=== PATIENT | female | born 1945 | race African-American/Black ===

== ENCOUNTER 2016-09-07 20:18 | Emergency (ER) | payer MEDICARE, OTHER ==
[~2016-09-07] VITALS: Ht 167.6 cm; Wt 136.1 kg
[~2016-09-07 20:18] MED LIST: ASPI81TA11 PO; CETI10TA16 PO; DARB60DI SQ; DILT180C29 PO; EZET10TA3 PO; FLUT16SP NS; INSU100C4 SQ; INSU100I13 SQ; LEVO50TA5 PO; LUBI24CA5 PO; LUBI8CAP3 PO; MIDO5TAB PO; RANI300C PO; SEVE800T9 PO; SIMV40TA3 PO; WARF3TAB7 PO
[2016-09-07] MEDS ORDERED: HYDROCODONE/APAP 5/325MG TABLET. PO ONE (22:00)
[2016-09-07 22:30] VITALS: BP 155/65
[2016-09-07] MEDS ORDERED: HYDR-2666 PO (22:55)
--- NOTE | 2016-09-07 22:56 | PHYS DOC ---
Past Medical History Past Medical History: Anemia, CAD, Cancer, Diabetes-Type II, High Cholesterol, Heart Disease, Hypertension, Renal Failure (on Hemodialysis), Other Additional Past Medical Histor: uterine cancer Past Surgical History: Hysterectomy, Other Additional Past Surgical Histo: FISTULA- L upper arm Alcohol Use: None Drug Use: None Adult General Chief Complaint Chief Complaint: UPPER EXTREMITY PAIN HPI HPI Patient is a 70 year old female who presents with 2 days worse than chronic right shoulder pain. Has pain mostly to anterior shoulder. States pain is constant ache at rest, but it is severe with range of motion of shoulder. Has shooting pains down the right arm. She denies injury or inciting event. She denies numbness, tingling, weakness, chest pain, dyspnea, lightheadedness, diaphoresis. Review of Systems Review of Systems Constitutional: Denies fever or chills [] Eyes: Denies change in visual acuity, redness, or eye pain [] HENT: Denies nasal congestion or sore throat [] Respiratory: Denies cough or shortness of breath [] Cardiovascular: No additional information not addressed in HPI [] GI: Denies abdominal pain, nausea, vomiting, bloody stools or diarrhea [] : Denies dysuria or hematuria [] Musculoskeletal: Denies back pain [] Integument: Denies rash or skin lesions [] Neurologic: Denies headache, focal weakness or sensory changes [] Endocrine: Denies polyuria or polydipsia [] Current Medications Current Medications Current Medications Medications (Trade) Dose Ordered Sig/Kenney Start Time Stop Time Status Last Admin Dose Admin Acetaminophen/ Hydrocodone Bitart (Lortab 5/325) 1 tab 1X ONCE 09/07/16 22:00 09/07/16 22:01 DC 09/07/16 21:57 1 TAB Allergies Allergies Allergies Coded Allergies Type Severity Reaction Last Updated Verified No Known Drug Allergies 03/08/14 No Physical Exam Physical Exam Constitutional: Well developed, well nourished, no acute distress, non-toxic appearance. [] HENT: Normocephalic, atraumatic, bilateral external ears normal, oropharynx moist, nose normal. [] Eyes: PERRLA, EOMI. [] Neck: Normal range of motion, supple. [] Cardiovascular:Heart rate regular rhythm [] Lungs & Thorax: Bilateral breath sounds clear to auscultation [] Abdomen: Bowel sounds normal, soft, no tenderness. [] Skin: Warm, dry, no erythema, no rash. [] Back: Normal ROM. [] Extremities: RUE with no obvious deformity or discoloration; Has tenderness to AC joint and anterior shoulder soft tissues with no palpable abnormality; Full ROM with shoulder/elbow/wrist/hand, but has severe pain with shoulder ROM; Can pronate/supinate; Can make fist/ok sign/thumb up/finger cross and spread; Can flex/ex wrist; Good radial pulse and brisk cap refill equal bilaterally; sensation intact to light touch m/u/r/ax nerves Neurologic: Alert and oriented X 3, normal motor function, normal sensory function, no focal deficits noted. [] Psychologic: Affect normal, judgement normal, mood normal. [] Current Patient Data Vital Signs Vital Signs Date Time Temp Pulse Resp B/P Pulse Ox O2 Delivery O2 Flow Rate FiO2 09/07/16 22:30 78 155/65 97 Room Air 09/07/16 21:57 18 09/07/16 20:25 97.5 97.5 Radiology/Procedures Radiology/Procedures Right shoulder x-rays interpreted by me with no acute fracture or dislocation, has degenerative changes Course & Med Decision Making Course & Med Decision Making Pertinent Labs and Imaging studies reviewed. (See chart for details) Suspect shoulder degenerative disease vs rotator cuff pathology. Discussed need for further workup and pain management by PCP. Return precautions given. She understands and agrees with plan. Dragon Disclaimer Dragon Disclaimer This electronic medical record was generated, in whole or in part, using a voice recognition dictation system. Departure Departure Impression: Primary Impression: Right shoulder pain Disposition: 01 HOME, SELF-CARE Condition: STABLE Referrals: Joanne HUFF MD (PCP) Patient Instructions: Shoulder Pain, [id number] Additional Instructions: Take Tylenol as needed for moderate pain. Take hydrocodone as needed for severe pain. Do not drink, drive or operate heavy machinery after taking hydrocodone as it may make you sleepy. Follow-up with your primary care doctor. Return for any concerns. Scripts Hydrocodone Bit/Acetaminophen (Hydrocodone-Apap 5-325 )1 Each Tablet1-2 Tab PO PRN Q6HRS PRN PAIN #10 TAB Prov:Heide MCGARRY MD 09/07/16 Problem Qualifiers Primary Impression: Right shoulder pain Chronicity: acute Qualified Code: M25.511 - Pain in right shoulder Heide MCGARRY MD Sep 07, 2016 22:56
--- NOTE | 2016-09-08 07:54 | RAD ---
Right shoulder, 3 views, 09/07/2016: History: Shoulder pain There are severe degenerative changes at the glenohumeral articulation. Tiny soft tissue calcifications along the lateral aspect of the humeral head are probably of tendinous origin. There is mild degenerative change at the AC joint. No acute fracture or dislocation is identified. IMPRESSION: 1. Severe degenerative change. 2. No acute bony abnormality is detected.
== END 2016-09-07 23:02 | disposition home or self-care (01) ==
LOC: ER 20:18
DX: M25.511 Pain in right shoulder (principal); G89.29 Other chronic pain; E11.9 Type 2 diabetes mellitus without complications; E78.00 Pure hypercholesterolemia, unspecified; I25.10 Atherosclerotic heart disease of native coronary artery without angina pectoris; Z99.2 Dependence on renal dialysis; E11.22 Type 2 diabetes mellitus with diabetic chronic kidney disease; I12.9 Hypertensive chronic kidney disease with stage 1 through stage 4 chronic kidney disease, or unspecified chronic kidney disease; N18.9 Chronic kidney disease, unspecified; Z90.710 Acquired absence of both cervix and uterus
CPT/HCPCS: 73030; 99284

== ENCOUNTER 2016-12-14 11:02 | Emergency (ER) | payer MEDICARE, OTHER ==
[~2016-12-14] VITALS: Ht 167.6 cm; Wt 136.1 kg
[~2016-12-14 11:02] MED LIST changes: +EZET10TA18 PO; -EZET10TA3 PO; +HYDR-2758 PO; -LUBI24CA5 PO; +LUBI24CA7 PO; -LUBI8CAP3 PO; +LUBI8CAP4 PO
[2016-12-14] MEDS ORDERED: oxyCODONE/APAP 5/325 1 TAB TABLET PO ONE (11:45)
--- NOTE | 2016-12-14 11:45 | RAD ---
Indication: Pain in the left great toe. Time of exam 11:37 AM 3 views of the left great toe demonstrate 2 linear metallic opacities within the soft tissues of the great toe. These are located distally and slightly lateral to the tuft of the great toe. These appear to be closer to the plantar surface. The more distal opacity is approximately 7 mm in length and the slightly more proximal opacity is 6 mm in length. No fractures are seen. There are severe degenerative changes of the interphalangeal joint of the great toe. The MTP joint is intact. In addition, there appears to be a linear metallic opacity adjacent to the proximal phalanx of the third toe, along the medial cortex mid shaft. This too is consistent with a foreign body. The midfoot is unremarkable. There is a large plantar calcaneal spur. Impression: Foreign bodies within the great toe and third toe, as described. Impression: Linear metallic opacities within the soft tissues of the great toe, lateral to the tuft, consistent with foreign bodies.
--- NOTE | 2016-12-14 11:50 | PHYS DOC ---
Past Medical History Past Medical History: Anemia, CAD, Cancer, Diabetes-Type II, High Cholesterol, Heart Disease, Hypertension, Renal Failure, Other Additional Past Medical Histor: uterine cancer Past Surgical History: Hysterectomy, Other Additional Past Surgical Histo: FISTULA- L upper arm Alcohol Use: None Drug Use: None Adult General Chief Complaint Chief Complaint: LOWER EXT PAIN HPI HPI Patient is a 71 year old female presenting to the emergency department for evaluation of left big toe pain that started yesterday and has persisted. The big toe phalangeal joint has redness medially with some swelling but there is no erythema warmth or color change otherwise. She has toenails painted on but from the part that is not exposed appear she has normal cap refill. She denies any weakness numbness or tingling and she has a strong dorsalis pedis pulse. Patient denies any history of gout but says that she has a family history of it. Review of Systems Review of Systems Constitutional: Denies fever or chills [] Respiratory: Denies cough or shortness of breath [] Cardiovascular: No additional information not addressed in HPI [] GI: Denies abdominal pain, nausea, vomiting, bloody stools or diarrhea [] Musculoskeletal: + joint pain [] Integument: + redness Current Medications Current Medications Current Medications Medications (Trade) Dose Ordered Sig/Kenney Start Time Stop Time Status Last Admin Dose Admin Dexamethasone (Decadron) 8 mg 1X STAT 12/14/16 12:06 12/14/16 12:08 DC Oxycodone/ Acetaminophen (Percocet 5/325) 2 tab 1X ONCE 12/14/16 11:45 12/14/16 11:46 DC 12/14/16 11:39 2 TAB Allergies Allergies Allergies Coded Allergies Type Severity Reaction Last Updated Verified No Known Drug Allergies 03/08/14 No Physical Exam Physical Exam Constitutional: Well developed, well nourished, no acute distress, non-toxic appearance. [] Cardiovascular:Heart rate regular rhythm, no murmur [] Lungs & Thorax: Bilateral breath sounds clear to auscultation [] Abdomen: Bowel sounds normal, soft, no tenderness, no masses, no pulsatile masses. [] Skin: Warm, dry, no erythema, no rash. [] Back: No tenderness, no CVA tenderness. [] Extremities: No tenderness, no cyanosis, no clubbing, ROM intact, no edema. [] Neurologic: Alert and oriented X 3, normal motor function, normal sensory function, no focal deficits noted. [] Current Patient Data Vital Signs Vital Signs Date Time Temp Pulse Resp B/P (MAP) Pulse Ox O2 Delivery O2 Flow Rate FiO2 12/14/16 11:39 16 12/14/16 11:20 98.1 80 154/67 (96) 100 Room Air 98.1 EKG EKG [] Radiology/Procedures Radiology/Procedures Indication: Pain in the left great toe. Time of exam 11:37 AM 3 views of the left great toe demonstrate 2 linear metallic opacities within the soft tissues of the great toe. These are located distally and slightly lateral to the tuft of the great toe. These appear to be closer to the plantar surface. The more distal opacity is approximately 7 mm in length and the slightly more proximal opacity is 6 mm in length. No fractures are seen. There are severe degenerative changes of the interphalangeal joint of the great toe. The MTP joint is intact. In addition, there appears to be a linear metallic opacity adjacent to the proximal phalanx of the third toe, along the medial cortex mid shaft. This too is consistent with a foreign body. The midfoot is unremarkable. There is a large plantar calcaneal spur. Impression: Foreign bodies within the great toe and third toe, as described. Impression: Linear metallic opacities within the soft tissues of the great toe, lateral to the tuft, consistent with foreign bodies. DICTATED and SIGNED BY: KRISHAN EISENBERG MD DATE: 12/14/16 1136 Course & Med Decision Making Course & Med Decision Making I spoke to Dr. Huff and he said these foreign bodies have been noted on prior x- rays and said that there was no etiology to these foreign bodies found but they have been there for years. This likely has nothing to do with her presentation today so she'll be treated for possible gout flare I do not see any signs of limb ischemia DVT or acute infection. Patient's pain is better with Percocet here and she'll be given a small dose of Decadron as well. She was told that she needs to watch her sugars 3-4 times a day and adjust her insulin as her blood sugars are likely rise. Patient and daughter aware and agreeable with plan for discharge and verbalized understanding of the need for follow-up and strict ER return precautions discussed worsening pain redness swelling or other general concerns. Dr. Huff said he would follow her on Friday to ensure improvement and patient verbalized understanding of this. Dragon Disclaimer Dragon Disclaimer This electronic medical record was generated, in whole or in part, using a voice recognition dictation system. Departure Departure Impression: Primary Impression: Toe pain, left Referrals: KELSIE HUFF MD (PCP) Patient Instructions: Gout Additional Instructions: DR HUFF WANTS TO SEE YOU ON FRIDAY. TAKE THE PERCOCET FOR PAIN. IF YOU HAVE WORSENING REDNESS, SWELLING, FEVERS, OR OTHER GENERAL CONCERNS COME BACK TO THE ER IMMEDIATELY. THANK YOU! Scripts Oxycodone/Apap 5-325 (PERCOCET 5-325 MG TABLET) 1 Each Tablet 1 TAB PO PRN Q6HRS Y for PAIN, #20 TAB 0 Refills Prov: ELLIE MAJANO DO 12/14/16 ELLIE MAJANO DO Dec 14, 2016 11:50
[2016-12-14] MEDS ORDERED: DEXAMETHASONE 4 MG TABLET PO STA (12:06)
[2016-12-14] MEDS ORDERED: OXYC-323 PO (12:09)
[2016-12-14 12:35] VITALS: BP 144/65
[2016-12-20] MEDS ORDERED: FOLI0.8T3 PO (12:37)
[2016-12-20] MEDS ORDERED: CINA30TA2 PO (12:37)
== END 2016-12-14 12:34 | disposition home or self-care (01) ==
LOC: ER 11:02
DX: M79.675 Pain in left toe(s) (principal); I25.10 Atherosclerotic heart disease of native coronary artery without angina pectoris; E78.00 Pure hypercholesterolemia, unspecified; I13.10 Hypertensive heart and chronic kidney disease without heart failure, with stage 1 through stage 4 chronic kidney disease, or unspecified chronic kidney disease; E11.22 Type 2 diabetes mellitus with diabetic chronic kidney disease; N18.9 Chronic kidney disease, unspecified; Z90.710 Acquired absence of both cervix and uterus; Z79.4 Long term (current) use of insulin
CPT/HCPCS: 73630; 99284; J8540

== ENCOUNTER → 2016-12-20 | Outpatient (CLI) | payer MEDICARE, OTHER ==
[~2016-12-20] VITALS: Ht 167.6 cm; Wt 136.1 kg
[~2016-12-20] MED LIST changes: +ALTEPLASE 2MG VIAL 10 MG in IV NORMAL SALINE 50ML 50 ML IV ONE; +CINA30TA2 PO; +FOLI0.8T3 PO; +HEPARIN for IV BOLUS 10,000 UNIT/10 ML VIAL. IV ONE; +HEPARIN for IV BOLUS 10,000 UNIT/10 ML VIAL. ONE; +HYDROmorphone 2 MG/ML VIAL IV PRN; +IODIXANOL 320 MG/ML 100 ML VIAL. IART ONE; +IODIXANOL 320 MG/ML 100 ML VIAL. ONE; +IODIXANOL 320MG/ML 50ML VIAL. ONE; +IV RINGERS,LACTATED 1000ML 1,000 ML IV SCH; +LIDOCAINE 1% / SOD BICARB 8.4% 20 ML VIAL. IJ ONE; +LIDOCAINE 1% 1 ML SYRINGE. ID PRN; +MIDAZOLAM HCL/PF 2 MG/2 ML VIAL. ONE; +MORPHINE SULFATE 2 MG/ML DISP.SYRIN. IV PRN; +ONDANSETRON PF 4 MG/2 ML VIAL. IV PRN; +OXYC-323 PO; +PROCHLORPERAZINE 10 MG/2 ML VIAL. IV PRN; +PROPOFOL 20 ML IV ONE; +PROPOFOL 50 ML IV ONE; +SODIUM POLYSTYRENE SULFONATE 15 GM/60 ML ORAL.SUSP. PO ONE; +fentaNYL PF VIAL 100 MCG/2 ML VIAL IV PRN; +fentaNYL PF VIAL 100 MCG/2 ML VIAL ONE
[2016-12-20 13:23] LABS: BASO % 1 % (0-3); EOS % 1 % (0-3); HEMATOCRIT 31.2 % (36.0-47.0); LYMPH # 1.6 x10^3/uL (1.0-4.8); LYMPH % 21 % (24-48); MEAN CORPUSCULAR HEMOGLOBIN 32 pg (25-35); MEAN CORPUSCULAR HGB CONC 32 g/dL (31-37); MEAN CORPUSCULAR VOLUME 98 fL (79-100); MONO % 6 % (0-9); NEUT % 72 % (31-73); PLATELET COUNT 185 x10^3/uL (140-400); RED BLOOD COUNT 3.17 x10^6/uL (3.50-5.40); RED CELL DISTRIBUTION WIDTH 15.1 % (11.5-14.5); WHITE BLOOD COUNT 7.7 x10^3/uL (4.0-11.0)
[2016-12-20 13:33] LABS: INR 1.1 (0.8-1.1); PROTHROMBIN TIME PATIENT 13.7 SEC (11.7-14.0)
[2016-12-20 13:53] LABS: CALCIUM 8.4 mg/dL (8.5-10.1); CREATININE 13.8 mg/dL (0.6-1.0); GFR 3.2; POTASSIUM 5.8 mmol/L (3.5-5.1)
[2016-12-20 13:54] VITALS: BP_SYST 204
--- NOTE | 2016-12-20 15:55 | PDOC1 ---
History and Physical Date of Procedure Date of Admission 12/20/16 Procedure Procedure Power Pulse AngioJet t-PA declot left upper arm HeRO graft Indication Indication 71 YO diabetic female with ESRD and with thrombosed HeRO graft. Past Medical History Past Medical History See Nursing Pre Procedure PMH Past Surgical History Past Surgical History See Nursing Pre Procedure PSH Current Medications Current Medications Current Medications Alteplase, Recombinant 10 mg/ Sodium Chloride 50 ml @ 0 mls/hr 1X ONCE IV ; Start 12/20/16 at 13:15; Stop 12/20/16 at 13:16; Status DC Propofol 20 ml @ As Directed STK-MED ONCE IV ; Start 12/20/16 at 13:01; Stop 12/20 at 13:02; Status DC Propofol 50 ml @ As Directed STK-MED ONCE IV ; Start 12/20/16 at 13:01; Stop 12/20 at 13:02; Status DC Midazolam HCl (Versed) 2 mg STK-MED ONCE .ROUTE ; Start 12/20/16 at 13:02; Stop 12/20/16 at 13:03; Status DC Iodixanol (Visipaque 320) 50 ml STK-MED ONCE .ROUTE ; Start 12/20/16 at 13:15; Stop 12/20/16 at 13:16; Status DC Lidocaine/Sodium Bicarbonate (Buffered Lidocaine 1%) 20 ml STK-MED ONCE IJ ; Start 12/20/16 at 13:16; Stop 12/20/16 at 13:17; Status DC Heparin Sodium/ Sodium Chloride 500 ml @ As Directed STK-MED ONCE .ROUTE ; Start 12/20/16 at 13:16; Stop 12/20/16 at 13:17; Status DC Iodixanol (Visipaque 320) 100 ml STK-MED ONCE .ROUTE ; Start 12/20/16 at 13:16; Stop 12/20/16 at 13:17; Status DC Heparin Sodium (Porcine) (Heparin Sodium) 10,000 unit STK-MED ONCE .ROUTE ; Start 12/20/16 at 14:13; Stop 12/20/16 at 14:14; Status DC Heparin Sodium/ Sodium Chloride 1,000 unit 1X ONCE IART ; Start 12/20/16 at 14: 15; Stop 12/20/16 at 14:17; Status DC Lidocaine/Sodium Bicarbonate (Buffered Lidocaine 1%) 20 ml 1X ONCE IJ ; Start 12/20/16 at 14:15; Stop 12/20/16 at 14:17; Status DC Iodixanol (Visipaque 320) 100 ml 1X ONCE IART ; Start 12/20/16 at 14:15; Stop at 14:17; Status DC Heparin Sodium (Porcine) (Heparin Sodium) 4,000 unit 1X ONCE IV ; Start at 14:15; Stop 12/20/16 at 14:17; Status DC Ondansetron HCl (Zofran) 4 mg PRN Q6HRS PRN IV NAUSEA/VOMITING; Start 12/20/16 at 14:30; Stop 12/21/16 at 14:29 Fentanyl Citrate (Fentanyl 2ml Vial) 25 mcg PRN Q5MIN PRN IV MILD PAIN; Start 12/20/16 at 14:30; Stop 12/21/16 at 14:29 Fentanyl Citrate (Fentanyl 2ml Vial) 50 mcg PRN Q5MIN PRN IV MODERATE PAIN; Start 12/20/16 at 14:30; Stop 12/21/16 at 14:29 Morphine Sulfate 1 mg PRN Q10MIN PRN IV SEVERE PAIN; Start 12/20/16 at 14:30; Stop 12/21/16 at 14:29 Ringer's Solution 1,000 ml @ 30 mls/hr Q24H IV ; Start 12/20/16 at 14:20; Stop 12/21/16 at 02:19 Lidocaine HCl 2 ml PRN 1X PRN ID PRIOR TO IV START; Start 12/20/16 at 14:30; Stop 12/21/16 at 14:29 Hydromorphone HCl (Dilaudid) 0.5 mg PRN Q10MIN PRN IV SEV PAIN, Second choice; Start 12/20/16 at 14:30; Stop 12/21/16 at 14:29 Prochlorperazine Edisylate (Compazine) 5 mg PACU PRN PRN IV NAUSEA, MRX1; Start 12/20/16 at 14:30; Stop 12/21/16 at 14:29 Propofol 50 ml @ As Directed STK-MED ONCE IV ; Start 12/20/16 at 14:57; Stop 12/20 at 14:58; Status DC Fentanyl Citrate (Fentanyl 2ml Vial) 100 mcg STK-MED ONCE .ROUTE ; Start at 14:57; Stop 12/20/16 at 14:58; Status DC Iodixanol (Visipaque 320) 50 ml STK-MED ONCE .ROUTE ; Start 12/20/16 at 15:17; Stop 12/20/16 at 15:18; Status DC Active Scripts Active Hydrocodone-Apap 5-325 (Hydrocodone Bit/Acetaminophen) 1 Each Tablet 1-2 Tab PO PRN Q6HRS PRN Lantus Solostar (Insulin Glargine,Hum.rec.anlog) 300 Units/3 Ml Insuln.pen 20 Units SQ QHS Reported Nephro-Donovan Tablet (Folic Acid/Vitamin B Comp W-C) 0.8 Mg Tablet 0.8 Mg PO DAILY Sensipar (Cinacalcet Hcl) 30 Mg Tablet 30 Mg PO DAILY Amitiza (Lubiprostone) 8 Mcg Capsule 1 Cap PO BID Low Dose Aspirin Ec (Aspirin) 81 Mg Tablet.dr 1 Tab PO DAILY Midodrine Hcl 5 Mg Tablet 5 Mg PO PRN PRN Simvastatin 40 Mg Tablet 40 Mg PO HS Levothyroxine Sodium 50 Mcg Tablet 50 Mcg PO DAILY Ranitidine Hcl 300 Mg Capsule 300 Mg PO BID Novolog (Insulin Aspart) 100 Unit/1 Ml Cartridge 10 Unit SQ TIDACHC Allergies Allergies: Coded Allergies: No Known Drug Allergies (Unverified , 03/08/14) Physical Exam Vital Signs Vital Signs Date Time Temp Pulse Resp B/P (MAP) Pulse Ox O2 Delivery O2 Flow Rate FiO2 12/20/16 13:54 97.9 14 204/ 100 Room Air 97.9 Lungs: Clear to auscultation Heart: Regular rate Psych/Mental Status: Mental status NL Vascular No pulse or thrill within left upper arm HeRO graft Other Morbidly obese Assessment Assessment 71 YO diabetic, morbidly obese with ESRD and with acutely thrombosed left upper arm HeRO graft Problems: Plan Plan Power Pulse AngioJet t-PA declot HeRO graft with SENIOR ENGINEERING SPECIALIST as needed TOMAS COBIAN MD Dec 20, 2016 15:55
--- NOTE | 2016-12-20 16:01 | PDOC ---
Exam Medication Technician Medication Technician Mani [employer] Sales Manager Retail Advertising Sales Manager Benson Delgadillo Pre-Procedure Diagnosis Pre-Procedure Diagnosis 71 YO diabetic, morbidly obese female with ESRD and with thrombosed left upper arm HeRO graft Post-Procedure Diagnosis Post-Procedure Diagnosis Same Procedure Performed Procedure Performed Power Pulse AngioJet t-PA thrombectomy with SECURITY SME left upper arm HeRO graft. Type of Anesthesia Type of Anesthesia MAC by anesthesia Estimated Blood Loss EBL: 50 cc Condition of Patient Condition of Patient Hemodynamically stable. No apparent complication. Disposition Disposition From IR to PACU, then home post recovery, if no bleeding or other issues. F/u with Renal. OK to use HeRO graft for HD. Full report to follow. TOMAS COBIAN MD Dec 20, 2016 16:00
[2016-12-20 16:39] VITALS: BP 197/81
--- NOTE | 2016-12-20 17:08 | RAD ---
Power pulse AngioJet alteplase declot + BOW MAKING MACHINE OPERATOR of left upper arm AV graft and HeRO graft Indication: 71-year-old female with end stage renal disease, and with a thrombosed left upper arm AV graft and HeRO graft. Declot procedure has been requested by renal. Fluoroscopy time: 25.2 minutes Kerma-area product: 149 Gycm2 Anesthesia: Mac anesthesia was provided by the department of anesthesiology. Contrast material: 98 cc Visipaque 320 Sterility: All elements of maximal sterile barrier technique, hand hygiene, skin preparation, and, if ultrasound was used, sterile ultrasound technique were followed. Anticoagulation: 5000 units heparin Procedure: Informed consent was obtained from the patient. She was placed supine on the angiography table. Mac anesthesia was provided by the department of anesthesiology. Left upper arm was prepped and draped in the usual sterile fashion, utilizing all elements of maximal sterile barrier technique, as described above. Alteplase power pulse AngioJet declot HeRO graft: Preliminary fluoroscopic evaluation confirmed the presence of an indwelling HeRO graft, with its tip projected over upper right atrium. Preliminary ultrasound examination of left upper arm confirmed complete AV graft thrombosis. A site suitable for ultrasound-guided insertion of a mid arterial limb access sheath was selected--- this site was documented with a single hard copy ultrasound image. Using aseptic technique, local anesthesia, and direct sterile ultrasound guidance, a 21-gauge micropuncture needle was successfully introduced into mid arterial limb of the thrombosed AV graft, with its tip directed peripherally. The micropuncture needle was exchanged over a microguidewire for a micropuncture sheath. The micropuncture sheath was removed over a 0.035 inch guidewire. The percutaneous tract was dilated and a short 7 Israeli sheath was successfully introduced. A 5 Israeli Berenstein catheter was then advanced through the 7 Israeli sheath over a Glidewire was successfully directed centrally to lie at tip of the HeRO graft outflow catheter within upper right atrium. The Berenstein catheter was then slowly retracted, and pull-back shuntogram DSA images were obtained. Those images revealed wide patency of the 5 Israeli HeRO graft outflow catheter from a level just medial to the radiopaque connector to the catheter tip. Obstructing intraluminal thrombus was noted at the level of the HeRO graft connector, and within a previously placed endovascular stent extending peripherally from the connector. Partially obstructing intraluminal thrombus was also identified throughout the AV graft, from the AV graft-HeRO graft anastomosis through the 7 Israeli mid arterial limb sheath. 5000 units heparin was given bolus IV. The 5 Israeli Berenstein catheter was then reintroduced into the HeRO graft outflow catheter, and was then removed over a long Amplatz wire, which was positioned with its tip within inferior vena cava. The 6 Israeli catheter from the AngioJet power pulse thrombectomy set was then advanced over the Amplatz wire into mid segment of the outflow catheter. The AngioJet catheter was then slowly withdrawn, depositing 10 mg t-PA in 50 cc normal saline across the thrombosed graft segments. The t-PA was allowed to dwell 10 minutes. Conventional AngioJet thrombectomy was then repeated. This resulted in marked reduction of acute intraluminal thrombus. Gentle balloon angioplasty of the connector and lateral aspect of the outflow catheter was then performed utilizing a 5 mm x 100 mm Powerflex BOW MAKING MACHINE OPERATOR balloon, inflated to a peak pressure of 6 andrew. The 5 mm BOW MAKING MACHINE OPERATOR balloon was then exchanged for a 6 mm x 40 mm Powerflex BOW MAKING MACHINE OPERATOR balloon, which was utilized to perform balloon angioplasty of residual intraluminal thrombus within the intravascular stent, extending peripheral from the connector. The 6 mm BOW MAKING MACHINE OPERATOR balloon was then exchanged for a 7 mm x 80 mm conquest BOW MAKING MACHINE OPERATOR balloon, which was utilized to perform high-pressure balloon angioplasty of venous limb and loop of the AV graft, peripheral to the AV graft-HeRO graft anastomosis. The 7 mm BOW MAKING MACHINE OPERATOR balloon was then deflated and removed. Attention was then turned to worship of arterial inflow. Repeat ultrasound examination over left upper arm revealed a now patent proximal venous limb site suitable for sheath placement. This was documented with a hard copy ultrasound image. Using aseptic technique, local anesthesia, direct sterile ultrasound guidance, and the micropuncture system, a short 6 Israeli proximal venous limb sheath was successfully introduced, with its tip directed peripherally. A 5 mm x 20 mm Cordis extreme BOW MAKING MACHINE OPERATOR balloon was then advanced through the 6 Israeli sheath over a Glidewire across arterial anastomosis into proximal brachial artery. The BOW MAKING MACHINE OPERATOR balloon was inflated, and was 3 times pulled across arterial anastomosis, resulting in dislodgment of arterial plug with reestablishment of brisk arterial inflow. The 5 mm BOW MAKING MACHINE OPERATOR balloon was then deflated and removed. Completion DSA images revealed wide patency of the left upper arm AV graft and the HeRO graft, apart from minor irregular narrowing within mid segment of venous limb. There was no obstructing intraluminal thrombus, and no significant residual stenosis. Patient tolerated the procedure well without apparent complication. The two AV graft access sheaths were removed and hemostasis was achieved utilizing 2-0 silk in a pursestring fashion. The patient was transported from the angiography suite to the postanesthesia care unit in hemodynamically stable condition. Impression: Successful, uneventful power pulse AngioJet alteplase thrombectomy, followed by balloon angioplasty, of left upper arm AV graft-HeRO graft dialysis circuit, as described..
== END | disposition home or self-care (01) ==
LOC: INTRAD 12:13
PROVIDERS: ATTEND Internal Medicine Nephrology
DX: T82.868A Thrombosis due to vascular prosthetic devices, implants and grafts, initial encounter (principal); Y84.8 Other medical procedures as the cause of abnormal reaction of the patient, or of later complication, without mention of misadventure at the time of the procedure; E11.22 Type 2 diabetes mellitus with diabetic chronic kidney disease; I12.0 Hypertensive chronic kidney disease with stage 5 chronic kidney disease or end stage renal disease; N18.6 End stage renal disease; Z99.2 Dependence on renal dialysis; E66.9 Obesity, unspecified; K21.9 Gastro-esophageal reflux disease without esophagitis; Z86.39 Personal history of other endocrine, nutritional and metabolic disease; Z87.39 Personal history of other diseases of the musculoskeletal system and connective tissue
CPT/HCPCS: 36415; 36905; 76937; 80048; 85027; 85610; C1757; C1758; C1769; C1892; C1894; J2250; J2704; J3010

== ENCOUNTER 2017-01-04 15:29 | Emergency (ER) | payer MEDICARE, OTHER ==
[~2017-01-04] VITALS: Ht 170.2 cm; Wt 127.0 kg
[~2017-01-04 15:29] MED LIST changes: -ALTEPLASE 2MG VIAL 10 MG in IV NORMAL SALINE 50ML 50 ML IV ONE; -HEPARIN for IV BOLUS 10,000 UNIT/10 ML VIAL. IV ONE; -HEPARIN for IV BOLUS 10,000 UNIT/10 ML VIAL. ONE; -HYDROmorphone 2 MG/ML VIAL IV PRN; -IODIXANOL 320 MG/ML 100 ML VIAL. IART ONE; -IODIXANOL 320 MG/ML 100 ML VIAL. ONE; -IODIXANOL 320MG/ML 50ML VIAL. ONE; -IV RINGERS,LACTATED 1000ML 1,000 ML IV SCH; -LIDOCAINE 1% / SOD BICARB 8.4% 20 ML VIAL. IJ ONE; -LIDOCAINE 1% 1 ML SYRINGE. ID PRN; -MIDAZOLAM HCL/PF 2 MG/2 ML VIAL. ONE; -MORPHINE SULFATE 2 MG/ML DISP.SYRIN. IV PRN; -ONDANSETRON PF 4 MG/2 ML VIAL. IV PRN; -PROCHLORPERAZINE 10 MG/2 ML VIAL. IV PRN; -PROPOFOL 20 ML IV ONE; -PROPOFOL 50 ML IV ONE; -SODIUM POLYSTYRENE SULFONATE 15 GM/60 ML ORAL.SUSP. PO ONE; -fentaNYL PF VIAL 100 MCG/2 ML VIAL IV PRN; -fentaNYL PF VIAL 100 MCG/2 ML VIAL ONE
[2017-01-04 15:45] VITALS: BP 163/68
--- NOTE | 2017-01-04 16:57 | PHYS DOC ---
Past Medical History Past Medical History: Anemia, CAD, Cancer, Diabetes-Type II, High Cholesterol, Heart Disease, Hypertension, Renal Failure, Other Additional Past Medical Histor: uterine cancer Past Surgical History: Hysterectomy, Other Additional Past Surgical Histo: FISTULA- L upper arm Alcohol Use: None Drug Use: None Adult General Chief Complaint Chief Complaint: SUTURE/STAPLE REMOVAL [facility] Patient is a 71 year old female presents to the emergency department with c/o sutures being placed by interventional radiology. Patient states she did follow- up with her primary care physician refused to remove the sutures. She states that she had gone to dialysis and dialysis will not remove the sutures as well. Patient states the sutures of been in place since 12/20/16. She denies any drainage or discharge coming from the site. She does have scabs noted over the areas. Review of Systems Review of Systems Constitutional: Denies fever or chills [] Eyes: Denies change in visual acuity, redness, or eye pain [] HENT: Denies nasal congestion or sore throat [] Respiratory: Denies cough or shortness of breath [] Cardiovascular: No additional information not addressed in HPI [] GI: Denies abdominal pain, nausea, vomiting, bloody stools or diarrhea [] : Denies dysuria or hematuria [] Musculoskeletal: Denies back pain or joint pain [] Integument: Denies rash or skin lesions. Patient presents for suture removal Neurologic: Denies headache, focal weakness or sensory changes [] Endocrine: Denies polyuria or polydipsia [] Allergies Allergies Allergies Coded Allergies Type Severity Reaction Last Updated Verified No Known Drug Allergies 12/20/16 No Physical Exam Physical Exam Constitutional: Well developed, well nourished, no acute distress, non-toxic appearance. [] HENT: Normocephalic, atraumatic, bilateral external ears normal, oropharynx moist, no oral exudates, nose normal. [] Eyes: PERRLA, EOMI, conjunctiva normal, no discharge. [] Neck: Normal range of motion, no tenderness, supple, no stridor. [] Cardiovascular:Heart rate regular rhythm Lungs & Thorax: No respiratory distress noted Skin: Warm, dry, no erythema, no rash. Patient with 2 sutures that appear to be intact with no drainage or discharge noted over the area. Patient does have scabs noted over the site. Back: No tenderness Extremities: No tenderness, no cyanosis, no clubbing, ROM intact, no edema. [] Neurologic: Alert and oriented X 3, normal motor function, normal sensory function, no focal deficits noted. [] Psychologic: Affect normal, judgement normal, mood normal. [] Current Patient Data Vital Signs Vital Signs Date Time Temp Pulse Resp B/P (MAP) Pulse Ox O2 Delivery O2 Flow Rate FiO2 01/04/17 15:45 98.1 76 20 98 Room Air 98.1 EKG EKG [] Radiology/Procedures Radiology/Procedures [] Course & Med Decision Making Course & Med Decision Making Pertinent Labs and Imaging studies reviewed. (See chart for details) Patient was noted to have scabs over both of the sutures that are placed. Used hydrogen peroxide and 4 x 4's to soak the areas to remove the scabbed areas to see if we can get down to the bottom of the suture. This was unsuccessful. Spoke with interventional radiology Dr. Auguste who recommends that the patient follow-up with interventional radiology. Patient will be provided with the scheduling number to follow up and make the appointment. Spoke with patient and family members and provided them with the treatment regimen. They agree with the procedure. All questions were answered patient will be discharged home in stable condition signs and symptoms to return back to emergency department as been provided. [] Dragon Disclaimer Dragon Disclaimer This electronic medical record was generated, in whole or in part, using a voice recognition dictation system. Departure Departure Impression: Primary Impression: Visit for suture removal Disposition: 01 HOME, SELF-CARE Condition: STABLE Referrals: KELSIE HUFF MD (PCP) Patient Instructions: Suture Removal-Brief Additional Instructions: Your sutures were attempted to be removed without success. It is recommended that you call the appointment line Friday to set up an appointment with interventional radiology for suture removal. You may call the appointment line at [phone]. Return to the emergency department for any signs and symptoms of become worse. Continue with her dialysis as prescribed. Follow-up through primary care physician as needed. CARI MODI APRN Jan 04, 2017 16:57
== END 2017-01-04 17:46 | disposition home or self-care (01) ==
LOC: ER 15:29
DX: S41.112D Laceration without foreign body of left upper arm, subsequent encounter (principal); E78.00 Pure hypercholesterolemia, unspecified; I13.10 Hypertensive heart and chronic kidney disease without heart failure, with stage 1 through stage 4 chronic kidney disease, or unspecified chronic kidney disease; E11.22 Type 2 diabetes mellitus with diabetic chronic kidney disease; N18.9 Chronic kidney disease, unspecified; Z99.2 Dependence on renal dialysis; I25.10 Atherosclerotic heart disease of native coronary artery without angina pectoris; Z85.42 Personal history of malignant neoplasm of other parts of uterus; Z86.2 Personal history of diseases of the blood and blood-forming organs and certain disorders involving the immune mechanism; Z90.710 Acquired absence of both cervix and uterus; Z98.890 Other specified postprocedural states; X58.XXXD Exposure to other specified factors, subsequent encounter
CPT/HCPCS: 99281

== ENCOUNTER 2017-04-15 13:07 | Emergency (ER) | payer MEDICARE, OTHER ==
[~2017-04-15] VITALS: Ht 167.6 cm; Wt 136.1 kg
--- NOTE | 2017-04-15 12:33 | PHYS DOC ---
Past Medical History Past Medical History: Anemia, CAD, Cancer, Diabetes-Type II, High Cholesterol, Heart Disease, Hypertension, Renal Failure, Other Additional Past Medical Histor: uterine cancer Past Surgical History: Hysterectomy, Other Additional Past Surgical Histo: FISTULA- L upper arm Alcohol Use: None Drug Use: None Adult General Chief Complaint Chief Complaint: LOWER EXT PAIN HPI HPI Patient is a 71 year old female who presents with left lower extremity pain for 2 days. Patient states it hurts primarily in her proximal thigh, she denies any injury, fall or trauma. She has had a DVT in the past but no longer takes anticoagulation as it was many years ago. Patient is unsure if this feels similar to her prior DVT. Patient denies fevers, has end-stage renal disease and dialyzed earlier today. Primary care physician Dr. Huff, loader engineer is Dr. Wellington Review of Systems Review of Systems Constitutional: Denies fever or chills [] Eyes: Denies eye pain [] HENT: Denies nasal congestion or sore throat [] Respiratory: Denies cough or shortness of breath [] Cardiovascular: Denies chest pain GI: Denies abdominal pain, nausea, vomiting, or change in stools : Denies dysuria or hematuria [] Musculoskeletal: Denies back pain, reports left leg pain Integument: Denies rash Neurologic: Denies headache, focal weakness or sensory changes [] Current Medications Current Medications Current Medications Medications (Trade) Dose Ordered Sig/Kenney Start Time Stop Time Status Last Admin Dose Admin Acetaminophen/ Hydrocodone Bitart (Lortab 7.5/325) 1 tab 1X ONCE 04/15/17 13:00 04/15/17 13:01 DC 04/15/17 12:39 1 TAB Allergies Allergies Allergies Coded Allergies Type Severity Reaction Last Updated Verified No Known Drug Allergies 12/20/16 No Physical Exam Physical Exam Constitutional: Well developed, well nourished, moderate acute distress secondary to pain, non-toxic appearance. Morbid obesity HENT: Normocephalic, atraumatic, bilateral external ears normal, oropharynx moist, no oral exudates, nose normal. [] Eyes: PERRLA, EOMI, conjunctiva normal, no discharge. [] Neck: Normal range of motion, no tenderness, supple, no stridor. [] Cardiovascular:Heart rate regular with regular rhythm Lungs & Thorax: Bilateral breath sounds clear to auscultation, no wheeze or crackles appreciated Abdomen: soft, no tenderness, no masses, no pulsatile masses. [] Skin: Warm, dry, no erythema, no rash. [] Extremities: Left proximal outer thigh is tender to palpation without appreciable deformity, no shortening or rotation of the leg, DP pulse intact, no erythema or increased warmth, 1+ bilateral lower extremity edema, negative Homans, patient is able to lift the leg off the bed without difficulty, right leg nontender, DP pulse intact Neurologic: Alert and oriented X 3, normal motor function, normal sensory function, no focal deficits noted. [] Psychologic: Affect normal, judgement normal, mood normal. [] Current Patient Data Vital Signs Vital Signs Date Time Temp Pulse Resp B/P (MAP) Pulse Ox O2 Delivery O2 Flow Rate FiO2 04/15/17 14:14 73 142/66 (91) 04/15/17 13:44 98 Room Air 04/15/17 12:39 16 04/15/17 12:20 98.0 98.0 EKG EKG [] Radiology/Procedures Radiology/Procedures Venous Doppler left lower extremity: IMPRESSION: There is no sonographic evidence of deep vein thrombosis in the left lower extremity Pelvis and left hip x-ray:IMPRESSION: 1. Mild degenerative change at both hip joints. 2. No acute bony abnormality is detected. Course & Med Decision Making Course & Med Decision Making Pertinent Labs and Imaging studies reviewed. (See chart for details) Patient was given one [place] tablet for pain control while radiographs and ultrasound performed. No acute findings. [place] improved pt's symptoms. DC'd with strict return precautions, pt dc'd with few norco and recommend f/u with PCP Stewart Disclaimer Dragon Disclaimer This electronic medical record was generated, in whole or in part, using a voice recognition dictation system. Departure Departure Impression: Primary Impression: Leg pain Disposition: 01 HOME, SELF-CARE Condition: STABLE Referrals: Joanne HUFF MD (PCP) Scripts Hydrocodone/Apap 5-325 (NORCO 5-325 TABLET) 1 Each Tablet 1-2 EACH PO PRN Q6HRS Y for PAIN, #15 as needed for pain Prov: RENAN JURADO MD 04/15/17 RENAN JURADO MD Apr 15, 2017 12:33
[~2017-04-15 13:07] MED LIST changes: +HYDROcodone/APAP 7.5/325MG 1 TAB TABLET PO ONE
--- NOTE | 2017-04-15 13:07 | RAD ---
Left lower extremity venous ultrasound, 04/15/2017 : History: Left upper leg pain, previous right DVT Duplex evaluation including grayscale, color flow and spectral Doppler analysis was performed. The femoral and popliteal veins show no filling defects to suggest DVT. The catheter veins were not well-visualized in this patient. No calf vein DVT was identified. IMPRESSION: There is no sonographic evidence of deep vein thrombosis in the left lower extremity
--- NOTE | 2017-04-15 13:49 | RAD ---
Pelvis with left hip, 2 views, 04/15/2017: History: Left hip pain No fracture or dislocation is identified. There is mild narrowing of the hip joints with minimal marginal spurring. There are mild degenerative changes in the lower lumbar spine. There is minimal degenerative change at the symphysis pubis. Aortoiliac and femoral arterial calcifications are noted. IMPRESSION: 1. Mild degenerative change at both hip joints. 2. No acute bony abnormality is detected.
[2017-04-15 14:14] VITALS: BP 142/66
[2017-04-15] MEDS ORDERED: HYDR-971 PO (14:21)
== END 2017-04-15 14:23 | disposition home or self-care (01) ==
LOC: ER 13:07
DX: M79.605 Pain in left leg (principal); E66.01 Morbid (severe) obesity due to excess calories; I25.10 Atherosclerotic heart disease of native coronary artery without angina pectoris; E11.22 Type 2 diabetes mellitus with diabetic chronic kidney disease; I13.11 Hypertensive heart and chronic kidney disease without heart failure, with stage 5 chronic kidney disease, or end stage renal disease; N18.6 End stage renal disease; E78.00 Pure hypercholesterolemia, unspecified; Z86.718 Personal history of other venous thrombosis and embolism; Z90.710 Acquired absence of both cervix and uterus; Z68.42 Body mass index [BMI] 45.0-49.9, adult
CPT/HCPCS: 73502; 93971; 99284-25

== ENCOUNTER 2017-05-06 08:59 | Inpatient (IN) | payer MEDICARE, OTHER ==
[~2017-05-06] VITALS: Ht 167.6 cm; Wt 138.1 kg
[~2017-05-06 08:59] MED LIST changes: +HYDR-971 PO; -HYDROcodone/APAP 7.5/325MG 1 TAB TABLET PO ONE
--- NOTE | 2017-05-06 10:13 | PHYS DOC ---
Past Medical History Past Medical History: Anemia, CAD, Cancer, Diabetes-Type II, High Cholesterol, Heart Disease, Hypertension, Renal Failure, Other Additional Past Medical Histor: uterine cancer Past Surgical History: Hysterectomy, Other Additional Past Surgical Histo: FISTULA- L upper arm Alcohol Use: None Drug Use: None Adult General Chief Complaint Chief Complaint: shunt malfunction HPI HPI Patient is a 71 year old [place] who presents with no thrill of her left upper extremity shunt. She went to dialysis but they were unable to access. Patient has not missed any dialysis sessions, last one being on Friday. She is asymptomatic at this time. Engine Lathe Set Up Operator is Dr. Wellington, primary care physician is Dr. Moore Review of Systems Review of Systems Constitutional: Denies fever or chills [] Eyes: Denies eye pain [] HENT: Denies nasal congestion or sore throat [] Respiratory: Denies cough or shortness of breath [] Cardiovascular: Denies chest pain GI: Denies abdominal pain, nausea, vomiting, or change in stools : Denies dysuria or hematuria [] Musculoskeletal: Denies back pain Integument: Denies rash Neurologic: Denies headache, focal weakness or sensory changes [] Allergies Allergies Allergies Coded Allergies Type Severity Reaction Last Updated Verified No Known Drug Allergies 05/06/17 No Physical Exam Physical Exam Constitutional: Well developed, well nourished, no acute distress, non-toxic appearance. [] HENT: Normocephalic, atraumatic, bilateral external ears normal, oropharynx moist, no oral exudates, nose normal. [] Eyes: PERRLA, EOMI, conjunctiva normal, no discharge. [] Neck: Normal range of motion, no tenderness, supple, no stridor. [] Cardiovascular:Heart rate regular with regular rhythm, no murmur [] Lungs & Thorax: Bilateral breath sounds clear to auscultation [] Abdomen: Bowel sounds normal, soft, no tenderness, no masses, no pulsatile masses. [] Skin: Warm, dry, no erythema, no rash. [] Back: No tenderness, no CVA tenderness. [] Extremities: No tenderness, no cyanosis, no clubbing, ROM intact, no edema.no thrill of RUE Neurologic: Alert and oriented X 3, normal motor function, normal sensory function, no focal deficits noted. [] Current Patient Data Vital Signs Vital Signs Date Time Temp Pulse Resp B/P (MAP) Pulse Ox O2 Delivery O2 Flow Rate FiO2 05/06/17 09:42 68 17 182/74 (110) 98 Room Air 05/06/17 09:05 97.5 97.5 EKG EKG [] Radiology/Procedures Radiology/Procedures [] Course & Med Decision Making Course & Med Decision Making Pertinent Labs and Imaging studies reviewed. (See chart for details) I contacted interventional radiology and they would not be able to immediately work the patient in. I contacted Dr. Moe, who contacted an outside center that also could not work the patient in. Therefore, recommended admission for IR and dialysis. Dr. Moore accepted admission. Dragon Disclaimer Dragon Disclaimer This electronic medical record was generated, in whole or in part, using a voice recognition dictation system. Departure Departure Impression: Primary Impression: Shunt malfunction Disposition: ADMITTED INPATIENT Admitting Physician: Natividad Moore Condition: STABLE Referrals: Joanne MOORE MD (PCP) RENAN JURADO MD May 06, 2017 10:13
[2017-05-06 10:30] LABS: BASO # 0.1 x10^3/uL (0.0-0.2); BASO % 1 % (0-3); EOS % 1 % (0-3); HEMATOCRIT 30.2 % (36.0-47.0); HEMOGLOBIN 9.6 g/dL (12.0-15.5); LYMPH # 1.6 x10^3/uL (1.0-4.8); LYMPH % 22 % (24-48); MEAN CORPUSCULAR HEMOGLOBIN 31 pg (25-35); MEAN CORPUSCULAR HGB CONC 32 g/dL (31-37); MEAN CORPUSCULAR VOLUME 97 fL (79-100); MONO % 7 % (0-9); NEUT % 69 % (31-73); PLATELET COUNT 235 x10^3/uL (140-400); RED BLOOD COUNT 3.11 x10^6/uL (3.50-5.40); RED CELL DISTRIBUTION WIDTH 15.8 % (11.5-14.5); WHITE BLOOD COUNT 7.3 x10^3/uL (4.0-11.0)
[2017-05-06 10:41] LABS: CALCIUM 7.9 mg/dL (8.5-10.1); CREATININE 10.4 mg/dL (0.6-1.0); GFR 4.4; POTASSIUM 4.7 mmol/L (3.5-5.1)
[2017-05-06 10:56] LABS: INR 1.2 (0.8-1.1); PROTHROMBIN TIME PATIENT 14.2 SEC (11.7-14.0)
[2017-05-06] MEDS ORDERED: VENTOLIN HFA18 GM INH (11:02)
[2017-05-06] MEDS ORDERED: AMLO5TAB2 PO (11:02)
[2017-05-06] MEDS ORDERED: CHOL200078 PO (11:03)
[2017-05-06 12:21] VITALS: BP 149/61
[2017-05-06] MEDS ORDERED: IODIXANOL 320 MG/ML 100 ML VIAL. ONE (13:17)
[2017-05-06] MEDS ORDERED: LIDOCAINE 1% / SOD BICARB 8.4% 20 ML VIAL. IJ ONE ×2 (13:17→13:30)
[2017-05-06] MEDS ORDERED: HEPARIN for ARTERIAL LINE 1,500 ML ONE (13:18)
[2017-05-06] MEDS ORDERED: fentaNYL PF VIAL 100 MCG/2 ML VIAL ONE ×2 (13:21→14:19)
[2017-05-06] MEDS ORDERED: MIDAZOLAM HCL/PF 2 MG/2 ML VIAL. ONE ×2 (13:23→14:19)
[2017-05-06] MEDS ORDERED: HEPARIN for IV BOLUS 10,000 UNIT/10 ML VIAL. ONE (13:23)
[2017-05-06] MEDS ORDERED: fentaNYL PF VIAL 100 MCG/2 ML VIAL IV ONE (13:30)
[2017-05-06] MEDS ORDERED: ALTEPLASE 2MG VIAL 10 MG in IV NORMAL SALINE 100ML 100 ML IV ONE (13:30)
[2017-05-06] MEDS ORDERED: MIDAZOLAM HCL/PF 2 MG/2 ML VIAL. IV ONE (13:30)
[2017-05-06] MEDS ORDERED: CONTRAST GIVEN MC PRN (13:30)
[2017-05-06] MEDS ORDERED: IODIXANOL 320 MG/ML 100 ML VIAL. IART ONE (13:30)
[2017-05-06] MEDS ORDERED: HEPARIN for IV BOLUS 10,000 UNIT/10 ML VIAL. IV ONE (14:45)
[2017-05-06 14:48] VITALS: BP 176/78
--- NOTE | 2017-05-06 15:11 | RAD ---
05/06/2017 1.Left upper extremity fistulogram 2. Pharmacomechanical thrombolysis, 3. Angioplasty of outflow stenosis Indication: 71-year-old female with a thrombosed left upper extremity HERO dialysis graft Discussion: The risks and benefits of the procedure were discussed the patient. Informed consent was obtained. The patient was brought to the interventional suite and placed in the supine position. Timeout procedure was performed. The left upper extremity was prepped and draped using sterile barrier technique. Ultrasound evaluation of left upper extremity graft demonstrates complete thrombosis. 1% lidocaine without epinephrine was administered for local anesthesia. The graft was accessed using a micropuncture needle. A vascular sheath was placed. A Glidewire and angled Marion catheter were advanced centrally into the right atrium. Pullback venogram demonstrated thrombosis of the majority of the left extending into the central portions. Pharmacochemical thrombolysis was performed using 8 mg of TPA and AngioJet catheter. After a 20 minute intubation time, rheolytic thrombectomy was performed. This yielded excellent removal of essentially all clot from the graft. There was found to be an underlying stenosis in the mid arm which was successfully treated with balloon angioplasty using a 7 mm x 8 cm balloon. Angiograms of the arterial anastomosis were unremarkable. Following treatment brisk flow through the graft was noted. Purse string suture was placed in the sheath removed. Sterile dressing was applied. No immediate complications were identified. Fluoroscopy time 10 minutes Dose area product 62 valentine centimeter squared The procedure was performed under conscious sedation including continuous cardiopulmonary monitoring via sedation nurse. Sedation time: 1 hour Impression: Successful pharmacologic and mechanical thrombolysis of a thrombosed left upper extremity Hero graft with subsequent balloon angioplasty of a outflow stenosis in the mid arm.
[2017-05-06 15:15] VITALS: BP 139/47
--- NOTE | 2017-05-06 16:12 | PDOC2 ---
CONSULT Date of Consult Date of Consult DATE: 05/06/17 TIME: 16:10 Reason for Consult Reason for Consult: ESRD Referring Physician Referring Physician: Identification/Chief Complaint Chief Complaint UNABLE TO HD Problems: History of Present Illness Reason for Visit: THIS IS A 71 YR OLD WITH A THROMBOSED LEFT ARM AV ACCESS. SHE HAS ESRD AND IS ON HD ON TTS. LAST HD WAS SAT. SHE IS DUE TO FOR HD TODAY BUT HER ACCESS WOULD NOT WORK. LABS NOTED AND C/W ESRD Past Medical History Cardiovascular: CAD, HTN, Hyperlipidemia GI: Constipation Heme/Onc: Anemia NOS Musculoskeletal: Weakness Endocrine: Hyperparathyroidism Family History Family History: Hypertension Social History ALCOHOL: none Drugs: None Lives: with Family Current Problem List Problem List Problems Medical Problems: (1) Shunt malfunction Status: Acute Current Medications Current Medications Current Medications Lidocaine/Sodium Bicarbonate (Buffered Lidocaine 1%) 20 ml STK-MED ONCE IJ ; Start 05/06/17 at 13:17; Stop 05/06/17 at 13:18; Status DC Iodixanol (Visipaque 320) 100 ml STK-MED ONCE .ROUTE ; Start 05/06/17 at 13:17 ; Stop 05/06/17 at 13:18; Status DC Heparin Sodium/ Sodium Chloride 1,500 ml @ As Directed STK-MED ONCE .ROUTE ; Start 05/06/17 at 13:18; Stop 05/06/17 at 13:19; Status DC Heparin Sodium/ Sodium Chloride 1,000 unit 1X ONCE IART Last administered on 05/06/17 15:01; Start 05/06/17 at 13:30; Stop 05/06/17 at 13:31; Status DC Lidocaine/Sodium Bicarbonate (Buffered Lidocaine 1%) 20 ml 1X ONCE IJ Last administered on 05/06/17 15:00; Start 05/06/17 at 13:30; Stop 05/06/17 at 13 :31; Status DC Midazolam HCl (Versed) 2 mg 1X ONCE IV Last administered on 05/06/17 15:00; Start 05/06/17 at 13:30; Stop 05/06/17 at 13:31; Status DC Fentanyl Citrate (Fentanyl 2ml Vial) 100 mcg 1X ONCE IV Last administered on 05/06/17 13:30; Start 05/06/17 at 13:30; Stop 05/06/17 at 13:31; Status DC Iodixanol (Visipaque 320) 100 ml 1X ONCE IART Last administered on 05/06/17 14:59; Start 05/06/17 at 13:30; Stop 05/06/17 at 13:31; Status DC Alteplase, Recombinant 10 mg/ Sodium Chloride 100 ml @ 10 mls/hr 1X ONCE IV Last administered on 05/06/17 14:59; Start 05/06/17 at 13:30; Stop 05/06/17 at 23:29 Fentanyl Citrate (Fentanyl 2ml Vial) 100 mcg STK-MED ONCE .ROUTE ; Start at 13:21; Stop 05/06/17 at 13:22; Status DC Info (Do NOT chart on this entry -- for MONITORING) 1 each PRN DAILY PRN MC SEE COMMENTS; Start 05/06/17 at 13:30; Stop 05/08/17 at 13:29 Midazolam HCl (Versed) 2 mg STK-MED ONCE .ROUTE ; Start 05/06/17 at 13:23; Stop 05/06/17 at 13:24; Status DC Heparin Sodium (Porcine) (Heparin Sodium) 10,000 unit STK-MED ONCE .ROUTE ; Start 05/06/17 at 13:23; Stop 05/06/17 at 13:24; Status DC Fentanyl Citrate (Fentanyl 2ml Vial) 100 mcg STK-MED ONCE .ROUTE ; Start at 14:19; Stop 05/06/17 at 14:20; Status DC Midazolam HCl (Versed) 2 mg STK-MED ONCE .ROUTE ; Start 05/06/17 at 14:19; Stop 05/06/17 at 14:20; Status DC Heparin Sodium (Porcine) (Heparin Sodium) 5,000 unit 1X ONCE IV Last administered on 05/06/17 14:59; Start 05/06/17 at 14:45; Stop 05/06/17 at 14 :46; Status DC Active Scripts Active Lantus Solostar (Insulin Glargine,Hum.rec.anlog) 300 Units/3 Ml Insuln.pen 20 Units SQ QHS Reported Vitamin D3 (Cholecalciferol (Vitamin D3)) 2,000 Unit Tab.chew 1,000 Unit PO Ventolin Hfa Inhaler (Albuterol Sulfate) 18 Gm Hfa.aer.ad 2 Puff INH BID Amlodipine Besylate 5 Mg Tablet 5 Mg PO DAILY Nephro-Donovan Tablet (Folic Acid/Vitamin B Comp W-C) 0.8 Mg Tablet 0.8 Mg PO DAILY Sensipar (Cinacalcet Hcl) 30 Mg Tablet 30 Mg PO DAILY Low Dose Aspirin Ec (Aspirin) 81 Mg Tablet.dr 1 Tab PO DAILY Midodrine Hcl 5 Mg Tablet 5 Mg PO PRN PRN Simvastatin 40 Mg Tablet 40 Mg PO HS Levothyroxine Sodium 50 Mcg Tablet 50 Mcg PO DAILY Ranitidine Hcl 300 Mg Capsule 300 Mg PO BID Novolog (Insulin Aspart) 100 Unit/1 Ml Cartridge 10 Unit SQ TIDACHC Allergies Allergies: Coded Allergies: No Known Drug Allergies (Unverified , 05/06/17) ROS General: YES: Fatigue, Appetite PSYCHOLOGICAL ROS: YES: Anxiety Eyes: Yes Decreased vision HEENT: YES: [place] Respiratory: YES: Cough Cardiovascular: yes Edema Gastrointestinal: Yes Constipation Genitourinary: YES Other (ANURIA) Musculoskeletal: Yes Muscular Weakness Neurological: Yes Weakness Skin: Yes Dry Skin Physical Exam General: Alert, Cooperative, No acute distress HEENT: Atraumatic, PERRLA, EOMI Lungs: Clear to auscultation, Normal air movement Heart: Regular rate, Normal S1, Normal S2 Abdomen: Normal bowel sounds, Soft, No tenderness Extremities: No clubbing, Other (NO THRILL OR BRUIT LEFT ARM AV ACCESS) Skin: No rashes Neuro: Normal speech Psych/Mental Status: Mental status NL MUSCULOSKELETAL: No deformity, No swelling Vitals VITALS Vital Signs Date Time Temp Pulse Resp B/P (MAP) Pulse Ox O2 Delivery O2 Flow Rate FiO2 05/06/17 15:15 96.4 60 20 139/47 (77) 98 Room Air 96.4 Labs Labs Laboratory Tests Test 05/06/17 10:15 White Blood Count 7.3 x10^3/uL (4.0-11.0) Red Blood Count 3.11 x10^6/uL (3.50-5.40) Hemoglobin 9.6 g/dL (12.0-15.5) Hematocrit 30.2 % (36.0-47.0) Mean Corpuscular Volume 97 fL (79-100) Mean Corpuscular Hemoglobin 31 pg (25-35) Mean Corpuscular Hemoglobin Concent 32 g/dL (31-37) Red Cell Distribution Width 15.8 % (11.5-14.5) Platelet Count 235 x10^3/uL (140-400) Neutrophils (%) (Auto) 69 % (31-73) Lymphocytes (%) (Auto) 22 % (24-48) Monocytes (%) (Auto) 7 % (0-9) Eosinophils (%) (Auto) 1 % (0-3) Basophils (%) (Auto) 1 % (0-3) Neutrophils # (Auto) 5.0 x10^3uL (1.8-7.7) Lymphocytes # (Auto) 1.6 x10^3/uL (1.0-4.8) Monocytes # (Auto) 0.5 x10^3/uL (0.0-1.1) Eosinophils # (Auto) 0.1 x10^3/uL (0.0-0.7) Basophils # (Auto) 0.1 x10^3/uL (0.0-0.2) Prothrombin Time 14.2 SEC (11.7-14.0) Prothromb Time International Ratio 1.2 (0.8-1.1) Sodium Level 140 mmol/L (136-145) Potassium Level 4.7 mmol/L (3.5-5.1) Chloride Level 105 mmol/L (98-107) Carbon Dioxide Level 19 mmol/L (21-32) Anion Gap 16 (6-14) Blood Urea Nitrogen 53 mg/dL (7-20) Creatinine 10.4 mg/dL (0.6-1.0) Estimated GFR (Cockcroft-Gault) 4.4 Glucose Level 114 mg/dL (70-99) Calcium Level 7.9 mg/dL (8.5-10.1) Laboratory Tests Test 05/06/17 10:15 White Blood Count 7.3 x10^3/uL (4.0-11.0) Red Blood Count 3.11 x10^6/uL (3.50-5.40) Hemoglobin 9.6 g/dL (12.0-15.5) Hematocrit 30.2 % (36.0-47.0) Mean Corpuscular Volume 97 fL (79-100) Mean Corpuscular Hemoglobin 31 pg (25-35) Mean Corpuscular Hemoglobin Concent 32 g/dL (31-37) Red Cell Distribution Width 15.8 % (11.5-14.5) Platelet Count 235 x10^3/uL (140-400) Neutrophils (%) (Auto) 69 % (31-73) Lymphocytes (%) (Auto) 22 % (24-48) Monocytes (%) (Auto) 7 % (0-9) Eosinophils (%) (Auto) 1 % (0-3) Basophils (%) (Auto) 1 % (0-3) Neutrophils # (Auto) 5.0 x10^3uL (1.8-7.7) Lymphocytes # (Auto) 1.6 x10^3/uL (1.0-4.8) Monocytes # (Auto) 0.5 x10^3/uL (0.0-1.1) Eosinophils # (Auto) 0.1 x10^3/uL (0.0-0.7) Basophils # (Auto) 0.1 x10^3/uL (0.0-0.2) Prothrombin Time 14.2 SEC (11.7-14.0) Prothromb Time International Ratio 1.2 (0.8-1.1) Sodium Level 140 mmol/L (136-145) Potassium Level 4.7 mmol/L (3.5-5.1) Chloride Level 105 mmol/L (98-107) Carbon Dioxide Level 19 mmol/L (21-32) Anion Gap 16 (6-14) Blood Urea Nitrogen 53 mg/dL (7-20) Creatinine 10.4 mg/dL (0.6-1.0) Estimated GFR (Cockcroft-Gault) 4.4 Glucose Level 114 mg/dL (70-99) Calcium Level 7.9 mg/dL (8.5-10.1) Assessment/Plan Assessment/Plan IMP ANEMIA ESRD HTN THROMBOSE LEFT ARM AV ACCESS PLAN IR TO PERFORM THROMBECTOMY START [facility] FOR HD TOMOR[facility] AND THEN TTS REECE ANN MD May 06, 2017 16:12
[2017-05-06] MEDS ORDERED: FLUT16SP NS (16:26)
[2017-05-06] MEDS ORDERED: HYDR-2762 PO (16:26)
[2017-05-06] MEDS ORDERED: IBUP-1060 PO (16:26)
[2017-05-06] MEDS ORDERED: SEVE800T9 PO (16:26)
[2017-05-06 19:05] VITALS: BP 123/42
[2017-05-06] MEDS ORDERED: DARBEPOETIN ALFA 60 MCG/0.3 ML DISP.SYRIN. SQ SCH (21:00)
[2017-05-06 23:58] VITALS: BP 147/64
[2017-05-07 03:46] VITALS: BP 125/46
[2017-05-07 07:00] VITALS: BP 123/51
[2017-05-07 08:10] LABS: HEMATOCRIT 31.4 % (36.0-47.0); HEMOGLOBIN 9.7 g/dL (12.0-15.5); RED BLOOD COUNT 3.09 x10^6/uL (3.50-5.40); RED CELL DISTRIBUTION WIDTH 16.2 % (11.5-14.5); WHITE BLOOD COUNT 6.7 x10^3/uL (4.0-11.0)
[2017-05-07 08:19] LABS: CALCIUM 7.7 mg/dL (8.5-10.1); CREATININE 11.9 mg/dL (0.6-1.0); GFR 3.8
[2017-05-07 08:24] LABS: POTASSIUM 5.7 mmol/L (3.5-5.1)
--- NOTE | 2017-05-07 09:51 | PDOC1 ---
History and Physical Date of Admission Date of Admission 05/06/17 Identification/Chief Complaint Chief Complaint Dialisis shunt foung to be occluded yesterday when she went in for routine dialysis and sent to ER and admitted so IR could intervene and now awaiting dialysis Problems: Source Source: Patient History of Present Illness History of Present Illness as above Past Medical History Cardiovascular: CAD, HTN, Hyperlipidemia GI: Constipation Heme/Onc: Anemia NOS Endocrine: Hyperparathyroidism Family History Family History: Hypertension Social History ALCOHOL: none Drugs: None Current Problem List Problem List Problems Medical Problems: (1) Shunt malfunction Status: Acute Current Medications Current Medications Current Medications Medications (Trade) Dose Ordered Sig/Kenney Start Time Stop Time Status Last Admin Dose Admin Alteplase, Recombinant 10 mg/ Sodium Chloride 100 ml @ 10 mls/hr 1X ONCE 05/06/17 13:30 05/06/17 23:29 DC 05/06/17 14:59 10 MLS/HR Darbepoetin Andriy (Aranesp) 60 mcg Tu 05/06/17 21:00 05/06/17 21:02 60 MCG Fentanyl Citrate (Fentanyl 2ml Vial) 100 mcg STK-MED ONCE 05/06/17 14:19 05/06/17 14:20 DC Heparin Sodium (Porcine) (Heparin Sodium) 5,000 unit 1X ONCE 05/06/17 14:45 05/06/17 14:46 DC 05/06/17 14:59 5,000 UNIT Heparin Sodium/ Sodium Chloride 1,000 unit 1X ONCE 05/06/17 13:30 05/06/17 13:31 DC 05/06/17 15:01 1,000 UNIT Info (Do NOT chart on this entry -- for MONITORING) 1 each PRN DAILY PRN 05/06/17 13:30 05/08/17 13:29 Iodixanol (Visipaque 320) 100 ml 1X ONCE 05/06/17 13:30 05/06/17 13:31 DC 05/06/17 14:59 133 ML Lidocaine/Sodium Bicarbonate (Buffered Lidocaine 1%) 20 ml 1X ONCE 05/06/17 13:30 05/06/17 13:31 DC 05/06/17 15:00 2 ML Midazolam HCl (Versed) 2 mg STK-MED ONCE 05/06/17 14:19 05/06/17 14:20 DC Allergies Allergies Allergies Coded Allergies Type Severity Reaction Last Updated Verified No Known Drug Allergies 05/06/17 No ROS Review of System CONSTITUTIONAL: No fever or chills EYES: No recent changes SKIN: rash under left breast she attributes to new soap CARDIOVASCULAR: No chest pain, syncope, palpitations, or edema RESPIRATORY: No SOB or cough GASTROINTESTINAL: No nausea, vomiting or abdominal pain, positive for constipation but she had a BM yesterday NEUROLOGICAL: Positive for headache she attributes to fluorescent lighting ENDOCRINE: No cold or heat intolerance GENITOURINARY: No urgency or frequency of urination MUSCULOSKELETAL: Wheelchair dependent PSYCHIATRIC: No acute anxiety or depression Physical Exam Physical Exam GEN.: No apparent distress. Alert and oriented. HEENT: Head is normocephalic, atraumatic NECK: Supple. LUNGS: Clear to auscultation. HEART: RRR, S1, S2 present. Peripheral pulses intact ABDOMEN: Obese, soft, nontender. Positive bowel sounds. EXTREMITIES: Without any cyanosis. Shunt left upper arm with palpable thrill NEUROLOGIC: Normal speech, normal tone PSYCHIATRIC: Normal affect, normal mood. SKIN: No ulcerations, several vesicles under left breast but not typical of shingles and no erythematous base or other lesions of that dermatome Vitals Vitals Vital Signs Date Time Temp Pulse Resp B/P (MAP) Pulse Ox O2 Delivery O2 Flow Rate FiO2 05/07/17 07:00 98.3 75 17 123/51 (75) 98 Room Air 98.3 Labs Labs Laboratory Tests Test 05/06/17 10:15 05/06/17 20:55 05/07/17 07:31 05/07/17 08:13 White Blood Count 7.3 x10^3/uL (4.0-11.0) 6.7 x10^3/uL (4.0-11.0) Red Blood Count 3.11 x10^6/uL (3.50-5.40) 3.09 x10^6/uL (3.50-5.40) Hemoglobin 9.6 g/dL (12.0-15.5) 9.7 g/dL (12.0-15.5) Hematocrit 30.2 % (36.0-47.0) 31.4 % (36.0-47.0) Mean Corpuscular Volume 97 fL (79-100) 101 fL (79-100) Mean Corpuscular Hemoglobin 31 pg (25-35) 31 pg (25-35) Mean Corpuscular Hemoglobin Concent 32 g/dL (31-37) 31 g/dL (31-37) Red Cell Distribution Width 15.8 % (11.5-14.5) 16.2 % (11.5-14.5) Platelet Count 235 x10^3/uL (140-400) 214 x10^3/uL (140-400) Neutrophils (%) (Auto) 69 % (31-73) Lymphocytes (%) (Auto) 22 % (24-48) Monocytes (%) (Auto) 7 % (0-9) Eosinophils (%) (Auto) 1 % (0-3) Basophils (%) (Auto) 1 % (0-3) Neutrophils # (Auto) 5.0 x10^3uL (1.8-7.7) Lymphocytes # (Auto) 1.6 x10^3/uL (1.0-4.8) Monocytes # (Auto) 0.5 x10^3/uL (0.0-1.1) Eosinophils # (Auto) 0.1 x10^3/uL (0.0-0.7) Basophils # (Auto) 0.1 x10^3/uL (0.0-0.2) Prothrombin Time 14.2 SEC (11.7-14.0) Prothromb Time International Ratio 1.2 (0.8-1.1) Sodium Level 140 mmol/L (136-145) 139 mmol/L (136-145) Potassium Level 4.7 mmol/L (3.5-5.1) 5.7 mmol/L (3.5-5.1) Chloride Level 105 mmol/L (98-107) 104 mmol/L (98-107) Carbon Dioxide Level 19 mmol/L (21-32) 19 mmol/L (21-32) Anion Gap 16 (6-14) 16 (6-14) Blood Urea Nitrogen 53 mg/dL (7-20) 64 mg/dL (7-20) Creatinine 10.4 mg/dL (0.6-1.0) 11.9 mg/dL (0.6-1.0) Estimated GFR (Cockcroft-Gault) 4.4 3.8 Glucose Level 114 mg/dL (70-99) 105 mg/dL (70-99) Calcium Level 7.9 mg/dL (8.5-10.1) 7.7 mg/dL (8.5-10.1) Glucose (Fingerstick) 173 mg/dL (70-99) 89 mg/dL (70-99) Laboratory Tests Test 05/06/17 10:15 05/06/17 20:55 05/07/17 07:31 05/07/17 08:13 White Blood Count 7.3 x10^3/uL (4.0-11.0) 6.7 x10^3/uL (4.0-11.0) Red Blood Count 3.11 x10^6/uL (3.50-5.40) 3.09 x10^6/uL (3.50-5.40) Hemoglobin 9.6 g/dL (12.0-15.5) 9.7 g/dL (12.0-15.5) Hematocrit 30.2 % (36.0-47.0) 31.4 % (36.0-47.0) Mean Corpuscular Volume 97 fL (79-100) 101 fL (79-100) Mean Corpuscular Hemoglobin 31 pg (25-35) 31 pg (25-35) Mean Corpuscular Hemoglobin Concent 32 g/dL (31-37) 31 g/dL (31-37) Red Cell Distribution Width 15.8 % (11.5-14.5) 16.2 % (11.5-14.5) Platelet Count 235 x10^3/uL (140-400) 214 x10^3/uL (140-400) Neutrophils (%) (Auto) 69 % (31-73) Lymphocytes (%) (Auto) 22 % (24-48) Monocytes (%) (Auto) 7 % (0-9) Eosinophils (%) (Auto) 1 % (0-3) Basophils (%) (Auto) 1 % (0-3) Neutrophils # (Auto) 5.0 x10^3uL (1.8-7.7) Lymphocytes # (Auto) 1.6 x10^3/uL (1.0-4.8) Monocytes # (Auto) 0.5 x10^3/uL (0.0-1.1) Eosinophils # (Auto) 0.1 x10^3/uL (0.0-0.7) Basophils # (Auto) 0.1 x10^3/uL (0.0-0.2) Prothrombin Time 14.2 SEC (11.7-14.0) Prothromb Time International Ratio 1.2 (0.8-1.1) Sodium Level 140 mmol/L (136-145) 139 mmol/L (136-145) Potassium Level 4.7 mmol/L (3.5-5.1) 5.7 mmol/L (3.5-5.1) Chloride Level 105 mmol/L (98-107) 104 mmol/L (98-107) Carbon Dioxide Level 19 mmol/L (21-32) 19 mmol/L (21-32) Anion Gap 16 (6-14) 16 (6-14) Blood Urea Nitrogen 53 mg/dL (7-20) 64 mg/dL (7-20) Creatinine 10.4 mg/dL (0.6-1.0) 11.9 mg/dL (0.6-1.0) Estimated GFR (Cockcroft-Gault) 4.4 3.8 Glucose Level 114 mg/dL (70-99) 105 mg/dL (70-99) Calcium Level 7.9 mg/dL (8.5-10.1) 7.7 mg/dL (8.5-10.1) Glucose (Fingerstick) 173 mg/dL (70-99) 89 mg/dL (70-99) VTE Prophylaxis Ordered VTE Prophylaxis Devices: No VTE Pharmacological Prophylaxi: Yes Assessment/Plan Assessment/Plan Dialysis shunt occlusion. Admitted for IR intervention which was accomplished late yesterday and she is awaiting dialysis today then expect discharge. Stable chronic medical issues, rash under left breast not typical of shingles Joanne HUFF MD May 07, 2017 09:51
[2017-05-07] MEDS ORDERED: ALBUTEROL SULFATE 2.5 MG/3 ML NEBU. NEB PRN (10:00)
[2017-05-07] MEDS ORDERED: amLODIPine BESYLATE 5 MG TABLET PO SCH (10:00)
[2017-05-07] MEDS ORDERED: HYDROcodone/APAP 7.5/325MG 1 TAB TABLET PO PRN (10:00)
[2017-05-07] MEDS ORDERED: MIDODRINE 5 MG TABLET PO PRN (10:00)
[2017-05-07] MEDS ORDERED: ASPIRIN ENTERIC COATED 81 MG TABLET.DR. PO SCH (10:30)
[2017-05-07] MEDS ORDERED: FOLIC/VIT B COMP W-C (RENAL) TABLET. PO SCH (10:30)
[2017-05-07] MEDS ORDERED: FLUTICASONE 50MCG/NASAL SPRAY 16GM BOTTLE. NS SCH (10:30)
[2017-05-07] MEDS ORDERED: CINACALCET HCL 30 MG TABLET PO SCH (10:30)
[2017-05-07] MEDS ORDERED: LEVOTHYROXINE 50 MCG TABLET PO SCH (10:30)
[2017-05-07] MEDS: SEVELAMER CARBONATE 800 MG TABLET. PO SCH ×2 (10:58→17:32)
[2017-05-07 11:00] VITALS: BP 141/47
[2017-05-07] MEDS: INSULIN ASPART 300 UNITS/3 ML INSULN.PEN SQ SCH ×3 (11:30→21:33)
--- NOTE | 2017-05-07 12:03 | PDOC ---
Renal-Progress Notes Subjective Notes Notes NONE History of Present Illness Hx of present illness STABLE Vitals Vitals Vital Signs Date Time Temp Pulse Resp B/P (MAP) Pulse Ox O2 Delivery O2 Flow Rate FiO2 05/07/17 11:00 98.3 74 17 141/47 (78) 98 Room Air 98.3 Weight Weight [ ] Labs Labs Laboratory Tests Test 05/06/17 20:55 05/07/17 07:31 05/07/17 08:13 05/07/17 11:48 Glucose (Fingerstick) 173 mg/dL (70-99) 89 mg/dL (70-99) 117 mg/dL (70-99) White Blood Count 6.7 x10^3/uL (4.0-11.0) Red Blood Count 3.09 x10^6/uL (3.50-5.40) Hemoglobin 9.7 g/dL (12.0-15.5) Hematocrit 31.4 % (36.0-47.0) Mean Corpuscular Volume 101 fL (79-100) Mean Corpuscular Hemoglobin 31 pg (25-35) Mean Corpuscular Hemoglobin Concent 31 g/dL (31-37) Red Cell Distribution Width 16.2 % (11.5-14.5) Platelet Count 214 x10^3/uL (140-400) Sodium Level 139 mmol/L (136-145) Potassium Level 5.7 mmol/L (3.5-5.1) Chloride Level 104 mmol/L (98-107) Carbon Dioxide Level 19 mmol/L (21-32) Anion Gap 16 (6-14) Blood Urea Nitrogen 64 mg/dL (7-20) Creatinine 11.9 mg/dL (0.6-1.0) Estimated GFR (Cockcroft-Gault) 3.8 Glucose Level 105 mg/dL (70-99) Calcium Level 7.7 mg/dL (8.5-10.1) Review of Systems Constitutional: yes: weakness, alert, oriented Ears/Nose/Throat: Yes: no symptom reported Pulmonary: Yes dyspnea Cardiovascular: Yes no symptom reported Gastrointestional: Yes: constipation Musculoskeletal: Yes: no symptom reported Skin: Yes no symptom reported Psychiatric/Neurological: Yes: no symptom reported Endocrine: Yes: no symptom reported Physical Exam General Appearance: no apparent distress Respiratory: decreased breath sounds Heart: S1S2 Abdomen: soft, bowel sounds present Genitourinary: bladder flat Extremities: pulses present Neurology: alert, oriented Musculoskeletal: Weakness Assessment Assessment IMP S/P LEFT ARM AVG THROMBECTOMY ANEMIA ESRD HYPERVOLEMIA PLAN HD TODAY UF TO REECE OSBORN MD May 07, 2017 12:03
[2017-05-07] MEDS ORDERED: IV NORMAL SALINE 1000ML BAG 1,000 ML IV PRN (15:09)
[2017-05-07] MEDS ORDERED: DIALYSIS PATIENT. MC PRN (15:15)
--- NOTE | 2017-05-07 17:55 | PDOC3 ---
Discharge Summary [facility] Date of Admission: May 06, 2017 Discharge Date: May 07, 2017 Admitting Diagnosis dialysis shunt occlusion, ESRD on dialysis Problems: Final Diagnosis Problems Medical Problems: (1) Shunt malfunction Status: Acute CONSULTS Moe - renal Interventional Radiology Procedures thrombectomy, balloon angioplasty Brief Hospital Course Ms. Wilkerson is a 71 old who presented with to dialysis but was found to have a thrombosed shunt and admitted . She successfully had a thrombectomy of the shunt by IR and needed a balloon angioplasty of the distal portion and was able to dialyze today without complication. She did become hyperkalemic today prior to dialysis. She received Aranesp for her chronic anemia Patient History: Unknown Problems: Disposition home to continue routine home meds and routine dialysis Diet renal Scheduled Albuterol Sulfate (Ventolin Hfa Inhaler), 2 PUFF INH BID, (Reported) Amlodipine Besylate (Amlodipine Besylate), 5 MG PO DAILY, (Reported) Aspirin (Low Dose Aspirin Ec), 1 TAB PO DAILY, (Reported) Cinacalcet Hcl (Sensipar), 30 MG PO DAILY, (Reported) Fluticasone Propionate (Fluticasone Propionate Nasal Whitlash), 2 SPRAY NS DAILY, ( Reported) Folic Acid/Vitamin B Comp W-C (Nephro-Donovan Tablet), 0.8 MG PO DAILY, (Reported) Insulin Aspart (Novolog), 10 UNIT SQ TIDACHC, (Reported) Insulin Glargine,Hum.rec.anlog (Lantus Solostar), 20 UNITS SQ QHS Levothyroxine Sodium (Levothyroxine Sodium), 50 MCG PO DAILY, (Reported) Ranitidine Hcl (Ranitidine Hcl), 300 MG PO BID, (Reported) Sevelamer Carbonate (Renvela), 800 MG PO TIDWMEALS, (Reported) Simvastatin (Simvastatin), 40 MG PO HS, (Reported) Scheduled PRN Hydrocodone Bit/Acetaminophen (Hydrocodone-Apap 7.5-325 ), 1 TAB PO BID PRN for PAIN, (Reported) Ibuprofen (Ibuprofen), 800 MG PO PRN Q6HRS PRN for INFLAMMATION, (Reported) Midodrine Hcl (Midodrine Hcl), 5 MG PO PRN PRN for PER PROTOCOL, (Reported) Miscellaneous Medications Cholecalciferol (Vitamin D3) (Vitamin D3), 1,000 UNIT PO, (Reported) Discontinued Medications Hydrocodone Bit/Acetaminophen (Hydrocodone-Apap 5-325 ), 1-2 TAB PO PRN Q6HRS PRN for PAIN Discontinued Reason: not taking Hydrocodone/Apap 5-325 ([place] 5-325 Tablet), 1-2 EACH PO PRN Q6HRS PRN for PAIN Discontinued Reason: not taking Lubiprostone (Amitiza), 1 CAP PO BID, (Reported) Discontinued Reason: not taking Follow Up 1-2 weeks Joanne HUFF MD May 07, 2017 17:55
[2017-05-07 19:55] VITALS: BP 154/45
[2017-05-07] MEDS ORDERED: INSULIN DETEMIR 300 UNITS/3 ML INSULN.PEN. SQ SCH (21:00)
[2017-05-07] MEDS ORDERED: ATORVASTATIN CALCIUM 20 MG TABLET PO SCH (21:00)
== END 2017-05-07 23:00 | disposition home or self-care (01) | DRG 252 ==
LOC: ER 08:59 → 6 SOUTH 09:55
PROVIDERS: ADMIT Family Medicine; ATTEND Family Medicine
PROC: 037Y3ZZ Dilation of Upper Artery, Percutaneous Approach (ICD-10-PCS; principal; 2017-05-06)
PROC: 03CY3ZZ Extirpation of Matter from Upper Artery, Percutaneous Approach (ICD-10-PCS; 2017-05-06)
PROC: B51W1ZZ Fluoroscopy of Dialysis Shunt/Fistula using Low Osmolar Contrast (ICD-10-PCS; 2017-05-06)
PROC: 3E03317 Introduction of Other Thrombolytic into Peripheral Vein, Percutaneous Approach (ICD-10-PCS; 2017-05-06)
PROC: 5A1D70Z Performance of Urinary Filtration, Intermittent, Less than 6 Hours Per Day (ICD-10-PCS; 2017-05-06)
DX: T82.868A Thrombosis due to vascular prosthetic devices, implants and grafts, initial encounter (principal); N18.6 End stage renal disease; E11.22 Type 2 diabetes mellitus with diabetic chronic kidney disease; E87.5 Hyperkalemia; I12.0 Hypertensive chronic kidney disease with stage 5 chronic kidney disease or end stage renal disease; Y65.8 Other specified misadventures during surgical and medical care; E87.70 Fluid overload, unspecified; I25.10 Atherosclerotic heart disease of native coronary artery without angina pectoris; E78.5 Hyperlipidemia, unspecified; E78.00 Pure hypercholesterolemia, unspecified; D64.9 Anemia, unspecified; Z82.49 Family history of ischemic heart disease and other diseases of the circulatory system; Z85.42 Personal history of malignant neoplasm of other parts of uterus; Z90.710 Acquired absence of both cervix and uterus; Z99.2 Dependence on renal dialysis; E21.3 Hyperparathyroidism, unspecified; Y92.89 Other specified places as the place of occurrence of the external cause
CPT/HCPCS: 36415; 36905; 76937; 80048; 82962; 85025; 85027; 85610; 99152; 99153; A4215; C1713; C1725; C1757; C1892; C1894; J0881; J1644; J1815; J2250; J2997; J3010; 99285-25

== ENCOUNTER → 2017-05-22 | Outpatient (CLI) | payer MEDICARE, OTHER ==
[~2017-05-22] VITALS: Ht 167.6 cm; Wt 136.1 kg
[~2017-05-22] MED LIST changes: +ALTEPLASE 10 MG in IV NORMAL SALINE 100ML 100 ML IV ONE; +ALTEPLASE 2 MG VIAL INT CAT ONE; +AMLO5TAB2 PO; +CHOL200078 PO; +CONTRAST GIVEN MC PRN; +HEPARIN for IV BOLUS 10,000 UNIT/10 ML VIAL. IV ONE; +HEPARIN for IV BOLUS 10,000 UNIT/10 ML VIAL. ONE; +HYDR-2762 PO; +IBUP-1060 PO; +IODIXANOL 320 MG/ML 100 ML VIAL. IART ONE; +IODIXANOL 320 MG/ML 100 ML VIAL. ONE; +IODIXANOL 320MG/ML 50ML VIAL. ONE; +LIDOCAINE 1% / SOD BICARB 8.4% 20 ML VIAL. IJ ONE; +MIDAZOLAM HCL/PF 5 MG/5 ML VIAL. IV ONE; +VENTOLIN HFA18 GM INH; +fentaNYL PF VIAL 250 MCG/5 ML VIAL IV ONE
[2017-05-22 07:57] VITALS: BP 105/55
[2017-05-22 08:02] VITALS: BP 105/55
[2017-05-22 09:27] LABS: BASO % 1 % (0-3); EOS % 2 % (0-3); HEMATOCRIT 29.5 % (36.0-47.0); HEMOGLOBIN 9.3 g/dL (12.0-15.5); LYMPH # 1.6 x10^3/uL (1.0-4.8); LYMPH % 25 % (24-48); MEAN CORPUSCULAR HEMOGLOBIN 31 pg (25-35); MEAN CORPUSCULAR HGB CONC 32 g/dL (31-37); MEAN CORPUSCULAR VOLUME 98 fL (79-100); MONO % 7 % (0-9); NEUT % 67 % (31-73); PLATELET COUNT 207 x10^3/uL (140-400); RED CELL DISTRIBUTION WIDTH 15.3 % (11.5-14.5); WHITE BLOOD COUNT 6.3 x10^3/uL (4.0-11.0)
[2017-05-22 09:31] LABS: CALCIUM 8.2 mg/dL (8.5-10.1); CREATININE 14.1 mg/dL (0.6-1.0); GFR 3.1; POTASSIUM 5.8 mmol/L (3.5-5.1)
[2017-05-22 09:34] LABS: INR 1.2 (0.8-1.1); PROTHROMBIN TIME PATIENT 14.3 SEC (11.7-14.0)
[2017-05-22 12:48] VITALS: BP 173/72
[2017-05-22 13:00] VITALS: BP 144/64
[2017-05-22 13:16] VITALS: BP 138/62
[2017-05-22 13:31] VITALS: BP 160/77
--- NOTE | 2017-05-23 08:15 | RAD ---
05/22/2017 1.Left upper extremity fistulogram 2. Pharmacomechanical thrombolysis 3. Angioplasty of outflow vein stenosis Indication: 71-year-old female with a thrombosed left upper extremity HERO dialysis graft Discussion: The risks and benefits of the procedure were discussed the patient. Informed consent was obtained. The patient was brought to the interventional suite and placed in the supine position. Timeout procedure was performed. The left upper extremity was prepped and draped using sterile barrier technique. Ultrasound evaluation of left upper extremity graft demonstrates complete thrombosis. 1% lidocaine without epinephrine was administered for local anesthesia. The graft was accessed using a micropuncture needle. A vascular sheath was placed. A Glidewire and angled Marion catheter were advanced centrally into the right atrium. Pullback venogram demonstrated thrombosis of the majority of the left extending into the central portions. Pharmacochemical thrombolysis was performed using 10 mg of TPA and AngioJet catheter. After a 20 minute intubation time, rheolytic thrombectomy was performed. This yielded excellent removal of essentially all clot from the graft. There is a recurrent underlying stenosis in the mid arm which was successfully treated with balloon angioplasty using a 7 mm x 8 cm balloon. Sluggish flow persisted. The graft was accessed directed towards the arterial anastomosis. 5 mm balloon was partially inflated and used to probably anastomotic plug. Angioplasty of the proximal graft was then performed with 7 mm balloon. A mild narrowing is seen in the proximal most outflow graft. This revealed an significantly improved morphology and flow through the graft. Central venograms were performed demonstrating no residual clot or stenosis. Following treatment brisk flow through the graft was noted. And pursestring sutures were placed and sheath removed to achieve hemostasis. Sterile dressings were applied. No immediate complications were identified. The procedure was performed under conscious sedation including continuous cardiopulmonary monitoring via sedation nurse. Sedation time: 1 hour FLUORO TIME: 10.5 MIN DOSE: 55 Gycm2 Impression: Successful pharmacologic and mechanical thrombolysis of a thrombosed left upper extremity Hero graft with subsequent balloon angioplasty of a multiple outflow stenoses as described
== END | disposition home or self-care (01) ==
LOC: INTRAD 07:06
PROVIDERS: ATTEND Internal Medicine Nephrology
DX: T82.868A Thrombosis due to vascular prosthetic devices, implants and grafts, initial encounter (principal); Y83.8 Other surgical procedures as the cause of abnormal reaction of the patient, or of later complication, without mention of misadventure at the time of the procedure; Y92.9 Unspecified place or not applicable; E78.00 Pure hypercholesterolemia, unspecified; I10 Essential (primary) hypertension; E66.9 Obesity, unspecified; K21.9 Gastro-esophageal reflux disease without esophagitis; Z90.710 Acquired absence of both cervix and uterus; E11.9 Type 2 diabetes mellitus without complications; Z85.42 Personal history of malignant neoplasm of other parts of uterus; Z79.01 Long term (current) use of anticoagulants
CPT/HCPCS: 36415; 36905; 76937; 80048; 85025; 85610; 99152; 99153; A4215; C1757; C1758; C1769; C1892; C1894; J1644; J2250; J2997; J3010; 36901

== ENCOUNTER 2017-08-14 10:02 | Outpatient (CLI) | payer MEDICARE, OTHER ==
[2017-08-14 10:37] LABS: ADD MAN DIFF? NO
[2017-08-14 10:45] LABS: BASO % 1 % (0-3); EOS % 1 % (0-3); HEMATOCRIT 37.6 % (36.0-47.0); HEMOGLOBIN 11.9 g/dL (12.0-15.5); LYMPH # 1.3 x10^3/uL (1.0-4.8); LYMPH % 25 % (24-48); MEAN CORPUSCULAR HEMOGLOBIN 31 pg (25-35); MEAN CORPUSCULAR HGB CONC 32 g/dL (31-37); MEAN CORPUSCULAR VOLUME 97 fL (79-100); MONO # 0.4 x10^3/uL (0.0-1.1); MONO % 8 % (0-9); NEUT # 3.3 x10^3uL (1.8-7.7); NEUT % 65 % (31-73); PLATELET COUNT 222 x10^3/uL (140-400); RED BLOOD COUNT 3.89 x10^6/uL (3.50-5.40); RED CELL DISTRIBUTION WIDTH 16.3 % (11.5-14.5); WHITE BLOOD COUNT 5.1 x10^3/uL (4.0-11.0)
[2017-08-14 11:14] LABS: INR 1.1 (0.8-1.1); PROTHROMBIN TIME PATIENT 13.5 SEC (11.7-14.0)
[2017-08-14] MEDS ORDERED: IODIXANOL 320 MG/ML 100 ML VIAL. ×2 (12:30)
[2017-08-14] MEDS ORDERED: LIDOCAINE WITH 8.4% SOD BICARB 3 ML DISP.SYRIN. ×2 (12:30)
[2017-08-14] MEDS ORDERED: MIDAZOLAM HCL/PF 2 MG/2 ML VIAL. ×4 (12:45→13:28)
[2017-08-14] MEDS ORDERED: fentaNYL PF VIAL 100 MCG/2 ML VIAL ×6 (12:45→14:01)
[2017-08-14] MEDS: ALTEPLASE 2MG VIAL 10 MG in IV NORMAL SALINE 100ML 100 ML IV (12:45)
[2017-08-14] MEDS ORDERED: HEPARIN for IV BOLUS 10,000 UNIT/10 ML VIAL. ×2 (12:46)
[2017-08-14] MEDS ORDERED: IOHEXOL 300 MG/ML 100ML VIAL. IART ×2 (13:15)
[2017-08-14] MEDS ORDERED: CONTRAST GIVEN MC ×2 (13:30)
[2017-08-14] MEDS: LIDOCAINE WITH 8.4% SOD BICARB 3 ML DISP.SYRIN. IJ ×2 (14:33)
[2017-08-14] MEDS: fentaNYL PF VIAL 100 MCG/2 ML VIAL IV ×2 (14:34)
[2017-08-14] MEDS: HEPARIN for IV BOLUS 10,000 UNIT/10 ML VIAL. IV ×2 (14:34)
[2017-08-14] MEDS: MIDAZOLAM HCL/PF 2 MG/2 ML VIAL. IV ×2 (14:36)
[2017-08-14] MEDS: IODIXANOL 320 MG/ML 100 ML VIAL. IV ×2 (14:47)
[2017-08-14] MEDS ORDERED: ASPIRIN 325 MG TABLET ×2 (14:48)
[2017-08-14] MEDS: ASPIRIN 325 MG TABLET PO ×2 (14:50)
== END 2017-08-14 15:31 | disposition home or self-care (01) ==
LOC: INTRAD 10:02
DX: T85.868A Thrombosis due to other internal prosthetic devices, implants and grafts, initial encounter (principal); Y83.2 Surgical operation with anastomosis, bypass or graft as the cause of abnormal reaction of the patient, or of later complication, without mention of misadventure at the time of the procedure; Y92.89 Other specified places as the place of occurrence of the external cause; E07.9 Disorder of thyroid, unspecified; E78.00 Pure hypercholesterolemia, unspecified; I12.0 Hypertensive chronic kidney disease with stage 5 chronic kidney disease or end stage renal disease; E11.22 Type 2 diabetes mellitus with diabetic chronic kidney disease; N18.6 End stage renal disease; J45.909 Unspecified asthma, uncomplicated; K21.9 Gastro-esophageal reflux disease without esophagitis; E66.9 Obesity, unspecified; Z68.42 Body mass index [BMI] 45.0-49.9, adult; Z90.710 Acquired absence of both cervix and uterus; Z98.890 Other specified postprocedural states; Z87.39 Personal history of other diseases of the musculoskeletal system and connective tissue; Z86.39 Personal history of other endocrine, nutritional and metabolic disease; Z72.89 Other problems related to lifestyle; Z86.14 Personal history of Methicillin resistant Staphylococcus aureus infection; Z99.2 Dependence on renal dialysis
CPT/HCPCS: 36415; 36901; 36905; 76937; 85025; 85610; 99152; 99153; A4215; C1757; C1758; C1769; C1892; C1894; J1644; J2250; J2997; J3010

== ENCOUNTER 2018-03-13 06:13 | Outpatient (CLI) | payer MEDICARE, OTHER ==
[~2018-03-13] VITALS: Ht 167.6 cm; Wt 122.9 kg
[2018-03-13] VITALS (12 sets, daily range): BP systolic 105–174; BP diastolic 45–76
[~2018-03-13 06:13] MED LIST changes: -ALTEPLASE 10 MG in IV NORMAL SALINE 100ML 100 ML IV ONE; -ALTEPLASE 2 MG VIAL INT CAT ONE; -CONTRAST GIVEN MC PRN; -HEPARIN for IV BOLUS 10,000 UNIT/10 ML VIAL. IV ONE; -HEPARIN for IV BOLUS 10,000 UNIT/10 ML VIAL. ONE; -IODIXANOL 320 MG/ML 100 ML VIAL. IART ONE; -IODIXANOL 320 MG/ML 100 ML VIAL. ONE; -IODIXANOL 320MG/ML 50ML VIAL. ONE; -LIDOCAINE 1% / SOD BICARB 8.4% 20 ML VIAL. IJ ONE; -MIDAZOLAM HCL/PF 5 MG/5 ML VIAL. IV ONE; +WARF3TAB50 PO; -WARF3TAB7 PO; -fentaNYL PF VIAL 250 MCG/5 ML VIAL IV ONE
[2018-03-13] MEDS ORDERED: LIDOCAINE 1% PF 30 ML VIAL. ONE (06:26)
[2018-03-13] MEDS ORDERED: IODIXANOL 320 MG/ML 100 ML VIAL. ONE (06:26)
[2018-03-13] MEDS ORDERED: WARF7.5T48 PO (07:31)
[2018-03-13 07:56] LABS: HEMATOCRIT 38.2 % (36.0-47.0); PROTHROMBIN TIME PATIENT 21.6 SEC (11.7-14.0); RED BLOOD COUNT 4.17 x10^6/uL (3.50-5.40); RED CELL DISTRIBUTION WIDTH 18.5 % (11.5-14.5)
[2018-03-13] MEDS ORDERED: fentaNYL PF VIAL 100 MCG/2 ML VIAL ONE (08:02)
[2018-03-13] MEDS ORDERED: MIDAZOLAM HCL/PF 2 MG/2 ML VIAL. ONE (08:03)
[2018-03-13 08:06] LABS: CALCIUM 9.4 mg/dL (8.5-10.1); CREATININE 5.4 mg/dL (0.6-1.0); GFR 9.4; POTASSIUM 4.6 mmol/L (3.5-5.1)
[2018-03-13] MEDS ORDERED: LIDOCAINE 1% PF 30 ML VIAL. INJ ONE (08:45)
[2018-03-13] MEDS ORDERED: IODIXANOL 320 MG/ML 100 ML VIAL. IART ONE (08:45)
[2018-03-13] MEDS ORDERED: MIDAZOLAM HCL/PF 2 MG/2 ML VIAL. IV ONE (08:45)
[2018-03-13] MEDS ORDERED: fentaNYL PF VIAL 100 MCG/2 ML VIAL IV ONE (08:45)
[2018-03-13] MEDS ORDERED: IV 1/2 NORMAL SALINE 1,000 ML IV SCH (08:46)
--- NOTE | 2018-03-13 08:46 | PDOC ---
MODERATE SEDATION ASSESSMENT RISKS/ALTERNATIVES Risks/Alternatives Risks and alternatives of this type of sedation and procedure discussed with: RISK/ALTERNATIVES: Patient H & P ON CHART H & P H & P on chart and reviewed for co-morbid conditions and appropriate labs. H&P ON CHART: Yes STATUS PREG STATUS ASSESSED: N/A MEDS/ALLERGIES REVIEWED Meds/Allergies Reviewed Medications and Allergies including time and route of recently administered narcotics and sedatives. MEDS/ALLERGIES REVIEWED: Yes ASA RATING ASA RATING: II AIRWAY ASSESSMENT Airway Assessment Airway patency, oral function limitations, presence of caps, crowns, dentures, partials, and ability to extend neck assessed. AIRWAY ASSESSMENT: Yes MALLAMPATI SCORE MALLAMPATI SCORE: II PRE-SEDATION ASSESSMENT PRE-SEDATION ASSESSMENT: Yes LEXUS THORNE MD Mar 13, 2018 08:46
[2018-03-13] MEDS ORDERED: NITROGLYCERIN SUBLINGUAL 0.4 MG BOTTLE OF 25. SL PRN (09:00)
--- NOTE | 2018-03-13 09:05 | CARD ---
MR#: [id number] Date of Study: 03/13/2018 Ordering Physician: LEXUS THORNE Referring Physician: LEXUS THORNE Tech: RT Axel (R) APPROVED REPORT Patient StatusOUT-PATIENT Commercial Account Officer: Mary Bello RT (R) Procedure(s) performed: Aortogram with bilateral lower extremity runoff Moderate sedation: 39 minutes INDICATION FOR PROCEDURE The indication(s) include : Nonhealing wound left foot and abnormal arterial duplex scan. PROCEDURE NARRATIVE After explaining the risks, benefits and alternative options, informed consent was obtained from iris ent. Patient was brought to the cardiac Multi Share Program Coordinator and her right groin was prepped and draped in the us ual fashion. 20 mL of 2% lidocaine was infiltrated into the skin and subcutaneous tissues for local a nesthesia. Arterial access was obtained in the right common femoral artery and 5 Libyan sheath was in serted. 5 Libyan pigtail catheter was used to perform aortogram. The aortic favio was crossed using a 5 Libyan crossover catheter which was then exchanged to a 4 [place]yan angled glide catheter and with i ts tip positioned in the left common femoral artery selective left lower extremity angiography was pe rformed. Contrast injections were performed through the sheath in the right groin for right lower ext remity angiography. Patient tolerated the procedure well. Hemostasis was achieved using Angio-Seal. T here were no immediate complications. The following findings were noted. FINDINGS 1. No significant stenosis involving the distal descending aorta, bilateral common and external franklin c arteries. 2. No significant stenosis involving bilateral common femoral arteries. The right superficial femora l artery showed 30% stenosis in the midsegment. The left superficial femoral artery showed 40% stenos is in the distal segment. 3. No significant stenosis involving bilateral popliteal arteries. There is three vessel runoff belo w the knee bilaterally. There is moderate diffuse disease involving distal segment of the left blast furnace keeper ior tibial artery and also the mid to distal segments of the right posterior tibial and peroneal sourav jeffry. No critical lesions were noted. Conclusion No significant peripheral artery stenosis Signed by : Lexus Thorne, Electronically Approved : 03/13/2018 09:05:01
--- NOTE | 2018-03-13 12:05 | CARD ---
MR#: [id number] Date of Study: 03/13/2018 Ordering Physician: LEXUS THORNE, Referring Physician: LEXUS THORNE Tech: KRISTINE Rojas APPROVED REPORT EXAM: Two-dimensional and M-mode echocardiogram with Doppler and color Doppler. Other Information Quality : FairHR: 76bpm INDICATION Peripheral Edema 2D DIMENSIONS RVDd3.3 (2.9-3.5cm)Left Atrium(2D)4.0 (1.6-4.0cm) IVSd1.0 (0.7-1.1cm)Aortic Root(2D)3.3 (2.0-3.7cm) LVDd5.4 (3.9-5.9cm)LVOT Diameter2.2 (1.8-2.4cm) PWd1.1 (0.7-1.1cm)LVDs3.0 (2.5-4.0cm) FS (%) 43.4 %SV104.0 ml M-Mode DIMENSIONS IVSd1.02 (0.7-1.1cm)PWd1.17 (0.7-1.1cm) IVSs1.36 cmFS (%) 31 % LVDs4.50 (2.0-3.8cm)PWs1.40 cm LVEF(%)58 (>50%) Aortic Valve AoV Peak David.152.2cm/sAoV VTI35.7cm AO Peak GR.9.3mmHgLVOT Peak David.97.0cm/s LVOT VTI 25.41cmAO Mean GR.5mmHg MEME (VMAX)1.56nl2DOE (VTI)2.80cm2 Mitral Valve MV E Cpkmcsdl403.7cm/sMV DECEL [id number] MV A Kzvxqfdx544.7cm/sMV GTG07zi E/A Ratio1.1MVA (PHT)3.90cm2 TDI E/Lateral E'15.4E/Medial E'16.8 Pulmonary Valve PV Peak Bzjkjixx597.9cm/sPV Peak Grad.5mmHg Tricuspid Valve TR P. Dvpdbjxz904ry/sTR Peak Gr.12mmHg Pulmonary Vein S1 Otwczsdx54.7cm/sD2 Pxjvwhip43.2cm/s LEFT VENTRICLE The left ventricle is normal size. There is borderline concentric left ventricular hypertrophy. The l eft ventricular systolic function is normal and the ejection fraction is within normal range. Left ve ntricular ejection fraction is 55-60%. There is normal LV segmental wall motion. The left ventricular diastolic function and filling is normal for age. RIGHT VENTRICLE The right ventricle is normal size. The right ventricular systolic function is normal. ATRIA The left atrium is borderline dilated. The right atrium size is normal. The interatrial septum is int act with no evidence for an atrial septal defect or patent foramen ovale as noted on 2-D or Doppler i maging. AORTIC VALVE The aortic valve is mildly calcified. Doppler and Color Flow revealed no significant aortic regurgita tion. There is no significant aortic valvular stenosis. There is no aortic valvular vegetation. MITRAL VALVE The mitral valve is normal in structure. Mitral annular calcification is mild. There is no evidence o f mitral valve prolapse. There is no mitral valve stenosis. Doppler and Color Flow revealed trace esperanza ral valve regurgitation. TRICUSPID VALVE The tricuspid valve leaflets are thickened , but open well. Doppler and Color Flow revealed trace tri cuspid regurgitation. There is no tricuspid valve prolapse or vegetation. There is no tricuspid valve stenosis. PULMONIC VALVE The pulmonic valve is not well visualized. Doppler and Color Flow revealed no pulmonic valvular regur gitation. There is no pulmonic valvular stenosis. GREAT VESSELS The aortic root is normal in size. The IVC was not visualized. PERICARDIAL EFFUSION There is no pleural effusion. There is no evidence of significant pericardial effusion. Critical Notification Critical Value: No <Conclusion> The left ventricle is normal size. The left ventricular systolic function is normal and the ejection fraction is within normal range. Left ventricular ejection fraction is 55-60%. There is borderline concentric left ventricular hypertrophy. There is no significant aortic valvular stenosis. Doppler and Color Flow revealed no significant aortic regurgitation. Doppler and Color Flow revealed trace mitral valve regurgitation. Doppler and Color Flow revealed trace tricuspid regurgitation. Signed by : Sean Brown MD Electronically Approved : 03/13/2018 12:04:54
== END 2018-03-13 12:30 | disposition home or self-care (01) ==
LOC: CCL 06:13
PROVIDERS: ATTEND Internal Medicine Cardiovascular Disease
DX: I70.293 Other atherosclerosis of native arteries of extremities, bilateral legs (principal)
CPT/HCPCS: 36246; 36415; 75630; 80048; 85027; 85610; 93306; 99152; 99153; C1769; C1892; J1644; J2250; J3010; Q9967; C1771; G0269

== ENCOUNTER 2018-04-13 15:38 | Emergency (ER) | payer MEDICARE, OTHER ==
[2018-03-13 11:57] VITALS: BP 105/45
[~2018-04-13 15:38] MED LIST changes: -AMLO5TAB2 PO; +AMLO5TAB7 PO; +WARF7.5T48 PO
== END 2018-04-13 16:02 | disposition left against medical advice (07) ==
LOC: ER 15:38
DX: M54.5 Low back pain (principal); Z53.21 Procedure and treatment not carried out due to patient leaving prior to being seen by health care provider

== ENCOUNTER → 2018-08-27 | Outpatient (CLI) | payer MEDICARE, OTHER ==
[2018-03-13 11:57] VITALS: BP 105/45
[~2018-08-27] MED LIST changes: +AMLO5TAB10 PO; -AMLO5TAB7 PO; -HYDR-2758 PO; +HYDR-2761 PO; -HYDR-2762 PO; +HYDR-2765 PO; +HYDR-3164 PO; -HYDR-971 PO; -OXYC-323 PO; +OXYC1TAB15 PO
--- NOTE | 2018-08-27 16:14 | RAD ---
Right breast ultrasound, 08/27/2018: History: Abnormal mammogram An outside mammogram from 06/30/2018 demonstrated diffuse skin thickening with increased retroareolar opacities on the right. This was a new finding compared to old mammograms from 02/22/2009. The patient reports that there seemed to be an inflammatory process involving her right breast at that time which has subsequently resolved. A targeted ultrasound exam of the right retroareolar region today reveals several mildly prominent ducts. No intraluminal mass is seen within these ducts. No discrete breast mass is identified. We also targeted the right axilla as requested. No right axillary mass or adenopathy was identified. IMPRESSION: 1. Mild retroareolar ductal ectasia. 2. No retroareolar breast mass or axillary abnormality is detected. 3. While the mammographic findings on 06/30/2018 may have been due to mastitis, infiltrating or inflammatory breast cancer cannot be excluded sonographically. Repeat mammography is suggested and if the skin thickening persists, surgical consultation may still be indicated for evaluation of the possibility of inflammatory breast cancer. BI-RADS 1-incomplete
== END | disposition home or self-care (01) ==
LOC: US 14:35
PROVIDERS: ATTEND Family Medicine
DX: R92.8 Other abnormal and inconclusive findings on diagnostic imaging of breast (principal)
CPT/HCPCS: 76641

== ENCOUNTER 2019-01-21 12:38 | Inpatient (IN) | payer MEDICARE ==
[~2019-01-21] VITALS: Ht 167.6 cm; Wt 131.3 kg
--- NOTE | 2019-01-21 14:00 | PHYS DOC ---
Past Medical History Past Medical History: Anemia, CAD, Cancer, Diabetes-Type II, High Cholesterol, Heart Disease, Hypertension, Renal Failure, Other Additional Past Medical Histor: uterine cancer Past Surgical History: Hysterectomy, Other Additional Past Surgical Histo: FISTULA- L upper arm Alcohol Use: None Drug Use: None Adult General Chief Complaint Chief Complaint: chronic breast pain and back pain HPI HPI 73-year-old female with a history of end-stage renal disease presenting the emergency department with 2 main complaints. #1 She's been having right breast swelling for more than 2 weeks now. She reports she had an ultrasound which showed fluid in the breast. It is mildly tender but she denies any associated rashes or fevers. #2 Complaint: She complains of chronic thoracic back pain without any acute changes. She has been taking oxycodone was mildly helps her pain makes her tired and then later the pain just returns. Pain is a sharp shooting pain is not changed in characteristics for many months. She did not go to dialysis today and was told that she could just dialyzed on Friday. Last dialysis was . Review of systems is negative for chest pain shortness of breath fevers chills nausea vomiting. All other review of systems is negative. ED course: 73-year-old female presenting with chronic back pain and chronic right breast swelling. Vital signs are unremarkable. Patient's respiring at 15 times per minute on my examination initially. Not 9 times per minute. EKG and blood work ordered. EKG obtained and reviewed by myself shows sinus bradycardia. . Minimal ST depression in lead V3 which is nonspecific repolarization abnormality. Does not meet STEMI criteria. Blood work obtained which shows mildly low white blood cell count. Otherwise potassium within normal limits. End-stage renal disease present. CO2 is at 20. Patient is unable to do dialysis because of her back pain. We will admit the patient for pain management and possible dialysis. Current Medications Current Medications Current Medications Medications (Trade) Dose Ordered Sig/Kenney Start Time Stop Time Status Last Admin Dose Admin Hydralazine HCl (Apresoline Inj) 10 mg 1X ONCE 01/21/19 16:00 01/21/19 16:05 DC Hydromorphone HCl (Dilaudid) 0.5 mg PRN Q1HR PRN 01/21/19 14:15 01/21/19 14:27 0.5 MG Morphine Sulfate (Morphine Sulfate) 2 mg PRN Q2HR PRN 01/21/19 15:30 01/22/19 15:29 Ondansetron HCl (Zofran) 4 mg PRN Q8HRS PRN 01/21/19 15:30 01/22/19 15:29 Allergies Allergies Allergies Coded Allergies Type Severity Reaction Last Updated Verified No Known Medication Allergies Allergy Unknown 05/07/17 Yes Physical Exam Physical Exam Constitutional: Well developed, well nourished, no acute distress, non-toxic appearance. HENT: Normocephalic, atraumatic, bilateral external ears normal, oropharynx moist, no oral exudates, nose normal. [] Eyes: PERRLA, EOMI, conjunctiva normal, no discharge. Neck: Normal range of motion, no tenderness, supple, no stridor. Breast exam performed in the essence of the patient's female nurse. There is a substantial difference in breast size on the right compared to the left. No erythema. Not suggestive of abscess. Cardiovascular:Heart rate regular rhythm, no murmur [] Lungs & Thorax: Bilateral breath sounds clear to auscultation Abdomen: Bowel sounds normal, soft, no tenderness, no masses, no pulsatile masses. No rebound tenderness or gaurding. Skin: Warm, dry, no erythema, no rash. [] Back: No tenderness, no CVA tenderness. Extremities: No tenderness, no cyanosis, no clubbing, ROM intact, no edema. [] Neurologic: Alert and oriented X 3, normal motor function, normal sensory function, no focal deficits noted. Psychologic: Affect normal, judgement normal, mood normal. [] Current Patient Data Vital Signs Vital Signs Date Time Temp Pulse Resp B/P (MAP) Pulse Ox O2 Delivery O2 Flow Rate FiO2 01/21/19 14:27 10 97 Room Air 01/21/19 12:38 98.1 61 152/65 (94) 98.1 Lab Values Laboratory Tests Test 01/21/19 14:00 White Blood Count 3.9 x10^3/uL (4.0-11.0) L Red Blood Count 3.65 x10^6/uL (3.50-5.40) Hemoglobin 11.9 g/dL (12.0-15.5) L Hematocrit 38.0 % (36.0-47.0) Mean Corpuscular Volume 104 fL (79-100) H Mean Corpuscular Hemoglobin 33 pg (25-35) Mean Corpuscular Hemoglobin Concent 31 g/dL (31-37) Red Cell Distribution Width 19.2 % (11.5-14.5) H Platelet Count 175 x10^3/uL (140-400) Neutrophils (%) (Auto) 54 % (31-73) Lymphocytes (%) (Auto) 35 % (24-48) Monocytes (%) (Auto) 8 % (0-9) Eosinophils (%) (Auto) 2 % (0-3) Basophils (%) (Auto) 1 % (0-3) Neutrophils # (Auto) 2.1 x10^3/uL (1.8-7.7) Lymphocytes # (Auto) 1.4 x10^3/uL (1.0-4.8) Monocytes # (Auto) 0.3 x10^3/uL (0.0-1.1) Eosinophils # (Auto) 0.1 x10^3/uL (0.0-0.7) Basophils # (Auto) 0.0 x10^3/uL (0.0-0.2) Sodium Level 142 mmol/L (136-145) Potassium Level 4.5 mmol/L (3.5-5.1) Chloride Level 108 mmol/L (98-107) H Carbon Dioxide Level 20 mmol/L (21-32) L Anion Gap 14 (6-14) Blood Urea Nitrogen 31 mg/dL (7-20) H Creatinine 7.9 mg/dL (0.6-1.0) H Estimated GFR (Cockcroft-Gault) 6.0 BUN/Creatinine Ratio 4 (6-20) L Glucose Level 99 mg/dL (70-99) Calcium Level 9.2 mg/dL (8.5-10.1) Total Bilirubin 0.7 mg/dL (0.2-1.0) Aspartate Amino Transferase (AST) 23 U/L (15-37) Alanine Aminotransferase (ALT) 18 U/L (14-59) Alkaline Phosphatase 318 U/L (46-116) H Troponin I Quantitative 0.041 ng/mL (0.000-0.055) Total Protein 7.2 g/dL (6.4-8.2) Albumin 3.9 g/dL (3.4-5.0) Albumin/Globulin Ratio 1.2 (1.0-1.7) Laboratory Tests 01/21/19 14:00 Laboratory Tests 01/21/19 14:00 EKG EKG [] Radiology/Procedures Radiology/Procedures [] Course & Med Decision Making Course & Med Decision Making Pertinent Labs and Imaging studies reviewed. (See chart for details) [] Dragon Disclaimer Dragon Disclaimer This electronic medical record was generated, in whole or in part, using a voice recognition dictation system. Departure Departure Impression: Primary Impression: Breast pain Additional Impression: Back pain Disposition: ADMITTED INPATIENT Admitting Physician: Mable Huff Condition: STABLE Referrals: Joanne HUFF MD (PCP) Problem Qualifiers RYAN JEWELL MD Jan 21, 2019 14:00
[2019-01-21] MEDS ORDERED: ONDANSETRON PF 4 MG/2 ML VIAL. IV ONE (14:15)
[2019-01-21] MEDS ORDERED: HYDROmorphone 2 MG/ML VIAL IV/SQ PRN (14:15)
[2019-01-21 14:28] LABS: BASO % 1 % (0-3); EOS # 0.1 x10^3/uL (0.0-0.7); EOS % 2 % (0-3); HEMOGLOBIN 11.9 g/dL (12.0-15.5); LYMPH # 1.4 x10^3/uL (1.0-4.8); LYMPH % 35 % (24-48); MEAN CORPUSCULAR HEMOGLOBIN 33 pg (25-35); MEAN CORPUSCULAR HGB CONC 31 g/dL (31-37); MEAN CORPUSCULAR VOLUME 104 fL (79-100); MONO # 0.3 x10^3/uL (0.0-1.1); MONO % 8 % (0-9); NEUT # 2.1 x10^3/uL (1.8-7.7); NEUT % 54 % (31-73); PLATELET COUNT 175 x10^3/uL (140-400); RED BLOOD COUNT 3.65 x10^6/uL (3.50-5.40); RED CELL DISTRIBUTION WIDTH 19.2 % (11.5-14.5); WHITE BLOOD COUNT 3.9 x10^3/uL (4.0-11.0)
[2019-01-21 14:40] LABS: CALCIUM 9.2 mg/dL (8.5-10.1); CREATININE 7.9 mg/dL (0.6-1.0); POTASSIUM 4.5 mmol/L (3.5-5.1)
[2019-01-21 14:46] LABS: ALBUMIN 3.9 g/dL (3.4-5.0); ALBUMIN/GLOBULIN RATIO 1.2 (1.0-1.7); TOTAL BILIRUBIN 0.7 mg/dL (0.2-1.0); TOTAL PROTEIN 7.2 g/dL (6.4-8.2)
--- NOTE | 2019-01-21 15:03 | EKG ---
[facility] [address] [place] [address] Test Date: 2019-01-21 Test Time: 13:09:45 Pat Name: ROSE CAMPOS Department: Room: Gender: F All Round Logger: : 1945 Requested By: RYAN JEWELL Order Number: [id number] Reading MD: Measurements Intervals [place] Rate: 60 P: CA: QRS: 126 QRSD: 116 T: 18 QT: 484 QTc: 484 Interpretive Statements IRREGULAR RHYTHM, NO P-WAVE FOUND ABNORMAL RIGHT AXIS DEVIATION LOW LIMB LEAD VOLTAGE INCOMPLETE RIGHT BUNDLE BRANCH BLOCK RIGHT VENTRICULAR HYPERTROPHY T ABNORMALITY IN ANTEROSEPTAL LEADS PROLONGED QT ABNORMAL ECG RI6.01 Unconfirmed report No previous ECG available for comparison
[2019-01-21] MEDS ORDERED: ONDANSETRON PF 4 MG/2 ML VIAL. IV PRN (15:30)
[2019-01-21] MEDS ORDERED: MORPHINE SULFATE 2 MG/ML VIAL. IV PRN (15:30)
[2019-01-21] MEDS ORDERED: hydrALAZINE 20 MG/ML VIAL. IVP ONE (16:00)
[2019-01-21 17:37] VITALS: BP 116/48
[2019-01-21] MEDS ORDERED: MIDODRINE 5 MG TABLET PO PRN (17:45)
[2019-01-21 19:32] LABS: PROTHROMBIN TIME PATIENT 15.5 SEC (11.7-14.0)
[2019-01-21 19:57] VITALS: BP 125/44
[2019-01-21] MEDS: ALBUTEROL SULFATE 2.5 MG/3 ML NEBU. NEB SCH (20:00)
[2019-01-21] MEDS ORDERED: NON FORMULARY ITEM (Albuterol Sulfate (Ventolin Hfa Inhaler) 2 PUFF) INH SCH (21:00)
[2019-01-21] MEDS: INSULIN GLARGINE 300 UNITS/3 ML INSULN.PEN. SQ SCH (21:00)
[2019-01-21] MEDS ORDERED: FAMOTIDINE 20 MG TABLET. PO SCH (21:00)
[2019-01-21] MEDS: WARFARIN 7.5 MG TABLET. PO SCH (21:38)
[2019-01-21] MEDS: HYDROcodone/APAP 7.5/325MG 1 TAB TABLET PO PRN (21:48)
[2019-01-21 22:58] VITALS: BP 102/42
[2019-01-22 03:16] VITALS: BP 100/41
[2019-01-22] MEDS: LEVOTHYROXINE 50 MCG TABLET PO SCH (06:36)
[2019-01-22] MEDS: ALBUTEROL SULFATE 2.5 MG/3 ML NEBU. NEB SCH ×2 (07:01→20:00)
[2019-01-22 07:05] VITALS: BP 97/42
[2019-01-22] MEDS ORDERED: DEXTROSE 50% 25 GM / 50ML DISP.SYRIN. IV PRN (07:30)
[2019-01-22] MEDS ORDERED: DEXTROSE 50% 25 GM / 50ML DISP.SYRIN. IV ONE (07:32)
[2019-01-22] MEDS: INSULIN LISPRO 300 UNITS/3 ML INSULN.PEN. SQ SCH ×3 (08:00→17:00)
--- NOTE | 2019-01-22 08:45 | PDOC2 ---
NATALIE SOTO CONSTRUCTION MGR 01/22/19 0844: CARDIAC CONSULT DATE OF CONSULT Date of Consult DATE: 01/22/19 TIME: 08:22 REASON FOR CONSULT Reason for Consult: AFIB REFERRING PHYSICIAN Referring Physician: Jai SOURCE Source: Chart review, Patient HISTORY OF PRESENT ILLNESS HISTORY OF PRESENT ILLNESS This is a pleasant 73 yo female admitted for complains of right breast pain and back pain. Her right breast bigger than left and tender and what finally made her come to ED was her right back pain. No chest pain, SOA, palpitations, passing out. No nausea or vomiting. No fever or chills. Pt reports no hx of CAD, arrhythmias, CVA, or VTE. She does have GERD but no PUD. Consult is for AFIB but I have not noted this at all in her tele but does have borderline RBBB which is new for her. PAST MEDICAL HISTORY Cardiovascular: HTN, Other (orthostasis; PAD) Pulmonary: Asthma GI: GERD Heme/Onc: Anemia NOS Psych: Anxiety Musculoskeletal: Osteoarthritis Renal/: Chronic renal failure, Benign prostatic enlarg. Endocrine: Diabetes (2), Hypothyroidism PAST SURGICAL HISTORY Past Surgical History: Tonsillectomy, Other (LA AV dialysis fistula placement) SOCIAL HISTORY Smoke: No ALCOHOL: none Drugs: None Lives: Alone (with psychometrician) CURRENT MEDICATIONS CURRENT MEDICATIONS Current Medications Medications (Trade) Dose Ordered Sig/Kenney Route PRN Reason Start Time Stop Time Status Last Admin Dose Admin Hydromorphone HCl (Dilaudid) 0.5 mg PRN Q1HR PRN IV/SQ PAIN GREATER THAN 3/10 01/21/19 14:15 01/21/19 14:27 Ondansetron HCl (Zofran) 4 mg 1X ONCE IV 01/21/19 14:15 01/21/19 14:16 DC 01/21/19 14:24 Acetaminophen/ Hydrocodone Bitart (Lortab 7.5/325) 1 tab PRN BID PRN PO PAIN 01/21/19 17:45 01/21/19 21:48 Levothyroxine Sodium (Synthroid) 50 mcg DAILY06 PO 01/22/19 06:00 01/22/19 06:36 Famotidine (Pepcid) 20 mg HS PO 01/21/19 21:00 01/21/19 21:36 Warfarin Sodium (Coumadin) 7.5 mg DAILY16 PO 01/21/19 21:15 01/21/19 21:38 Dextrose (Dextrose 50%-Water Syringe) 12.5 gm PRN Q15MIN PRN IV SEE COMMENTS 01/22/19 07:30 01/22/19 07:36 ALLERGIES ALLERGIES: Coded Allergies: No Known Medication Allergies (Verified Allergy, Unknown, 05/07/17) ROS Review of System 14 point ROS evaluated with pertinent positives noted per HPI PHYSICAL EXAM General: Alert, Oriented X3, Cooperative, No acute distress HEENT: Atraumatic, Mucous membr. moist/pink Lungs: Clear to auscultation, Normal air movement Heart: Regular rate (SR), Normal S1, Normal S2, Other (3/6 systolic murmur to LLS border) Abdomen: Soft, No tenderness, Other (obese) Extremities: No cyanosis, No edema Skin: No breakdown, No significant lesion Neuro: Normal speech, Sensation intact Psych/Mental Status: Mental status NL, Mood NL MUSCULOSKELETAL: Osteoarthritic changes both hands VITALS/I&O VITALS/I&O: Vital Signs Date Time Temp Pulse Resp B/P (MAP) Pulse Ox O2 Delivery O2 Flow Rate FiO2 01/22/19 07:05 97.8 51 18 97/42 (60) 100 Room Air 97.8 I & O 01/21/19 01/21/19 01/22/19 15:00 23:00 07:00 Intake Total 50 ml 100 ml Balance 50 ml 100 ml LABS Lab: Laboratory Tests Test 01/21/19 14:00 01/21/19 20:21 01/21/19 21:46 01/22/19 07:24 White Blood Count 3.9 x10^3/uL (4.0-11.0) L Red Blood Count 3.65 x10^6/uL (3.50-5.40) Hemoglobin 11.9 g/dL (12.0-15.5) L Hematocrit 38.0 % (36.0-47.0) Mean Corpuscular Volume 104 fL (79-100) H Mean Corpuscular Hemoglobin 33 pg (25-35) Mean Corpuscular Hemoglobin Concent 31 g/dL (31-37) Red Cell Distribution Width 19.2 % (11.5-14.5) H Platelet Count 175 x10^3/uL (140-400) Neutrophils (%) (Auto) 54 % (31-73) Lymphocytes (%) (Auto) 35 % (24-48) Monocytes (%) (Auto) 8 % (0-9) Eosinophils (%) (Auto) 2 % (0-3) Basophils (%) (Auto) 1 % (0-3) Neutrophils # (Auto) 2.1 x10^3/uL (1.8-7.7) Lymphocytes # (Auto) 1.4 x10^3/uL (1.0-4.8) Monocytes # (Auto) 0.3 x10^3/uL (0.0-1.1) Eosinophils # (Auto) 0.1 x10^3/uL (0.0-0.7) Basophils # (Auto) 0.0 x10^3/uL (0.0-0.2) Prothrombin Time 15.5 SEC (11.7-14.0) H Prothrombin Time INR 1.3 (0.8-1.1) H Sodium Level 142 mmol/L (136-145) Potassium Level 4.5 mmol/L (3.5-5.1) Chloride Level 108 mmol/L (98-107) H Carbon Dioxide Level 20 mmol/L (21-32) L Anion Gap 14 (6-14) Blood Urea Nitrogen 31 mg/dL (7-20) H Creatinine 7.9 mg/dL (0.6-1.0) H Estimated GFR (Cockcroft-Gault) 6.0 BUN/Creatinine Ratio 4 (6-20) L Glucose Level 99 mg/dL (70-99) Calcium Level 9.2 mg/dL (8.5-10.1) Total Bilirubin 0.7 mg/dL (0.2-1.0) Aspartate Amino Transferase (AST) 23 U/L (15-37) Alanine Aminotransferase (ALT) 18 U/L (14-59) Alkaline Phosphatase 318 U/L (46-116) H Troponin I Quantitative 0.041 ng/mL (0.000-0.055) Total Protein 7.2 g/dL (6.4-8.2) Albumin 3.9 g/dL (3.4-5.0) Albumin/Globulin Ratio 1.2 (1.0-1.7) Glucose (Fingerstick) 139 mg/dL (70-99) H 119 mg/dL (70-99) H 67 mg/dL (70-99) L Laboratory Tests 01/21/19 14:00 Laboratory Tests 01/21/19 14:00 ECHOCARDIOGRAM ECHOCARDIOGRAM <Conclusion> The left ventricle is normal size. The left ventricular systolic function is normal and the ejection fraction is within normal range. Left ventricular ejection fraction is 55-60%. There is borderline concentric left ventricular hypertrophy. There is no significant aortic valvular stenosis. Doppler and Color Flow revealed no significant aortic regurgitation. Doppler and Color Flow revealed trace mitral valve regurgitation. Doppler and Color Flow revealed trace tricuspid regurgitation. DATE: 03/13/18 1204 ASSESSMENT/PLAN ASSESSMENT/PLAN 1. Right breast and back pain: per PCP 2. Asymptomatic Arrhythmia: no AFIB but noted with SR/SB with WAP and borderline RBBB which is new for her 3. HTN: controlled 4. HLP 5. DM2 6. Morbid obesity 7. ESRD 8. PAD: clinically stable. Recommendations 1. No AV petr blocking agents. Continue home Norvasc 2. Secondary prevention measures. if no statin then start per lipid level. 3. Check TSH, and TTE 4. Fluid off loading per HD LEXUS THORNE MD 01/22/19 1933: CARDIAC CONSULT ASSESSMENT/PLAN ASSESSMENT/PLAN Patient seen and examined. Agree with LEATHER CRAFTSMAN's assessment and plan. Tele did not show any atrial fib episodes Recent echo showed normal LVF Continue HD per Nephrology team No further cardiac w/u is indicated at this time Thank you for your consultation NATALIE SOTO APRN Jan 22, 2019 08:44 LEXUS THORNE MD Jan 22, 2019 19:33
[2019-01-22] MEDS: SEVELAMER CARBONATE 800 MG TABLET. PO SCH ×3 (09:00→17:49)
[2019-01-22] MEDS: ASPIRIN ENTERIC COATED 81 MG TABLET.DR. PO SCH (09:00)
[2019-01-22] MEDS: FOLIC/VIT B COMP W-C (RENAL) TABLET. PO SCH (09:00)
[2019-01-22] MEDS: amLODIPine BESYLATE 5 MG TABLET PO SCH (09:00)
[2019-01-22] MEDS: CINACALCET HCL 30 MG TABLET PO SCH (09:01)
[2019-01-22] MEDS: FLUTICASONE 50MCG/NASAL SPRAY 16GM BOTTLE. NS SCH (09:06)
--- NOTE | 2019-01-22 09:10 | PDOC1 ---
History and Physical Date of Admission Date of Admission 01/21/19 Identification/Chief Complaint Chief Complaint missed dialysis due to intractable lumbar back pain Source Source: Chart review, Patient History of Present Illness History of Present Illness She is nearly wheelchair bound and goes routinely to dialysis for ESRD but was unable to go the day of admission due to intractable lumbar back pain (that she attributes to her dialysis chair) and eventually transported to [facility] for eval, her pain has improved with IV dilaudid and sleeping overnight in a hospital bed. She was found to not have p waves on cardiac monitoring and cardiology was consulted. Renal was consulted for management of ESRD. She has had months or right breast lymphedema that is worsening and now involves her right abdominal wall, work up for cancer has been negative Past Medical History Cardiovascular: HTN, Other (orthostasis; PAD) Pulmonary: Asthma GI: GERD Heme/Onc: Anemia NOS, Cancer (uterine) Psych: Anxiety Renal/: Chronic renal failure Endocrine: Diabetes (2), Hypothyroidism Past Surgical History Past Surgical History: Tonsillectomy, Hysterectomy, Other (LA AV dialysis fistula placement) Family History Family History: Hypertension, Kidney Disease Social History Smoke: No ALCOHOL: none Drugs: None Current Problem List Problem List Problems Medical Problems: (1) Back pain Status: Acute (2) Breast pain Status: Acute Current Medications Current Medications Current Medications Medications (Trade) Dose Ordered Sig/Kenney Start Time Stop Time Status Last Admin Dose Admin Acetaminophen/ Hydrocodone Bitart (Lortab 7.5/325) 1 tab PRN BID PRN 01/21/19 17:45 01/21/19 21:48 1 TAB Albuterol Sulfate (Ventolin Neb Soln) 2.5 mg RTBID 01/21/19 20:00 Amlodipine Besylate (Norvasc) 5 mg DAILY 01/22/19 09:00 Aspirin (Ecotrin) 81 mg DAILY 01/22/19 09:00 01/22/19 09:00 81 MG Cinacalcet (Sensipar) 30 mg DAILY 01/22/19 09:00 01/22/19 09:01 30 MG Dextrose (Dextrose 50%-Water Syringe) 25 gm STK-MED ONCE 01/22/19 07:32 01/22/19 07:33 DC Famotidine (Pepcid) 20 mg HS 01/21/19 21:00 01/21/19 21:36 20 MG Fluticasone Propionate (Flonase) 2 spray DAILY 01/22/19 09:00 01/22/19 09:06 2 SPRAY Hydralazine HCl (Apresoline Inj) 10 mg 1X ONCE 01/21/19 16:00 01/21/19 16:28 DC Hydromorphone HCl (Dilaudid) 0.5 mg PRN Q1HR PRN 01/21/19 14:15 01/21/19 14:27 0.5 MG Ibuprofen (Motrin) 800 mg PRN Q6HRS PRN 01/21/19 17:45 Insulin Glargine (Lantus) 20 units QHS 01/21/19 21:00 Insulin Human Lispro (HumaLOG) 10 units TIDWMEALS 01/22/19 08:00 Levothyroxine Sodium (Synthroid) 50 mcg DAILY06 01/22/19 06:00 01/22/19 06:36 50 MCG Midodrine (Proamatine) 5 mg PRN DAILY PRN 01/21/19 17:45 Morphine Sulfate (Morphine Sulfate) 2 mg PRN Q2HR PRN 01/21/19 15:30 01/22/19 15:29 Non-Formulary Medication (Albuterol Sulfate (Ventolin Hfa Inhaler)) 2 puff BID 01/21/19 21:00 UNV Ondansetron HCl (Zofran) 4 mg PRN Q8HRS PRN 01/21/19 15:30 01/22/19 15:29 Sevelamer Carbonate (Renvela) 800 mg TIDWMEALS 01/22/19 08:00 01/22/19 09:00 800 MG Vitamin B Complex/ Vitamin C (Sandra-Donovan) 1 tab DAILY 01/22/19 09:00 01/22/19 09:00 1 TAB Warfarin Sodium (Coumadin Per Physician) 1 each PRN DAILY PRN 01/21/19 21:15 Warfarin Sodium (Coumadin) 7.5 mg DAILY16 01/21/19 21:15 01/21/19 21:38 7.5 MG Allergies Allergies Allergies Coded Allergies Type Severity Reaction Last Updated Verified No Known Medication Allergies Allergy Unknown 05/07/17 Yes ROS Review of System CONSTITUTIONAL: No fever or chills EYES: No recent changes SKIN: lymphedema of right breast and abdominal wall CARDIOVASCULAR: No chest pain, syncope, palpitations RESPIRATORY: No SOB or cough GASTROINTESTINAL: No nausea, vomiting or abdominal pain NEUROLOGICAL: No headaches, + weakness ENDOCRINE: + cold and heat intolerance GENITOURINARY: she does not make urine MUSCULOSKELETAL: chronic back painwith recent flare of intractable pain she claims was brought on by dialysis chair LYMPHATICS: No enlarged lymph nodes PSYCHIATRIC: + anxiety Physical Exam Physical Exam GEN.: No apparent distress. Alert and oriented, talkative HEENT: Head is normocephalic, atraumatic NECK: Supple. CHEST/BREASTS: Right breast with lymphedema that extends to lateral chest wall and abdominal wall LUNGS: Clear to auscultation. HEART: RRR, S1, S2 present. Peripheral pulses intact, no Afib per monitor ABDOMEN: Soft, nontender. Positive bowel sounds. EXTREMITIES: Without any cyanosis. NEUROLOGIC: Normal speech, normal tone, neuropathy type pain of feet PSYCHIATRIC: Normal affect, normal mood. SKIN: No ulcerations Vitals Vitals Vital Signs Date Time Temp Pulse Resp B/P (MAP) Pulse Ox O2 Delivery O2 Flow Rate FiO2 01/22/19 08:00 Room Air 01/22/19 07:05 97.8 51 18 97/42 (60) 100 97.8 Labs Labs Laboratory Tests Test 01/21/19 14:00 01/21/19 20:21 01/21/19 21:46 01/22/19 07:24 White Blood Count 3.9 x10^3/uL (4.0-11.0) Red Blood Count 3.65 x10^6/uL (3.50-5.40) Hemoglobin 11.9 g/dL (12.0-15.5) Hematocrit 38.0 % (36.0-47.0) Mean Corpuscular Volume 104 fL (79-100) Mean Corpuscular Hemoglobin 33 pg (25-35) Mean Corpuscular Hemoglobin Concent 31 g/dL (31-37) Red Cell Distribution Width 19.2 % (11.5-14.5) Platelet Count 175 x10^3/uL (140-400) Neutrophils (%) (Auto) 54 % (31-73) Lymphocytes (%) (Auto) 35 % (24-48) Monocytes (%) (Auto) 8 % (0-9) Eosinophils (%) (Auto) 2 % (0-3) Basophils (%) (Auto) 1 % (0-3) Neutrophils # (Auto) 2.1 x10^3/uL (1.8-7.7) Lymphocytes # (Auto) 1.4 x10^3/uL (1.0-4.8) Monocytes # (Auto) 0.3 x10^3/uL (0.0-1.1) Eosinophils # (Auto) 0.1 x10^3/uL (0.0-0.7) Basophils # (Auto) 0.0 x10^3/uL (0.0-0.2) Prothrombin Time 15.5 SEC (11.7-14.0) Prothromb Time International Ratio 1.3 (0.8-1.1) Sodium Level 142 mmol/L (136-145) Potassium Level 4.5 mmol/L (3.5-5.1) Chloride Level 108 mmol/L (98-107) Carbon Dioxide Level 20 mmol/L (21-32) Anion Gap 14 (6-14) Blood Urea Nitrogen 31 mg/dL (7-20) Creatinine 7.9 mg/dL (0.6-1.0) Estimated GFR (Cockcroft-Gault) 6.0 BUN/Creatinine Ratio 4 (6-20) Glucose Level 99 mg/dL (70-99) Calcium Level 9.2 mg/dL (8.5-10.1) Total Bilirubin 0.7 mg/dL (0.2-1.0) Aspartate Amino Transf (AST/SGOT) 23 U/L (15-37) Alanine Aminotransferase (ALT/SGPT) 18 U/L (14-59) Alkaline Phosphatase 318 U/L (46-116) Troponin I Quantitative 0.041 ng/mL (0.000-0.055) Total Protein 7.2 g/dL (6.4-8.2) Albumin 3.9 g/dL (3.4-5.0) Albumin/Globulin Ratio 1.2 (1.0-1.7) Glucose (Fingerstick) 139 mg/dL (70-99) 119 mg/dL (70-99) 67 mg/dL (70-99) Test 01/22/19 08:31 Glucose (Fingerstick) 88 mg/dL (70-99) Laboratory Tests Test 01/21/19 14:00 01/21/19 20:21 01/21/19 21:46 01/22/19 07:24 White Blood Count 3.9 x10^3/uL (4.0-11.0) Red Blood Count 3.65 x10^6/uL (3.50-5.40) Hemoglobin 11.9 g/dL (12.0-15.5) Hematocrit 38.0 % (36.0-47.0) Mean Corpuscular Volume 104 fL (79-100) Mean Corpuscular Hemoglobin 33 pg (25-35) Mean Corpuscular Hemoglobin Concent 31 g/dL (31-37) Red Cell Distribution Width 19.2 % (11.5-14.5) Platelet Count 175 x10^3/uL (140-400) Neutrophils (%) (Auto) 54 % (31-73) Lymphocytes (%) (Auto) 35 % (24-48) Monocytes (%) (Auto) 8 % (0-9) Eosinophils (%) (Auto) 2 % (0-3) Basophils (%) (Auto) 1 % (0-3) Neutrophils # (Auto) 2.1 x10^3/uL (1.8-7.7) Lymphocytes # (Auto) 1.4 x10^3/uL (1.0-4.8) Monocytes # (Auto) 0.3 x10^3/uL (0.0-1.1) Eosinophils # (Auto) 0.1 x10^3/uL (0.0-0.7) Basophils # (Auto) 0.0 x10^3/uL (0.0-0.2) Prothrombin Time 15.5 SEC (11.7-14.0) Prothromb Time International Ratio 1.3 (0.8-1.1) Sodium Level 142 mmol/L (136-145) Potassium Level 4.5 mmol/L (3.5-5.1) Chloride Level 108 mmol/L (98-107) Carbon Dioxide Level 20 mmol/L (21-32) Anion Gap 14 (6-14) Blood Urea Nitrogen 31 mg/dL (7-20) Creatinine 7.9 mg/dL (0.6-1.0) Estimated GFR (Cockcroft-Gault) 6.0 BUN/Creatinine Ratio 4 (6-20) Glucose Level 99 mg/dL (70-99) Calcium Level 9.2 mg/dL (8.5-10.1) Total Bilirubin 0.7 mg/dL (0.2-1.0) Aspartate Amino Transf (AST/SGOT) 23 U/L (15-37) Alanine Aminotransferase (ALT/SGPT) 18 U/L (14-59) Alkaline Phosphatase 318 U/L (46-116) Troponin I Quantitative 0.041 ng/mL (0.000-0.055) Total Protein 7.2 g/dL (6.4-8.2) Albumin 3.9 g/dL (3.4-5.0) Albumin/Globulin Ratio 1.2 (1.0-1.7) Glucose (Fingerstick) 139 mg/dL (70-99) 119 mg/dL (70-99) 67 mg/dL (70-99) Test 01/22/19 08:31 Glucose (Fingerstick) 88 mg/dL (70-99) VTE Prophylaxis Ordered VTE Prophylaxis Devices: Yes VTE Pharmacological Prophylaxi: Yes Assessment/Plan Assessment/Plan Intractable back pain - now controlled with IV narcotics and hospital bed positioning - Lumbar MRI ordered with additional recomendations pending results lymphedema of right chest and abdominal wall - OT lymphedema eval - prior cancer work up negative Type 2 DM with peripheral neuropathy, add gabapentin, continue home meds CAD with arhythmia noted in ER - cardiology consult Anxiety - continue home meds hypothyroidism - continue home meds ESRD - renal consult for dialysis HTN- continue home meds COPD - neb treatments prn PAD morbid obesity anemia of chronic renal disease Joanne HUFF MD Jan 22, 2019 09:10
--- NOTE | 2019-01-22 09:13 | EKG ---
[facility] [address] [place] [address] Test Date: 2019-01-22 Test Time: 09:08:07 Pat Name: ROSE CAMPOS Department: Room: 654 1 Gender: F Math Interventionist: : 1945 Requested By: NATALIE SOTO Order Number: [id number] Reading MD: Measurements Intervals [place] Rate: 57 P: IN: QRS: 34 QRSD: 78 T: -123 QT: 504 QTc: 494 Interpretive Statements IRREGULAR RHYTHM, NO P-WAVE FOUND LOW LIMB LEAD VOLTAGE PROLONGED QT NO SPECIFIC ECG ABNORMALITIES RI6.01 Unconfirmed report Compared to ECG 03/08/2014 07:31:52 Prolonged QT interval now present Sinus rhythm no longer present
[2019-01-22 09:15] LABS: CALCIUM 8.7 mg/dL (8.5-10.1); CREATININE 8.6 mg/dL (0.6-1.0); GFR 5.5; POTASSIUM 4.4 mmol/L (3.5-5.1)
[2019-01-22 09:19] LABS: CHOLESTEROL/HDL RATIO 2.7
[2019-01-22 11:02] VITALS: BP 116/45
[2019-01-22] MEDS: HYDROcodone/APAP 7.5/325MG 1 TAB TABLET PO PRN ×2 (12:11→23:25)
[2019-01-22 12:37] LABS: BASO % 1 % (0-3); EOS # 0.1 x10^3/uL (0.0-0.7); EOS % 3 % (0-3); HEMATOCRIT 35.7 % (36.0-47.0); HEMOGLOBIN 11.1 g/dL (12.0-15.5); LYMPH # 0.9 x10^3/uL (1.0-4.8); LYMPH % 31 % (24-48); MEAN CORPUSCULAR HEMOGLOBIN 33 pg (25-35); MEAN CORPUSCULAR HGB CONC 31 g/dL (31-37); MEAN CORPUSCULAR VOLUME 106 fL (79-100); MONO # 0.3 x10^3/uL (0.0-1.1); MONO % 10 % (0-9); NEUT # 1.6 x10^3/uL (1.8-7.7); NEUT % 55 % (31-73); PLATELET COUNT 153 x10^3/uL (140-400); RED BLOOD COUNT 3.36 x10^6/uL (3.50-5.40); RED CELL DISTRIBUTION WIDTH 19.4 % (11.5-14.5); WHITE BLOOD COUNT 2.9 x10^3/uL (4.0-11.0)
--- NOTE | 2019-01-22 13:41 | PDOC2 ---
CONSULT Date of Consult Date of Consult DATE: 01/22/19 TIME: 13:41 Reason for Consult Reason for Consult: ESRD History of Present Illness Reason for Visit: Pt is a 73 AAF ESRD on HD TTS , admittedwith c/o intractable lumbar back pain,she transported to [facility] for eval, her pain It improved with IV dilaudid She has had months or right breast lymphedema that is worsening and now involves her right abdominal wall, work up for cancer has been negative She didnt had HD on , last was Friday. Denies any SOB, No CP. 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) Current Problem List Problem List Problems Medical Problems: (1) Back pain Status: Acute (2) Breast pain Status: Acute Current Medications Current Medications Current Medications Hydromorphone HCl (Dilaudid) 0.5 mg PRN Q1HR PRN IV/SQ PAIN GREATER THAN 3/10 Last administered on 01/21/19at 14:27; Start 01/21/19 at 14:15 Ondansetron HCl (Zofran) 4 mg 1X ONCE IV Last administered on 01/21/19at 14:24; Start 01/21/19 at 14:15; Stop 01/21/19 at 14:16; Status DC Ondansetron HCl (Zofran) 4 mg PRN Q8HRS PRN IV NAUSEA/VOMITING; Start 01/21/19 at 15:30; Stop 01/22/19 at 15:29 Morphine Sulfate (Morphine Sulfate) 2 mg PRN Q2HR PRN IV PAIN; Start 01/21/19 at 15:30; Stop 01/22/19 at 15:29 Hydralazine HCl (Apresoline Inj) 10 mg 1X ONCE IVP ; Start 01/21/19 at 16:00; Stop 01/21/19 at 16:28; Status DC Amlodipine Besylate (Norvasc) 5 mg DAILY PO ; Start 01/22/19 at 09:00 Aspirin (Ecotrin) 81 mg DAILY PO Last administered on 01/22/19 09:00; Start 01/22/19 at 09:00 Cinacalcet (Sensipar) 30 mg DAILY PO Last administered on 01/22/19at 09:01; Start 01/22/19 at 09:00 Fluticasone Propionate (Flonase) 2 spray DAILY NS Last administered on 01/22/19 09:06; Start 01/22/19 at 09:00 Vitamin B Complex/ Vitamin C (Sandra-Donovan) 1 tab DAILY PO Last administered on 01/22/19at 09:00; Start 01/22/19 at 09:00 Acetaminophen/ Hydrocodone Bitart (Lortab 7.5/325) 1 tab PRN BID PRN PO PAIN Last administered on 01/22/19at 12:11; Start 01/21/19 at 17:45 Insulin Glargine (Lantus) 20 units QHS SQ ; Start 01/21/19 at 21:00 Sevelamer Carbonate (Renvela) 800 mg TIDWMEALS PO Last administered on 01/22/19at 12:11; Start 01/22/19 at 08:00 Non-Formulary Medication (Albuterol Sulfate (Ventolin Hfa Inhaler)) 2 puff BID INH ; Start 01/21/19 at 21:00; Status UNV Ibuprofen (Motrin) 800 mg PRN Q6HRS PRN PO INFLAMMATION; Start 01/21/19 at 17:45 Insulin Human Lispro (HumaLOG) 10 units TIDWMEALS SQ ; Start 01/22/19 at 08:00 Levothyroxine Sodium (Synthroid) 50 mcg DAILY06 PO Last administered on 01/22/19at 06:36; Start 01/22/19 at 06:00 Midodrine (Proamatine) 5 mg PRN DAILY PRN PO PER PROTOCOL; Start 01/21/19 at 17:45 Famotidine (Pepcid) 20 mg HS PO Last administered on 01/21/19at 21:36; Start 01/21/19 at 21:00 Warfarin Sodium (Coumadin) 7.5 mg DAILY16 PO Last administered on 01/21/19at 21:38; Start 01/21/19 at 21:15 Albuterol Sulfate (Ventolin Neb Soln) 2.5 mg RTBID NEB ; Start 01/21/19 at 20:00 Warfarin Sodium (Coumadin Per Physician) 1 each PRN DAILY PRN MC SEE COMMENTS; Start 01/21/19 at 21:15 Dextrose (Dextrose 50%-Water Syringe) 12.5 gm PRN Q15MIN PRN IV SEE COMMENTS Last administered on 01/22/19at 07:36; Start 01/22/19 at 07:30 Dextrose (Dextrose 50%-Water Syringe) 25 gm STK-MED ONCE IV ; Start 01/22/19 at 07:32; Stop 01/22/19 at 07:33; Status DC Gabapentin (Neurontin) 300 mg TID PO ; Start 01/22/19 at 14:00 Active Scripts Active Lantus Solostar (Insulin Glargine,Hum.rec.anlog) 300 Units/3 Ml Insuln.pen 20 Units SQ QHS Reported Coumadin (Warfarin Sodium) 7.5 Mg Tablet 1 Tab PO DAILY Hydrocodone-Apap 7.5-325 (Hydrocodone Bit/Acetaminophen) 1 Each Tablet 1 Tab PO BID PRN Fluticasone Propionate Nasal Garber (Fluticasone Propionate) 16 Gm Garber.susp 2 Garber NS DAILY Renvela (Sevelamer Carbonate) 800 Mg Tablet 800 Mg PO TIDWMEALS Ibuprofen 800 Mg Tablet 800 Mg PO PRN Q6HRS PRN Vitamin D3 (Cholecalciferol (Vitamin D3)) 2,000 Unit Tab.chew 1,000 Unit PO Ventolin Hfa Inhaler (Albuterol Sulfate) 18 Gm Hfa.aer.ad 2 Puff INH BID Amlodipine Besylate 5 Mg Tablet 5 Mg PO DAILY Nephro-Donovan Tablet (Folic Acid/Vitamin B Comp W-C) 0.8 Mg Tablet 0.8 Mg PO DAILY Sensipar (Cinacalcet Hcl) 30 Mg Tablet 30 Mg PO DAILY Low Dose Aspirin Ec (Aspirin) 81 Mg Tablet.dr 1 Tab PO DAILY Midodrine Hcl 5 Mg Tablet 5 Mg PO PRN PRN Levothyroxine Sodium 50 Mcg Tablet 50 Mcg PO DAILY Ranitidine Hcl 300 Mg Capsule 300 Mg PO BID Novolog (Insulin Aspart) 100 Unit/1 Ml Cartridge 10 Unit SQ TIDACHC Allergies Allergies: Coded Allergies: No Known Medication Allergies (Verified Allergy, Unknown, 05/07/17) ROS Review of System Per HPI Physical Exam Physical Exam GEN.: No apparent distress. HEENT: OM moist NECK: Supple. LUNGS: Clear to auscultation. HEART: RRR, S1, S2 present. ABDOMEN: Soft, Obese EXTREMITIES: No edema NEUROLOGIC: Grossly Normal SKIN: No Rash No Bonds Vital Signs Vital Signs Date Time Temp Pulse Resp B/P (MAP) Pulse Ox O2 Delivery O2 Flow Rate FiO2 01/22/19 12:11 93 Room Air 01/22/19 11:02 98.2 52 18 116/45 (68) 98.2 Assessment & Plan ESRD= On HD TTS - Last HD on Friday Currently E-Lytes and Vol status stable, No indication for HD today Tomorrow per her schedule Right breast and back pain: per PCP Asymptomatic Arrhythmia HTN: controlled DM2 PAD: clinically stable. Labs Labs Laboratory Tests Test 01/21/19 14:00 01/21/19 20:21 01/21/19 21:46 01/22/19 07:24 White Blood Count 3.9 x10^3/uL (4.0-11.0) Red Blood Count 3.65 x10^6/uL (3.50-5.40) Hemoglobin 11.9 g/dL (12.0-15.5) Hematocrit 38.0 % (36.0-47.0) Mean Corpuscular Volume 104 fL (79-100) Mean Corpuscular Hemoglobin 33 pg (25-35) Mean Corpuscular Hemoglobin Concent 31 g/dL (31-37) Red Cell Distribution Width 19.2 % (11.5-14.5) Platelet Count 175 x10^3/uL (140-400) Neutrophils (%) (Auto) 54 % (31-73) Lymphocytes (%) (Auto) 35 % (24-48) Monocytes (%) (Auto) 8 % (0-9) Eosinophils (%) (Auto) 2 % (0-3) Basophils (%) (Auto) 1 % (0-3) Neutrophils # (Auto) 2.1 x10^3/uL (1.8-7.7) Lymphocytes # (Auto) 1.4 x10^3/uL (1.0-4.8) Monocytes # (Auto) 0.3 x10^3/uL (0.0-1.1) Eosinophils # (Auto) 0.1 x10^3/uL (0.0-0.7) Basophils # (Auto) 0.0 x10^3/uL (0.0-0.2) Prothrombin Time 15.5 SEC (11.7-14.0) Prothromb Time International Ratio 1.3 (0.8-1.1) Sodium Level 142 mmol/L (136-145) Potassium Level 4.5 mmol/L (3.5-5.1) Chloride Level 108 mmol/L (98-107) Carbon Dioxide Level 20 mmol/L (21-32) Anion Gap 14 (6-14) Blood Urea Nitrogen 31 mg/dL (7-20) Creatinine 7.9 mg/dL (0.6-1.0) Estimated GFR (Cockcroft-Gault) 6.0 BUN/Creatinine Ratio 4 (6-20) Glucose Level 99 mg/dL (70-99) Calcium Level 9.2 mg/dL (8.5-10.1) Total Bilirubin 0.7 mg/dL (0.2-1.0) Aspartate Amino Transf (AST/SGOT) 23 U/L (15-37) Alanine Aminotransferase (ALT/SGPT) 18 U/L (14-59) Alkaline Phosphatase 318 U/L (46-116) Troponin I Quantitative 0.041 ng/mL (0.000-0.055) Total Protein 7.2 g/dL (6.4-8.2) Albumin 3.9 g/dL (3.4-5.0) Albumin/Globulin Ratio 1.2 (1.0-1.7) Glucose (Fingerstick) 139 mg/dL (70-99) 119 mg/dL (70-99) 67 mg/dL (70-99) Test 01/22/19 07:47 01/22/19 08:31 01/22/19 11:59 01/22/19 12:15 Sodium Level 141 mmol/L (136-145) Potassium Level 4.4 mmol/L (3.5-5.1) Chloride Level 108 mmol/L (98-107) Carbon Dioxide Level 18 mmol/L (21-32) Anion Gap 15 (6-14) Blood Urea Nitrogen 34 mg/dL (7-20) Creatinine 8.6 mg/dL (0.6-1.0) Estimated GFR (Cockcroft-Gault) 5.5 Glucose Level 108 mg/dL (70-99) Calcium Level 8.7 mg/dL (8.5-10.1) Triglycerides Level 69 mg/dL (0-150) Cholesterol Level 129 mg/dL (0-200) LDL Cholesterol, Calculated 67 mg/dL (0-100) VLDL Cholesterol, Calculated 14 mg/dL (0-40) Non-HDL Cholesterol Calculated 81 mg/dL (0-129) HDL Cholesterol 48 mg/dL (40-60) Cholesterol/HDL Ratio 2.7 Glucose (Fingerstick) 88 mg/dL (70-99) 111 mg/dL (70-99) White Blood Count 2.9 x10^3/uL (4.0-11.0) Red Blood Count 3.36 x10^6/uL (3.50-5.40) Hemoglobin 11.1 g/dL (12.0-15.5) Hematocrit 35.7 % (36.0-47.0) Mean Corpuscular Volume 106 fL (79-100) Mean Corpuscular Hemoglobin 33 pg (25-35) Mean Corpuscular Hemoglobin Concent 31 g/dL (31-37) Red Cell Distribution Width 19.4 % (11.5-14.5) Platelet Count 153 x10^3/uL (140-400) Neutrophils (%) (Auto) 55 % (31-73) Lymphocytes (%) (Auto) 31 % (24-48) Monocytes (%) (Auto) 10 % (0-9) Eosinophils (%) (Auto) 3 % (0-3) Basophils (%) (Auto) 1 % (0-3) Neutrophils # (Auto) 1.6 x10^3/uL (1.8-7.7) Lymphocytes # (Auto) 0.9 x10^3/uL (1.0-4.8) Monocytes # (Auto) 0.3 x10^3/uL (0.0-1.1) Eosinophils # (Auto) 0.1 x10^3/uL (0.0-0.7) Basophils # (Auto) 0.0 x10^3/uL (0.0-0.2) Laboratory Tests Test 01/21/19 14:00 01/21/19 20:21 01/21/19 21:46 01/22/19 07:24 White Blood Count 3.9 x10^3/uL (4.0-11.0) Red Blood Count 3.65 x10^6/uL (3.50-5.40) Hemoglobin 11.9 g/dL (12.0-15.5) Hematocrit 38.0 % (36.0-47.0) Mean Corpuscular Volume 104 fL (79-100) Mean Corpuscular Hemoglobin 33 pg (25-35) Mean Corpuscular Hemoglobin Concent 31 g/dL (31-37) Red Cell Distribution Width 19.2 % (11.5-14.5) Platelet Count 175 x10^3/uL (140-400) Neutrophils (%) (Auto) 54 % (31-73) Lymphocytes (%) (Auto) 35 % (24-48) Monocytes (%) (Auto) 8 % (0-9) Eosinophils (%) (Auto) 2 % (0-3) Basophils (%) (Auto) 1 % (0-3) Neutrophils # (Auto) 2.1 x10^3/uL (1.8-7.7) Lymphocytes # (Auto) 1.4 x10^3/uL (1.0-4.8) Monocytes # (Auto) 0.3 x10^3/uL (0.0-1.1) Eosinophils # (Auto) 0.1 x10^3/uL (0.0-0.7) Basophils # (Auto) 0.0 x10^3/uL (0.0-0.2) Prothrombin Time 15.5 SEC (11.7-14.0) Prothromb Time International Ratio 1.3 (0.8-1.1) Sodium Level 142 mmol/L (136-145) Potassium Level 4.5 mmol/L (3.5-5.1) Chloride Level 108 mmol/L (98-107) Carbon Dioxide Level 20 mmol/L (21-32) Anion Gap 14 (6-14) Blood Urea Nitrogen 31 mg/dL (7-20) Creatinine 7.9 mg/dL (0.6-1.0) Estimated GFR (Cockcroft-Gault) 6.0 BUN/Creatinine Ratio 4 (6-20) Glucose Level 99 mg/dL (70-99) Calcium Level 9.2 mg/dL (8.5-10.1) Total Bilirubin 0.7 mg/dL (0.2-1.0) Aspartate Amino Transf (AST/SGOT) 23 U/L (15-37) Alanine Aminotransferase (ALT/SGPT) 18 U/L (14-59) Alkaline Phosphatase 318 U/L (46-116) Troponin I Quantitative 0.041 ng/mL (0.000-0.055) Total Protein 7.2 g/dL (6.4-8.2) Albumin 3.9 g/dL (3.4-5.0) Albumin/Globulin Ratio 1.2 (1.0-1.7) Glucose (Fingerstick) 139 mg/dL (70-99) 119 mg/dL (70-99) 67 mg/dL (70-99) Test 01/22/19 07:47 01/22/19 08:31 01/22/19 11:59 01/22/19 12:15 Sodium Level 141 mmol/L (136-145) Potassium Level 4.4 mmol/L (3.5-5.1) Chloride Level 108 mmol/L (98-107) Carbon Dioxide Level 18 mmol/L (21-32) Anion Gap 15 (6-14) Blood Urea Nitrogen 34 mg/dL (7-20) Creatinine 8.6 mg/dL (0.6-1.0) Estimated GFR (Cockcroft-Gault) 5.5 Glucose Level 108 mg/dL (70-99) Calcium Level 8.7 mg/dL (8.5-10.1) Triglycerides Level 69 mg/dL (0-150) Cholesterol Level 129 mg/dL (0-200) LDL Cholesterol, Calculated 67 mg/dL (0-100) VLDL Cholesterol, Calculated 14 mg/dL (0-40) Non-HDL Cholesterol Calculated 81 mg/dL (0-129) HDL Cholesterol 48 mg/dL (40-60) Cholesterol/HDL Ratio 2.7 Glucose (Fingerstick) 88 mg/dL (70-99) 111 mg/dL (70-99) White Blood Count 2.9 x10^3/uL (4.0-11.0) Red Blood Count 3.36 x10^6/uL (3.50-5.40) Hemoglobin 11.1 g/dL (12.0-15.5) Hematocrit 35.7 % (36.0-47.0) Mean Corpuscular Volume 106 fL (79-100) Mean Corpuscular Hemoglobin 33 pg (25-35) Mean Corpuscular Hemoglobin Concent 31 g/dL (31-37) Red Cell Distribution Width 19.4 % (11.5-14.5) Platelet Count 153 x10^3/uL (140-400) Neutrophils (%) (Auto) 55 % (31-73) Lymphocytes (%) (Auto) 31 % (24-48) Monocytes (%) (Auto) 10 % (0-9) Eosinophils (%) (Auto) 3 % (0-3) Basophils (%) (Auto) 1 % (0-3) Neutrophils # (Auto) 1.6 x10^3/uL (1.8-7.7) Lymphocytes # (Auto) 0.9 x10^3/uL (1.0-4.8) Monocytes # (Auto) 0.3 x10^3/uL (0.0-1.1) Eosinophils # (Auto) 0.1 x10^3/uL (0.0-0.7) Basophils # (Auto) 0.0 x10^3/uL (0.0-0.2) Review All relevant outside records, renal labs, imaging studies, telemetry/EKG's were reviewed. MARIO NOVOA MD Jan 22, 2019 13:41
[2019-01-22 15:00] VITALS: BP 92/42
--- NOTE | 2019-01-22 15:31 | RAD ---
MRI Lumbar Spine without contrast History: Intractable back pain Technique: Multiplanar, multi sequential noncontrast MR imaging was performed of the lumbar spine. Comparison: None Findings: There is some motion degradation. Lumbar vertebral body stature and AP alignment are overall maintained. There is no significant fluid in the intervertebral disc spaces. Intervertebral disc spaces are relatively preserved. There is diffuse abnormal decreased T1 and T2 signal of the marrow throughout the visualized spine, not associated with significant marrow edema. There is some amorphous edema of the posterior subcutaneous fat of the lower back. Conus terminates near L1. L1-L2, L2-L3: These levels were not included on the axial images. Spinal canal and neural foramina are not significantly narrowed as seen on sagittal images. L3-L4: There is [id number] buckling of the ligamentum flavum greater on the right and mild facet hypertrophic change. Neural foramina and spinal canal are overall adequate. L4-L5: There is mild buckling of the ligamentum flavum and right greater than left facet degenerative change. Spinal canal is not significantly narrowed. Neural foramina are overall adequate. L5-S1: There is mild to moderate facet degenerative change greater on the right. Neural foramina are overall adequate. There is minimal posterior narrowing of the far lateral recesses by facets, central canal not significantly narrowed. Impression: 1. There is no significant lumbar spinal stenosis or neural foramina compromise. There is diffuse abnormal decreased T1 and T2 signal of the marrow not associated with significant marrow edema as may be seen with hyperplastic red marrow. There is some nonspecific edema of the posterior subcutaneous fat, no focal drainable fluid collection. Electronically signed by: Lev Ross MD (01/22/2019 3:28 PM) [id number]
[2019-01-22] MEDS: WARFARIN 7.5 MG TABLET. PO SCH (15:49)
[2019-01-22] MEDS: GABAPENTIN 300 MG CAPSULE. PO SCH ×2 (15:49→21:22)
[2019-01-22 19:20] VITALS: BP 110/35
[2019-01-22] MEDS: INSULIN GLARGINE 300 UNITS/3 ML INSULN.PEN. SQ SCH (21:00)
[2019-01-22 23:20] VITALS: BP 114/39
[2019-01-23 00:07] LABS: HEMOGLOBIN A1C 5.1 % (4.8-5.6)
[2019-01-23 03:20] VITALS: BP 107/35
[2019-01-23] MEDS: LEVOTHYROXINE 50 MCG TABLET PO SCH (06:23)
[2019-01-23 07:00] VITALS: BP 105/36
[2019-01-23] MEDS: ALBUTEROL SULFATE 2.5 MG/3 ML NEBU. NEB SCH ×2 (07:58→20:15)
[2019-01-23] MEDS: INSULIN LISPRO 300 UNITS/3 ML INSULN.PEN. SQ SCH ×3 (08:00→17:00)
[2019-01-23] MEDS: amLODIPine BESYLATE 5 MG TABLET PO SCH (09:00)
--- NOTE | 2019-01-23 09:25 | RAD ---
DUPLEX SONOGRAPHY OF THE PERIPHERAL ARTERIAL SYSTEM OF BOTH LOWER EXTREMITIES Clinical indications: Morbid obesity. Extreme tenderness of both legs. Bilateral heel pain. Feet pain. History of peripheral arterial disease. Findings: Duplex sonography of the peripheral arterial system of both lower extremities including valentine scale and color flow and spectral waveform analysis was performed. The study was technically difficult due to the large patient body habitus and patient moving legs during exam with leg tenderness. Biphasic and monophasic waveforms are seen. Peroneal and anterior tibial arteries are not visualized on either side.There is significant increase in peak systolic flow velocity measurement within the left distal superficial femoral artery which may indicate at least a 50 percent stenosis. The measurements were performed using the NASCET criteria. Peak systolic flow velocities are as follows: Right leg: common femoral artery- 181 cm/sec, profunda femoral artery -117 cm/sec, proximal superficial femoral artery -189 cm/sec, mid superficial femoral artery -154 cm/sec, distal superficial femoral artery- 131 cm/sec, popliteal artery -52 cm/sec, proximal posterior tibial artery- 31 cm/sec, distal posterior tibial artery- 37 cm/sec, peroneal artery-not visualized, anterior tibial artery-not visualized, dorsalis pedis artery -59 cm/sec. Left leg: common femoral artery- 143 cm/sec, profunda femoral artery -158 cm/sec, proximal superficial femoral artery- 184cm/sec, mid superficial femoral artery- 140 cm/sec, distal superficial femoral artery- 287 cm/sec, popliteal artery -77 cm/sec, proximal posterior tibial artery -38 cm/sec, distal posterior tibial artery- 42 cm/sec, peroneal artery -not visualized, anterior tibial artery -not visualized, dorsalis pedis artery- 26 cm/sec. Impression: The peroneal and anterior tibial arteries are not visualized on either side. This may be due to the patient's large body habitus but occlusive disease cannot be excluded. At least a 50 percent stenosis is identified within the distal left superficial femoral artery. Electronically signed by: Jakob Godinez MD (01/23/2019 9:22 AM) [facility]
[2019-01-23] MEDS: FLUTICASONE 50MCG/NASAL SPRAY 16GM BOTTLE. NS SCH (10:48)
[2019-01-23] MEDS: GABAPENTIN 300 MG CAPSULE. PO SCH ×3 (10:49→21:16)
[2019-01-23] MEDS: SEVELAMER CARBONATE 800 MG TABLET. PO SCH ×3 (10:49→17:00)
--- NOTE | 2019-01-23 10:56 | PDOC ---
SUBJECTIVE Subjective Pt c/o back pain, right breast pain. Not eating very well. BP and BS have been low since admission. Pt to be getting HD today. OBJECTIVE Vital Signs Vital Signs Date Time Temp Pulse Resp B/P (MAP) Pulse Ox O2 Delivery O2 Flow Rate FiO2 01/23/19 08:00 88 01/23/19 07:00 98.0 64 16 105/36 (59) 98 Room Air 98.0 01/23/19 03:20 97.7 58 16 107/35 (59) 94 Room Air 97.7 01/23/19 00:32 Room Air 01/22/19 23:25 97 Room Air 01/22/19 23:20 98.3 69 16 114/39 (64) 95 Room Air 98.3 01/22/19 20:02 97 01/22/19 20:00 Room Air 01/22/19 19:20 98.4 69 16 110/35 (60) 95 Room Air 98.4 01/22/19 15:00 98.0 68 18 92/42 (59) 93 Room Air 98.0 01/22/19 12:11 93 Room Air 01/22/19 11:02 98.2 52 18 116/45 (68) 93 Room Air 98.2 I & O Intake and Output 01/23/19 07:00 Intake Total 1070 ml Balance 1070 ml Intake Oral 1070 ml PHYSICAL EXAM Physical Exam GEN.: No apparent distress. Alert and oriented, talkative, malodorous HEENT: Head is normocephalic, atraumatic NECK: Supple. CHEST/BREASTS: Right breast with lymphedema that extends to lateral chest wall and abdominal wall LUNGS: Clear to auscultation. HEART: RRR, S1, S2 present. Peripheral pulses intact ABDOMEN: Soft, nontender. Positive bowel sounds. EXTREMITIES: Without any cyanosis. NEUROLOGIC: Normal speech, normal tone, neuropathy type pain of feet PSYCHIATRIC: Normal affect, normal mood. SKIN: No ulcerations ASSESSMENT/PLAN Assessment/Plan Pt is a 73yo AAF admitted for intractable back pain 1)Intractable back pain - now controlled with IV narcotics and hospital bed positioning - Lumbar MRI showing hyperplastic red marrow and nonspecific edema of posterior subcutaneous fat but is otherwise normal 2)lymphedema of right chest and abdominal wall - OT lymphedema eval - prior cancer work up negative 3)Type 2 DM with peripheral neuropathy, add gabapentin- pt's HbA1C is 5.1. Her blood sugars have been low to normal without medication since admission. Will D/C her scheduled meds and have SSI available. 4)CAD with arhythmia noted in ER - cardiology consulted and they have signed off. Tele monitor reading atrial fibrillation although it is difficult to see on tele whether there are consistent p waves or not. Will get 12 lead. 5)Anxiety - continue home meds 6)hypothyroidism - continue home meds 7)ESRD - Renal following 8)HTN- BP has been on lower side and she has not been receiving her medications. Will hold her Norvasc for now 9)COPD - neb treatments prn 10)PAD 11)morbid obesity 12)anemia of chronic renal disease 13)Neutropenia COMMENT Lab Laboratory Tests Test 01/22/19 11:59 01/22/19 12:15 01/22/19 17:07 01/22/19 21:41 Glucose (Fingerstick) 111 mg/dL (70-99) 84 mg/dL (70-99) 105 mg/dL (70-99) White Blood Count 2.9 x10^3/uL (4.0-11.0) Red Blood Count 3.36 x10^6/uL (3.50-5.40) Hemoglobin 11.1 g/dL (12.0-15.5) Hematocrit 35.7 % (36.0-47.0) Mean Corpuscular Volume 106 fL (79-100) Mean Corpuscular Hemoglobin 33 pg (25-35) Mean Corpuscular Hemoglobin Concent 31 g/dL (31-37) Red Cell Distribution Width 19.4 % (11.5-14.5) Platelet Count 153 x10^3/uL (140-400) Neutrophils (%) (Auto) 55 % (31-73) Lymphocytes (%) (Auto) 31 % (24-48) Monocytes (%) (Auto) 10 % (0-9) Eosinophils (%) (Auto) 3 % (0-3) Basophils (%) (Auto) 1 % (0-3) Neutrophils # (Auto) 1.6 x10^3/uL (1.8-7.7) Lymphocytes # (Auto) 0.9 x10^3/uL (1.0-4.8) Monocytes # (Auto) 0.3 x10^3/uL (0.0-1.1) Eosinophils # (Auto) 0.1 x10^3/uL (0.0-0.7) Basophils # (Auto) 0.0 x10^3/uL (0.0-0.2) Hemoglobin A1c 5.1 % (4.8-5.6) Thyroid Stimulating Hormone (TSH) 4.467 uIU/mL (0.358-3.74) Test 01/23/19 07:32 Glucose (Fingerstick) 77 mg/dL (70-99) ROBERTO CAMPBELL MD Jan 23, 2019 10:56
[2019-01-23 11:00] VITALS: BP 119/41
[2019-01-23] MEDS ORDERED: DEXTROSE 50% 25 GM / 50ML DISP.SYRIN. IV PRN (11:00)
[2019-01-23] MEDS ORDERED: IV NORMAL SALINE 1000ML BAG 1,000 ML IV PRN ×2 (12:54)
[2019-01-23] MEDS ORDERED: ACETAMINOPHEN 500 MG TABLET PO PRN (13:00)
[2019-01-23] MEDS ORDERED: DIALYSIS PATIENT. MC PRN (13:00)
[2019-01-23] MEDS ORDERED: diphenhydrAMINE 50 MG/ML VIAL IV PRN ×2 (13:00)
[2019-01-23] MEDS ORDERED: ALBUMIN HUMAN 25% 200 ML IV PRN (13:00)
--- NOTE | 2019-01-23 13:42 | PDOC ---
Dialysis Progress Note Dialysis Note Dialysis Note Seen on Hemodialysis, tolerating treatment Well Vitals on Hemodialysis: 126/42 56 afeb General Appearance: Awake: Alert Oriented x 3 Neck: No JVD or JVP Chest: CTA Brigido Heart: S1 S2 Abdomen - Soft NTND Extremities - + Edema ESRD : Dialysis as below F 180 NR 3.0 Hrs 3 K 2.5 Ca 140 Na 40 HC03 Qb 350 + Qd 500+ Heparin 0 Units Uf 3 Kgs or to dry weight as tolerated May give 25-50 gms of 25% Albumin if needed to maintain Hemodynamic stability Treatment plan reviewed and discussed with medical management trainer Pt is ~ 7kg above EDW so will proceed with Extra HD in am to get to EDW. She c/o abd wall and left breast edema Vitals Vital Signs Vital Signs Date Time Temp Pulse Resp B/P (MAP) Pulse Ox O2 Delivery O2 Flow Rate FiO2 01/23/19 11:00 97.8 57 16 119/41 (67) 98 Room Air 97.8 Labs Last Labs Laboratory Tests Test 01/21/19 14:00 01/21/19 20:21 01/21/19 21:46 01/22/19 07:24 White Blood Count 3.9 x10^3/uL (4.0-11.0) Red Blood Count 3.65 x10^6/uL (3.50-5.40) Hemoglobin 11.9 g/dL (12.0-15.5) Hematocrit 38.0 % (36.0-47.0) Mean Corpuscular Volume 104 fL (79-100) Mean Corpuscular Hemoglobin 33 pg (25-35) Mean Corpuscular Hemoglobin Concent 31 g/dL (31-37) Red Cell Distribution Width 19.2 % (11.5-14.5) Platelet Count 175 x10^3/uL (140-400) Neutrophils (%) (Auto) 54 % (31-73) Lymphocytes (%) (Auto) 35 % (24-48) Monocytes (%) (Auto) 8 % (0-9) Eosinophils (%) (Auto) 2 % (0-3) Basophils (%) (Auto) 1 % (0-3) Neutrophils # (Auto) 2.1 x10^3/uL (1.8-7.7) Lymphocytes # (Auto) 1.4 x10^3/uL (1.0-4.8) Monocytes # (Auto) 0.3 x10^3/uL (0.0-1.1) Eosinophils # (Auto) 0.1 x10^3/uL (0.0-0.7) Basophils # (Auto) 0.0 x10^3/uL (0.0-0.2) Prothrombin Time 15.5 SEC (11.7-14.0) Prothromb Time International Ratio 1.3 (0.8-1.1) Sodium Level 142 mmol/L (136-145) Potassium Level 4.5 mmol/L (3.5-5.1) Chloride Level 108 mmol/L (98-107) Carbon Dioxide Level 20 mmol/L (21-32) Anion Gap 14 (6-14) Blood Urea Nitrogen 31 mg/dL (7-20) Creatinine 7.9 mg/dL (0.6-1.0) Estimated GFR (Cockcroft-Gault) 6.0 BUN/Creatinine Ratio 4 (6-20) Glucose Level 99 mg/dL (70-99) Calcium Level 9.2 mg/dL (8.5-10.1) Total Bilirubin 0.7 mg/dL (0.2-1.0) Aspartate Amino Transf (AST/SGOT) 23 U/L (15-37) Alanine Aminotransferase (ALT/SGPT) 18 U/L (14-59) Alkaline Phosphatase 318 U/L (46-116) Troponin I Quantitative 0.041 ng/mL (0.000-0.055) Total Protein 7.2 g/dL (6.4-8.2) Albumin 3.9 g/dL (3.4-5.0) Albumin/Globulin Ratio 1.2 (1.0-1.7) Glucose (Fingerstick) 139 mg/dL (70-99) 119 mg/dL (70-99) 67 mg/dL (70-99) Test 01/22/19 07:47 01/22/19 08:31 01/22/19 11:59 01/22/19 12:15 Sodium Level 141 mmol/L (136-145) Potassium Level 4.4 mmol/L (3.5-5.1) Chloride Level 108 mmol/L (98-107) Carbon Dioxide Level 18 mmol/L (21-32) Anion Gap 15 (6-14) Blood Urea Nitrogen 34 mg/dL (7-20) Creatinine 8.6 mg/dL (0.6-1.0) Estimated GFR (Cockcroft-Gault) 5.5 Glucose Level 108 mg/dL (70-99) Calcium Level 8.7 mg/dL (8.5-10.1) Triglycerides Level 69 mg/dL (0-150) Cholesterol Level 129 mg/dL (0-200) LDL Cholesterol, Calculated 67 mg/dL (0-100) VLDL Cholesterol, Calculated 14 mg/dL (0-40) Non-HDL Cholesterol Calculated 81 mg/dL (0-129) HDL Cholesterol 48 mg/dL (40-60) Cholesterol/HDL Ratio 2.7 Glucose (Fingerstick) 88 mg/dL (70-99) 111 mg/dL (70-99) White Blood Count 2.9 x10^3/uL (4.0-11.0) Red Blood Count 3.36 x10^6/uL (3.50-5.40) Hemoglobin 11.1 g/dL (12.0-15.5) Hematocrit 35.7 % (36.0-47.0) Mean Corpuscular Volume 106 fL (79-100) Mean Corpuscular Hemoglobin 33 pg (25-35) Mean Corpuscular Hemoglobin Concent 31 g/dL (31-37) Red Cell Distribution Width 19.4 % (11.5-14.5) Platelet Count 153 x10^3/uL (140-400) Neutrophils (%) (Auto) 55 % (31-73) Lymphocytes (%) (Auto) 31 % (24-48) Monocytes (%) (Auto) 10 % (0-9) Eosinophils (%) (Auto) 3 % (0-3) Basophils (%) (Auto) 1 % (0-3) Neutrophils # (Auto) 1.6 x10^3/uL (1.8-7.7) Lymphocytes # (Auto) 0.9 x10^3/uL (1.0-4.8) Monocytes # (Auto) 0.3 x10^3/uL (0.0-1.1) Eosinophils # (Auto) 0.1 x10^3/uL (0.0-0.7) Basophils # (Auto) 0.0 x10^3/uL (0.0-0.2) Hemoglobin A1c 5.1 % (4.8-5.6) Thyroid Stimulating Hormone (TSH) 4.467 uIU/mL (0.358-3.74) Test 01/22/19 17:07 01/22/19 21:41 01/23/19 07:32 01/23/19 11:45 Glucose (Fingerstick) 84 mg/dL (70-99) 105 mg/dL (70-99) 77 mg/dL (70-99) 108 mg/dL (70-99) Laboratory Tests Test 01/22/19 17:07 01/22/19 21:41 01/23/19 07:32 01/23/19 11:45 Glucose (Fingerstick) 84 mg/dL (70-99) 105 mg/dL (70-99) 77 mg/dL (70-99) 108 mg/dL (70-99) Assessment Assessment Problems Medical Problems: (1) Back pain Status: Acute (2) Breast pain Status: Acute Plan Plan of Care Problems Medical Problems: (1) Back pain Status: Acute (2) Breast pain Status: Acute VIPIN RICHARD MD Jan 23, 2019 13:42
--- NOTE | 2019-01-23 17:12 | NUR ---
Received report from Shahla GARVIN from dialysis. Pt VS are 100/51 HR 70 97.7. Took off 3.5 L Retrieving pt now.
[2019-01-23] MEDS: FOLIC/VIT B COMP W-C (RENAL) TABLET. PO SCH (17:29)
[2019-01-23] MEDS: ASPIRIN ENTERIC COATED 81 MG TABLET.DR. PO SCH (17:29)
[2019-01-23] MEDS: CINACALCET HCL 30 MG TABLET PO SCH (17:29)
[2019-01-23] MEDS: WARFARIN 7.5 MG TABLET. PO SCH (17:36)
[2019-01-23] MEDS: IBUPROFEN 400 MG TABLET. PO PRN (17:38)
[2019-01-23 19:51] VITALS: BP 132/52
[2019-01-23] MEDS ORDERED: FAMOTIDINE 20 MG TABLET. PO SCH (21:00)
[2019-01-23] MEDS: HYDROcodone/APAP 7.5/325MG 1 TAB TABLET PO PRN (21:18)
[2019-01-23 23:25] VITALS: BP 129/50
[2019-01-24 03:39] VITALS: BP 92/37
[2019-01-24] MEDS: LEVOTHYROXINE 50 MCG TABLET PO SCH (05:39)
[2019-01-24 07:00] VITALS: BP 127/56
[2019-01-24 07:45] LABS: BASO % 1 % (0-3); EOS # 0.1 x10^3/uL (0.0-0.7); EOS % 3 % (0-3); HEMATOCRIT 32.7 % (36.0-47.0); HEMOGLOBIN 10.3 g/dL (12.0-15.5); LYMPH # 0.9 x10^3/uL (1.0-4.8); LYMPH % 35 % (24-48); MEAN CORPUSCULAR HEMOGLOBIN 33 pg (25-35); MEAN CORPUSCULAR HGB CONC 31 g/dL (31-37); MEAN CORPUSCULAR VOLUME 104 fL (79-100); MONO # 0.3 x10^3/uL (0.0-1.1); MONO % 11 % (0-9); NEUT # 1.2 x10^3/uL (1.8-7.7); NEUT % 50 % (31-73); PLATELET COUNT 154 x10^3/uL (140-400); RED BLOOD COUNT 3.15 x10^6/uL (3.50-5.40); RED CELL DISTRIBUTION WIDTH 19.1 % (11.5-14.5); WHITE BLOOD COUNT 2.5 x10^3/uL (4.0-11.0)
[2019-01-24] MEDS: ALBUTEROL SULFATE 2.5 MG/3 ML NEBU. NEB SCH ×2 (07:47→19:53)
[2019-01-24] MEDS: INSULIN LISPRO 300 UNITS/3 ML INSULN.PEN. SQ SCH ×3 (08:00→17:00)
[2019-01-24 08:11] LABS: CALCIUM 7.9 mg/dL (8.5-10.1); CREATININE 7.1 mg/dL (0.6-1.0); GFR 6.8; POTASSIUM 4.1 mmol/L (3.5-5.1)
[2019-01-24] MEDS: CINACALCET HCL 30 MG TABLET PO SCH (08:19)
[2019-01-24] MEDS: SEVELAMER CARBONATE 800 MG TABLET. PO SCH ×3 (08:19→17:18)
[2019-01-24] MEDS: ASPIRIN ENTERIC COATED 81 MG TABLET.DR. PO SCH (08:20)
[2019-01-24] MEDS: FLUTICASONE 50MCG/NASAL SPRAY 16GM BOTTLE. NS SCH (08:20)
[2019-01-24] MEDS: FOLIC/VIT B COMP W-C (RENAL) TABLET. PO SCH (08:20)
[2019-01-24] MEDS: GABAPENTIN 300 MG CAPSULE. PO SCH ×3 (08:20→21:51)
[2019-01-24] MEDS ORDERED: IV NORMAL SALINE 1000ML BAG 1,000 ML IV PRN (09:16)
[2019-01-24] MEDS ORDERED: DIALYSIS PATIENT. MC PRN ×2 (09:30)
--- NOTE | 2019-01-24 09:37 | PDOC ---
SUBJECTIVE Subjective Pt states that she is doing okay. Still has some pain in her feet but is feeling better. Discussed possible discharge today; pt would like one more day to make sure she is still doing well before she goes home. Dizziness still present but improving. Would prefer to go home as opposed to SNF. OBJECTIVE Vital Signs Vital Signs Date Time Temp Pulse Resp B/P (MAP) Pulse Ox O2 Delivery O2 Flow Rate FiO2 01/24/19 07:48 97 Room Air 01/24/19 07:00 97.3 71 18 127/56 (79) 97 Room Air 97.3 01/24/19 03:39 98.0 79 16 92/37 (55) 95 Room Air 98.0 01/23/19 23:25 98.2 79 16 129/50 (76) 95 Room Air 98.2 01/23/19 22:18 16 93 Room Air 01/23/19 21:18 16 93 Room Air 01/23/19 20:14 93 Room Air 01/23/19 20:00 Room Air 01/23/19 19:51 97.9 59 16 132/52 (78) 93 Room Air 97.9 01/23/19 11:00 97.8 57 16 119/41 (67) 98 Room Air 97.8 I & O Intake and Output 01/24/19 06:59 Intake Total 220 ml Output Total 0 ml Balance 220 ml Intake Oral 220 ml Output Urine Total 0 ml PHYSICAL EXAM Physical Exam GEN.: No apparent distress. Alert and oriented, malodorous HEENT: Head is normocephalic, atraumatic NECK: Supple. CHEST/BREASTS: Right breast with lymphedema that extends to lateral chest wall and abdominal wall LUNGS: Clear to auscultation. HEART: RRR, S1, S2 present. Peripheral pulses intact ABDOMEN: Soft, nontender. Positive bowel sounds. EXTREMITIES: Without any cyanosis. NEUROLOGIC: Normal speech, normal tone PSYCHIATRIC: Normal affect, normal mood. SKIN: No ulcerations ASSESSMENT/PLAN Assessment/Plan Pt is a 73yo AAF admitted for intractable back pain and missed HD 1)Intractable back pain - now controlled with IV narcotics and hospital bed positioning - Lumbar MRI showing hyperplastic red marrow and nonspecific edema of posterior subcutaneous fat but is otherwise normal 2)lymphedema of right chest and abdominal wall - OT lymphedema eval - prior cancer work up negative 3)Type 2 DM with peripheral neuropathy, add gabapentin- pt's HbA1C is 5.1. Her blood sugars have been low to normal without medication since admission. Normal insulin was DCd and blood sugars have been stable. Pt has SSI available but has not needed any doses. 4)CAD with arhythmia noted in ER - cardiology consulted and they have signed off. 5)Anxiety - continue home meds 6)hypothyroidism - continue home meds 7)ESRD - Renal following. Pt getting extra HD this morning due to being above dry weight 8)HTN- BP has been on lower side and she has not been receiving her medications. Norvasc held, BP stable 9)COPD - neb treatments prn 10)PAD 11)morbid obesity 12)anemia of chronic renal disease 13)Neutropenia COMMENT Lab Laboratory Tests Test 01/23/19 11:45 01/23/19 18:06 01/23/19 20:57 01/24/19 07:20 Glucose (Fingerstick) 108 mg/dL (70-99) 110 mg/dL (70-99) 108 mg/dL (70-99) White Blood Count 2.5 x10^3/uL (4.0-11.0) Red Blood Count 3.15 x10^6/uL (3.50-5.40) Hemoglobin 10.3 g/dL (12.0-15.5) Hematocrit 32.7 % (36.0-47.0) Mean Corpuscular Volume 104 fL (79-100) Mean Corpuscular Hemoglobin 33 pg (25-35) Mean Corpuscular Hemoglobin Concent 31 g/dL (31-37) Red Cell Distribution Width 19.1 % (11.5-14.5) Platelet Count 154 x10^3/uL (140-400) Neutrophils (%) (Auto) 50 % (31-73) Lymphocytes (%) (Auto) 35 % (24-48) Monocytes (%) (Auto) 11 % (0-9) Eosinophils (%) (Auto) 3 % (0-3) Basophils (%) (Auto) 1 % (0-3) Neutrophils # (Auto) 1.2 x10^3/uL (1.8-7.7) Lymphocytes # (Auto) 0.9 x10^3/uL (1.0-4.8) Monocytes # (Auto) 0.3 x10^3/uL (0.0-1.1) Eosinophils # (Auto) 0.1 x10^3/uL (0.0-0.7) Basophils # (Auto) 0.0 x10^3/uL (0.0-0.2) Prothrombin Time 21.0 SEC (11.7-14.0) Prothromb Time International Ratio 1.8 (0.8-1.1) Sodium Level 140 mmol/L (136-145) Potassium Level 4.1 mmol/L (3.5-5.1) Chloride Level 103 mmol/L (98-107) Carbon Dioxide Level 28 mmol/L (21-32) Anion Gap 9 (6-14) Blood Urea Nitrogen 27 mg/dL (7-20) Creatinine 7.1 mg/dL (0.6-1.0) Estimated GFR (Cockcroft-Gault) 6.8 Glucose Level 123 mg/dL (70-99) Calcium Level 7.9 mg/dL (8.5-10.1) Test 01/24/19 07:47 Glucose (Fingerstick) 115 mg/dL (70-99) ROBERTO CAMPBELL MD Jan 24, 2019 09:37
--- NOTE | 2019-01-24 09:38 | PDOC ---
Dialysis Progress Note Dialysis Note Dialysis Note Seen on Hemodialysis, tolerating treatment OK so far Vitals on Hemodialysis: 98/ 46 58 afeb General Appearance: Awake: Alert Oriented x 3 Neck: No JVD or JVP Chest: CTA Brigido Heart: S1 S2 Abdomen - Soft NTND Extremities - + Edema ESRD : Dialysis as below F 180 NR 3.0 Hrs 3 K 2.5 Ca 140 Na 40 HC03 Qb 350 + Qd 500+ Heparin 0 Units Uf 2-3 Kgs or to dry weight as tolerated May give 25-50 gms of 25% Albumin if needed to maintain Hemodynamic stability Treatment plan reviewed and discussed with slurry tank tender Pt is still above EDW so will Uf to EDW as simeon. She c/o abd wall and left breast edema Vitals Vital Signs Vital Signs Date Time Temp Pulse Resp B/P (MAP) Pulse Ox O2 Delivery O2 Flow Rate FiO2 01/24/19 07:48 97 Room Air 01/24/19 07:00 97.3 71 18 127/56 (79) 97.3 Labs Last Labs Laboratory Tests Test 01/22/19 11:59 01/22/19 12:15 01/22/19 17:07 01/22/19 21:41 Glucose (Fingerstick) 111 mg/dL (70-99) 84 mg/dL (70-99) 105 mg/dL (70-99) White Blood Count 2.9 x10^3/uL (4.0-11.0) Red Blood Count 3.36 x10^6/uL (3.50-5.40) Hemoglobin 11.1 g/dL (12.0-15.5) Hematocrit 35.7 % (36.0-47.0) Mean Corpuscular Volume 106 fL (79-100) Mean Corpuscular Hemoglobin 33 pg (25-35) Mean Corpuscular Hemoglobin Concent 31 g/dL (31-37) Red Cell Distribution Width 19.4 % (11.5-14.5) Platelet Count 153 x10^3/uL (140-400) Neutrophils (%) (Auto) 55 % (31-73) Lymphocytes (%) (Auto) 31 % (24-48) Monocytes (%) (Auto) 10 % (0-9) Eosinophils (%) (Auto) 3 % (0-3) Basophils (%) (Auto) 1 % (0-3) Neutrophils # (Auto) 1.6 x10^3/uL (1.8-7.7) Lymphocytes # (Auto) 0.9 x10^3/uL (1.0-4.8) Monocytes # (Auto) 0.3 x10^3/uL (0.0-1.1) Eosinophils # (Auto) 0.1 x10^3/uL (0.0-0.7) Basophils # (Auto) 0.0 x10^3/uL (0.0-0.2) Hemoglobin A1c 5.1 % (4.8-5.6) Thyroid Stimulating Hormone (TSH) 4.467 uIU/mL (0.358-3.74) Test 01/23/19 07:32 01/23/19 11:45 01/23/19 18:06 01/23/19 20:57 Glucose (Fingerstick) 77 mg/dL (70-99) 108 mg/dL (70-99) 110 mg/dL (70-99) 108 mg/dL (70-99) Test 01/24/19 07:20 01/24/19 07:47 White Blood Count 2.5 x10^3/uL (4.0-11.0) Red Blood Count 3.15 x10^6/uL (3.50-5.40) Hemoglobin 10.3 g/dL (12.0-15.5) Hematocrit 32.7 % (36.0-47.0) Mean Corpuscular Volume 104 fL (79-100) Mean Corpuscular Hemoglobin 33 pg (25-35) Mean Corpuscular Hemoglobin Concent 31 g/dL (31-37) Red Cell Distribution Width 19.1 % (11.5-14.5) Platelet Count 154 x10^3/uL (140-400) Neutrophils (%) (Auto) 50 % (31-73) Lymphocytes (%) (Auto) 35 % (24-48) Monocytes (%) (Auto) 11 % (0-9) Eosinophils (%) (Auto) 3 % (0-3) Basophils (%) (Auto) 1 % (0-3) Neutrophils # (Auto) 1.2 x10^3/uL (1.8-7.7) Lymphocytes # (Auto) 0.9 x10^3/uL (1.0-4.8) Monocytes # (Auto) 0.3 x10^3/uL (0.0-1.1) Eosinophils # (Auto) 0.1 x10^3/uL (0.0-0.7) Basophils # (Auto) 0.0 x10^3/uL (0.0-0.2) Prothrombin Time 21.0 SEC (11.7-14.0) Prothromb Time International Ratio 1.8 (0.8-1.1) Sodium Level 140 mmol/L (136-145) Potassium Level 4.1 mmol/L (3.5-5.1) Chloride Level 103 mmol/L (98-107) Carbon Dioxide Level 28 mmol/L (21-32) Anion Gap 9 (6-14) Blood Urea Nitrogen 27 mg/dL (7-20) Creatinine 7.1 mg/dL (0.6-1.0) Estimated GFR (Cockcroft-Gault) 6.8 Glucose Level 123 mg/dL (70-99) Calcium Level 7.9 mg/dL (8.5-10.1) Glucose (Fingerstick) 115 mg/dL (70-99) Laboratory Tests Test 01/23/19 11:45 01/23/19 18:06 01/23/19 20:57 01/24/19 07:20 Glucose (Fingerstick) 108 mg/dL (70-99) 110 mg/dL (70-99) 108 mg/dL (70-99) White Blood Count 2.5 x10^3/uL (4.0-11.0) Red Blood Count 3.15 x10^6/uL (3.50-5.40) Hemoglobin 10.3 g/dL (12.0-15.5) Hematocrit 32.7 % (36.0-47.0) Mean Corpuscular Volume 104 fL (79-100) Mean Corpuscular Hemoglobin 33 pg (25-35) Mean Corpuscular Hemoglobin Concent 31 g/dL (31-37) Red Cell Distribution Width 19.1 % (11.5-14.5) Platelet Count 154 x10^3/uL (140-400) Neutrophils (%) (Auto) 50 % (31-73) Lymphocytes (%) (Auto) 35 % (24-48) Monocytes (%) (Auto) 11 % (0-9) Eosinophils (%) (Auto) 3 % (0-3) Basophils (%) (Auto) 1 % (0-3) Neutrophils # (Auto) 1.2 x10^3/uL (1.8-7.7) Lymphocytes # (Auto) 0.9 x10^3/uL (1.0-4.8) Monocytes # (Auto) 0.3 x10^3/uL (0.0-1.1) Eosinophils # (Auto) 0.1 x10^3/uL (0.0-0.7) Basophils # (Auto) 0.0 x10^3/uL (0.0-0.2) Prothrombin Time 21.0 SEC (11.7-14.0) Prothromb Time International Ratio 1.8 (0.8-1.1) Sodium Level 140 mmol/L (136-145) Potassium Level 4.1 mmol/L (3.5-5.1) Chloride Level 103 mmol/L (98-107) Carbon Dioxide Level 28 mmol/L (21-32) Anion Gap 9 (6-14) Blood Urea Nitrogen 27 mg/dL (7-20) Creatinine 7.1 mg/dL (0.6-1.0) Estimated GFR (Cockcroft-Gault) 6.8 Glucose Level 123 mg/dL (70-99) Calcium Level 7.9 mg/dL (8.5-10.1) Test 01/24/19 07:47 Glucose (Fingerstick) 115 mg/dL (70-99) Assessment Assessment Problems Medical Problems: (1) Back pain Status: Acute (2) Breast pain Status: Acute Plan Plan of Care Problems Medical Problems: (1) Back pain Status: Acute (2) Breast pain Status: Acute VIPIN RICHARD MD Jan 24, 2019 09:38
[2019-01-24 15:00] VITALS: BP 104/27
[2019-01-24] MEDS: WARFARIN 7.5 MG TABLET. PO SCH (17:18)
[2019-01-24] MEDS: HYDROcodone/APAP 7.5/325MG 1 TAB TABLET PO PRN (17:25)
[2019-01-24 19:36] VITALS: BP 123/44
[2019-01-24] MEDS: IBUPROFEN 400 MG TABLET. PO PRN (21:51)
[2019-01-24 23:33] VITALS: BP 116/46
[2019-01-25 03:39] VITALS: BP 105/38
[2019-01-25] MEDS: LEVOTHYROXINE 50 MCG TABLET PO SCH (05:01)
--- NOTE | 2019-01-25 06:12 | EKG ---
[facility] [address] [place] [address] Test Date: 2019-01-24 Test Time: 14:26:13 Pat Name: ROSE CAMPOS Department: Room: 654 1 Gender: F Software Program Manager: OSCAR : 1945 Requested By: ROBERTO CAMPBELL Order Number: [id number] Reading MD: Measurements Intervals [place] Rate: 61 P: 0 NH: 154 QRS: 88 QRSD: 80 T: 15 QT: 482 QTc: 487 Interpretive Statements SINUS RHYTHM LOW LIMB LEAD VOLTAGE PROLONGED QT NO SPECIFIC ECG ABNORMALITIES RI6.01 Compared to ECG 03/08/2014 07:31:52 Prolonged QT interval now present
[2019-01-25] MEDS: ALBUTEROL SULFATE 2.5 MG/3 ML NEBU. NEB SCH (07:16)
[2019-01-25 07:54] VITALS: BP 124/47
[2019-01-25] MEDS: INSULIN LISPRO 300 UNITS/3 ML INSULN.PEN. SQ SCH ×3 (08:00→16:43)
[2019-01-25] MEDS: SEVELAMER CARBONATE 800 MG TABLET. PO SCH ×3 (09:52→16:43)
[2019-01-25] MEDS: FLUTICASONE 50MCG/NASAL SPRAY 16GM BOTTLE. NS SCH (09:52)
[2019-01-25] MEDS: CINACALCET HCL 30 MG TABLET PO SCH (09:52)
[2019-01-25] MEDS: GABAPENTIN 300 MG CAPSULE. PO SCH ×2 (09:52→15:04)
[2019-01-25] MEDS: ASPIRIN ENTERIC COATED 81 MG TABLET.DR. PO SCH (09:52)
[2019-01-25] MEDS: FOLIC/VIT B COMP W-C (RENAL) TABLET. PO SCH (09:52)
[2019-01-25 11:31] VITALS: BP 102/40
--- NOTE | 2019-01-25 11:35 | PDOC ---
SUBJECTIVE ROS Stable , No SOB , No concerns voiced by RN OBJECTIVE Vital Signs Vital Signs Date Time Temp Pulse Resp B/P (MAP) Pulse Ox O2 Delivery O2 Flow Rate FiO2 01/25/19 07:54 98.1 61 18 124/47 (72) 99 Room Air 98.1 I & 0 Intake and Output 01/25/19 07:00 Intake Total 330 ml Output Total 0 ml Balance 330 ml Intake Oral 330 ml Output Urine Total 0 ml PHYSICAL EXAM Physical Exam GEN.: No apparent distress. HEENT: OM moist NECK: Supple. LUNGS: Clear to auscultation. HEART: RRR, S1, S2 present. ABDOMEN: Soft, Obese EXTREMITIES: No edema NEUROLOGIC: Grossly Normal SKIN: No Rash No Bonds Vital Signs Vital Signs Date Time Temp Pulse Resp B/P (MAP) Pulse Ox O2 Delivery O2 Flow Rate FiO2 01/22/19 12:11 93 Room Air 01/22/19 11:02 98.2 52 18 116/45 (68) 98.2 DIAGNOSIS/ASSESSMENT Assessment & Plan ESRD- On HD TTS - Dialyzed Fri and Friday Currently E-Lytes and Vol status stable, No indication for HD today Continue OP HD MWF if Dced Right breast and back pain: per PCP Asymptomatic Arrhythmia HTN: controlled DM2 PAD: clinically stable. COMMENT/RELEVANT DATA Meds Current Medications Medications (Trade) Dose Ordered Sig/Kenney Start Time Stop Time Status Last Admin Dose Admin Acetaminophen (Tylenol) 500 mg 1X PRN PRN 01/23/19 13:00 01/24/19 12:59 DC Acetaminophen/ Hydrocodone Bitart (Lortab 7.5/325) 1 tab PRN BID PRN 01/21/19 17:45 01/24/19 17:25 1 TAB Albumin Human 200 ml @ 200 mls/hr 1X PRN PRN 01/23/19 13:00 01/23/19 18:59 DC Albuterol Sulfate (Ventolin Neb Soln) 2.5 mg RTBID 01/21/19 20:00 01/25/19 07:16 2.5 MG Amlodipine Besylate (Norvasc) 5 mg DAILY 01/22/19 09:00 01/23/19 10:49 DC Aspirin (Ecotrin) 81 mg DAILY 01/22/19 09:00 01/25/19 09:52 81 MG Cinacalcet (Sensipar) 30 mg DAILY 01/22/19 09:00 01/25/19 09:52 30 MG Dextrose (Dextrose 50%-Water Syringe) 12.5 gm PRN Q15MIN PRN 01/23/19 11:00 Diphenhydramine HCl (Benadryl) 25 mg 1X PRN PRN 01/23/19 13:00 01/24/19 12:59 DC Famotidine (Pepcid) 20 mg Q48H 01/23/19 21:00 01/23/19 21:16 20 MG Fluticasone Propionate (Flonase) 2 spray DAILY 01/22/19 09:00 01/25/19 09:52 2 SPRAY Gabapentin (Neurontin) 300 mg TID 01/22/19 14:00 01/25/19 09:52 300 MG Hydralazine HCl (Apresoline Inj) 10 mg 1X ONCE 01/21/19 16:00 01/21/19 16:28 DC Hydromorphone HCl (Dilaudid) 0.5 mg PRN Q1HR PRN 01/21/19 14:15 01/23/19 15:59 DC 01/21/19 14:27 0.5 MG Ibuprofen (Motrin) 800 mg PRN Q6HRS PRN 01/21/19 17:45 01/24/19 21:51 800 MG Info (PHARMACY MONITORING -- do not chart) 1 each PRN DAILY PRN 01/24/19 09:30 Insulin Glargine (Lantus) 20 units QHS 01/21/19 21:00 01/23/19 10:49 DC Insulin Human Lispro (HumaLOG) 0-5 UNITS TIDWMEALS 01/23/19 12:00 Levothyroxine Sodium (Synthroid) 50 mcg DAILY06 01/22/19 06:00 01/25/19 05:01 50 MCG Midodrine (Proamatine) 5 mg PRN DAILY PRN 01/21/19 17:45 Morphine Sulfate (Morphine Sulfate) 2 mg PRN Q2HR PRN 01/21/19 15:30 01/22/19 15:29 DC Non-Formulary Medication (Albuterol Sulfate (Ventolin Hfa Inhaler)) 2 puff BID 01/21/19 21:00 UNV Ondansetron HCl (Zofran) 4 mg PRN Q8HRS PRN 01/21/19 15:30 01/22/19 15:29 DC Sevelamer Carbonate (Renvela) 800 mg TIDWMEALS 01/22/19 08:00 01/25/19 09:52 800 MG Sodium Chloride 1,000 ml @ 1,000 mls/hr Q1H PRN 01/24/19 09:16 01/24/19 15:15 DC Vitamin B Complex/ Vitamin C (Sandra-Donovan) 1 tab DAILY 01/22/19 09:00 01/25/19 09:52 1 TAB Warfarin Sodium (Coumadin Per Physician) 1 each PRN DAILY PRN 01/21/19 21:15 01/24/19 13:59 1 EACH Warfarin Sodium (Coumadin) 7.5 mg DAILY16 01/21/19 21:15 01/24/19 17:18 7.5 MG Lab Laboratory Tests Test 01/24/19 13:12 01/24/19 16:58 01/24/19 21:30 01/25/19 07:30 Glucose (Fingerstick) 109 mg/dL (70-99) 152 mg/dL (70-99) 186 mg/dL (70-99) 81 mg/dL (70-99) Results All relevant outside records, renal labs, imaging studies, telemetry/EKG's were reviewed. MARIO NOVOA MD Jan 25, 2019 11:35
--- NOTE | 2019-01-25 12:39 | CARD ---
MR#: [id number] Date of Study: 01/25/2019 Ordering Physician: NATALIE SOTO, Referring Physician: Lukasz FARRELL: Candy Bello RDCS APPROVED REPORT EXAM: Two-dimensional and M-mode echocardiogram with Doppler and color Doppler. Other Information Quality : Fair INDICATION Arrhythmia RISK FACTORS Obesity 2D DIMENSIONS Left Atrium(2D)4.2 (1.6-4.0cm)IVSd0.8 (0.7-1.1cm) Aortic Root(2D)3.1 (2.0-3.7cm)LVDd5.8 (3.9-5.9cm) LVOT Diameter2.3 (1.8-2.4cm)PWd0.8 (0.7-1.1cm) LVDs4.3 (2.5-4.0cm)FS (%) 25.9 % SV82.5 ml Aortic Valve AoV Peak David.128.7cm/sAoV VTI31.4cm AO Peak GR.6.6mmHgLVOT VTI 29.71cm AO Mean GR.4mmHgAVA (VTI)4.00cm2 Mitral Valve MV E Sofzlhfd782.5cm/sMV DECEL TZVV072ld MV A Mcrcsghk51.8cm/sE/A Ratio1.4 TDI Lateral E' P. V4.25cm/sMedial E' P. V4.18cm/s E/Lateral E'33.1E/Medial E'33.6 Tricuspid Valve TR P. Tldiwoed996ux/sRAP [id number] TR Peak Gr.58xnOqHRYY93deXp Pulmonary Vein S1 Qakpsvpa77.6cm/sS2 Ivehhfub93.18cm/s D2 Suikxmnx55.2cm/s LEFT VENTRICLE The left ventricle is normal size. There is normal left ventricular wall thickness. Left ventricle sy stolic function is low normal. The Ejection Fraction is 50-55%. There is normal LV segmental wall mot ion. Transmitral Doppler flow pattern is Grade I-abnormal relaxation pattern. RIGHT VENTRICLE The right ventricle is mildly dilated. The right ventricular systolic function is normal. ATRIA The left atrium is mildly dilated. The right atrium is mildly dilated. The interatrial septum is inta ct with no evidence for an atrial septal defect or patent foramen ovale as noted on 2-D or Doppler im aging. AORTIC VALVE The aortic valve is calcified but opens well. Doppler and Color Flow revealed no significant aortic r egurgitation. There is no significant aortic valvular stenosis. MITRAL VALVE The mitral valve is calcified but opens well. Mitral annular calcification is mild. There is no evide nce of mitral valve prolapse. There is no mitral valve stenosis. Doppler and Color-flow revealed trac e mitral regurgitation. TRICUSPID VALVE The tricuspid valve is normal in structure and function. Doppler and Color Flow revealed mild tricusp id regurgitation. The PA pressure was estimated at 44 mmHg. There is no tricuspid valve stenosis. PULMONIC VALVE The pulmonic valve is not well visualized. Doppler and Color Flow revealed no pulmonic valvular regur gitation. There is no pulmonic valvular stenosis. GREAT VESSELS The aortic root is normal in size. The ascending aorta is not well seen. The IVC was not visualized. PERICARDIAL EFFUSION There is no evidence of significant pericardial effusion. Critical Notification Critical Value: No <Conclusion> The left ventricle is normal size. Left ventricle systolic function is low normal. The Ejection Fraction is 50-55%. There is no significant aortic valvular stenosis. Doppler and Color Flow revealed no significant aortic regurgitation. Doppler and Color-flow revealed trace mitral regurgitation. Doppler and Color Flow revealed mild tricuspid regurgitation. The PA pressure was estimated at 44 mmHg. Signed by : Sean Brown MD Electronically Approved : 01/25/2019 12:39:17
[2019-01-25] MEDS ORDERED: GABA300C18 PO (13:00)
--- NOTE | 2019-01-25 15:36 | NUR ---
WILMER following pt. 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 Pt reported she does not have a house tyler but a family member is at home. SW left a voice mail to pt's son regarding this.
[2019-01-25 15:41] VITALS: BP 128/54
[2019-01-25] MEDS: WARFARIN 7.5 MG TABLET. PO SCH (16:43)
--- NOTE | 2019-01-25 17:01 | NUR ---
Pt discharged to home per her transportation service that usually takes her to dialysis. Discharge instructions and teaching completed with pt and son. Stressed importance of going to dialysis regularly. Discussed consequences of missing dialysis. Verbalized understanding.
--- NOTE | 2019-01-25 17:13 | PDOC3 ---
Discharge Summary [facility] Date of Admission: Jan 21, 2019 Discharge Date: Jan 25, 2019 Admitting Diagnosis intractable back pain ESRD lymphedema Final Diagnosis intractable back pain ESRD on dialysis lymphedema of right breast CONSULTS renal Procedures dialysis Brief Hospital Course Ms. Wilkerson is a 73 old [sex] who presented with intractable back pain that prevented her from going to dialysis and presented to the ER and required IV narcotics for pain, Positioning in hospital bed also helped. She missed dialysis on the day of admission but did her routine dialysis on Friday but was still fluid overloaded on Friday and required an extra dialysis. She was started on gabapentin during her stay due to leg pain neuropathy and this am was sedated from it so dose decreased from tid to just HS. 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 Her other chronic medical problems were addressed with continuing home meds. MRI of her lumbar spine did not show significant process although she was noted to have a hyperplastic red marrow signal, she was also noted to be mildly pancytopenic so this will be monitored as outpatient Patient History: Unknown Disposition home, continue Friday, , Sat dialysis CONDITION AT DISCHARGE: Improved, Stable Diet renal Scheduled Albuterol Sulfate (Ventolin Hfa Inhaler), 2 PUFF INH BID, (Reported) Amlodipine Besylate (Amlodipine Besylate), 5 MG PO DAILY, (Reported) Aspirin (Low Dose Aspirin Ec), 1 TAB PO DAILY, (Reported) Cinacalcet Hcl (Sensipar), 30 MG PO DAILY, (Reported) Fluticasone Propionate (Fluticasone Propionate Nasal [place]), 2 SPRAY NS DAILY, (Reported) Folic Acid/Vitamin B Comp W-C (Nephro-Donovan Tablet), 0.8 MG PO DAILY, (Reported) Gabapentin (Gabapentin), 300 MG PO QHS Insulin Aspart (Novolog), 10 UNIT SQ TIDACHC, (Reported) Insulin Glargine,Hum.rec.anlog (Lantus Solostar), 20 UNITS SQ QHS Levothyroxine Sodium (Levothyroxine Sodium), 50 MCG PO DAILY, (Reported) Ranitidine Hcl (Ranitidine Hcl), 300 MG PO BID, (Reported) Sevelamer Carbonate (Renvela), 800 MG PO TIDWMEALS, (Reported) Warfarin Sodium (Coumadin), 1 TAB PO DAILY, (Reported) Scheduled PRN Hydrocodone Bit/Acetaminophen (Hydrocodone-Apap 7.5-325 ), 1 TAB PO BID PRN for PAIN, (Reported) Ibuprofen (Ibuprofen), 800 MG PO PRN Q6HRS PRN for INFLAMMATION, (Reported) Midodrine Hcl (Midodrine Hcl), 5 MG PO PRN PRN for PER PROTOCOL, (Reported) Miscellaneous Medications Cholecalciferol (Vitamin D3) (Vitamin D3), 1,000 UNIT PO, (Reported) Follow Up 1-2 weeks Joanne HUFF MD Jan 25, 2019 17:13
== END 2019-01-25 17:00 | disposition home or self-care (01) | DRG 551 ==
LOC: ER 12:38 → 6 SOUTH 15:58
PROVIDERS: ADMIT Family Medicine; ATTEND Family Medicine
PROC: 5A1D70Z Performance of Urinary Filtration, Intermittent, Less than 6 Hours Per Day (ICD-10-PCS; principal; 2019-01-23)
PROC: 5A1D70Z Performance of Urinary Filtration, Intermittent, Less than 6 Hours Per Day (ICD-10-PCS; 2019-01-24)
DX: M54.5 Low back pain (principal); N18.6 End stage renal disease; I12.0 Hypertensive chronic kidney disease with stage 5 chronic kidney disease or end stage renal disease; Z68.42 Body mass index [BMI] 45.0-49.9, adult; D61.818 Other pancytopenia; E87.70 Fluid overload, unspecified; I89.0 Lymphedema, not elsewhere classified; D63.1 Anemia in chronic kidney disease; N60.31 Fibrosclerosis of right breast; I49.9 Cardiac arrhythmia, unspecified; E03.9 Hypothyroidism, unspecified; D75.89 Other specified diseases of blood and blood-forming organs; K21.9 Gastro-esophageal reflux disease without esophagitis; J44.9 Chronic obstructive pulmonary disease, unspecified; I48.91 Unspecified atrial fibrillation; I45.10 Unspecified right bundle-branch block; F41.9 Anxiety disorder, unspecified; E78.5 Hyperlipidemia, unspecified; G89.29 Other chronic pain; E11.42 Type 2 diabetes mellitus with diabetic polyneuropathy; E11.51 Type 2 diabetes mellitus with diabetic peripheral angiopathy without gangrene; E11.22 Type 2 diabetes mellitus with diabetic chronic kidney disease; M19.90 Unspecified osteoarthritis, unspecified site; E66.01 Morbid (severe) obesity due to excess calories; I25.10 Atherosclerotic heart disease of native coronary artery without angina pectoris; E78.00 Pure hypercholesterolemia, unspecified; Z85.42 Personal history of malignant neoplasm of other parts of uterus; Z99.3 Dependence on wheelchair; Z99.2 Dependence on renal dialysis; Z82.49 Family history of ischemic heart disease and other diseases of the circulatory system; Z90.710 Acquired absence of both cervix and uterus; Z91.15 Patient's noncompliance with renal dialysis
CPT/HCPCS: 36415; 72148; 80048; 80053; 80061; 82962; 83036; 84443; 84484; 85025; 85610; 87040; 93005; 93306; 93923; 94640; 94760; 96374; 96375; J1170; J1815; J2405; J7042; J7613; 99285-25

== ENCOUNTER 2019-03-31 10:00 | Inpatient (IN) | payer MEDICARE, OTHER ==
[~2019-03-31] VITALS: Ht 167.6 cm; Wt 153.8 kg
[~2019-03-31 10:00] MED LIST changes: -EZET10TA18 PO; +EZET10TA20 PO; +GABA300C18 PO
--- NOTE | 2019-03-31 10:18 | PHYS DOC ---
Past Medical History Past Medical History: Anemia, CAD, Cancer, Diabetes-Type II, High Cholesterol, Heart Disease, Hypertension, Renal Failure, Other Additional Past Medical Histor: uterine cancer Past Surgical History: Hysterectomy, Other Additional Past Surgical Histo: FISTULA- L upper arm Alcohol Use: None Drug Use: None Adult General Chief Complaint Chief Complaint: DIALYSIS PROBLEM HPI HPI Patient is a 73 year old female with history of hypertension, diabetes type 2, high cholesterol, CAD, end-stage kidney disease on dialysis Friday last dialyzed on Friday who presents to the ED today complaining of a dialysis fistula not working. Patient states yesterday when she went to dialysis she was informed her fistula is not working and was not dialyzed. Review of Systems Review of Systems Constitutional: Denies fever or chills [] Eyes: Denies change in visual acuity, redness, or eye pain [] HENT: Denies nasal congestion or sore throat [] Respiratory: Denies cough or shortness of breath [] Cardiovascular: No additional information not addressed in HPI [] GI: Denies abdominal pain, nausea, vomiting, bloody stools or diarrhea [] : Denies dysuria or hematuria [] Musculoskeletal: Denies back pain or joint pain [] Integument: Left upper extremity dialysis fistula not working Neurologic: Denies headache, focal weakness or sensory changes [] Endocrine: Denies polyuria or polydipsia [] All other systems were reviewed and found to be within normal limits, except as documented in this note. Current Medications Current Medications Current Medications Medications (Trade) Dose Ordered Sig/Kenney Start Time Stop Time Status Last Admin Dose Admin Acetaminophen (Tylenol) 650 mg PRN Q4HRS PRN 03/31/19 14:15 04/01/19 14:14 Ondansetron HCl (Zofran) 4 mg PRN Q8HRS PRN 03/31/19 14:15 04/01/19 14:14 Allergies Allergies Allergies Coded Allergies Type Severity Reaction Last Updated Verified No Known Medication Allergies Allergy Unknown 05/07/17 Yes Physical Exam Physical Exam Constitutional: Well developed, well nourished, no acute distress, non-toxic appearance. [] HENT: Normocephalic, atraumatic, bilateral external ears normal, oropharynx [address], no oral exudates, nose normal. [] Eyes: PERRLA, EOMI, conjunctiva normal, no discharge. [] Neck: Normal range of motion, no tenderness, supple, no stridor. [] Cardiovascular:Heart rate regular rhythm, no murmur [] Lungs & Thorax: Bilateral breath sounds clear to auscultation [] Abdomen: Bowel sounds normal, soft, no tenderness, no masses, no pulsatile masses. [] Skin: Warm, dry, left biceps region with the dialysis fistula with no thrill or bruit, +2 left radial pulse. Back: No tenderness, no CVA tenderness. [] Extremities: No tenderness, no cyanosis, no clubbing, ROM intact, no edema. [] Neurologic: Alert and oriented X 3, normal motor function, normal sensory function, no focal deficits noted. [] Psychologic: Affect normal, judgement normal, mood normal. [] Current Patient Data Vital Signs Vital Signs Date Time Temp Pulse Resp B/P (MAP) Pulse Ox O2 Delivery O2 Flow Rate FiO2 03/31/19 10:23 98.6 73 16 162/66 (98) 96 Room Air 98.6 Lab Values Laboratory Tests Test 03/31/19 11:13 White Blood Count 3.1 x10^3/uL (4.0-11.0) L Red Blood Count 3.22 x10^6/uL (3.50-5.40) L Hemoglobin 10.6 g/dL (12.0-15.5) L Hematocrit 34.4 % (36.0-47.0) L Mean Corpuscular Volume 107 fL (79-100) H Mean Corpuscular Hemoglobin 33 pg (25-35) Mean Corpuscular Hemoglobin Concent 31 g/dL (31-37) Red Cell Distribution Width 16.8 % (11.5-14.5) H Platelet Count 143 x10^3/uL (140-400) Neutrophils (%) (Auto) 57 % (31-73) Lymphocytes (%) (Auto) 28 % (24-48) Monocytes (%) (Auto) 11 % (0-9) H Eosinophils (%) (Auto) 2 % (0-3) Basophils (%) (Auto) 1 % (0-3) Neutrophils # (Auto) 1.8 x10^3/uL (1.8-7.7) Lymphocytes # (Auto) 0.9 x10^3/uL (1.0-4.8) L Monocytes # (Auto) 0.3 x10^3/uL (0.0-1.1) Eosinophils # (Auto) 0.1 x10^3/uL (0.0-0.7) Basophils # (Auto) 0.0 x10^3/uL (0.0-0.2) Sodium Level 142 mmol/L (136-145) Potassium Level 4.6 mmol/L (3.5-5.1) Chloride Level 109 mmol/L (98-107) H Carbon Dioxide Level 21 mmol/L (21-32) Anion Gap 12 (6-14) Blood Urea Nitrogen 34 mg/dL (7-20) H Creatinine 7.2 mg/dL (0.6-1.0) H Estimated GFR (Cockcroft-Gault) 6.7 BUN/Creatinine Ratio 5 (6-20) L Glucose Level 81 mg/dL (70-99) Calcium Level 9.1 mg/dL (8.5-10.1) Total Bilirubin 0.6 mg/dL (0.2-1.0) Aspartate Amino Transferase (AST) 17 U/L (15-37) Alanine Aminotransferase (ALT) 15 U/L (14-59) Alkaline Phosphatase 327 U/L (46-116) H Total Protein 6.9 g/dL (6.4-8.2) Albumin 3.6 g/dL (3.4-5.0) Albumin/Globulin Ratio 1.1 (1.0-1.7) Laboratory Tests 03/31/19 11:13 Laboratory Tests 03/31/19 11:13 EKG EKG [] Radiology/Procedures Radiology/Procedures []PROCEDURE: VENOUS UPPER EXTREMITY LEFT VENOUS UPPER EXTREMITY LEFT History: Left upper extremity dialysis fistula not working. Comparison: None. Procedure: Color flow Doppler, Doppler spectral analysis, and 2D images are obtained with and without compression evaluating the fistula and upper extremity vasculature Findings: Echogenic region within the left internal jugular vein, may represent eccentric thrombus, likely on a chronic basis. Evaluation of the left brachial arteriovenous fistula demonstrates nonopacification the level of the mid biceps. Additional tubular vascular structure within the left upper extremity appears occluded, likely related to prior graft occlusion. Left basilic vein is not identified, may relate to chronic thrombosis. IMPRESSION: 1. Occlusion of left upper extremity arteriovenous fistula. 2. Partial left IJ thrombus, likely on a chronic basis. 3. Left basilic vein is not identified, may relate to chronic thrombosis. FOR INTERNAL CODING PURPOSES Critical result: Findings discussed with [place] JOSE DAVID at 03/31/2019 12:48 PM. RESULT CODE: (C) Electronically signed by: Brandon Reese DO (03/31/2019 12:49 PM) [id number] DICTATED and SIGNED BY: BRANDON REESE DO DATE: 03/31/19 1249 Course & Med Decision Making Course & Med Decision Making Pertinent Labs and Imaging studies reviewed. (See chart for details) This is a 73-year-old female patient on dialysis presented to the ED today to be seen because her dialysis fistula has not been working since yesterday. She missed dialysis yesterday. Left upper extremity dialysis fistula no bruit or thrill. CBC no acute findings, CMP with normal potassium. Left upper extremity venous Doppler occlusion of the left AV fistula. Partial left IJ thrombus, likely on a chronic basis. Left basilic vein is not identifi ed, may relate to chronic thrombosis. [address] Moore who accepted patient for admission, he requested we speak to vascular surgery regarding patient's fistula. [address] Tejada vascular surgeon who stated we need to talk to interventional radiology Spoke to Dr. Trotter interventional radiologist who stated they can fix the AV fistula as an outpatient or if patient needs dialysis we can admit patient and they will try and fix it as an inpatient [address] Dobbins who will f/u with patient per nephrology. Stewart Disclaimer Dragon Disclaimer This electronic medical record was generated, in whole or in part, using a voice recognition dictation system. Departure Departure Impression: Primary Impression: ESRD (end stage renal disease) on dialysis Additional Impression: AV fistula occlusion Disposition: 01 HOME, SELF-CARE Condition: STABLE Referrals: Joanne MOORE MD (PCP) follow up as soon as you can Problem Qualifiers Additional Impression: AV fistula occlusion Encounter type: initial encounter Qualified Codes: T82.898A - Other specified complication of vascular prosthetic devices, implants and grafts, initial encounter FAHAD TAYLOR APRN Mar 31, 2019 10:18
[2019-03-31 11:23] LABS: BASO % 1 % (0-3); EOS # 0.1 x10^3/uL (0.0-0.7); EOS % 2 % (0-3); HEMATOCRIT 34.4 % (36.0-47.0); HEMOGLOBIN 10.6 g/dL (12.0-15.5); LYMPH # 0.9 x10^3/uL (1.0-4.8); LYMPH % 28 % (24-48); MEAN CORPUSCULAR HEMOGLOBIN 33 pg (25-35); MEAN CORPUSCULAR HGB CONC 31 g/dL (31-37); MEAN CORPUSCULAR VOLUME 107 fL (79-100); MONO # 0.3 x10^3/uL (0.0-1.1); MONO % 11 % (0-9); NEUT # 1.8 x10^3/uL (1.8-7.7); NEUT % 57 % (31-73); PLATELET COUNT 143 x10^3/uL (140-400); RED BLOOD COUNT 3.22 x10^6/uL (3.50-5.40); RED CELL DISTRIBUTION WIDTH 16.8 % (11.5-14.5); WHITE BLOOD COUNT 3.1 x10^3/uL (4.0-11.0)
[2019-03-31 11:39] LABS: CALCIUM 9.1 mg/dL (8.5-10.1); CREATININE 7.2 mg/dL (0.6-1.0); GFR 6.7; POTASSIUM 4.6 mmol/L (3.5-5.1)
[2019-03-31 11:47] LABS: ALBUMIN 3.6 g/dL (3.4-5.0); ALBUMIN/GLOBULIN RATIO 1.1 (1.0-1.7); TOTAL BILIRUBIN 0.6 mg/dL (0.2-1.0); TOTAL PROTEIN 6.9 g/dL (6.4-8.2)
--- NOTE | 2019-03-31 12:52 | RAD ---
VENOUS UPPER EXTREMITY LEFT History: Left upper extremity dialysis fistula not working. Comparison: None. Procedure: Color flow Doppler, Doppler spectral analysis, and 2D images are obtained with and without compression evaluating the fistula and upper extremity vasculature Findings: Echogenic region within the left internal jugular vein, may represent eccentric thrombus, likely on a chronic basis. Evaluation of the left brachial arteriovenous fistula demonstrates nonopacification the level of the mid biceps. Additional tubular vascular structure within the left upper extremity appears occluded, likely related to prior graft occlusion. Left basilic vein is not identified, may relate to chronic thrombosis. IMPRESSION: 1. Occlusion of left upper extremity arteriovenous fistula. 2. Partial left IJ thrombus, likely on a chronic basis. 3. Left basilic vein is not identified, may relate to chronic thrombosis. FOR INTERNAL CODING PURPOSES Critical result: Findings discussed with Cheo MAIN at 03/31/2019 12:48 PM. RESULT CODE: (C) Electronically signed by: Brandon Gregory DO (03/31/2019 12:49 PM) [id number]
[2019-03-31] MEDS ORDERED: ONDANSETRON PF 4 MG/2 ML VIAL. IV PRN (14:15)
[2019-03-31] MEDS ORDERED: ACETAMINOPHEN 325 MG TABLET. PO PRN (14:15)
--- NOTE | 2019-03-31 15:21 | PDOC1 ---
History and Physical Date of Admission Date of Admission 03/31/19 Identification/Chief Complaint Chief Complaint dialysis shunt occluded Source Source: Patient History of Present Illness History of Present Illness She went to dialysis yesterday but her shunt was occluded so she came to ER today and is admitted, she has an appt tomorrow with IR but apparently had rubin sportation today and not tomorrow, her labs are not at dangerous levels Past Medical History Cardiovascular: HTN, Other Pulmonary: Asthma GI: GERD Heme/Onc: Anemia NOS, Cancer Psych: Anxiety Renal/: Chronic renal failure Endocrine: Diabetes, Hypothyroidism Past Surgical History Past Surgical History: Tonsillectomy, Hysterectomy, Other Family History Family History: Hypertension, Kidney Disease Social History ALCOHOL: none Drugs: None Current Problem List Problem List Problems Medical Problems: (1) AV fistula occlusion Status: Acute (2) ESRD (end stage renal disease) on dialysis Status: Acute Current Medications Current Medications Current Medications Medications (Trade) Dose Ordered Sig/Kenney Start Time Stop Time Status Last Admin Dose Admin Acetaminophen (Tylenol) 650 mg PRN Q4HRS PRN 03/31/19 14:15 04/01/19 14:14 Ondansetron HCl (Zofran) 4 mg PRN Q8HRS PRN 03/31/19 14:15 04/01/19 14:14 Allergies Allergies Allergies Coded Allergies Type Severity Reaction Last Updated Verified No Known Medication Allergies Allergy Unknown 05/07/17 Yes ROS Review of System CONSTITUTIONAL: No fever or chills EYES: No recent changes SKIN: No rash or itching CARDIOVASCULAR: No chest pain, syncope, palpitations, or edema RESPIRATORY: No SOB or cough GASTROINTESTINAL: No nausea, vomiting or abdominal pain NEUROLOGICAL: No headaches or weakness ENDOCRINE: No cold or heat intolerance GENITOURINARY: No significant urine output MUSCULOSKELETAL: chronic back pain & joint pain LYMPHATICS: improved lymphedema or right chest wall and breast PSYCHIATRIC: No anxiety or depression Physical Exam Physical Exam GEN.: No apparent distress. Alert and oriented. HEENT: Head is normocephalic, atraumatic NECK: Supple. LUNGS: Clear to auscultation. HEART: RRR, S1, S2 present. Peripheral pulses intact ABDOMEN: Soft, obese, nontender. Positive bowel sounds. EXTREMITIES: Without any cyanosis, some anasarca of inner upper thighs but none of abdominal wall and minimal edema of right breast, left upper and lower arm AV fistulas occluded. NEUROLOGIC: Normal speech, normal tone PSYCHIATRIC: Normal affect, normal mood. SKIN: No ulcerations Vitals Vitals Vital Signs Date Time Temp Pulse Resp B/P (MAP) Pulse Ox O2 Delivery O2 Flow Rate FiO2 03/31/19 10:23 98.6 73 16 162/66 (98) 96 Room Air 98.6 Labs Labs Laboratory Tests Test 03/31/19 11:13 White Blood Count 3.1 x10^3/uL (4.0-11.0) Red Blood Count 3.22 x10^6/uL (3.50-5.40) Hemoglobin 10.6 g/dL (12.0-15.5) Hematocrit 34.4 % (36.0-47.0) Mean Corpuscular Volume 107 fL (79-100) Mean Corpuscular Hemoglobin 33 pg (25-35) Mean Corpuscular Hemoglobin Concent 31 g/dL (31-37) Red Cell Distribution Width 16.8 % (11.5-14.5) Platelet Count 143 x10^3/uL (140-400) Neutrophils (%) (Auto) 57 % (31-73) Lymphocytes (%) (Auto) 28 % (24-48) Monocytes (%) (Auto) 11 % (0-9) Eosinophils (%) (Auto) 2 % (0-3) Basophils (%) (Auto) 1 % (0-3) Neutrophils # (Auto) 1.8 x10^3/uL (1.8-7.7) Lymphocytes # (Auto) 0.9 x10^3/uL (1.0-4.8) Monocytes # (Auto) 0.3 x10^3/uL (0.0-1.1) Eosinophils # (Auto) 0.1 x10^3/uL (0.0-0.7) Basophils # (Auto) 0.0 x10^3/uL (0.0-0.2) Sodium Level 142 mmol/L (136-145) Potassium Level 4.6 mmol/L (3.5-5.1) Chloride Level 109 mmol/L (98-107) Carbon Dioxide Level 21 mmol/L (21-32) Anion Gap 12 (6-14) Blood Urea Nitrogen 34 mg/dL (7-20) Creatinine 7.2 mg/dL (0.6-1.0) Estimated GFR (Cockcroft-Gault) 6.7 BUN/Creatinine Ratio 5 (6-20) Glucose Level 81 mg/dL (70-99) Calcium Level 9.1 mg/dL (8.5-10.1) Total Bilirubin 0.6 mg/dL (0.2-1.0) Aspartate Amino Transf (AST/SGOT) 17 U/L (15-37) Alanine Aminotransferase (ALT/SGPT) 15 U/L (14-59) Alkaline Phosphatase 327 U/L (46-116) Total Protein 6.9 g/dL (6.4-8.2) Albumin 3.6 g/dL (3.4-5.0) Albumin/Globulin Ratio 1.1 (1.0-1.7) Laboratory Tests Test 03/31/19 11:13 White Blood Count 3.1 x10^3/uL (4.0-11.0) Red Blood Count 3.22 x10^6/uL (3.50-5.40) Hemoglobin 10.6 g/dL (12.0-15.5) Hematocrit 34.4 % (36.0-47.0) Mean Corpuscular Volume 107 fL (79-100) Mean Corpuscular Hemoglobin 33 pg (25-35) Mean Corpuscular Hemoglobin Concent 31 g/dL (31-37) Red Cell Distribution Width 16.8 % (11.5-14.5) Platelet Count 143 x10^3/uL (140-400) Neutrophils (%) (Auto) 57 % (31-73) Lymphocytes (%) (Auto) 28 % (24-48) Monocytes (%) (Auto) 11 % (0-9) Eosinophils (%) (Auto) 2 % (0-3) Basophils (%) (Auto) 1 % (0-3) Neutrophils # (Auto) 1.8 x10^3/uL (1.8-7.7) Lymphocytes # (Auto) 0.9 x10^3/uL (1.0-4.8) Monocytes # (Auto) 0.3 x10^3/uL (0.0-1.1) Eosinophils # (Auto) 0.1 x10^3/uL (0.0-0.7) Basophils # (Auto) 0.0 x10^3/uL (0.0-0.2) Sodium Level 142 mmol/L (136-145) Potassium Level 4.6 mmol/L (3.5-5.1) Chloride Level 109 mmol/L (98-107) Carbon Dioxide Level 21 mmol/L (21-32) Anion Gap 12 (6-14) Blood Urea Nitrogen 34 mg/dL (7-20) Creatinine 7.2 mg/dL (0.6-1.0) Estimated GFR (Cockcroft-Gault) 6.7 BUN/Creatinine Ratio 5 (6-20) Glucose Level 81 mg/dL (70-99) Calcium Level 9.1 mg/dL (8.5-10.1) Total Bilirubin 0.6 mg/dL (0.2-1.0) Aspartate Amino Transf (AST/SGOT) 17 U/L (15-37) Alanine Aminotransferase (ALT/SGPT) 15 U/L (14-59) Alkaline Phosphatase 327 U/L (46-116) Total Protein 6.9 g/dL (6.4-8.2) Albumin 3.6 g/dL (3.4-5.0) Albumin/Globulin Ratio 1.1 (1.0-1.7) VTE Prophylaxis Ordered VTE Prophylaxis Devices: Yes VTE Pharmacological Prophylaxi: Yes Assessment/Plan Assessment/Plan ESRD - occluded dialysis access, IR and renal consults, stable at this time Joanne HUFF MD Mar 31, 2019 15:21
[2019-03-31 15:30] VITALS: BP 130/46
[2019-03-31] MEDS ORDERED: MIDODRINE 5 MG TABLET PO PRN (15:30)
[2019-03-31] MEDS ORDERED: IBUPROFEN 400 MG TABLET. PO PRN (15:30)
[2019-03-31] MEDS ORDERED: HYDROcodone/APAP 7.5/325MG 1 TAB TABLET PO PRN (15:30)
[2019-03-31 15:58] LABS: PROTHROMBIN TIME PATIENT 14.8 SEC (11.7-14.0)
[2019-03-31] MEDS ORDERED: WARFARIN 7.5 MG TABLET. PO SCH (17:00)
[2019-03-31] MEDS: INSULIN LISPRO 300 UNITS/3 ML VIAL. SQ SCH (17:00)
[2019-03-31] MEDS: CINACALCET HCL 30 MG TABLET PO SCH (18:56)
[2019-03-31] MEDS: FOLIC/VIT B COMP W-C (RENAL) TABLET. PO SCH (18:56)
[2019-03-31] MEDS: ASPIRIN ENTERIC COATED 81 MG TABLET.DR. PO SCH (18:56)
[2019-03-31] MEDS: SEVELAMER CARBONATE 800 MG TABLET. PO SCH (18:56)
[2019-03-31] MEDS: amLODIPine BESYLATE 5 MG TABLET PO SCH (18:57)
[2019-03-31 19:00] VITALS: BP 143/58
[2019-03-31] MEDS: ALBUTEROL SULFATE 2.5 MG/3 ML NEBU. NEB SCH (20:30)
[2019-03-31] MEDS ORDERED: INSULIN GLARGINE SYRINGE. SQ SCH (21:00)
[2019-03-31] MEDS ORDERED: NON FORMULARY ITEM (Albuterol Sulfate (Ventolin Hfa Inhaler) 2 PUFF) INH SCH (21:00)
[2019-03-31] MEDS: FAMOTIDINE 20 MG TABLET. PO SCH (21:01)
[2019-03-31] MEDS: FLUTICASONE 50MCG/NASAL SPRAY 16GM BOTTLE. NS SCH (21:02)
[2019-03-31] MEDS: GABAPENTIN 300 MG CAPSULE. PO SCH (21:02)
[2019-03-31 23:00] VITALS: BP 106/37
[2019-04-01 03:00] VITALS: BP 116/36
[2019-04-01 05:08] LABS: CALCIUM 8.3 mg/dL (8.5-10.1); GFR 5.9; POTASSIUM 4.6 mmol/L (3.5-5.1)
[2019-04-01 07:00] VITALS: BP 90/34
[2019-04-01] MEDS: LEVOTHYROXINE 50 MCG TABLET PO SCH (07:12)
[2019-04-01] MEDS: ALBUTEROL SULFATE 2.5 MG/3 ML NEBU. NEB SCH ×2 (07:32→19:29)
[2019-04-01] MEDS: SEVELAMER CARBONATE 800 MG TABLET. PO SCH ×3 (08:00→17:00)
[2019-04-01] MEDS: INSULIN LISPRO 300 UNITS/3 ML VIAL. SQ SCH ×3 (08:00→17:00)
[2019-04-01] MEDS: FLUTICASONE 50MCG/NASAL SPRAY 16GM BOTTLE. NS SCH (08:25)
[2019-04-01] MEDS ORDERED: GLUCAGON,HUMAN RECOMBINANT 1 MG/ML VIAL. IM ONE (08:30)
[2019-04-01] MEDS: CINACALCET HCL 30 MG TABLET PO SCH (09:00)
[2019-04-01] MEDS: amLODIPine BESYLATE 5 MG TABLET PO SCH (09:00)
[2019-04-01] MEDS: ASPIRIN ENTERIC COATED 81 MG TABLET.DR. PO SCH (09:00)
[2019-04-01] MEDS: FOLIC/VIT B COMP W-C (RENAL) TABLET. PO SCH (09:00)
[2019-04-01 11:00] VITALS: BP 92/38
[2019-04-01] MEDS ORDERED: IV DEXTROSE 5% 250 ML BAG. IV PRN (11:00)
[2019-04-01] MEDS ORDERED: DEXTROSE 50% 25 GM / 50ML DISP.SYRIN. IV PRN (11:00)
[2019-04-01] MEDS ORDERED: IODIXANOL 320 MG/ML 100 ML VIAL. ONE (13:11)
--- NOTE | 2019-04-01 13:13 | PDOC2 ---
CONSULT Date of Consult Date of Consult DATE: 04/01/19 TIME: 13:02 Reason for Consult Reason for Consult: ESRD Identification/Chief Complaint Chief Complaint No complaints Source Source: Chart review History of Present Illness Reason for Visit: Pt is a 73 year old AA female with history of hypertension, diabetes type 2, CAD, end-stage kidney disease on dialysis Friday last dialyzed on Friday who presents to the ED on 03/31 complaining of a dialysis fistula not working. She was already scheduled for intervention by IR as OP for 04/01. Pt decided to go to the ER and was admitted . She denies any complaints, No N/V/D. No SOB or CP . No change in appetite She has been on HD for many years and has the same AV access for 7 years . Past Medical History Cardiovascular: HTN, Other Pulmonary: Asthma GI: GERD Heme/Onc: Anemia NOS, Cancer Psych: Anxiety Musculoskeletal: Osteoarthritis Renal/: Chronic renal failure Endocrine: Diabetes, Hypothyroidism Past Surgical History Past Surgical History: Tonsillectomy, Hysterectomy, Other Family History Family History: Hypertension, Kidney Disease Social History ALCOHOL: none Drugs: None Lives: Alone Current Problem List Problem List Problems Medical Problems: (1) AV fistula occlusion Status: Acute (2) ESRD (end stage renal disease) on dialysis Status: Acute Current Medications Current Medications Current Medications Ondansetron HCl (Zofran) 4 mg PRN Q8HRS PRN IV NAUSEA/VOMITING; Start 03/31/19 at 14:15; Stop 04/01/19 at 14:14 Acetaminophen (Tylenol) 650 mg PRN Q4HRS PRN PO FEVER; Start 03/31/19 at 14:15; Stop 04/01/19 at 14:14 Amlodipine Besylate (Norvasc) 5 mg DAILY PO Last administered on 03/31/19at 18:58; Start 03/31/19 at 16:00 Aspirin (Ecotrin) 81 mg DAILY PO Last administered on 03/31/19at 18:58; Start 03/31/19 at 16:00 Cinacalcet (Sensipar) 30 mg DAILY PO Last administered on 03/31/19at 18:58; Start 03/31/19 at 16:00 Fluticasone Propionate (Flonase) 2 spray DAILY NS Last administered on 04/01/19at 08:25; Start 03/31/19 at 16:00 Vitamin B Complex/ Vitamin C (Sandra-Donovan) 1 tab DAILY PO Last administered on 03/31/19at 18:58; Start 03/31/19 at 16:00 Gabapentin (Neurontin) 300 mg QHS PO Last administered on 03/31/19at 21:02; Start 03/31/19 at 21:00 Acetaminophen/ Hydrocodone Bitart (Lortab 7.5/325) 1 tab PRN BID PRN PO PAIN; Start 03/31/19 at 15:30 Levothyroxine Sodium (Synthroid) 50 mcg DAILY06 PO Last administered on 04/01/19at 07:12; Start 04/01/19 at 06:00 Midodrine (Proamatine) 5 mg PRN DAILY PRN PO HYPOTENSION; Start 03/31/19 at 15:30 Sevelamer Carbonate (Renvela) 800 mg TIDWMEALS PO Last administered on 03/31/19at 18:58; Start 03/31/19 at 17:00 Warfarin Sodium (Coumadin) 7.5 mg DAILY16 PO ; Start 03/31/19 at 17:00; Stop 03/31/19 at 20:30; Status DC Non-Formulary Medication (Albuterol Sulfate (Ventolin Hfa Inhaler)) 2 puff BID INH ; Start 03/31/19 at 21:00; Status UNV Ibuprofen (Motrin) 800 mg PRN Q6HRS PRN PO INFLAMMATION; Start 03/31/19 at 15:30 Insulin Human Lispro (HumaLOG) 10 units TIDWMEALS SQ ; Start 03/31/19 at 17:00; Stop 04/01/19 at 11:01; Status DC Insulin Glargine (Lantus Syringe) 20 unit QHS SQ ; Start 03/31/19 at 21:00; Stop 04/01/19 at 11:01; Status DC Famotidine (Pepcid) 20 mg QHS PO Last administered on 03/31/19at 21:02; Start 03/31/19 at 21:00 Albuterol Sulfate (Ventolin Neb Soln) 2.5 mg BID NEB Last administered on 04/01/19at 07:32; Start 03/31/19 at 21:00 Warfarin Sodium (Coumadin Per Physician) 1 each PRN DAILY PRN MC SEE COMMENTS; Start 03/31/19 at 15:45 Warfarin Sodium (Coumadin - No Dose Today) 1 each 1X WARF ONCE MC Last administered on 03/31/19at 20:31; Start 03/31/19 at 21:00; Stop 03/31/19 at 21:01; Status DC Glucagon (Glucagen) 1 mg 1X ONCE IM Last administered on 04/01/19at 08:22; Start 04/01/19 at 08:30; Stop 04/01/19 at 08:31; Status DC Insulin Human Lispro (HumaLOG) 0-5 UNITS TIDWMEALS SQ ; Start 04/01/19 at 12:00 Dextrose (Dextrose 50%-Water Syringe) 12.5 gm PRN Q15MIN PRN IV SEE COMMENTS; Start 04/01/19 at 11:00 Dextrose 250 ml PRN Q15MIN PRN IV SEE COMMENTS; Start 04/01/19 at 11:00 Active Scripts Active Gabapentin 300 Mg Capsule 300 Mg PO QHS 30 Days Lantus Solostar (Insulin Glargine,Hum.rec.anlog) 300 Units/3 Ml Insuln.pen 20 Units SQ QHS Reported Coumadin (Warfarin Sodium) 7.5 Mg Tablet 1 Tab PO DAILY Hydrocodone-Apap 7.5-325 (Hydrocodone Bit/Acetaminophen) 1 Each Tablet 1 Tab PO BID PRN Fluticasone Propionate Nasal [place] (Fluticasone Propionate) 16 Gm [place].susp 2 [place] NS DAILY Renvela (Sevelamer Carbonate) 800 Mg Tablet 800 Mg PO TIDWMEALS Ibuprofen 800 Mg Tablet 800 Mg PO PRN Q6HRS PRN Vitamin D3 (Cholecalciferol (Vitamin D3)) 2,000 Unit Tab.chew 1,000 Unit PO Ventolin Hfa Inhaler (Albuterol Sulfate) 18 Gm Hfa.aer.ad 2 Puff INH BID Amlodipine Besylate 5 Mg Tablet 5 Mg PO DAILY Nephro-Donovan Tablet (Folic Acid/Vitamin B Comp W-C) 0.8 Mg Tablet 0.8 Mg PO DAILY Sensipar (Cinacalcet Hcl) 30 Mg Tablet 30 Mg PO DAILY Low Dose Aspirin Ec (Aspirin) 81 Mg Tablet.dr 1 Tab PO DAILY Midodrine Hcl 5 Mg Tablet 5 Mg PO PRN PRN Levothyroxine Sodium 50 Mcg Tablet 50 Mcg PO DAILY Ranitidine Hcl 300 Mg Capsule 300 Mg PO BID Novolog (Insulin Aspart) 100 Unit/1 Ml Cartridge 10 Unit SQ TIDACHC Allergies Allergies: Coded Allergies: No Known Medication Allergies (Verified Allergy, Unknown, 05/07/17) ROS Review of System Per HPI Physical Exam Physical Exam GEN: NAD HEEN- OM moist NECK: Supple CVS: RRR RESP: CTA, No use of Acc. Muscle Use GI: Soft, NT : No CVA tenderness, No Suprapubic Tenderness, No Bonds NEURO- Grossly normal, No Asterexis SKIN NO Rash Vital Signs Vital Signs Date Time Temp Pulse Resp B/P (MAP) Pulse Ox O2 Delivery O2 Flow Rate FiO2 04/01/19 12:58 90/34 04/01/19 11:00 98.0 68 18 95 Room Air 98.0 Assessment & Plan ESRD - On HD TTS Last HD was on Friday Clinically euvolemic, asymptomatic, E-Lytes and acid base stable Scheduled for Fistulogram/intervention today , doesn't have any other access Currently no emergent indication for Dialysis - dialyses non emergent after procedure done by IR Access- Left upper extremity venous Doppler occlusion of the left AV fistula. Partial left IJ thrombus, likely on a chronic basis. Scheduled for Fistulogram/Intervention with IR today DM- per primary HTN- stable Anemia - Hgb > 10 No indication for FRED Discussed with Pt and RN Labs Labs Laboratory Tests Test 03/31/19 11:13 03/31/19 17:05 03/31/19 21:23 04/01/19 04:25 White Blood Count 3.1 x10^3/uL (4.0-11.0) Red Blood Count 3.22 x10^6/uL (3.50-5.40) Hemoglobin 10.6 g/dL (12.0-15.5) Hematocrit 34.4 % (36.0-47.0) Mean Corpuscular Volume 107 fL (79-100) Mean Corpuscular Hemoglobin 33 pg (25-35) Mean Corpuscular Hemoglobin Concent 31 g/dL (31-37) Red Cell Distribution Width 16.8 % (11.5-14.5) Platelet Count 143 x10^3/uL (140-400) Neutrophils (%) (Auto) 57 % (31-73) Lymphocytes (%) (Auto) 28 % (24-48) Monocytes (%) (Auto) 11 % (0-9) Eosinophils (%) (Auto) 2 % (0-3) Basophils (%) (Auto) 1 % (0-3) Neutrophils # (Auto) 1.8 x10^3/uL (1.8-7.7) Lymphocytes # (Auto) 0.9 x10^3/uL (1.0-4.8) Monocytes # (Auto) 0.3 x10^3/uL (0.0-1.1) Eosinophils # (Auto) 0.1 x10^3/uL (0.0-0.7) Basophils # (Auto) 0.0 x10^3/uL (0.0-0.2) Prothrombin Time 14.8 SEC (11.7-14.0) Prothromb Time International Ratio 1.2 (0.8-1.1) Sodium Level 142 mmol/L (136-145) 141 mmol/L (136-145) Potassium Level 4.6 mmol/L (3.5-5.1) 4.6 mmol/L (3.5-5.1) Chloride Level 109 mmol/L (98-107) 110 mmol/L (98-107) Carbon Dioxide Level 21 mmol/L (21-32) 19 mmol/L (21-32) Anion Gap 12 (6-14) 12 (6-14) Blood Urea Nitrogen 34 mg/dL (7-20) 39 mg/dL (7-20) Creatinine 7.2 mg/dL (0.6-1.0) 8.0 mg/dL (0.6-1.0) Estimated GFR (Cockcroft-Gault) 6.7 5.9 BUN/Creatinine Ratio 5 (6-20) Glucose Level 81 mg/dL (70-99) 83 mg/dL (70-99) Calcium Level 9.1 mg/dL (8.5-10.1) 8.3 mg/dL (8.5-10.1) Total Bilirubin 0.6 mg/dL (0.2-1.0) Aspartate Amino Transf (AST/SGOT) 17 U/L (15-37) Alanine Aminotransferase (ALT/SGPT) 15 U/L (14-59) Alkaline Phosphatase 327 U/L (46-116) Total Protein 6.9 g/dL (6.4-8.2) Albumin 3.6 g/dL (3.4-5.0) Albumin/Globulin Ratio 1.1 (1.0-1.7) Glucose (Fingerstick) 74 mg/dL (70-99) 113 mg/dL (70-99) Test 04/01/19 07:53 04/01/19 09:14 04/01/19 11:14 Glucose (Fingerstick) 58 mg/dL (70-99) 96 mg/dL (70-99) 79 mg/dL (70-99) Laboratory Tests Test 03/31/19 17:05 03/31/19 21:23 04/01/19 04:25 04/01/19 07:53 Glucose (Fingerstick) 74 mg/dL (70-99) 113 mg/dL (70-99) 58 mg/dL (70-99) Sodium Level 141 mmol/L (136-145) Potassium Level 4.6 mmol/L (3.5-5.1) Chloride Level 110 mmol/L (98-107) Carbon Dioxide Level 19 mmol/L (21-32) Anion Gap 12 (6-14) Blood Urea Nitrogen 39 mg/dL (7-20) Creatinine 8.0 mg/dL (0.6-1.0) Estimated GFR (Cockcroft-Gault) 5.9 Glucose Level 83 mg/dL (70-99) Calcium Level 8.3 mg/dL (8.5-10.1) Test 04/01/19 09:14 04/01/19 11:14 Glucose (Fingerstick) 96 mg/dL (70-99) 79 mg/dL (70-99) Review All relevant outside records, renal labs, imaging studies, telemetry/EKG's were reviewed. MARIO NOVOA MD Apr 01, 2019 13:12
[2019-04-01] MEDS ORDERED: LIDOCAINE WITH 8.4% SOD BICARB 3 ML DISP.SYRIN. ONE (13:16)
[2019-04-01] MEDS ORDERED: MIDAZOLAM HCL/PF 2 MG/2 ML VIAL. ONE (13:27)
[2019-04-01] MEDS ORDERED: fentaNYL PF VIAL 100 MCG/2 ML VIAL ONE ×2 (13:27→14:31)
[2019-04-01] MEDS ORDERED: ALTEPLASE 2 MG VIAL INT CAT ONE (14:00)
[2019-04-01] MEDS ORDERED: ALTEPLASE 2MG VIAL 10 MG in IV NORMAL SALINE 100ML 100 ML IV ONE (14:00)
[2019-04-01] MEDS ORDERED: HEPARIN for IV BOLUS 10,000 UNIT/10 ML VIAL. ONE (14:08)
[2019-04-01] MEDS ORDERED: IV NORMAL SALINE 1000ML BAG 1,000 ML IV PRN ×2 (14:16)
[2019-04-01] MEDS ORDERED: DIALYSIS PATIENT. MC PRN (14:30)
[2019-04-01] MEDS ORDERED: diphenhydrAMINE 50 MG/ML VIAL IV PRN ×2 (14:30)
[2019-04-01] MEDS ORDERED: diphenhydrAMINE 50 MG/ML VIAL ONE (14:31)
[2019-04-01] MEDS ORDERED: diphenhydrAMINE 50 MG/ML VIAL IVP ONE (15:15)
[2019-04-01] MEDS ORDERED: fentaNYL PF VIAL 100 MCG/2 ML VIAL IV ONE (15:15)
[2019-04-01] MEDS ORDERED: MIDAZOLAM HCL/PF 2 MG/2 ML VIAL. IV ONE (15:15)
[2019-04-01] MEDS ORDERED: IODIXANOL 320 MG/ML 100 ML VIAL. IART ONE (15:15)
[2019-04-01] MEDS ORDERED: LIDOCAINE WITH 8.4% SOD BICARB 3 ML DISP.SYRIN. IJ ONE (15:15)
[2019-04-01] MEDS ORDERED: HEPARIN for IV BOLUS 10,000 UNIT/10 ML VIAL. IV ONE (15:15)
[2019-04-01 15:20] VITALS: BP 135/58
[2019-04-01] MEDS ORDERED: LIDOCAINE 1% PF 2 ML VIAL. ONE ×2 (15:38→16:00)
--- NOTE | 2019-04-01 16:27 | RAD ---
04/01/2019 1. Left upper extremity fistulogram 2. Pharmacomechanical thrombolysis thrombosed Hero graft. 3. Angioplasty of outflow vein stenosis Indication: 71-year-old female with a thrombosed left upper extremity HERO dialysis graft Discussion: The risks and benefits of the procedure were discussed the patient. Informed consent was obtained. The patient was brought to the interventional suite and placed in the supine position. Timeout procedure was performed. The left upper extremity was prepped and draped using sterile barrier technique. Ultrasound evaluation of left upper extremity graft demonstrates complete thrombosis. 1% lidocaine without epinephrine was administered for local anesthesia. The graft was accessed using a micropuncture needle. A vascular sheath was placed. A Glidewire and angled Marion catheter were advanced centrally into the right atrium. Pullback venogram demonstrated thrombosis of the majority of the left extending into the central portions. Pharmacochemical thrombolysis was performed using 10 mg of TPA and AngioJet catheter. Graft was accessed towards the arterial anastomosis. After a 20 minute intubation time, rheolytic thrombectomy was performed. The arterial plug was pulled using a 5 mm balloon from the arterial directed sheath. Fistulogram was were repeated. This demonstrates the removal majority of the clot from the graft. A few areas of thrombus and irregularity within the proximal outflow vein persistently which are treated with balloon maceration using a 6 mm and 7 mm balloon. Sluggish flow persisted. The graft was accessed directed towards the arterial anastomosis. Central venograms were performed demonstrating no residual clot or stenosis. Following treatment brisk flow through the graft was noted. And pursestring sutures were placed and sheath removed to achieve hemostasis. Sterile dressings were applied. No immediate complications were identified. The procedure was performed under conscious sedation including continuous cardiopulmonary monitoring via sedation nurse. Sedation time: 1 hour Fluoro time 12.5 minutes Dose area product: 97 Gycm2 Impression: Successful pharmacologic and mechanical thrombolysis of a thrombosed left upper extremity Hero graft with subsequent balloon angioplasty of a multiple outflow stenoses as described
--- NOTE | 2019-04-01 17:16 | PDOC ---
PROGRESS NOTES Subjective She was hypoglycemic overnight, didn't each much dinner, NPO early today for IR to recannulate shunt which was successful, she is drowsy from medication but in dialysis, her potassium was ok this am Objective Afebrile General: comfortable Heart: RRR Lungs: CTA Abd: obese, soft Ext: no cyanosis, some lymphedema Vital Signs Vital Signs Date Time Temp Pulse Resp B/P (MAP) Pulse Ox O2 Delivery O2 Flow Rate FiO2 04/01/19 15:20 53 12 100 Nasal Cannula 2.0 04/01/19 12:58 90/34 04/01/19 11:00 98.0 98.0 I & O Intake and Output 04/01/19 07:00 Intake Total 50 ml Balance 50 ml Intake Oral 50 ml # Bowel Movements 2 Assessment and Plan (1) AV fistula occlusion - opened by IR (2) ESRD (end stage renal disease) on dialysis - dialysis today (3) Type 2 diabetes with overnight hypoglycemia - change to SSI only Joanne HUFF MD Apr 01, 2019 17:16
[2019-04-01 19:00] VITALS: BP 127/46
[2019-04-01] MEDS: FAMOTIDINE 20 MG TABLET. PO SCH (21:45)
[2019-04-01] MEDS: GABAPENTIN 300 MG CAPSULE. PO SCH (21:46)
[2019-04-01 23:00] VITALS: BP 112/25
[2019-04-02 03:00] VITALS: BP 92/26
[2019-04-02] MEDS: LEVOTHYROXINE 50 MCG TABLET PO SCH (06:23)
[2019-04-02 07:00] VITALS: BP 130/85
[2019-04-02] MEDS: ALBUTEROL SULFATE 2.5 MG/3 ML NEBU. NEB SCH (07:00)
[2019-04-02] MEDS: INSULIN LISPRO 300 UNITS/3 ML VIAL. SQ SCH ×3 (08:00→17:00)
[2019-04-02] MEDS: amLODIPine BESYLATE 5 MG TABLET PO SCH (09:16)
[2019-04-02] MEDS: FOLIC/VIT B COMP W-C (RENAL) TABLET. PO SCH (09:16)
[2019-04-02] MEDS: SEVELAMER CARBONATE 800 MG TABLET. PO SCH ×3 (09:16→17:01)
[2019-04-02] MEDS: CINACALCET HCL 30 MG TABLET PO SCH (09:16)
[2019-04-02] MEDS: ASPIRIN ENTERIC COATED 81 MG TABLET.DR. PO SCH (09:16)
[2019-04-02] MEDS: FLUTICASONE 50MCG/NASAL SPRAY 16GM BOTTLE. NS SCH (09:16)
--- NOTE | 2019-04-02 10:10 | PDOC3 ---
Discharge Summary [facility] Date of Admission: Mar 31, 2019 Discharge Date: Apr 02, 2019 Admitting Diagnosis occluded AV dialysis shunt, ESRD Final Diagnosis (1) AV fistula occlusion (2) ESRD (end stage renal disease) on dialysis (3) hypoglycemia - requiring glucagon and stopping routine insulin dodes CONSULTS IR, renal Procedures recanalization of AV fistula, hemodialysis Brief Hospital Course Ms. Wilkerson is a 73 old who presented with an occluded AV fistula at dialysis on Friday and she came to the ER on Friday and was admitted so IR could attempt to recannulate her fistula which they did yesterday and then she was dialyzed. During and after dialysis she was drowsy and not eating and was hypoglycemic overnight. She required glucagon the prior night for hypoglycemia. Her routine insulin was held and she was just given SSI. Today she feels well other than some left hip bursitis pain which was present prior to admission but flared some here with the hospital bed. Patient History: Diabetes mellitus type II G8 BROTHER G8 SISTER G8 SISTER FH: asthma G8 SON G8 SON FH: hypertension G8 DAUGHTER G8 SON G8 SON G8 SISTER Unknown Disposition home, continue T- Th- Sat dialysis CONDITION AT DISCHARGE: Improved, Stable Diet renal Scheduled Albuterol Sulfate (Ventolin Hfa Inhaler), 2 PUFF INH BID, (Reported) Amlodipine Besylate (Amlodipine Besylate), 5 MG PO DAILY, (Reported) Aspirin (Low Dose Aspirin Ec), 1 TAB PO DAILY, (Reported) Cinacalcet Hcl (Sensipar), 30 MG PO DAILY, (Reported) Fluticasone Propionate (Fluticasone Propionate Nasal [place]), 2 SPRAY NS DAILY, (Reported) Folic Acid/Vitamin B Comp W-C (Nephro-Donovan Tablet), 0.8 MG PO DAILY, (Reported) Gabapentin (Gabapentin), 300 MG PO QHS Levothyroxine Sodium (Levothyroxine Sodium), 50 MCG PO DAILY, (Reported) Ranitidine Hcl (Ranitidine Hcl), 300 MG PO BID, (Reported) Sevelamer Carbonate (Renvela), 800 MG PO TIDWMEALS, (Reported) Warfarin Sodium (Coumadin), 1 TAB PO DAILY, (Reported) Scheduled PRN Hydrocodone Bit/Acetaminophen (Hydrocodone-Apap 7.5-325 ), 1 TAB PO BID PRN for PAIN, (Reported) Ibuprofen (Ibuprofen), 800 MG PO PRN Q6HRS PRN for INFLAMMATION, (Reported) Midodrine Hcl (Midodrine Hcl), 5 MG PO PRN PRN for PER PROTOCOL, (Reported) Miscellaneous Medications Cholecalciferol (Vitamin D3) (Vitamin D3), 1,000 UNIT PO, (Reported) Discontinued Medications Insulin Aspart (Novolog), 10 UNIT SQ TIDACHC, (Reported) Insulin Glargine,Hum.rec.anlog (Lantus Solostar), 20 UNITS SQ QHS Follow Up 1-2 weeks with Joanne Ha MD Apr 02, 2019 10:09
[2019-04-02 11:00] VITALS: BP 127/40
--- NOTE | 2019-04-02 14:01 | PDOC ---
SUBJECTIVE ROS Eating lunch , no complaints, states she will be getting cortisone shot OBJECTIVE Vital Signs Vital Signs Date Time Temp Pulse Resp B/P (MAP) Pulse Ox O2 Delivery O2 Flow Rate FiO2 04/02/19 11:00 97.9 78 18 127/40 (69) 90 Room Air 97.9 04/01/19 15:20 2.0 I & 0 Intake and Output 04/02/19 06:59 Intake Total 500 ml Balance 500 ml Intake Oral 500 ml PHYSICAL EXAM Physical Exam .GEN: NAD HEEN- OM moist NECK: Supple CVS: RRR RESP: CTA, No use of Acc. Muscle Use GI: Soft, NT : No CVA tenderness, No Suprapubic Tenderness, No Bonds NEURO- Grossly normal, No Asterexis SKIN NO Rash DIAGNOSIS/ASSESSMENT Assessment & Plan ESRD - On HD TTS Dialysis yesterday Currently no indication Access- Left upper extremity venous Doppler occlusion of the left AV fistula. Partial left IJ thrombus, likely on a chronic basis s/p Left upper extremity fistulogram,Pharmacomechanical thrombolysis thrombosed Hero graft, Angioplasty of outflow vein stenosis DM- per primary HTN- stable Anemia - Hgb > 10 No indication for FRED COMMENT/RELEVANT DATA Meds Current Medications Medications (Trade) Dose Ordered Sig/[place] Start Time Stop Time Status Last Admin Dose Admin Acetaminophen (Tylenol) 650 mg PRN Q4HRS PRN 03/31/19 14:15 04/01/19 14:14 DC Acetaminophen/ Hydrocodone Bitart (Lortab 7.5/325) 1 tab PRN BID PRN 03/31/19 15:30 Albuterol Sulfate (Ventolin Neb Soln) 2.5 mg BID 03/31/19 21:00 04/02/19 07:00 2.5 MG Alteplase, Recombinant (Cathflo) 8 mg 1X ONCE 04/01/19 14:00 04/01/19 14:01 Cancel Alteplase, Recombinant 10 mg/ Sodium Chloride 100 ml @ 10 mls/hr 1X ONCE 04/01/19 14:00 04/01/19 23:59 DC 04/01/19 15:09 10 MLS/HR Amlodipine Besylate (Norvasc) 5 mg DAILY 03/31/19 16:00 04/02/19 09:18 5 MG Aspirin (Ecotrin) 81 mg DAILY 03/31/19 16:00 04/02/19 09:18 81 MG Cinacalcet (Sensipar) 30 mg DAILY 03/31/19 16:00 04/02/19 09:18 30 MG Dextrose 250 ml PRN Q15MIN PRN 04/01/19 11:00 Dextrose (Dextrose 50%-Water Syringe) 12.5 gm PRN Q15MIN PRN 04/01/19 11:00 Diphenhydramine HCl (Benadryl) 25 mg 1X ONCE 04/01/19 15:15 04/01/19 15:21 DC 04/01/19 15:16 25 MG Famotidine (Pepcid) 20 mg QHS 03/31/19 21:00 04/01/19 21:46 20 MG Fentanyl Citrate (Fentanyl 2ml Vial) 150 mcg 1X ONCE 04/01/19 15:15 04/01/19 15:21 DC 04/01/19 15:16 150 MCG Fluticasone Propionate (Flonase) 2 spray DAILY 03/31/19 16:00 04/02/19 09:18 2 SPRAY Gabapentin (Neurontin) 300 mg QHS 03/31/19 21:00 04/01/19 21:46 300 MG Glucagon (Glucagen) 1 mg 1X ONCE 04/01/19 08:30 04/01/19 08:31 DC 04/01/19 08:22 1 MG Heparin Sodium (Porcine) (Heparin Sodium) 5,000 unit 1X ONCE 04/01/19 15:15 04/01/19 15:21 DC 04/01/19 15:16 5,000 UNIT Heparin Sodium/ Sodium Chloride (HEPARIN for ARTERIAL LINE FLUSH) 1,000 unit 1X ONCE 04/01/19 15:15 04/01/19 15:21 DC 04/01/19 15:16 1,000 UNIT Ibuprofen (Motrin) 800 mg PRN Q6HRS PRN 03/31/19 15:30 04/02/19 09:30 800 MG Info (PHARMACY MONITORING -- do not chart) 1 each PRN DAILY PRN 04/01/19 14:30 Insulin Glargine (Lantus Syringe) 20 unit QHS 03/31/19 21:00 04/01/19 11:01 DC Insulin Human Lispro (HumaLOG) 0-5 UNITS TIDWMEALS 04/01/19 12:00 Iodixanol (Visipaque 320) 49 ml 1X ONCE 04/01/19 15:15 04/01/19 15:21 DC 04/01/19 15:16 49 ML Levothyroxine Sodium (Synthroid) 50 mcg DAILY06 04/01/19 06:00 04/02/19 06:24 50 MCG Lidocaine HCl (Xylocaine-Mpf 1% 2ml Vial) 2 ml STK-MED ONCE 04/01/19 16:00 04/02/19 09:18 DC Lidocaine/Sodium Bicarbonate (Buffered Lidocaine 1%) 3 ml 1X ONCE 04/01/19 15:15 04/01/19 15:21 DC 04/01/19 15:16 3 ML Midazolam HCl (Versed) 2 mg 1X ONCE 04/01/19 15:15 04/01/19 15:21 DC 04/01/19 15:16 2 MG Midodrine (Proamatine) 5 mg PRN DAILY PRN 03/31/19 15:30 Non-Formulary Medication (Albuterol Sulfate (Ventolin Hfa Inhaler)) 2 puff BID 03/31/19 21:00 UNV Ondansetron HCl (Zofran) 4 mg PRN Q8HRS PRN 03/31/19 14:15 04/01/19 14:14 DC Sevelamer Carbonate (Renvela) 800 mg TIDWMEALS 03/31/19 17:00 04/02/19 12:50 800 MG Sodium Chloride 1,000 ml @ 400 mls/hr Q2H30M PRN 04/01/19 14:16 04/02/19 02:15 DC Vitamin B Complex/ Vitamin C (Sandra-Donovan) 1 tab DAILY 03/31/19 16:00 04/02/19 09:18 1 TAB Warfarin Sodium (Coumadin - No Dose Today) 1 each 1X WARF ONCE 03/31/19 21:00 03/31/19 21:01 DC 03/31/19 20:31 1 EACH Warfarin Sodium (Coumadin Per Physician) 1 each PRN DAILY PRN 03/31/19 15:45 Warfarin Sodium (Coumadin) 7.5 mg DAILY16 03/31/19 17:00 03/31/19 20:30 DC Lab Laboratory Tests Test 04/01/19 16:42 04/01/19 17:12 04/01/19 20:15 04/02/19 03:40 Glucose (Fingerstick) 64 mg/dL (70-99) 83 mg/dL (70-99) 85 mg/dL (70-99) 93 mg/dL (70-99) Test 04/02/19 07:32 04/02/19 09:32 04/02/19 11:06 Glucose (Fingerstick) 68 mg/dL (70-99) 91 mg/dL (70-99) 79 mg/dL (70-99) Results All relevant outside records, renal labs, imaging studies, telemetry/EKG's were reviewed. MARIO NOVOA MD Apr 02, 2019 14:01
--- NOTE | 2019-04-02 14:38 | NUR ---
SW following pt for dc planning. Pt lives at home with family and is on HD at [facility]. WILMER phoned and faxed clinicals to [facility] , phone: [phone], fax: [phone]. WILMER informed Mayela at Clinic pt is discharging today.
[2019-04-02 15:00] VITALS: BP 110/42
--- NOTE | 2019-04-02 17:00 | NUR ---
DISCHARGE INSTRUCTIONS GIVEN, QUESTIONS AND CONCERNS ANSWERED, PATIENT VERBALIZED UNDERSTANDING OF DISCHARGE INFORMATION INCLUDING TAKING ALL MEDICATIONS INSTRUCTED AND FOLLOWING UP WITH HER PRIMARY PROVIDER IN 1-2 WEEKS. ALL PERSONAL BELONGINGS GATHERED BY THE PATIENT AND HER FAMILY MEMBERS AT THE BEDSIDE AND PLACED IN BAGS FOR DISCHARGE.
--- NOTE | 2019-04-02 17:35 | NUR ---
PATIENT LEAVES THE UNIT PER HER PERSONAL WHEELCHAIR AND ACCOMPANIED BY THIS CLINICAL PARTNER, EMOTIONAL SUPPORT GIVEN, FOLLOW UP APPOINTMENTS ENCOURAGED.
== END 2019-04-02 17:35 | disposition home or self-care (01) | DRG 252 ==
LOC: ER 10:00 → 5 SOUTH 13:53
PROVIDERS: ADMIT Family Medicine; ATTEND Family Medicine
PROC: 5A1D70Z Performance of Urinary Filtration, Intermittent, Less than 6 Hours Per Day (ICD-10-PCS; principal; 2019-04-01)
PROC: 057Y3ZZ Dilation of Upper Vein, Percutaneous Approach (ICD-10-PCS; 2019-04-01)
PROC: 03CY3ZZ Extirpation of Matter from Upper Artery, Percutaneous Approach (ICD-10-PCS; 2019-04-01)
PROC: B51N1ZZ Fluoroscopy of Left Upper Extremity Veins using Low Osmolar Contrast (ICD-10-PCS; 2019-04-01)
PROC: 3E03317 Introduction of Other Thrombolytic into Peripheral Vein, Percutaneous Approach (ICD-10-PCS; 2019-04-01)
DX: T82.898A Other specified complication of vascular prosthetic devices, implants and grafts, initial encounter (principal); N18.6 End stage renal disease; I12.0 Hypertensive chronic kidney disease with stage 5 chronic kidney disease or end stage renal disease; E03.9 Hypothyroidism, unspecified; E11.22 Type 2 diabetes mellitus with diabetic chronic kidney disease; E11.649 Type 2 diabetes mellitus with hypoglycemia without coma; E78.00 Pure hypercholesterolemia, unspecified; I25.10 Atherosclerotic heart disease of native coronary artery without angina pectoris; J45.909 Unspecified asthma, uncomplicated; K21.9 Gastro-esophageal reflux disease without esophagitis; M70.72 Other bursitis of hip, left hip; Y83.2 Surgical operation with anastomosis, bypass or graft as the cause of abnormal reaction of the patient, or of later complication, without mention of misadventure at the time of the procedure; M19.90 Unspecified osteoarthritis, unspecified site; F41.9 Anxiety disorder, unspecified; Y83.8 Other surgical procedures as the cause of abnormal reaction of the patient, or of later complication, without mention of misadventure at the time of the procedure; Z82.49 Family history of ischemic heart disease and other diseases of the circulatory system; Z85.42 Personal history of malignant neoplasm of other parts of uterus; Z99.2 Dependence on renal dialysis; Z90.710 Acquired absence of both cervix and uterus; Z90.49 Acquired absence of other specified parts of digestive tract; D64.9 Anemia, unspecified
CPT/HCPCS: 36415; 36901; 36905; 76937; 80048; 80053; 82962; 85025; 85610; 93971; 94640; 94760; 99152; 99153; C1725; C1757; C1769; C1892; C1894; J1200; J1610; J1644; J1815; J2250; J2997; J3010; J7613; Q9967; 99285-25; G0378

== ENCOUNTER 2019-04-14 11:08 | Inpatient (IN) | payer MEDICARE, OTHER ==
[~2019-04-14] VITALS: Ht 170.2 cm; Wt 125.4 kg
[~2019-04-14 11:08] MED LIST changes: -MIDO5TAB PO; +MIDO5TAB4 PO; +SIMV40TA18 PO; -SIMV40TA3 PO
[2019-04-14 12:19] LABS: BASE EXCESS ABG -11 mmol/L (-3-3); HCO3 ABG 18 mmol/L (21-28); PCO2 ABG 49 mmHg (35-46); PO2 ABG 60 mmHg (65-108); SAT O2 ABG 91 % (92-99)
[2019-04-14 12:22] LABS: FIO2 ABG 21
[2019-04-14 12:32] LABS: BASO % 1 % (0-3); EOS # 0.1 x10^3/uL (0.0-0.7); EOS % 3 % (0-3); HEMATOCRIT 36.9 % (36.0-47.0); HEMOGLOBIN 11.3 g/dL (12.0-15.5); LYMPH # 1.1 x10^3/uL (1.0-4.8); LYMPH % 27 % (24-48); MEAN CORPUSCULAR HEMOGLOBIN 33 pg (25-35); MEAN CORPUSCULAR HGB CONC 31 g/dL (31-37); MEAN CORPUSCULAR VOLUME 108 fL (79-100); MONO # 0.4 x10^3/uL (0.0-1.1); MONO % 10 % (0-9); NEUT # 2.4 x10^3/uL (1.8-7.7); NEUT % 59 % (31-73); PLATELET COUNT 154 x10^3/uL (140-400); RED BLOOD COUNT 3.42 x10^6/uL (3.50-5.40); RED CELL DISTRIBUTION WIDTH 16.5 % (11.5-14.5)
[2019-04-14 12:39] LABS: CALCIUM 8.4 mg/dL (8.5-10.1); CREATININE 4.6 mg/dL (0.6-1.0); GFR 11.2; POTASSIUM 3.7 mmol/L (3.5-5.1)
[2019-04-14 12:40] LABS: PROTHROMBIN TIME PATIENT 30.5 SEC (11.7-14.0)
[2019-04-14 12:44] LABS: ALBUMIN 3.3 g/dL (3.4-5.0); ALBUMIN/GLOBULIN RATIO 0.9 (1.0-1.7); TOTAL BILIRUBIN 0.5 mg/dL (0.2-1.0); TOTAL PROTEIN 7.1 g/dL (6.4-8.2)
--- NOTE | 2019-04-14 12:45 | RAD ---
CT HEAD WO CONTRAST History: Altered mental status on Coumadin. Comparison: None. Technique: Noncontrast CT imaging was performed of the head. Exposure: One or more of the following individualized dose reduction techniques were utilized for this examination: 1. Automated exposure control 2. Adjustment of the mA and/or kV according to patient size 3. Use of iterative reconstruction technique. Findings: No intracranial hemorrhage. No mass effect. No hydrocephalus. Extra-axial spaces are unremarkable. Percent the sella. Age-related volume loss. Imaged orbits are unremarkable. Complete opacification of the left sphenoid sinus. Increased sclerosis surrounding the left sphenoid sinus, may indicate chronic osteitis. Mild right sphenoid and right maxillary sinus mucosal thickening. Impression: 1. No acute intracranial abnormality. 2. Left sphenoid sinus disease. Electronically signed by: Brandon Gregory DO (04/14/2019 12:41 PM) [id number]
[2019-04-14 13:00] LABS: ACETAMIN < 2 mcg/ml (10-30); SALIC < 2.8 mg/dL (2.8-20.0)
--- NOTE | 2019-04-14 13:04 | RAD ---
EXAM: Abdomen acute complete. HISTORY: Constipation. Shortness of breath. COMPARISON: None. FINDINGS: A frontal view of the chest and frontal upright and supine views of the abdomen are obtained. There is a small to moderate right pleural effusion with right lower lobe infiltrate. This is superimposed on diffuse interstitial prominence likely due to congestion. There is cardiomegaly. There is a vascular stent extending from the left axillary region to the superior cavoatrial junction. There are nonspecific air-filled loops of bowel within the abdomen. No transition point is seen. No free air is seen. There is incidental advanced degenerative change involving the right glenohumeral joint. IMPRESSION: 1. Small to moderate right pleural effusion with lower lobe infiltrate. 2. Pulmonary congestion and cardiomegaly. 3. Nonspecific bowel gas pattern, without evidence of obstruction. Electronically signed by: Loraine Tai MD (04/14/2019 1:01 PM) [id number]
[2019-04-14] MEDS ORDERED: levOFLOXacin PER PHARMACY. MC PRN (13:15)
[2019-04-14] MEDS ORDERED: VANCOMYCIN 2 GM in IV NORMAL SALINE 500ML BAG 500 ML IV ONE (13:30)
--- NOTE | 2019-04-14 13:33 | PHYS DOC ---
Past Medical History Past Medical History: Anemia, CAD, Cancer, Diabetes-Type II, High Cholesterol, Heart Disease, Hypertension, Renal Failure, Other Additional Past Medical Histor: uterine cancer Past Surgical History: Hysterectomy, Other Additional Past Surgical Histo: FISTULA- L upper arm Alcohol Use: None Drug Use: None Adult General Chief Complaint Chief Complaint: WEAKNESS/GENERALIZED HPI HPI Patient is a 73 year old female who was brought in by enemas with generalized weakness. She has had decreased by mouth intake she has been constipated really just harder to wake up dry cough the last few days approximately 3 days according to the daughter no fever that they know she had dialysis yesterday reports compliance. Really denies abdominal pain just hasn't had a bowel movement in the last week no trauma according to the daughter just barely makes any urine at all. Again no fever that they know of Review of Systems Review of Systems Limited by altered mental status Current Medications Current Medications Current Medications Medications (Trade) Dose Ordered Sig/Kenney Start Time Stop Time Status Last Admin Dose Admin Levofloxacin/ Dextrose (Levaquin Per Pharmacy) 1 each PRN DAILY PRN 04/14/19 13:15 UNV Vancomycin HCl (Vanco Per Pharmacy) 1 each PRN DAILY PRN 04/14/19 13:15 UNV Vancomycin HCl 2 gm/Sodium Chloride 500 ml @ 250 mls/hr 1X ONCE 04/14/19 13:30 04/14/19 15:29 Allergies Allergies Allergies Coded Allergies Type Severity Reaction Last Updated Verified No Known Medication Allergies Allergy Unknown 05/07/17 Yes Physical Exam Physical Exam Mild distress .well nourished, HENT: Normocephalic, atraumatic, bilateral external ears normal, oropharynx moist, no oral exudates, nose normal. [] Eyes: PERRLA, EOMI, conjunctiva normal, no discharge. [] Neck: Normal range of motion, no tenderness, supple, no stridor. [] Cardiovascular:Heart rate regular rhythm, 3-6 systolic murmur Abdomen: Bowel sounds normal, soft, no tenderness, no masses, no pulsatile masses. [] Skin: Warm, dry, no erythema, no rash. [] Back: No tenderness, no CVA tenderness. [] Extremities: No tenderness, no cyanosis, no clubbing, ROM intact, 2+ edema noted in lower extremities bilaterally. Neurologic: Eyes open to voice patient is somewhat somnolent keeps falling asleep is able to follow commands and answer questions however antigravity all 4 extremities pupils are equal round reactive to light no head trauma was identified Current Patient Data Vital Signs Vital Signs Date Time Temp Pulse Resp B/P (MAP) Pulse Ox O2 Delivery O2 Flow Rate FiO2 04/14/19 11:16 98.2 64 16 119/57 (77) 94 Room Air 98.2 Lab Values Laboratory Tests Test 04/14/19 12:15 White Blood Count 4.0 x10^3/uL (4.0-11.0) Red Blood Count 3.42 x10^6/uL (3.50-5.40) L Hemoglobin 11.3 g/dL (12.0-15.5) L Hematocrit 36.9 % (36.0-47.0) Mean Corpuscular Volume 108 fL (79-100) H Mean Corpuscular Hemoglobin 33 pg (25-35) Mean Corpuscular Hemoglobin Concent 31 g/dL (31-37) Red Cell Distribution Width 16.5 % (11.5-14.5) H Platelet Count 154 x10^3/uL (140-400) Neutrophils (%) (Auto) 59 % (31-73) Lymphocytes (%) (Auto) 27 % (24-48) Monocytes (%) (Auto) 10 % (0-9) H Eosinophils (%) (Auto) 3 % (0-3) Basophils (%) (Auto) 1 % (0-3) Neutrophils # (Auto) 2.4 x10^3/uL (1.8-7.7) Lymphocytes # (Auto) 1.1 x10^3/uL (1.0-4.8) Monocytes # (Auto) 0.4 x10^3/uL (0.0-1.1) Eosinophils # (Auto) 0.1 x10^3/uL (0.0-0.7) Basophils # (Auto) 0.0 x10^3/uL (0.0-0.2) Prothrombin Time 30.5 SEC (11.7-14.0) H Prothrombin Time INR 2.9 (0.8-1.1) H O2 Saturation 91 % (92-99) L Arterial Blood pH 7.18 (7.35-7.45) *L Arterial Blood pCO2 at Patient Temp 49 mmHg (35-46) H Arterial Blood pO2 at Patient Temp 60 mmHg (65-108) L Arterial Blood HCO3 18 mmol/L (21-28) L Arterial Blood Base Excess -11 mmol/L (-3-3) L FiO2 21 Sodium Level 141 mmol/L (136-145) Potassium Level 3.7 mmol/L (3.5-5.1) Chloride Level 108 mmol/L (98-107) H Carbon Dioxide Level 22 mmol/L (21-32) Anion Gap 11 (6-14) Blood Urea Nitrogen 14 mg/dL (7-20) Creatinine 4.6 mg/dL (0.6-1.0) H Estimated GFR (Cockcroft-Gault) 11.2 BUN/Creatinine Ratio 3 (6-20) L Glucose Level 79 mg/dL (70-99) Lactic Acid Level 0.7 mmol/L (0.4-2.0) Calcium Level 8.4 mg/dL (8.5-10.1) L Total Bilirubin 0.5 mg/dL (0.2-1.0) Aspartate Amino Transferase (AST) 18 U/L (15-37) Alanine Aminotransferase (ALT) 11 U/L (14-59) L Alkaline Phosphatase 457 U/L (46-116) H Troponin I Quantitative 0.040 ng/mL (0.000-0.055) DW-Roe-W-Type Natriuretic Peptide > 10577 pg/mL (0-449) H Total Protein 7.1 g/dL (6.4-8.2) Albumin 3.3 g/dL (3.4-5.0) L Albumin/Globulin Ratio 0.9 (1.0-1.7) L Lipase 47 U/L (73-393) L Salicylates Level < 2.8 mg/dL (2.8-20.0) L Salicylate Last Dose Date Unknown Salicylate Last Dose Time Unknown Acetaminophen Level < 2 mcg/ml (10-30) L Acetaminophen Last Dose Date Unknown Acetaminophen Last Dose Time Unknown Laboratory Tests 04/14/19 12:15 Laboratory Tests 04/14/19 12:15 EKG EKG []EKG shows accelerated junctional rhythm rate is 66 differential would include sinus right bundle branch block pattern no STEMI QRSs 130. Interpreted by me the time of encounter Radiology/Procedures Radiology/Procedures [] Findings: No intracranial hemorrhage. No mass effect. No hydrocephalus. Extra-axial spaces are unremarkable. Percent the sella. Age-related volume loss. Imaged orbits are unremarkable. Complete opacification of the left sphenoid sinus. Increased sclerosis surrounding the left sphenoid sinus, may indicate chronic osteitis. Mild right sphenoid and right maxillary sinus mucosal thickening. Impression: 1. No acute intracranial abnormality. 2. Left sphenoid sinus disease. Electronically signed by: Brandon Reese DO (04/14/2019 12:41 PM) [id number] DICTATED and SIGNED BY: BRANDON REESE DO DATE: 04/14/19 1241 Impressions: IMPRESSION: 1. Small to moderate right pleural effusion with lower lobe infiltrate. 2. Pulmonary congestion and cardiomegaly. 3. Nonspecific bowel gas pattern, without evidence of obstruction. Electronically signed by: Loraine Agarwal MD (04/14/2019 1:01 PM) [id number] DICTATED and SIGNED BY: LORAINE AGARWAL MD DATE: 04/14/19 1301 Course & Med Decision Making Course & Med Decision Making Pertinent Labs and Imaging studies reviewed. (See chart for details) []Multiple medical problems diabetes CAD hypertension end-stage renal disease on hemodialysis chronic pain presenting with somnolence decreased mental status for the last 3 days ER workup reveals a negative acute head CT labs consistent with known chronic kidney disease with end-stage renal disease chest x-ray sugg estive of a right basilar pneumonia pH was slightly acidotic mostly metabolic he could be primarily an end-stage renal type of blood gas PCO2 was okay so BiPAP not necessary. There may be an underlying component of metabolic acidosis related to the pneumonia however lactic acid is 0.7 and the blood pressure is within normal limits as well which is reassuring I spoke with Dr. Moore plan to admit for pneumonia Vanco and Levaquin were ordered in the emergency room IV fluids because the patient is end-stage renal as normal lactate and normal blood pressure as well Dragon Disclaimer Dragon Disclaimer This electronic medical record was generated, in whole or in part, using a voice recognition dictation system. Departure Departure Impression: Primary Impression: Right lower lobe pneumonia Disposition: ADMITTED INPATIENT Admitting Physician: Mable Moore Condition: STABLE Referrals: Joanne MOORE MD (PCP) DIETER GAO MD Apr 14, 2019 13:33
--- NOTE | 2019-04-14 14:22 | EKG ---
[facility] [address] [place] [address] Test Date: 2019-04-14 Test Time: 11:42:13 Pat Name: ROSE CAMPOS Department: Room: Gender: F Guest Room Attendant: : 1945 Requested By: DIETER GAO Order Number: [id number] Reading MD: Sean Brown Measurements Intervals [place] Rate: 66 P: VA: QRS: 139 QRSD: 130 T: 21 QT: 502 QTc: 528 Interpretive Statements PROBABLE SINUS RHYTHM ABNORMAL RIGHT AXIS DEVIATION LOW LIMB LEAD VOLTAGE NON SPECIFIC INTRAVENTRICULAR BLOCK Electronically Signed On 04-23-2019 15:44:24 CDT by Sean Brown
[2019-04-14 15:26] VITALS: BP 122/46
[2019-04-14] MEDS ORDERED: DOCUSATE SODIUM 100 MG CAPSULE. PO PRN (15:45)
[2019-04-14] MEDS ORDERED: MAG HYDROX/ALUMINUM HYD/SIMETH 30 ML ORAL.SUSP PO PRN (15:45)
[2019-04-14] MEDS ORDERED: cloNIDine HCL 0.1 MG TABLET PO PRN (15:45)
[2019-04-14] MEDS ORDERED: LEVOTHYROXINE 50 MCG TABLET PO SCH (17:00)
[2019-04-14] MEDS ORDERED: WARFARIN 7.5 MG TABLET. PO SCH (17:11)
--- NOTE | 2019-04-14 17:17 | PDOC ---
Infectious Disease Note Vital Sign Vital Signs Vital Signs Date Time Temp Pulse Resp B/P (MAP) Pulse Ox O2 Delivery O2 Flow Rate FiO2 04/14/19 15:26 97.4 65 20 122/46 (71) 95 Room Air 97.4 Labs Lab Laboratory Tests Test 04/14/19 12:15 White Blood Count 4.0 x10^3/uL (4.0-11.0) Red Blood Count 3.42 x10^6/uL (3.50-5.40) Hemoglobin 11.3 g/dL (12.0-15.5) Hematocrit 36.9 % (36.0-47.0) Mean Corpuscular Volume 108 fL (79-100) Mean Corpuscular Hemoglobin 33 pg (25-35) Mean Corpuscular Hemoglobin Concent 31 g/dL (31-37) Red Cell Distribution Width 16.5 % (11.5-14.5) Platelet Count 154 x10^3/uL (140-400) Neutrophils (%) (Auto) 59 % (31-73) Lymphocytes (%) (Auto) 27 % (24-48) Monocytes (%) (Auto) 10 % (0-9) Eosinophils (%) (Auto) 3 % (0-3) Basophils (%) (Auto) 1 % (0-3) Neutrophils # (Auto) 2.4 x10^3/uL (1.8-7.7) Lymphocytes # (Auto) 1.1 x10^3/uL (1.0-4.8) Monocytes # (Auto) 0.4 x10^3/uL (0.0-1.1) Eosinophils # (Auto) 0.1 x10^3/uL (0.0-0.7) Basophils # (Auto) 0.0 x10^3/uL (0.0-0.2) Prothrombin Time 30.5 SEC (11.7-14.0) Prothromb Time International Ratio 2.9 (0.8-1.1) O2 Saturation 91 % (92-99) Arterial Blood pH 7.18 (7.35-7.45) Arterial Blood pCO2 at Patient Temp 49 mmHg (35-46) Arterial Blood pO2 at Patient Temp 60 mmHg (65-108) Arterial Blood HCO3 18 mmol/L (21-28) Arterial Blood Base Excess -11 mmol/L (-3-3) FiO2 21 Sodium Level 141 mmol/L (136-145) Potassium Level 3.7 mmol/L (3.5-5.1) Chloride Level 108 mmol/L (98-107) Carbon Dioxide Level 22 mmol/L (21-32) Anion Gap 11 (6-14) Blood Urea Nitrogen 14 mg/dL (7-20) Creatinine 4.6 mg/dL (0.6-1.0) Estimated GFR (Cockcroft-Gault) 11.2 BUN/Creatinine Ratio 3 (6-20) Glucose Level 79 mg/dL (70-99) Lactic Acid Level 0.7 mmol/L (0.4-2.0) Calcium Level 8.4 mg/dL (8.5-10.1) Total Bilirubin 0.5 mg/dL (0.2-1.0) Aspartate Amino Transf (AST/SGOT) 18 U/L (15-37) Alanine Aminotransferase (ALT/SGPT) 11 U/L (14-59) Alkaline Phosphatase 457 U/L (46-116) Troponin I Quantitative 0.040 ng/mL (0.000-0.055) WW-Qwk-N-Type Natriuretic Peptide > 55298 pg/mL (0-449) Total Protein 7.1 g/dL (6.4-8.2) Albumin 3.3 g/dL (3.4-5.0) Albumin/Globulin Ratio 0.9 (1.0-1.7) Lipase 47 U/L (73-393) Procalcitonin 0.67 ng/mL (0.00-0.10) Salicylates Level < 2.8 mg/dL (2.8-20.0) Salicylate Last Dose Date Unknown Salicylate Last Dose Time Unknown Acetaminophen Level < 2 mcg/ml (10-30) Acetaminophen Last Dose Date Unknown Acetaminophen Last Dose Time Unknown Ethyl Alcohol Level < 10 mg/dL (0-10) Objective Assessment RLL infiltrate and pleural effusion Sinus disease on CT Constipation Bradycardia CKD/HD via AV fistula -s/p fistulogram/thrombolysis/angioplasty, 04/01. Diabetes II Morbid obesity h/o Proteus (R tetra) Plan Plan of Care continue vancomycin, add Zosyn d/c levaquin with bradycardia and will have atypicals covered for now until Monday 04/16 Says got a flu shot prior to admit f/u cultures Bowel regimen per primary Transferring down to [facility] D/w nursing D/w Dr. Moore Thank you [phone] Attending Co-Sign Attending Co-Sign The patient was seen and interviewed as well as examined at the bedside. The chart was reviewed. The case was discussed. Agree with the plan of care. KRISTI TEJADA APRN Apr 14, 2019 17:17 CASSANDRA GARBER MD Apr 14, 2019 17:21
--- NOTE | 2019-04-14 17:19 | PDOC1 ---
History and Physical Date of Admission Date of Admission 04/14/19 Identification/Chief Complaint Chief Complaint weakness Source Source: Chart review, Patient History of Present Illness History of Present Illness Due to weakness and grogginess she was sent to ER today by daughter, she went to dialysis yesterday, she dropped her cereal this am. She denies fever, chills or illness exposure. She has a cough today and her right eye is "goopy". She has an abnormal ABG in ER and was acidotic at 7.19 but her lactic was normal, her procalcitonin was slightly elevated and her pro BNP was >35,000, her CXR suggests an aspiration type RLL pneumonia but her lung sounds clear. Since admission she has been bradycardic with HR in the 40s. She has received IV antibiotics, she is on narcotics at home for chronic pain Past Medical History Cardiovascular: HTN, Other Pulmonary: Asthma GI: GERD Heme/Onc: Anemia NOS, Cancer Psych: Anxiety Renal/: Chronic renal failure Endocrine: Diabetes, Hypothyroidism Past Surgical History Past Surgical History: Tonsillectomy, Hysterectomy, Other Family History Family History: Hypertension, Kidney Disease Social History ALCOHOL: none Drugs: None Current Problem List Problem List Problems Medical Problems: (1) Right lower lobe pneumonia Status: Acute Current Medications Current Medications Current Medications Medications (Trade) Dose Ordered Sig/Kenney Start Time Stop Time Status Last Admin Dose Admin Acetaminophen (Tylenol) 650 mg PRN Q4HRS PRN 04/14/19 15:45 Al Hydroxide/Mg Hydroxide (Mylanta Plus Xs) 30 ml PRN DAILY PRN 04/14/19 15:45 Amlodipine Besylate (Norvasc) 5 mg DAILY 04/15/19 09:00 UNV Aspirin (Ecotrin) 81 mg DAILY 04/15/19 09:00 UNV Cinacalcet (Sensipar) 30 mg DAILY 04/15/19 09:00 UNV Clonidine HCl (Catapres) 0.1 mg PRN Q6HRS PRN 04/14/19 15:45 Docusate Sodium (Colace) 100 mg PRN BID PRN 04/14/19 15:45 Enoxaparin Sodium (Lovenox 40mg Syringe) 40 mg Q24H 04/14/19 18:00 Cancel Fluticasone Propionate (Flonase) 2 spray DAILY 04/15/19 09:00 UNV Gabapentin (Neurontin) 300 mg QHS 04/14/19 21:00 UNV Heparin Sodium (Porcine) (Heparin Sodium) 5,000 unit Q8HRS 04/14/19 22:00 Levofloxacin/ Dextrose 100 ml @ 100 mls/hr Q48H 04/16/19 14:00 Levofloxacin/ Dextrose (Levaquin Per Pharmacy) 1 each PRN DAILY PRN 04/14/19 13:15 04/14/19 15:43 DC Levothyroxine Sodium (Synthroid) 50 mcg DAILY 04/15/19 09:00 UNV Midodrine (Proamatine) 5 mg TID PRN 04/14/19 17:15 UNV Non-Formulary Medication (Albuterol Sulfate (Ventolin Hfa Inhaler)) 2 puff BID 04/14/19 21:00 UNV Non-Formulary Medication (Ranitidine Hcl ) 300 mg BID 04/14/19 21:00 UNV Sevelamer Carbonate (Renvela) 800 mg TIDWMEALS 04/15/19 08:00 UNV Vancomycin HCl (Vanco Per Pharmacy) 1 each PRN DAILY PRN 04/14/19 13:15 Vancomycin HCl 2 gm/Sodium Chloride 500 ml @ 250 mls/hr 1X ONCE 04/14/19 13:30 04/14/19 15:29 DC Vitamin B Complex/ Vitamin C (Sandra-Donovan) 1 tab DAILY 04/15/19 09:00 UNV Warfarin Sodium (Coumadin) 7.5 mg DAILY 04/15/19 09:00 UNV Allergies Allergies Allergies Coded Allergies Type Severity Reaction Last Updated Verified No Known Medication Allergies Allergy Unknown 05/07/17 Yes ROS Review of System CONSTITUTIONAL: No fever or chills EYES: right eye discharge SKIN: bruising left shunt from recent revascularization CARDIOVASCULAR: No chest pain, syncope, palpitations RESPIRATORY: No SOB, + new cough GASTROINTESTINAL: No nausea, vomiting or abdominal pain NEUROLOGICAL: No headaches, + generalized weakness ENDOCRINE: + cold intolerance (AC) GENITOURINARY: She makes little urine MUSCULOSKELETAL: chronic back pain LYMPHATICS: No enlarged lymph nodes PSYCHIATRIC: No anxiety or depression Physical Exam Physical Exam GEN.: groggy HEENT: Head is normocephalic, atraumatic NECK: Supple. LUNGS: Clear to auscultation. HEART: bradycardic, S1, S2 present. Peripheral pulses intact ABDOMEN: Soft, nontender. Positive bowel sounds. EXTREMITIES: Without any cyanosis. NEUROLOGIC: sluggish speech, diminished tone PSYCHIATRIC: flat affect, normal mood. SKIN: No ulcerations Vitals Vitals Vital Signs Date Time Temp Pulse Resp B/P (MAP) Pulse Ox O2 Delivery O2 Flow Rate FiO2 04/14/19 16:48 Room Air 04/14/19 15:26 97.4 65 20 122/46 (71) 95 97.4 Labs Labs Laboratory Tests Test 04/14/19 12:15 04/14/19 16:20 White Blood Count 4.0 x10^3/uL (4.0-11.0) Red Blood Count 3.42 x10^6/uL (3.50-5.40) Hemoglobin 11.3 g/dL (12.0-15.5) Hematocrit 36.9 % (36.0-47.0) Mean Corpuscular Volume 108 fL (79-100) Mean Corpuscular Hemoglobin 33 pg (25-35) Mean Corpuscular Hemoglobin Concent 31 g/dL (31-37) Red Cell Distribution Width 16.5 % (11.5-14.5) Platelet Count 154 x10^3/uL (140-400) Neutrophils (%) (Auto) 59 % (31-73) Lymphocytes (%) (Auto) 27 % (24-48) Monocytes (%) (Auto) 10 % (0-9) Eosinophils (%) (Auto) 3 % (0-3) Basophils (%) (Auto) 1 % (0-3) Neutrophils # (Auto) 2.4 x10^3/uL (1.8-7.7) Lymphocytes # (Auto) 1.1 x10^3/uL (1.0-4.8) Monocytes # (Auto) 0.4 x10^3/uL (0.0-1.1) Eosinophils # (Auto) 0.1 x10^3/uL (0.0-0.7) Basophils # (Auto) 0.0 x10^3/uL (0.0-0.2) Prothrombin Time 30.5 SEC (11.7-14.0) Prothromb Time International Ratio 2.9 (0.8-1.1) O2 Saturation 91 % (92-99) Arterial Blood pH 7.18 (7.35-7.45) Arterial Blood pCO2 at Patient Temp 49 mmHg (35-46) Arterial Blood pO2 at Patient Temp 60 mmHg (65-108) Arterial Blood HCO3 18 mmol/L (21-28) Arterial Blood Base Excess -11 mmol/L (-3-3) FiO2 21 Sodium Level 141 mmol/L (136-145) Potassium Level 3.7 mmol/L (3.5-5.1) Chloride Level 108 mmol/L (98-107) Carbon Dioxide Level 22 mmol/L (21-32) Anion Gap 11 (6-14) Blood Urea Nitrogen 14 mg/dL (7-20) Creatinine 4.6 mg/dL (0.6-1.0) Estimated GFR (Cockcroft-Gault) 11.2 BUN/Creatinine Ratio 3 (6-20) Glucose Level 79 mg/dL (70-99) Lactic Acid Level 0.7 mmol/L (0.4-2.0) Calcium Level 8.4 mg/dL (8.5-10.1) Total Bilirubin 0.5 mg/dL (0.2-1.0) Aspartate Amino Transf (AST/SGOT) 18 U/L (15-37) Alanine Aminotransferase (ALT/SGPT) 11 U/L (14-59) Alkaline Phosphatase 457 U/L (46-116) Troponin I Quantitative 0.040 ng/mL (0.000-0.055) 0.024 ng/mL (0.000-0.055) RB-Bsj-V-Type Natriuretic Peptide > 20500 pg/mL (0-449) Total Protein 7.1 g/dL (6.4-8.2) Albumin 3.3 g/dL (3.4-5.0) Albumin/Globulin Ratio 0.9 (1.0-1.7) Lipase 47 U/L (73-393) Procalcitonin 0.67 ng/mL (0.00-0.10) Salicylates Level < 2.8 mg/dL (2.8-20.0) Salicylate Last Dose Date Unknown Salicylate Last Dose Time Unknown Acetaminophen Level < 2 mcg/ml (10-30) Acetaminophen Last Dose Date Unknown Acetaminophen Last Dose Time Unknown Ethyl Alcohol Level < 10 mg/dL (0-10) Laboratory Tests Test 04/14/19 12:15 10/2/19 16:20 White Blood Count 4.0 x10^3/uL (4.0-11.0) Red Blood Count 3.42 x10^6/uL (3.50-5.40) Hemoglobin 11.3 g/dL (12.0-15.5) Hematocrit 36.9 % (36.0-47.0) Mean Corpuscular Volume 108 fL (79-100) Mean Corpuscular Hemoglobin 33 pg (25-35) Mean Corpuscular Hemoglobin Concent 31 g/dL (31-37) Red Cell Distribution Width 16.5 % (11.5-14.5) Platelet Count 154 x10^3/uL (140-400) Neutrophils (%) (Auto) 59 % (31-73) Lymphocytes (%) (Auto) 27 % (24-48) Monocytes (%) (Auto) 10 % (0-9) Eosinophils (%) (Auto) 3 % (0-3) Basophils (%) (Auto) 1 % (0-3) Neutrophils # (Auto) 2.4 x10^3/uL (1.8-7.7) Lymphocytes # (Auto) 1.1 x10^3/uL (1.0-4.8) Monocytes # (Auto) 0.4 x10^3/uL (0.0-1.1) Eosinophils # (Auto) 0.1 x10^3/uL (0.0-0.7) Basophils # (Auto) 0.0 x10^3/uL (0.0-0.2) Prothrombin Time 30.5 SEC (11.7-14.0) Prothromb Time International Ratio 2.9 (0.8-1.1) O2 Saturation 91 % (92-99) Arterial Blood pH 7.18 (7.35-7.45) Arterial Blood pCO2 at Patient Temp 49 mmHg (35-46) Arterial Blood pO2 at Patient Temp 60 mmHg (65-108) Arterial Blood HCO3 18 mmol/L (21-28) Arterial Blood Base Excess -11 mmol/L (-3-3) FiO2 21 Sodium Level 141 mmol/L (136-145) Potassium Level 3.7 mmol/L (3.5-5.1) Chloride Level 108 mmol/L (98-107) Carbon Dioxide Level 22 mmol/L (21-32) Anion Gap 11 (6-14) Blood Urea Nitrogen 14 mg/dL (7-20) Creatinine 4.6 mg/dL (0.6-1.0) Estimated GFR (Cockcroft-Gault) 11.2 BUN/Creatinine Ratio 3 (6-20) Glucose Level 79 mg/dL (70-99) Lactic Acid Level 0.7 mmol/L (0.4-2.0) Calcium Level 8.4 mg/dL (8.5-10.1) Total Bilirubin 0.5 mg/dL (0.2-1.0) Aspartate Amino Transf (AST/SGOT) 18 U/L (15-37) Alanine Aminotransferase (ALT/SGPT) 11 U/L (14-59) Alkaline Phosphatase 457 U/L (46-116) Troponin I Quantitative 0.040 ng/mL (0.000-0.055) 0.024 ng/mL (0.000-0.055) EJ-Xag-O-Type Natriuretic Peptide > 17264 pg/mL (0-449) Total Protein 7.1 g/dL (6.4-8.2) Albumin 3.3 g/dL (3.4-5.0) Albumin/Globulin Ratio 0.9 (1.0-1.7) Lipase 47 U/L (73-393) Procalcitonin 0.67 ng/mL (0.00-0.10) Salicylates Level < 2.8 mg/dL (2.8-20.0) Salicylate Last Dose Date Unknown Salicylate Last Dose Time Unknown Acetaminophen Level < 2 mcg/ml (10-30) Acetaminophen Last Dose Date Unknown Acetaminophen Last Dose Time Unknown Ethyl Alcohol Level < 10 mg/dL (0-10) Images Images EXAM: Abdomen acute complete. HISTORY: Constipation. Shortness of breath. COMPARISON: None. FINDINGS: A frontal view of the chest and frontal upright and supine views of the abdomen are obtained. There is a small to moderate right pleural effusion with right lower lobe infiltrate. This is superimposed on diffuse interstitial prominence likely due to congestion. There is cardiomegaly. There is a vascular stent extending from the left axillary region to the superior cavoatrial junction. There are nonspecific air-filled loops of bowel within the abdomen. No transition point is seen. No free air is seen. There is incidental advanced degenerative change involving the right glenohumeral joint. IMPRESSION: 1. Small to moderate right pleural effusion with lower lobe infiltrate. 2. Pulmonary congestion and cardiomegaly. 3. Nonspecific bowel gas pattern, without evidence of obstruction. CT HEAD WO CONTRAST History: Altered mental status on Coumadin. Comparison: None. Technique: Noncontrast CT imaging was performed of the head. Exposure: One or more of the following individualized dose reduction techniques were utilized for this examination: 1. Automated exposure control 2. Adjustment of the mA and/or kV according to patient size 3. Use of iterative reconstruction technique. Findings: No intracranial hemorrhage. No mass effect. No hydrocephalus. Extra-axial spaces are unremarkable. Percent the sella. Age-related volume loss. Imaged orbits are unremarkable. Complete opacification of the left sphenoid sinus. Increased sclerosis surrounding the left sphenoid sinus, may indicate chronic osteitis. Mild right sphenoid and right maxillary sinus mucosal thickening. Impression: 1. No acute intracranial abnormality. 2. Left sphenoid sinus disease. VTE Prophylaxis Ordered VTE Prophylaxis Devices: Yes VTE Pharmacological Prophylaxi: Yes Assessment/Plan Assessment/Plan suspected aspiration pneumonia - pulm and ID consuls sphenoid sinusitis per imaging - ID consult encephalopathy - hold narcotics metabolic acidosis - repeat ABG ESRD - routine dialysis tomorrow, Dr. Wellington is her usual photovoltaic installer Bradycardia - check EKG, troponin, Cardiology consult, transfer to [facility] Joanne HUFF MD Apr 14, 2019 17:19
[2019-04-14] MEDS: ASPIRIN ENTERIC COATED 81 MG TABLET.DR. PO SCH (17:20)
[2019-04-14] MEDS: FOLIC/VIT B COMP W-C (RENAL) TABLET. PO SCH (17:20)
[2019-04-14] MEDS: FLUTICASONE 50MCG/NASAL SPRAY 16GM BOTTLE. NS SCH (17:20)
[2019-04-14] MEDS: MIDODRINE 5 MG TABLET PO SCH (17:20)
[2019-04-14] MEDS: CINACALCET HCL 30 MG TABLET PO SCH (17:20)
[2019-04-14] MEDS: amLODIPine BESYLATE 5 MG TABLET PO SCH (17:20)
[2019-04-14] MEDS: SEVELAMER CARBONATE 800 MG TABLET. PO SCH (17:35)
--- NOTE | 2019-04-14 17:44 | CONS ---
DATE OF CONSULTATION: 04/14/2019 REFERRING PHYSICIAN: Dr. Moore REASON FOR CONSULTATION: Sepsis, aspiration pneumonia, and elevated procalcitonin. HISTORY OF PRESENT ILLNESS: The patient is a 73-year-old -[place] female with a past medical history of diabetes mellitus type 2, coronary artery disease, and chronic kidney disease, on hemodialysis, who over the last 2-3 days has felt "woozy, drowsy, and weak." She has not been very hungry. She complains of sore throat, dry cough, and nasal congestion. Denies fevers, chills, sweats, or body aches. Denies headache, confusion, or difficulty swallowing. She complains of constipation. Her last bowel movement was almost a week ago. She denies cramps, nausea, vomiting, or passing gas. On arrival to the ER, she was afebrile with a normal WBC count. Her procalcitonin level was 0.67. She was found to have a pH of 7.18 on room air satting 91%. An abdominal x-ray revealed [id number] right pleural effusion with lower lobe infiltrate, pulmonary congestion and cardiomegaly, nonspecific bowel gas pattern without evidence of obstruction. A CT head without contrast showed complete opacification of the left sphenoid sinus, and mild right sphenoid and right maxillary sinus mucosal thickening. No acute intracranial abnormality. She was dosed with vancomycin and levofloxacin in the ER for pneumonia. The patient is having some bradycardia on telemetry. She denies chest discomfort, shortness of air, or dizziness. Plan to transfer her to [facility] unit is underway. She gets dialysis on Friday, , and Friday. She was recently hospitalized a couple of weeks ago for an occluded fistula, status post fistulogram, pharmacomechanical thrombolysis, thrombosed HeRO graft, and angioplasty of outflow vein stenosis on 04/01/2019. Denies recent antibiotics. PAST MEDICAL HISTORY: Hypertension, diabetes mellitus type 2, hyperlipidemia, hypothyroidism, osteoarthritis, asthma, peripheral arterial disease, GERD, coronary artery disease, arrhythmia, anxiety, morbid obesity, anemia of chronic renal disease, chronic pain, history of Proteus mirabilis sepsis (resistant to tetra), and history of uterine cancer. PAST SURGICAL HISTORY: AV fistula; HeRO graft; multiple fistulograms; pharmacomechanical thrombolysis and angioplasty of the outflow vein stenosis, most recent 04/01/2019; tonsillectomy; and hysterectomy. SOCIAL HISTORY: The patient lives at home with her son and daughter. She does not smoke or drink. FAMILY HISTORY: Hypertension and kidney disease. ALLERGIES: No known drug allergies. MEDICATIONS: Vancomycin, levofloxacin, Tylenol, clonidine, Colace, heparin, and Maalox. PHYSICAL EXAMINATION: VITAL SIGNS: Temperature is 97.4, blood pressure 122/46, heart rate 65, respiratory rate 20, and pulse oximetry 95% on room air. GENERAL: The patient is propped up in bed, awake, and in no apparent distress. HEENT: Mild conjunctival injection, right eye, and drainage bilaterally. Oropharynx pink and moist. Edentulous. NECK: Supple. LUNGS: Clear to auscultation. HEART: S1, S2. ABDOMEN: Obese, soft, and nontender with bowel sounds present. EXTREMITIES: No gross edema or cyanosis. SKIN: Warm to touch. No signs of rash. NEUROLOGIC: Awake and answering questions appropriately. LABORATORY DATA: Today's WBC 4.0 from 3.1 on 03/31/2019. Hemoglobin 11.3 and platelets 154,000. Creatinine 4.6 and BUN 14. Sodium 141, potassium 3.7, lactic acid 1.8, glucose 79, total bilirubin 0.5, AST 18, and ALT 11. Troponin 0.040. BNP greater than 35,000. Lipase 47. Albumin 0.9. Procalcitonin 0.67. Urine toxicology pending. Urinalysis and blood cultures have been ordered. IMAGING: Per HPI. IMPRESSION: 1. Right lower lobe infiltrate and pleural effusion. 2. Sinus disease on CT. 3. Constipation. 4. Bradycardia. 5. Chronic kidney disease, on hemodialysis via arteriovenous fistula. 6. Diabetes type 2. 7. Morbid obesity. PLAN: Continue vancomycin and add Zosyn for gram-negative tina coverage. Discontinue levofloxacin. The patient says she received a flu shot prior to admission. Labs have been ordered for the morning. We will follow up on culture results. Bowel regimen per primary. Transfer to [facility] underway. Thank you, Dr. Moore, for asking us to participate in this patient's care. Should you have further questions or concerns, please call. The patient is seen and examined and plan of care implemented by Dr. David Cifuentes. DAVID CIFUENTES MD DR: Jorge JOB#: [id number] / [id number]
[2019-04-14] MEDS ORDERED: ENOXAPARIN 40 MG/0.4 ML SYRINGE. SQ SCH (18:00)
--- NOTE | 2019-04-14 18:01 | EKG ---
[facility] [address] [place] [address] Test Date: 2019-04-14 Test Time: 18:52:06 Pat Name: ROSE CAMPOS Department: Room: 673 1 Gender: F District Associate Judge: : 1945 Requested By: Joanne HUFF Order Number: [id number] Reading MD: Sean Brown Measurements Intervals [place] Rate: 63 P: [place]: QRS: 137 QRSD: 102 T: 15 QT: 446 QTc: 460 Interpretive Statements PROBABLE SINUS RHYTHM RIGHT AXIS DEVIATION NON SPECIFIC INTRAVENTRICULAR BLOCK Electronically Signed On 04-23-2019 16:28:34 CDT by Sean Brown
[2019-04-14 18:32] VITALS: BP 117/46
[2019-04-14] MEDS: VANCOMYCIN PER PHARMACY MC PRN (18:39)
--- NOTE | 2019-04-14 18:41 | NUR ---
Pharmacy Vancomycin Dosing Note S:Consulted to monitor and dose vancomycin started 04/14/19. O:ROSE CAMPOS is a 73 year old F with Sepsis Pneumonia . Height: 5 feet, 7 inches Weight: 120.168625 kg [place] Body Weight: 61.60 Adjusted Body Weight: 84.96 Dosing Weight: Actual Other Antibiotics: LEVAQUIN X1 LABS: Last BUN: Last Creatinine: 4.0 Creatinine Clearance: 14 mL/min Last WBC: 4 Last Procalcitonin: 0.67 Tmax (past 24 hours): 98.2 Microbiology: I/O: Drug Levels: Last level: on at Last dose given 04/14/19 at 1830 Vancomycin Dosing: Loading Dose: 2000 mg x1 Dosing Weight: Actual Target Trough: 15-20 A: Based on: RENAL FUNCTION (DIALYSIS TTSAT) AND INDICATION P: 1. Begin Vancomycin IV 2GM IV X1 2. Follow up Random level on 04/17/19 at 0600 AND REDOSE AT NEEDED. 3. Pharmacy will continue to monitor, follow and adjust therapy as needed. MARYCRUZ MAY [facility], 04/14/19 [id number]
[2019-04-14] MEDS: ALBUTEROL SULFATE 2.5 MG/3 ML NEBU. NEB SCH (19:15)
[2019-04-14 19:46] VITALS: BP 149/71
[2019-04-14] MEDS ORDERED: SODIUM BICARB ADULT 8.4% 50 MEQ/50 ML DISP.SYRIN. IV ONE (20:00)
--- NOTE | 2019-04-14 20:00 | NUR ---
Pt in bed very sleepy but arousable assessment completed vss poc explained pt denies pain call light placed i n reach bed alarm set will resume care and continue to monitor pt.
[2019-04-14] MEDS: GABAPENTIN 300 MG CAPSULE. PO SCH (21:21)
[2019-04-14] MEDS: FAMOTIDINE 20 MG TABLET. PO SCH (21:22)
[2019-04-14] MEDS: HEPARIN for SUB-Q USE 5,000 UNIT/ML VIAL. SQ SCH (21:27)
[2019-04-14 21:35] LABS: BASE EXCESS ABG -8 mmol/L (-3-3); HCO3 ABG 19 mmol/L (21-28); PCO2 ABG 46 mmHg (35-46); PO2 ABG 104 mmHg (65-108); SAT O2 ABG 97 % (92-99)
[2019-04-14 21:59] LABS: FIO2 ABG 30
[2019-04-14 23:06] VITALS: BP 141/71
[2019-04-15 02:51] VITALS: BP 136/59
[2019-04-15 04:46] LABS: BASO % 1 % (0-3); EOS # 0.1 x10^3/uL (0.0-0.7); EOS % 2 % (0-3); HEMATOCRIT 35.9 % (36.0-47.0); HEMOGLOBIN 11.3 g/dL (12.0-15.5); LYMPH # 0.9 x10^3/uL (1.0-4.8); LYMPH % 25 % (24-48); MEAN CORPUSCULAR HEMOGLOBIN 33 pg (25-35); MEAN CORPUSCULAR HGB CONC 32 g/dL (31-37); MEAN CORPUSCULAR VOLUME 106 fL (79-100); MONO # 0.4 x10^3/uL (0.0-1.1); MONO % 10 % (0-9); NEUT # 2.3 x10^3/uL (1.8-7.7); NEUT % 62 % (31-73); PLATELET COUNT 140 x10^3/uL (140-400); RED CELL DISTRIBUTION WIDTH 17.2 % (11.5-14.5); WHITE BLOOD COUNT 3.8 x10^3/uL (4.0-11.0)
[2019-04-15 04:54] LABS: PROTHROMBIN TIME PATIENT 32.7 SEC (11.7-14.0)
[2019-04-15 04:57] LABS: CALCIUM 8.2 mg/dL (8.5-10.1); CREATININE 4.9 mg/dL (0.6-1.0); GFR 10.4; POTASSIUM 3.7 mmol/L (3.5-5.1)
[2019-04-15] MEDS: MIDODRINE 5 MG TABLET PO SCH ×3 (06:13→18:02)
[2019-04-15] MEDS: HEPARIN for SUB-Q USE 5,000 UNIT/ML VIAL. SQ SCH ×3 (06:13→21:19)
[2019-04-15 07:00] VITALS: BP 143/65
[2019-04-15] MEDS ORDERED: IV NORMAL SALINE 1000ML BAG 1,000 ML IV PRN ×2 (07:35)
[2019-04-15] MEDS: ALBUTEROL SULFATE 2.5 MG/3 ML NEBU. NEB SCH ×2 (07:45→20:09)
[2019-04-15] MEDS ORDERED: LIDOCAINE 1% PF 2 ML VIAL. INJ ONE (07:45)
[2019-04-15] MEDS ORDERED: diphenhydrAMINE 50 MG/ML VIAL IV PRN ×2 (07:45)
[2019-04-15] MEDS ORDERED: DIALYSIS PATIENT. MC PRN ×2 (07:45)
[2019-04-15] MEDS ORDERED: ACETAMINOPHEN 500 MG TABLET PO PRN (07:45)
[2019-04-15] MEDS ORDERED: ALBUMIN HUMAN 25% 200 ML IV PRN (07:45)
[2019-04-15] MEDS: DEXTROSE 50% 25 GM / 50ML DISP.SYRIN. IV PRN ×2 (07:50→14:10)
[2019-04-15] MEDS: SEVELAMER CARBONATE 800 MG TABLET. PO SCH ×3 (08:00→17:47)
[2019-04-15 08:34] LABS: BASE EXCESS COOX -8 mmol/L (-3-3); HCO3 COOX 20 mmol/L (21-28); METHEMOGLOBIN 0.4 % (0.0-1.9); OXYHEMOGLOBIN 97.1 %; PCO2 COOX 51 mmHg (35-46); PO2 COOX 130 mmHg (65-108); SAT O2 COOX 98 % (92-99)
[2019-04-15] MEDS: FLUTICASONE 50MCG/NASAL SPRAY 16GM BOTTLE. NS SCH (09:00)
--- NOTE | 2019-04-15 10:24 | PDOC ---
Infectious Disease Note Subjective Subjective Tired this morning, didn't sleep well last night with BiPAP + BM x 2 No F/C/N/V/SOA/CP/dizziness ROS ROS per HPI Vital Sign Vital Signs Vital Signs Date Time Temp Pulse Resp B/P (MAP) Pulse Ox O2 Delivery O2 Flow Rate FiO2 04/15/19 07:50 96 BiPAP/CPAP 04/15/19 07:00 98.2 50 20 143/65 (91) 98.2 Physical Exam PHYSICAL EXAM GENERAL: Propped up in bed, awake, dialyzing HEENT: Mild conjunctival injection, right eye, and drainage bilaterally, little better Oropharynx pink and moist. Edentulous. NECK: Supple. LUNGS: Clear to auscultation. HEART: S1, S2. ABDOMEN: Obese, soft, and nontender with bowel sounds present. EXTREMITIES: No gross edema or cyanosis. LUE-AVF area bruised SKIN: Warm to touch. No signs of rash. NEUROLOGIC: Awake and answering questions appropriately. Labs Lab Laboratory Tests Test 04/14/19 12:15 04/14/19 16:20 04/14/19 17:04 04/14/19 18:00 White Blood Count 4.0 x10^3/uL (4.0-11.0) Red Blood Count 3.42 x10^6/uL (3.50-5.40) Hemoglobin 11.3 g/dL (12.0-15.5) Hematocrit 36.9 % (36.0-47.0) Mean Corpuscular Volume 108 fL (79-100) Mean Corpuscular Hemoglobin 33 pg (25-35) Mean Corpuscular Hemoglobin Concent 31 g/dL (31-37) Red Cell Distribution Width 16.5 % (11.5-14.5) Platelet Count 154 x10^3/uL (140-400) Neutrophils (%) (Auto) 59 % (31-73) Lymphocytes (%) (Auto) 27 % (24-48) Monocytes (%) (Auto) 10 % (0-9) Eosinophils (%) (Auto) 3 % (0-3) Basophils (%) (Auto) 1 % (0-3) Neutrophils # (Auto) 2.4 x10^3/uL (1.8-7.7) Lymphocytes # (Auto) 1.1 x10^3/uL (1.0-4.8) Monocytes # (Auto) 0.4 x10^3/uL (0.0-1.1) Eosinophils # (Auto) 0.1 x10^3/uL (0.0-0.7) Basophils # (Auto) 0.0 x10^3/uL (0.0-0.2) Prothrombin Time 30.5 SEC (11.7-14.0) Prothromb Time International Ratio 2.9 (0.8-1.1) O2 Saturation 91 % (92-99) 97 % (92-99) Arterial Blood pH 7.18 (7.35-7.45) 7.23 (7.35-7.45) Arterial Blood pCO2 at Patient Temp 49 mmHg (35-46) 46 mmHg (35-46) Arterial Blood pO2 at Patient Temp 60 mmHg (65-108) 104 mmHg (65-108) Arterial Blood HCO3 18 mmol/L (21-28) 19 mmol/L (21-28) Arterial Blood Base Excess -11 mmol/L (-3-3) -8 mmol/L (-3-3) FiO2 21 30 Sodium Level 141 mmol/L (136-145) Potassium Level 3.7 mmol/L (3.5-5.1) Chloride Level 108 mmol/L (98-107) Carbon Dioxide Level 22 mmol/L (21-32) Anion Gap 11 (6-14) Blood Urea Nitrogen 14 mg/dL (7-20) Creatinine 4.6 mg/dL (0.6-1.0) Estimated GFR (Cockcroft-Gault) 11.2 BUN/Creatinine Ratio 3 (6-20) Glucose Level 79 mg/dL (70-99) Lactic Acid Level 0.7 mmol/L (0.4-2.0) Calcium Level 8.4 mg/dL (8.5-10.1) Magnesium Level 1.8 mg/dL (1.8-2.4) Total Bilirubin 0.5 mg/dL (0.2-1.0) Aspartate Amino Transf (AST/SGOT) 18 U/L (15-37) Alanine Aminotransferase (ALT/SGPT) 11 U/L (14-59) Alkaline Phosphatase 457 U/L (46-116) Troponin I Quantitative 0.040 ng/mL (0.000-0.055) 0.024 ng/mL (0.000-0.055) WF-Pqf-A-Type Natriuretic Peptide > 20781 pg/mL (0-449) Total Protein 7.1 g/dL (6.4-8.2) Albumin 3.3 g/dL (3.4-5.0) Albumin/Globulin Ratio 0.9 (1.0-1.7) Lipase 47 U/L (73-393) Procalcitonin 0.67 ng/mL (0.00-0.10) Thyroid Stimulating Hormone (TSH) 10.973 uIU/mL (0.358-3.74) Salicylates Level < 2.8 mg/dL (2.8-20.0) Salicylate Last Dose Date Unknown Salicylate Last Dose Time Unknown Acetaminophen Level < 2 mcg/ml (10-30) Acetaminophen Last Dose Date Unknown Acetaminophen Last Dose Time Unknown Ethyl Alcohol Level < 10 mg/dL (0-10) Glucose (Fingerstick) 55 mg/dL (70-99) Test 04/14/19 18:45 04/14/19 20:34 04/15/19 02:58 04/15/19 07:41 Glucose (Fingerstick) 79 mg/dL (70-99) 139 mg/dL (70-99) 70 mg/dL (70-99) White Blood Count 3.8 x10^3/uL (4.0-11.0) Red Blood Count 3.40 x10^6/uL (3.50-5.40) Hemoglobin 11.3 g/dL (12.0-15.5) Hematocrit 35.9 % (36.0-47.0) Mean Corpuscular Volume 106 fL (79-100) Mean Corpuscular Hemoglobin 33 pg (25-35) Mean Corpuscular Hemoglobin Concent 32 g/dL (31-37) Red Cell Distribution Width 17.2 % (11.5-14.5) Platelet Count 140 x10^3/uL (140-400) Neutrophils (%) (Auto) 62 % (31-73) Lymphocytes (%) (Auto) 25 % (24-48) Monocytes (%) (Auto) 10 % (0-9) Eosinophils (%) (Auto) 2 % (0-3) Basophils (%) (Auto) 1 % (0-3) Neutrophils # (Auto) 2.3 x10^3/uL (1.8-7.7) Lymphocytes # (Auto) 0.9 x10^3/uL (1.0-4.8) Monocytes # (Auto) 0.4 x10^3/uL (0.0-1.1) Eosinophils # (Auto) 0.1 x10^3/uL (0.0-0.7) Basophils # (Auto) 0.0 x10^3/uL (0.0-0.2) Prothrombin Time 32.7 SEC (11.7-14.0) Prothromb Time International Ratio 3.2 (0.8-1.1) Sodium Level 142 mmol/L (136-145) Potassium Level 3.7 mmol/L (3.5-5.1) Chloride Level 108 mmol/L (98-107) Carbon Dioxide Level 22 mmol/L (21-32) Anion Gap 12 (6-14) Blood Urea Nitrogen 16 mg/dL (7-20) Creatinine 4.9 mg/dL (0.6-1.0) Estimated GFR (Cockcroft-Gault) 10.4 Glucose Level 81 mg/dL (70-99) Calcium Level 8.2 mg/dL (8.5-10.1) Test 04/15/19 08:18 04/15/19 08:29 Glucose (Fingerstick) 89 mg/dL (70-99) O2 Saturation 98 % (92-99) Arterial Blood pH 7.22 (7.35-7.45) Arterial Blood pCO2 at Patient Temp 51 mmHg (35-46) Arterial Blood pO2 at Patient Temp 130 mmHg (65-108) Arterial Blood HCO3 20 mmol/L (21-28) Arterial Blood Base Excess -8 mmol/L (-3-3) Oxyhemoglobin 97.1 % Methemoglobin 0.4 % (0.0-1.9) Carbon Monoxide, Quantitative 0.9 % (0.0-1.9) FiO2 30 Objective Assessment Leukopenia RLL infiltrate and pleural effusion Sinus disease on CT Constipation Bradycardia CKD/HD via AV fistula -s/p fistulogram/thrombolysis/angioplasty, 04/01. Diabetes II Morbid obesity Hypothyroidism h/o Proteus (R tetra) Plan Plan of Care vancomycin and Zosyn Off levaquin with bradycardia. will have atypical coverage until Monday 04/16 Says got a flu shot prior to admit f/u cultures Bowel regimen per primary Await cardiology evaluation Will wean abx soon based on results d/w son Attending Co-Sign Attending Co-Sign The patient was seen and interviewed as well as examined at the bedside. The chart was reviewed. The case was discussed. Agree with the plan of care. KRISTI TEJADA APRN Apr 15, 2019 10:24 CASSANDRA GARBER MD Apr 15, 2019 17:21
[2019-04-15] MEDS ORDERED: PIP/TAZO PER PHARMACY MC PRN (10:30)
--- NOTE | 2019-04-15 10:36 | CONS ---
DATE OF CONSULTATION: ATTENDING PHYSICIAN: Dr. Jose Alberto Moore. REASON FOR CONSULTATION: Respiratory failure. HISTORY OF PRESENT ILLNESS: The patient is a 73-year-old female who has no tobacco history and is not on home oxygen. She was brought into the Emergency Room after she felt weak and lightheaded. The patient states she could not hold objects with her hand. She had a mild cough with light yellow sputum production. No chest pain, no headaches, no nausea, vomiting or diarrhea. The patient's review of vital signs did not reveal any elevated temperature. I reviewed the patient's chest x-ray and it showed right lower lobe pleural effusion with evidence of CHF and cardiomegaly. There may be associated atelectasis or infiltrate in the right lower lobe. The patient was started on antibiotic, vancomycin and received Levaquin as well and I have been asked to see her for further evaluation. Her arterial blood gases were abnormal with a pH of 7.18, pCO2 of 49 and a pO2 of 60 with a bicarbonate of 18. This was on room air. Last night, they call me with these abnormal blood gases and I have placed the patient on BiPAP and also give 2 amps of bicarbonate. She had combined metabolic and respiratory acidosis. This morning after overnight use of BiPAP, her ABG showed a pH of 7.22, pCO2 of 51, a pO2 of 130 and a bicarbonate of 20. She is undergoing dialysis. She has not missed any dialysis session. PAST MEDICAL HISTORY: Significant for history of hypertension, history of asthma, GERD, underlying morbid obesity with a BMI of 41; history of end-stage renal disease, on hemodialysis; history of hypothyroidism and diabetes. PAST SURGICAL HISTORY: Tonsillectomy, hysterectomy. FAMILY HISTORY: Hypertension and kidney disease. SOCIAL HISTORY: Nonsmoker, nonalcoholic. MEDICATIONS: Reviewed as listed in the MRAD. REVIEW OF SYSTEMS: Twelve-point system obtained. Pertinent positives discussed in my present illness, otherwise noncontributory. All systems that were negative were reviewed as well. PHYSICAL EXAMINATION: VITAL SIGNS: Reviewed. GENERAL: She is awake. She is afebrile, pulse ox 95% on room air. NECK: Supple. LUNGS: Clear. CARDIOVASCULAR: With a regular rate. ABDOMEN: Soft, nontender, obese. EXTREMITIES: With 1+ pitting edema. LABORATORY DATA: Reviewed. BUN 16, creatinine 4.9. Her INR 3.2. White cell count 3.8, hemoglobin 11.3 and platelets are 140. Her procalcitonin level was 0.67 and her TSH was 10.9. IMPRESSION: 1. Acute respiratory failure secondary to combined metabolic and respiratory acidosis. 2. Encephalopathy, probably contributed by hypercapnia. Hypothyroidism may have contributed in that as well. In addition, needs to rule out for pneumonia versus congestive heart failure. 3. Abnormal chest x-ray consistent with congestive heart failure with vascular markings been prominent and right lower lobe effusion along with cardiomegaly. Cannot exclude pneumonia. We will obtain noncontrast CT chest for further evaluation. 4. Morbid obesity needs to be ruled out for sleep apnea as an outpatient. I would recommend doing a sleep study. 5. Hypothyroidism with an elevated TSH level needs to be adjusted with levothyroxine. RECOMMENDATIONS: 1. Discussed with the patient and Nephrology. I would recommend increasing the bicarbonate with hemodialysis. 2. Follow ABGs. 3. Avoid any sedatives. 4. Noncontrast CT chest after dialysis to assess for effusion and infiltrates. 5. DVT prophylaxis. 6. P.r.n. bronchodilators. 7. Continue empiric antibiotic, vancomycin and Levaquin. 8. I will make further recommendations after review of CT chest. DANYELLE RUSHING MD DR: TISHA/jen JOB#: [id number] / [id number]
--- NOTE | 2019-04-15 10:36 | PDOC2 ---
NATALIE SOTO MANUFACTURING ELECTRICIAN 04/15/19 1035: CARDIAC CONSULT DATE OF CONSULT Date of Consult DATE: 04/15/19 TIME: 09:58 REASON FOR CONSULT Reason for Consult: abnormal 12 lead, rasta REFERRING PHYSICIAN Referring Physician: SOURCE Source: Chart review, Patient HISTORY OF PRESENT ILLNESS HISTORY OF PRESENT ILLNESS This is a 73 yo female admitted for complains weakness and constipation. Suspicion for aspiration pneumonia, ID following. Consult is for bradycardia. This is known for her and no known or recorded pauses. Pt has not been having any frequent dizziness. She is WC bound but no complains of any previous syncope. She lives with her daughter. Denies any chest pain or SOA. She is currently getting HD and comfortable laying flat. No complains of fever or chills, no recent falls or injury. No complains of vomiting or diarrhea. PAST MEDICAL HISTORY Past Medical History Cardiovascular: HTN, Other (orthostasis; PAD), WAP Pulmonary: Asthma GI: GERD Heme/Onc: Anemia NOS Psych: Anxiety Musculoskeletal: Osteoarthritis Renal/: Chronic renal failure, Benign prostatic enlarg. Endocrine: Diabetes (2), Hypothyroidism PAST SURGICAL HISTORY Past Surgical History Tonsillectomy, Other (LA AV dialysis fistula placement) FAMILY HISTORY Family History: Diabetes, Hypertension SOCIAL HISTORY Smoke: No ALCOHOL: none Drugs: None Lives: with Family CURRENT MEDICATIONS CURRENT MEDICATIONS Current Medications Medications (Trade) Dose Ordered Sig/Kenney Route PRN Reason Start Time Stop Time Status Last Admin Dose Admin Vancomycin HCl (Vanco Per Pharmacy) 1 each PRN DAILY PRN MC SEE COMMENTS 04/14/19 13:15 04/14/19 18:39 Vancomycin HCl 2 gm/Sodium Chloride 500 ml @ 250 mls/hr 1X ONCE IV 04/14/19 13:30 04/14/19 15:29 DC 04/14/19 18:29 Levofloxacin/ Dextrose 100 ml @ 100 mls/hr 1X ONCE IV 04/14/19 13:45 04/14/19 14:44 DC 04/14/19 13:54 Heparin Sodium (Porcine) (Heparin Sodium) 5,000 unit Q8HRS SQ 04/14/19 22:00 04/15/19 06:13 Gabapentin (Neurontin) 300 mg QHS PO 04/14/19 21:00 04/14/19 21:21 Sevelamer Carbonate (Renvela) 800 mg TIDWMEALS PO 04/14/19 17:30 04/14/19 17:35 Warfarin Sodium (Coumadin) 7.5 mg DAILY16 PO 04/14/19 17:11 04/14/19 17:35 Albuterol Sulfate (Ventolin Neb Soln) 2.5 mg RTBID NEB 04/14/19 20:00 04/15/19 07:45 Famotidine (Pepcid) 20 mg Q48H PO 04/14/19 21:00 04/14/19 21:22 Dextrose (Dextrose 50%-Water Syringe) 12.5 gm PRN Q15MIN PRN IV SEE COMMENTS 04/14/19 17:15 04/15/19 07:50 Sodium Bicarbonate (Sodium Bicarb Adult 8.4% Syr) 100 meq 1X ONCE IV 04/14/19 20:00 04/14/19 20:05 DC 04/14/19 20:09 ALLERGIES ALLERGIES: Coded Allergies: No Known Medication Allergies (Verified Allergy, Unknown, 05/07/17) ROS Review of System 14 point ROS evaluated with pertinent positives noted per HPI PHYSICAL EXAM General: Alert, Oriented X3, Cooperative HEENT: Atraumatic, Mucous membr. moist/pink, Other (dry oral mucosa) Lungs: Other (basilar crackles) Heart: Regular rate (SR/SB with WAP with occasional PVCs) Abdomen: Normal bowel sounds, Soft, No tenderness Extremities: Other (trace LE edema) Skin: No rashes Neuro: Normal speech, Sensation intact Psych/Mental Status: Mental status NL, Mood NL MUSCULOSKELETAL: Osteoarthritic changes both hands VITALS/I&O VITALS/I&O: Vital Signs Date Time Temp Pulse Resp B/P (MAP) Pulse Ox O2 Delivery O2 Flow Rate FiO2 04/15/19 07:50 96 BiPAP/CPAP 04/15/19 07:00 98.2 50 20 143/65 (91) 98.2 I & O 04/14/19 04/14/19 04/15/19 15:00 23:00 07:00 Intake Total 0 ml 210 ml Balance 0 ml 210 ml LABS Lab: Laboratory Tests Test 04/14/19 12:15 04/14/19 16:20 04/14/19 17:04 04/14/19 18:00 White Blood Count 4.0 x10^3/uL (4.0-11.0) Red Blood Count 3.42 x10^6/uL (3.50-5.40) L Hemoglobin 11.3 g/dL (12.0-15.5) L Hematocrit 36.9 % (36.0-47.0) Mean Corpuscular Volume 108 fL (79-100) H Mean Corpuscular Hemoglobin 33 pg (25-35) Mean Corpuscular Hemoglobin Concent 31 g/dL (31-37) Red Cell Distribution Width 16.5 % (11.5-14.5) H Platelet Count 154 x10^3/uL (140-400) Neutrophils (%) (Auto) 59 % (31-73) Lymphocytes (%) (Auto) 27 % (24-48) Monocytes (%) (Auto) 10 % (0-9) H Eosinophils (%) (Auto) 3 % (0-3) Basophils (%) (Auto) 1 % (0-3) Neutrophils # (Auto) 2.4 x10^3/uL (1.8-7.7) Lymphocytes # (Auto) 1.1 x10^3/uL (1.0-4.8) Monocytes # (Auto) 0.4 x10^3/uL (0.0-1.1) Eosinophils # (Auto) 0.1 x10^3/uL (0.0-0.7) Basophils # (Auto) 0.0 x10^3/uL (0.0-0.2) Prothrombin Time 30.5 SEC (11.7-14.0) H Prothrombin Time INR 2.9 (0.8-1.1) H O2 Saturation 91 % (92-99) L 97 % (92-99) Arterial Blood pH 7.18 (7.35-7.45) *L 7.23 (7.35-7.45) L Arterial Blood pCO2 at Patient Temp 49 mmHg (35-46) H 46 mmHg (35-46) Arterial Blood pO2 at Patient Temp 60 mmHg (65-108) L 104 mmHg (65-108) Arterial Blood HCO3 18 mmol/L (21-28) L 19 mmol/L (21-28) L Arterial Blood Base Excess -11 mmol/L (-3-3) L -8 mmol/L (-3-3) L FiO2 21 30 Sodium Level 141 mmol/L (136-145) Potassium Level 3.7 mmol/L (3.5-5.1) Chloride Level 108 mmol/L (98-107) H Carbon Dioxide Level 22 mmol/L (21-32) Anion Gap 11 (6-14) Blood Urea Nitrogen 14 mg/dL (7-20) Creatinine 4.6 mg/dL (0.6-1.0) H Estimated GFR (Cockcroft-Gault) 11.2 BUN/Creatinine Ratio 3 (6-20) L Glucose Level 79 mg/dL (70-99) Lactic Acid Level 0.7 mmol/L (0.4-2.0) Calcium Level 8.4 mg/dL (8.5-10.1) L Magnesium Level 1.8 mg/dL (1.8-2.4) Total Bilirubin 0.5 mg/dL (0.2-1.0) Aspartate Amino Transferase (AST) 18 U/L (15-37) Alanine Aminotransferase (ALT) 11 U/L (14-59) L Alkaline Phosphatase 457 U/L (46-116) H Troponin I Quantitative 0.040 ng/mL (0.000-0.055) 0.024 ng/mL (0.000-0.055) DG-But-G-Type Natriuretic Peptide > 07591 pg/mL (0-449) H Total Protein 7.1 g/dL (6.4-8.2) Albumin 3.3 g/dL (3.4-5.0) L Albumin/Globulin Ratio 0.9 (1.0-1.7) L Lipase 47 U/L (73-393) L Procalcitonin 0.67 ng/mL (0.00-0.10) H Thyroid Stimulating Hormone (TSH) 10.973 uIU/mL (0.358-3.74) H Salicylates Level < 2.8 mg/dL (2.8-20.0) L Salicylate Last Dose Date Unknown Salicylate Last Dose Time Unknown Acetaminophen Level < 2 mcg/ml (10-30) L Acetaminophen Last Dose Date Unknown Acetaminophen Last Dose Time Unknown Ethyl Alcohol Level < 10 mg/dL (0-10) Glucose (Fingerstick) 55 mg/dL (70-99) L Test 04/14/19 18:45 04/14/19 20:34 04/15/19 02:58 04/15/19 07:41 Glucose (Fingerstick) 79 mg/dL (70-99) 139 mg/dL (70-99) H 70 mg/dL (70-99) White Blood Count 3.8 x10^3/uL (4.0-11.0) L Red Blood Count 3.40 x10^6/uL (3.50-5.40) L Hemoglobin 11.3 g/dL (12.0-15.5) L Hematocrit 35.9 % (36.0-47.0) L Mean Corpuscular Volume 106 fL (79-100) H Mean Corpuscular Hemoglobin 33 pg (25-35) Mean Corpuscular Hemoglobin Concent 32 g/dL (31-37) Red Cell Distribution Width 17.2 % (11.5-14.5) H Platelet Count 140 x10^3/uL (140-400) Neutrophils (%) (Auto) 62 % (31-73) Lymphocytes (%) (Auto) 25 % (24-48) Monocytes (%) (Auto) 10 % (0-9) H Eosinophils (%) (Auto) 2 % (0-3) Basophils (%) (Auto) 1 % (0-3) Neutrophils # (Auto) 2.3 x10^3/uL (1.8-7.7) Lymphocytes # (Auto) 0.9 x10^3/uL (1.0-4.8) L Monocytes # (Auto) 0.4 x10^3/uL (0.0-1.1) Eosinophils # (Auto) 0.1 x10^3/uL (0.0-0.7) Basophils # (Auto) 0.0 x10^3/uL (0.0-0.2) Prothrombin Time 32.7 SEC (11.7-14.0) H Prothrombin Time INR 3.2 (0.8-1.1) H Sodium Level 142 mmol/L (136-145) Potassium Level 3.7 mmol/L (3.5-5.1) Chloride Level 108 mmol/L (98-107) H Carbon Dioxide Level 22 mmol/L (21-32) Anion Gap 12 (6-14) Blood Urea Nitrogen 16 mg/dL (7-20) Creatinine 4.9 mg/dL (0.6-1.0) H Estimated GFR (Cockcroft-Gault) 10.4 Glucose Level 81 mg/dL (70-99) Calcium Level 8.2 mg/dL (8.5-10.1) L Test 04/15/19 08:18 04/15/19 08:29 Glucose (Fingerstick) 89 mg/dL (70-99) O2 Saturation 98 % (92-99) Arterial Blood pH 7.22 (7.35-7.45) L Arterial Blood pCO2 at Patient Temp 51 mmHg (35-46) H Arterial Blood pO2 at Patient Temp 130 mmHg (65-108) H Arterial Blood HCO3 20 mmol/L (21-28) L Arterial Blood Base Excess -8 mmol/L (-3-3) L Oxyhemoglobin 97.1 % Methemoglobin 0.4 % (0.0-1.9) Carbon Monoxide, Quantitative 0.9 % (0.0-1.9) FiO2 30 Laboratory Tests 04/14/19 12:15 04/15/19 02:58 Laboratory Tests 04/14/19 12:15 04/15/19 02:58 ECHOCARDIOGRAM ECHOCARDIOGRAM <Conclusion> The left ventricle is normal size. Left ventricle systolic function is low normal. The Ejection Fraction is 50-55%. There is no significant aortic valvular stenosis. Doppler and Color Flow revealed no significant aortic regurgitation. Doppler and Color-flow revealed trace mitral regurgitation. Doppler and Color Flow revealed mild tricuspid regurgitation. The PA pressure was estimated at 44 mmHg. DATE: 01/25/19 1239 ASSESSMENT/PLAN ASSESSMENT/PLAN 1. Weakness with possible aspiration pneumonia: ID following 2. Known asymptomatic sinus bradycardia with WAP/IVCD:: lowest 40s. thyroid issues contributing 3. HTN: controlled 4. HLP 5. DM2 6. Morbid obesity 7. ESRD 8. PAD: clinically stable. 9. Warfarin therapy: due to previous RIJ/AV rhombus/occlusion? INR 3.2 10. Debility: WC bound 11. Acute on chronic diastolic CHF: appears compensated 12. Hx of orthostasis: on midodrine 13. Hypothyroidism: TSH 11, per PCP Recommendations 1. No AV petr blocking agents. Will consider for MCOT. 2. Secondary prevention measures 3. Recent TTE reviewed. EF 50-55% 4. Fluid off loading per HD 5. Supportive care, follow up in office. LEXUS THORNE MD 04/15/19 1622: CARDIAC CONSULT ASSESSMENT/PLAN ASSESSMENT/PLAN Patient seen and examined. Agree with FACILITIES PAINTER's assessment and plan. Sinus bradycardia asymptomatic. No significant pauses noted on telemetry. Agree with avoiding rate lowering agents and plan outpatient event monitor to rule out sick sinus syndrome Recent 2-D echo showed normal LV function Continue fluid removal with hemodialysis per nephrology team Thank you for your consultation NATALIE SOTO APRN Apr 15, 2019 10:35 LEXUS THORNE MD Apr 15, 2019 16:22
--- NOTE | 2019-04-15 11:22 | PDOC2 ---
CONSULT Date of Consult Date of Consult DATE: 04/15/19 TIME: 11:22 Reason for Consult Reason for Consult: ESRD TTS Source Source: Chart review, Patient History of Present Illness Reason for Visit: Pt is a 73-year-old -[place] female with a past medical history of diabetes mellitus type 2, coronary artery disease, and ESRD on hemodialysis, who over the last 2-3 days has felt "woozy, drowsy, and weak." She complains of sore throat, dry cough, and nasal congestion. Denies fevers, chills She complains of constipation. Her last bowel movement was almost a week ago. She denies nausea, vomiting, ABG pH of 7.18 on room air satting 91%. X-ray revealed [id number] right pleural effusion with lower lobe infiltrate, pulmonary congestion and cardiomegaly, She was hospitalized a couple of weeks ago for an occluded fistula, status post fistulogram, thrombolysis, thrombosed HeRO graft, and angioplasty of outflow vein stenosis on 04/01/2019. Seen on HD, tolerating well. No complaints Past Medical History Cardiovascular: HTN, Other Pulmonary: Asthma GI: GERD Heme/Onc: Anemia NOS, Cancer Psych: Anxiety Musculoskeletal: Osteoarthritis Renal/: Chronic renal failure Endocrine: Diabetes, Hypothyroidism Past Surgical History Past Surgical History: Tonsillectomy, Hysterectomy, Other Family History Family History: Diabetes, Hypertension Social History No ALCOHOL: none Drugs: None Lives: Alone Current Problem List Problem List Problems Medical Problems: (1) Right lower lobe pneumonia Status: Acute Current Medications Current Medications Current Medications Levofloxacin/ Dextrose (Levaquin Per Pharmacy) 1 each PRN DAILY PRN MC SEE COMMENTS; Start 04/14/19 at 13:15; Stop 04/14/19 at 15:43; Status DC Vancomycin HCl (Vanco Per Pharmacy) 1 each PRN DAILY PRN MC SEE COMMENTS Last administered on 04/14/19at 18:39; Start 04/14/19 at 13:15 Vancomycin HCl 2 gm/Sodium Chloride 500 ml @ 250 mls/hr 1X ONCE IV Last administered on 04/14/19at 18:29; Start 04/14/19 at 13:30; Stop 04/14/19 at 15:29; Status DC Levofloxacin/ Dextrose 100 ml @ 100 mls/hr 1X ONCE IV Last administered on 04/14/19at 13:54; Start 04/14/19 at 13:45; Stop 04/14/19 at 14:44; Status DC Levofloxacin/ Dextrose 100 ml @ 100 mls/hr Q48H IV ; Start 04/16/19 at 14:00; Status Cancel Acetaminophen (Tylenol) 650 mg PRN Q4HRS PRN PO TEMP OVER 100.4F OR MILD PAIN; Start 04/14/19 at 15:45 Al Hydroxide/Mg Hydroxide (Mylanta Plus Xs) 30 ml PRN DAILY PRN PO HEARTBURN / GAS; Start 04/14/19 at 15:45 Clonidine HCl (Catapres) 0.1 mg PRN Q6HRS PRN PO SBP>160 OR DBP>90; Start 04/14/19 at 15:45 Docusate Sodium (Colace) 100 mg PRN BID PRN PO CONSTIPATION; Start 04/14/19 at 15:45 Enoxaparin Sodium (Lovenox 40mg Syringe) 40 mg Q24H SQ ; Start 04/14/19 at 18:00; Status Cancel Heparin Sodium (Porcine) (Heparin Sodium) 5,000 unit Q8HRS SQ Last administered on 04/15/19at 06:13; Start 04/14/19 at 22:00 Amlodipine Besylate (Norvasc) 5 mg DAILY PO ; Start 04/14/19 at 17:30 Aspirin (Ecotrin) 81 mg DAILY PO ; Start 04/14/19 at 17:30 Cinacalcet (Sensipar) 30 mg DAILY PO ; Start 04/14/19 at 17:30 Fluticasone Propionate (Flonase) 2 spray DAILY NS ; Start 04/14/19 at 17:30 Vitamin B Complex/ Vitamin C (Sandra-Donovan) 1 tab DAILY PO ; Start 04/14/19 at 17:30 Gabapentin (Neurontin) 300 mg QHS PO Last administered on 04/14/19at 21:21; Start 04/14/19 at 21:00 Levothyroxine Sodium (Synthroid) 50 mcg DAILY PO ; Start 04/14/19 at 17:00; Stop 04/15/19 at 08:38; Status DC Midodrine (Proamatine) 5 mg [id number] PO ; Start 04/14/19 at 18:00 Sevelamer Carbonate (Renvela) 800 mg TIDWMEALS PO Last administered on 04/14/19at 17:35; Start 04/14/19 at 17:30 Warfarin Sodium (Coumadin) 7.5 mg DAILY16 PO Last administered on 04/14/19at 17:35; Start 04/14/19 at 17:11; Stop 04/15/19 at 10:15; Status DC Albuterol Sulfate (Ventolin Neb Soln) 2.5 mg RTBID NEB Last administered on 04/15/19at 07:45; Start 04/14/19 at 20:00 Famotidine (Pepcid) 20 mg Q48H PO Last administered on 04/14/19at 21:22; Start 04/14/19 at 21:00 Warfarin Sodium (Coumadin Per Pharmacy) 1 each PRN DAILY PRN MC SEE COMMENTS; Start 04/14/19 at 17:15 Dextrose (Dextrose 50%-Water Syringe) 12.5 gm PRN Q15MIN PRN IV SEE COMMENTS Last administered on 04/15/19at 07:50; Start 04/14/19 at 17:15 Vancomycin HCl (Vancomycin Random Level) 1 each 1X ONCE MC ; Start 04/17/19 at 06:00; Stop 04/17/19 at 06:01 Sodium Bicarbonate (Sodium Bicarb Adult 8.4% Syr) 100 meq 1X ONCE IV Last administered on 04/14/19at 20:09; Start 04/14/19 at 20:00; Stop 04/14/19 at 20:05; Status DC Sodium Chloride 1,000 ml @ 1,000 mls/hr Q1H PRN IV hypotension; Start 04/15/19 at 07:35; Stop 04/15/19 at 13:34 Albumin Human 200 ml @ 200 mls/hr 1X PRN PRN IV Hypotension; Start 04/15/19 at 07:45; Stop 04/15/19 at 13:44 Acetaminophen (Tylenol) 500 mg 1X PRN PRN PO MILD PAIN / TEMP; Start 04/15/19 at 07:45; Stop 04/16/19 at 07:44 Diphenhydramine HCl (Benadryl) 25 mg 1X PRN PRN IV ITCHING; Start 04/15/19 at 07:45; Stop 04/16/19 at 07:44 Diphenhydramine HCl (Benadryl) 25 mg 1X PRN PRN IV ITCHING; Start 04/15/19 at 07:45; Stop 04/16/19 at 07:44 Sodium Chloride 1,000 ml @ 400 mls/hr Q2H30M PRN IV PATENCY; Start 04/15/19 at 07:35; Stop 04/15/19 at 19:34 Info (PHARMACY MONITORING -- do not chart) 1 each PRN DAILY PRN MC SEE COMMENTS; Start 04/15/19 at 07:45 Info (PHARMACY MONITORING -- do not chart) 1 each PRN DAILY PRN MC SEE KAUR NTS; Start 04/15/19 at 07:45; Status UNV Lidocaine HCl (Xylocaine-Mpf 1% 2ml Vial) 2 ml 1X ONCE INJ ; Start 04/15/19 at 07:45; Stop 04/15/19 at 07:52; Status DC Levothyroxine Sodium (Synthroid) 100 mcg DAILY06 PO ; Start 04/15/19 at 09:00 Piperacillin Sod/ Tazobactam Sod 2.25 gm/Sodium Chloride 50 ml @ 100 mls/hr Q8HRS IV ; Start 04/15/19 at 12:00; Status Cancel Piperacillin Sod/ Tazobactam Sod (Zosyn Per Pharmacy) 1 each PRN DAILY PRN MC SEE COMMENTS; Start 04/15/19 at 10:30 Piperacillin Sod/ Tazobactam Sod 2.25 gm/Sodium Chloride 50 ml @ 100 mls/hr Q8H IV ; Start 04/15/19 at 11:00 Active Scripts Active Gabapentin 300 Mg Capsule 300 Mg PO QHS 30 Days Reported Coumadin (Warfarin Sodium) 7.5 Mg Tablet 1 Tab PO DAILY Hydrocodone-Apap 7.5-325 (Hydrocodone Bit/Acetaminophen) 1 Each Tablet 1 Tab PO BID PRN Fluticasone Propionate Nasal [place] (Fluticasone Propionate) 16 Gm [place].susp 2 [place] NS DAILY Renvela (Sevelamer Carbonate) 800 Mg Tablet 800 Mg PO TIDWMEALS Ibuprofen 800 Mg Tablet 800 Mg PO PRN Q6HRS PRN Vitamin D3 (Cholecalciferol (Vitamin D3)) 2,000 Unit Tab.chew 1,000 Unit PO Ventolin Hfa Inhaler (Albuterol Sulfate) 18 Gm Hfa.aer.ad 2 Puff INH BID Amlodipine Besylate 5 Mg Tablet 5 Mg PO DAILY Nephro-Donovan Tablet (Folic Acid/Vitamin B Comp W-C) 0.8 Mg Tablet 0.8 Mg PO DAILY Sensipar (Cinacalcet Hcl) 30 Mg Tablet 30 Mg PO DAILY Low Dose Aspirin Ec (Aspirin) 81 Mg Tablet.dr 1 Tab PO DAILY Midodrine Hcl 5 Mg Tablet 5 Mg PO PRN PRN Levothyroxine Sodium 50 Mcg Tablet 50 Mcg PO DAILY Ranitidine Hcl 300 Mg Capsule 300 Mg PO BID Allergies Allergies: Coded Allergies: No Known Medication Allergies (Verified Allergy, Unknown, 05/07/17) ROS Review of System Per HPI Physical Exam Physical Exam GENERAL: NAD HEENT:Oropharynx pink and moist. NECK: Supple. LUNGS: Clear to auscultation. HEART: S1, S2. ABDOMEN: Obese, soft, a EXTREMITIES: No gross edema . LUE-AVF SKIN: No rash. NEUROLOGIC: Awake and answering questions appropriately. No Bonds Vital Signs Vital Signs Date Time Temp Pulse Resp B/P (MAP) Pulse Ox O2 Delivery O2 Flow Rate FiO2 04/15/19 08:00 Bi-pap 04/15/19 07:50 96 04/15/19 07:00 98.2 50 20 143/65 (91) 98.2 Assessment & Plan ESRD - On HD TTS Seen on HD, tolerating well, continue as ordered, Truman Pelletier Access- Had thrombosed left upper extremity HERO recently S/P Left upper extremity fistulogram, Pharmacomechanical thrombolysis thrombosed Hero graft.,Angioplasty of outflow vein stenosis on 04/01 dialysis graft DM- per primary HTN- stable Anemia - Hgb > 10 No indication for FRED Leukopenia RLL infiltrate and pleural effusion - Pulm following - Acute respiratory failure secondary to combined metabolic and respiratory acidosis. Bicarb Increased to 40 in Dialysate Scheduled for CT scan Sinus disease on CT Morbid obesity Labs Labs Laboratory Tests Test 04/14/19 12:15 04/14/19 16:20 04/14/19 17:04 04/14/19 18:00 White Blood Count 4.0 x10^3/uL (4.0-11.0) Red Blood Count 3.42 x10^6/uL (3.50-5.40) Hemoglobin 11.3 g/dL (12.0-15.5) Hematocrit 36.9 % (36.0-47.0) Mean Corpuscular Volume 108 fL (79-100) Mean Corpuscular Hemoglobin 33 pg (25-35) Mean Corpuscular Hemoglobin Concent 31 g/dL (31-37) Red Cell Distribution Width 16.5 % (11.5-14.5) Platelet Count 154 x10^3/uL (140-400) Neutrophils (%) (Auto) 59 % (31-73) Lymphocytes (%) (Auto) 27 % (24-48) Monocytes (%) (Auto) 10 % (0-9) Eosinophils (%) (Auto) 3 % (0-3) Basophils (%) (Auto) 1 % (0-3) Neutrophils # (Auto) 2.4 x10^3/uL (1.8-7.7) Lymphocytes # (Auto) 1.1 x10^3/uL (1.0-4.8) Monocytes # (Auto) 0.4 x10^3/uL (0.0-1.1) Eosinophils # (Auto) 0.1 x10^3/uL (0.0-0.7) Basophils # (Auto) 0.0 x10^3/uL (0.0-0.2) Prothrombin Time 30.5 SEC (11.7-14.0) Prothromb Time International Ratio 2.9 (0.8-1.1) O2 Saturation 91 % (92-99) 97 % (92-99) Arterial Blood pH 7.18 (7.35-7.45) 7.23 (7.35-7.45) Arterial Blood pCO2 at Patient Temp 49 mmHg (35-46) 46 mmHg (35-46) Arterial Blood pO2 at Patient Temp 60 mmHg (65-108) 104 mmHg (65-108) Arterial Blood HCO3 18 mmol/L (21-28) 19 mmol/L (21-28) Arterial Blood Base Excess -11 mmol/L (-3-3) -8 mmol/L (-3-3) FiO2 21 30 Sodium Level 141 mmol/L (136-145) Potassium Level 3.7 mmol/L (3.5-5.1) Chloride Level 108 mmol/L (98-107) Carbon Dioxide Level 22 mmol/L (21-32) Anion Gap 11 (6-14) Blood Urea Nitrogen 14 mg/dL (7-20) Creatinine 4.6 mg/dL (0.6-1.0) Estimated GFR (Cockcroft-Gault) 11.2 BUN/Creatinine Ratio 3 (6-20) Glucose Level 79 mg/dL (70-99) Lactic Acid Level 0.7 mmol/L (0.4-2.0) Calcium Level 8.4 mg/dL (8.5-10.1) Magnesium Level 1.8 mg/dL (1.8-2.4) Total Bilirubin 0.5 mg/dL (0.2-1.0) Aspartate Amino Transf (AST/SGOT) 18 U/L (15-37) Alanine Aminotransferase (ALT/SGPT) 11 U/L (14-59) Alkaline Phosphatase 457 U/L (46-116) Troponin I Quantitative 0.040 ng/mL (0.000-0.055) 0.024 ng/mL (0.000-0.055) EG-Fkz-X-Type Natriuretic Peptide > 59371 pg/mL (0-449) Total Protein 7.1 g/dL (6.4-8.2) Albumin 3.3 g/dL (3.4-5.0) Albumin/Globulin Ratio 0.9 (1.0-1.7) Lipase 47 U/L (73-393) Procalcitonin 0.67 ng/mL (0.00-0.10) Thyroid Stimulating Hormone (TSH) 10.973 uIU/mL (0.358-3.74) Salicylates Level < 2.8 mg/dL (2.8-20.0) Salicylate Last Dose Date Unknown Salicylate Last Dose Time Unknown Acetaminophen Level < 2 mcg/ml (10-30) Acetaminophen Last Dose Date Unknown Acetaminophen Last Dose Time Unknown Ethyl Alcohol Level < 10 mg/dL (0-10) Glucose (Fingerstick) 55 mg/dL (70-99) Test 04/14/19 18:45 04/14/19 20:34 04/15/19 02:58 04/15/19 07:41 Glucose (Fingerstick) 79 mg/dL (70-99) 139 mg/dL (70-99) 70 mg/dL (70-99) White Blood Count 3.8 x10^3/uL (4.0-11.0) Red Blood Count 3.40 x10^6/uL (3.50-5.40) Hemoglobin 11.3 g/dL (12.0-15.5) Hematocrit 35.9 % (36.0-47.0) Mean Corpuscular Volume 106 fL (79-100) Mean Corpuscular Hemoglobin 33 pg (25-35) Mean Corpuscular Hemoglobin Concent 32 g/dL (31-37) Red Cell Distribution Width 17.2 % (11.5-14.5) Platelet Count 140 x10^3/uL (140-400) Neutrophils (%) (Auto) 62 % (31-73) Lymphocytes (%) (Auto) 25 % (24-48) Monocytes (%) (Auto) 10 % (0-9) Eosinophils (%) (Auto) 2 % (0-3) Basophils (%) (Auto) 1 % (0-3) Neutrophils # (Auto) 2.3 x10^3/uL (1.8-7.7) Lymphocytes # (Auto) 0.9 x10^3/uL (1.0-4.8) Monocytes # (Auto) 0.4 x10^3/uL (0.0-1.1) Eosinophils # (Auto) 0.1 x10^3/uL (0.0-0.7) Basophils # (Auto) 0.0 x10^3/uL (0.0-0.2) Prothrombin Time 32.7 SEC (11.7-14.0) Prothromb Time International Ratio 3.2 (0.8-1.1) Sodium Level 142 mmol/L (136-145) Potassium Level 3.7 mmol/L (3.5-5.1) Chloride Level 108 mmol/L (98-107) Carbon Dioxide Level 22 mmol/L (21-32) Anion Gap 12 (6-14) Blood Urea Nitrogen 16 mg/dL (7-20) Creatinine 4.9 mg/dL (0.6-1.0) Estimated GFR (Cockcroft-Gault) 10.4 Glucose Level 81 mg/dL (70-99) Calcium Level 8.2 mg/dL (8.5-10.1) Test 04/15/19 08:18 04/15/19 08:29 Glucose (Fingerstick) 89 mg/dL (70-99) O2 Saturation 98 % (92-99) Arterial Blood pH 7.22 (7.35-7.45) Arterial Blood pCO2 at Patient Temp 51 mmHg (35-46) Arterial Blood pO2 at Patient Temp 130 mmHg (65-108) Arterial Blood HCO3 20 mmol/L (21-28) Arterial Blood Base Excess -8 mmol/L (-3-3) Oxyhemoglobin 97.1 % Methemoglobin 0.4 % (0.0-1.9) Carbon Monoxide, Quantitative 0.9 % (0.0-1.9) FiO2 30 Laboratory Tests Test 04/14/19 12:15 04/14/19 16:20 04/14/19 17:04 04/14/19 18:00 White Blood Count 4.0 x10^3/uL (4.0-11.0) Red Blood Count 3.42 x10^6/uL (3.50-5.40) Hemoglobin 11.3 g/dL (12.0-15.5) Hematocrit 36.9 % (36.0-47.0) Mean Corpuscular Volume 108 fL (79-100) Mean Corpuscular Hemoglobin 33 pg (25-35) Mean Corpuscular Hemoglobin Concent 31 g/dL (31-37) Red Cell Distribution Width 16.5 % (11.5-14.5) Platelet Count 154 x10^3/uL (140-400) Neutrophils (%) (Auto) 59 % (31-73) Lymphocytes (%) (Auto) 27 % (24-48) Monocytes (%) (Auto) 10 % (0-9) Eosinophils (%) (Auto) 3 % (0-3) Basophils (%) (Auto) 1 % (0-3) Neutrophils # (Auto) 2.4 x10^3/uL (1.8-7.7) Lymphocytes # (Auto) 1.1 x10^3/uL (1.0-4.8) Monocytes # (Auto) 0.4 x10^3/uL (0.0-1.1) Eosinophils # (Auto) 0.1 x10^3/uL (0.0-0.7) Basophils # (Auto) 0.0 x10^3/uL (0.0-0.2) Prothrombin Time 30.5 SEC (11.7-14.0) Prothromb Time International Ratio 2.9 (0.8-1.1) O2 Saturation 91 % (92-99) 97 % (92-99) Arterial Blood pH 7.18 (7.35-7.45) 7.23 (7.35-7.45) Arterial Blood pCO2 at Patient Temp 49 mmHg (35-46) 46 mmHg (35-46) Arterial Blood pO2 at Patient Temp 60 mmHg (65-108) 104 mmHg (65-108) Arterial Blood HCO3 18 mmol/L (21-28) 19 mmol/L (21-28) Arterial Blood Base Excess -11 mmol/L (-3-3) -8 mmol/L (-3-3) FiO2 21 30 Sodium Level 141 mmol/L (136-145) Potassium Level 3.7 mmol/L (3.5-5.1) Chloride Level 108 mmol/L (98-107) Carbon Dioxide Level 22 mmol/L (21-32) Anion Gap 11 (6-14) Blood Urea Nitrogen 14 mg/dL (7-20) Creatinine 4.6 mg/dL (0.6-1.0) Estimated GFR (Cockcroft-Gault) 11.2 BUN/Creatinine Ratio 3 (6-20) Glucose Level 79 mg/dL (70-99) Lactic Acid Level 0.7 mmol/L (0.4-2.0) Calcium Level 8.4 mg/dL (8.5-10.1) Magnesium Level 1.8 mg/dL (1.8-2.4) Total Bilirubin 0.5 mg/dL (0.2-1.0) Aspartate Amino Transf (AST/SGOT) 18 U/L (15-37) Alanine Aminotransferase (ALT/SGPT) 11 U/L (14-59) Alkaline Phosphatase 457 U/L (46-116) Troponin I Quantitative 0.040 ng/mL (0.000-0.055) 0.024 ng/mL (0.000-0.055) SU-Lpz-U-Type Natriuretic Peptide > 59584 pg/mL (0-449) Total Protein 7.1 g/dL (6.4-8.2) Albumin 3.3 g/dL (3.4-5.0) Albumin/Globulin Ratio 0.9 (1.0-1.7) Lipase 47 U/L (73-393) Procalcitonin 0.67 ng/mL (0.00-0.10) Thyroid Stimulating Hormone (TSH) 10.973 uIU/mL (0.358-3.74) Salicylates Level < 2.8 mg/dL (2.8-20.0) Salicylate Last Dose Date Unknown Salicylate Last Dose Time Unknown Acetaminophen Level < 2 mcg/ml (10-30) Acetaminophen Last Dose Date Unknown Acetaminophen Last Dose Time Unknown Ethyl Alcohol Level < 10 mg/dL (0-10) Glucose (Fingerstick) 55 mg/dL (70-99) Test 04/14/19 18:45 04/14/19 20:34 04/15/19 02:58 04/15/19 07:41 Glucose (Fingerstick) 79 mg/dL (70-99) 139 mg/dL (70-99) 70 mg/dL (70-99) White Blood Count 3.8 x10^3/uL (4.0-11.0) Red Blood Count 3.40 x10^6/uL (3.50-5.40) Hemoglobin 11.3 g/dL (12.0-15.5) Hematocrit 35.9 % (36.0-47.0) Mean Corpuscular Volume 106 fL (79-100) Mean Corpuscular Hemoglobin 33 pg (25-35) Mean Corpuscular Hemoglobin Concent 32 g/dL (31-37) Red Cell Distribution Width 17.2 % (11.5-14.5) Platelet Count 140 x10^3/uL (140-400) Neutrophils (%) (Auto) 62 % (31-73) Lymphocytes (%) (Auto) 25 % (24-48) Monocytes (%) (Auto) 10 % (0-9) Eosinophils (%) (Auto) 2 % (0-3) Basophils (%) (Auto) 1 % (0-3) Neutrophils # (Auto) 2.3 x10^3/uL (1.8-7.7) Lymphocytes # (Auto) 0.9 x10^3/uL (1.0-4.8) Monocytes # (Auto) 0.4 x10^3/uL (0.0-1.1) Eosinophils # (Auto) 0.1 x10^3/uL (0.0-0.7) Basophils # (Auto) 0.0 x10^3/uL (0.0-0.2) Prothrombin Time 32.7 SEC (11.7-14.0) Prothromb Time International Ratio 3.2 (0.8-1.1) Sodium Level 142 mmol/L (136-145) Potassium Level 3.7 mmol/L (3.5-5.1) Chloride Level 108 mmol/L (98-107) Carbon Dioxide Level 22 mmol/L (21-32) Anion Gap 12 (6-14) Blood Urea Nitrogen 16 mg/dL (7-20) Creatinine 4.9 mg/dL (0.6-1.0) Estimated GFR (Cockcroft-Gault) 10.4 Glucose Level 81 mg/dL (70-99) Calcium Level 8.2 mg/dL (8.5-10.1) Test 04/15/19 08:18 04/15/19 08:29 Glucose (Fingerstick) 89 mg/dL (70-99) O2 Saturation 98 % (92-99) Arterial Blood pH 7.22 (7.35-7.45) Arterial Blood pCO2 at Patient Temp 51 mmHg (35-46) Arterial Blood pO2 at Patient Temp 130 mmHg (65-108) Arterial Blood HCO3 20 mmol/L (21-28) Arterial Blood Base Excess -8 mmol/L (-3-3) Oxyhemoglobin 97.1 % Methemoglobin 0.4 % (0.0-1.9) Carbon Monoxide, Quantitative 0.9 % (0.0-1.9) FiO2 30 Review All relevant outside records, renal labs, imaging studies, telemetry/EKG's were reviewed. MARIO NOVOA MD Apr 15, 2019 11:22
--- NOTE | 2019-04-15 11:24 | NUR ---
SS following for discharge planning. SS reviewed pt chart. Pt is from home and is currently requiring oxygen. Pt has dialysis at [facility] Aquino,[facility],S, phone: [phone], fax: [phone]. PT/OT currently on hold. SS will continue to follow for discharge planning.
[2019-04-15] MEDS ORDERED: PIPERACILLIN/TAZOBACTAM 2.25 GM in IV NORMAL SALINE 50ML 50 ML IV SCH (12:00)
[2019-04-15 12:08] LABS: CHOLESTEROL/HDL RATIO 2.8
[2019-04-15] MEDS: PIPERACILLIN/TAZOBACTAM 2.25 GM in IV NORMAL SALINE 50ML 50 ML IV SCH ×2 (14:10→20:05)
[2019-04-15] MEDS: LEVOTHYROXINE 100 MCG TABLET PO SCH (14:17)
[2019-04-15] MEDS: FOLIC/VIT B COMP W-C (RENAL) TABLET. PO SCH (14:17)
[2019-04-15] MEDS: CINACALCET HCL 30 MG TABLET PO SCH (14:17)
[2019-04-15] MEDS: ASPIRIN ENTERIC COATED 81 MG TABLET.DR. PO SCH (14:18)
[2019-04-15] MEDS: amLODIPine BESYLATE 5 MG TABLET PO SCH (14:20)
[2019-04-15 14:55] VITALS: BP 131/55
--- NOTE | 2019-04-15 15:34 | NUR ---
Pharmacy Warfarin Dosing Note S:Pharmacy consulted to assist with anticoagulation therapy started with target INR: O:ROSE CAMPOS is a 73 year old F with LABS: Last INR: Last HGB: Last HCT: Last PLT: Last dose of given on at Previous Regimen: Vitamin K given: Drug Interaction Changes: Ongoing Drug Interactions: A:INR of is above desired range. Target range for this patient is: P: Warfarin dose: HOLD TODAY Bridge Therapy: Next INR due IN AM Pharmacy anticoagulation service will continue to follow. MARYCRUZ MAY [facility], 04/15/19 1534
--- NOTE | 2019-04-15 17:29 | PDOC ---
PROGRESS NOTES Subjective Her ABG did not improve last maureen from ER value significantly so she was placed on CPAP and received bicarb but is still drowsy this am and still somewhat acidotic. Being followed now by ID, renal, cardiology and pulm. Blood sugars have been ok after initially being low. Heart is not as bradycardic Objective Afebrile General: groggy but oriented, on Bipap but able to talk Heart: rate about 60 Lungs: clear anteriorly Abd: obese, soft, bowel sounds present Ext: left arm dialysis shunt, minimal LE edema Vital Signs Vital Signs Date Time Temp Pulse Resp B/P (MAP) Pulse Ox O2 Delivery O2 Flow Rate FiO2 04/15/19 14:55 98.7 64 20 131/55 (80) 96 Nasal Cannula 2.0 98.7 I & O Intake and Output 04/15/19 06:59 Intake Total 210 ml Balance 210 ml Intake Oral 210 ml # Bowel Movements 2 Assessment and Plan acute hypercapnic respiratory failure - pulm following - Bipap encephalopathy, likely toxic and metabolic - holding home dose of pain and anxiolytic meds suspected aspiration pneumonia - pulm and ID consuls sphenoid sinusitis per imaging - ID consult 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 Wellington is her usual policy value calculator Bradycardia - check EKG, troponin, Cardiology consult, transfer to tele Joanne HUFF MD Apr 15, 2019 17:29
[2019-04-15 19:00] VITALS: BP 168/71
[2019-04-15] MEDS: GABAPENTIN 300 MG CAPSULE. PO SCH (21:18)
[2019-04-15 23:15] VITALS: BP 134/63
[2019-04-16] VITALS (7 sets, daily range): BP systolic 80–117; BP diastolic 33–64
[2019-04-16] MEDS: PIPERACILLIN/TAZOBACTAM 2.25 GM in IV NORMAL SALINE 50ML 50 ML IV SCH ×4 (03:02→23:04)
[2019-04-16] MEDS: LEVOTHYROXINE 100 MCG TABLET PO SCH (06:24)
[2019-04-16] MEDS: MIDODRINE 5 MG TABLET PO SCH ×4 (06:27→17:19)
[2019-04-16] MEDS: HEPARIN for SUB-Q USE 5,000 UNIT/ML VIAL. SQ SCH ×3 (06:29→21:29)
[2019-04-16 07:43] LABS: PROTHROMBIN TIME PATIENT 32.8 SEC (11.7-14.0)
[2019-04-16] MEDS: ALBUTEROL SULFATE 2.5 MG/3 ML NEBU. NEB SCH ×2 (08:00→20:03)
[2019-04-16] MEDS: SEVELAMER CARBONATE 800 MG TABLET. PO SCH ×3 (08:24→17:02)
[2019-04-16] MEDS: FOLIC/VIT B COMP W-C (RENAL) TABLET. PO SCH (08:25)
[2019-04-16] MEDS: ASPIRIN ENTERIC COATED 81 MG TABLET.DR. PO SCH (08:25)
[2019-04-16] MEDS: CINACALCET HCL 30 MG TABLET PO SCH (08:25)
[2019-04-16] MEDS: FLUTICASONE 50MCG/NASAL SPRAY 16GM BOTTLE. NS SCH (08:26)
[2019-04-16] MEDS: VANCOMYCIN PER PHARMACY MC PRN (08:56)
--- NOTE | 2019-04-16 09:11 | NUR ---
Pharmacy Warfarin Dosing Note S:Pharmacy consulted to assist with anticoagulation therapy started with target INR: 2 -3 O:ROSE CAMPOS is a 73 year old F with DVT/PE LABS: Last INR: 3.2 Last HGB: 11.3 Last HCT: 35.9 Last PLT: 140 Last dose of Hold given on at Previous Regimen: Vitamin K given: N Drug Interaction Changes: Ongoing Drug Interactions: levofloxacin A:INR of 3.2 is above desired range. Target range for this patient is: 2 -3 P: Warfarin dose: Hold Today at 1600 Bridge Therapy: Heparin q8h Next INR due tomorrow Pharmacy anticoagulation service will continue to follow. CARISA HANKINS [facility], 04/16/19 0911
--- NOTE | 2019-04-16 09:35 | PDOC ---
Infectious Disease Note Subjective Subjective c/o decrease coordination/shaking of left arm with picking up objects or using the phone (left-handed) Symtptom started day or so before admission Denies SPENCER/confusion/dizziness/F/C/N/V/D/SOA ROS ROS per HPI Vital Sign Vital Signs Vital Signs Date Time Temp Pulse Resp B/P (MAP) Pulse Ox O2 Delivery O2 Flow Rate FiO2 04/16/19 08:23 97/51 (66) 04/16/19 08:00 Nasal Cannula 2.0 04/16/19 07:34 65 04/16/19 07:10 98.7 18 99 98.7 Physical Exam PHYSICAL EXAM GENERAL: Propped up in bed, alert, NAD HEENT: Mild conjunctival injection right eye and drainage- better Oropharynx pink and moist. Edentulous. NECK: Supple. LUNGS: Clear to auscultation. HEART: S1, S2. ABDOMEN: Obese, soft, and nontender with bowel sounds present. EXTREMITIES: No gross edema or cyanosis. LUE-AVF area bruised SKIN: Warm to touch. No signs of rash. NEUROLOGIC: Awake and answering questions appropriately. PIV Labs Lab Laboratory Tests Test 04/15/19 14:08 04/15/19 17:02 04/15/19 20:48 04/16/19 07:00 Glucose (Fingerstick) 60 mg/dL (70-99) 89 mg/dL (70-99) 94 mg/dL (70-99) Prothrombin Time 32.8 SEC (11.7-14.0) Prothromb Time International Ratio 3.2 (0.8-1.1) Test 04/16/19 07:17 Glucose (Fingerstick) 110 mg/dL (70-99) Micro Microbiology 04/14/19 Blood Culture - Preliminary, Resulted NO GROWTH AFTER 1 DAY Objective Assessment Leukopenia RLL infiltrate and pleural effusion Sinus disease on CT Constipation Bradycardia CKD/HD via AV fistula -s/p fistulogram/thrombolysis/angioplasty, 04/01. Warfarin therapy Morbid obesity Hypothyroidism h/o Proteus (R tetra) Plan Plan of Care vancomycin and Zosyn Off levaquin with bradycardia. will have atypical coverage until Monday 04/16 Says got a flu shot prior to admit f/u chest CT Bowel regimen per primary cardiology rec noted Will wean abx soon based on results Just notified of + blood cult with GPR in 1 of 3 bottles - will cont abx for now initially was going to change to augmentin until + BC Attending Co-Sign Attending Co-Sign The patient was seen and interviewed as well as examined at the bedside. The chart was reviewed. The case was discussed. Agree with the plan of care. KRISTI TEJADA APRN Apr 16, 2019 09:35 CASSANDRA GARBER MD Apr 16, 2019 15:25
--- NOTE | 2019-04-16 10:18 | PDOC ---
PULMONARY PROGRESS NOTES Subjective fully awake, no soa Vitals Vital Signs Date Time Temp Pulse Resp B/P (MAP) Pulse Ox O2 Delivery O2 Flow Rate FiO2 04/16/19 08:23 97/51 (66) 04/16/19 08:00 Nasal Cannula 2.0 04/16/19 07:34 65 04/16/19 07:10 98.7 18 99 98.7 General: Alert, No acute distress Lungs: Other (decrease bases) Cardiovascular: S1 Abdomen: Soft, Other (obese) Extremities: Other (1+edema) Labs Laboratory Tests Test 04/14/19 12:15 04/14/19 16:20 04/14/19 17:04 04/14/19 18:00 White Blood Count 4.0 x10^3/uL (4.0-11.0) Red Blood Count 3.42 x10^6/uL (3.50-5.40) Hemoglobin 11.3 g/dL (12.0-15.5) Hematocrit 36.9 % (36.0-47.0) Mean Corpuscular Volume 108 fL (79-100) Mean Corpuscular Hemoglobin 33 pg (25-35) Mean Corpuscular Hemoglobin Concent 31 g/dL (31-37) Red Cell Distribution Width 16.5 % (11.5-14.5) Platelet Count 154 x10^3/uL (140-400) Neutrophils (%) (Auto) 59 % (31-73) Lymphocytes (%) (Auto) 27 % (24-48) Monocytes (%) (Auto) 10 % (0-9) Eosinophils (%) (Auto) 3 % (0-3) Basophils (%) (Auto) 1 % (0-3) Neutrophils # (Auto) 2.4 x10^3/uL (1.8-7.7) Lymphocytes # (Auto) 1.1 x10^3/uL (1.0-4.8) Monocytes # (Auto) 0.4 x10^3/uL (0.0-1.1) Eosinophils # (Auto) 0.1 x10^3/uL (0.0-0.7) Basophils # (Auto) 0.0 x10^3/uL (0.0-0.2) Prothrombin Time 30.5 SEC (11.7-14.0) Prothromb Time International Ratio 2.9 (0.8-1.1) O2 Saturation 91 % (92-99) 97 % (92-99) Arterial Blood pH 7.18 (7.35-7.45) 7.23 (7.35-7.45) Arterial Blood pCO2 at Patient Temp 49 mmHg (35-46) 46 mmHg (35-46) Arterial Blood pO2 at Patient Temp 60 mmHg (65-108) 104 mmHg (65-108) Arterial Blood HCO3 18 mmol/L (21-28) 19 mmol/L (21-28) Arterial Blood Base Excess -11 mmol/L (-3-3) -8 mmol/L (-3-3) FiO2 21 30 Sodium Level 141 mmol/L (136-145) Potassium Level 3.7 mmol/L (3.5-5.1) Chloride Level 108 mmol/L (98-107) Carbon Dioxide Level 22 mmol/L (21-32) Anion Gap 11 (6-14) Blood Urea Nitrogen 14 mg/dL (7-20) Creatinine 4.6 mg/dL (0.6-1.0) Estimated GFR (Cockcroft-Gault) 11.2 BUN/Creatinine Ratio 3 (6-20) Glucose Level 79 mg/dL (70-99) Lactic Acid Level 0.7 mmol/L (0.4-2.0) Calcium Level 8.4 mg/dL (8.5-10.1) Magnesium Level 1.8 mg/dL (1.8-2.4) Total Bilirubin 0.5 mg/dL (0.2-1.0) Aspartate Amino Transf (AST/SGOT) 18 U/L (15-37) Alanine Aminotransferase (ALT/SGPT) 11 U/L (14-59) Alkaline Phosphatase 457 U/L (46-116) Troponin I Quantitative 0.040 ng/mL (0.000-0.055) 0.024 ng/mL (0.000-0.055) JW-Gsm-H-Type Natriuretic Peptide > 52688 pg/mL (0-449) Total Protein 7.1 g/dL (6.4-8.2) Albumin 3.3 g/dL (3.4-5.0) Albumin/Globulin Ratio 0.9 (1.0-1.7) Lipase 47 U/L (73-393) Procalcitonin 0.67 ng/mL (0.00-0.10) Thyroid Stimulating Hormone (TSH) 10.973 uIU/mL (0.358-3.74) Salicylates Level < 2.8 mg/dL (2.8-20.0) Salicylate Last Dose Date Unknown Salicylate Last Dose Time Unknown Acetaminophen Level < 2 mcg/ml (10-30) Acetaminophen Last Dose Date Unknown Acetaminophen Last Dose Time Unknown Ethyl Alcohol Level < 10 mg/dL (0-10) Glucose (Fingerstick) 55 mg/dL (70-99) Test 04/14/19 18:45 04/14/19 20:34 04/15/19 02:58 04/15/19 07:41 Glucose (Fingerstick) 79 mg/dL (70-99) 139 mg/dL (70-99) 70 mg/dL (70-99) White Blood Count 3.8 x10^3/uL (4.0-11.0) Red Blood Count 3.40 x10^6/uL (3.50-5.40) Hemoglobin 11.3 g/dL (12.0-15.5) Hematocrit 35.9 % (36.0-47.0) Mean Corpuscular Volume 106 fL (79-100) Mean Corpuscular Hemoglobin 33 pg (25-35) Mean Corpuscular Hemoglobin Concent 32 g/dL (31-37) Red Cell Distribution Width 17.2 % (11.5-14.5) Platelet Count 140 x10^3/uL (140-400) Neutrophils (%) (Auto) 62 % (31-73) Lymphocytes (%) (Auto) 25 % (24-48) Monocytes (%) (Auto) 10 % (0-9) Eosinophils (%) (Auto) 2 % (0-3) Basophils (%) (Auto) 1 % (0-3) Neutrophils # (Auto) 2.3 x10^3/uL (1.8-7.7) Lymphocytes # (Auto) 0.9 x10^3/uL (1.0-4.8) Monocytes # (Auto) 0.4 x10^3/uL (0.0-1.1) Eosinophils # (Auto) 0.1 x10^3/uL (0.0-0.7) Basophils # (Auto) 0.0 x10^3/uL (0.0-0.2) Prothrombin Time 32.7 SEC (11.7-14.0) Prothromb Time International Ratio 3.2 (0.8-1.1) Sodium Level 142 mmol/L (136-145) Potassium Level 3.7 mmol/L (3.5-5.1) Chloride Level 108 mmol/L (98-107) Carbon Dioxide Level 22 mmol/L (21-32) Anion Gap 12 (6-14) Blood Urea Nitrogen 16 mg/dL (7-20) Creatinine 4.9 mg/dL (0.6-1.0) Estimated GFR (Cockcroft-Gault) 10.4 Glucose Level 81 mg/dL (70-99) Calcium Level 8.2 mg/dL (8.5-10.1) Triglycerides Level 70 mg/dL (0-150) Cholesterol Level 126 mg/dL (0-200) LDL Cholesterol, Calculated 67 mg/dL (0-100) VLDL Cholesterol, Calculated 14 mg/dL (0-40) Non-HDL Cholesterol Calculated 81 mg/dL (0-129) HDL Cholesterol 45 mg/dL (40-60) Cholesterol/HDL Ratio 2.8 Test 04/15/19 08:18 04/15/19 08:29 04/15/19 14:08 04/15/19 17:02 Glucose (Fingerstick) 89 mg/dL (70-99) 60 mg/dL (70-99) 89 mg/dL (70-99) O2 Saturation 98 % (92-99) Arterial Blood pH 7.22 (7.35-7.45) Arterial Blood pCO2 at Patient Temp 51 mmHg (35-46) Arterial Blood pO2 at Patient Temp 130 mmHg (65-108) Arterial Blood HCO3 20 mmol/L (21-28) Arterial Blood Base Excess -8 mmol/L (-3-3) Oxyhemoglobin 97.1 % Methemoglobin 0.4 % (0.0-1.9) Carbon Monoxide, Quantitative 0.9 % (0.0-1.9) FiO2 30 Test 04/15/19 20:48 04/16/19 07:00 04/16/19 07:17 Glucose (Fingerstick) 94 mg/dL (70-99) 110 mg/dL (70-99) Prothrombin Time 32.8 SEC (11.7-14.0) Prothromb Time International Ratio 3.2 (0.8-1.1) Laboratory Tests Test 04/15/19 14:08 04/15/19 17:02 04/15/19 20:48 04/16/19 07:00 Glucose (Fingerstick) 60 mg/dL (70-99) 89 mg/dL (70-99) 94 mg/dL (70-99) Prothrombin Time 32.8 SEC (11.7-14.0) Prothromb Time International Ratio 3.2 (0.8-1.1) Test 04/16/19 07:17 Glucose (Fingerstick) 110 mg/dL (70-99) Medications Active Scripts Medications Dose Route/Sig Max Daily Dose Days Date Category Gabapentin 300 Mg Capsule 300 Mg PO QHS 30 01/25/19 Rx Coumadin (Warfarin Sodium) 7.5 Mg Tablet 1 Tab PO DAILY 03/13/18 Reported Hydrocodone-Apap 7.5-325 (Hydrocodone Bit/Acetaminophen) 1 Each Tablet 1 Tab PO BID PRN 05/06/17 Reported Fluticasone Propionate Nasal [place] (Fluticasone Propionate) 16 Gm [place].susp 2 [place] NS DAILY 05/06/17 Reported Renvela (Sevelamer Carbonate) 800 Mg Tablet 800 Mg PO TIDWMEALS 05/06/17 Reported Ibuprofen 800 Mg Tablet 800 Mg PO PRN Q6HRS PRN 05/06/17 Reported Vitamin D3 (Cholecalciferol (Vitamin D3)) 2,000 Unit Tab.chew 1,000 Unit PO 05/06/17 Reported Ventolin Hfa Inhaler (Albuterol Sulfate) 18 Gm Hfa.aer.ad 2 Puff INH BID 05/06/17 Reported Amlodipine Besylate 5 Mg Tablet 5 Mg PO DAILY 05/06/17 Reported Nephro-Donovan Tablet (Folic Acid/Vitamin B Comp W-C) 0.8 Mg Tablet 0.8 Mg PO DAILY 12/20/16 Reported Sensipar (Cinacalcet Hcl) 30 Mg Tablet 30 Mg PO DAILY 12/20/16 Reported Low Dose Aspirin Ec (Aspirin) 81 Mg Tablet.dr 1 Tab PO DAILY 03/09/14 Reported Midodrine Hcl 5 Mg Tablet 5 Mg PO PRN PRN 03/09/14 Reported Levothyroxine Sodium 50 Mcg Tablet 50 Mcg PO DAILY 03/09/14 Reported Ranitidine Hcl 300 Mg Capsule 300 Mg PO BID 03/09/14 Reported Impression . 1. Acute respiratory failure secondary to combined metabolic and respiratory acidosis, pleural effusion 2. Encephalopathy, contributed by hypercapnia. Hypothyroidism may have contributed in that as well. resolved 3. Abnormal chest x-ray consistent with congestive heart failure with vascular markings been prominent and right lower lobe effusion along with cardiomegaly. less likely pneumonia. 4. Morbid obesity needs to be ruled out for sleep apnea as an outpatient. I would recommend doing a sleep study. 5. Hypothyroidism with an elevated TSH level needs to be adjusted with levothyroxine. Plan . 1. hemodialysis with UF 2. Follow ABGs.as needed 3. Avoid any sedatives. 4. CT reviewed. Moderate Right effusion, suspect transudate. will need thoracentesis. she agrees. hold coumadin. tap when INR < 1.6 5. DVT prophylaxis. 6. P.r.n. bronchodilators. 7. de-escalate antibiotic, vancomycin and Levaquin.soon DANYELLE RUSHING MD Apr 16, 2019 10:18
[2019-04-16 10:27] LABS: BASO % 1 % (0-3); EOS # 0.1 x10^3/uL (0.0-0.7); EOS % 3 % (0-3); HEMATOCRIT 31.7 % (36.0-47.0); LYMPH % 31 % (24-48); MEAN CORPUSCULAR HEMOGLOBIN 33 pg (25-35); MEAN CORPUSCULAR HGB CONC 32 g/dL (31-37); MEAN CORPUSCULAR VOLUME 105 fL (79-100); MONO # 0.4 x10^3/uL (0.0-1.1); MONO % 13 % (0-9); NEUT # 1.6 x10^3/uL (1.8-7.7); NEUT % 52 % (31-73); PLATELET COUNT 118 x10^3/uL (140-400); RED BLOOD COUNT 3.01 x10^6/uL (3.50-5.40); RED CELL DISTRIBUTION WIDTH 16.2 % (11.5-14.5); WHITE BLOOD COUNT 3.1 x10^3/uL (4.0-11.0)
[2019-04-16] MEDS: amLODIPine BESYLATE 5 MG TABLET PO SCH (11:42)
--- NOTE | 2019-04-16 11:48 | NUR ---
SS following up with discharge planning. PT/OT recommending home with assistance at this time. Nurse navigator met with pt and reported that pt is agreeable to home healthcare. SS will continue to follow for discharge planning.
--- NOTE | 2019-04-16 13:09 | PDOC ---
SUBJECTIVE ROS Stable OBJECTIVE Vital Signs Vital Signs Date Time Temp Pulse Resp B/P (MAP) Pulse Ox O2 Delivery O2 Flow Rate FiO2 04/16/19 12:49 67 117/64 04/16/19 11:35 100 Nasal Cannula 1.5 04/16/19 10:32 98.6 18 98.6 I & 0 Intake and Output 04/16/19 07:00 Intake Total 960 ml Output Total 0 ml Balance 960 ml Intake Oral 960 ml Output Urine Total 0 ml PHYSICAL EXAM Physical Exam GENERAL: NAD HEENT:Oropharynx pink and moist. NECK: Supple. LUNGS: Clear to auscultation. HEART: S1, S2. ABDOMEN: Obese, soft, a EXTREMITIES: No gross edema . LUE-AVF SKIN: No rash. NEUROLOGIC: Awake and answering questions appropriately. No Vamshi DIAGNOSIS/ASSESSMENT Assessment & Plan ESRD - On HD TTS No indication today Access- Had thrombosed left upper extremity HERO recently S/P Left upper extremity fistulogram, [employer] mechanical thrombolysis thrombosed Hero graft.,Angioplasty of outflow vein stenosis on 04/01 dialysis graft DM- per primary HTN- stable Anemia - Hgb > 10 No indication for FRED RLL infiltrate and pleural effusion - Pulm following - Acute respiratory failure secondary to combined metabolic and respiratory acidosis. Bicarb Increased to 40 in Dialysate yesterday Sinus disease on CT Morbid obesity COMMENT/RELEVANT DATA Meds Current Medications Medications (Trade) Dose Ordered Sig/[place] Start Time Stop Time Status Last Admin Dose Admin Acetaminophen (Tylenol) 500 mg 1X PRN PRN 04/15/19 07:45 04/16/19 07:44 DC Al Hydroxide/Mg Hydroxide (Mylanta Plus Xs) 30 ml PRN DAILY PRN 04/14/19 15:45 Albumin Human 200 ml @ 200 mls/hr 1X PRN PRN 04/15/19 07:45 04/15/19 13:44 DC Albuterol Sulfate (Ventolin Neb Soln) 2.5 mg RTBID 04/14/19 20:00 04/16/19 08:00 2.5 MG Amlodipine Besylate (Norvasc) 5 mg DAILY 04/14/19 17:30 04/16/19 11:42 5 MG Aspirin (Ecotrin) 81 mg DAILY 04/14/19 17:30 04/16/19 08:25 81 MG Cinacalcet (Sensipar) 30 mg DAILY 04/14/19 17:30 04/16/19 08:25 30 MG Clonidine HCl (Catapres) 0.1 mg PRN Q6HRS PRN 04/14/19 15:45 Dextrose (Dextrose 50%-Water Syringe) 12.5 gm PRN Q15MIN PRN 04/14/19 17:15 04/15/19 14:10 12.5 GM Diphenhydramine HCl (Benadryl) 25 mg 1X PRN PRN 04/15/19 07:45 04/16/19 07:44 DC Docusate Sodium (Colace) 100 mg PRN BID PRN 04/14/19 15:45 Enoxaparin Sodium (Lovenox 40mg Syringe) 40 mg Q24H 04/14/19 18:00 Cancel Famotidine (Pepcid) 20 mg Q48H 04/14/19 21:00 04/14/19 21:22 20 MG Fluticasone Propionate (Flonase) 2 spray DAILY 04/14/19 17:30 Gabapentin (Neurontin) 300 mg QHS 04/14/19 21:00 04/15/19 21:18 300 MG Heparin Sodium (Porcine) (Heparin Sodium) 5,000 unit Q8HRS 04/14/19 22:00 04/16/19 06:29 5,000 UNIT Info (PHARMACY MONITORING -- do not chart) 1 each PRN DAILY PRN 04/15/19 07:45 UNV Levofloxacin/ Dextrose 100 ml @ 100 mls/hr Q48H 04/16/19 14:00 Cancel Levofloxacin/ Dextrose (Levaquin Per Pharmacy) 1 each PRN DAILY PRN 04/14/19 13:15 04/14/19 15:43 DC Levothyroxine Sodium (Synthroid) 100 mcg DAILY06 04/15/19 09:00 04/16/19 06:24 100 MCG Lidocaine HCl (Xylocaine-Mpf 1% 2ml Vial) 2 ml 1X ONCE 04/15/19 07:45 04/15/19 07:52 DC Midodrine (Proamatine) 5 mg [id number] 04/14/19 18:00 04/16/19 12:49 5 MG Piperacillin Sod/ Tazobactam Sod (Zosyn Per Pharmacy) 1 each PRN DAILY PRN 04/15/19 10:30 Piperacillin Sod/ Tazobactam Sod 2.25 gm/Sodium Chloride 50 ml @ 100 mls/hr Q8H 04/15/19 11:00 04/16/19 11:42 100 MLS/HR Sevelamer Carbonate (Renvela) 800 mg TIDWMEALS 04/14/19 17:30 04/16/19 12:49 800 MG Sodium Bicarbonate (Sodium Bicarb Adult 8.4% Syr) 100 meq 1X ONCE 04/14/19 20:00 04/14/19 20:05 DC 04/14/19 20:09 100 MEQ Sodium Chloride 1,000 ml @ 400 mls/hr Q2H30M PRN 04/15/19 07:35 04/15/19 19:34 DC Vancomycin HCl (Vanco Per Pharmacy) 1 each PRN DAILY PRN 04/14/19 13:15 04/16/19 08:56 1 EACH Vancomycin HCl (Vancomycin Random Level) 1 each 1X ONCE 04/17/19 06:00 04/17/19 06:01 Vancomycin HCl 2 gm/Sodium Chloride 500 ml @ 250 mls/hr 1X ONCE 04/14/19 13:30 04/14/19 15:29 DC 04/14/19 18:29 250 MLS/HR Vitamin B Complex/ Vitamin C ([place]andra-Donovan) 1 tab DAILY 04/14/19 17:30 04/16/19 08:25 1 TAB Warfarin Sodium (Coumadin Per Pharmacy) 1 each PRN DAILY PRN 04/14/19 17:15 04/16/19 12:48 DC 04/16/19 09:08 1 EACH Warfarin Sodium (Coumadin) 7.5 mg DAILY16 04/14/19 17:11 04/15/19 10:15 DC 04/14/19 17:35 7.5 MG Lab Laboratory Tests Test 04/15/19 14:08 04/15/19 17:02 04/15/19 20:48 04/16/19 07:00 Glucose (Fingerstick) 60 mg/dL (70-99) 89 mg/dL (70-99) 94 mg/dL (70-99) White Blood Count 3.1 x10^3/uL (4.0-11.0) Red Blood Count 3.01 x10^6/uL (3.50-5.40) Hemoglobin 10.0 g/dL (12.0-15.5) Hematocrit 31.7 % (36.0-47.0) Mean Corpuscular Volume 105 fL (79-100) Mean Corpuscular Hemoglobin 33 pg (25-35) Mean Corpuscular Hemoglobin Concent 32 g/dL (31-37) Red Cell Distribution Width 16.2 % (11.5-14.5) Platelet Count 118 x10^3/uL (140-400) Neutrophils (%) (Auto) 52 % (31-73) Lymphocytes (%) (Auto) 31 % (24-48) Monocytes (%) (Auto) 13 % (0-9) Eosinophils (%) (Auto) 3 % (0-3) Basophils (%) (Auto) 1 % (0-3) Neutrophils # (Auto) 1.6 x10^3/uL (1.8-7.7) Lymphocytes # (Auto) 1.0 x10^3/uL (1.0-4.8) Monocytes # (Auto) 0.4 x10^3/uL (0.0-1.1) Eosinophils # (Auto) 0.1 x10^3/uL (0.0-0.7) Basophils # (Auto) 0.0 x10^3/uL (0.0-0.2) Prothrombin Time 32.8 SEC (11.7-14.0) Prothromb Time International Ratio 3.2 (0.8-1.1) Test 04/16/19 07:17 04/16/19 11:13 Glucose (Fingerstick) 110 mg/dL (70-99) 85 mg/dL (70-99) Results All relevant outside records, renal labs, imaging studies, telemetry/EKG's were reviewed. MARIO NOVOA MD Apr 16, 2019 13:09
--- NOTE | 2019-04-16 14:24 | RAD ---
Examination: CT CHEST WO CONTRAST History: Infiltrate and pleural effusion follow-up. Comparison/Correlation: 04/14/2019 acute abdomen series Findings: Axial images of the chest were obtained without contrast. Sagittal and coronal reformatted images of the chest were obtained. Left internal jugular dialysis catheter terminates at the superior cavoatrial junction. Superior vena cava is diminutive in diameter. Stent material is present along the left side of the superior mediastinum. Tracheal bronchial tree calcification is noted. Calcified granuloma involves the right lower lobe laterally. Moderate to large right pleural effusion is present. Right lower lobe atelectatic consolidation is present. Small left pleural effusion is present with minimal adjacent atelectasis. Mild anasarca noted. Edema of the right lateral breast and axillary region is noted as compared to the left side. Small hiatal hernia is present bilaterally atrophy is compatible. Renal osteodystrophy is noted bilateral glenohumeral joint degenerative demyelinating is notable. Impression: Moderate to large right pleural effusion with adjacent lower lobe atelectatic consolidation. Small left pleural effusion. Anasarca. Small hiatal hernia. PQRS Compliance Statement: One or more of the following individualized dose reduction techniques were utilized for this examination: 1. Automated exposure control 2. Adjustment of the mA and/or kV according to patient size 3. Use of iterative reconstruction technique Electronically signed by: Carlos Enrique Byers MD (04/16/2019 2:21 PM) [facility]
[2019-04-16] MEDS ORDERED: AMOXICILLIN/K CLAV 500/125MG TABLET. PO SCH (14:45)
--- NOTE | 2019-04-16 16:27 | PDOC ---
PROGRESS NOTES Subjective CT imaging confirms moderate size right pleural effusion for which she needs a thoracentesis but INR is over 3, she continues on IV antibiotics, she had dialysis this am and was alert when I saw her at lunch but had been sleeping. When awakened she was hungry for lunch, sugars have been ok. Objective Afebrile General: NAD Heart: RRR Lungs: clear anteriorly diminished right base Abd: obese, soft Ext: left arm dialysis shunt functioning with good thrill Vital Signs Vital Signs Date Time Temp Pulse Resp B/P (MAP) Pulse Ox O2 Delivery O2 Flow Rate FiO2 04/16/19 14:30 98.2 65 18 94/35 (54) 94 Nasal Cannula 3.0 98.2 I & O Intake and Output 04/16/19 07:00 Intake Total 960 ml Output Total 0 ml Balance 960 ml Intake Oral 960 ml Output Urine Total 0 ml Assessment and Plan acute hypercapnic respiratory failure - pulm following - Bipap encephalopathy, likely toxic and metabolic - continue to hold home dose of pain and anxiolytic meds suspected aspiration pneumonia - pulm and ID consults sphenoid sinusitis per imaging - ID consult 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
[2019-04-16] MEDS: GABAPENTIN 300 MG CAPSULE. PO SCH (21:24)
[2019-04-16] MEDS: LACTOBACILLUS RHAMNOSUS GG 1 CAPSULE. PO SCH (21:24)
[2019-04-16] MEDS: FAMOTIDINE 20 MG TABLET. PO SCH (21:25)
[2019-04-17 03:50] VITALS: BP 82/32
[2019-04-17] MEDS ORDERED: VANCOMYCIN RANDOM LEVEL. MC ONE ×2 (06:00)
[2019-04-17] MEDS: LEVOTHYROXINE 100 MCG TABLET PO SCH (06:04)
[2019-04-17] MEDS: PIPERACILLIN/TAZOBACTAM 2.25 GM in IV NORMAL SALINE 50ML 50 ML IV SCH ×3 (06:05→21:56)
[2019-04-17] MEDS: HEPARIN for SUB-Q USE 5,000 UNIT/ML VIAL. SQ SCH ×2 (06:11→14:16)
[2019-04-17 07:00] VITALS: BP 83/36
[2019-04-17] MEDS ORDERED: DIALYSIS PATIENT. MC PRN ×2 (07:15)
[2019-04-17] MEDS ORDERED: IV NORMAL SALINE 1000ML BAG 1,000 ML IV PRN ×2 (07:15)
[2019-04-17] MEDS ORDERED: ACETAMINOPHEN 500 MG TABLET PO PRN (07:15)
[2019-04-17] MEDS: ALBUTEROL SULFATE 2.5 MG/3 ML NEBU. NEB SCH ×2 (07:28→19:36)
[2019-04-17] MEDS: amLODIPine BESYLATE 5 MG TABLET PO SCH (07:45)
--- NOTE | 2019-04-17 07:48 | PDOC ---
Infectious Disease Note Subjective Subjective still c/o decrease coordination/shaking of left arm with picking up objects or using the phone (left-handed) Symtptom started day or so before admission Denies SPENCER/confusion/dizziness/F/C/N/V/D/SOA ROS ROS o/w neg Vital Sign Vital Signs Vital Signs Date Time Temp Pulse Resp B/P (MAP) Pulse Ox O2 Delivery O2 Flow Rate FiO2 04/17/19 07:45 71 82/36 04/17/19 07:28 100 Nasal Cannula 3.0 04/17/19 03:50 98.2 18 98.2 Physical Exam PHYSICAL EXAM GENERAL: Propped up in bed, alert, NAD HEENT: Mild conjunctival injection right eye and drainage- better Oropharynx pink and moist. Edentulous. NECK: Supple. LUNGS: Clear to auscultation. HEART: S1, S2. ABDOMEN: Obese, soft, and nontender with bowel sounds present. EXTREMITIES: No gross edema or cyanosis. LUE-AVF area bruised SKIN: Warm to touch. No signs of rash. NEUROLOGIC: Awake and answering questions appropriately. PIV Labs Lab Laboratory Tests Test 04/16/19 11:13 04/16/19 16:40 04/16/19 20:40 04/17/19 06:30 Glucose (Fingerstick) 85 mg/dL (70-99) 76 mg/dL (70-99) 97 mg/dL (70-99) Random Vancomycin Level 12.1 mcg/mL Micro Impression: Moderate to large right pleural effusion with adjacent lower lobe atelectatic consolidation. Small left pleural effusion. Anasarca. Small hiatal hernia. Microbiology 04/14/19 Blood Culture - Preliminary, Resulted NO GROWTH AFTER 2 DAYS Objective Assessment Leukopenia RLL infiltrate and pleural effusion Sinus disease on CT Constipation Bradycardia CKD/HD via AV fistula -s/p fistulogram/thrombolysis/angioplasty, 04/01. Warfarin therapy Morbid obesity Hypothyroidism h/o Proteus (R tetra) Plan Plan of Care vancomycin and Zosyn CBC in am Pleural effusion per Primary Off levaquin with bradycardia. will have atypical coverage until Monday 04/16 Says got a flu shot prior to admit Bowel regimen per primary cardiology rec noted L hand weakness per primary - d/w nursing Just notified of + blood cult with GPR in 1 of 3 bottles - will cont abx for now initially was going to change to augmentin until + BC CASSANDRA GARBER MD Apr 17, 2019 07:48
[2019-04-17] MEDS: FOLIC/VIT B COMP W-C (RENAL) TABLET. PO SCH (08:08)
[2019-04-17] MEDS: SEVELAMER CARBONATE 800 MG TABLET. PO SCH ×3 (08:08→17:38)
[2019-04-17] MEDS: LACTOBACILLUS RHAMNOSUS GG 1 CAPSULE. PO SCH ×2 (08:08→21:12)
[2019-04-17] MEDS: MIDODRINE 5 MG TABLET PO SCH ×3 (08:08→17:38)
[2019-04-17] MEDS: ASPIRIN ENTERIC COATED 81 MG TABLET.DR. PO SCH (08:08)
[2019-04-17] MEDS: CINACALCET HCL 30 MG TABLET PO SCH (08:08)
[2019-04-17] MEDS: FLUTICASONE 50MCG/NASAL SPRAY 16GM BOTTLE. NS SCH (08:08)
--- NOTE | 2019-04-17 08:22 | PDOC ---
PULMONARY PROGRESS NOTES Subjective fully awake, no soa Vitals Vital Signs Date Time Temp Pulse Resp B/P (MAP) Pulse Ox O2 Delivery O2 Flow Rate FiO2 04/17/19 08:08 71 82/36 04/17/19 07:28 100 Nasal Cannula 3.0 04/17/19 03:50 98.2 18 98.2 General: Alert, No acute distress Lungs: Other (decrease bases) Cardiovascular: S1 Abdomen: Soft, Other (obese) Extremities: Other (1+edema) Labs Laboratory Tests Test 04/15/19 08:29 04/15/19 14:08 04/15/19 17:02 04/15/19 20:48 O2 Saturation 98 % (92-99) Arterial Blood pH 7.22 (7.35-7.45) Arterial Blood pCO2 at Patient Temp 51 mmHg (35-46) Arterial Blood pO2 at Patient Temp 130 mmHg (65-108) Arterial Blood HCO3 20 mmol/L (21-28) Arterial Blood Base Excess -8 mmol/L (-3-3) Oxyhemoglobin 97.1 % Methemoglobin 0.4 % (0.0-1.9) Carbon Monoxide, Quantitative 0.9 % (0.0-1.9) FiO2 30 Glucose (Fingerstick) 60 mg/dL (70-99) 89 mg/dL (70-99) 94 mg/dL (70-99) Test 04/16/19 07:00 04/16/19 07:17 04/16/19 11:13 04/16/19 16:40 White Blood Count 3.1 x10^3/uL (4.0-11.0) Red Blood Count 3.01 x10^6/uL (3.50-5.40) Hemoglobin 10.0 g/dL (12.0-15.5) Hematocrit 31.7 % (36.0-47.0) Mean Corpuscular Volume 105 fL (79-100) Mean Corpuscular Hemoglobin 33 pg (25-35) Mean Corpuscular Hemoglobin Concent 32 g/dL (31-37) Red Cell Distribution Width 16.2 % (11.5-14.5) Platelet Count 118 x10^3/uL (140-400) Neutrophils (%) (Auto) 52 % (31-73) Lymphocytes (%) (Auto) 31 % (24-48) Monocytes (%) (Auto) 13 % (0-9) Eosinophils (%) (Auto) 3 % (0-3) Basophils (%) (Auto) 1 % (0-3) Neutrophils # (Auto) 1.6 x10^3/uL (1.8-7.7) Lymphocytes # (Auto) 1.0 x10^3/uL (1.0-4.8) Monocytes # (Auto) 0.4 x10^3/uL (0.0-1.1) Eosinophils # (Auto) 0.1 x10^3/uL (0.0-0.7) Basophils # (Auto) 0.0 x10^3/uL (0.0-0.2) Prothrombin Time 32.8 SEC (11.7-14.0) Prothromb Time International Ratio 3.2 (0.8-1.1) Glucose (Fingerstick) 110 mg/dL (70-99) 85 mg/dL (70-99) 76 mg/dL (70-99) Test 04/16/19 20:40 04/17/19 06:30 04/17/19 08:16 Glucose (Fingerstick) 97 mg/dL (70-99) 80 mg/dL (70-99) Prothrombin Time 28.0 SEC (11.7-14.0) Prothromb Time International Ratio 2.6 (0.8-1.1) Random Vancomycin Level 12.1 mcg/mL Laboratory Tests Test 04/16/19 11:13 04/16/19 16:40 04/16/19 20:40 04/17/19 06:30 Glucose (Fingerstick) 85 mg/dL (70-99) 76 mg/dL (70-99) 97 mg/dL (70-99) Prothrombin Time 28.0 SEC (11.7-14.0) Prothromb Time International Ratio 2.6 (0.8-1.1) Random Vancomycin Level 12.1 mcg/mL Test 04/17/19 08:16 Glucose (Fingerstick) 80 mg/dL (70-99) Medications Active Scripts Medications Dose Route/Sig Max Daily Dose Days Date Category Gabapentin 300 Mg Capsule 300 Mg PO QHS 30 01/25/19 Rx Coumadin (Warfarin Sodium) 7.5 Mg Tablet 1 Tab PO DAILY 03/13/18 Reported Hydrocodone-Apap 7.5-325 (Hydrocodone Bit/Acetaminophen) 1 Each Tablet 1 Tab PO BID PRN 05/06/17 Reported Fluticasone Propionate Nasal [place] (Fluticasone Propionate) 16 Gm [place].susp 2 [place] NS DAILY 05/06/17 Reported Renvela (Sevelamer Carbonate) 800 Mg Tablet 800 Mg PO TIDWMEALS 05/06/17 Reported Ibuprofen 800 Mg Tablet 800 Mg PO PRN Q6HRS PRN 05/06/17 Reported Vitamin D3 (Cholecalciferol (Vitamin D3)) 2,000 Unit Tab.chew 1,000 Unit PO 05/06/17 Reported Ventolin Hfa Inhaler (Albuterol Sulfate) 18 Gm Hfa.aer.ad 2 Puff INH BID 05/06/17 Reported Amlodipine Besylate 5 Mg Tablet 5 Mg PO DAILY 05/06/17 Reported Nephro-Donovan Tablet (Folic Acid/Vitamin B Comp W-C) 0.8 Mg Tablet 0.8 Mg PO DAILY 12/20/16 Reported Sensipar (Cinacalcet Hcl) 30 Mg Tablet 30 Mg PO DAILY 12/20/16 Reported Low Dose Aspirin Ec (Aspirin) 81 Mg Tablet.dr 1 Tab PO DAILY 03/09/14 Reported Midodrine Hcl 5 Mg Tablet 5 Mg PO PRN PRN 03/09/14 Reported Levothyroxine Sodium 50 Mcg Tablet 50 Mcg PO DAILY 03/09/14 Reported Ranitidine Hcl 300 Mg Capsule 300 Mg PO BID 03/09/14 Reported Impression . 1. Acute respiratory failure secondary to combined metabolic and respiratory acidosis, pleural effusion 2. Encephalopathy, contributed by hypercapnia. Hypothyroidism may have contributed in that as well. resolved 3. Abnormal chest x-ray consistent with congestive heart failure with vascular markings been prominent and right lower lobe effusion along with cardiomegaly. less likely pneumonia. 4. Morbid obesity needs to be ruled out for sleep apnea as an outpatient. I would recommend doing a sleep study. 5. Hypothyroidism with an elevated TSH level needs to be adjusted with levothyroxine. Plan . 1. hemodialysis with UF 2. Follow ABGs.as needed 3. Avoid any sedatives. 4. CT reviewed. Moderate Right effusion, suspect transudate. will need thoracentesis. she agrees. hold coumadin. tap when INR < 1.6 5. DVT prophylaxis. 6. P.r.n. bronchodilators. 7. de-escalate antibiotic, vancomycin and Levaquin.soon/ ID following DANYELLE RUSHING MD Apr 17, 2019 08:22
[2019-04-17] MEDS: VANCOMYCIN PER PHARMACY MC PRN (09:00)
--- NOTE | 2019-04-17 09:07 | NUR ---
Pharmacy Vancomycin Dosing Note S: Consulted to monitor and dose vancomycin started 04/14/19. O: ROSE CAMPOS is a 73 year old F with Sepsis, Pneumonia Other Antibiotics: ZOSYN 2.25 G Q8H (04/15 - ) LEVAQUIN 1X (04/14) LABS: Last BUN: 16 Last Creatinine: 4.9 Creatinine Clearance: DIALYSIS ([facility]) Last WBC: 3.1 Last Procalcitonin: 0.67 Tmax (past 24 hours): 98.6 Microbiology: BLOOD: GPR IN 1 OF 3 BOTTLES I/O: 1780/0 Drug Levels: Last Random level: 12.1 on 04/17/19 at 0630 Last dose given 04/14/19 at 1830 Vancomycin Dosing: Dosing Weight: Actual Target Trough: 15-20 A: Based on: random level P: 1. Dose Vancomycin 1000 mg IV One Time today then begin 500mg IV after each dialysis session starting w/ session 2. Follow up Random level to be ordered as needed 3. Pharmacy will continue to monitor, follow and adjust therapy as needed. Maria Luz Archuleta RPH, 04/17/19 [id number]
--- NOTE | 2019-04-17 10:22 | PDOC ---
Renal-Progress Notes Subjective Notes Notes LESS CONFUSED History of Present Illness Hx of present illness STABLE Vitals Vitals Vital Signs Date Time Temp Pulse Resp B/P (MAP) Pulse Ox O2 Delivery O2 Flow Rate FiO2 04/17/19 08:08 71 82/36 04/17/19 08:00 Nasal Cannula 3.0 04/17/19 07:28 100 04/17/19 07:00 98.4 18 98.4 Weight Weight [ ] I.O. Intake and Output Intake and Output 04/17/19 07:00 Intake Total 1780 ml Output Total 0 ml Balance 1780 ml Intake Oral 1780 ml Output Urine Total 0 ml Labs Labs Laboratory Tests Test 04/16/19 11:13 04/16/19 16:40 04/16/19 20:40 04/17/19 06:30 Glucose (Fingerstick) 85 mg/dL (70-99) 76 mg/dL (70-99) 97 mg/dL (70-99) Prothrombin Time 28.0 SEC (11.7-14.0) Prothromb Time International Ratio 2.6 (0.8-1.1) Random Vancomycin Level 12.1 mcg/mL Test 04/17/19 08:16 Glucose (Fingerstick) 80 mg/dL (70-99) Micro Micro Microbiology 04/14/19 Blood Culture - Preliminary, Resulted NO GROWTH AFTER 2 DAYS Review of Systems Constitutional: yes: other (CONFUSED) Physical Exam General Appearance: no apparent distress Skin: warm Respiratory: decreased breath sounds Heart: S1S2 Abdomen: soft, bowel sounds present Extremities: pulses present Neurology: alert Musculoskeletal: Osteoarthritis Assessment Assessment IMP ESRD ANEMIA MET ENCEPHALOPATHY OBESITY HYPOTENSION PLAN STOP NORVASC CONT MIDODRINE HD TODAY UF TO DW TOLERATED START REECE MARTINEZ MD Apr 17, 2019 10:22
--- NOTE | 2019-04-17 12:28 | PDOC ---
PROGRESS NOTES Subjective Pt seen in dialysis, comfortable, denies pain, she has a tremor of right hand that is affecting drinking and eating, Norvasc stopped by renal as BP is low this am, Sindy ordered Objective Afebrile General: drowsy but A&O Heart: RRR Lungs: diminished right base Abd: obese, soft Ext: left arm shunt functioning, no LE edema Vital Signs Vital Signs Date Time Temp Pulse Resp B/P (MAP) Pulse Ox O2 Delivery O2 Flow Rate FiO2 04/17/19 08:08 71 82/36 04/17/19 08:00 Nasal Cannula 3.0 04/17/19 07:28 100 04/17/19 07:00 98.4 18 98.4 I & O Intake and Output 04/17/19 06:59 Intake Total 1780 ml Output Total 0 ml Balance 1780 ml Intake Oral 1780 ml Output Urine Total 0 ml Assessment and Plan acute hypercapnic respiratory failure - pulm following - Bipap encephalopathy, likely toxic and metabolic - continue to hold home dose of pain and anxiolytic meds suspected aspiration pneumonia - pulm and ID consults sphenoid sinusitis per imaging - ID consult 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
[2019-04-17 15:00] VITALS: BP 98/50
[2019-04-17] MEDS ORDERED: VANCOMYCIN 1 GM in IV NORMAL SALINE 250ML 250 ML IV ONE (15:00)
[2019-04-17 19:15] VITALS: BP 121/49
[2019-04-17] MEDS: GABAPENTIN 300 MG CAPSULE. PO SCH (21:12)
[2019-04-17] MEDS: DARBEPOETIN ALFA 60 MCG/0.3 ML DISP.SYRIN. SQ SCH (21:13)
[2019-04-17 23:52] VITALS: BP 102/42
[2019-04-18 03:00] VITALS: BP 99/44
[2019-04-18 05:46] LABS: BASO % 1 % (0-3); EOS # 0.1 x10^3/uL (0.0-0.7); EOS % 3 % (0-3); HEMATOCRIT 32.7 % (36.0-47.0); HEMOGLOBIN 10.3 g/dL (12.0-15.5); LYMPH # 1.4 x10^3/uL (1.0-4.8); LYMPH % 40 % (24-48); MEAN CORPUSCULAR HEMOGLOBIN 33 pg (25-35); MEAN CORPUSCULAR HGB CONC 32 g/dL (31-37); MEAN CORPUSCULAR VOLUME 106 fL (79-100); MONO # 0.4 x10^3/uL (0.0-1.1); MONO % 12 % (0-9); NEUT # 1.6 x10^3/uL (1.8-7.7); NEUT % 45 % (31-73); PLATELET COUNT 122 x10^3/uL (140-400); RED BLOOD COUNT 3.09 x10^6/uL (3.50-5.40); RED CELL DISTRIBUTION WIDTH 16.1 % (11.5-14.5); WHITE BLOOD COUNT 3.6 x10^3/uL (4.0-11.0)
[2019-04-18] MEDS: LEVOTHYROXINE 100 MCG TABLET PO SCH (05:50)
[2019-04-18] MEDS: PIPERACILLIN/TAZOBACTAM 2.25 GM in IV NORMAL SALINE 50ML 50 ML IV SCH ×3 (05:50→22:03)
[2019-04-18 06:02] LABS: PROTHROMBIN TIME PATIENT 22.9 SEC (11.7-14.0)
[2019-04-18 07:00] VITALS: BP 103/61
[2019-04-18] MEDS: ALBUTEROL SULFATE 2.5 MG/3 ML NEBU. NEB SCH ×2 (07:18→19:19)
[2019-04-18] MEDS: LACTOBACILLUS RHAMNOSUS GG 1 CAPSULE. PO SCH ×2 (09:09→20:44)
[2019-04-18] MEDS: ASPIRIN ENTERIC COATED 81 MG TABLET.DR. PO SCH (09:09)
[2019-04-18] MEDS: SEVELAMER CARBONATE 800 MG TABLET. PO SCH ×3 (09:09→18:32)
[2019-04-18] MEDS: FOLIC/VIT B COMP W-C (RENAL) TABLET. PO SCH (09:09)
[2019-04-18] MEDS: CINACALCET HCL 30 MG TABLET PO SCH (09:09)
[2019-04-18] MEDS: MIDODRINE 5 MG TABLET PO SCH ×3 (09:09→18:32)
--- NOTE | 2019-04-18 09:15 | PDOC ---
Infectious Disease Note Subjective Subjective Comfortable Hungry this morning Denies SOA/N/V/D/F/C ROS ROS per HPI Vital Sign Vital Signs Vital Signs Date Time Temp Pulse Resp B/P (MAP) Pulse Ox O2 Delivery O2 Flow Rate FiO2 04/18/19 07:19 96 Room Air 04/18/19 07:00 98.2 57 18 103/61 (75) 2.0 98.2 Physical Exam PHYSICAL EXAM GENERAL: Propped up in bed, alert, eating HEENT: Mild conjunctival injection right eye and drainage- better Oropharynx pink and moist. Edentulous. NECK: Supple. LUNGS: Clear to auscultation. HEART: S1, S2. ABDOMEN: Obese, soft, and nontender with bowel sounds present. EXTREMITIES: No gross edema or cyanosis. LUE-AVF area bruised SKIN: Warm to touch. No signs of rash. NEUROLOGIC: Alert, and answering questions appropriately. Labs Lab Laboratory Tests Test 04/17/19 17:05 04/17/19 20:42 04/18/19 04:55 04/18/19 07:30 Glucose (Fingerstick) 104 mg/dL (70-99) 129 mg/dL (70-99) 77 mg/dL (70-99) White Blood Count 3.6 x10^3/uL (4.0-11.0) Red Blood Count 3.09 x10^6/uL (3.50-5.40) Hemoglobin 10.3 g/dL (12.0-15.5) Hematocrit 32.7 % (36.0-47.0) Mean Corpuscular Volume 106 fL (79-100) Mean Corpuscular Hemoglobin 33 pg (25-35) Mean Corpuscular Hemoglobin Concent 32 g/dL (31-37) Red Cell Distribution Width 16.1 % (11.5-14.5) Platelet Count 122 x10^3/uL (140-400) Neutrophils (%) (Auto) 45 % (31-73) Lymphocytes (%) (Auto) 40 % (24-48) Monocytes (%) (Auto) 12 % (0-9) Eosinophils (%) (Auto) 3 % (0-3) Basophils (%) (Auto) 1 % (0-3) Neutrophils # (Auto) 1.6 x10^3/uL (1.8-7.7) Lymphocytes # (Auto) 1.4 x10^3/uL (1.0-4.8) Monocytes # (Auto) 0.4 x10^3/uL (0.0-1.1) Eosinophils # (Auto) 0.1 x10^3/uL (0.0-0.7) Basophils # (Auto) 0.0 x10^3/uL (0.0-0.2) Prothrombin Time 22.9 SEC (11.7-14.0) Prothromb Time International Ratio 2.1 (0.8-1.1) Micro 10/. BLOOD CULTURE Final GRAM POSITIVE RODS IN 1 OF 3 BOTTLES (2 SETS COLLECTED). CALLED TO [facility] ON 2N 04/16/19 AT 1503 BY Eduardo THOMPSON. CULTURE HAS BEEN SENT TO [facility] FOR FURTHER IDENTIFICATION. Objective Assessment Leukopenia now pancytopenia RLL infiltrate and pleural effusion Sinus disease on CT Constipation - better, BM x 2 Bradycardia Tremor left hand CKD/HD via AV fistula -s/p fistulogram/thrombolysis/angioplasty, 04/01. Warfarin therapy Morbid obesity Hypothyroidism h/o Proteus (R tetra) Plan Plan of Care vancomycin and Zosyn try to taper soon Off levaquin with bradycardia. Thoracentesis planned for Apr 19 Says got a flu shot prior to admit Awaiting GPR ID L Hand weakness per primary D/w Dr. Moore Attending Co-Sign Attending Co-Sign The patient was seen and interviewed as well as examined at the bedside. The chart was reviewed. The case was discussed. Agree with the plan of care. KRISTI TEJADA APRN Apr 18, 2019 09:15 CASSANDRA GARBER MD Apr 18, 2019 13:28
--- NOTE | 2019-04-18 09:33 | PDOC ---
Renal-Progress Notes Subjective Notes Notes NO NEW COMPLAINTS History of Present Illness Hx of present illness NO CHANGE Vitals Vitals Vital Signs Date Time Temp Pulse Resp B/P (MAP) Pulse Ox O2 Delivery O2 Flow Rate FiO2 04/18/19 09:09 103/61 04/18/19 07:19 96 Room Air 04/18/19 07:00 98.2 57 18 2.0 98.2 Weight Weight [ ] I.O. Intake and Output Intake and Output 04/18/19 07:00 Intake Total 650 ml Output Total 0 ml Balance 650 ml Intake Oral 650 ml Output Urine Total 0 ml Labs Labs Laboratory Tests Test 04/17/19 17:05 04/17/19 20:42 04/18/19 04:55 04/18/19 07:30 Glucose (Fingerstick) 104 mg/dL (70-99) 129 mg/dL (70-99) 77 mg/dL (70-99) White Blood Count 3.6 x10^3/uL (4.0-11.0) Red Blood Count 3.09 x10^6/uL (3.50-5.40) Hemoglobin 10.3 g/dL (12.0-15.5) Hematocrit 32.7 % (36.0-47.0) Mean Corpuscular Volume 106 fL (79-100) Mean Corpuscular Hemoglobin 33 pg (25-35) Mean Corpuscular Hemoglobin Concent 32 g/dL (31-37) Red Cell Distribution Width 16.1 % (11.5-14.5) Platelet Count 122 x10^3/uL (140-400) Neutrophils (%) (Auto) 45 % (31-73) Lymphocytes (%) (Auto) 40 % (24-48) Monocytes (%) (Auto) 12 % (0-9) Eosinophils (%) (Auto) 3 % (0-3) Basophils (%) (Auto) 1 % (0-3) Neutrophils # (Auto) 1.6 x10^3/uL (1.8-7.7) Lymphocytes # (Auto) 1.4 x10^3/uL (1.0-4.8) Monocytes # (Auto) 0.4 x10^3/uL (0.0-1.1) Eosinophils # (Auto) 0.1 x10^3/uL (0.0-0.7) Basophils # (Auto) 0.0 x10^3/uL (0.0-0.2) Prothrombin Time 22.9 SEC (11.7-14.0) Prothromb Time International Ratio 2.1 (0.8-1.1) Micro Micro Microbiology 04/14/19 Blood Culture - Preliminary, Resulted NO GROWTH AFTER 3 DAYS Review of Systems Constitutional: yes: other (CONFUSED) Physical Exam General Appearance: no apparent distress Skin: warm Respiratory: decreased breath sounds Heart: S1S2 Abdomen: soft, bowel sounds present Extremities: pulses present Neurology: alert Musculoskeletal: Osteoarthritis Assessment Assessment IMP ESRD ANEMIA MET ENCEPHALOPATHY OBESITY HYPOTENSION-IMPROVED RIGHT SIDE PLEURAL EFFUSION PLAN OFF NORVASC CONT MIDODRINE HD TTS CONT ARANESP THORACENTESIS PENDING REECE ANN MD Apr 18, 2019 09:33
[2019-04-18] MEDS ORDERED: PHYTONADIONE 10 MG/ML AMPUL. SQ ONE (10:00)
--- NOTE | 2019-04-18 10:00 | PDOC ---
PULMONARY PROGRESS NOTES Subjective Awake and alert, denies SOB or increase cough Vitals Vital Signs Date Time Temp Pulse Resp B/P (MAP) Pulse Ox O2 Delivery O2 Flow Rate FiO2 04/18/19 09:09 103/61 04/18/19 07:19 96 Room Air 04/18/19 07:00 98.2 57 18 2.0 98.2 ROS: No Nausea, No Chest Pain, No Abdominal Pain, No Increase Cough General: Alert, No acute distress Lungs: Other (decrease bases) Cardiovascular: S1 Abdomen: Soft, Other (obese) Extremities: Other (1+edema) Labs Laboratory Tests Test 04/16/19 11:13 04/16/19 16:40 04/16/19 20:40 04/17/19 06:30 Glucose (Fingerstick) 85 mg/dL (70-99) 76 mg/dL (70-99) 97 mg/dL (70-99) Prothrombin Time 28.0 SEC (11.7-14.0) Prothromb Time International Ratio 2.6 (0.8-1.1) Random Vancomycin Level 12.1 mcg/mL Test 04/17/19 08:16 04/17/19 17:05 04/17/19 20:42 04/18/19 04:55 Glucose (Fingerstick) 80 mg/dL (70-99) 104 mg/dL (70-99) 129 mg/dL (70-99) White Blood Count 3.6 x10^3/uL (4.0-11.0) Red Blood Count 3.09 x10^6/uL (3.50-5.40) Hemoglobin 10.3 g/dL (12.0-15.5) Hematocrit 32.7 % (36.0-47.0) Mean Corpuscular Volume 106 fL (79-100) Mean Corpuscular Hemoglobin 33 pg (25-35) Mean Corpuscular Hemoglobin Concent 32 g/dL (31-37) Red Cell Distribution Width 16.1 % (11.5-14.5) Platelet Count 122 x10^3/uL (140-400) Neutrophils (%) (Auto) 45 % (31-73) Lymphocytes (%) (Auto) 40 % (24-48) Monocytes (%) (Auto) 12 % (0-9) Eosinophils (%) (Auto) 3 % (0-3) Basophils (%) (Auto) 1 % (0-3) Neutrophils # (Auto) 1.6 x10^3/uL (1.8-7.7) Lymphocytes # (Auto) 1.4 x10^3/uL (1.0-4.8) Monocytes # (Auto) 0.4 x10^3/uL (0.0-1.1) Eosinophils # (Auto) 0.1 x10^3/uL (0.0-0.7) Basophils # (Auto) 0.0 x10^3/uL (0.0-0.2) Prothrombin Time 22.9 SEC (11.7-14.0) Prothromb Time International Ratio 2.1 (0.8-1.1) Test 04/18/19 07:30 Glucose (Fingerstick) 77 mg/dL (70-99) Laboratory Tests Test 04/17/19 17:05 04/17/19 20:42 04/18/19 04:55 04/18/19 07:30 Glucose (Fingerstick) 104 mg/dL (70-99) 129 mg/dL (70-99) 77 mg/dL (70-99) White Blood Count 3.6 x10^3/uL (4.0-11.0) Red Blood Count 3.09 x10^6/uL (3.50-5.40) Hemoglobin 10.3 g/dL (12.0-15.5) Hematocrit 32.7 % (36.0-47.0) Mean Corpuscular Volume 106 fL (79-100) Mean Corpuscular Hemoglobin 33 pg (25-35) Mean Corpuscular Hemoglobin Concent 32 g/dL (31-37) Red Cell Distribution Width 16.1 % (11.5-14.5) Platelet Count 122 x10^3/uL (140-400) Neutrophils (%) (Auto) 45 % (31-73) Lymphocytes (%) (Auto) 40 % (24-48) Monocytes (%) (Auto) 12 % (0-9) Eosinophils (%) (Auto) 3 % (0-3) Basophils (%) (Auto) 1 % (0-3) Neutrophils # (Auto) 1.6 x10^3/uL (1.8-7.7) Lymphocytes # (Auto) 1.4 x10^3/uL (1.0-4.8) Monocytes # (Auto) 0.4 x10^3/uL (0.0-1.1) Eosinophils # (Auto) 0.1 x10^3/uL (0.0-0.7) Basophils # (Auto) 0.0 x10^3/uL (0.0-0.2) Prothrombin Time 22.9 SEC (11.7-14.0) Prothromb Time International Ratio 2.1 (0.8-1.1) Medications Active Scripts Medications Dose Route/Sig Max Daily Dose Days Date Category Gabapentin 300 Mg Capsule 300 Mg PO QHS 30 01/25/19 Rx Coumadin (Warfarin Sodium) 7.5 Mg Tablet 1 Tab PO DAILY 03/13/18 Reported Hydrocodone-Apap 7.5-325 (Hydrocodone Bit/Acetaminophen) 1 Each Tablet 1 Tab PO BID PRN 05/06/17 Reported Fluticasone Propionate Nasal [place] (Fluticasone Propionate) 16 Gm [place].susp 2 [place] NS DAILY 05/06/17 Reported Renvela (Sevelamer Carbonate) 800 Mg Tablet 800 Mg PO TIDWMEALS 05/06/17 Reported Ibuprofen 800 Mg Tablet 800 Mg PO PRN Q6HRS PRN 05/06/17 Reported Vitamin D3 (Cholecalciferol (Vitamin D3)) 2,000 Unit Tab.chew 1,000 Unit PO 05/06/17 Reported Ventolin Hfa Inhaler (Albuterol Sulfate) 18 Gm Hfa.aer.ad 2 Puff INH BID 05/06/17 Reported Amlodipine Besylate 5 Mg Tablet 5 Mg PO DAILY 05/06/17 Reported Nephro-Donovan Tablet (Folic Acid/Vitamin B Comp W-C) 0.8 Mg Tablet 0.8 Mg PO DAILY 12/20/16 Reported Sensipar (Cinacalcet Hcl) 30 Mg Tablet 30 Mg PO DAILY 12/20/16 Reported Low Dose Aspirin Ec (Aspirin) 81 Mg Tablet.dr 1 Tab PO DAILY 03/09/14 Reported Midodrine Hcl 5 Mg Tablet 5 Mg PO PRN PRN 03/09/14 Reported Levothyroxine Sodium 50 Mcg Tablet 50 Mcg PO DAILY 03/09/14 Reported Ranitidine Hcl 300 Mg Capsule 300 Mg PO BID 03/09/14 Reported Impression . 1. Acute respiratory failure secondary to combined metabolic and respiratory acidosis, pleural effusion----improved 2. Encephalopathy, contributed by hypercapnia. Hypothyroidism may have contributed in that as well ---resolved 3. Abnormal chest x-ray consistent with congestive heart failure with vascular markings been prominent and right lower lobe effusion along with cardiomegaly. 4. Morbid obesity needs to be ruled out for sleep apnea as an outpatient. I would recommend doing a sleep study. 5. Hypothyroidism with an elevated TSH level Plan . 1. Cont. hemodialysis with UF errenal recs. 2. ABGs.as needed 3. Avoid any sedatives/benzos 4. CT reviewed. Moderate Right effusion, suspect transudate. will need thoracentesis. she agrees. hold coumadin. 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 5. DVT prophylaxis. 6. P.r.n. bronchodilators. 7. cont., abx per ID; currently michael/DANYELLE Montalvo MD Apr 18, 2019 10:00
[2019-04-18 11:00] VITALS: BP 144/72
[2019-04-18] MEDS: VANCOMYCIN PER PHARMACY MC PRN (11:04)
[2019-04-18] MEDS: FLUTICASONE 50MCG/NASAL SPRAY 16GM BOTTLE. NS SCH (11:49)
[2019-04-18] MEDS ORDERED: PHYTONADIONE (VIT K1) IV 10 MG in IV DEXTROSE 5% 50 ML IV ONE (13:45)
--- NOTE | 2019-04-18 13:45 | PDOC ---
PROGRESS NOTES Subjective No new complaints although she did have bloody urine yesterday and is now off Heparin. Suprisingly her INR went up today despite being off warfarin. 1/ cultures positive but still waiting on ID of bug, still planning thoracentesis tomorrow if INR under 1.6 Objective Afebrile General: alert, eating Heart: RRR Lungs: diminished right base Abd: obese, soft, non tender Ext: no significant bruising, left arm shunt still patent Vital Signs Vital Signs Date Time Temp Pulse Resp B/P (MAP) Pulse Ox O2 Delivery O2 Flow Rate FiO2 04/18/19 11:49 119/47 04/18/19 11:00 98.6 89 18 95 Nasal Cannula 2.0 98.6 I & O Intake and Output 04/18/19 06:59 Intake Total 650 ml Output Total 0 ml Balance 650 ml Intake Oral 650 ml Output Urine Total 0 ml Assessment and Plan acute hypercapnic respiratory failure - pulm following - Bipap encephalopathy, likely toxic and metabolic - continue to hold home dose of pain and anxiolytic meds suspected aspiration pneumonia - pulm and ID consults sphenoid sinusitis per imaging - ID consult 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
[2019-04-18 15:00] VITALS: BP 124/64
[2019-04-18 19:15] VITALS: BP 129/48
[2019-04-18] MEDS: FAMOTIDINE 20 MG TABLET. PO SCH (20:44)
[2019-04-18] MEDS: GABAPENTIN 300 MG CAPSULE. PO SCH (20:45)
[2019-04-18 23:35] VITALS: BP 138/57
[2019-04-19] VITALS (7 sets, daily range): BP systolic 91–160; BP diastolic 38–52
[2019-04-19] MEDS: PIPERACILLIN/TAZOBACTAM 2.25 GM in IV NORMAL SALINE 50ML 50 ML IV SCH ×3 (05:16→21:45)
[2019-04-19 05:54] LABS: PROTHROMBIN TIME PATIENT 18.4 SEC (11.7-14.0)
[2019-04-19] MEDS: LEVOTHYROXINE 100 MCG TABLET PO SCH (06:01)
[2019-04-19] MEDS: MIDODRINE 5 MG TABLET PO SCH ×3 (06:02→17:42)
--- NOTE | 2019-04-19 07:40 | PDOC ---
Infectious Disease Note Subjective Subjective Comfortable Had a good night Less hand weakness Denies SOA/N/V/D/F/C ROS ROS o/w neg Vital Sign Vital Signs Vital Signs Date Time Temp Pulse Resp B/P (MAP) Pulse Ox O2 Delivery O2 Flow Rate FiO2 04/19/19 06:02 70 133/44 04/19/19 02:40 97.5 20 97 Nasal Cannula 2.0 97.5 Physical Exam PHYSICAL EXAM GENERAL: Propped up in bed, alert HEENT: nml conjunctival Oropharynx pink and moist. Edentulous. NECK: Supple. LUNGS: Clear to auscultation. HEART: S1, S2. ABDOMEN: Obese, soft, and nontender with bowel sounds present. EXTREMITIES: No gross edema or cyanosis. LUE-AVF area bruised SKIN: Warm to touch. No signs of rash. NEUROLOGIC: Alert, and answering questions appropriately. Labs Lab Laboratory Tests Test 04/18/19 11:32 04/18/19 16:56 04/18/19 20:49 04/19/19 05:00 Glucose (Fingerstick) 110 mg/dL (70-99) 102 mg/dL (70-99) 137 mg/dL (70-99) Prothrombin Time 18.4 SEC (11.7-14.0) Prothromb Time International Ratio 1.6 (0.8-1.1) Test 04/19/19 07:06 Glucose (Fingerstick) 82 mg/dL (70-99) Micro Impression: Moderate to large right pleural effusion with adjacent lower lobe atelectatic consolidation. Small left pleural effusion. Anasarca. Small hiatal hernia. Microbiology 04/14/19 Blood Culture - Preliminary, Resulted NO GROWTH AFTER 2 DAYS Objective Assessment Leukopenia better yesterday RLL infiltrate and pleural effusion Bactermia / GPR 04/14 - like contamination Sinus disease on CT Constipation Bradycardia CKD/HD via AV fistula -s/p fistulogram/thrombolysis/angioplasty, 04/01. Warfarin therapy Morbid obesity Hypothyroidism h/o Proteus (R tetra) Plan Plan of Care Cont vancomycin and Zosyn try to taper soon Off levaquin with bradycardia. Thoracentesis planned for Apr 19 Says got a flu shot prior to admit Awaiting GPR ID CASSANDRA GARBER MD Apr 19, 2019 07:40
[2019-04-19] MEDS: FOLIC/VIT B COMP W-C (RENAL) TABLET. PO SCH (08:28)
[2019-04-19] MEDS: CINACALCET HCL 30 MG TABLET PO SCH (08:28)
[2019-04-19] MEDS: SEVELAMER CARBONATE 800 MG TABLET. PO SCH ×3 (08:28→17:41)
[2019-04-19] MEDS: LACTOBACILLUS RHAMNOSUS GG 1 CAPSULE. PO SCH ×2 (08:28→21:45)
[2019-04-19] MEDS: FLUTICASONE 50MCG/NASAL SPRAY 16GM BOTTLE. NS SCH (09:00)
--- NOTE | 2019-04-19 10:43 | PDOC ---
Renal-Progress Notes Subjective Notes Notes NOTHING NEW History of Present Illness Hx of present illness STABLE Vitals Vitals Vital Signs Date Time Temp Pulse Resp B/P (MAP) Pulse Ox O2 Delivery O2 Flow Rate FiO2 04/19/19 09:22 58 160/40 (80) 99 04/19/19 08:05 Nasal Cannula 1.0 04/19/19 07:00 98.4 20 98.4 Weight Weight [ ] I.O. Intake and Output Intake and Output 04/19/19 07:00 Intake Total 320 ml Output Total 50 ml Balance 270 ml Intake Oral 220 ml IV Total 100 ml Output Urine Total 50 ml Labs Labs Laboratory Tests Test 04/18/19 11:32 04/18/19 16:56 04/18/19 20:49 04/19/19 05:00 Glucose (Fingerstick) 110 mg/dL (70-99) 102 mg/dL (70-99) 137 mg/dL (70-99) Prothrombin Time 18.4 SEC (11.7-14.0) Prothromb Time International Ratio 1.6 (0.8-1.1) Test 04/19/19 07:06 Glucose (Fingerstick) 82 mg/dL (70-99) Micro Micro Microbiology 04/14/19 Blood Culture - Preliminary, Resulted NO GROWTH AFTER 4 DAYS Review of Systems Constitutional: yes: other (CONFUSED) Physical Exam General Appearance: no apparent distress Skin: warm Respiratory: decreased breath sounds Heart: S1S2 Abdomen: soft, bowel sounds present Extremities: pulses present Neurology: alert Musculoskeletal: Osteoarthritis Assessment Assessment IMP ESRD ANEMIA MET ENCEPHALOPATHY OBESITY HYPOTENSION-RESOLVED HTN NOW RIGHT SIDE PLEURAL EFFUSION PLAN RESUME LOWER DOSE NORVASC IF STILL HYPERTENSIVE THROUGH THE DAY CONT MIDODRINE HD TOMORROW CONT ARANESP THORACENTESIS PENDING REECE ANN MD Apr 19, 2019 10:43
--- NOTE | 2019-04-19 11:29 | PDOC ---
PULMONARY PROGRESS NOTES Subjective Awake and alert, denies SOB or increase cough s/p right thoracentesis , 950 cc removed Vitals Vital Signs Date Time Temp Pulse Resp B/P (MAP) Pulse Ox O2 Delivery O2 Flow Rate FiO2 04/19/19 09:22 58 160/40 (80) 99 04/19/19 08:05 Nasal Cannula 1.0 04/19/19 07:00 98.4 20 98.4 ROS: No Nausea, No Chest Pain, No Abdominal Pain, No Increase Cough General: Alert, No acute distress Lungs: Other (decrease bases) Cardiovascular: S1 Abdomen: Soft, Other (obese) Extremities: Other (1+edema) Labs Laboratory Tests Test 04/17/19 17:05 04/17/19 20:42 04/18/19 04:55 04/18/19 07:30 Glucose (Fingerstick) 104 mg/dL (70-99) 129 mg/dL (70-99) 77 mg/dL (70-99) White Blood Count 3.6 x10^3/uL (4.0-11.0) Red Blood Count 3.09 x10^6/uL (3.50-5.40) Hemoglobin 10.3 g/dL (12.0-15.5) Hematocrit 32.7 % (36.0-47.0) Mean Corpuscular Volume 106 fL (79-100) Mean Corpuscular Hemoglobin 33 pg (25-35) Mean Corpuscular Hemoglobin Concent 32 g/dL (31-37) Red Cell Distribution Width 16.1 % (11.5-14.5) Platelet Count 122 x10^3/uL (140-400) Neutrophils (%) (Auto) 45 % (31-73) Lymphocytes (%) (Auto) 40 % (24-48) Monocytes (%) (Auto) 12 % (0-9) Eosinophils (%) (Auto) 3 % (0-3) Basophils (%) (Auto) 1 % (0-3) Neutrophils # (Auto) 1.6 x10^3/uL (1.8-7.7) Lymphocytes # (Auto) 1.4 x10^3/uL (1.0-4.8) Monocytes # (Auto) 0.4 x10^3/uL (0.0-1.1) Eosinophils # (Auto) 0.1 x10^3/uL (0.0-0.7) Basophils # (Auto) 0.0 x10^3/uL (0.0-0.2) Prothrombin Time 22.9 SEC (11.7-14.0) Prothromb Time International Ratio 2.1 (0.8-1.1) Test 04/18/19 11:32 04/18/19 16:56 04/18/19 20:49 04/19/19 05:00 Glucose (Fingerstick) 110 mg/dL (70-99) 102 mg/dL (70-99) 137 mg/dL (70-99) Prothrombin Time 18.4 SEC (11.7-14.0) Prothromb Time International Ratio 1.6 (0.8-1.1) Test 04/19/19 07:06 Glucose (Fingerstick) 82 mg/dL (70-99) Laboratory Tests Test 04/18/19 11:32 04/18/19 16:56 04/18/19 20:49 04/19/19 05:00 Glucose (Fingerstick) 110 mg/dL (70-99) 102 mg/dL (70-99) 137 mg/dL (70-99) Prothrombin Time 18.4 SEC (11.7-14.0) Prothromb Time International Ratio 1.6 (0.8-1.1) Test 04/19/19 07:06 Glucose (Fingerstick) 82 mg/dL (70-99) Medications Active Scripts Medications Dose Route/Sig Max Daily Dose Days Date Category Gabapentin 300 Mg Capsule 300 Mg PO QHS 30 01/25/19 Rx Coumadin (Warfarin Sodium) 7.5 Mg Tablet 1 Tab PO DAILY 03/13/18 Reported Hydrocodone-Apap 7.5-325 (Hydrocodone Bit/Acetaminophen) 1 Each Tablet 1 Tab PO BID PRN 05/06/17 Reported Fluticasone Propionate Nasal [place] (Fluticasone Propionate) 16 Gm [place].susp 2 [place] NS DAILY 05/06/17 Reported Renvela (Sevelamer Carbonate) 800 Mg Tablet 800 Mg PO TIDWMEALS 05/06/17 Reported Ibuprofen 800 Mg Tablet 800 Mg PO PRN Q6HRS PRN 05/06/17 Reported Vitamin D3 (Cholecalciferol (Vitamin D3)) 2,000 Unit Tab.chew 1,000 Unit PO 05/06/17 Reported Ventolin Hfa Inhaler (Albuterol Sulfate) 18 Gm Hfa.aer.ad 2 Puff INH BID 05/06/17 Reported Amlodipine Besylate 5 Mg Tablet 5 Mg PO DAILY 05/06/17 Reported Nephro-Donovan Tablet (Folic Acid/Vitamin B Comp W-C) 0.8 Mg Tablet 0.8 Mg PO DAILY 12/20/16 Reported Sensipar (Cinacalcet Hcl) 30 Mg Tablet 30 Mg PO DAILY 12/20/16 Reported Low Dose Aspirin Ec (Aspirin) 81 Mg Tablet.dr 1 Tab PO DAILY 03/09/14 Reported Midodrine Hcl 5 Mg Tablet 5 Mg PO PRN PRN 03/09/14 Reported Levothyroxine Sodium 50 Mcg Tablet 50 Mcg PO DAILY 03/09/14 Reported Ranitidine Hcl 300 Mg Capsule 300 Mg PO BID 03/09/14 Reported Impression . 1. Acute respiratory failure secondary to combined metabolic and respiratory acidosis, pleural effusion----improved 2. Encephalopathy, contributed by hypercapnia. Hypothyroidism may have co ntributed in that as well ---resolved 3. Abnormal chest x-ray consistent with congestive heart failure with vascular markings been prominent and right lower lobe effusion along with cardiomegaly. 4. Morbid obesity needs to be ruled out for sleep apnea as an outpatient. I would recommend doing a sleep study. 5. Hypothyroidism with an elevated TSH level 6. Gram positive rods in blood Plan . 1. Cont. hemodialysis with UF follow renal recs. 2. ABGs.as needed 3. Avoid any sedatives/benzos 4. CT reviewed. Moderate Right effusion, suspect transudate. s/p right thoracentesis. check cxr. re-start coumadin. 5. DVT prophylaxis. 6. P.r.n. bronchodilators. 7. Abx per DANYELLE ELLIS MD Apr 19, 2019 11:29
[2019-04-19] MEDS: ALBUTEROL SULFATE 2.5 MG/3 ML NEBU. NEB SCH ×2 (11:35→20:23)
--- NOTE | 2019-04-19 12:12 | RAD ---
PORTABLE CHEST 1V 04/19/2019 10:57 AM INDICATION: Postthoracentesis COMPARISON: CT chest 04/16/2019 TECHNIQUE: Portable frontal view of the chest is provided. FINDINGS: The cardiomediastinal silhouette is similar in appearance. Interval decrease in right pleural effusion. There is small residual right pleural effusion with adjacent compressive atelectasis versus infiltrate. Mild to moderate pulmonary vascular congestion. No pneumothorax. Left subclavian venous catheter is identified with the distal tip projecting over the cavoatrial junction. Suspect a SVC stent. IMPRESSION: Improved right pleural effusion with small residual pleural fluid with adjacent compressive atelectasis versus infiltrate. No pneumothorax. Electronically signed by: Nevin Andersen MD (04/19/2019 12:09 PM) [facility]
[2019-04-19] MEDS: VANCOMYCIN PER PHARMACY MC PRN (12:31)
[2019-04-19] MEDS: ASPIRIN ENTERIC COATED 81 MG TABLET.DR. PO SCH (12:39)
--- NOTE | 2019-04-19 13:53 | RAD ---
Ultrasound-guided right-sided thoracentesis 04/19/2019 11:49 AM Indication: ct guided right thoracentesis Friday, coumadin on hold Procedure: Informed consent was obtained. A timeout procedure was performed. Sonographic evaluation of the right chest was performed demonstrating moderate pleural effusion. The right posterior chest was prepped and draped in sterile fashion. 1% lidocaine without epinephrine was administered for local anesthesia. Real-time ultrasonographic guidance was used in passing a 5 [place] FabriQateeh catheter into the right pleural space. 1 L of serosanguineous pleural fluid was removed. Samples of fluid were sent to the lab for further evaluation per ordering physician request. The catheter was removed and pressure held to achieve hemostasis. A sterile dressing was applied. No immediate complications were identified. The patient tolerated the procedure well. Impression: Right sided ultrasound-guided thoracentesis
--- NOTE | 2019-04-19 16:03 | PDOC ---
PROGRESS NOTES Subjective She had her thoracentesis this am with 900 cc removed, no complications, remains on IV antibiotics pending cultures Objective Afebrile General: NAD Heart: RRR Lungs: clear anteriorly Abd: obese, soft , non tender Ext: no cyanosis Vital Signs Vital Signs Date Time Temp Pulse Resp B/P (MAP) Pulse Ox O2 Delivery O2 Flow Rate FiO2 04/19/19 11:36 95 Nasal Cannula 0.5 04/19/19 11:00 97.8 69 20 137/51 (79) 97.8 I & O Intake and Output 04/19/19 07:00 Intake Total 320 ml Output Total 50 ml Balance 270 ml Intake Oral 220 ml IV Total 100 ml Output Urine Total 50 ml Assessment and Plan Problems Medical Problems: (1) Right lower lobe pneumonia Status: Acute acute hypercapnic respiratory failure - pulm following - Bipap encephalopathy, likely toxic and metabolic - continue to hold home dose of pain and anxiolytic meds suspected aspiration pneumonia - pulm and ID consults sphenoid sinusitis per imaging - ID consult 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
--- NOTE | 2019-04-19 16:09 | NUR ---
Pharmacy Warfarin Dosing Note S:Pharmacy consulted to assist with anticoagulation therapy started with target INR: 2 -3 O:ROSE CAMPOS is a 73 year old F with DVT/PE LABS: Last INR: 1.6 Last HGB: 10.3 Last HCT: 32.7 Last PLT: 122 Last dose of Hold given on 04/18/19 at 1600 Previous Regimen: Vitamin K given: N Drug Interaction Changes: Ongoing Drug Interactions: levofloxacin A:INR of 1.6 is below desired range. Target range for this patient is: 2 -3 P: Warfarin dose: 7.5 mg Today at 1600 Bridge Therapy: Heparin q8h Next INR due IN AM Pharmacy anticoagulation service will continue to follow. NINA RODGERS, [facility], 04/19/19 2078
[2019-04-19] MEDS ORDERED: WARFARIN 7.5 MG TABLET. PO ONE (16:30)
[2019-04-19] MEDS: GABAPENTIN 300 MG CAPSULE. PO SCH (21:45)
[2019-04-20 03:05] VITALS: BP 92/39
[2019-04-20 05:40] LABS: CALCIUM 7.6 mg/dL (8.5-10.1); CREATININE 5.9 mg/dL (0.6-1.0); GFR 8.4; POTASSIUM 4.2 mmol/L (3.5-5.1)
[2019-04-20] MEDS: PIPERACILLIN/TAZOBACTAM 2.25 GM in IV NORMAL SALINE 50ML 50 ML IV SCH ×3 (05:43→20:59)
[2019-04-20 06:03] LABS: PROTHROMBIN TIME PATIENT 17.3 SEC (11.7-14.0)
[2019-04-20] MEDS: LEVOTHYROXINE 100 MCG TABLET PO SCH (06:35)
[2019-04-20] MEDS: MIDODRINE 5 MG TABLET PO SCH ×3 (06:37→17:34)
[2019-04-20 07:00] VITALS: BP 103/38
--- NOTE | 2019-04-20 07:27 | PDOC ---
Infectious Disease Note Subjective Subjective Comfortable but feels fatigued Breathing some better. No cough Hungry Still some hand weakness Denies SOA/N/V/D/F/C ROS ROS o/w Vital Sign Vital Signs Vital Signs Date Time Temp Pulse Resp B/P (MAP) Pulse Ox O2 Delivery O2 Flow Rate FiO2 04/20/19 06:37 75 92/39 04/20/19 03:05 98.3 18 95 Nasal Cannula 2.0 98.3 Physical Exam PHYSICAL EXAM GENERAL: Propped up in bed, alert HEENT: nml conjunctival Oropharynx pink and moist. Edentulous. NECK: Supple. LUNGS: Clear to auscultation. HEART: S1, S2. ABDOMEN: Obese, soft, and nontender with bowel sounds present. EXTREMITIES: No gross edema or cyanosis. LUE- AVF area bruised SKIN: Warm to touch. No signs of rash. NEUROLOGIC: Alert, and answering questions appropriately. Labs Lab Laboratory Tests Test 04/19/19 11:45 04/19/19 17:02 04/19/19 20:45 04/20/19 04:50 Glucose (Fingerstick) 97 mg/dL (70-99) 86 mg/dL (70-99) 129 mg/dL (70-99) Prothrombin Time 17.3 SEC (11.7-14.0) Prothromb Time International Ratio 1.4 (0.8-1.1) Sodium Level 141 mmol/L (136-145) Potassium Level 4.2 mmol/L (3.5-5.1) Chloride Level 104 mmol/L (98-107) Carbon Dioxide Level 32 mmol/L (21-32) Anion Gap 5 (6-14) Blood Urea Nitrogen 26 mg/dL (7-20) Creatinine 5.9 mg/dL (0.6-1.0) Estimated GFR (Cockcroft-Gault) 8.4 Glucose Level 126 mg/dL (70-99) Calcium Level 7.6 mg/dL (8.5-10.1) Micro Impression: Moderate to large right pleural effusion with adjacent lower lobe atelectatic consolidation. Small left pleural effusion. Anasarca. Small hiatal hernia. Microbiology 04/14/19 Blood Culture - Preliminary, Resulted NO GROWTH AFTER 2 DAYS Objective Assessment Leukopenia better yesterday RLL infiltrate and pleural effusion - s/p 1 liter removed 04/19 Bactermia 1/3 GPR 04/14 - like contamination Sinus disease on CT Constipation Bradycardia CKD/HD via AV fistula -s/p fistulogram/thrombolysis/angioplasty, 04/01. Warfarin therapy Morbid obesity Hypothyroidism h/o Proteus (R tetra) Plan Plan of Care Hope to discont vancomycin and Zosyn today- d/w [facility] and micro - should have confirmation soon but clinically she is better and likely this is a contamination and she has received a week of IV and also await Prelim thoracentesis numbers Off levaquin with bradycardia. Says got a flu shot prior to admit CASSANDRA GARBER MD Apr 20, 2019 07:27
[2019-04-20] MEDS: ALBUTEROL SULFATE 2.5 MG/3 ML NEBU. NEB SCH ×2 (08:19→20:45)
[2019-04-20] MEDS: SEVELAMER CARBONATE 800 MG TABLET. PO SCH ×3 (08:47→17:25)
[2019-04-20] MEDS: FLUTICASONE 50MCG/NASAL SPRAY 16GM BOTTLE. NS SCH (08:47)
[2019-04-20] MEDS: LACTOBACILLUS RHAMNOSUS GG 1 CAPSULE. PO SCH ×2 (09:00→20:59)
--- NOTE | 2019-04-20 09:31 | PDOC ---
PULMONARY PROGRESS NOTES Subjective Awake and alert, denies SOB or increase cough s/p right thoracentesis , 950 cc removed Vitals Vital Signs Date Time Temp Pulse Resp B/P (MAP) Pulse Ox O2 Delivery O2 Flow Rate FiO2 04/20/19 08:22 97 Nasal Cannula 2.0 04/20/19 07:00 98.6 73 20 103/38 (59) 98.6 ROS: No Nausea, No Chest Pain, No Abdominal Pain, No Increase Cough General: Alert, No acute distress Lungs: Other (decrease bases) Cardiovascular: S1 Abdomen: Soft, Other (obese) Extremities: Other (1+edema) Labs Laboratory Tests Test 04/18/19 11:32 04/18/19 16:56 04/18/19 20:49 04/19/19 05:00 Glucose (Fingerstick) 110 mg/dL (70-99) 102 mg/dL (70-99) 137 mg/dL (70-99) Prothrombin Time 18.4 SEC (11.7-14.0) Prothromb Time International Ratio 1.6 (0.8-1.1) Test 04/19/19 07:06 04/19/19 11:45 04/19/19 17:02 04/19/19 20:45 Glucose (Fingerstick) 82 mg/dL (70-99) 97 mg/dL (70-99) 86 mg/dL (70-99) 129 mg/dL (70-99) Test 04/20/19 04:50 04/20/19 07:57 Prothrombin Time 17.3 SEC (11.7-14.0) Prothromb Time International Ratio 1.4 (0.8-1.1) Sodium Level 141 mmol/L (136-145) Potassium Level 4.2 mmol/L (3.5-5.1) Chloride Level 104 mmol/L (98-107) Carbon Dioxide Level 32 mmol/L (21-32) Anion Gap 5 (6-14) Blood Urea Nitrogen 26 mg/dL (7-20) Creatinine 5.9 mg/dL (0.6-1.0) Estimated GFR (Cockcroft-Gault) 8.4 Glucose Level 126 mg/dL (70-99) Calcium Level 7.6 mg/dL (8.5-10.1) Glucose (Fingerstick) 76 mg/dL (70-99) Laboratory Tests Test 04/19/19 11:45 04/19/19 17:02 04/19/19 20:45 04/20/19 04:50 Glucose (Fingerstick) 97 mg/dL (70-99) 86 mg/dL (70-99) 129 mg/dL (70-99) Prothrombin Time 17.3 SEC (11.7-14.0) Prothromb Time International Ratio 1.4 (0.8-1.1) Sodium Level 141 mmol/L (136-145) Potassium Level 4.2 mmol/L (3.5-5.1) Chloride Level 104 mmol/L (98-107) Carbon Dioxide Level 32 mmol/L (21-32) Anion Gap 5 (6-14) Blood Urea Nitrogen 26 mg/dL (7-20) Creatinine 5.9 mg/dL (0.6-1.0) Estimated GFR (Cockcroft-Gault) 8.4 Glucose Level 126 mg/dL (70-99) Calcium Level 7.6 mg/dL (8.5-10.1) Test 04/20/19 07:57 Glucose (Fingerstick) 76 mg/dL (70-99) Medications Active Scripts Medications Dose Route/Sig Max Daily Dose Days Date Category Gabapentin 300 Mg Capsule 300 Mg PO QHS 30 01/25/19 Rx Coumadin (Warfarin Sodium) 7.5 Mg Tablet 1 Tab PO DAILY 03/13/18 Reported Hydrocodone-Apap 7.5-325 (Hydrocodone Bit/Acetaminophen) 1 Each Tablet 1 Tab PO BID PRN 05/06/17 Reported Fluticasone Propionate Nasal Victor (Fluticasone Propionate) 16 Gm Victor.susp 2 Victor NS DAILY 05/06/17 Reported Renvela (Sevelamer Carbonate) 800 Mg Tablet 800 Mg PO TIDWMEALS 05/06/17 Reported Ibuprofen 800 Mg Tablet 800 Mg PO PRN Q6HRS PRN 05/06/17 Reported Vitamin D3 (Cholecalciferol (Vitamin D3)) 2,000 Unit Tab.chew 1,000 Unit PO 05/06/17 Reported Ventolin Hfa Inhaler (Albuterol Sulfate) 18 Gm Hfa.aer.ad 2 Puff INH BID 05/06/17 Reported Amlodipine Besylate 5 Mg Tablet 5 Mg PO DAILY 05/06/17 Reported Nephro-Donovan Tablet (Folic Acid/Vitamin B Comp W-C) 0.8 Mg Tablet 0.8 Mg PO DAILY 12/20/16 Reported Sensipar (Cinacalcet Hcl) 30 Mg Tablet 30 Mg PO DAILY 12/20/16 Reported Low Dose Aspirin Ec (Aspirin) 81 Mg Tablet.dr 1 Tab PO DAILY 03/09/14 Reported Midodrine Hcl 5 Mg Tablet 5 Mg PO PRN PRN 03/09/14 Reported Levothyroxine Sodium 50 Mcg Tablet 50 Mcg PO DAILY 03/09/14 Reported Ranitidine Hcl 300 Mg Capsule 300 Mg PO BID 03/09/14 Reported Impression . 1. Acute respiratory failure secondary to combined metabolic and respiratory acidosis, pleural effusion----improved 2. Encephalopathy, contributed by hypercapnia. Hypothyroidism may have contributed in that as well ---resolved 3. Abnormal chest x-ray consistent with congestive heart failure with vascular markings been prominent and right lower lobe effusion along with cardiomegaly. 4. Morbid obesity needs to be ruled out for sleep apnea as an outpatient. I would recommend doing a sleep study. 5. Hypothyroidism with an elevated TSH level 6. Gram positive rods in blood Plan . 1. Cont. hemodialysis with UF follow renal recs. 2. ABGs.as needed 3. Avoid any sedatives/benzos 4. CT reviewed. Moderate Right effusion, suspect transudate. s/p right thoracentesis. check cxr. re-start coumadin. 5. DVT prophylaxis. 6. P.r.n. bronchodilators. 7. Abx per RANDALL RODRIGUEZ MD Apr 20, 2019 09:31
--- NOTE | 2019-04-20 10:44 | PDOC ---
Renal-Progress Notes Subjective Notes Notes LESS SOB History of Present Illness Hx of present illness STABLE Vitals Vitals Vital Signs Date Time Temp Pulse Resp B/P (MAP) Pulse Ox O2 Delivery O2 Flow Rate FiO2 04/20/19 08:22 97 Nasal Cannula 2.0 04/20/19 07:00 98.6 73 20 103/38 (59) 98.6 Weight Weight [ ] I.O. Intake and Output Intake and Output 04/20/19 07:00 Intake Total 820 ml Balance 820 ml Intake Oral 720 ml IV Total 100 ml Labs Labs Laboratory Tests Test 04/19/19 11:45 04/19/19 17:02 04/19/19 20:45 04/20/19 04:50 Glucose (Fingerstick) 97 mg/dL (70-99) 86 mg/dL (70-99) 129 mg/dL (70-99) Prothrombin Time 17.3 SEC (11.7-14.0) Prothromb Time International Ratio 1.4 (0.8-1.1) Sodium Level 141 mmol/L (136-145) Potassium Level 4.2 mmol/L (3.5-5.1) Chloride Level 104 mmol/L (98-107) Carbon Dioxide Level 32 mmol/L (21-32) Anion Gap 5 (6-14) Blood Urea Nitrogen 26 mg/dL (7-20) Creatinine 5.9 mg/dL (0.6-1.0) Estimated GFR (Cockcroft-Gault) 8.4 Glucose Level 126 mg/dL (70-99) Calcium Level 7.6 mg/dL (8.5-10.1) Test 04/20/19 07:57 Glucose (Fingerstick) 76 mg/dL (70-99) Micro Micro Microbiology 04/14/19 Blood Culture - Final, Complete NO GROWTH AFTER 5 DAYS Review of Systems Constitutional: yes: other (CONFUSED) Physical Exam General Appearance: no apparent distress Skin: warm Respiratory: decreased breath sounds Heart: S1S2 Abdomen: soft, bowel sounds present Extremities: pulses present Neurology: alert Musculoskeletal: Osteoarthritis Assessment Assessment IMP ESRD ANEMIA MET ENCEPHALOPATHY OBESITY HYPOTENSION-RESOLVED HTN NOW RIGHT SIDE PLEURAL EFFUSION S/P THORACENTESIS PLAN RESUME LOWER DOSE NORVASC IF STILL HYPERTENSIVE THROUGH THE DAY CONT MIDODRINE HD TODAY UF TO DW CONT REECE MARTINEZ MD Apr 20, 2019 10:44
[2019-04-20 11:00] VITALS: BP 91/42
--- NOTE | 2019-04-20 11:24 | NUR ---
Pharmacy Warfarin Dosing Note S:Pharmacy consulted to assist with anticoagulation therapy started with target INR: 2 -3 O:ROSE CAMPOS is a 73 year old F with DVT/PE LABS: Last INR: 1.4 Last HGB: 10.3 Last HCT: 32.7 Last PLT: 122 Last dose of 7.5 mg given on 04/19/19 at 1742 Previous Regimen: Vitamin K given: N Drug Interaction Changes: Ongoing Drug Interactions: levofloxacin A:INR of 1.4 is below desired range. Target range for this patient is: 2 -3 P: Warfarin dose: 7.5 mg Today at 1600 Bridge Therapy: Heparin q8h Next INR due IN AM Pharmacy anticoagulation service will continue to follow. NINA RODGERS [facility], 04/20/19 1123
[2019-04-20] MEDS: VANCOMYCIN PER PHARMACY MC PRN (11:28)
[2019-04-20] MEDS ORDERED: IV NORMAL SALINE 500ML BAG 250 ML IV ONE (11:30)
[2019-04-20] MEDS ORDERED: IV NORMAL SALINE 1000ML BAG 1,000 ML IV PRN ×2 (12:39)
[2019-04-20] MEDS ORDERED: DIALYSIS PATIENT. MC PRN ×2 (12:45)
[2019-04-20] MEDS ORDERED: LIDOCAINE 1% PF 2 ML VIAL. ID ONE (12:45)
[2019-04-20] MEDS: HEPARIN for SUB-Q USE 5,000 UNIT/ML VIAL. SQ SCH ×2 (14:00→21:01)
[2019-04-20] MEDS ORDERED: WARFARIN 7.5 MG TABLET. PO ONE (16:00)
[2019-04-20] MEDS ORDERED: VANCOMYCIN 500 MG in IV NORMAL SALINE 100ML 100 ML IV SCH (16:00)
--- NOTE | 2019-04-20 16:06 | PATHOLOGY ---
Note [facility] Accession Number: [id number] TESTS RESULT FLAG UNITS REF RANGE LAB Clinician Provided Cytology Information No. of containers..01 Other (Miscellaneous) Source: RT PLEURAL FLUID DIAGNOSIS: RT PLEURAL FLUID NEGATIVE FOR MALIGNANT CELLS. FOCALLY REACTIVE MESOTHELIAL CELLS AND FEW INFLAMMATORY CELLS PRESENT. THIS INTERPRETATION INCLUDES EVALUATION OF A CELL BLOCK. Signed out by: 02 Beny Nelson MD, Pathologist NPI- [id number] Performed by: Caroline Canales, Program Support Specialist ([facility]) Harjeet Crews, Program Support Specialist ([facility]) Gross description: 35ML, YELLOW, CLOUDY /LCS 07/13/1840 0000 Local FLAG LEGEND: L-Low Normal,H-High Normal,LL-Alert Low,HH-Alert High <-Panic Low,>-Panic High,A-Abnormal,AA-Critical Abnormal Performed at: [facility] [address] [place] [address] Jose Alberto Burnham MD, [address] [facility] [address] [place] [address] Beny Nelson MD, Specimen Comment: A courtesy copy of this report has been sent to Specimen Comment: [phone], , . Specimen Comment: Report sent to ,DR CHERRY / DR HUFF Specimen Comment: A duplicate report has been generated due to demographic updates. Performed at: [address], [place], [place] [id number] MD Jose Alberto Burnham MD Phone: [phone]
--- NOTE | 2019-04-20 16:51 | PDOC2 ---
NEUROLOGY CONSULT Date of Admission Date of Admission DATE: 04/20/19 TIME: 16:37 Reason for Consult Reason for Consult: IMPRESSION: Essential tremor. Generalized weakness. Hypocalcemia, Ca++ 7.6 Right LL infiltrate. Pulmonary effusion, R > L. Renal failure on dialysis. Cardiomegaly. CAD. DM. HTN. HLD. Hypothyroidism, TSH 10.97 Uterine cancer. Obesity. RECOMMENDATIONS/PLAN: Start Topamax 25 mg daily with titration up. Continue Neurontin 300 mg HS, may increase dose (though renal failure concern). Beta-Lizet not given due to hypotension. Treat medical diseases. OT/PT. HISTORY OF THE PRESENT ILLNESS: This is a 73-year-old female patient with above medical diseases was brought to the ER of [facility] due to weakness and grogginess after dialysis. Neurology was requested for consultation on 04/20/19 for tremors. She stated she has been having tremors in her hands for about 6 months and her tremors seemed became worse. She stated her LE were not affected. No stiffness. Past Medical History Cardiovascular: HTN, Other Pulmonary: Asthma GI: GERD Heme/Onc: Anemia NOS, Cancer Psych: Anxiety Renal/: Chronic renal failure Endocrine: Diabetes, Hypothyroidism Past Surgical History Tonsillectomy, Hysterectomy Family History Hypertension, Kidney Disease ALLERGY: NKDA MEDICATIONS: Refer to MAR SOCIAL HISTORY: Lives alone. Lives in [facility]. Denies current smoking, drinking, and illicit drug use. REVIEW OF SYSTEMS: Constitutional: Obese. Head: No traumatic brain or head injury. Skin: No edema, or rash. Ear: No infection, tinnitus. Eyes: No vision loss or color blindness. Nose: No bleeding or purulent discharges. Hearing: Mild hearing decrease. Neck: No injury. Breast: No history of cancer, masses,or discharges. Cardiac: CAD, HTN, HLD. Pulmonary: Pneumonia. GI: No GI ulcer, GI bleeding. Urinary/genital: Renal failure on dialysis. Endocrinologic: Diabetes Mellitus, obesity. Skeletomuscular: Generalized weakness. Neurological: see HP. Psychiatric: Denies drug use/abuse. Otherwise, not [id number] review of systems. PHYSICAL EXAMINATION: General appearance is in subacute distress. HEENT: Normocephalic and nontraumatic. Eyes, nose, ears, and throat are unremarkable. Neck is supple. No lymphadenopathy. No crepitus. Cardiovascular: S1, S2, regular rate and rhythm. Pulmonary: Decreased to auscultation bilaterally. Abdomen: Bowel sounds are positive. Extremities: No rash, lesions, or edema. No restriction of range of motion NEUROLOGICAL EXAMINATION: Drowsiness. Not fully oriented to time, place and person. PERRL. EOMI. CN: no focal findings. Muscle tone: within normal. Muscle strength: 4 DTR: 1 Plantar reflex: Neutral response bilaterally Gait: not examined in bed. Sensory exam: no abnormal findings. No cerebellar signs elicited. Current Medications Current Medications Current Medications Levofloxacin/ Dextrose (Levaquin Per Pharmacy) 1 each PRN DAILY PRN MC SEE COMMENTS; Start 04/14/19 at 13:15; Stop 04/14/19 at 15:43; Status DC Vancomycin HCl (Vanco Per Pharmacy) 1 each PRN DAILY PRN MC SEE COMMENTS Last administered on 04/16/19at 08:56; Start 04/14/19 at 13:15; Stop 04/16/19 at 14:44; Status DC Vancomycin HCl 2 gm/Sodium Chloride 500 ml @ 250 mls/hr 1X ONCE IV Last administered on 04/14/19at 18:29; Start 04/14/19 at 13:30; Stop 04/14/19 at 1 5:29; Status DC Levofloxacin/ Dextrose 100 ml @ 100 mls/hr 1X ONCE IV Last administered on 04/14/19at 13:54; Start 04/14/19 at 13:45; Stop 04/14/19 at 14:44; Status DC Levofloxacin/ Dextrose 100 ml @ 100 mls/hr Q48H IV ; Start 04/16/19 at 14:00; Status Cancel Acetaminophen (Tylenol) 650 mg PRN Q4HRS PRN PO TEMP OVER 100.4F OR MILD PAIN; Start 04/14/19 at 15:45 Al Hydroxide/Mg Hydroxide (Mylanta Plus Xs) 30 ml PRN DAILY PRN PO HEARTBURN / GAS; Start 04/14/19 at 15:45 Clonidine HCl (Catapres) 0.1 mg PRN Q6HRS PRN PO SBP>160 OR DBP>90; Start 04/14/19 at 15:45 Docusate Sodium (Colace) 100 mg PRN BID PRN PO CONSTIPATION Last administered on 04/19/19at 12:39; Start 04/14/19 at 15:45 Enoxaparin Sodium (Lovenox 40mg Syringe) 40 mg Q24H SQ ; Start 04/14/19 at 18:00; Status Cancel Heparin Sodium (Porcine) (Heparin Sodium) 5,000 unit Q8HRS SQ Last administered on 04/17/19 14:16; Start 04/14/19 at 22:00; Stop 04/17/19 at 20:21; Status DC Amlodipine Besylate (Norvasc) 5 mg DAILY PO Last administered on 04/16/19 11:42; Start 04/14/19 at 17:30; Stop 04/17/19 at 10:28; Status DC Aspirin (Ecotrin) 81 mg DAILY PO Last administered on 04/19/19 12:39; Start 04/14/19 at 17:30 Cinacalcet (Sensipar) 30 mg DAILY PO Last administered on 04/19/19 08:28; Start 04/14/19 at 17:30 Fluticasone Propionate (Flonase) 2 spray DAILY NS Last administered on 04/20/19 08:47; Start 04/14/19 at 17:30 Vitamin B Complex/ Vitamin C (Sandra-Donovan) 1 tab DAILY PO Last administered on 04/19/19 08:28; Start 04/14/19 at 17:30 Gabapentin (Neurontin) 300 mg QHS PO Last administered on 04/19/19 21:45; Start 04/14/19 at 21:00 Levothyroxine Sodium (Synthroid) 50 mcg DAILY PO ; Start 04/14/19 at 17:00; Stop 04/15/19 at 08:38; Status DC Midodrine (Proamatine) 5 mg [id number] PO Last administered on 04/20/19 12:27; Start 04/14/19 at 18:00 Sevelamer Carbonate (Renvela) 800 mg TIDWMEALS PO Last administered on 04/20/19 08:47; Start 04/14/19 at 17:30 Warfarin Sodium (Coumadin) 7.5 mg DAILY16 PO Last administered on 04/14/19 17:35; Start 04/14/19 at 17:11; Stop 04/15/19 at 10:15; Status DC Albuterol Sulfate (Ventolin Neb Soln) 2.5 mg RTBID NEB Last administered on 04/20/19at 08:19; Start 04/14/19 at 20:00 Famotidine (Pepcid) 20 mg Q48H PO Last administered on 04/18/19at 20:44; Start 04/14/19 at 21:00 Warfarin Sodium (Coumadin Per Pharmacy) 1 each PRN DAILY PRN MC SEE COMMENTS Last administered on 04/16/19at 09:08; Start 04/14/19 at 17:15; Stop 04/16/19 at 12:48; Status DC Dextrose (Dextrose 50%-Water Syringe) 12.5 gm PRN Q15MIN PRN IV SEE COMMENTS Last administered on 04/15/19at 14:10; Start 04/14/19 at 17:15 Vancomycin HCl (Vancomycin Random Level) 1 each 1X ONCE MC ; Start 04/17/19 at 06:00; Stop 04/16/19 at 14:47; Status DC Sodium Bicarbonate (Sodium Bicarb Adult 8.4% Syr) 100 meq 1X ONCE IV Last administered on 04/14/19at 20:09; Start 04/14/19 at 20:00; Stop 04/14/19 at 20:05; Status DC Sodium Chloride 1,000 ml @ 1,000 mls/hr Q1H PRN IV hypotension; Start 04/15/19 at 07:35; Stop 04/15/19 at 13:34; Status DC Albumin Human 200 ml @ 200 mls/hr 1X PRN PRN IV Hypotension; Start 04/15/19 at 07:45; Stop 04/15/19 at 13:44; Status DC Acetaminophen (Tylenol) 500 mg 1X PRN PRN PO MILD PAIN / TEMP; Start 04/15/19 at 07:45; Stop 04/16/19 at 07:44; Status DC Diphenhydramine HCl (Benadryl) 25 mg 1X PRN PRN IV ITCHING; Start 04/15/19 at 07:45; Stop 04/16/19 at 07:44; Status DC Diphenhydramine HCl (Benadryl) 25 mg 1X PRN PRN IV ITCHING; Start 04/15/19 at 07:45; Stop 04/16/19 at 07:44; Status DC Sodium Chloride 1,000 ml @ 400 mls/hr Q2H30M PRN IV PATENCY; Start 04/15/19 at 07:35; Stop 04/15/19 at 19:34; Status DC Info (PHARMACY MONITORING -- do not chart) 1 each PRN DAILY PRN MC SEE COMMENTS; Start 04/15/19 at 07:45; Status Cancel Info (PHARMACY MONITORING -- do not chart) 1 each PRN DAILY PRN MC SEE COMMENTS; Start 04/15/19 at 07:45; Status UNV Lidocaine HCl (Xylocaine-Mpf 1% 2ml Vial) 2 ml 1X ONCE INJ ; Start 04/15/19 at 07:45; Stop 04/15/19 at 07:52; Status DC Levothyroxine Sodium (Synthroid) 100 mcg DAILY06 PO Last administered on 04/20/19at 06:35; Start 04/15/19 at 09:00 Piperacillin Sod/ Tazobactam Sod 2.25 gm/Sodium Chloride 50 ml @ 100 mls/hr Q8HRS IV ; Start 04/15/19 at 12:00; Status Cancel Piperacillin Sod/ Tazobactam Sod (Zosyn Per Pharmacy) 1 each PRN DAILY PRN MC SEE COMMENTS; Start 04/15/19 at 10:30; Stop 04/16/19 at 14:44; Status DC Piperacillin Sod/ Tazobactam Sod 2.25 gm/Sodium Chloride 50 ml @ 100 mls/hr Q8H IV Last administered on 04/16/19at 11:42; Start 04/15/19 at 11:00; Stop 04/16/19 at 14:44; Status DC Amoxicillin/ Clavulanate Potassium (Augmentin 500/ 125mg) 1 tab DAILY PO ; Start 04/16/19 at 14:45; Stop 04/16/19 at 15:23; Status DC Piperacillin Sod/ Tazobactam Sod 2.25 gm/Sodium Chloride 50 ml @ 100 mls/hr Q8HRS IV Last administered on 04/20/19at 05:43; Start 04/16/19 at 16:00 Vancomycin HCl (Vanco Per Pharmacy) 1 each PRN DAILY PRN MC SEE COMMENTS Last administered on 04/20/19at 11:28; Start 04/16/19 at 15:30 Vancomycin HCl (Vancomycin Random Level) 1 each 1X ONCE MC Last administered on 04/17/19at 06:00; Start 04/17/19 at 06:00; Stop 04/17/19 at 06:01; Status DC Lactobacillus Rhamnosus (Culturelle) 1 cap BID PO Last administered on 04/19at 21:45; Start 04/16/19 at 21:00 Sodium Chloride 1,000 ml @ 1,000 mls/hr Q1H PRN IV hypotension; Start 04/17/19 at 07:15; Stop 04/17/19 at 13:14; Status DC Acetaminophen (Tylenol) 500 mg 1X PRN PRN PO MILD PAIN / TEMP; Start 04/17/19 at 07:15; Stop 04/18/19 at 07:14; Status DC Sodium Chloride 1,000 ml @ 400 mls/hr Q2H30M PRN IV PATENCY; Start 04/17/19 at 07:15; Stop 04/17/19 at 19:14; Status DC Info (PHARMACY MONITORING -- do not chart) 1 each PRN DAILY PRN MC SEE COMMENTS; Start 04/17/19 at 07:15; Status UNV Info (PHARMACY MONITORING -- do not chart) 1 each PRN DAILY PRN MC SEE COMMENTS; Start 04/17/19 at 07:15 Vancomycin HCl 500 mg/Sodium Chloride 100 ml @ 100 mls/hr QTUTHSA IV ; Start 04/20/19 at 16:00 Vancomycin HCl 1 gm/Sodium Chloride 250 ml @ 250 mls/hr 1X ONCE IV Last administered on 04/17/19at 14:50; Start 04/17/19 at 15:00; Stop 04/17/19 at 15:59; Status DC Darbepoetin Andriy (ARANESP for DIALYSIS PTS) 60 mcg Sa SQ Last administered on 04/17/19at 21:13; Start 04/17/19 at 21:00 Phytonadione (Vitamin K Ampule) 10 mg 1X ONCE SQ Last administered on 04/18/19at 11:50; Start 04/18/19 at 10:00; Stop 04/18/19 at 15:10; Status DC Phytonadione 10 mg/Dextrose 51 ml @ 102 mls/hr 1X ONCE IV ; Start 04/18/19 at 13:45; Stop 04/18/19 at 15:10; Status DC Warfarin Sodium (Coumadin Per Pharmacy) 1 each PRN DAILY PRN MC SEE COMMENTS Last administered on 04/20/19at 11:24; Start 04/19/19 at 16:00 Warfarin Sodium (Coumadin) 7.5 mg 1X WARF ONCE PO Last administered on 04/19/19at 17:42; Start 04/19/19 at 16:30; Stop 04/19/19 at 16:31; Status DC Heparin Sodium (Porcine) (Heparin Sodium) 5,000 unit Q8HRS SQ ; Start 04/20/19 at 14:00 Sodium Chloride 250 ml @ 250 mls/hr 1X ONCE IV Last administered on 04/20/19at 11:57; Start 04/20/19 at 11:30; Stop 04/20/19 at 12:29; Status DC Warfarin Sodium (Coumadin) 7.5 mg 1X WARF ONCE PO ; Start 04/20/19 at 16:00; Stop 04/20/19 at 16:01; Status DC Sodium Chloride 1,000 ml @ 1,000 mls/hr Q1H PRN IV hypotension; Start 04/20/19 at 12:39; Stop 04/20/19 at 18:38 Sodium Chloride 1,000 ml @ 400 mls/hr Q2H30M PRN IV PATENCY; Start 04/20/19 at 12:39; Stop 04/21/19 at 00:38 Info (PHARMACY MONITORING -- do not chart) 1 each PRN DAILY PRN MC SEE COMMENTS; Start 04/20/19 at 12:45; Status UNV Info (PHARMACY MONITORING -- do not chart) 1 each PRN DAILY PRN MC SEE COMMENTS; Start 04/20/19 at 12:45; Status UNV Lidocaine HCl (Xylocaine-Mpf 1% 2ml Vial) 2 ml 1X ONCE ID Last administered on 04/20/19at 13:02; Start 04/20/19 at 12:45; Stop 04/20/19 at 12:48; Status DC Active Scripts Active Gabapentin 300 Mg Capsule 300 Mg PO QHS 30 Days Reported Coumadin (Warfarin Sodium) 7.5 Mg Tablet 1 Tab PO DAILY Hydrocodone-Apap 7.5-325 (Hydrocodone Bit/Acetaminophen) 1 Each Tablet 1 Tab PO BID PRN Fluticasone Propionate Nasal [place] (Fluticasone Propionate) 16 Gm Exeter.susp 2 [place] NS DAILY Renvela (Sevelamer Carbonate) 800 Mg Tablet 800 Mg PO TIDWMEALS Ibuprofen 800 Mg Tablet 800 Mg PO PRN Q6HRS PRN Vitamin D3 (Cholecalciferol (Vitamin D3)) 2,000 Unit Tab.chew 1,000 Unit PO Ventolin Hfa Inhaler (Albuterol Sulfate) 18 Gm Hfa.aer.ad 2 Puff INH BID Amlodipine Besylate 5 Mg Tablet 5 Mg PO DAILY Nephro-Donovan Tablet (Folic Acid/Vitamin B Comp W-C) 0.8 Mg Tablet 0.8 Mg PO DAILY Sensipar (Cinacalcet Hcl) 30 Mg Tablet 30 Mg PO DAILY Low Dose Aspirin Ec (Aspirin) 81 Mg Tablet.dr 1 Tab PO DAILY Midodrine Hcl 5 Mg Tablet 5 Mg PO PRN PRN Levothyroxine Sodium 50 Mcg Tablet 50 Mcg PO DAILY Ranitidine Hcl 300 Mg Capsule 300 Mg PO BID Allergies Allergies: Allergies Coded Allergies Type Severity Reaction Last Updated Verified No Known Medication Allergies Allergy Unknown 05/07/17 Yes ROS Review of System The patient denies any associated fevers, chills, headache, ear pain, rhinorrhea, sore throat, stiff neck, productive cough, chest pain, shortness of breath, back or flank pain, abdominal pain, nausea, vomiting, diarrhea, constipation, dysuria, rash, numbness, weakness, tingling, incontinence, difficulty ambulating, or diaphoresis. Physical Exam Physical Exam General: Well developed, well nourished, no acute distress, well appearing HEENT: Pupils equally round and reactive to light, EOMI, no discharge, normal conjunctiva Neck: Supple, no nuchal rigidity, no JVD, trachea midline, no tenderness Cardiac: RRR, no murmurs, no gallops, no rubs Chest/Lungs: CTAB, no wheeze, no rhonchi, no crackles Abdomen: soft, non-distended, no guarding, no peritoneal signs, non-tender Back: No tenderness Extremities: no edema, pulses intact, non-tender,capillary refill <3 sec bilateral upper and lower extremities, Neuro: Alert and oriented x 4, no focal deficits, normal speech Vitals Vitals: Vital Signs Date Time Temp Pulse Resp B/P (MAP) Pulse Ox O2 Delivery O2 Flow Rate FiO2 04/20/19 12:27 75 91/42 04/20/19 11:00 98.5 16 96 Nasal Cannula 2.0 98.5 Labs Labs Laboratory Tests Test 04/18/19 16:56 04/18/19 20:49 04/19/19 05:00 04/19/19 07:06 Glucose (Fingerstick) 102 mg/dL (70-99) 137 mg/dL (70-99) 82 mg/dL (70-99) Prothrombin Time 18.4 SEC (11.7-14.0) Prothromb Time International Ratio 1.6 (0.8-1.1) Test 04/19/19 11:45 04/19/19 17:02 04/19/19 20:45 04/20/19 04:50 Glucose (Fingerstick) 97 mg/dL (70-99) 86 mg/dL (70-99) 129 mg/dL (70-99) Prothrombin Time 17.3 SEC (11.7-14.0) Prothromb Time International Ratio 1.4 (0.8-1.1) Sodium Level 141 mmol/L (136-145) Potassium Level 4.2 mmol/L (3.5-5.1) Chloride Level 104 mmol/L (98-107) Carbon Dioxide Level 32 mmol/L (21-32) Anion Gap 5 (6-14) Blood Urea Nitrogen 26 mg/dL (7-20) Creatinine 5.9 mg/dL (0.6-1.0) Estimated GFR (Cockcroft-Gault) 8.4 Glucose Level 126 mg/dL (70-99) Calcium Level 7.6 mg/dL (8.5-10.1) Creatine Kinase 21 U/L (26-192) Vitamin B12 Level 939 pg/mL (247-911) Test 04/20/19 07:57 04/20/19 10:51 Glucose (Fingerstick) 76 mg/dL (70-99) 100 mg/dL (70-99) Laboratory Tests Test 04/19/19 17:02 04/19/19 20:45 04/20/19 04:50 04/20/19 07:57 Glucose (Fingerstick) 86 mg/dL (70-99) 129 mg/dL (70-99) 76 mg/dL (70-99) Prothrombin Time 17.3 SEC (11.7-14.0) Prothromb Time International Ratio 1.4 (0.8-1.1) Sodium Level 141 mmol/L (136-145) Potassium Level 4.2 mmol/L (3.5-5.1) Chloride Level 104 mmol/L (98-107) Carbon Dioxide Level 32 mmol/L (21-32) Anion Gap 5 (6-14) Blood Urea Nitrogen 26 mg/dL (7-20) Creatinine 5.9 mg/dL (0.6-1.0) Estimated GFR (Cockcroft-Gault) 8.4 Glucose Level 126 mg/dL (70-99) Calcium Level 7.6 mg/dL (8.5-10.1) Creatine Kinase 21 U/L (26-192) Vitamin B12 Level 939 pg/mL (247-911) Test 04/20/19 10:51 Glucose (Fingerstick) 100 mg/dL (70-99) OLIVIA NARANJO MD Apr 20, 2019 16:51
[2019-04-20 17:24] LABS: FREE T4 0.87 ng/dL (0.76-1.46)
[2019-04-20] MEDS: FOLIC/VIT B COMP W-C (RENAL) TABLET. PO SCH (17:25)
[2019-04-20] MEDS: TOPIRAMATE 25 MG TABLET. PO SCH (17:26)
[2019-04-20] MEDS: ASPIRIN ENTERIC COATED 81 MG TABLET.DR. PO SCH (17:26)
[2019-04-20] MEDS: CINACALCET HCL 30 MG TABLET PO SCH (17:26)
--- NOTE | 2019-04-20 17:45 | PDOC ---
PROGRESS NOTES Subjective Waiting on cx results, she is breathing fine after thoracentesis, tremor prominent this am when trying to eat, neurology consulted, dialysis today, she does not feel well enough for discharge today Objective Afebrile General: A&O, tremor of hands present Heart: RRR Lungs: Clear Abd: obese, soft Ext: no LE edema Vital Signs Vital Signs Date Time Temp Pulse Resp B/P (MAP) Pulse Ox O2 Delivery O2 Flow Rate FiO2 04/20/19 17:34 75 91/42 04/20/19 11:00 98.5 16 96 Nasal Cannula 2.0 98.5 I & O Intake and Output 04/20/19 06:59 Intake Total 820 ml Balance 820 ml Intake Oral 720 ml IV Total 100 ml Assessment and Plan acute hypercapnic respiratory failure - pulm following - needed Bipap initially encephalopathy, likely toxic and metabolic - continue to hold home dose of pain and anxiolytic meds, improved suspected aspiration pneumonia - pulm and ID consults sphenoid sinusitis per imaging - ID consult 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 Wellington is her usual filter tank tender Bradycardia HR better- check EKG, troponin, Cardiology consult, continue tele right pleural effusion - thoracentesis done 04/19, resume warfarin, await studies which should help with abx decisions coagulopathy - resume subQ heparin until INR therapeutic HTN - overtreated - Norvasc stopped - monitoring anemia of chronic renal disease - Aranesp hematuria - monitor, not recurred bacteremia - 1/3 bottles, awaiting C&S - ID following and remains on IV abx tremor - essential type- Neuro consult, start low dose topiramate and titrate Joanne HUFF MD Apr 20, 2019 17:45
[2019-04-20 19:40] VITALS: BP 123/50
[2019-04-20] MEDS: FAMOTIDINE 20 MG TABLET. PO SCH (20:59)
[2019-04-20] MEDS: GABAPENTIN 300 MG CAPSULE. PO SCH (20:59)
[2019-04-20 23:00] VITALS: BP 93/36
[2019-04-21 03:40] VITALS: BP 90/32
[2019-04-21] MEDS: MIDODRINE 5 MG TABLET PO SCH ×3 (03:49→17:47)
[2019-04-21] MEDS: PIPERACILLIN/TAZOBACTAM 2.25 GM in IV NORMAL SALINE 50ML 50 ML IV SCH (05:02)
[2019-04-21 05:25] LABS: CALCIUM 7.7 mg/dL (8.5-10.1); GFR 10.2; POTASSIUM 4.3 mmol/L (3.5-5.1)
[2019-04-21 05:28] LABS: BASO % 1 % (0-3); EOS # 0.1 x10^3/uL (0.0-0.7); EOS % 2 % (0-3); HEMATOCRIT 30.8 % (36.0-47.0); HEMOGLOBIN 9.7 g/dL (12.0-15.5); LYMPH # 1.5 x10^3/uL (1.0-4.8); LYMPH % 37 % (24-48); MEAN CORPUSCULAR HEMOGLOBIN 33 pg (25-35); MEAN CORPUSCULAR HGB CONC 32 g/dL (31-37); MEAN CORPUSCULAR VOLUME 106 fL (79-100); MONO # 0.4 x10^3/uL (0.0-1.1); MONO % 9 % (0-9); NEUT # 2.1 x10^3/uL (1.8-7.7); NEUT % 51 % (31-73); PLATELET COUNT 110 x10^3/uL (140-400); RED BLOOD COUNT 2.91 x10^6/uL (3.50-5.40); RED CELL DISTRIBUTION WIDTH 16.1 % (11.5-14.5); WHITE BLOOD COUNT 4.2 x10^3/uL (4.0-11.0)
[2019-04-21] MEDS: LEVOTHYROXINE 100 MCG TABLET PO SCH (05:45)
[2019-04-21] MEDS: HEPARIN for SUB-Q USE 5,000 UNIT/ML VIAL. SQ SCH ×3 (05:49→21:02)
--- NOTE | 2019-04-21 07:10 | PDOC ---
Infectious Disease Note Subjective Subjective Comfortable feels better Breathing some better. No cough Hungry Still some hand weakness bu tbetter Denies SOA/N/V/D/F/C ROS ROS o/w neg Vital Sign Vital Signs Vital Signs Date Time Temp Pulse Resp B/P (MAP) Pulse Ox O2 Delivery O2 Flow Rate FiO2 04/21/19 03:49 59 83/28 04/21/19 03:40 98.7 18 98 Nasal Cannula 2.0 98.7 Physical Exam PHYSICAL EXAM GENERAL: Propped up in bed, alert, looks well HEENT: nml conjunctival Oropharynx pink and moist. Edentulous. NECK: Supple. LUNGS: Clear to auscultation. HEART: S1, S2. ABDOMEN: Obese, soft, and nontender with bowel sounds present. EXTREMITIES: No gross edema or cyanosis. LUE- AVF area bruised SKIN: Warm to touch. No signs of rash. NEUROLOGIC: Alert, and answering questions appropriately. Labs Lab Laboratory Tests Test 04/20/19 07:57 04/20/19 10:51 04/20/19 16:54 04/20/19 20:54 Glucose (Fingerstick) 76 mg/dL (70-99) 100 mg/dL (70-99) 80 mg/dL (70-99) 118 mg/dL (70-99) Test 04/21/19 04:25 White Blood Count 4.2 x10^3/uL (4.0-11.0) Red Blood Count 2.91 x10^6/uL (3.50-5.40) Hemoglobin 9.7 g/dL (12.0-15.5) Hematocrit 30.8 % (36.0-47.0) Mean Corpuscular Volume 106 fL (79-100) Mean Corpuscular Hemoglobin 33 pg (25-35) Mean Corpuscular Hemoglobin Concent 32 g/dL (31-37) Red Cell Distribution Width 16.1 % (11.5-14.5) Platelet Count 110 x10^3/uL (140-400) Neutrophils (%) (Auto) 51 % (31-73) Lymphocytes (%) (Auto) 37 % (24-48) Monocytes (%) (Auto) 9 % (0-9) Eosinophils (%) (Auto) 2 % (0-3) Basophils (%) (Auto) 1 % (0-3) Neutrophils # (Auto) 2.1 x10^3/uL (1.8-7.7) Lymphocytes # (Auto) 1.5 x10^3/uL (1.0-4.8) Monocytes # (Auto) 0.4 x10^3/uL (0.0-1.1) Eosinophils # (Auto) 0.1 x10^3/uL (0.0-0.7) Basophils # (Auto) 0.0 x10^3/uL (0.0-0.2) Prothrombin Time 16.0 SEC (11.7-14.0) Prothromb Time International Ratio 1.3 (0.8-1.1) Sodium Level 140 mmol/L (136-145) Potassium Level 4.3 mmol/L (3.5-5.1) Chloride Level 103 mmol/L (98-107) Carbon Dioxide Level 31 mmol/L (21-32) Anion Gap 6 (6-14) Blood Urea Nitrogen 20 mg/dL (7-20) Creatinine 5.0 mg/dL (0.6-1.0) Estimated GFR (Cockcroft-Gault) 10.2 Glucose Level 96 mg/dL (70-99) Calcium Level 7.7 mg/dL (8.5-10.1) Micro Impression: Moderate to large right pleural effusion with adjacent lower lobe atelectatic consolidation. Small left pleural effusion. Anasarca. Small hiatal hernia. Microbiology 04/14/19 Blood Culture - Preliminary, Resulted NO GROWTH AFTER 2 DAYS Objective Assessment Leukopenia better RLL infiltrate and pleural effusion - s/p 1 liter removed 04/19 Bactermia 07/16 GPR 04/14 - like contamination - Lactobacillus Sinus disease on CT Constipation Bradycardia CKD/HD via AV fistula -s/p fistulogram/thrombolysis/angioplasty, 04/01. Warfarin therapy Morbid obesity Hypothyroidism h/o Proteus (R tetra) Plan Plan of Care Discont vancomycin and Zosyn sinus should be treated- Pleural fluid likely exudate - avoid excessive abx Off levaquin with bradycardia. Says got a flu shot prior to admit D/w nursing ID to sign off CASSANDRA GARBER MD Apr 21, 2019 07:10
[2019-04-21 07:12] VITALS: BP 102/46
[2019-04-21] MEDS: ALBUTEROL SULFATE 2.5 MG/3 ML NEBU. NEB SCH ×2 (08:22→19:53)
[2019-04-21] MEDS: SEVELAMER CARBONATE 800 MG TABLET. PO SCH ×3 (08:50→17:46)
[2019-04-21] MEDS: CINACALCET HCL 30 MG TABLET PO SCH (08:50)
[2019-04-21] MEDS: ASPIRIN ENTERIC COATED 81 MG TABLET.DR. PO SCH (08:50)
[2019-04-21] MEDS: LACTOBACILLUS RHAMNOSUS GG 1 CAPSULE. PO SCH ×2 (08:50→20:55)
[2019-04-21] MEDS: FOLIC/VIT B COMP W-C (RENAL) TABLET. PO SCH (08:50)
[2019-04-21] MEDS: FLUTICASONE 50MCG/NASAL SPRAY 16GM BOTTLE. NS SCH (08:51)
--- NOTE | 2019-04-21 09:33 | PDOC ---
PULMONARY PROGRESS NOTES Subjective PT NOT MORE SOA FEELS BETTER s/p right thoracentesis , 950 cc removed Vitals Vital Signs Date Time Temp Pulse Resp B/P (MAP) Pulse Ox O2 Delivery O2 Flow Rate FiO2 04/21/19 08:23 100 Nasal Cannula 2.0 04/21/19 07:12 98.3 81 18 102/46 (64) 98.3 ROS: No Nausea, No Chest Pain, No Abdominal Pain, No Increase Cough General: Alert, No acute distress Lungs: Other (decrease bases) Cardiovascular: S1 Abdomen: Soft, Other (obese) Extremities: Other (1+edema) Labs Laboratory Tests Test 04/19/19 10:30 04/19/19 11:45 04/19/19 17:02 04/19/19 20:45 Body Fluid Total Protein 2.8 g/dL (.) Body Fluid Lactate Dehydrogenase 70 IU/L (.) Glucose (Fingerstick) 97 mg/dL (70-99) 86 mg/dL (70-99) 129 mg/dL (70-99) Test 04/20/19 04:50 04/20/19 07:57 04/20/19 10:51 04/20/19 16:54 Prothrombin Time 17.3 SEC (11.7-14.0) Prothromb Time International Ratio 1.4 (0.8-1.1) Sodium Level 141 mmol/L (136-145) Potassium Level 4.2 mmol/L (3.5-5.1) Chloride Level 104 mmol/L (98-107) Carbon Dioxide Level 32 mmol/L (21-32) Anion Gap 5 (6-14) Blood Urea Nitrogen 26 mg/dL (7-20) Creatinine 5.9 mg/dL (0.6-1.0) Estimated GFR (Cockcroft-Gault) 8.4 Glucose Level 126 mg/dL (70-99) Calcium Level 7.6 mg/dL (8.5-10.1) Creatine Kinase 21 U/L (26-192) Vitamin B12 Level 939 pg/mL (247-911) Free Thyroxine 0.87 ng/dL (0.76-1.46) Free Triiodothyronine (T3) pg/mL 1.13 pg/mL (2.18-3.98) Glucose (Fingerstick) 76 mg/dL (70-99) 100 mg/dL (70-99) 80 mg/dL (70-99) Test 04/20/19 20:54 04/21/19 04:25 04/21/19 07:25 Glucose (Fingerstick) 118 mg/dL (70-99) 71 mg/dL (70-99) White Blood Count 4.2 x10^3/uL (4.0-11.0) Red Blood Count 2.91 x10^6/uL (3.50-5.40) Hemoglobin 9.7 g/dL (12.0-15.5) Hematocrit 30.8 % (36.0-47.0) Mean Corpuscular Volume 106 fL (79-100) Mean Corpuscular Hemoglobin 33 pg (25-35) Mean Corpuscular Hemoglobin Concent 32 g/dL (31-37) Red Cell Distribution Width 16.1 % (11.5-14.5) Platelet Count 110 x10^3/uL (140-400) Neutrophils (%) (Auto) 51 % (31-73) Lymphocytes (%) (Auto) 37 % (24-48) Monocytes (%) (Auto) 9 % (0-9) Eosinophils (%) (Auto) 2 % (0-3) Basophils (%) (Auto) 1 % (0-3) Neutrophils # (Auto) 2.1 x10^3/uL (1.8-7.7) Lymphocytes # (Auto) 1.5 x10^3/uL (1.0-4.8) Monocytes # (Auto) 0.4 x10^3/uL (0.0-1.1) Eosinophils # (Auto) 0.1 x10^3/uL (0.0-0.7) Basophils # (Auto) 0.0 x10^3/uL (0.0-0.2) Prothrombin Time 16.0 SEC (11.7-14.0) Prothromb Time International Ratio 1.3 (0.8-1.1) Sodium Level 140 mmol/L (136-145) Potassium Level 4.3 mmol/L (3.5-5.1) Chloride Level 103 mmol/L (98-107) Carbon Dioxide Level 31 mmol/L (21-32) Anion Gap 6 (6-14) Blood Urea Nitrogen 20 mg/dL (7-20) Creatinine 5.0 mg/dL (0.6-1.0) Estimated GFR (Cockcroft-Gault) 10.2 Glucose Level 96 mg/dL (70-99) Calcium Level 7.7 mg/dL (8.5-10.1) Laboratory Tests Test 04/20/19 10:51 04/20/19 16:54 04/20/19 20:54 04/21/19 04:25 Glucose (Fingerstick) 100 mg/dL (70-99) 80 mg/dL (70-99) 118 mg/dL (70-99) White Blood Count 4.2 x10^3/uL (4.0-11.0) Red Blood Count 2.91 x10^6/uL (3.50-5.40) Hemoglobin 9.7 g/dL (12.0-15.5) Hematocrit 30.8 % (36.0-47.0) Mean Corpuscular Volume 106 fL (79-100) Mean Corpuscular Hemoglobin 33 pg (25-35) Mean Corpuscular Hemoglobin Concent 32 g/dL (31-37) Red Cell Distribution Width 16.1 % (11.5-14.5) Platelet Count 110 x10^3/uL (140-400) Neutrophils (%) (Auto) 51 % (31-73) Lymphocytes (%) (Auto) 37 % (24-48) Monocytes (%) (Auto) 9 % (0-9) Eosinophils (%) (Auto) 2 % (0-3) Basophils (%) (Auto) 1 % (0-3) Neutrophils # (Auto) 2.1 x10^3/uL (1.8-7.7) Lymphocytes # (Auto) 1.5 x10^3/uL (1.0-4.8) Monocytes # (Auto) 0.4 x10^3/uL (0.0-1.1) Eosinophils # (Auto) 0.1 x10^3/uL (0.0-0.7) Basophils # (Auto) 0.0 x10^3/uL (0.0-0.2) Prothrombin Time 16.0 SEC (11.7-14.0) Prothromb Time International Ratio 1.3 (0.8-1.1) Sodium Level 140 mmol/L (136-145) Potassium Level 4.3 mmol/L (3.5-5.1) Chloride Level 103 mmol/L (98-107) Carbon Dioxide Level 31 mmol/L (21-32) Anion Gap 6 (6-14) Blood Urea Nitrogen 20 mg/dL (7-20) Creatinine 5.0 mg/dL (0.6-1.0) Estimated GFR (Cockcroft-Gault) 10.2 Glucose Level 96 mg/dL (70-99) Calcium Level 7.7 mg/dL (8.5-10.1) Test 04/21/19 07:25 Glucose (Fingerstick) 71 mg/dL (70-99) Medications Active Scripts Medications Dose Route/Sig Max Daily Dose Days Date Category Gabapentin 300 Mg Capsule 300 Mg PO QHS 30 01/25/19 Rx Coumadin (Warfarin Sodium) 7.5 Mg Tablet 1 Tab PO DAILY 03/13/18 Reported Hydrocodone-Apap 7.5-325 (Hydrocodone Bit/Acetaminophen) 1 Each Tablet 1 Tab PO BID PRN 05/06/17 Reported Fluticasone Propionate Nasal Jbphh (Fluticasone Propionate) 16 Gm Jbphh.susp 2 Jbphh NS DAILY 05/06/17 Reported Renvela (Sevelamer Carbonate) 800 Mg Tablet 800 Mg PO TIDWMEALS 05/06/17 Reported Ibuprofen 800 Mg Tablet 800 Mg PO PRN Q6HRS PRN 05/06/17 Reported Vitamin D3 (Cholecalciferol (Vitamin D3)) 2,000 Unit Tab.chew 1,000 Unit PO 05/06/17 Reported Ventolin Hfa Inhaler (Albuterol Sulfate) 18 Gm Hfa.aer.ad 2 Puff INH BID 05/06/17 Reported Amlodipine Besylate 5 Mg Tablet 5 Mg PO DAILY 05/06/17 Reported Nephro-Donovan Tablet (Folic Acid/Vitamin B Comp W-C) 0.8 Mg Tablet 0.8 Mg PO DAILY 12/20/16 Reported Sensipar (Cinacalcet Hcl) 30 Mg Tablet 30 Mg PO DAILY 12/20/16 Reported Low Dose Aspirin Ec (Aspirin) 81 Mg Tablet.dr 1 Tab PO DAILY 03/09/14 Reported Midodrine Hcl 5 Mg Tablet 5 Mg PO PRN PRN 03/09/14 Reported Levothyroxine Sodium 50 Mcg Tablet 50 Mcg PO DAILY 03/09/14 Reported Ranitidine Hcl 300 Mg Capsule 300 Mg PO BID 03/09/14 Reported Impression . 1. Acute respiratory failure secondary to combined metabolic and respiratory acidosis, pleural effusion----improved 2. Encephalopathy, contributed by hypercapnia. Hypothyroidism may have contributed in that as well ---resolved 3. Abnormal chest x-ray consistent with congestive heart failure with vascular markings been prominent and right lower lobe effusion along with cardiomegaly. 4. Morbid obesity needs to be ruled out for sleep apnea as an outpatient. I would recommend doing a sleep study. 5. Hypothyroidism with an elevated TSH level 6. Gram positive rods in blood Plan . FOLLOW NEPHRO AVOID SEDATION ON AC ANTI BX PER RANDALL RODRIGUEZ MD Apr 21, 2019 09:33
[2019-04-21] MEDS: TOPIRAMATE 25 MG TABLET. PO SCH (10:10)
[2019-04-21 10:11] VITALS: BP 75/33
--- NOTE | 2019-04-21 12:54 | PDOC ---
PROGRESS NOTES Subjective She was asleep this am and not arousable when I rounded which was suprise finding, nursing did not give her anything to make her drowsy, has EEG planned, off antibiotics, weak, and having PT,OT assess her today but may need SNU, tremor was better with Topiramate, she was alert earlier this am, fluid from lung is transudate, no sign of infection, lactobacillus grew from blood cx, calcium low Objective Afebrile General: drowsy Heart: RRR Lungs: clear Abd: soft Ext: no edema Vital Signs Vital Signs Date Time Temp Pulse Resp B/P (MAP) Pulse Ox O2 Delivery O2 Flow Rate FiO2 04/21/19 10:11 98.1 80 18 75/33 (47) Nasal Cannula 2.0 98.1 04/21/19 08:23 100 I & O Intake and Output 04/21/19 06:59 Intake Total 486 ml Balance 486 ml Intake Oral 336 ml IV Total 150 ml Assessment and Plan acute hypercapnic respiratory failure - pulm following - needed Bipap initially encephalopathy, likely toxic and metabolic - continue to hold home dose of pain and anxiolytic meds, EEG today suspected aspiration pneumonia - pulm and ID consults, she has completer 1 weeks of IV abx - lactobacillus on blood cx sphenoid sinusitis per imaging - ID consult 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 Bradycardia - HR better- checked EKG & troponin which were unremarkable, Cardiol ogy consult, continue tele right pleural effusion - thoracentesis done 04/19 with 950 cc removed - transudate, resumed warfarin after holding it 3 days prior coagulopathy - resume subQ heparin until INR therapeutic HTN - overtreated - Norvasc stopped - monitoring anemia of chronic renal disease - Aranesp hematuria - monitor, not recurred bacteremia - / bottles, lactobacillus per C&S - ID following and now completed IV abx tremor - essential type- Neuro consult, start low dose topiramate and titrate debility - now needing Dominique lift - PT/OT and SNU eval hypocalcemia - replace with IV calcium gluconate, check phosphorus and magnesium levels also Joanne HUFF MD Apr 21, 2019 12:54
[2019-04-21] MEDS ORDERED: CALCIUM GLUCONATE 1,000 MG in IV DEXTROSE 5% 100ML 100 ML IV ONE (13:00)
[2019-04-21 13:06] LABS: MAGNESIUM 2.1 mg/dL (1.8-2.4)
--- NOTE | 2019-04-21 13:49 | PDOC ---
Renal-Progress Notes Subjective Notes Notes SOMNOLENT History of Present Illness Hx of present illness NO CHANGE Vitals Vitals Vital Signs Date Time Temp Pulse Resp B/P (MAP) Pulse Ox O2 Delivery O2 Flow Rate FiO2 04/21/19 13:12 80 75/33 04/21/19 10:11 98.1 18 Nasal Cannula 2.0 98.1 04/21/19 08:23 100 Weight Weight [ ] I.O. Intake and Output Intake and Output 04/21/19 07:00 Intake Total 486 ml Balance 486 ml Intake Oral 336 ml IV Total 150 ml Labs Labs Laboratory Tests Test 04/20/19 16:54 04/20/19 20:54 04/21/19 04:25 04/21/19 07:25 Glucose (Fingerstick) 80 mg/dL (70-99) 118 mg/dL (70-99) 71 mg/dL (70-99) White Blood Count 4.2 x10^3/uL (4.0-11.0) Red Blood Count 2.91 x10^6/uL (3.50-5.40) Hemoglobin 9.7 g/dL (12.0-15.5) Hematocrit 30.8 % (36.0-47.0) Mean Corpuscular Volume 106 fL (79-100) Mean Corpuscular Hemoglobin 33 pg (25-35) Mean Corpuscular Hemoglobin Concent 32 g/dL (31-37) Red Cell Distribution Width 16.1 % (11.5-14.5) Platelet Count 110 x10^3/uL (140-400) Neutrophils (%) (Auto) 51 % (31-73) Lymphocytes (%) (Auto) 37 % (24-48) Monocytes (%) (Auto) 9 % (0-9) Eosinophils (%) (Auto) 2 % (0-3) Basophils (%) (Auto) 1 % (0-3) Neutrophils # (Auto) 2.1 x10^3/uL (1.8-7.7) Lymphocytes # (Auto) 1.5 x10^3/uL (1.0-4.8) Monocytes # (Auto) 0.4 x10^3/uL (0.0-1.1) Eosinophils # (Auto) 0.1 x10^3/uL (0.0-0.7) Basophils # (Auto) 0.0 x10^3/uL (0.0-0.2) Prothrombin Time 16.0 SEC (11.7-14.0) Prothromb Time International Ratio 1.3 (0.8-1.1) Sodium Level 140 mmol/L (136-145) Potassium Level 4.3 mmol/L (3.5-5.1) Chloride Level 103 mmol/L (98-107) Carbon Dioxide Level 31 mmol/L (21-32) Anion Gap 6 (6-14) Blood Urea Nitrogen 20 mg/dL (7-20) Creatinine 5.0 mg/dL (0.6-1.0) Estimated GFR (Cockcroft-Gault) 10.2 Glucose Level 96 mg/dL (70-99) Calcium Level 7.7 mg/dL (8.5-10.1) Phosphorus Level 3.0 mg/dL (2.6-4.7) Magnesium Level 2.1 mg/dL (1.8-2.4) Micro Micro Microbiology 04/19/19 Anaerobic/Aerobic Culture, Resulted Pending 04/19/19 Anaerobic Culture Result 1 (BLACK), Resulted Pending 04/19/19 Aerobic Culture - Preliminary, Resulted 04/19/19 Aerobic Culture Result 1 (BLACK) - Preliminary, Resulted 04/19/19 Gram Stain - Final, Resulted 04/19/19 Gram Stain Result 1 (BLACK) - Final, Resulted 04/19/19 Gram Stain Result 2 (BLACK) - Final, Resulted 04/14/19 Blood Culture - Final, Complete NO GROWTH AFTER 5 DAYS Review of Systems Constitutional: yes: other (CONFUSED) Physical Exam General Appearance: no apparent distress Skin: warm Respiratory: decreased breath sounds Heart: S1S2 Abdomen: soft, bowel sounds present Extremities: pulses present Neurology: alert Musculoskeletal: Osteoarthritis Assessment Assessment IMP ESRD ANEMIA MET ENCEPHALOPATHY OBESITY HYPOTENSION HTN NOW RIGHT SIDE PLEURAL EFFUSION S/P THORACENTESIS SOMNOLENCE ? HYPERCARBIA PLAN FLUID BOLUS NEEDED CONT MIDODRINE CONSIDER CHECKING PCO2 HD TTS CONT REECE MARTINEZ MD Apr 21, 2019 13:49
[2019-04-21] MEDS ORDERED: IV NORMAL SALINE 250ML 250 ML IV ONE (14:00)
--- NOTE | 2019-04-21 14:20 | EEG ---
DATE OF SERVICE: 04/21/2019 EEG NUMBER [id number] OBJECTIVE: This is a 73-year-old female patient with history of abnormal movements for several months. EEG was requested to evaluate the cerebral activity. METHODS: Twenty electrodes were applied according to the international 10-20 electrode placement system. EKG monitoring, hyperventilation, intermittent photic stimulation, monopolar and bipolar montages are routinely utilized. The record was obtained on a digital system with video monitoring. FINDINGS: 1. Background: The patient was recorded in the awake, drowsy, and sleep states. The overall background amplitude is 10-20 microvolts. A posterior dominant rhythm of 7-8 Hz is observed with superimposed slowing in the theta and delta frequencies. 2. Abnormalities: No specific epileptiform discharge or electrographic seizure is seen. Slow activity in the theta and delta frequencies noted. 3. Activation: Hyperventilation was not performed because the patient did not follow the commands. Intermittent photic stimulation was performed with photic driving. IMPRESSION: This EEG falls into the abnormal category of study for the awake, drowsy, and sleep states. The posterior dominant rhythm of 7-8 Hz is slow for age. There is superimposed slowing in the theta and delta frequencies. No focal, lateralizing, specific epileptiform discharge or electrographic seizure is seen. This pattern of EEG may suggest encephalopathy. OLIVIA NARANJO MD DR: CRUZ/jen JOB#: [id number] / [id number] ZENA
[2019-04-21 14:27] VITALS: BP 102/40
--- NOTE | 2019-04-21 15:38 | PDOC ---
PROGRESS NOTES Assessment Assessment Essential tremor. Generalized weakness. Hypocalcemia, Ca++ 7.6 Right LL infiltrate. Pulmonary effusion, R > L. Renal failure on dialysis. Cardiomegaly. CAD. DM. HTN. HLD. Hypothyroidism, TSH 10.97 Uterine cancer. Obesity. RECOMMENDATIONS/PLAN: Topamax 25 mg daily with titration up. Continue Neurontin 300 mg HS, may increase dose (though renal failure concern). Beta-Lizet not given due to hypotension. Treat medical diseases. OT/PT. HISTORY OF THE PRESENT ILLNESS: This is a 73-year-old female patient with above medical diseases was brought to the ER of [facility] due to weakness and grogginess after dialysis. Neurology was requested for consultation on 04/20/19 for tremors. She stated she has been having tremors in her hands for about 6 months and her tremors seemed became worse. She stated her LE were not affected. No stiffness. 04/21/19: No tremors during sleeping. Past Medical History Cardiovascular: HTN, Other Pulmonary: Asthma GI: GERD Heme/Onc: Anemia NOS, Cancer Psych: Anxiety Renal/: Chronic renal failure Endocrine: Diabetes, Hypothyroidism Past Surgical History Tonsillectomy, Hysterectomy Family History Hypertension, Kidney Disease ALLERGY: NKDA MEDICATIONS: Refer to MAR SOCIAL HISTORY: Lives alone. Lives in residential. Denies current smoking, drinking, and illicit drug use. REVIEW OF SYSTEMS: Constitutional: Obese. Head: No traumatic brain or head injury. Skin: No edema, or rash. Ear: No infection, tinnitus. Eyes: No vision loss or color blindness. Nose: No bleeding or purulent discharges. Hearing: Mild hearing decrease. Neck: No injury. Breast: No history of cancer, masses,or discharges. Cardiac: CAD, HTN, HLD. Pulmonary: Pneumonia. GI: No GI ulcer, GI bleeding. Urinary/genital: Renal failure on dialysis. Endocrinologic: Diabetes Mellitus, obesity. Skeletomuscular: Generalized weakness. Neurological: see HP. Psychiatric: Denies drug use/abuse. Otherwise, not -praib review of systems. PHYSICAL EXAMINATION: General appearance is in subacute distress. HEENT: Normocephalic and nontraumatic. Eyes, nose, ears, and throat are unremarkable. Neck is supple. No lymphadenopathy. No crepitus. Cardiovascular: S1, S2, regular rate and rhythm. Pulmonary: Decreased to auscultation bilaterally. Abdomen: Bowel sounds are positive. Extremities: No rash, lesions, or edema. No restriction of range of motion NEUROLOGICAL EXAMINATION: Drowsiness. Not fully oriented to time, place and person. PERRL. EOMI. CN: no focal findings. Muscle tone: within normal. Muscle strength: 4 DTR: 1 Plantar reflex: Neutral response bilaterally Gait: not examined in bed. Sensory exam: no abnormal findings. No cerebellar signs elicited. Objective Objective Vital Signs Date Time Temp Pulse Resp B/P (MAP) Pulse Ox O2 Delivery O2 Flow Rate FiO2 04/21/19 14:27 98.4 54 18 102/40 (60) 87 Nasal Cannula 2.0 98.4 Intake and Output 04/21/19 07:00 Intake Total 486 ml Balance 486 ml Intake Oral 336 ml IV Total 150 ml Vitals Signs Vitals VS - Last 72 Hours, by Label Date Time Temp Pulse Resp B/P (MAP) Pulse Ox O2 Delivery O2 Flow Rate FiO2 04/21/19 14:27 98.4 54 18 102/40 (60) 87 Nasal Cannula 2.0 98.4 04/21/19 13:12 80 75/33 04/21/19 10:11 98.1 80 18 75/33 (47) Nasal Cannula 2.0 98.1 04/21/19 08:23 100 Nasal Cannula 2.0 04/21/19 08:00 Room Air 04/21/19 07:12 98.3 81 18 102/46 (64) 99 Nasal Cannula 2.0 98.3 04/21/19 03:49 59 83/28 04/21/19 03:40 98.7 75 18 90/32 (51) 98 Nasal Cannula 2.0 98.7 04/20/19 23:00 98.6 73 20 93/36 (55) 100 Nasal Cannula 2.0 98.6 04/20/19 20:43 97 Nasal Cannula 2.0 04/20/19 20:00 Nasal Cannula 1.0 04/20/19 19:40 98.3 57 20 123/50 (74) 91 Nasal Cannula 2.0 98.3 04/20/19 17:34 75 91/42 04/20/19 12:27 75 91/42 04/20/19 11:00 98.5 75 16 91/42 (58) 96 Nasal Cannula 2.0 98.5 04/20/19 08:22 97 Nasal Cannula 2.0 04/20/19 08:00 Room Air 04/20/19 07:00 98.6 73 20 103/38 (59) 95 Nasal Cannula 2.0 98.6 Laboratory Laboratory Laboratory Tests Test 04/20/19 16:54 04/20/19 20:54 04/21/19 04:25 04/21/19 07:25 Glucose (Fingerstick) 80 mg/dL (70-99) 118 mg/dL (70-99) 71 mg/dL (70-99) White Blood Count 4.2 x10^3/uL (4.0-11.0) Red Blood Count 2.91 x10^6/uL (3.50-5.40) Hemoglobin 9.7 g/dL (12.0-15.5) Hematocrit 30.8 % (36.0-47.0) Mean Corpuscular Volume 106 fL (79-100) Mean Corpuscular Hemoglobin 33 pg (25-35) Mean Corpuscular Hemoglobin Concent 32 g/dL (31-37) Red Cell Distribution Width 16.1 % (11.5-14.5) Platelet Count 110 x10^3/uL (140-400) Neutrophils (%) (Auto) 51 % (31-73) Lymphocytes (%) (Auto) 37 % (24-48) Monocytes (%) (Auto) 9 % (0-9) Eosinophils (%) (Auto) 2 % (0-3) Basophils (%) (Auto) 1 % (0-3) Neutrophils # (Auto) 2.1 x10^3/uL (1.8-7.7) Lymphocytes # (Auto) 1.5 x10^3/uL (1.0-4.8) Monocytes # (Auto) 0.4 x10^3/uL (0.0-1.1) Eosinophils # (Auto) 0.1 x10^3/uL (0.0-0.7) Basophils # (Auto) 0.0 x10^3/uL (0.0-0.2) Prothrombin Time 16.0 SEC (11.7-14.0) Prothromb Time International Ratio 1.3 (0.8-1.1) Sodium Level 140 mmol/L (136-145) Potassium Level 4.3 mmol/L (3.5-5.1) Chloride Level 103 mmol/L (98-107) Carbon Dioxide Level 31 mmol/L (21-32) Anion Gap 6 (6-14) Blood Urea Nitrogen 20 mg/dL (7-20) Creatinine 5.0 mg/dL (0.6-1.0) Estimated GFR (Cockcroft-Gault) 10.2 Glucose Level 96 mg/dL (70-99) Calcium Level 7.7 mg/dL (8.5-10.1) Phosphorus Level 3.0 mg/dL (2.6-4.7) Magnesium Level 2.1 mg/dL (1.8-2.4) Microbiology 04/19/19 Anaerobic/Aerobic Culture, Resulted Pending 04/19/19 Anaerobic Culture Result 1 (BLACK), Resulted Pending 04/19/19 Aerobic Culture - Preliminary, Resulted 04/19/19 Aerobic Culture Result 1 (BLACK) - Preliminary, Resulted 04/19/19 Gram Stain - Final, Resulted 04/19/19 Gram Stain Result 1 (BLACK) - Final, Resulted 04/19/19 Gram Stain Result 2 (BLACK) - Final, Resulted 04/14/19 Blood Culture - Final, Complete NO GROWTH AFTER 5 DAYS Medication Medications Current Medications Calcium Gluconate 1000 mg/Dextrose 110 ml @ 220 mls/hr 1X ONCE IV Last administered on 04/21/19at 13:19; Start 04/21/19 at 13:00; Stop 04/21/19 at 13:29; Status DC Sodium Chloride 250 ml @ 250 mls/hr 1X ONCE IV Last administered on 04/21/19at 14:16; Start 04/21/19 at 14:00; Stop 04/21/19 at 14:59; Status DC Topiramate (Topamax) 25 mg DAILY PO Last administered on 04/21/19at 10:10; Start 04/20/19 at 17:00 Vancomycin HCl 500 mg/Sodium Chloride 100 ml @ 100 mls/hr QTUTHSA IV Last administered on 04/20/19at 18:22; Start 04/20/19 at 16:00; Stop 04/21/19 at 07:10; Status DC Warfarin Sodium (Coumadin) 7.5 mg 1X WARF ONCE PO Last administered on 04/20/19at 17:25; Start 10/8/19 at 16:00; Stop 04/20/19 at 16:01; Status DC Warfarin Sodium (Coumadin) 7.5 mg 1X WARF ONCE PO ; Start 04/21/19 at 16:00; Stop 04/21/19 at 16:01 Comment Review of Relevant I have reviewed the following items gloria (where applicable) has been applied. OLIVIA NARANJO MD Apr 21, 2019 15:38
[2019-04-21] MEDS ORDERED: WARFARIN 7.5 MG TABLET. PO ONE (16:00)
--- NOTE | 2019-04-21 16:21 | NUR ---
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 Target range for this patient is: 2 -3 P: Warfarin dose: 7.5 mg Today at 1600 Bridge Therapy: Heparin q8h Next INR due IN AM Pharmacy anticoagulation service will continue to follow. MARYCRUZ [facility], 04/21/19 [id number]
[2019-04-21 19:00] VITALS: BP 120/47
[2019-04-21] MEDS: GABAPENTIN 300 MG CAPSULE. PO SCH (20:55)
[2019-04-21 23:00] VITALS: BP 117/49
[2019-04-22 03:00] VITALS: BP 97/37
[2019-04-22] MEDS: LEVOTHYROXINE 100 MCG TABLET PO SCH (05:51)
[2019-04-22] MEDS: HEPARIN for SUB-Q USE 5,000 UNIT/ML VIAL. SQ SCH ×3 (05:56→21:50)
[2019-04-22] MEDS: MIDODRINE 5 MG TABLET PO SCH ×3 (06:00→17:35)
[2019-04-22 07:00] VITALS: BP 95/44
[2019-04-22] MEDS ORDERED: IV NORMAL SALINE 1000ML BAG 1,000 ML IV PRN ×2 (07:11)
[2019-04-22] MEDS ORDERED: ALBUMIN HUMAN 25% 200 ML IV PRN (07:15)
[2019-04-22] MEDS ORDERED: DIALYSIS PATIENT. MC PRN ×2 (07:15)
[2019-04-22] MEDS: ALBUTEROL SULFATE 2.5 MG/3 ML NEBU. NEB SCH ×2 (08:00→20:02)
[2019-04-22] MEDS: SEVELAMER CARBONATE 800 MG TABLET. PO SCH ×3 (08:00→17:35)
--- NOTE | 2019-04-22 09:01 | NUR ---
Patient left the unit at approx 0730 for dialysis.
--- NOTE | 2019-04-22 09:22 | PDOC ---
PULMONARY PROGRESS NOTES Subjective NO NEW COMPLAINTS SLEEPY BUT ANSWERS QUESTIONS PT NOT MORE SOA FEELS BETTER s/p right thoracentesis , 950 cc removed Vitals Vital Signs Date Time Temp Pulse Resp B/P (MAP) Pulse Ox O2 Delivery O2 Flow Rate FiO2 04/22/19 07:00 98.1 59 16 95/44 (61) 99 Nasal Cannula 2.0 98.1 ROS: No Nausea, No Chest Pain, No Abdominal Pain, No Increase Cough General: Alert, No acute distress Lungs: Other (decrease bases) Cardiovascular: S1 Abdomen: Soft, Other (obese) Extremities: Other (1+edema) Labs Laboratory Tests Test 04/20/19 10:51 04/20/19 16:54 04/20/19 20:54 04/21/19 04:25 Glucose (Fingerstick) 100 mg/dL (70-99) 80 mg/dL (70-99) 118 mg/dL (70-99) White Blood Count 4.2 x10^3/uL (4.0-11.0) Red Blood Count 2.91 x10^6/uL (3.50-5.40) Hemoglobin 9.7 g/dL (12.0-15.5) Hematocrit 30.8 % (36.0-47.0) Mean Corpuscular Volume 106 fL (79-100) Mean Corpuscular Hemoglobin 33 pg (25-35) Mean Corpuscular Hemoglobin Concent 32 g/dL (31-37) Red Cell Distribution Width 16.1 % (11.5-14.5) Platelet Count 110 x10^3/uL (140-400) Neutrophils (%) (Auto) 51 % (31-73) Lymphocytes (%) (Auto) 37 % (24-48) Monocytes (%) (Auto) 9 % (0-9) Eosinophils (%) (Auto) 2 % (0-3) Basophils (%) (Auto) 1 % (0-3) Neutrophils # (Auto) 2.1 x10^3/uL (1.8-7.7) Lymphocytes # (Auto) 1.5 x10^3/uL (1.0-4.8) Monocytes # (Auto) 0.4 x10^3/uL (0.0-1.1) Eosinophils # (Auto) 0.1 x10^3/uL (0.0-0.7) Basophils # (Auto) 0.0 x10^3/uL (0.0-0.2) Prothrombin Time 16.0 SEC (11.7-14.0) Prothromb Time International Ratio 1.3 (0.8-1.1) Sodium Level 140 mmol/L (136-145) Potassium Level 4.3 mmol/L (3.5-5.1) Chloride Level 103 mmol/L (98-107) Carbon Dioxide Level 31 mmol/L (21-32) Anion Gap 6 (6-14) Blood Urea Nitrogen 20 mg/dL (7-20) Creatinine 5.0 mg/dL (0.6-1.0) Estimated GFR (Cockcroft-Gault) 10.2 Glucose Level 96 mg/dL (70-99) Calcium Level 7.7 mg/dL (8.5-10.1) Phosphorus Level 3.0 mg/dL (2.6-4.7) Magnesium Level 2.1 mg/dL (1.8-2.4) Test 04/21/19 07:25 04/21/19 21:15 04/22/19 07:20 Glucose (Fingerstick) 71 mg/dL (70-99) 89 mg/dL (70-99) 80 mg/dL (70-99) Laboratory Tests Test 04/21/19 21:15 04/22/19 07:20 Glucose (Fingerstick) 89 mg/dL (70-99) 80 mg/dL (70-99) Medications Active Scripts Medications Dose Route/Sig Max Daily Dose Days Date Category Gabapentin 300 Mg Capsule 300 Mg PO QHS 30 01/25/19 Rx Coumadin (Warfarin Sodium) 7.5 Mg Tablet 1 Tab PO DAILY 03/13/18 Reported Hydrocodone-Apap 7.5-325 (Hydrocodone Bit/Acetaminophen) 1 Each Tablet 1 Tab PO BID PRN 05/06/17 Reported Fluticasone Propionate Nasal [place] (Fluticasone Propionate) 16 Gm [place].susp 2 [place] NS DAILY 05/06/17 Reported Renvela (Sevelamer Carbonate) 800 Mg Tablet 800 Mg PO TIDWMEALS 05/06/17 Reported Ibuprofen 800 Mg Tablet 800 Mg PO PRN Q6HRS PRN 05/06/17 Reported Vitamin D3 (Cholecalciferol (Vitamin D3)) 2,000 Unit Tab.chew 1,000 Unit PO 05/06/17 Reported Ventolin Hfa Inhaler (Albuterol Sulfate) 18 Gm Hfa.aer.ad 2 Puff INH BID 05/06/17 Reported Amlodipine Besylate 5 Mg Tablet 5 Mg PO DAILY 05/06/17 Reported Nephro-Donovan Tablet (Folic Acid/Vitamin B Comp W-C) 0.8 Mg Tablet 0.8 Mg PO DAILY 12/20/16 Reported Sensipar (Cinacalcet Hcl) 30 Mg Tablet 30 Mg PO DAILY 12/20/16 Reported Low Dose Aspirin Ec (Aspirin) 81 Mg Tablet.dr 1 Tab PO DAILY 03/09/14 Reported Midodrine Hcl 5 Mg Tablet 5 Mg PO PRN PRN 03/09/14 Reported Levothyroxine Sodium 50 Mcg Tablet 50 Mcg PO DAILY 03/09/14 Reported Ranitidine Hcl 300 Mg Capsule 300 Mg PO BID 03/09/14 Reported Impression . 1. Acute respiratory failure secondary to combined metabolic and respiratory acidosis, pleural effusion----improved 2. Encephalopathy, contributed by hypercapnia. Hypothyroidism may have contributed in that as well ---resolved 3. Abnormal chest x-ray consistent with congestive heart failure with vascular markings been prominent and right lower lobe effusion along with cardiomegaly. 4. Morbid obesity needs to be ruled out for sleep apnea as an outpatient. I would recommend doing a sleep study. 5. Hypothyroidism with an elevated TSH level 6. BACTEREMIA BC FINAL BLOOD CULTURE Final Preliminary report Final report BLD CULT RESULT 1 Final Lactobacillus species Performed at: [address], [place], [place] [id number] [employer]ward[employer]Ste[employer]: FLASH Mcdaniels MD, Phone: [phone] PENICILLIN 0.125 =S GENTAMICIN 4.0 =S Performed at: [address], [place], [place] [id number] [employer]ward[employer]Stewardess [employer]: FLASH Mcdaniels MD, Phone: [phone] Plan . FOLLOW NEPHRO AVOID SEDATION ON AC ANTI BX PER ID FINSHED COURSE MAY TRANSFER OR D/C FROM MY [facility] RANDALL SNIDER MD Apr 22, 2019 09:22
[2019-04-22 09:31] LABS: BASO % 1 % (0-3); EOS # 0.1 x10^3/uL (0.0-0.7); EOS % 3 % (0-3); HEMATOCRIT 31.3 % (36.0-47.0); HEMOGLOBIN 9.9 g/dL (12.0-15.5); LYMPH # 1.4 x10^3/uL (1.0-4.8); LYMPH % 34 % (24-48); MEAN CORPUSCULAR HEMOGLOBIN 34 pg (25-35); MEAN CORPUSCULAR HGB CONC 32 g/dL (31-37); MEAN CORPUSCULAR VOLUME 106 fL (79-100); MONO # 0.3 x10^3/uL (0.0-1.1); MONO % 8 % (0-9); NEUT # 2.2 x10^3/uL (1.8-7.7); NEUT % 55 % (31-73); PLATELET COUNT 109 x10^3/uL (140-400); RED BLOOD COUNT 2.95 x10^6/uL (3.50-5.40); WHITE BLOOD COUNT 4.1 x10^3/uL (4.0-11.0)
[2019-04-22 09:39] LABS: PROTHROMBIN TIME PATIENT 15.9 SEC (11.7-14.0)
--- NOTE | 2019-04-22 09:50 | PDOC ---
SUBJECTIVE ROS Stable , seen on HD OBJECTIVE Vital Signs Vital Signs Date Time Temp Pulse Resp B/P (MAP) Pulse Ox O2 Delivery O2 Flow Rate FiO2 04/22/19 07:00 98.1 59 16 95/44 (61) 99 Nasal Cannula 2.0 98.1 I & 0 Intake and Output 04/22/19 07:00 Intake Total 696 ml Output Total 300 ml Balance 396 ml Intake Oral 336 ml IV Total 360 ml Output Urine Total 300 ml PHYSICAL EXAM Physical Exam GENERAL: NAD HEENT:Oropharynx pink and moist. NECK: Supple. LUNGS: Clear to auscultation. HEART: S1, S2. ABDOMEN: Obese, soft, a EXTREMITIES: No gross edema . LUE-AVF SKIN: No rash. NEUROLOGIC: Awake and answering questions appropriately. UNIQUE Bonds DIAGNOSIS/ASSESSMENT Assessment & Plan ESRD - On HD TTS Seen on HD, tolerating well , continue as ordered , Truman Pelletier Access- Had thrombosed left upper extremity HERO recently S/P Left upper extremity fistulogram, [employer] mechanical thrombolysis thromb osed Hero graft.,Angioplasty of outflow vein stenosis on 04/01 dialysis graft DM- per primary Anemia - On FRED RLL infiltrate and pleural effusion - s/p Thoracentesis Sinus disease on CT Hypotension - On Midodrine Morbid Obesity COMMENT/RELEVANT DATA Meds Current Medications Medications (Trade) Dose Ordered Sig/Kenney Start Time Stop Time Status Last Admin Dose Admin Acetaminophen (Tylenol) 500 mg 1X PRN PRN 04/17/19 07:15 04/18/19 07:14 DC Al Hydroxide/Mg Hydroxide (Mylanta Plus Xs) 30 ml PRN DAILY PRN 04/14/19 15:45 Albumin Human 200 ml @ 200 mls/hr 1X PRN PRN 04/22/19 07:15 04/22/19 13:14 Albuterol Sulfate (Ventolin Neb Soln) 2.5 mg RTBID 04/14/19 20:00 04/21/19 19:53 2.5 MG Amlodipine Besylate (Norvasc) 5 mg DAILY 04/14/19 17:30 04/17/19 10:28 DC 04/16/19 11:42 5 MG Amoxicillin/ Clavulanate Potassium (Augmentin 500/ 125mg) 1 tab DAILY 04/16/19 14:45 04/16/19 15:23 DC Aspirin (Ecotrin) 81 mg DAILY 04/14/19 17:30 04/21/19 08:50 81 MG Calcium Gluconate 1000 mg/Dextrose 110 ml @ 220 mls/hr 1X ONCE 04/21/19 13:00 04/21/19 13:29 DC 04/21/19 13:19 220 MLS/HR Cinacalcet (Sensipar) 30 mg DAILY 04/14/19 17:30 04/21/19 08:50 30 MG Clonidine HCl (Catapres) 0.1 mg PRN Q6HRS PRN 04/14/19 15:45 Darbepoetin Andriy (ARANESP for DIALYSIS PTS) 60 mcg Sa 04/17/19 21:00 04/17/19 21:13 60 MCG Dextrose (Dextrose 50%-Water Syringe) 12.5 gm PRN Q15MIN PRN 04/14/19 17:15 04/15/19 14:10 12.5 GM Diphenhydramine HCl (Benadryl) 25 mg 1X PRN PRN 04/15/19 07:45 04/16/19 07:44 DC Docusate Sodium (Colace) 100 mg PRN BID PRN 04/14/19 15:45 04/19/19 12:39 100 MG Enoxaparin Sodium (Lovenox 40mg Syringe) 40 mg Q24H 04/14/19 18:00 Cancel Famotidine (Pepcid) 20 mg Q48H 04/14/19 21:00 04/20/19 20:59 20 MG Fluticasone Propionate (Flonase) 2 spray DAILY 04/14/19 17:30 04/21/19 08:51 2 SPRAY Gabapentin (Neurontin) 300 mg QHS 04/14/19 21:00 04/21/19 20:55 300 MG Heparin Sodium (Porcine) (Heparin Sodium) 5,000 unit Q8HRS 04/20/19 14:00 04/22/19 05:56 5,000 UNIT Info (PHARMACY MONITORING -- do not chart) 1 each PRN DAILY PRN 04/22/19 07:15 Lactobacillus Rhamnosus (Culturelle) 1 cap BID 04/16/19 21:00 04/21/19 20:55 1 CAP Levofloxacin/ Dextrose 100 ml @ 100 mls/hr Q48H 04/16/19 14:00 Cancel Levofloxacin/ Dextrose (Levaquin Per Pharmacy) 1 each PRN DAILY PRN 04/14/19 13:15 04/14/19 15:43 DC Levothyroxine Sodium (Synthroid) 100 mcg DAILY06 04/15/19 09:00 04/22/19 05:51 100 MCG Lidocaine HCl (Xylocaine-Mpf 1% 2ml Vial) 2 ml 1X ONCE 04/20/19 12:45 04/20/19 12:48 DC 04/20/19 13:02 2 ML Midodrine (Proamatine) 5 mg [id number] 04/14/19 18:00 04/22/19 06:00 5 MG Phytonadione (Vitamin K Ampule) 10 mg 1X ONCE 04/18/19 10:00 04/18/19 15:10 DC 04/18/19 11:50 10 MG Phytonadione 10 mg/Dextrose 51 ml @ 102 mls/hr 1X ONCE 04/18/19 13:45 04/18/19 15:10 DC Piperacillin Sod/ Tazobactam Sod (Zosyn Per Pharmacy) 1 each PRN DAILY PRN 04/15/19 10:30 04/16/19 14:44 DC Piperacillin Sod/ Tazobactam Sod 2.25 gm/Sodium Chloride 50 ml @ 100 mls/hr Q8HRS 04/16/19 16:00 04/21/19 07:10 DC 04/21/19 05:02 100 MLS/HR Sevelamer Carbonate (Renvela) 800 mg TIDWMEALS 04/14/19 17:30 04/21/19 17:46 800 MG Sodium Bicarbonate (Sodium Bicarb Adult 8.4% Syr) 100 meq 1X ONCE 04/14/19 20:00 04/14/19 20:05 DC 04/14/19 20:09 100 MEQ Sodium Chloride 1,000 ml @ 400 mls/hr Q2H30M PRN 04/22/19 07:11 04/22/19 19:10 Topiramate (Topamax) 25 mg DAILY 04/20/19 17:00 04/21/19 10:10 25 MG Vancomycin HCl (Vanco Per Pharmacy) 1 each PRN DAILY PRN 04/16/19 15:30 04/21/19 07:10 DC 04/20/19 11:28 1 EACH Vancomycin HCl (Vancomycin Random Level) 1 each 1X ONCE 04/17/19 06:00 04/17/19 06:01 DC 04/17/19 06:00 1 EACH Vancomycin HCl 500 mg/Sodium Chloride 100 ml @ 100 mls/hr QTUTHSA 04/20/19 16:00 04/21/19 07:10 DC 04/20/19 18:22 100 MLS/HR Vancomycin HCl 1 gm/Sodium Chloride 250 ml @ 250 mls/hr 1X ONCE 04/17/19 15:00 04/17/19 15:59 DC 04/17/19 14:50 250 MLS/HR Vancomycin HCl 2 gm/Sodium Chloride 500 ml @ 250 mls/hr 1X ONCE 04/14/19 13:30 04/14/19 15:29 DC 04/14/19 18:29 250 MLS/HR Vitamin B Complex/ Vitamin C (Sandra-Donovan) 1 tab DAILY 04/14/19 17:30 04/21/19 08:50 1 TAB Warfarin Sodium (Coumadin Per Pharmacy) 1 each PRN DAILY PRN 04/19/19 16:00 04/21/19 08:03 1 EACH Warfarin Sodium (Coumadin) 7.5 mg 1X WARF ONCE 04/21/19 16:00 04/21/19 16:01 DC 04/21/19 17:48 7.5 MG Lab Laboratory Tests Test 04/21/19 21:15 04/22/19 07:20 04/22/19 08:55 Glucose (Fingerstick) 89 mg/dL (70-99) 80 mg/dL (70-99) White Blood Count 4.1 x10^3/uL (4.0-11.0) Red Blood Count 2.95 x10^6/uL (3.50-5.40) Hemoglobin 9.9 g/dL (12.0-15.5) Hematocrit 31.3 % (36.0-47.0) Mean Corpuscular Volume 106 fL (79-100) Mean Corpuscular Hemoglobin 34 pg (25-35) Mean Corpuscular Hemoglobin Concent 32 g/dL (31-37) Red Cell Distribution Width 16.0 % (11.5-14.5) Platelet Count 109 x10^3/uL (140-400) Neutrophils (%) (Auto) 55 % (31-73) Lymphocytes (%) (Auto) 34 % (24-48) Monocytes (%) (Auto) 8 % (0-9) Eosinophils (%) (Auto) 3 % (0-3) Basophils (%) (Auto) 1 % (0-3) Neutrophils # (Auto) 2.2 x10^3/uL (1.8-7.7) Lymphocytes # (Auto) 1.4 x10^3/uL (1.0-4.8) Monocytes # (Auto) 0.3 x10^3/uL (0.0-1.1) Eosinophils # (Auto) 0.1 x10^3/uL (0.0-0.7) Basophils # (Auto) 0.0 x10^3/uL (0.0-0.2) Results All relevant outside records, renal labs, imaging studies, telemetry/EKG's were reviewed. MARIO NOVOA MD Apr 22, 2019 09:50
[2019-04-22] MEDS: ACETAMINOPHEN 325 MG TABLET. PO PRN ×2 (09:51→16:57)
[2019-04-22 11:00] VITALS: BP 121/56
--- NOTE | 2019-04-22 12:00 | NUR ---
PATIENT RETURNED FROM DIALYSIS AT APPROX 1200
[2019-04-22] MEDS ORDERED: POLYETHYLENE GLYCOL 3350 17 GM PACKET. PO PRN (13:15)
--- NOTE | 2019-04-22 13:19 | NUR ---
pt just left floor at approx 1300 for mri. will give all meds when the pt returns.
--- NOTE | 2019-04-22 13:41 | NUR ---
SS following up with discharge planning. PT/OT requested to re-evaluate pt for snf unit as pt is gus lift for transfers. PT/OT currently on hold. Previous evaluations recommended home with home healthcare and pt was agreeable to [facility]. SS will await PT/OT re-evaluation and will continue to follow for discharge planning.
--- NOTE | 2019-04-22 14:09 | RAD ---
EXAM: Brain MRI without contrast. HISTORY: Mental status changes. TECHNIQUE: Multiplanar, multisequence magnetic resonance imaging of the brain was performed without contrast. COMPARISON: 04/14/2019 FINDINGS: There is no restricted diffusion to suggest acute or subacute infarction. There is no susceptibility effect to suggest hemorrhage. There is no mass effect or midline shift. There is no hydrocephalus. There are few nonspecific focal areas of T2/FLAIR hyperintensity within the cerebral white matter. There is mild cerebral volume loss. There is evidence of lens surgery. There is a small amount of mastoid fluid. There are normal flow voids within the cerebral vessels. There is a suspected empty or partially empty sella. IMPRESSION: 1. No acute intracranial finding. 2. Nonspecific focal areas of signal change within the cerebral white matter, most commonly due to chronic small vessel disease. 3. Cerebral volume loss. Electronically signed by: Loraine Tai MD (04/22/2019 2:06 PM) [id number]
--- NOTE | 2019-04-22 14:14 | PDOC ---
PROGRESS NOTES Assessment Assessment Metabolic encephalopathy. Essential tremor. Generalized weakness. Hypocalcemia, Ca++ 7.6 Right LL infiltrate. Pulmonary effusion, R > L. Renal failure on dialysis. Cardiomegaly. CAD. DM. HTN. HLD. Hypothyroidism, TSH 10.97 Uterine cancer. Obesity. RECOMMENDATIONS/PLAN: Topamax 25 mg daily with titration up. Continue Neurontin 300 mg HS, may increase dose (though renal failure concern). Beta-Lizet not given due to hypotension. Treat medical diseases. OT/PT. HISTORY OF THE PRESENT ILLNESS: This is a 73-year-old female patient with above medical diseases was brought to the ER of [facility] due to weakness and grogginess after dialysis. Neurology was requested for consultation on 04/20/19 for tremors. She stated she has been having tremors in her hands for about 6 months and her tremors seemed became worse. She stated her LE were not affected. No stiffness. 04/21/19: Call her daughter 3 to 4 times at [phone] to update her as she requested, and left messages within this number due to no answer. 04/22/19: No tremors observed. Past Medical History Cardiovascular: HTN, Other Pulmonary: Asthma GI: GERD Heme/Onc: Anemia NOS, Cancer Psych: Anxiety Renal/: Chronic renal failure Endocrine: Diabetes, Hypothyroidism Past Surgical History Tonsillectomy, Hysterectomy Family History Hypertension, Kidney Disease ALLERGY: NKDA MEDICATIONS: Refer to MAR SOCIAL HISTORY: Lives alone. Lives in jail. Denies current smoking, drinking, and illicit drug use. REVIEW OF SYSTEMS: Constitutional: Obese. Head: No traumatic brain or head injury. Skin: No edema, or rash. Ear: No infection, tinnitus. Eyes: No vision loss or color blindness. Nose: No bleeding or purulent discharges. Hearing: Mild hearing decrease. Neck: No injury. Breast: No history of cancer, masses,or discharges. Cardiac: CAD, HTN, HLD. Pulmonary: Pneumonia. GI: No GI ulcer, GI bleeding. Urinary/genital: Renal failure on dialysis. Endocrinologic: Diabetes Mellitus, obesity. Skeletomuscular: Generalized weakness. Neurological: see HP. Psychiatric: Denies drug use/abuse. Otherwise, not [id number] review of systems. PHYSICAL EXAMINATION: General appearance is in subacute on chronic distress. HEENT: Normocephalic and nontraumatic. Eyes, nose, ears, and throat are unremarkable. Neck is supple. No lymphadenopathy. No crepitus. Cardiovascular: S1, S2, regular rate and rhythm. Pulmonary: Decreased to auscultation bilaterally. Abdomen: Bowel sounds are positive. Extremities: No rash, lesions, or edema. No restriction of range of motion NEUROLOGICAL EXAMINATION: Drowsiness. Not fully oriented to time, place and person. PERRL. EOMI. CN: no focal findings. Muscle tone: within normal. Muscle strength: 4- DTR: 1 Plantar reflex: Neutral response bilaterally Gait: not examined in bed. Sensory exam: no abnormal findings. No cerebellar signs elicited. Objective Objective Vital Signs Date Time Temp Pulse Resp B/P (MAP) Pulse Ox O2 Delivery O2 Flow Rate FiO2 04/22/19 11:00 97.7 63 16 121/56 (77) 94 Nasal Cannula 2.0 97.7 Intake and Output 04/22/19 07:00 Intake Total 696 ml Output Total 300 ml Balance 396 ml Intake Oral 336 ml IV Total 360 ml Output Urine Total 300 ml Vitals Signs Vitals VS - Last 72 Hours, by Label Date Time Temp Pulse Resp B/P (MAP) Pulse Ox O2 Delivery O2 Flow Rate FiO2 04/22/19 11:00 97.7 63 16 121/56 (77) 94 Nasal Cannula 2.0 97.7 04/22/19 07:00 98.1 59 16 95/44 (61) 99 Nasal Cannula 2.0 98.1 04/22/19 06:00 70 95/44 04/22/19 03:00 98.1 59 16 97/37 (57) 94 Nasal Cannula 2.0 98.1 04/21/19 23:00 98.3 76 16 117/49 (71) 97 Nasal Cannula 2.0 98.3 04/21/19 20:00 Room Air 2.0 04/21/19 19:55 85 Room Air 04/21/19 19:00 98.8 81 16 120/47 (71) 85 Nasal Cannula 2.0 98.8 04/21/19 17:47 78 102/40 04/21/19 14:27 98.4 54 18 102/40 (60) 87 Nasal Cannula 2.0 98.4 04/21/19 13:12 80 75/33 04/21/19 10:11 98.1 80 18 75/33 (47) Nasal Cannula 2.0 98.1 04/21/19 08:23 100 Nasal Cannula 2.0 04/21/19 08:00 Room Air 04/21/19 07:12 98.3 81 18 102/46 (64) 99 Nasal Cannula 2.0 98.3 Laboratory Laboratory Laboratory Tests Test 04/21/19 21:15 04/22/19 07:20 04/22/19 08:55 04/22/19 12:06 Glucose (Fingerstick) 89 mg/dL (70-99) 80 mg/dL (70-99) 65 mg/dL (70-99) White Blood Count 4.1 x10^3/uL (4.0-11.0) Red Blood Count 2.95 x10^6/uL (3.50-5.40) Hemoglobin 9.9 g/dL (12.0-15.5) Hematocrit 31.3 % (36.0-47.0) Mean Corpuscular Volume 106 fL (79-100) Mean Corpuscular Hemoglobin 34 pg (25-35) Mean Corpuscular Hemoglobin Concent 32 g/dL (31-37) Red Cell Distribution Width 16.0 % (11.5-14.5) Platelet Count 109 x10^3/uL (140-400) Neutrophils (%) (Auto) 55 % (31-73) Lymphocytes (%) (Auto) 34 % (24-48) Monocytes (%) (Auto) 8 % (0-9) Eosinophils (%) (Auto) 3 % (0-3) Basophils (%) (Auto) 1 % (0-3) Neutrophils # (Auto) 2.2 x10^3/uL (1.8-7.7) Lymphocytes # (Auto) 1.4 x10^3/uL (1.0-4.8) Monocytes # (Auto) 0.3 x10^3/uL (0.0-1.1) Eosinophils # (Auto) 0.1 x10^3/uL (0.0-0.7) Basophils # (Auto) 0.0 x10^3/uL (0.0-0.2) Prothrombin Time 15.9 SEC (11.7-14.0) Prothromb Time International Ratio 1.3 (0.8-1.1) Microbiology 04/19/19 Anaerobic/Aerobic Culture, Resulted Pending 04/19/19 Anaerobic Culture Result 1 (BLACK), Resulted Pending 04/19/19 Aerobic Culture - Preliminary, Resulted 04/19/19 Aerobic Culture Result 1 (BLACK) - Preliminary, Resulted 04/19/19 Gram Stain - Final, Resulted 04/19/19 Gram Stain Result 1 (BLACK) - Final, Resulted 04/19/19 Gram Stain Result 2 (BLACK) - Final, Resulted 04/14/19 Blood Culture - Final, Complete NO GROWTH AFTER 5 DAYS Medication Medications Current Medications Albumin Human 200 ml @ 200 mls/hr 1X PRN PRN IV Hypotension; Start 04/22/19 at 07:15; Stop 04/22/19 at 13:14; Status DC Docusate Sodium (Colace) 100 mg DAILY PO ; Start 04/23/19 at 09:00 Info (PHARMACY MONITORING -- do not chart) 1 each PRN DAILY PRN MC SEE COMMENTS; Start 04/22/19 at 07:15 Info (PHARMACY MONITORING -- do not chart) 1 each PRN DAILY PRN MC SEE COMMENTS; Start 04/22/19 at 07:15; Status UNV Polyethylene Glycol (miraLAX PACKET) 17 gm PRN DAILY PRN PO CONSTIPATION; Start 04/22/19 at 13:15 Sodium Chloride 1,000 ml @ 400 mls/hr Q2H30M PRN IV PATENCY; Start 04/22/19 at 07:11; Stop 04/22/19 at 19:10 Sodium Chloride 1,000 ml @ 1,000 mls/hr Q1H PRN IV hypotension; Start 04/22/19 at 07:11; Stop 04/22/19 at 13:10; Status DC Warfarin Sodium (Coumadin) 7.5 mg 1X WARF ONCE PO Last administered on 04/21/19at 17:48; Start 04/21/19 at 16:00; Stop 04/21/19 at 16:01; Status DC Warfarin Sodium (Coumadin) 10 mg 1X WARF ONCE PO ; Start 04/22/19 at 16:00; Stop 04/22/19 at 16:01 Comment Review of Relevant I have reviewed the following items gloria (where applicable) has been applied. OLIVIA NARANJO MD Apr 22, 2019 14:14
[2019-04-22] MEDS: TOPIRAMATE 25 MG TABLET. PO SCH (14:17)
[2019-04-22] MEDS: DOCUSATE SODIUM 100 MG CAPSULE. PO SCH (14:17)
[2019-04-22] MEDS: ASPIRIN ENTERIC COATED 81 MG TABLET.DR. PO SCH (14:18)
[2019-04-22] MEDS: CINACALCET HCL 30 MG TABLET PO SCH (14:18)
[2019-04-22] MEDS: FOLIC/VIT B COMP W-C (RENAL) TABLET. PO SCH (14:18)
[2019-04-22] MEDS: LACTOBACILLUS RHAMNOSUS GG 1 CAPSULE. PO SCH ×2 (14:18→21:43)
[2019-04-22] MEDS: FLUTICASONE 50MCG/NASAL SPRAY 16GM BOTTLE. NS SCH (14:28)
[2019-04-22 15:00] VITALS: BP 145/60
--- NOTE | 2019-04-22 15:49 | NUR ---
Pharmacy Warfarin Dosing Note S:Pharmacy consulted to assist with anticoagulation therapy started with target INR: 2 -3 O:ROSE CAMPOS is a 73 year old F with DVT/PE LABS: Last INR: 1.3 Last HGB: 10.3 Last HCT: 32.7 Last PLT: 122 Last dose of 7.5 mg given on 04/21/19 at 1742 Previous Regimen: Vitamin K given: Y 04/18 Drug Interaction Changes: Ongoing Drug Interactions: levofloxacin A:INR of 1.3 is below desired range. Target range for this patient is: 2 -3 P: Warfarin dose: 10 mg Today at 1600 Bridge Therapy: Heparin q8h Next INR due IN AM Pharmacy anticoagulation service will continue to follow. MARYCRUZ MAY Shoaib, 04/22/19 0201
[2019-04-22] MEDS ORDERED: WARFARIN 5 MG TABLET. PO ONE (16:00)
--- NOTE | 2019-04-22 17:54 | PDOC ---
PROGRESS NOTES Subjective Dialyzed this am, EEG consistent with encephalopathy, Brain MRI with microvascular and aging related findings, she is still weak and needs assist to get out of bed, PT/OT have not been able to tx her recently for various reasons, hypoglycemic at lunch, INR still subtherapeutic at 1.3 Objective Afebrile General: alert but groggy, able to butter bread but using fingers to spread the butter Heart: RRR Lungs: CTA Abd: obese, soft Ext: no C/C/E BMP in process Vital Signs Vital Signs Date Time Temp Pulse Resp B/P (MAP) Pulse Ox O2 Delivery O2 Flow Rate FiO2 04/22/19 17:35 61 158/63 04/22/19 15:00 97.8 16 91 2.0 97.8 04/22/19 11:00 Nasal Cannula I & O Intake and Output 04/22/19 07:00 Intake Total 696 ml Output Total 300 ml Balance 396 ml Intake Oral 336 ml IV Total 360 ml Output Urine Total 300 ml Assessment and Plan acute hypercapnic respiratory failure - pulm following - needed Bipap initially encephalopathy, likely toxic and metabolic - continue to hold home dose of pain and anxiolytic meds, EEG today suspected aspiration pneumonia - pulm and ID consults, she has completer 1 weeks of IV abx - lactobacillus on blood cx sphenoid sinusitis per imaging - ID consult 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 Bradycardia - HR better- checked EKG & troponin which were unremarkable, Cardiology consult, continue tele right pleural effusion - thoracentesis done 04/19 with 950 cc removed - transudate, resumed warfarin after holding it 3 days prior coagulopathy - resume subQ heparin until INR therapeutic HTN - overtreated - Norvasc stopped - monitoring anemia of chronic renal disease - Aranesp hematuria - monitor, not recurred bacteremia - / bottles, lactobacillus per C&S - ID following and now completed IV abx tremor - essential type- Neuro consult, start low dose topiramate and titrate debility - now needing Dominique lift - PT/OT and SNU eval hypocalcemia - replace with IV calcium gluconate, check phosphorus and magnesium levels also Joanne HUFF MD Apr 22, 2019 17:53
[2019-04-22 19:24] VITALS: BP 102/44
[2019-04-22] MEDS: GABAPENTIN 300 MG CAPSULE. PO SCH (21:43)
[2019-04-22] MEDS: FAMOTIDINE 20 MG TABLET. PO SCH (21:44)
[2019-04-22 23:21] VITALS: BP 104/42
[2019-04-23] VITALS (7 sets, daily range): BP systolic 81–141; BP diastolic 36–53
[2019-04-23] MEDS: ACETAMINOPHEN 325 MG TABLET. PO PRN ×2 (02:01→10:49)
[2019-04-23 05:16] LABS: CREATININE 4.8 mg/dL (0.6-1.0); GFR 10.7; POTASSIUM 4.8 mmol/L (3.5-5.1)
[2019-04-23] MEDS: MIDODRINE 5 MG TABLET PO SCH ×3 (06:00→18:00)
[2019-04-23] MEDS: LEVOTHYROXINE 100 MCG TABLET PO SCH (06:00)
[2019-04-23] MEDS: HEPARIN for SUB-Q USE 5,000 UNIT/ML VIAL. SQ SCH ×3 (06:04→22:08)
[2019-04-23] MEDS: ALBUTEROL SULFATE 2.5 MG/3 ML NEBU. NEB SCH ×2 (08:44→20:20)
[2019-04-23] MEDS ORDERED: CLON0.1T12 PO (08:46)
[2019-04-23] MEDS ORDERED: TOPI25TA52 PO (08:46)
[2019-04-23] MEDS ORDERED: POLY17PO28 PO (08:46)
[2019-04-23 10:03] LABS: PROTHROMBIN TIME PATIENT 17.3 SEC (11.7-14.0)
--- NOTE | 2019-04-23 10:46 | PDOC ---
PULMONARY PROGRESS NOTES Subjective NO NEW COMPLAINTS SLEEPY BUT ANSWERS QUESTIONS PT NOT MORE SOA FEELS BETTER s/p right thoracentesis , 950 cc removed Vitals Vital Signs Date Time Temp Pulse Resp B/P (MAP) Pulse Ox O2 Delivery O2 Flow Rate FiO2 04/23/19 08:44 99 Nasal Cannula 2.0 04/23/19 07:00 98.3 64 18 121/53 (75) 98.3 ROS: No Nausea, No Chest Pain, No Abdominal Pain, No Increase Cough General: Alert, No acute distress Lungs: Other (decrease bases) Cardiovascular: S1 Abdomen: Soft, Other (obese) Extremities: Other (1+edema) Labs Laboratory Tests Test 04/21/19 21:15 04/22/19 07:20 04/22/19 08:55 04/22/19 12:06 Glucose (Fingerstick) 89 mg/dL (70-99) 80 mg/dL (70-99) 65 mg/dL (70-99) White Blood Count 4.1 x10^3/uL (4.0-11.0) Red Blood Count 2.95 x10^6/uL (3.50-5.40) Hemoglobin 9.9 g/dL (12.0-15.5) Hematocrit 31.3 % (36.0-47.0) Mean Corpuscular Volume 106 fL (79-100) Mean Corpuscular Hemoglobin 34 pg (25-35) Mean Corpuscular Hemoglobin Concent 32 g/dL (31-37) Red Cell Distribution Width 16.0 % (11.5-14.5) Platelet Count 109 x10^3/uL (140-400) Neutrophils (%) (Auto) 55 % (31-73) Lymphocytes (%) (Auto) 34 % (24-48) Monocytes (%) (Auto) 8 % (0-9) Eosinophils (%) (Auto) 3 % (0-3) Basophils (%) (Auto) 1 % (0-3) Neutrophils # (Auto) 2.2 x10^3/uL (1.8-7.7) Lymphocytes # (Auto) 1.4 x10^3/uL (1.0-4.8) Monocytes # (Auto) 0.3 x10^3/uL (0.0-1.1) Eosinophils # (Auto) 0.1 x10^3/uL (0.0-0.7) Basophils # (Auto) 0.0 x10^3/uL (0.0-0.2) Prothrombin Time 15.9 SEC (11.7-14.0) Prothromb Time International Ratio 1.3 (0.8-1.1) Test 04/22/19 17:01 04/22/19 20:28 04/23/19 04:30 04/23/19 07:42 Glucose (Fingerstick) 124 mg/dL (70-99) 128 mg/dL (70-99) 75 mg/dL (70-99) Sodium Level 140 mmol/L (136-145) Potassium Level 4.8 mmol/L (3.5-5.1) Chloride Level 103 mmol/L (98-107) Carbon Dioxide Level 31 mmol/L (21-32) Anion Gap 6 (6-14) Blood Urea Nitrogen 22 mg/dL (7-20) Creatinine 4.8 mg/dL (0.6-1.0) Estimated GFR (Cockcroft-Gault) 10.7 Glucose Level 119 mg/dL (70-99) Calcium Level 8.0 mg/dL (8.5-10.1) Test 04/23/19 09:35 Prothrombin Time 17.3 SEC (11.7-14.0) Prothromb Time International Ratio 1.4 (0.8-1.1) Laboratory Tests Test 04/22/19 12:06 04/22/19 17:01 04/22/19 20:28 04/23/19 04:30 Glucose (Fingerstick) 65 mg/dL (70-99) 124 mg/dL (70-99) 128 mg/dL (70-99) Sodium Level 140 mmol/L (136-145) Potassium Level 4.8 mmol/L (3.5-5.1) Chloride Level 103 mmol/L (98-107) Carbon Dioxide Level 31 mmol/L (21-32) Anion Gap 6 (6-14) Blood Urea Nitrogen 22 mg/dL (7-20) Creatinine 4.8 mg/dL (0.6-1.0) Estimated GFR (Cockcroft-Gault) 10.7 Glucose Level 119 mg/dL (70-99) Calcium Level 8.0 mg/dL (8.5-10.1) Test 04/23/19 07:42 04/23/19 09:35 Glucose (Fingerstick) 75 mg/dL (70-99) Prothrombin Time 17.3 SEC (11.7-14.0) Prothromb Time International Ratio 1.4 (0.8-1.1) Medications Active Scripts Medications Dose Route/Sig Max Daily Dose Days Date Category Gabapentin 300 Mg Capsule 300 Mg PO QHS 30 01/25/19 Rx Coumadin (Warfarin Sodium) 7.5 Mg Tablet 1 Tab PO DAILY 03/13/18 Reported Hydrocodone-Apap 7.5-325 (Hydrocodone Bit/Acetaminophen) 1 Each Tablet 1 Tab PO BID PRN 05/06/17 Reported Fluticasone Propionate Nasal [place] (Fluticasone Propionate) 16 Gm [place].susp 2 [place] NS DAILY 05/06/17 Reported Renvela (Sevelamer Carbonate) 800 Mg Tablet 800 Mg PO TIDWMEALS 05/06/17 Reported Ibuprofen 800 Mg Tablet 800 Mg PO PRN Q6HRS PRN 05/06/17 Reported Vitamin D3 (Cholecalciferol (Vitamin D3)) 2,000 Unit Tab.chew 1,000 Unit PO 05/06/17 Reported Ventolin Hfa Inhaler (Albuterol Sulfate) 18 Gm Hfa.aer.ad 2 Puff INH BID 05/06/17 Reported Amlodipine Besylate 5 Mg Tablet 5 Mg PO DAILY 05/06/17 Reported Nephro-Donovan Tablet (Folic Acid/Vitamin B Comp W-C) 0.8 Mg Tablet 0.8 Mg PO DAILY 12/20/16 Reported Sensipar (Cinacalcet Hcl) 30 Mg Tablet 30 Mg PO DAILY 12/20/16 Reported Low Dose Aspirin Ec (Aspirin) 81 Mg Tablet.dr 1 Tab PO DAILY 03/09/14 Reported Midodrine Hcl 5 Mg Tablet 5 Mg PO PRN PRN 03/09/14 Reported Levothyroxine Sodium 50 Mcg Tablet 50 Mcg PO DAILY 03/09/14 Reported Ranitidine Hcl 300 Mg Capsule 300 Mg PO BID 03/09/14 Reported Impression . 1. Acute respiratory failure secondary to combined metabolic and respiratory acidosis, pleural effusion----improved 2. Encephalopathy, contributed by hypercapnia. Hypothyroidism may have contributed in that as well ---resolved 3. Abnormal chest x-ray consistent with congestive heart failure with vascular markings been prominent and right lower lobe effusion along with cardiomegaly. 4. Morbid obesity needs to be ruled out for sleep apnea as an outpatient. I would recommend doing a sleep study. 5. Hypothyroidism with an elevated TSH level 6. BACTEREMIA BC FINAL BLOOD CULTURE LC Final Preliminary report Final report BLD CULT RESULT 1 Final Lactobacillus species Performed at: [address] [place] [id number] [employer] Applications Analyst: FLASH Mcdaniels MD, Phone: [phone] PENICILLIN 0.125 =S GENTAMICIN 4.0 =S Performed at: [address] [address], [place], [place] [id number] [employer] Analyst: FLASH Mcdaniels MD, Phone: [phone] Plan . PLACEMENT IS AN ISSUE FOLLOW NEPHRO AVOID SEDATION ON AC ANTI BX PER ID FINSHED COURSE MAY TRANSFER OR D/C FROM MY [facility] RANDALL SNIDER MD Apr 23, 2019 10:46
[2019-04-23] MEDS: TOPIRAMATE 25 MG TABLET. PO SCH (10:49)
[2019-04-23] MEDS: CINACALCET HCL 30 MG TABLET PO SCH (10:49)
[2019-04-23] MEDS: FOLIC/VIT B COMP W-C (RENAL) TABLET. PO SCH (10:49)
[2019-04-23] MEDS: SEVELAMER CARBONATE 800 MG TABLET. PO SCH ×3 (10:49→17:48)
[2019-04-23] MEDS: LACTOBACILLUS RHAMNOSUS GG 1 CAPSULE. PO SCH ×2 (10:50→22:04)
[2019-04-23] MEDS: DOCUSATE SODIUM 100 MG CAPSULE. PO SCH (10:50)
[2019-04-23] MEDS: ASPIRIN ENTERIC COATED 81 MG TABLET.DR. PO SCH (10:51)
[2019-04-23] MEDS: FLUTICASONE 50MCG/NASAL SPRAY 16GM BOTTLE. NS SCH (10:51)
[2019-04-23 10:52] LABS: BASO % 1 % (0-3); EOS # 0.1 x10^3/uL (0.0-0.7); EOS % 2 % (0-3); HEMATOCRIT 32.2 % (36.0-47.0); HEMOGLOBIN 10.1 g/dL (12.0-15.5); LYMPH # 1.6 x10^3/uL (1.0-4.8); LYMPH % 35 % (24-48); MEAN CORPUSCULAR HEMOGLOBIN 33 pg (25-35); MEAN CORPUSCULAR HGB CONC 31 g/dL (31-37); MEAN CORPUSCULAR VOLUME 106 fL (79-100); MONO # 0.4 x10^3/uL (0.0-1.1); MONO % 9 % (0-9); NEUT # 2.4 x10^3/uL (1.8-7.7); NEUT % 52 % (31-73); PLATELET COUNT 117 x10^3/uL (140-400); RED BLOOD COUNT 3.04 x10^6/uL (3.50-5.40); RED CELL DISTRIBUTION WIDTH 16.4 % (11.5-14.5); WHITE BLOOD COUNT 4.6 x10^3/uL (4.0-11.0)
--- NOTE | 2019-04-23 12:42 | PDOC ---
SUBJECTIVE ROS Stable , no concerns voiced, awaiting placement OBJECTIVE Vital Signs Vital Signs Date Time Temp Pulse Resp B/P (MAP) Pulse Ox O2 Delivery O2 Flow Rate FiO2 04/23/19 10:53 98.1 67 18 141/52 (81) 98 Nasal Cannula 2.0 98.1 I & 0 Intake and Output 04/23/19 06:59 Intake Total 400 ml Output Total 0 ml Balance 400 ml Intake Oral 400 ml Output Urine Total 0 ml # Bowel Movements 1 PHYSICAL EXAM Physical Exam GENERAL: NAD HEENT:Oropharynx pink and moist. NECK: Supple. LUNGS: Clear to auscultation. HEART: S1, S2. ABDOMEN: Obese, soft, a EXTREMITIES: No gross edema . LUE-AVF SKIN: No rash. NEUROLOGIC: Awake and answering questions appropriately. No Bonds DIAGNOSIS/ASSESSMENT Assessment & Plan ESRD - On HD TTS No indication for HD today Access- Had thrombosed left upper extremity HERO recently S/P Left upper extremity fistulogram, [employer] mechanical thrombolysis thrombos ed Hero graft.,Angioplasty of outflow vein stenosis on 04/01 dialysis graft DM- per primary Anemia - On FRED RLL infiltrate and pleural effusion - s/p Thoracentesis Sinus disease on CT Hypotension - On Midodrine Morbid Obesity COMMENT/RELEVANT DATA Meds Current Medications Medications (Trade) Dose Ordered Sig/Kenney Start Time Stop Time Status Last Admin Dose Admin Acetaminophen (Tylenol) 500 mg 1X PRN PRN 04/17/19 07:15 04/18/19 07:14 DC Al Hydroxide/Mg Hydroxide (Mylanta Plus Xs) 30 ml PRN DAILY PRN 04/14/19 15:45 Albumin Human 200 ml @ 200 mls/hr 1X PRN PRN 04/22/19 07:15 04/22/19 13:14 DC Albuterol Sulfate (Ventolin Neb Soln) 2.5 mg RTBID 04/14/19 20:00 04/23/19 08:44 2.5 MG Amlodipine Besylate (Norvasc) 5 mg DAILY 04/14/19 17:30 04/17/19 10:28 DC 04/16/19 11:42 5 MG Amoxicillin/ Clavulanate Potassium (Augmentin 500/ 125mg) 1 tab DAILY 04/16/19 14:45 04/16/19 15:23 DC Aspirin (Ecotrin) 81 mg DAILY 04/14/19 17:30 10/11/19 10:51 81 MG Calcium Gluconate 1000 mg/Dextrose 110 ml @ 220 mls/hr 1X ONCE 04/21/19 13:00 04/21/19 13:29 DC 04/21/19 13:19 220 MLS/HR Cinacalcet (Sensipar) 30 mg DAILY 04/14/19 17:30 04/23/19 10:49 30 MG Clonidine HCl (Catapres) 0.1 mg PRN Q6HRS PRN 04/14/19 15:45 Darbepoetin Andriy (ARANESP for DIALYSIS PTS) 60 mcg Sa 04/17/19 21:00 04/17/19 21:13 60 MCG Dextrose (Dextrose 50%-Water Syringe) 12.5 gm PRN Q15MIN PRN 04/14/19 17:15 04/15/19 14:10 12.5 GM Diphenhydramine HCl (Benadryl) 25 mg 1X PRN PRN 04/15/19 07:45 04/16/19 07:44 DC Docusate Sodium (Colace) 100 mg DAILY 04/23/19 09:00 04/23/19 10:50 100 MG Enoxaparin Sodium (Lovenox 40mg Syringe) 40 mg Q24H 04/14/19 18:00 Cancel Famotidine (Pepcid) 20 mg Q48H 04/14/19 21:00 04/22/19 21:44 20 MG Fluticasone Propionate (Flonase) 2 spray DAILY 04/14/19 17:30 04/23/19 10:51 2 SPRAY Gabapentin (Neurontin) 300 mg QHS 04/14/19 21:00 04/22/19 21:43 300 MG Heparin Sodium (Porcine) (Heparin Sodium) 5,000 unit Q8HRS 04/20/19 14:00 04/23/19 06:04 5,000 UNIT Info (PHARMACY MONITORING -- do not chart) 1 each PRN DAILY PRN 04/22/19 07:15 Lactobacillus Rhamnosus (Culturelle) 1 cap BID 04/16/19 21:00 04/23/19 10:50 1 CAP Levofloxacin/ Dextrose 100 ml @ 100 mls/hr Q48H 04/16/19 14:00 Cancel Levofloxacin/ Dextrose (Levaquin Per Pharmacy) 1 each PRN DAILY PRN 04/14/19 13:15 04/14/19 15:43 DC Levothyroxine Sodium (Synthroid) 100 mcg DAILY06 04/15/19 09:00 04/23/19 06:00 100 MCG Lidocaine HCl (Xylocaine-Mpf 1% 2ml Vial) 2 ml 1X ONCE 04/20/19 12:45 04/20/19 12:48 DC 04/20/19 13:02 2 ML Midodrine (Proamatine) 5 mg [id number] 04/14/19 18:00 04/23/19 06:00 5 MG Phytonadione (Vitamin K Ampule) 10 mg 1X ONCE 04/18/19 10:00 04/18/19 15:10 DC 04/18/19 11:50 10 MG Phytonadione 10 mg/Dextrose 51 ml @ 102 mls/hr 1X ONCE 04/18/19 13:45 04/18/19 15:10 DC Piperacillin Sod/ Tazobactam Sod (Zosyn Per Pharmacy) 1 each PRN DAILY PRN 04/15/19 10:30 04/16/19 14:44 DC Piperacillin Sod/ Tazobactam Sod 2.25 gm/Sodium Chloride 50 ml @ 100 mls/hr Q8HRS 04/16/19 16:00 04/21/19 07:10 DC 04/21/19 05:02 100 MLS/HR Polyethylene Glycol (miraLAX PACKET) 17 gm PRN DAILY PRN 04/22/19 13:15 04/23/19 10:50 17 GM Sevelamer Carbonate (Renvela) 800 mg TIDWMEALS 04/14/19 17:30 04/23/19 10:49 800 MG Sodium Bicarbonate (Sodium Bicarb Adult 8.4% Syr) 100 meq 1X ONCE 04/14/19 20:00 04/14/19 20:05 DC 04/14/19 20:09 100 MEQ Sodium Chloride 1,000 ml @ 400 mls/hr Q2H30M PRN 04/22/19 07:11 04/22/19 19:10 DC Topiramate (Topamax) 25 mg DAILY 04/20/19 17:00 04/23/19 10:49 25 MG Vancomycin HCl (Vanco Per Pharmacy) 1 each PRN DAILY PRN 04/16/19 15:30 04/21/19 07:10 DC 04/20/19 11:28 1 EACH Vancomycin HCl (Vancomycin Random Level) 1 each 1X ONCE 04/17/19 06:00 04/17/19 06:01 DC 04/17/19 06:00 1 EACH Vancomycin HCl 500 mg/Sodium Chloride 100 ml @ 100 mls/hr QTUTHSA 04/20/19 16:00 04/21/19 07:10 DC 04/20/19 18:22 100 MLS/HR Vancomycin HCl 1 gm/Sodium Chloride 250 ml @ 250 mls/hr 1X ONCE 04/17/19 15:00 04/17/19 15:59 DC 04/17/19 14:50 250 MLS/HR Vancomycin HCl 2 gm/Sodium Chloride 500 ml @ 250 mls/hr 1X ONCE 04/14/19 13:30 04/14/19 15:29 DC 04/14/19 18:29 250 MLS/HR Vitamin B Complex/ Vitamin C (Sandra-Donovan) 1 tab DAILY 04/14/19 17:30 04/23/19 10:49 1 TAB Warfarin Sodium (Coumadin Per Pharmacy) 1 each PRN DAILY PRN 04/19/19 16:00 04/22/19 13:16 1 EACH Warfarin Sodium (Coumadin) 10 mg 1X WARF ONCE 04/22/19 16:00 04/22/19 16:01 DC 04/22/19 16:57 10 MG Lab Laboratory Tests Test 04/22/19 17:01 04/22/19 20:28 04/23/19 04:30 04/23/19 07:42 Glucose (Fingerstick) 124 mg/dL (70-99) 128 mg/dL (70-99) 75 mg/dL (70-99) White Blood Count 4.6 x10^3/uL (4.0-11.0) Red Blood Count 3.04 x10^6/uL (3.50-5.40) Hemoglobin 10.1 g/dL (12.0-15.5) Hematocrit 32.2 % (36.0-47.0) Mean Corpuscular Volume 106 fL (79-100) Mean Corpuscular Hemoglobin 33 pg (25-35) Mean Corpuscular Hemoglobin Concent 31 g/dL (31-37) Red Cell Distribution Width 16.4 % (11.5-14.5) Platelet Count 117 x10^3/uL (140-400) Neutrophils (%) (Auto) 52 % (31-73) Lymphocytes (%) (Auto) 35 % (24-48) Monocytes (%) (Auto) 9 % (0-9) Eosinophils (%) (Auto) 2 % (0-3) Basophils (%) (Auto) 1 % (0-3) Neutrophils # (Auto) 2.4 x10^3/uL (1.8-7.7) Lymphocytes # (Auto) 1.6 x10^3/uL (1.0-4.8) Monocytes # (Auto) 0.4 x10^3/uL (0.0-1.1) Eosinophils # (Auto) 0.1 x10^3/uL (0.0-0.7) Basophils # (Auto) 0.0 x10^3/uL (0.0-0.2) Sodium Level 140 mmol/L (136-145) Potassium Level 4.8 mmol/L (3.5-5.1) Chloride Level 103 mmol/L (98-107) Carbon Dioxide Level 31 mmol/L (21-32) Anion Gap 6 (6-14) Blood Urea Nitrogen 22 mg/dL (7-20) Creatinine 4.8 mg/dL (0.6-1.0) Estimated GFR (Cockcroft-Gault) 10.7 Glucose Level 119 mg/dL (70-99) Calcium Level 8.0 mg/dL (8.5-10.1) KE-Drf-I-Type Natriuretic Peptide > 42425 pg/mL (0-449) Test 04/23/19 09:35 Prothrombin Time 17.3 SEC (11.7-14.0) Prothromb Time International Ratio 1.4 (0.8-1.1) Results All relevant outside records, renal labs, imaging studies, telemetry/EKG's were reviewed. MARIO NOVOA MD Apr 23, 2019 12:42
--- NOTE | 2019-04-23 12:49 | NUR ---
Pharmacy Warfarin Dosing Note S: Pharmacy consulted to assist with anticoagulation therapy O: ROSE CAMPOS is a 73 year old F with h/o VTE LABS: Last INR: 1.4 Last HGB: 10.1 Last HCT: 32.2 Last PLT: 117 Last dose of 10 mg given on 04/22/19 at 1657 Vitamin K given: Y 04/18 A:INR of 1.4 is below desired range. Target range for this patient is: 2 - 3 P: Warfarin dose: 10 mg Today at 1600 [facility] Therapy: Heparin sub-q q8h Next INR due 04/24/19 Pharmacy anticoagulation service will continue to follow. KHUSHBU TORRES [facility], 04/23/19 [id number]
[2019-04-23] MEDS ORDERED: LIDOCAINE/PRILOCAINE TOPICAL CREAM 5GM TUBE. TP PRN (13:00)
--- NOTE | 2019-04-23 13:01 | NUR ---
Pt given medications late this morning due to not wanting to eat breakfast until later.
--- NOTE | 2019-04-23 15:34 | NUR ---
SS following up with discharge planning. PT now recommending fpc unit. SS attempted to meet with pt to discuss but pt was not oriented at the time. SS contacted pt's daughter and discussed. Pt's daughter requested that referrals be phoned and faxed to [facility], ; fax [phone] and [facility] in [place], ; fax [phone]. associate merchandise planner, Delfina Burns, phoned and faxed referrals to [facility] and [facility]. SS will await acceptance decisions and will proceed accordingly.
[2019-04-23] MEDS ORDERED: WARFARIN 5 MG TABLET. PO ONE (16:00)
--- NOTE | 2019-04-23 16:53 | PDOC ---
PROGRESS NOTES Subjective Drowsy (topiramate?), weak, needs SNU/therapy, calcium better, sugars fine, INR still subtherapeutic, good BM yesterday Objective General: drowsy Heart: RRR Lungs: CTA Abd: soft and non tender Ext: no C/C/E Vital Signs Vital Signs Date Time Temp Pulse Resp B/P (MAP) Pulse Ox O2 Delivery O2 Flow Rate FiO2 04/23/19 14:50 98.7 78 16 96/43 (60) 94 Nasal Cannula 2.0 98.7 I & O Intake and Output 04/23/19 07:00 Intake Total 400 ml Output Total 0 ml Balance 400 ml Intake Oral 400 ml Output Urine Total 0 ml # Bowel Movements 1 Assessment and Plan acute hypercapnic respiratory failure - pulm following - needed Bipap initially encephalopathy, likely toxic and metabolic - continue to hold home dose of pain and anxiolytic meds, EEG confirmed diagnosis, no seizure activity suspected aspiration pneumonia - pulm and ID consults, she has completer 1 weeks of IV abx - lactobacillus on blood cx sphenoid sinusitis per imaging - ID consult ESRD - routine dialysis T,Th,Sat, 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 bacteremia - /3 bottles, lactobacillus per C&S - ID following and now completed IV abx tremor - essential type- Neuro consult, start low dose topiramate which may be causing drowsiness debility - now needing [facility] - PT/OT and SNU eval and transfer when approved hypocalcemia - replace with IV calcium gluconate, check phosphorus and magnesium levels also Joanne HUFF MD Apr 23, 2019 16:53
--- NOTE | 2019-04-23 16:57 | PDOC ---
PROGRESS NOTES Assessment Assessment Essential tremor. Generalized weakness. Hypocalcemia, Ca++ 7.6 Right LL infiltrate. Pulmonary effusion, R > L. Renal failure on dialysis. Cardiomegaly. CAD. DM. HTN. HLD. Hypothyroidism, TSH 10.97 Uterine cancer. Obesity. RECOMMENDATIONS/PLAN: Topamax 25 mg daily with titration up. Continue Neurontin 300 mg HS, may increase dose (though renal failure concern). Beta-Lizet not given due to hypotension. Treat medical diseases. OT/PT. HISTORY OF THE PRESENT ILLNESS: This is a 73-year-old female patient with above medical diseases was brought to the ER of [facility] due to weakness and grogginess after dialysis. Neurology was requested for consultation on 04/20/19 for tremors. She stated she has been having tremors in her hands for about 6 months and her tremors seemed became worse. She stated her LE were not affected. No stiffness. 04/23/19: No tremors observed. Past Medical History Cardiovascular: HTN, Other Pulmonary: Asthma GI: GERD Heme/Onc: Anemia NOS, Cancer Psych: Anxiety Renal/: Chronic renal failure Endocrine: Diabetes, Hypothyroidism Past Surgical History Tonsillectomy, Hysterectomy Family History Hypertension, Kidney Disease ALLERGY: NKDA MEDICATIONS: Refer to MAR SOCIAL HISTORY: Lives alone. Lives in half-way. Denies current smoking, drinking, and illicit drug use. REVIEW OF SYSTEMS: Constitutional: Obese. Head: No traumatic brain or head injury. Skin: No edema, or rash. Ear: No infection, tinnitus. Eyes: No vision loss or color blindness. Nose: No bleeding or purulent discharges. Hearing: Mild hearing decrease. Neck: No injury. Breast: No history of cancer, masses,or discharges. Cardiac: CAD, HTN, HLD. Pulmonary: Pneumonia. GI: No GI ulcer, GI bleeding. Urinary/genital: Renal failure on dialysis. Endocrinologic: Diabetes Mellitus, obesity. Skeletomuscular: Generalized weakness. Neurological: see HP. Psychiatric: Denies drug use/abuse. Otherwise, not [id number] review of systems. PHYSICAL EXAMINATION: General appearance is in subacute distress. HEENT: Normocephalic and nontraumatic. Eyes, nose, ears, and throat are unremarkable. Neck is supple. No lymphadenopathy. No crepitus. Cardiovascular: S1, S2, regular rate and rhythm. Pulmonary: Decreased to auscultation bilaterally. Abdomen: Bowel sounds are positive. Extremities: No rash, lesions, or edema. No restriction of range of motion NEUROLOGICAL EXAMINATION: Drowsiness. Not fully oriented to time, place and person. PERRL. EOMI. CN: no focal findings. Muscle tone: within normal. Muscle strength: 4+ UE, 4- LE. DTR: 1 Plantar reflex: Neutral response bilaterally Gait: not examined in bed. Sensory exam: no abnormal findings. No cerebellar signs elicited. Objective Objective Vital Signs Date Time Temp Pulse Resp B/P (MAP) Pulse Ox O2 Delivery O2 Flow Rate FiO2 04/23/19 14:50 98.7 78 16 96/43 (60) 94 Nasal Cannula 2.0 98.7 Intake and Output 04/23/19 07:00 Intake Total 400 ml Output Total 0 ml Balance 400 ml Intake Oral 400 ml Output Urine Total 0 ml # Bowel Movements 1 Vitals Signs Vitals VS - Last 72 Hours, by Label Date Time Temp Pulse Resp B/P (MAP) Pulse Ox O2 Delivery O2 Flow Rate FiO2 04/23/19 14:50 98.7 78 16 96/43 (60) 94 Nasal Cannula 2.0 98.7 04/23/19 13:42 67 128/60 04/23/19 10:53 98.1 67 18 141/52 (81) 98 Nasal Cannula 2.0 98.1 04/23/19 08:44 99 Nasal Cannula 2.0 04/23/19 08:00 Room Air 04/23/19 07:00 98.3 64 18 121/53 (75) 99 Nasal Cannula 2.0 98.3 04/23/19 06:00 73 91/36 04/23/19 02:20 98.2 73 16 91/36 (54) 95 Nasal Cannula 2.0 98.2 04/22/19 23:21 98.3 71 16 104/42 (62) 95 Nasal Cannula 2.0 98.3 04/22/19 20:02 98 Nasal Cannula 3.0 04/22/19 19:50 Room Air 2.0 04/22/19 19:24 97.5 70 18 102/44 (63) 100 Nasal Cannula 2.0 97.5 04/22/19 17:35 61 158/63 04/22/19 15:00 97.8 65 16 145/60 (88) 91 2.0 97.8 04/22/19 14:27 63 126/53 04/22/19 11:00 97.7 63 16 121/56 (77) 94 Nasal Cannula 2.0 97.7 04/22/19 08:00 Room Air 04/22/19 07:00 98.1 59 16 95/44 (61) 99 Nasal Cannula 2.0 98.1 Laboratory Laboratory Laboratory Tests Test 04/22/19 17:01 04/22/19 20:28 04/23/19 04:30 04/23/19 07:42 Glucose (Fingerstick) 124 mg/dL (70-99) 128 mg/dL (70-99) 75 mg/dL (70-99) White Blood Count 4.6 x10^3/uL (4.0-11.0) Red Blood Count 3.04 x10^6/uL (3.50-5.40) Hemoglobin 10.1 g/dL (12.0-15.5) Hematocrit 32.2 % (36.0-47.0) Mean Corpuscular Volume 106 fL (79-100) Mean Corpuscular Hemoglobin 33 pg (25-35) Mean Corpuscular Hemoglobin Concent 31 g/dL (31-37) Red Cell Distribution Width 16.4 % (11.5-14.5) Platelet Count 117 x10^3/uL (140-400) Neutrophils (%) (Auto) 52 % (31-73) Lymphocytes (%) (Auto) 35 % (24-48) Monocytes (%) (Auto) 9 % (0-9) Eosinophils (%) (Auto) 2 % (0-3) Basophils (%) (Auto) 1 % (0-3) Neutrophils # (Auto) 2.4 x10^3/uL (1.8-7.7) Lymphocytes # (Auto) 1.6 x10^3/uL (1.0-4.8) Monocytes # (Auto) 0.4 x10^3/uL (0.0-1.1) Eosinophils # (Auto) 0.1 x10^3/uL (0.0-0.7) Basophils # (Auto) 0.0 x10^3/uL (0.0-0.2) Sodium Level 140 mmol/L (136-145) Potassium Level 4.8 mmol/L (3.5-5.1) Chloride Level 103 mmol/L (98-107) Carbon Dioxide Level 31 mmol/L (21-32) Anion Gap 6 (6-14) Blood Urea Nitrogen 22 mg/dL (7-20) Creatinine 4.8 mg/dL (0.6-1.0) Estimated GFR (Cockcroft-Gault) 10.7 Glucose Level 119 mg/dL (70-99) Calcium Level 8.0 mg/dL (8.5-10.1) [id number]-Type Natriuretic Peptide > 62079 pg/mL (0-449) Test 04/23/19 09:35 04/23/19 12:17 Prothrombin Time 17.3 SEC (11.7-14.0) Prothromb Time International Ratio 1.4 (0.8-1.1) Glucose (Fingerstick) 122 mg/dL (70-99) Microbiology 04/19/19 Anaerobic/Aerobic Culture, Resulted Pending 04/19/19 Anaerobic Culture Result 1 (BLACK), Resulted Pending 04/19/19 Aerobic Culture - Final, Resulted 04/19/19 Aerobic Culture Result 1 (LBACK) - Final, Resulted 04/19/19 Gram Stain - Final, Resulted 04/19/19 Gram Stain Result 1 (BLACK) - Final, Resulted 04/19/19 Gram Stain Result 2 (BLACK) - Final, Resulted 04/14/19 Blood Culture - Final, Complete NO GROWTH AFTER 5 DAYS Medication Medications Current Medications Docusate Sodium (Colace) 100 mg DAILY PO Last administered on 04/23/19at 10:50; Start 04/23/19 at 09:00 Lidocaine/ Prilocaine (Emla) 1 candice 1X PRN TP PAIN; Start 04/23/19 at 13:00; Stop 04/23/19 at 23:59 Warfarin Sodium (Coumadin) 10 mg 1X WARF ONCE PO Last administered on 04/23/19at 15:40; Start 04/23/19 at 16:00; Stop 04/23/19 at 16:01; Status DC Comment Review of Relevant I have reviewed the following items gloria (where applicable) has been applied. OLIVIA NARANJO MD Apr 23, 2019 16:57
[2019-04-23] MEDS: GABAPENTIN 300 MG CAPSULE. PO SCH (22:04)
[2019-04-24 03:52] VITALS: BP 89/30
[2019-04-24] MEDS: LEVOTHYROXINE 100 MCG TABLET PO SCH (06:14)
[2019-04-24] MEDS: HEPARIN for SUB-Q USE 5,000 UNIT/ML VIAL. SQ SCH ×3 (06:16→20:23)
[2019-04-24 07:00] VITALS: BP 113/50
[2019-04-24] MEDS: MIDODRINE 5 MG TABLET PO SCH ×3 (07:00→16:36)
[2019-04-24] MEDS: ALBUTEROL SULFATE 2.5 MG/3 ML NEBU. NEB SCH ×2 (08:00→19:49)
[2019-04-24] MEDS: SEVELAMER CARBONATE 800 MG TABLET. PO SCH ×3 (08:00→16:36)
[2019-04-24] MEDS ORDERED: LIDOCAINE 1% PF 2 ML VIAL. ID STA (08:20)
[2019-04-24] MEDS ORDERED: diphenhydrAMINE 50 MG/ML VIAL IV PRN ×2 (08:30)
[2019-04-24] MEDS ORDERED: IV NORMAL SALINE 1000ML BAG 1,000 ML IV PRN ×2 (08:30)
[2019-04-24] MEDS ORDERED: DIALYSIS PATIENT. MC PRN (08:30)
[2019-04-24 09:05] LABS: PROTHROMBIN TIME PATIENT 21.3 SEC (11.7-14.0)
--- NOTE | 2019-04-24 10:45 | PDOC ---
PULMONARY PROGRESS NOTES Subjective Pt. is resting comfortably currently on HD Pt. denies SOB or cough reports she is hungry Vitals Vital Signs Date Time Temp Pulse Resp B/P (MAP) Pulse Ox O2 Delivery O2 Flow Rate FiO2 04/24/19 08:00 Nasal Cannula 2.0 04/24/19 07:00 97.9 53 20 113/50 (71) 94 97.9 ROS: No Nausea, No Chest Pain, No Abdominal Pain, No Increase Cough General: Alert, No acute distress Lungs: Other (decrease bases) Cardiovascular: S1 Abdomen: Soft, Other (obese) Extremities: Other (+!BLE edema ) Labs Laboratory Tests Test 04/22/19 12:06 04/22/19 17:01 04/22/19 20:28 04/23/19 04:30 Glucose (Fingerstick) 65 mg/dL (70-99) 124 mg/dL (70-99) 128 mg/dL (70-99) White Blood Count 4.6 x10^3/uL (4.0-11.0) Red Blood Count 3.04 x10^6/uL (3.50-5.40) Hemoglobin 10.1 g/dL (12.0-15.5) Hematocrit 32.2 % (36.0-47.0) Mean Corpuscular Volume 106 fL (79-100) Mean Corpuscular Hemoglobin 33 pg (25-35) Mean Corpuscular Hemoglobin Concent 31 g/dL (31-37) Red Cell Distribution Width 16.4 % (11.5-14.5) Platelet Count 117 x10^3/uL (140-400) Neutrophils (%) (Auto) 52 % (31-73) Lymphocytes (%) (Auto) 35 % (24-48) Monocytes (%) (Auto) 9 % (0-9) Eosinophils (%) (Auto) 2 % (0-3) Basophils (%) (Auto) 1 % (0-3) Neutrophils # (Auto) 2.4 x10^3/uL (1.8-7.7) Lymphocytes # (Auto) 1.6 x10^3/uL (1.0-4.8) Monocytes # (Auto) 0.4 x10^3/uL (0.0-1.1) Eosinophils # (Auto) 0.1 x10^3/uL (0.0-0.7) Basophils # (Auto) 0.0 x10^3/uL (0.0-0.2) Sodium Level 140 mmol/L (136-145) Potassium Level 4.8 mmol/L (3.5-5.1) Chloride Level 103 mmol/L (98-107) Carbon Dioxide Level 31 mmol/L (21-32) Anion Gap 6 (6-14) Blood Urea Nitrogen 22 mg/dL (7-20) Creatinine 4.8 mg/dL (0.6-1.0) Estimated GFR (Cockcroft-Gault) 10.7 Glucose Level 119 mg/dL (70-99) Calcium Level 8.0 mg/dL (8.5-10.1) UF-[id number]-B-Type Natriuretic Peptide > 15094 pg/mL (0-449) Test 04/23/19 07:42 04/23/19 09:35 04/23/19 12:17 04/23/19 17:09 Glucose (Fingerstick) 75 mg/dL (70-99) 122 mg/dL (70-99) 104 mg/dL (70-99) Prothrombin Time 17.3 SEC (11.7-14.0) Prothromb Time International Ratio 1.4 (0.8-1.1) Test 04/23/19 20:36 04/24/19 07:47 04/24/19 08:30 Glucose (Fingerstick) 102 mg/dL (70-99) 97 mg/dL (70-99) Prothrombin Time 21.3 SEC (11.7-14.0) Prothromb Time International Ratio 1.9 (0.8-1.1) Laboratory Tests Test 04/23/19 12:17 04/23/19 17:09 04/23/19 20:36 04/24/19 07:47 Glucose (Fingerstick) 122 mg/dL (70-99) 104 mg/dL (70-99) 102 mg/dL (70-99) 97 mg/dL (70-99) Test 04/24/19 08:30 Prothrombin Time 21.3 SEC (11.7-14.0) Prothromb Time International Ratio 1.9 (0.8-1.1) Medications Active Scripts Medications Dose Route/Sig Max Daily Dose Days Date Category Gabapentin 300 Mg Capsule 300 Mg PO QHS 30 01/25/19 Rx Coumadin (Warfarin Sodium) 7.5 Mg Tablet 1 Tab PO DAILY 03/13/18 Reported Hydrocodone-Apap 7.5-325 (Hydrocodone Bit/Acetaminophen) 1 Each Tablet 1 Tab PO BID PRN 05/06/17 Reported Fluticasone Propionate Nasal Hayden (Fluticasone Propionate) 16 Gm Hayden.susp 2 Hayden NS DAILY 05/06/17 Reported Renvela (Sevelamer Carbonate) 800 Mg Tablet 800 Mg PO TIDWMEALS 05/06/17 Reported Ibuprofen 800 Mg Tablet 800 Mg PO PRN Q6HRS PRN 05/06/17 Reported Vitamin D3 (Cholecalciferol (Vitamin D3)) 2,000 Unit Tab.chew 1,000 Unit PO 05/06/17 Reported Ventolin Hfa Inhaler (Albuterol Sulfate) 18 Gm Hfa.aer.ad 2 Puff INH BID 05/06/17 Reported Amlodipine Besylate 5 Mg Tablet 5 Mg PO DAILY 05/06/17 Reported Nephro-Donovan Tablet (Folic Acid/Vitamin B Comp W-C) 0.8 Mg Tablet 0.8 Mg PO DAILY 12/20/16 Reported Sensipar (Cinacalcet Hcl) 30 Mg Tablet 30 Mg PO DAILY 12/20/16 Reported Low Dose Aspirin Ec (Aspirin) 81 Mg Tablet.dr 1 Tab PO DAILY 03/09/14 Reported Midodrine Hcl 5 Mg Tablet 5 Mg PO PRN PRN 03/09/14 Reported Levothyroxine Sodium 50 Mcg Tablet 50 Mcg PO DAILY 03/09/14 Reported Ranitidine Hcl 300 Mg Capsule 300 Mg PO BID 03/09/14 Reported Impression . 1. Acute respiratory failure secondary to combined metabolic and respiratory acidosis, pleural effusion----improved 2. Encephalopathy, contributed by hypercapnia. Hypothyroidism may have contributed in that as well ---resolved 3. Abnormal chest x-ray consistent with congestive heart failure with vascular markings been prominent and right lower lobe effusion along with cardiomegaly. 4. Morbid obesity needs to be ruled out for sleep apnea as an outpatient. I would recommend doing a sleep study. 5. Hypothyroidism with an elevated TSH level 6. BACTEREMIA BC + Lactobacillus species Plan . 1. cont. supplemental oxygen/ nebs PRN 2. cont. Coumadin 3. completed full course of antibiotics 4. cont HD and other recs per nephrology 5.s/p right thoracentesis , 950 cc removed 6. D/W RN Ok to D/C OR TRANSFER from our standpoint Thank you RANDALL SNIDER MD Apr 24, 2019 10:45
--- NOTE | 2019-04-24 11:01 | PDOC ---
Dialysis Progress Note Dialysis Note Dialysis Note Seen on Hemodialysis, tolerating treatment Okay Vitals on Hemodialysis: 101/44 53 afeb General Appearance: Awake: Neck: No JVD or JVP Chest: CTA Brigido Heart: S1 S2 Abdomen - Soft NTND Extremities - No Edema ESRD: Dialysis as below F 180 NR 3.5 Hrs 3 K 2.5 Ca 140 Na 35 HC03 Qb 350 + Qd 500+ Heparin 0 Units Uf 1 Kgs or to dry weight as tolerated May give 25-50 gms of 25% Albumin if needed to maintain Hemodynamic stability Treatment plan reviewed and discussed with press maintainer Vitals Vital Signs Vital Signs Date Time Temp Pulse Resp B/P (MAP) Pulse Ox O2 Delivery O2 Flow Rate FiO2 04/24/19 08:00 Nasal Cannula 2.0 04/24/19 07:00 97.9 53 20 113/50 (71) 94 97.9 Labs Last Labs Laboratory Tests Test 04/22/19 12:06 04/22/19 17:01 04/22/19 20:28 04/23/19 04:30 Glucose (Fingerstick) 65 mg/dL (70-99) 124 mg/dL (70-99) 128 mg/dL (70-99) White Blood Count 4.6 x10^3/uL (4.0-11.0) Red Blood Count 3.04 x10^6/uL (3.50-5.40) Hemoglobin 10.1 g/dL (12.0-15.5) Hematocrit 32.2 % (36.0-47.0) Mean Corpuscular Volume 106 fL (79-100) Mean Corpuscular Hemoglobin 33 pg (25-35) Mean Corpuscular Hemoglobin Concent 31 g/dL (31-37) Red Cell Distribution Width 16.4 % (11.5-14.5) Platelet Count 117 x10^3/uL (140-400) Neutrophils (%) (Auto) 52 % (31-73) Lymphocytes (%) (Auto) 35 % (24-48) Monocytes (%) (Auto) 9 % (0-9) Eosinophils (%) (Auto) 2 % (0-3) Basophils (%) (Auto) 1 % (0-3) Neutrophils # (Auto) 2.4 x10^3/uL (1.8-7.7) Lymphocytes # (Auto) 1.6 x10^3/uL (1.0-4.8) Monocytes # (Auto) 0.4 x10^3/uL (0.0-1.1) Eosinophils # (Auto) 0.1 x10^3/uL (0.0-0.7) Basophils # (Auto) 0.0 x10^3/uL (0.0-0.2) Sodium Level 140 mmol/L (136-145) Potassium Level 4.8 mmol/L (3.5-5.1) Chloride Level 103 mmol/L (98-107) Carbon Dioxide Level 31 mmol/L (21-32) Anion Gap 6 (6-14) Blood Urea Nitrogen 22 mg/dL (7-20) Creatinine 4.8 mg/dL (0.6-1.0) Estimated GFR (Cockcroft-Gault) 10.7 Glucose Level 119 mg/dL (70-99) Calcium Level 8.0 mg/dL (8.5-10.1) JT-Ghq-U-Type Natriuretic Peptide > 97749 pg/mL (0-449) Test 04/23/19 07:42 04/23/19 09:35 04/23/19 12:17 04/23/19 17:09 Glucose (Fingerstick) 75 mg/dL (70-99) 122 mg/dL (70-99) 104 mg/dL (70-99) Prothrombin Time 17.3 SEC (11.7-14.0) Prothromb Time International Ratio 1.4 (0.8-1.1) Test 04/23/19 20:36 04/24/19 07:47 04/24/19 08:30 Glucose (Fingerstick) 102 mg/dL (70-99) 97 mg/dL (70-99) Prothrombin Time 21.3 SEC (11.7-14.0) Prothromb Time International Ratio 1.9 (0.8-1.1) Laboratory Tests Test 04/23/19 12:17 04/23/19 17:09 04/23/19 20:36 04/24/19 07:47 Glucose (Fingerstick) 122 mg/dL (70-99) 104 mg/dL (70-99) 102 mg/dL (70-99) 97 mg/dL (70-99) Test 04/24/19 08:30 Prothrombin Time 21.3 SEC (11.7-14.0) Prothromb Time International Ratio 1.9 (0.8-1.1) Assessment Assessment Problems Medical Problems: (1) Right lower lobe pneumonia Status: Acute Plan Plan of Care Problems Medical Problems: (1) Right lower lobe pneumonia Status: Acute VIPIN RICHARD MD Apr 24, 2019 11:01
--- NOTE | 2019-04-24 13:01 | PDOC ---
PROGRESS NOTES Subjective Subjective Patient feeling better. Patient able to answer questions. Objective Objective Vital Signs Date Time Temp Pulse Resp B/P (MAP) Pulse Ox O2 Delivery O2 Flow Rate FiO2 04/24/19 08:00 Nasal Cannula 2.0 04/24/19 07:00 97.9 53 20 113/50 (71) 94 97.9 Intake and Output 04/24/19 07:00 Intake Total 220 ml Output Total 0 ml Balance 220 ml Intake Oral 220 ml Output Urine Total 0 ml Physical Exam Abdomen: Normal bowel sounds Heart: Regular rate Extremities: Other (2+ edema) General: Alert Lungs: Clear to auscultation Assessment Assessment Problems Medical Problems: (1) Right lower lobe pneumonia Status: Acute acute hypercapnic respiratory failure encephalopathy, likely toxic and metabolic suspected aspiration pneumonia sphenoid sinusitis per imaging ESRD - Bradycardia right pleural effusion - thoracentesis done 04/19 with 950 cc removed coagulopathy - resume subQ heparin until INR therapeutic HTN anemia of chronic renal disease - gram positive tina lactobacillus sp. bacteremia - 07/16 bottles, lactobacillus per C&S - ID following and now completed IV abx tremor - essential type- Neuro consult, start low dose topiramate which may be causing drowsiness debility - now needing Dominique lift - PT/OT and SNU eval and transfer when approved hypocalcemia - replace with IV calcium gluconate, check phosphorus and magnesium levels also Plan Plan of Care Continue renal and pulm care To SNU Friday Continue antibx Monitor BP Comment Review of Relevant I have reviewed the following items gloria (where applicable) has been applied. Labs Laboratory Tests Test 04/22/19 17:01 04/22/19 20:28 04/23/19 04:30 04/23/19 07:42 Glucose (Fingerstick) 124 mg/dL (70-99) 128 mg/dL (70-99) 75 mg/dL (70-99) White Blood Count 4.6 x10^3/uL (4.0-11.0) Red Blood Count 3.04 x10^6/uL (3.50-5.40) Hemoglobin 10.1 g/dL (12.0-15.5) Hematocrit 32.2 % (36.0-47.0) Mean Corpuscular Volume 106 fL (79-100) Mean Corpuscular Hemoglobin 33 pg (25-35) Mean Corpuscular Hemoglobin Concent 31 g/dL (31-37) Red Cell Distribution Width 16.4 % (11.5-14.5) Platelet Count 117 x10^3/uL (140-400) Neutrophils (%) (Auto) 52 % (31-73) Lymphocytes (%) (Auto) 35 % (24-48) Monocytes (%) (Auto) 9 % (0-9) Eosinophils (%) (Auto) 2 % (0-3) Basophils (%) (Auto) 1 % (0-3) Neutrophils # (Auto) 2.4 x10^3/uL (1.8-7.7) Lymphocytes # (Auto) 1.6 x10^3/uL (1.0-4.8) Monocytes # (Auto) 0.4 x10^3/uL (0.0-1.1) Eosinophils # (Auto) 0.1 x10^3/uL (0.0-0.7) Basophils # (Auto) 0.0 x10^3/uL (0.0-0.2) Sodium Level 140 mmol/L (136-145) Potassium Level 4.8 mmol/L (3.5-5.1) Chloride Level 103 mmol/L (98-107) Carbon Dioxide Level 31 mmol/L (21-32) Anion Gap 6 (6-14) Blood Urea Nitrogen 22 mg/dL (7-20) Creatinine 4.8 mg/dL (0.6-1.0) Estimated GFR (Cockcroft-Gault) 10.7 Glucose Level 119 mg/dL (70-99) Calcium Level 8.0 mg/dL (8.5-10.1) TI-[id number]-Type Natriuretic Peptide > 01777 pg/mL (0-449) Test 04/23/19 09:35 04/23/19 12:17 04/23/19 17:09 04/23/19 20:36 Prothrombin Time 17.3 SEC (11.7-14.0) Prothromb Time International Ratio 1.4 (0.8-1.1) Glucose (Fingerstick) 122 mg/dL (70-99) 104 mg/dL (70-99) 102 mg/dL (70-99) Test 04/24/19 07:47 04/24/19 08:30 Glucose (Fingerstick) 97 mg/dL (70-99) Prothrombin Time 21.3 SEC (11.7-14.0) Prothromb Time International Ratio 1.9 (0.8-1.1) Laboratory Tests Test 04/23/19 17:09 04/23/19 20:36 04/24/19 07:47 04/24/19 08:30 Glucose (Fingerstick) 104 mg/dL (70-99) 102 mg/dL (70-99) 97 mg/dL (70-99) Prothrombin Time 21.3 SEC (11.7-14.0) Prothromb Time International Ratio 1.9 (0.8-1.1) Microbiology 04/19/19 Anaerobic/Aerobic Culture - Final, Complete 04/19/19 Anaerobic Culture Result 1 (BLACK) - Final, Complete 04/19/19 Aerobic Culture - Final, Complete 04/19/19 Aerobic Culture Result 1 (BLACK) - Final, Complete 04/19/19 Gram Stain - Final, Complete 04/19/19 Gram Stain Result 1 (BLACK) - Final, Complete 04/19/19 Gram Stain Result 2 (BLACK) - Final, Complete 04/14/19 Blood Culture - Final, Complete NO GROWTH AFTER 5 DAYS Medications Current Medications Levofloxacin/ Dextrose (Levaquin Per Pharmacy) 1 each PRN DAILY PRN MC SEE COMMENTS; Start 04/14/19 at 13:15; Stop 04/14/19 at 15:43; Status DC Vancomycin HCl (Vanco Per Pharmacy) 1 each PRN DAILY PRN MC SEE COMMENTS Last administered on 04/16/19at 08:56; Start 04/14/19 at 13:15; Stop 04/16/19 at 14:44; Status DC Vancomycin HCl 2 gm/Sodium Chloride 500 ml @ 250 mls/hr 1X ONCE IV Last administered on 04/14/19at 18:29; Start 04/14/19 at 13:30; Stop 04/14/19 at 15:29; Status DC Levofloxacin/ Dextrose 100 ml @ 100 mls/hr 1X ONCE IV Last administered on 04/14/19at 13:54; Start 04/14/19 at 13:45; Stop 04/14/19 at 14:44; Status DC Levofloxacin/ Dextrose 100 ml @ 100 mls/hr Q48H IV ; Start 04/16/19 at 14:00; Status Cancel Acetaminophen (Tylenol) 650 mg PRN Q4HRS PRN PO TEMP OVER 100.4F OR MILD PAIN Last administered on 04/23/19 10:49; Start 04/14/19 at 15:45 Al Hydroxide/Mg Hydroxide (Mylanta Plus Xs) 30 ml PRN DAILY PRN PO HEARTBURN / GAS; Start 04/14/19 at 15:45 Clonidine HCl (Catapres) 0.1 mg PRN Q6HRS PRN PO SBP>160 OR DBP>90; Start 04/14/19 at 15:45 Docusate Sodium (Colace) 100 mg PRN BID PRN PO CONSTIPATION Last administered on 04/19/19 12:39; Start 04/14/19 at 15:45 Enoxaparin Sodium (Lovenox 40mg Syringe) 40 mg Q24H SQ ; Start 04/14/19 at 18:00; Status Cancel Heparin Sodium (Porcine) (Heparin Sodium) 5,000 unit Q8HRS SQ Last administered on 04/17/19 14:16; Start 04/14/19 at 22:00; Stop 04/17/19 at 20:21; Status DC Amlodipine Besylate (Norvasc) 5 mg DAILY PO Last administered on 04/16/19 11:42; Start 04/14/19 at 17:30; Stop 04/17/19 at 10:28; Status DC Aspirin (Ecotrin) 81 mg DAILY PO Last administered on 04/23/19 10:51; Start 04/14/19 at 17:30 Cinacalcet (Sensipar) 30 mg DAILY PO Last administered on 04/23/19 10:49; Start 04/14/19 at 17:30 Fluticasone Propionate (Flonase) 2 spray DAILY NS Last administered on 04/23/19 10:51; Start 04/14/19 at 17:30 Vitamin B Complex/ Vitamin C (Sandra-Donovan) 1 tab DAILY PO Last administered on 04/23/19 10:49; Start 04/14/19 at 17:30 Gabapentin (Neurontin) 300 mg QHS PO Last administered on 04/23/19at 22:04; St art 04/14/19 at 21:00 Levothyroxine Sodium (Synthroid) 50 mcg DAILY PO ; Start 04/14/19 at 17:00; Stop 04/15/19 at 08:38; Status DC Midodrine (Proamatine) 5 mg [id number] PO Last administered on 04/23/19at 18:00; Start 04/14/19 at 18:00 Sevelamer Carbonate (Renvela) 800 mg TIDWMEALS PO Last administered on 04/23/19at 17:48; Start 04/14/19 at 17:30 Warfarin Sodium (Coumadin) 7.5 mg DAILY16 PO Last administered on 04/14/19at 17:35; Start 04/14/19 at 17:11; Stop 04/15/19 at 10:15; Status DC Albuterol Sulfate (Ventolin Neb Soln) 2.5 mg RTBID NEB Last administered on 04/23/19at 20:20; Start 04/14/19 at 20:00 Famotidine (Pepcid) 20 mg Q48H PO Last administered on 04/22/19at 21:44; Start 04/14/19 at 21:00 Warfarin Sodium (Coumadin Per Pharmacy) 1 each PRN DAILY PRN MC SEE COMMENTS Last administered on 04/16/19at 09:08; Start 04/14/19 at 17:15; Stop 04/16/19 at 12:48; Status DC Dextrose (Dextrose 50%-Water Syringe) 12.5 gm PRN Q15MIN PRN IV SEE COMMENTS Last administered on 04/15/19at 14:10; Start 04/14/19 at 17:15 Vancomycin HCl (Vancomycin Random Level) 1 each 1X ONCE MC ; Start 04/17/19 at 06:00; Stop 04/16/19 at 14:47; Status DC Sodium Bicarbonate (Sodium Bicarb Adult 8.4% Syr) 100 meq 1X ONCE IV Last administered on 04/14/19 20:09; Start 04/14/19 at 20:00; Stop 04/14/19 at 20:05; Status DC Sodium Chloride 1,000 ml @ 1,000 mls/hr Q1H PRN IV hypotension; Start 04/15/19 at 07:35; Stop 04/15/19 at 13:34; Status DC Albumin Human 200 ml @ 200 mls/hr 1X PRN PRN IV Hypotension; Start 04/15/19 at 07:45; Stop 04/15/19 at 13:44; Status DC Acetaminophen (Tylenol) 500 mg 1X PRN PRN PO MILD PAIN / TEMP; Start 04/15/19 at 07:45; Stop 04/16/19 at 07:44; Status DC Diphenhydramine HCl (Benadryl) 25 mg 1X PRN PRN IV ITCHING; Start 04/15/19 at 07:45; Stop 04/16/19 at 07:44; Status DC Diphenhydramine HCl (Benadryl) 25 mg 1X PRN PRN IV ITCHING; Start 04/15/19 at 07:45; Stop 04/16/19 at 07:44; Status DC Sodium Chloride 1,000 ml @ 400 mls/hr Q2H30M PRN IV PATENCY; Start 04/15/19 at 07:35; Stop 04/15/19 at 19:34; Status DC Info (PHARMACY MONITORING -- do not chart) 1 each PRN DAILY PRN MC SEE COMMENTS; Start 04/15/19 at 07:45; Status Cancel Info (PHARMACY MONITORING -- do not chart) 1 each PRN DAILY PRN MC SEE COMMENTS; Start 04/15/19 at 07:45; Status UNV Lidocaine HCl (Xylocaine-Mpf 1% 2ml Vial) 2 ml 1X ONCE INJ ; Start 04/15/19 at 07:45; Stop 04/15/19 at 07:52; Status DC Levothyroxine Sodium (Synthroid) 100 mcg DAILY06 PO Last administered on 04/24/19at 06:14; Start 04/15/19 at 09:00 Piperacillin Sod/ Tazobactam Sod 2.25 gm/Sodium Chloride 50 ml @ 100 mls/hr Q8HRS IV ; Start 04/15/19 at 12:00; Status Cancel Piperacillin Sod/ Tazobactam Sod (Zosyn Per Pharmacy) 1 each PRN DAILY PRN MC SEE COMMENTS; Start 04/15/19 at 10:30; Stop 04/16/19 at 14:44; Status DC Piperacillin Sod/ Tazobactam Sod 2.25 gm/Sodium Chloride 50 ml @ 100 mls/hr Q8H IV Last administered on 04/16/19at 11:42; Start 04/15/19 at 11:00; Stop 04/16/19 at 14:44; Status DC Amoxicillin/ Clavulanate Potassium (Augmentin 500/ 125mg) 1 tab DAILY PO ; S tart 04/16/19 at 14:45; Stop 04/16/19 at 15:23; Status DC Piperacillin Sod/ Tazobactam Sod 2.25 gm/Sodium Chloride 50 ml @ 100 mls/hr Q8HRS IV Last administered on 04/21/19at 05:02; Start 04/16/19 at 16:00; Stop 04/21/19 at 07:10; Status DC Vancomycin HCl (Vanco Per Pharmacy) 1 each PRN DAILY PRN MC SEE COMMENTS Last administered on 04/20/19at 11:28; Start 04/16/19 at 15:30; Stop 04/21/19 at 07:10; Status DC Vancomycin HCl (Vancomycin Random Level) 1 each 1X ONCE MC Last administered on 04/17/19at 06:00; Start 04/17/19 at 06:00; Stop 04/17/19 at 06:01; Status DC Lactobacillus Rhamnosus (Culturelle) 1 cap BID PO Last administered on 04/23/19at 22:04; Start 04/16/19 at 21:00 Sodium Chloride 1,000 ml @ 1,000 mls/hr Q1H PRN IV hypotension; Start 04/17/19 at 07:15; Stop 04/17/19 at 13:14; Status DC Acetaminophen (Tylenol) 500 mg 1X PRN PRN PO MILD PAIN / TEMP; Start 04/17/19 at 07:15; Stop 04/18/19 at 07:14; Status DC Sodium Chloride 1,000 ml @ 400 mls/hr Q2H30M PRN IV PATENCY; Start 04/17/19 at 07:15; Stop 04/17/19 at 19:14; Status DC Info (PHARMACY MONITORING -- do not chart) 1 each PRN DAILY PRN MC SEE COMMENTS; Start 04/17/19 at 07:15; Status UNV Info (PHARMACY MONITORING -- do not chart) 1 each PRN DAILY PRN MC SEE COMMENTS; Start 04/17/19 at 07:15 Vancomycin HCl 500 mg/Sodium Chloride 100 ml @ 100 mls/hr QTUTHSA IV Last administered on 04/20/19at 18:22; Start 04/20/19 at 16:00; Stop 04/21/19 at 07:10; Status DC Vancomycin HCl 1 gm/Sodium Chloride 250 ml @ 250 mls/hr 1X ONCE IV Last administered on 04/17/19at 14:50; Start 04/17/19 at 15:00; Stop 04/17/19 at 15:59; Status DC Darbepoetin Andriy (ARANESP for DIALYSIS PTS) 60 mcg Sa SQ Last administered on 04/17/19at 21:13; Start 04/17/19 at 21:00 Phytonadione (Vitamin K Ampule) 10 mg 1X ONCE SQ Last administered on 04/18/19at 11:50; Start 04/18/19 at 10:00; Stop 04/18/19 at 15:10; Status DC Phytonadione 10 mg/Dextrose 51 ml @ 102 mls/hr 1X ONCE IV ; Start 04/18/19 at 13:45; Stop 04/18/19 at 15:10; Status DC Warfarin Sodium (Coumadin Per Pharmacy) 1 each PRN DAILY PRN MC SEE COMMENTS Last administered on 04/23/19at 12:49; Start 04/19/19 at 16:00 Warfarin Sodium (Coumadin) 7.5 mg 1X WARF ONCE PO Last administered on 04/19/19at 17:42; Start 04/19/19 at 16:30; Stop 04/19/19 at 16:31; Status DC Heparin Sodium (Porcine) (Heparin Sodium) 5,000 unit Q8HRS SQ Last administered on 04/24/19at 06:16; Start 04/20/19 at 14:00 Sodium Chloride 250 ml @ 250 mls/hr 1X ONCE IV Last administered on 04/20/19at 11:57; Start 04/20/19 at 11:30; Stop 04/20/19 at 12:29; Status DC Warfarin Sodium (Coumadin) 7.5 mg 1X WARF ONCE PO Last administered on 04/20/19at 17:25; Start 04/20/19 at 16:00; Stop 04/20/19 at 16:01; Status DC Sodium Chloride 1,000 ml @ 1,000 mls/hr Q1H PRN IV hypotension; Start 04/20/19 at 12:39; Stop 04/20/19 at 18:38; Status DC Sodium Chloride 1,000 ml @ 400 mls/hr Q2H30M PRN IV PATENCY; Start 04/20/19 at 12:39; Stop 04/21/19 at 00:38; Status DC Info (PHARMACY MONITORING -- do not chart) 1 each PRN DAILY PRN MC SEE COMMENTS; Start 04/20/19 at 12:45; Status UNV Info (PHARMACY MONITORING -- do not chart) 1 each PRN DAILY PRN MC SEE COMMENTS; Start 04/20/19 at 12:45; Status UNV Lidocaine HCl (Xylocaine-Mpf 1% 2ml Vial) 2 ml 1X ONCE ID Last administered on 04/20/19at 13:02; Start 04/20/19 at 12:45; Stop 04/20/19 at 12:48; Status DC Topiramate (Topamax) 25 mg DAILY PO Last administered on 04/23/19at 10:49; Start 04/20/19 at 17:00 Warfarin Sodium (Coumadin) 7.5 mg 1X WARF ONCE PO Last administered on 04/21/19at 17:48; Start 04/21/19 at 16:00; Stop 04/21/19 at 16:01; Status DC Calcium Gluconate 1000 mg/Dextrose 110 ml @ 220 mls/hr 1X ONCE IV Last administered on 04/21/19at 13:19; Start 04/21/19 at 13:00; Stop 04/21/19 at 13:29; Status DC Sodium Chloride 250 ml @ 250 mls/hr 1X ONCE IV Last administered on 04/21/19at 14:16; Start 04/21/19 at 14:00; Stop 04/21/19 at 14:59; Status DC Sodium Chloride 1,000 ml @ 1,000 mls/hr Q1H PRN IV hypotension; Start 04/22/19 at 07:11; Stop 04/22/19 at 13:10; Status DC Albumin Human 200 ml @ 200 mls/hr 1X PRN PRN IV Hypotension; Start 04/22/19 at 07:15; Stop 04/22/19 at 13:14; Status DC Sodium Chloride 1,000 ml @ 400 mls/hr Q2H30M PRN IV PATENCY; Start 04/22/19 at 07:11; Stop 04/22/19 at 19:10; Status DC Info (PHARMACY MONITORING -- do not chart) 1 each PRN DAILY PRN MC SEE COMMENTS; Start 04/22/19 at 07:15; Status UNV Info (PHARMACY MONITORING -- do not chart) 1 each PRN DAILY PRN MC SEE COMMENTS; Start 04/22/19 at 07:15; Status Cancel Polyethylene Glycol (miraLAX PACKET) 17 gm PRN DAILY PRN PO CONSTIPATION Last administered on 04/23/19at 10:50; Start 04/22/19 at 13:15 Docusate Sodium (Colace) 100 mg DAILY PO Last administered on 04/23/19at 10:50; Start 04/23/19 at 09:00 Warfarin Sodium (Coumadin) 10 mg 1X WARF ONCE PO Last administered on 04/22/19at 16:57; Start 04/22/19 at 16:00; Stop 04/22/19 at 16:01; Status DC Warfarin Sodium (Coumadin) 10 mg 1X WARF ONCE PO Last administered on 04/23/19at 15:40; Start 04/23/19 at 16:00; Stop 04/23/19 at 16:01; Status DC Lidocaine/ Prilocaine (Emla) 1 candice 1X PRN TP PAIN; Start 04/23/19 at 13:00; Stop 04/23/19 at 23:59; Status DC Sodium Chloride 1,000 ml @ 1,000 mls/hr Q1H PRN IV hypotension; Start 04/24/19 at 08:30; Stop 04/24/19 at 18:00 Diphenhydramine HCl (Benadryl) 25 mg 1X PRN PRN IV ITCHING; Start 04/24/19 at 08:30; Stop 04/24/19 at 18:00 Diphenhydramine HCl (Benadryl) 25 mg 1X PRN PRN IV ITCHING; Start 04/24/19 at 08:30; Stop 04/24/19 at 18:00 Sodium Chloride 1,000 ml @ 400 mls/hr Q2H30M PRN IV PATENCY; Start 04/24/19 at 08:30; Stop 04/24/19 at 18:00 Info (PHARMACY MONITORING -- do not chart) 1 each PRN DAILY PRN MC SEE COMMENTS; Start 04/24/19 at 08:30; Status UNV Lidocaine HCl (Xylocaine-Mpf 1% 2ml Vial) 0.5 ml 1X STAT ID Last administered on 04/24/19at 08:32; Start 04/24/19 at 08:20; Stop 04/24/19 at 08:30; Status DC Active Scripts Active Catapres (Clonidine Hcl) 0.1 Mg Tablet 0.1 Mg PO PRN Q6HRS PRN 30 Days Topamax (Topiramate) 25 Mg Tablet 25 Mg PO DAILY 30 Days Polyethylene Glycol 3350 17 Gm Powd.pack 17 Gm PO PRN DAILY PRN 30 Days Gabapentin 300 Mg Capsule 300 Mg PO QHS 30 Days Reported Coumadin (Warfarin Sodium) 7.5 Mg Tablet 1 Tab PO DAILY Hydrocodone-Apap 7.5-325 (Hydrocodone Bit/Acetaminophen) 1 Each Tablet 1 Tab PO BID PRN Fluticasone Propionate Nasal Capay (Fluticasone Propionate) 16 Gm Capay.susp 2 Capay NS DAILY Renvela (Sevelamer Carbonate) 800 Mg Tablet 800 Mg PO TIDWMEALS Ibuprofen 800 Mg Tablet 800 Mg PO PRN Q6HRS PRN Vitamin D3 (Cholecalciferol (Vitamin D3)) 2,000 Unit Tab.chew 1,000 Unit PO Ventolin Hfa Inhaler (Albuterol Sulfate) 18 Gm Hfa.aer.ad 2 Puff INH BID Amlodipine Besylate 5 Mg Tablet 5 Mg PO DAILY Nephro-Donovan Tablet (Folic Acid/Vitamin B Comp W-C) 0.8 Mg Tablet 0.8 Mg PO DAILY Sensipar (Cinacalcet Hcl) 30 Mg Tablet 30 Mg PO DAILY Low Dose Aspirin Ec (Aspirin) 81 Mg Tablet.dr 1 Tab PO DAILY Midodrine Hcl 5 Mg Tablet 5 Mg PO PRN PRN Levothyroxine Sodium 50 Mcg Tablet 50 Mcg PO DAILY Ranitidine Hcl 300 Mg Capsule 300 Mg PO BID Vitals/I & O Vital Sign - Last 24 Hours 04/23/19 04/23/19 04/23/19 04/23/19 13:42 14:50 18:00 19:32 Temp 98.7 98.3 98.7 98.3 Pulse 67 78 57 72 Resp 16 16 B/P (MAP) 128/60 96/43 (60) 150/56 81/36 (51) Pulse Ox 94 100 O2 Delivery Nasal Cannula Nasal Cannula O2 Flow Rate 2.0 2.5 04/23/19 04/23/19 04/23/19 04/23/19 19:43 20:00 20:28 22:20 Temp 98.2 98.2 Pulse 70 Resp 16 B/P (MAP) 109/51 (70) 107/43 (64) Pulse Ox 99 98 O2 Delivery Room Air Nasal Cannula Nasal Cannula O2 Flow Rate 2.0 2.0 2.0 04/24/19 04/24/19 04/24/19 03:52 07:00 08:00 Temp 98.3 97.9 98.3 97.9 Pulse 71 53 Resp 16 20 B/P (MAP) 89/30 (49) 113/50 (71) Pulse Ox 99 94 O2 Delivery Nasal Cannula Nasal Cannula Nasal Cannula O2 Flow Rate 2.0 2.0 2.0 Intake and Output 04/23/19 04/23/19 04/24/19 15:00 23:00 07:00 Intake Total 220 ml Output Total 0 ml 0 ml Balance 0 ml 0 ml 220 ml IVORY BURNS MD Apr 24, 2019 13:01
[2019-04-24] MEDS: TOPIRAMATE 25 MG TABLET. PO SCH (13:03)
[2019-04-24] MEDS: FLUTICASONE 50MCG/NASAL SPRAY 16GM BOTTLE. NS SCH (13:03)
[2019-04-24] MEDS: LACTOBACILLUS RHAMNOSUS GG 1 CAPSULE. PO SCH ×2 (13:03→20:18)
[2019-04-24] MEDS: CINACALCET HCL 30 MG TABLET PO SCH (13:03)
[2019-04-24] MEDS: ASPIRIN ENTERIC COATED 81 MG TABLET.DR. PO SCH (13:04)
[2019-04-24] MEDS: FOLIC/VIT B COMP W-C (RENAL) TABLET. PO SCH (13:04)
[2019-04-24 15:00] VITALS: BP 95/48
--- NOTE | 2019-04-24 15:02 | NUR ---
Pharmacy Warfarin Dosing Note S: Pharmacy consulted to assist with anticoagulation therapy O: ROSE CAMPOS is a 73 year old F with h/o VTE LABS: Last INR: 1.9 Last HGB: 10.1 Last HCT: 32.2 Last PLT: 117 Last dose of 10 mg given on 04/23/19 at 1540 Vitamin K given: Y 10 mg sub-q (04/18) A:INR of 1.9 is below desired range. Target range for this patient is: 2 - 3 P: Warfarin dose: 7.5 mg Today at 1600 Bridge Therapy: Heparin sub-q q8h Next INR due 04/25/19 Pharmacy anticoagulation service will continue to follow. KHUSHBU TORRES [facility], 04/24/19 0922
[2019-04-24] MEDS ORDERED: WARFARIN 7.5 MG TABLET. PO ONE (16:00)
[2019-04-24 19:35] VITALS: BP 127/42
[2019-04-24] MEDS: FAMOTIDINE 20 MG TABLET. PO SCH (20:18)
[2019-04-24] MEDS: DARBEPOETIN ALFA 60 MCG/0.3 ML DISP.SYRIN. SQ SCH (20:18)
[2019-04-24] MEDS: GABAPENTIN 300 MG CAPSULE. PO SCH (20:18)
[2019-04-24 23:00] VITALS: BP 93/47
[2019-04-25 03:20] VITALS: BP 104/44
[2019-04-25] MEDS: ACETAMINOPHEN 325 MG TABLET. PO PRN (05:32)
[2019-04-25] MEDS: LEVOTHYROXINE 100 MCG TABLET PO SCH (05:32)
[2019-04-25] MEDS: HEPARIN for SUB-Q USE 5,000 UNIT/ML VIAL. SQ SCH ×2 (05:37→13:32)
[2019-04-25 07:00] VITALS: BP 87/38
[2019-04-25] MEDS: SEVELAMER CARBONATE 800 MG TABLET. PO SCH ×3 (07:53→18:06)
[2019-04-25] MEDS: DOCUSATE SODIUM 100 MG CAPSULE. PO SCH (07:53)
[2019-04-25] MEDS: MIDODRINE 5 MG TABLET PO SCH ×3 (07:53→18:06)
[2019-04-25] MEDS: CINACALCET HCL 30 MG TABLET PO SCH (07:53)
[2019-04-25] MEDS: FOLIC/VIT B COMP W-C (RENAL) TABLET. PO SCH (07:53)
[2019-04-25] MEDS: TOPIRAMATE 25 MG TABLET. PO SCH (07:54)
[2019-04-25] MEDS: LACTOBACILLUS RHAMNOSUS GG 1 CAPSULE. PO SCH ×2 (07:54→20:36)
[2019-04-25] MEDS: FLUTICASONE 50MCG/NASAL SPRAY 16GM BOTTLE. NS SCH (07:54)
[2019-04-25] MEDS: ASPIRIN ENTERIC COATED 81 MG TABLET.DR. PO SCH (07:54)
--- NOTE | 2019-04-25 08:50 | PDOC ---
PROGRESS NOTES Subjective Subjective Patient feeling better eating well. Patient states she does not want detention. Objective Objective Vital Signs Date Time Temp Pulse Resp B/P (MAP) Pulse Ox O2 Delivery O2 Flow Rate FiO2 04/25/19 07:53 74 87/38 04/25/19 07:00 98.9 20 96 Nasal Cannula 2.0 98.9 Intake and Output 04/25/19 07:00 Intake Total 520 ml Balance 520 ml Intake Oral 520 ml # Bowel Movements 1 Physical Exam Abdomen: Normal bowel sounds Heart: Regular rate Extremities: Other (2+ edema) General: Alert Lungs: Clear to auscultation Assessment Assessment Problems Medical Problems: (1) Right lower lobe pneumonia Status: Acute acute hypercapnic respiratory failure encephalopathy, likely toxic and metabolic-resolved suspected aspiration pneumonia-improved sphenoid sinusitis per imaging ESRD on dialysis Bradycardia right pleural effusion - thoracentesis done 04/19 with 950 cc removed coagulopathy - resume subQ heparin until INR therapeutic HTN anemia of chronic renal disease gram positive tina lactobacillus sp. bacteremia tremor - essential type debility hypocalcemia Plan Plan of Care Continue renal and pulm care To SNU or home with HH Friday Continue antibx Monitor BP Comment Review of Relevant I have reviewed the following items gloria (where applicable) has been applied. Labs Laboratory Tests Test 04/23/19 09:35 04/23/19 12:17 04/23/19 17:09 04/23/19 20:36 Prothrombin Time 17.3 SEC (11.7-14.0) Prothromb Time International Ratio 1.4 (0.8-1.1) Glucose (Fingerstick) 122 mg/dL (70-99) 104 mg/dL (70-99) 102 mg/dL (70-99) Test 04/24/19 07:47 04/24/19 08:30 04/24/19 13:04 04/24/19 17:14 Glucose (Fingerstick) 97 mg/dL (70-99) 70 mg/dL (70-99) 110 mg/dL (70-99) Prothrombin Time 21.3 SEC (11.7-14.0) Prothromb Time International Ratio 1.9 (0.8-1.1) Test 04/24/19 20:35 04/25/19 07:35 Glucose (Fingerstick) 116 mg/dL (70-99) 86 mg/dL (70-99) Laboratory Tests Test 04/24/19 13:04 04/24/19 17:14 04/24/19 20:35 04/25/19 07:35 Glucose (Fingerstick) 70 mg/dL (70-99) 110 mg/dL (70-99) 116 mg/dL (70-99) 86 mg/dL (70-99) Microbiology 04/19/19 Anaerobic/Aerobic Culture - Final, Complete 04/19/19 Anaerobic Culture Result 1 (BLACK) - Final, Complete 04/19/19 Aerobic Culture - Final, Complete 04/19/19 Aerobic Culture Result 1 (BLACK) - Final, Complete 04/19/19 Gram Stain - Final, Complete 04/19/19 Gram Stain Result 1 (BLACK) - Final, Complete 04/19/19 Gram Stain Result 2 (BLACK) - Final, Complete 04/14/19 Blood Culture - Final, Complete NO GROWTH AFTER 5 DAYS Medications Current Medications Levofloxacin/ Dextrose (Levaquin Per Pharmacy) 1 each PRN DAILY PRN MC SEE COMMENTS; Start 04/14/19 at 13:15; Stop 04/14/19 at 15:43; Status DC Vancomycin HCl (Vanco Per Pharmacy) 1 each PRN DAILY PRN MC SEE COMMENTS Last administered on 04/16/19at 08:56; Start 04/14/19 at 13:15; Stop 04/16/19 at 14:44; Status DC Vancomycin HCl 2 gm/Sodium Chloride 500 ml @ 250 mls/hr 1X ONCE IV Last administered on 04/14/19at 18:29; Start 04/14/19 at 13:30; Stop 04/14/19 at 15:29; Status DC Levofloxacin/ Dextrose 100 ml @ 100 mls/hr 1X ONCE IV Last administered on 04/14/19at 13:54; Start 04/14/19 at 13:45; Stop 04/14/19 at 14:44; Status DC Levofloxacin/ Dextrose 100 ml @ 100 mls/hr Q48H IV ; Start 04/16/19 at 14:00; Status Cancel Acetaminophen (Tylenol) 650 mg PRN Q4HRS PRN PO TEMP OVER 100.4F OR MILD PAIN Last administered on 04/25/19at 05:32; Start 04/14/19 at 15:45 Al Hydroxide/Mg Hydroxide (Mylanta Plus Xs) 30 ml PRN DAILY PRN PO HEARTBURN / GAS; Start 04/14/19 at 15:45 Clonidine HCl (Catapres) 0.1 mg PRN Q6HRS PRN PO SBP>160 OR DBP>90; Start 04/14/19 at 15:45 Docusate Sodium (Colace) 100 mg PRN BID PRN PO HARD STOOLS Last administered on 04/19/19at 12:39; Start 04/14/19 at 15:45 Enoxaparin Sodium (Lovenox 40mg Syringe) 40 mg Q24H SQ ; Start 04/14/19 at 18:00; Status Cancel Heparin Sodium (Porcine) (Heparin Sodium) 5,000 unit Q8HRS SQ Last administered on 04/17/19 14:16; Start 04/14/19 at 22:00; Stop 04/17/19 at 20:21; Status DC Amlodipine Besylate (Norvasc) 5 mg DAILY PO Last administered on 04/16/19 11:4 2; Start 04/14/19 at 17:30; Stop 04/17/19 at 10:28; Status DC Aspirin (Ecotrin) 81 mg DAILY PO Last administered on 04/25/19 07:54; Start 04/14/19 at 17:30 Cinacalcet (Sensipar) 30 mg DAILY PO Last administered on 04/25/19 07:53; Start 04/14/19 at 17:30 Fluticasone Propionate (Flonase) 2 spray DAILY NS Last administered on 04/25/19 07:54; Start 04/14/19 at 17:30 Vitamin B Complex/ Vitamin C (Sandra-Donovan) 1 tab DAILY PO Last administered on 04/25/19 07:53; Start 04/14/19 at 17:30 Gabapentin (Neurontin) 300 mg QHS PO Last administered on 04/24/19 20:18; Start 04/14/19 at 21:00 Levothyroxine Sodium (Synthroid) 50 mcg DAILY PO ; Start 04/14/19 at 17:00; Stop 04/15/19 at 08:38; Status DC Midodrine (Proamatine) 5 mg QGF079 PO Last administered on 04/25/19 07:53; Start 04/14/19 at 18:00 Sevelamer Carbonate (Renvela) 800 mg TIDWMEALS PO Last administered on 04/25/19at 07:53; Start 04/14/19 at 17:30 Warfarin Sodium (Coumadin) 7.5 mg DAILY16 PO Last administered on 04/14/19at 17:35; Start 04/14/19 at 17:11; Stop 04/15/19 at 10:15; Status DC Albuterol Sulfate (Ventolin Neb Soln) 2.5 mg RTBID NEB Last administered on 04/24/19at 19:49; Start 04/14/19 at 20:00 Famotidine (Pepcid) 20 mg Q48H PO Last administered on 04/24/19at 20:18; Start 04/14/19 at 21:00 Warfarin Sodium (Coumadin Per Pharmacy) 1 each PRN DAILY PRN MC SEE COMMENTS Last administered on 04/16/19at 09:08; Start 04/14/19 at 17:15; Stop 04/16/19 at 12:48; Status DC Dextrose (Dextrose 50%-Water Syringe) 12.5 gm PRN Q15MIN PRN IV SEE COMMENTS Last administered on 04/15/19at 14:10; Start 04/14/19 at 17:15 Vancomycin HCl (Vancomycin Random Level) 1 each 1X ONCE MC ; Start 04/17/19 at 06:00; Stop 04/16/19 at 14:47; Status DC Sodium Bicarbonate (Sodium Bicarb Adult 8.4% Syr) 100 meq 1X ONCE IV Last administered on 04/14/19at 20:09; Start 04/14/19 at 20:00; Stop 04/14/19 at 20:05; Status DC Sodium Chloride 1,000 ml @ 1,000 mls/hr Q1H PRN IV hypotension; Start 04/15/19 at 07:35; Stop 04/15/19 at 13:34; Status DC Albumin Human 200 ml @ 200 mls/hr 1X PRN PRN IV Hypotension; Start 04/15/19 at 07:45; Stop 04/15/19 at 13:44; Status DC Acetaminophen (Tylenol) 500 mg 1X PRN PRN PO MILD PAIN / TEMP; Start 04/15/19 at 07:45; Stop 04/16/19 at 07:44; Status DC Diphenhydramine HCl (Benadryl) 25 mg 1X PRN PRN IV ITCHING; Start 04/15/19 at 07:45; Stop 04/16/19 at 07:44; Status DC Diphenhydramine HCl (Benadryl) 25 mg 1X PRN PRN IV ITCHING; Start 04/15/19 at 07:45; Stop 04/16/19 at 07:44; Status DC Sodium Chloride 1,000 ml @ 400 mls/hr Q2H30M PRN IV PATENCY; Start 04/15/19 at 07:35; Stop 04/15/19 at 19:34; Status DC Info (PHARMACY MONITORING -- do not chart) 1 each PRN DAILY PRN MC SEE COMMENTS; Start 04/15/19 at 07:45; Status Cancel Info (PHARMACY MONITORING -- do not chart) 1 each PRN DAILY PRN MC SEE COMMENTS; Start 04/15/19 at 07:45; Status UNV Lidocaine HCl (Xylocaine-Mpf 1% 2ml Vial) 2 ml 1X ONCE INJ ; Start 04/15/19 at 07:45; Stop 04/15/19 at 07:52; Status DC Levothyroxine Sodium (Synthroid) 100 mcg DAILY06 PO Last administered on 04/25/19at 05:32; Start 04/15/19 at 09:00 Piperacillin Sod/ Tazobactam Sod 2.25 gm/Sodium Chloride 50 ml @ 100 mls/hr Q8HRS IV ; Start 04/15/19 at 12:00; Status Cancel Piperacillin Sod/ Tazobactam Sod (Zosyn Per Pharmacy) 1 each PRN DAILY PRN MC SEE COMMENTS; Start 04/15/19 at 10:30; Stop 04/16/19 at 14:44; Status DC Piperacillin Sod/ Tazobactam Sod 2.25 gm/Sodium Chloride 50 ml @ 100 mls/hr Q8H IV Last administered on 04/16/19at 11:42; Start 04/15/19 at 11:00; Stop 04/16/19 at 14:44; Status DC Amoxicillin/ Clavulanate Potassium (Augmentin 500/ 125mg) 1 tab DAILY PO ; Start 04/16/19 at 14:45; Stop 04/16/19 at 15:23; Status DC Piperacillin Sod/ Tazobactam Sod 2.25 gm/Sodium Chloride 50 ml @ 100 mls/hr Q8HRS IV Last administered on 04/21/19at 05:02; Start 04/16/19 at 16:00; Stop 04/21/19 at 07:10; Status DC Vancomycin HCl (Vanco Per Pharmacy) 1 each PRN DAILY PRN MC SEE COMMENTS Last administered on 04/20/19at 11:28; Start 04/16/19 at 15:30; Stop 04/21/19 at 07:10; Status DC Vancomycin HCl (Vancomycin Random Level) 1 each 1X ONCE MC Last administered on 04/17/19at 06:00; Start 04/17/19 at 06:00; Stop 04/17/19 at 06:01; Status DC Lactobacillus Rhamnosus (Culturelle) 1 cap BID PO Last administered on 04/25/19at 07:54; Start 04/16/19 at 21:00 Sodium Chloride 1,000 ml @ 1,000 mls/hr Q1H PRN IV hypotension; Start 04/17/19 at 07:15; Stop 04/17/19 at 13:14; Status DC Acetaminophen (Tylenol) 500 mg 1X PRN PRN PO MILD PAIN / TEMP; Start 04/17/19 at 07:15; Stop 04/18/19 at 07:14; Status DC Sodium Chloride 1,000 ml @ 400 mls/hr Q2H30M PRN IV PATENCY; Start 04/17/19 at 07:15; Stop 04/17/19 at 19:14; Status DC Info (PHARMACY MONITORING -- do not chart) 1 each PRN DAILY PRN MC SEE COMMENTS; Start 04/17/19 at 07:15; Status UNV Info (PHARMACY MONITORING -- do not chart) 1 each PRN DAILY PRN MC SEE COMMENTS; Start 04/17/19 at 07:15 Vancomycin HCl 500 mg/Sodium Chloride 100 ml @ 100 mls/hr QTUTHSA IV Last administered on 04/20/19at 18:22; Start 04/20/19 at 16:00; Stop 04/21/19 at 07:10; Status DC Vancomycin HCl 1 gm/Sodium Chloride 250 ml @ 250 mls/hr 1X ONCE IV Last administered on 04/17/19at 14:50; Start 04/17/19 at 15:00; Stop 04/17/19 at 15:59; Status DC Darbepoetin Andriy (ARANESP for DIALYSIS PTS) 60 mcg Sa SQ Last administered on 04/24/19at 20:18; Start 04/17/19 at 21:00 Phytonadione (Vitamin K Ampule) 10 mg 1X ONCE SQ Last administered on 04/18/19at 11:50; Start 04/18/19 at 10:00; Stop 04/18/19 at 15:10; Status DC Phytonadione 10 mg/Dextrose 51 ml @ 102 mls/hr 1X ONCE IV ; Start 04/18/19 at 13:45; Stop 04/18/19 at 15:10; Status DC Warfarin Sodium (Coumadin Per Pharmacy) 1 each PRN DAILY PRN MC SEE COMMENTS Last administered on 04/24/19at 15:01; Start 04/19/19 at 16:00 Warfarin Sodium (Coumadin) 7.5 mg 1X WARF ONCE PO Last administered on 04/19/19at 17:42; Start 04/19/19 at 16:30; Stop 04/19/19 at 16:31; Status DC Heparin Sodium (Porcine) (Heparin Sodium) 5,000 unit Q8HRS SQ Last administered on 04/25/19at 05:37; Start 04/20/19 at 14:00 Sodium Chloride 250 ml @ 250 mls/hr 1X ONCE IV Last administered on 04/20/19at 11:57; Start 04/20/19 at 11:30; Stop 04/20/19 at 12:29; Status DC Warfarin Sodium (Coumadin) 7.5 mg 1X WARF ONCE PO Last administered on 04/20/19at 17:25; Start 04/20/19 at 16:00; Stop 04/20/19 at 16:01; Status DC Sodium Chloride 1,000 ml @ 1,000 mls/hr Q1H PRN IV hypotension; Start 04/20/19 at 12:39; Stop 04/20/19 at 18:38; Status DC Sodium Chloride 1,000 ml @ 400 mls/hr Q2H30M PRN IV PATENCY; Start 04/20/19 at 12:39; Stop 04/21/19 at 00:38; Status DC Info (PHARMACY MONITORING -- do not chart) 1 each PRN DAILY PRN MC SEE COMMENTS; Start 04/20/19 at 12:45; Status UNV Info (PHARMACY MONITORING -- do not chart) 1 each PRN DAILY PRN MC SEE COMMENTS; Start 04/20/19 at 12:45; Status UNV Lidocaine HCl (Xylocaine-Mpf 1% 2ml Vial) 2 ml 1X ONCE ID Last administered on 04/20/19at 13:02; Start 04/20/19 at 12:45; Stop 04/20/19 at 12:48; Status DC Topiramate (Topamax) 25 mg DAILY PO Last administered on 04/25/19at 07:54; Start 04/20/19 at 17:00 Warfarin Sodium (Coumadin) 7.5 mg 1X WARF ONCE PO Last administered on 04/21/19at 17:48; Start 04/21/19 at 16:00; Stop 04/21/19 at 16:01; Status DC Calcium Gluconate 1000 mg/Dextrose 110 ml @ 220 mls/hr 1X ONCE IV Last administered on 04/21/19at 13:19; Start 04/21/19 at 13:00; Stop 04/21/19 at 13:29; Status DC Sodium Chloride 250 ml @ 250 mls/hr 1X ONCE IV Last administered on 04/21/19at 14:16; Start 04/21/19 at 14:00; Stop 04/21/19 at 14:59; Status DC Sodium Chloride 1,000 ml @ 1,000 mls/hr Q1H PRN IV hypotension; Start 04/22/19 at 07:11; Stop 04/22/19 at 13:10; Status DC Albumin Human 200 ml @ 200 mls/hr 1X PRN PRN IV Hypotension; Start 04/22/19 at 07:15; Stop 04/22/19 at 13:14; Status DC Sodium Chloride 1,000 ml @ 400 mls/hr Q2H30M PRN IV PATENCY; Start 04/22/19 at 07:11; Stop 04/22/19 at 19:10; Status DC Info (PHARMACY MONITORING -- do not chart) 1 each PRN DAILY PRN MC SEE COMMENTS; Start 04/22/19 at 07:15; Status UNV Info (PHARMACY MONITORING -- do not chart) 1 each PRN DAILY PRN MC SEE COMMENTS; Start 04/22/19 at 07:15; Status Cancel Polyethylene Glycol (miraLAX PACKET) 17 gm PRN DAILY PRN PO CONSTIPATION Last administered on 04/23/19at 10:50; Start 04/22/19 at 13:15 Docusate Sodium (Colace) 100 mg DAILY PO Last administered on 04/25/19at 07:53; Start 04/23/19 at 09:00 Warfarin Sodium (Coumadin) 10 mg 1X WARF ONCE PO Last administered on 04/22/19at 16:57; Start 04/22/19 at 16:00; Stop 04/22/19 at 16:01; Status DC Warfarin Sodium (Coumadin) 10 mg 1X WARF ONCE PO Last administered on 04/23/19at 15:40; Start 04/23/19 at 16:00; Stop 04/23/19 at 16:01; Status DC Lidocaine/ Prilocaine (Emla) 1 candice 1X PRN TP PAIN; Start 04/23/19 at 13:00; Stop 04/23/19 at 23:59; Status DC Sodium Chloride 1,000 ml @ 1,000 mls/hr Q1H PRN IV hypotension; Start 04/24/19 at 08:30; Stop 04/24/19 at 18:00; Status DC Diphenhydramine HCl (Benadryl) 25 mg 1X PRN PRN IV ITCHING; Start 04/24/19 at 08:30; Stop 04/24/19 at 18:00; Status DC Diphenhydramine HCl (Benadryl) 25 mg 1X PRN PRN IV ITCHING; Start 04/24/19 at 08:30; Stop 04/24/19 at 18:00; Status DC Sodium Chloride 1,000 ml @ 400 mls/hr Q2H30M PRN IV PATENCY; Start 04/24/19 at 08:30; Stop 04/24/19 at 18:00; Status DC Info (PHARMACY MONITORING -- do not chart) 1 each PRN DAILY PRN MC SEE COMMENTS; Start 04/24/19 at 08:30; Status UNV Lidocaine HCl (Xylocaine-Mpf 1% 2ml Vial) 0.5 ml 1X STAT ID Last administered on 04/24/19at 08:32; Start 04/24/19 at 08:20; Stop 04/24/19 at 08:30; Status DC Warfarin Sodium (Coumadin) 7.5 mg 1X WARF ONCE PO Last administered on 04/24/19at 16:38; Start 04/24/19 at 16:00; Stop 04/24/19 at 16:01; Status DC Active Scripts Active Catapres (Clonidine Hcl) 0.1 Mg Tablet 0.1 Mg PO PRN Q6HRS PRN 30 Days Topamax (Topiramate) 25 Mg Tablet 25 Mg PO DAILY 30 Days Polyethylene Glycol 3350 17 Gm Powd.pack 17 Gm PO PRN DAILY PRN 30 Days Gabapentin 300 Mg Capsule 300 Mg PO QHS 30 Days Reported Coumadin (Warfarin Sodium) 7.5 Mg Tablet 1 Tab PO DAILY Hydrocodone-Apap 7.5-325 (Hydrocodone Bit/Acetaminophen) 1 Each Tablet 1 Tab PO BID PRN Fluticasone Propionate Nasal [place] (Fluticasone Propionate) 16 Gm [place].susp 2 [place] NS DAILY Renvela (Sevelamer Carbonate) 800 Mg Tablet 800 Mg PO TIDWMEALS Ibuprofen 800 Mg Tablet 800 Mg PO PRN Q6HRS PRN Vitamin D3 (Cholecalciferol (Vitamin D3)) 2,000 Unit Tab.chew 1,000 Unit PO Ventolin Hfa Inhaler (Albuterol Sulfate) 18 Gm Hfa.aer.ad 2 Puff INH BID Amlodipine Besylate 5 Mg Tablet 5 Mg PO DAILY Nephro-Donovan Tablet (Folic Acid/Vitamin B Comp W-C) 0.8 Mg Tablet 0.8 Mg PO DAILY Sensipar (Cinacalcet Hcl) 30 Mg Tablet 30 Mg PO DAILY Low Dose Aspirin Ec (Aspirin) 81 Mg Tablet.dr 1 Tab PO DAILY Midodrine Hcl 5 Mg Tablet 5 Mg PO PRN PRN Levothyroxine Sodium 50 Mcg Tablet 50 Mcg PO DAILY Ranitidine Hcl 300 Mg Capsule 300 Mg PO BID Vitals/I & O Vital Sign - Last 24 Hours 04/24/19 04/24/19 04/24/19 04/24/19 13:04 15:00 16:36 19:35 Temp 97.9 98.1 97.9 98.1 Pulse 57 63 63 54 Resp 20 B/P (MAP) 113/50 95/48 (64) 95/48 127/42 (70) Pulse Ox 98 97 O2 Delivery Nasal Cannula Nasal Cannula O2 Flow Rate 2.0 2.0 04/24/19 04/24/19 04/24/19 04/25/19 19:51 20:00 23:00 03:20 Temp 98.6 98.6 98.6 98.6 Pulse 60 58 Resp 18 18 B/P (MAP) 93/47 (62) 104/44 (64) Pulse Ox 95 96 97 O2 Delivery Nasal Cannula Nasal Cannula Nasal Cannula Nasal Cannula O2 Flow Rate 2.0 2.0 2.0 2.0 04/25/19 04/25/19 07:00 07:53 Temp 98.9 98.9 Pulse 58 74 Resp 20 B/P (MAP) 87/38 (54) 87/38 Pulse Ox 96 O2 Delivery Nasal Cannula O2 Flow Rate 2.0 Intake and Output 04/24/19 04/24/19 04/25/19 15:00 23:00 07:00 Intake Total 520 ml Balance 520 ml IVORY BURNS MD Apr 25, 2019 08:50
[2019-04-25] MEDS: ALBUTEROL SULFATE 2.5 MG/3 ML NEBU. NEB SCH ×2 (09:17→20:00)
--- NOTE | 2019-04-25 10:30 | PDOC ---
PULMONARY PROGRESS NOTES Subjective Resting in bed on N/C denies SOA. Denies cough. Reports she doesn't want to go to SNF Vitals Vital Signs Date Time Temp Pulse Resp B/P (MAP) Pulse Ox O2 Delivery O2 Flow Rate FiO2 04/25/19 09:18 Nasal Cannula 2.0 04/25/19 07:53 74 87/38 04/25/19 07:00 98.9 20 96 98.9 ROS: No Nausea, No Chest Pain, No Abdominal Pain, No Increase Cough General: Alert, No acute distress Lungs: Other (decrease bases) Cardiovascular: S1, S2 Abdomen: Soft, Other (obese) Extremities: Other (+1BLE edema ) Impression 04/19/19: CXR:IMPRESSION: Improved right pleural effusion with small residual pleural fluid with adjacent compressive atelectasis versus infiltrate. No pneumothorax. 04/19/19:CT Chest :Impression:Moderate to large right pleural effusion with adjacent lower lobe atelectatic consolidation. Small left pleural effusion. Labs Laboratory Tests Test 04/23/19 12:17 04/23/19 17:09 04/23/19 20:36 04/24/19 07:47 Glucose (Fingerstick) 122 mg/dL (70-99) 104 mg/dL (70-99) 102 mg/dL (70-99) 97 mg/dL (70-99) Test 04/24/19 08:30 04/24/19 13:04 04/24/19 17:14 04/24/19 20:35 Prothrombin Time 21.3 SEC (11.7-14.0) Prothromb Time International Ratio 1.9 (0.8-1.1) Glucose (Fingerstick) 70 mg/dL (70-99) 110 mg/dL (70-99) 116 mg/dL (70-99) Test 04/25/19 07:35 Glucose (Fingerstick) 86 mg/dL (70-99) Laboratory Tests Test 04/24/19 13:04 04/24/19 17:14 04/24/19 20:35 04/25/19 07:35 Glucose (Fingerstick) 70 mg/dL (70-99) 110 mg/dL (70-99) 116 mg/dL (70-99) 86 mg/dL (70-99) Medications Active Scripts Medications Dose Route/Sig Max Daily Dose Days Date Category Gabapentin 300 Mg Capsule 300 Mg PO QHS 30 01/25/19 Rx Coumadin (Warfarin Sodium) 7.5 Mg Tablet 1 Tab PO DAILY 03/13/18 Reported Hydrocodone-Apap 7.5-325 (Hydrocodone Bit/Acetaminophen) 1 Each Tablet 1 Tab PO BID PRN 05/06/17 Reported Fluticasone Propionate Nasal [place] (Fluticasone Propionate) 16 Gm [place].susp 2 [place] NS DAILY 05/06/17 Reported Renvela (Sevelamer Carbonate) 800 Mg Tablet 800 Mg PO TIDWMEALS 05/06/17 Reported Ibuprofen 800 Mg Tablet 800 Mg PO PRN Q6HRS PRN 05/06/17 Reported Vitamin D3 (Cholecalciferol (Vitamin D3)) 2,000 Unit Tab.chew 1,000 Unit PO 05/06/17 Reported Ventolin Hfa Inhaler (Albuterol Sulfate) 18 Gm Hfa.aer.ad 2 Puff INH BID 05/06/17 Reported Amlodipine Besylate 5 Mg Tablet 5 Mg PO DAILY 05/06/17 Reported Nephro-Donovan Tablet (Folic Acid/Vitamin B Comp W-C) 0.8 Mg Tablet 0.8 Mg PO DAILY 12/20/16 Reported Sensipar (Cinacalcet Hcl) 30 Mg Tablet 30 Mg PO DAILY 12/20/16 Reported Low Dose Aspirin Ec (Aspirin) 81 Mg Tablet.dr 1 Tab PO DAILY 03/09/14 Reported Midodrine Hcl 5 Mg Tablet 5 Mg PO PRN PRN 03/09/14 Reported Levothyroxine Sodium 50 Mcg Tablet 50 Mcg PO DAILY 03/09/14 Reported Ranitidine Hcl 300 Mg Capsule 300 Mg PO BID 03/09/14 Reported Impression . 1. Acute respiratory failure secondary to combined metabolic and respiratory acidosis, pleural effusion----improved 2. Encephalopathy, contributed by hypercapnia. Hypothyroidism may have contributed in that as well ---resolved 3. Abnormal chest x-ray consistent with congestive heart failure with vascular markings been prominent and right lower lobe effusion along with cardiomegaly. 4. Morbid obesity needs to be ruled out for sleep apnea as an outpatient. I would recommend doing a sleep study outpatient. 5. Hypothyroidism with an elevated TSH level, recs per IM and follow up per PCP 6. BACTEREMIA BC + Lactobacillus species Plan . 1. cont. supplemental oxygen/ nebs PRN 2. cont. Coumadin and heparin bridge, INR on 04/24/19 was 1.9 INR for today is pending, pharmacy to manage Coumadin 3. completed full course of antibiotics 4. cont HD and other recs per nephrology 5.s/p right thoracentesis on 04/19/19 , 950 cc removed 6. D/W RN Ok to D/C OR TRANSFER from our standpoint Thank you RANDALL SNIDER MD Apr 25, 2019 10:30
[2019-04-25 11:04] VITALS: BP 103/48
[2019-04-25 15:09] VITALS: BP 133/42
--- NOTE | 2019-04-25 16:49 | NUR ---
Pharmacy Warfarin Dosing Note S: Pharmacy consulted to assist with anticoagulation therapy O: ROSE CAMPOS is a 73 year old F with h/o VTE LABS: Last INR: 1.9 (04/24) Last HGB: 10.1 Last HCT: 32.2 Last PLT: 117 Last dose of 7.5 mg given on 04/24/19 at 1540 Vitamin K given: 10 mg sub-q (04/18) A:INR of 1.9 (04/24) is below desired range. INR not drawn by lab today after several attempts by pharmacy to request this. Target range for this patient is: 2 - 3; INR likely at goal or close, will D/C sub-q heparin. P: Warfarin dose: 7.5 mg Today at 1600 Next INR due 04/26/17 Pharmacy anticoagulation service will continue to follow. [facility]USHBU TORRES [facility], 04/25/19 [id number]
[2019-04-25] MEDS ORDERED: WARFARIN 7.5 MG TABLET. PO ONE (17:00)
[2019-04-25 19:35] VITALS: BP 116/51
[2019-04-25] MEDS: GABAPENTIN 300 MG CAPSULE. PO SCH (20:36)
[2019-04-25 22:30] VITALS: BP 90/41
[2019-04-26 03:10] VITALS: BP 64/32
[2019-04-26] MEDS: MIDODRINE 5 MG TABLET PO SCH ×2 (03:22→13:47)
[2019-04-26] MEDS: LEVOTHYROXINE 100 MCG TABLET PO SCH (03:23)
[2019-04-26 03:30] VITALS: BP 90/30
[2019-04-26 04:00] VITALS: BP 92/37
--- NOTE | 2019-04-26 04:10 | NUR ---
Pt's. blood pressure with 0300 vitals was found to be 64/32. Pt. placed in Trendelenburg and given midodrine early. Pt. alert and oriented. Not complaining of dizziness or any other hypotensive symptoms. At 0410 blood pressure now 92/37. Pt. resting quietly. No current needs. Will continue to monitor.
[2019-04-26 04:42] LABS: PROTHROMBIN TIME PATIENT 23.3 SEC (11.7-14.0)
[2019-04-26 07:00] VITALS: BP 99/34
[2019-04-26] MEDS: ALBUTEROL SULFATE 2.5 MG/3 ML NEBU. NEB SCH (08:38)
[2019-04-26] MEDS: SEVELAMER CARBONATE 800 MG TABLET. PO SCH ×2 (09:17→13:47)
[2019-04-26] MEDS: FLUTICASONE 50MCG/NASAL SPRAY 16GM BOTTLE. NS SCH (09:18)
[2019-04-26] MEDS: FOLIC/VIT B COMP W-C (RENAL) TABLET. PO SCH (09:18)
[2019-04-26] MEDS: LACTOBACILLUS RHAMNOSUS GG 1 CAPSULE. PO SCH (09:18)
[2019-04-26] MEDS: DOCUSATE SODIUM 100 MG CAPSULE. PO SCH (09:18)
[2019-04-26] MEDS: TOPIRAMATE 25 MG TABLET. PO SCH (09:18)
[2019-04-26] MEDS: CINACALCET HCL 30 MG TABLET PO SCH (09:18)
[2019-04-26] MEDS: ASPIRIN ENTERIC COATED 81 MG TABLET.DR. PO SCH (09:18)
--- NOTE | 2019-04-26 10:00 | PDOC ---
PULMONARY PROGRESS NOTES Subjective NO NEW COMPLAINTS Vitals Vital Signs Date Time Temp Pulse Resp B/P (MAP) Pulse Ox O2 Delivery O2 Flow Rate FiO2 04/26/19 08:38 98 Nasal Cannula 2.0 04/26/19 07:00 97.7 74 20 99/34 (55) 97.7 ROS: No Nausea, No Chest Pain, No Abdominal Pain, No Increase Cough General: Alert, No acute distress Lungs: Other (decrease bases) Cardiovascular: S1, S2 Abdomen: Soft, Other (obese) Extremities: Other (+1BLE edema ) Impression 04/19/19: CXR:IMPRESSION: Improved right pleural effusion with small residual pleural fluid with adjacent compressive atelectasis versus infiltrate. No pneumothorax. 04/19/19:CT Chest :Impression:Moderate to large right pleural effusion with adjacent lower lobe atelectatic consolidation. Small left pleural effusion. Labs Laboratory Tests Test 04/24/19 13:04 04/24/19 17:14 04/24/19 20:35 04/25/19 07:35 Glucose (Fingerstick) 70 mg/dL (70-99) 110 mg/dL (70-99) 116 mg/dL (70-99) 86 mg/dL (70-99) Test 04/25/19 11:16 04/25/19 16:51 04/25/19 20:30 04/26/19 03:45 Glucose (Fingerstick) 96 mg/dL (70-99) 112 mg/dL (70-99) 112 mg/dL (70-99) Prothrombin Time 23.3 SEC (11.7-14.0) Prothromb Time International Ratio 2.1 (0.8-1.1) Test 04/26/19 07:08 Glucose (Fingerstick) 70 mg/dL (70-99) Laboratory Tests Test 04/25/19 11:16 04/25/19 16:51 04/25/19 20:30 04/26/19 03:45 Glucose (Fingerstick) 96 mg/dL (70-99) 112 mg/dL (70-99) 112 mg/dL (70-99) Prothrombin Time 23.3 SEC (11.7-14.0) Prothromb Time International Ratio 2.1 (0.8-1.1) Test 04/26/19 07:08 Glucose (Fingerstick) 70 mg/dL (70-99) Medications Active Scripts Medications Dose Route/Sig Max Daily Dose Days Date Category Gabapentin 300 Mg Capsule 300 Mg PO QHS 30 01/25/19 Rx Coumadin (Warfarin Sodium) 7.5 Mg Tablet 1 Tab PO DAILY 03/13/18 Reported Hydrocodone-Apap 7.5-325 (Hydrocodone Bit/Acetaminophen) 1 Each Tablet 1 Tab PO BID PRN 05/06/17 Reported Fluticasone Propionate Nasal [place] (Fluticasone Propionate) 16 Gm [place].susp 2 [place] NS DAILY 05/06/17 Reported Renvela (Sevelamer Carbonate) 800 Mg Tablet 800 Mg PO TIDWMEALS 05/06/17 Reported Ibuprofen 800 Mg Tablet 800 Mg PO PRN Q6HRS PRN 05/06/17 Reported Vitamin D3 (Cholecalciferol (Vitamin D3)) 2,000 Unit Tab.chew 1,000 Unit PO 05/06/17 Reported Ventolin Hfa Inhaler (Albuterol Sulfate) 18 Gm Hfa.aer.ad 2 Puff INH BID 05/06/17 Reported Amlodipine Besylate 5 Mg Tablet 5 Mg PO DAILY 05/06/17 Reported Nephro-Donovan Tablet (Folic Acid/Vitamin B Comp W-C) 0.8 Mg Tablet 0.8 Mg PO DAILY 12/20/16 Reported Sensipar (Cinacalcet Hcl) 30 Mg Tablet 30 Mg PO DAILY 12/20/16 Reported Low Dose Aspirin Ec (Aspirin) 81 Mg Tablet.dr 1 Tab PO DAILY 03/09/14 Reported Midodrine Hcl 5 Mg Tablet 5 Mg PO PRN PRN 03/09/14 Reported Levothyroxine Sodium 50 Mcg Tablet 50 Mcg PO DAILY 03/09/14 Reported Ranitidine Hcl 300 Mg Capsule 300 Mg PO BID 03/09/14 Reported Impression . 1. Acute respiratory failure secondary to combined metabolic and respiratory acidosis, pleural effusion----improved 2. Encephalopathy, contributed by hypercapnia. Hypothyroidism may have contributed in that as well ---resolved 3. Abnormal chest x-ray consistent with congestive heart failure with vascular markings been prominent and right lower lobe effusion along with cardiomegaly. 4. Morbid obesity needs to be ruled out for sleep apnea as an outpatient. I would recommend doing a sleep study outpatient. 5. Hypothyroidism with an elevated TSH level, recs per IM and follow up per PCP 6. BACTEREMIA BC + Lactobacillus species Plan . OK TO TRANSFER D/W SS 04/25 1. cont. supplemental oxygen/ nebs PRN 2. cont. Coumadin and heparin bridge, INR on 04/24/19 was 1.9 INR for today is pending, pharmacy to manage Coumadin 3. completed full course of antibiotics 4. cont HD and other recs per nephrology 5.s/p right thoracentesis on 04/19/19 , 950 cc removed 6. D/W RN Ok to D/C OR TRANSFER from our standpoint Thank you RANDALL SNIDER MD Apr 26, 2019 10:00
[2019-04-26 10:23] VITALS: BP 113/49
--- NOTE | 2019-04-26 11:43 | PDOC ---
SUBJECTIVE ROS Stable , having Lunch , OBJECTIVE Vital Signs Vital Signs Date Time Temp Pulse Resp B/P (MAP) Pulse Ox O2 Delivery O2 Flow Rate FiO2 04/26/19 10:23 98.2 75 20 113/49 (70) 96 Nasal Cannula 2.0 98.2 I & 0 Intake and Output 04/26/19 07:00 Intake Total 200 ml Balance 200 ml Intake Oral 200 ml PHYSICAL EXAM Physical Exam GENERAL: NAD HEENT:Oropharynx pink and moist. NECK: Supple. LUNGS: Clear to auscultation. HEART: S1, S2. ABDOMEN: Obese, soft, a EXTREMITIES: No gross edema . LUE-AVF SKIN: No rash. NEUROLOGIC: Awake and answering questions appropriately. No Vamshi DIAGNOSIS/ASSESSMENT Assessment & Plan ESRD - On HD TTS No indication for HD today Access- Had thrombosed left upper extremity HERO recently S/P Left upper extremity fistulogram, [employer] mechanical thrombolysis thrombosed Hero graft.,Angioplasty of outflow vein stenosis on 04/01 dialysis graft DM- per primary Anemia - On FRED RLL infiltrate and pleural effusion - s/p Thoracentesis Sinus disease on CT Hypotension - On Midodrine Morbid Obesity Bone /Mineral-On Binders and Cinacalcet COMMENT/RELEVANT DATA Meds Current Medications Medications (Trade) Dose Ordered Sig/[place] Start Time Stop Time Status Last Admin Dose Admin Acetaminophen (Tylenol) 500 mg 1X PRN PRN 04/17/19 07:15 04/18/19 07:14 DC Al Hydroxide/Mg Hydroxide (Mylanta Plus Xs) 30 ml PRN DAILY PRN 04/14/19 15:45 Albumin Human 200 ml @ 200 mls/hr 1X PRN PRN 04/22/19 07:15 04/22/19 13:14 DC Albuterol Sulfate (Ventolin Neb Soln) 2.5 mg RTBID 04/14/19 20:00 04/26/19 08:38 2.5 MG Amlodipine Besylate (Norvasc) 5 mg DAILY 04/14/19 17:30 04/17/19 10:28 DC 04/16/19 11:42 5 MG Amoxicillin/ Clavulanate Potassium (Augmentin 500/ 125mg) 1 tab DAILY 04/16/19 14:45 04/16/19 15:23 DC Aspirin (Ecotrin) 81 mg DAILY 04/14/19 17:30 04/26/19 09:18 81 MG Calcium Gluconate 1000 mg/Dextrose 110 ml @ 220 mls/hr 1X ONCE 04/21/19 13:00 04/21/19 13:29 DC 04/21/19 13:19 220 MLS/HR Cinacalcet (Sensipar) 30 mg DAILY 04/14/19 17:30 04/26/19 09:18 30 MG Clonidine HCl (Catapres) 0.1 mg PRN Q6HRS PRN 04/14/19 15:45 Darbepoetin Andriy (ARANESP for DIALYSIS PTS) 60 mcg Sa 04/17/19 21:00 04/24/19 20:18 60 MCG Dextrose (Dextrose 50%-Water Syringe) 12.5 gm PRN Q15MIN PRN 04/14/19 17:15 04/15/19 14:10 12.5 GM Diphenhydramine HCl (Benadryl) 25 mg 1X PRN PRN 04/24/19 08:30 04/24/19 18:00 DC Docusate Sodium (Colace) 100 mg DAILY 04/23/19 09:00 04/26/19 09:18 100 MG Enoxaparin Sodium (Lovenox 40mg Syringe) 40 mg Q24H 04/14/19 18:00 Cancel Famotidine (Pepcid) 20 mg Q48H 04/14/19 21:00 04/24/19 20:18 20 MG Fluticasone Propionate (Flonase) 2 spray DAILY 04/14/19 17:30 04/26/19 09:18 2 SPRAY Gabapentin (Neurontin) 300 mg QHS 04/14/19 21:00 04/25/19 20:36 300 MG Heparin Sodium (Porcine) (Heparin Sodium) 5,000 unit Q8HRS 04/20/19 14:00 04/25/19 16:41 DC 04/25/19 13:32 5,000 UNIT Info (PHARMACY MONITORING -- do not chart) 1 each PRN DAILY PRN 04/24/19 08:30 UNV Lactobacillus Rhamnosus (Culturelle) 1 cap BID 04/16/19 21:00 04/26/19 09:18 1 CAP Levofloxacin/ Dextrose 100 ml @ 100 mls/hr Q48H 04/16/19 14:00 Cancel Levofloxacin/ Dextrose (Levaquin Per Pharmacy) 1 each PRN DAILY PRN 04/14/19 13:15 04/14/19 15:43 DC Levothyroxine Sodium (Synthroid) 100 mcg DAILY06 04/15/19 09:00 04/26/19 03:23 100 MCG Lidocaine HCl (Xylocaine-Mpf 1% 2ml Vial) 0.5 ml 1X STAT 04/24/19 08:20 04/24/19 08:30 DC 04/24/19 08:32 0.5 ML Lidocaine/ Prilocaine (Emla) 1 candice 1X PRN 04/23/19 13:00 04/23/19 23:59 DC Midodrine (Proamatine) 5 mg [id number] 04/14/19 18:00 04/26/19 03:22 5 MG Phytonadione (Vitamin K Ampule) 10 mg 1X ONCE 04/18/19 10:00 04/18/19 15:10 DC 04/18/19 11:50 10 MG Phytonadione 10 mg/Dextrose 51 ml @ 102 mls/hr 1X ONCE 04/18/19 13:45 04/18/19 15:10 DC Piperacillin Sod/ Tazobactam Sod (Zosyn Per Pharmacy) 1 each PRN DAILY PRN 04/15/19 10:30 04/16/19 14:44 DC Piperacillin Sod/ Tazobactam Sod 2.25 gm/Sodium Chloride 50 ml @ 100 mls/hr Q8HRS 04/16/19 16:00 04/21/19 07:10 DC 04/21/19 05:02 100 MLS/HR Polyethylene Glycol (miraLAX PACKET) 17 gm PRN DAILY PRN 04/22/19 13:15 04/23/19 10:50 17 GM Sevelamer Carbonate (Renvela) 800 mg TIDWMEALS 04/14/19 17:30 04/26/19 09:17 800 MG Sodium Bicarbonate (Sodium Bicarb Adult 8.4% Syr) 100 meq 1X ONCE 04/14/19 20:00 04/14/19 20:05 DC 04/14/19 20:09 100 MEQ Sodium Chloride 1,000 ml @ 400 mls/hr Q2H30M PRN 04/24/19 08:30 04/24/19 18:00 DC Topiramate (Topamax) 25 mg DAILY 10/8/19 17:00 04/26/19 09:18 25 MG Vancomycin HCl (Vanco Per Pharmacy) 1 each PRN DAILY PRN 04/16/19 15:30 04/21/19 07:10 DC 04/20/19 11:28 1 EACH Vancomycin HCl (Vancomycin Random Level) 1 each 1X ONCE 04/17/19 06:00 04/17/19 06:01 DC 04/17/19 06:00 1 EACH Vancomycin HCl 500 mg/Sodium Chloride 100 ml @ 100 mls/hr QTUTHSA 04/20/19 16:00 04/21/19 07:10 DC 04/20/19 18:22 100 MLS/HR Vancomycin HCl 1 gm/Sodium Chloride 250 ml @ 250 mls/hr 1X ONCE 04/17/19 15:00 04/17/19 15:59 DC 04/17/19 14:50 250 MLS/HR Vancomycin HCl 2 gm/Sodium Chloride 500 ml @ 250 mls/hr 1X ONCE 04/14/19 13:30 04/14/19 15:29 DC 04/14/19 18:29 250 MLS/HR Vitamin B Complex/ Vitamin C (Sandra-Donovan) 1 tab DAILY 04/14/19 17:30 04/26/19 09:18 1 TAB Warfarin Sodium (Coumadin Per Pharmacy) 1 each PRN DAILY PRN 04/19/19 16:00 04/26/19 07:56 1 EACH Warfarin Sodium (Coumadin) 7.5 mg 1X WARF ONCE 04/26/19 16:00 04/26/19 16:01 Lab Laboratory Tests Test 04/25/19 16:51 04/25/19 20:30 04/26/19 03:45 04/26/19 07:08 Glucose (Fingerstick) 112 mg/dL (70-99) 112 mg/dL (70-99) 70 mg/dL (70-99) Prothrombin Time 23.3 SEC (11.7-14.0) Prothromb Time International Ratio 2.1 (0.8-1.1) Results All relevant outside records, renal labs, imaging studies, telemetry/EKG's were reviewed. MARIO NOVOA MD Apr 26, 2019 11:43
--- NOTE | 2019-04-26 12:06 | SNU/HH DC ---
DISCHARGE ORDERS DISCHARGE INFORMATION: DISCHARGE DATE: Apr 26, 2019 FINAL DIAGNOSIS sepsis encephalopathy due to infection ESRD on dialysis CONDITION ON DISCHARGE: Stable CODE STATUS: Code Status: Full LONGTERM: SNF STAY <30 DAYS: Yes POST DISCHARGE ORDERS: ACTIVITY ORDERS: Activity as tolerated WEIGHT BEARING STATUS: As tolerated DIET AFTER DISCHARGE: Renal WOUND/INCISION CARE: No wound care needed CHECKS AFTER DISCHARGE: CHECKS AFTER DISCHARGE: Check blood press - daily, Check blood sugar, ac/hs FOLLOW-UP: PHYSICIAN FOLLOW-UP: 1-2 weeks after snu discharge ANTICOAGULATION F/U NEEDED: pharmacy to manage warfarin - INR goal 2-3, INR twice a week TREATMENT/EQUIPMENT ORDERS: ADAPTIVE EQUIPMENT NEEDED: None Physical Therapy For: Evalulation/Treatment Occupational Therapy For: Evaluation/Treatment DISCHARGE MEDICATIONS: Home Meds Active Scripts Clonidine Hcl (CATAPRES) 0.1 Mg Tablet, 0.1 MG PO PRN Q6HRS PRN for SBP>160 OR DBP>90 for 30 Days, #30 TAB Prov:Joanne HUFF MD 04/23/19 Topiramate (TOPAMAX) 25 Mg Tablet, 25 MG PO DAILY for tremor for 30 Days, #30 TAB Prov:Joanne HUFF MD 04/23/19 Polyethylene Glycol 3350 (POLYETHYLENE GLYCOL 3350) 17 Gm Powd.pack, 17 GM PO PRN DAILY PRN for CONSTIPATION for 30 Days, #30 PKT Prov:Joanne HUFF MD 04/23/19 Gabapentin (GABAPENTIN) 300 Mg Capsule, 300 MG PO QHS for neuropathy of feet for 30 Days, #30 CAP 6 Refills Prov:Joanne HUFF MD 01/25/19 Reported Medications Warfarin Sodium (COUMADIN) 7.5 Mg Tablet, 1 TAB PO DAILY, #90 TAB 3 Refills 03/13/18 Hydrocodone Bit/Acetaminophen (HYDROCODONE-APAP 7.5-325 ) 1 Each Tablet, 1 TAB PO BID PRN for PAIN, TAB 0 Refills 05/06/17 Fluticasone Propionate (FLUTICASONE PROPIONATE NASAL SPRAY) 16 Gm [place].susp, 2 SPRAY NS DAILY, EACH 05/06/17 Sevelamer Carbonate (RENVELA) 800 Mg Tablet, 800 MG PO TIDWMEALS, TAB 05/06/17 Ibuprofen (IBUPROFEN) 800 Mg Tablet, 800 MG PO PRN Q6HRS PRN for INFLAMMATION, TAB 05/06/17 Cholecalciferol (Vitamin D3) (Vitamin D3) 2,000 Unit Tab.chew, 1000 UNIT PO, TAB.CHEW 05/06/17 Albuterol Sulfate (VENTOLIN HFA INHALER) 18 Gm Hfa.aer.ad, 2 PUFF INH BID for FOR ASTHMA, INHALER 0 Refills 05/06/17 Amlodipine Besylate (AMLODIPINE BESYLATE) 5 Mg Tablet, 5 MG PO DAILY, TAB 05/06/17 Folic Acid/Vitamin B Comp W-C (NEPHRO-BI TABLET) 0.8 Mg Tablet, 0.8 MG PO DAILY, TAB 12/20/16 Cinacalcet Hcl (SENSIPAR) 30 Mg Tablet, 30 MG PO DAILY, TAB 12/20/16 Aspirin (LOW DOSE ASPIRIN EC) 81 Mg Tablet.dr, 1 TAB PO DAILY, #30 TAB 3 Refills 03/09/14 Midodrine Hcl (MIDODRINE HCL) 5 Mg Tablet, 5 MG PO PRN PRN for PER PROTOCOL 03/09/14 Levothyroxine Sodium (LEVOTHYROXINE SODIUM) 50 Mcg Tablet, 50 MCG PO DAILY for THYROID SUPPLEMENT, #30 TAB 0 Refills 03/09/14 Ranitidine Hcl (RANITIDINE HCL) 300 Mg Capsule, 300 MG PO BID, CAP 03/09/14 Joanne HUFF MD Apr 26, 2019 12:06
--- NOTE | 2019-04-26 12:08 | PDOC ---
PROGRESS NOTES Assessment Problems Medical Problems: (1) Right lower lobe pneumonia Status: Acute Essential tremor. Metabolic encephalopathy, resolved Medical issues: acute hypercapnic respiratory failure aspiration pneumonia sphenoid sinusitis ESRD on dialysis Bradycardia Right pleural effusion s/p thoracentesis Coagulopathy HTN anemia of chronic renal disease Bacteremia Debility Hypocalcemia CAD. DM. HTN. HLD. Hypothyroidism, TSH 10.97 Uterine cancer. Obesity. Plan Okay for discharge Topamax 25 mg daily with titration up. Continue Neurontin 300 mg HS, may increase dose (though renal failure concern). Beta-Lizet not given due to hypotension. Treat medical diseases. OT/PT. Follow-up with Dr. Vazquez as needed. Objective Vital Signs Date Time Temp Pulse Resp B/P (MAP) Pulse Ox O2 Delivery O2 Flow Rate FiO2 04/26/19 10:23 98.2 75 20 113/49 (70) 96 Nasal Cannula 2.0 98.2 Intake and Output 04/26/19 07:00 Intake Total 200 ml Balance 200 ml Intake Oral 200 ml PHYSICAL EXAM Sleepy, arouses easily. Oriented to time, place and person. PERRL. EOMI. CN: no focal findings. Muscle tone: normal. Muscle strength: 4/5 DTR: 1+ Plantar reflex: flexor Gait: not examined in bed. Sensory exam: no abnormal findings. No cerebellar signs elicited. Mild postural tremor Review of Relevant I have reviewed the following items gloria (where applicable) has been applied. Labs Laboratory Tests Test 04/24/19 13:04 04/24/19 17:14 04/24/19 20:35 04/25/19 07:35 Glucose (Fingerstick) 70 mg/dL (70-99) 110 mg/dL (70-99) 116 mg/dL (70-99) 86 mg/dL (70-99) Test 04/25/19 11:16 04/25/19 16:51 04/25/19 20:30 04/26/19 03:45 Glucose (Fingerstick) 96 mg/dL (70-99) 112 mg/dL (70-99) 112 mg/dL (70-99) Prothrombin Time 23.3 SEC (11.7-14.0) Prothromb Time International Ratio 2.1 (0.8-1.1) Test 04/26/19 07:08 Glucose (Fingerstick) 70 mg/dL (70-99) Laboratory Tests Test 04/25/19 16:51 04/25/19 20:30 04/26/19 03:45 04/26/19 07:08 Glucose (Fingerstick) 112 mg/dL (70-99) 112 mg/dL (70-99) 70 mg/dL (70-99) Prothrombin Time 23.3 SEC (11.7-14.0) Prothromb Time International Ratio 2.1 (0.8-1.1) Microbiology 04/19/19 Anaerobic/Aerobic Culture - Final, Complete 04/19/19 Anaerobic Culture Result 1 (BLACK) - Final, Complete 04/19/19 Aerobic Culture - Final, Complete 04/19/19 Aerobic Culture Result 1 (BLACK) - Final, Complete 04/19/19 Gram Stain - Final, Complete 04/19/19 Gram Stain Result 1 (BLACK) - Final, Complete 04/19/19 Gram Stain Result 2 (BLACK) - Final, Complete 04/14/19 Blood Culture - Final, Complete NO GROWTH AFTER 5 DAYS Medications Current Medications Levofloxacin/ Dextrose (Levaquin Per Pharmacy) 1 each PRN DAILY PRN MC SEE COMMENTS; Start 04/14/19 at 13:15; Stop 04/14/19 at 15:43; Status DC Vancomycin HCl (Vanco Per Pharmacy) 1 each PRN DAILY PRN MC SEE COMMENTS Last administered on 04/16/19at 08:56; Start 04/14/19 at 13:15; Stop 04/16/19 at 14:44; Status DC Vancomycin HCl 2 gm/Sodium Chloride 500 ml @ 250 mls/hr 1X ONCE IV Last administered on 04/14/19at 18:29; Start 04/14/19 at 13:30; Stop 04/14/19 at 15:29; Status DC Levofloxacin/ Dextrose 100 ml @ 100 mls/hr 1X ONCE IV Last administered on 04/14/19at 13:54; Start 04/14/19 at 13:45; Stop 04/14/19 at 14:44; Status DC Levofloxacin/ Dextrose 100 ml @ 100 mls/hr Q48H IV ; Start 04/16/19 at 14:00; Status Cancel Acetaminophen (Tylenol) 650 mg PRN Q4HRS PRN PO TEMP OVER 100.4F OR MILD PAIN Last administered on 04/25/19at 05:32; Start 04/14/19 at 15:45 Al Hydroxide/Mg Hydroxide (Mylanta Plus Xs) 30 ml PRN DAILY PRN PO HEARTBURN / GAS; Start 04/14/19 at 15:45 Clonidine HCl (Catapres) 0.1 mg PRN Q6HRS PRN PO SBP>160 OR DBP>90; Start 04/14/19 at 15:45 Docusate Sodium (Colace) 100 mg PRN BID PRN PO HARD STOOLS Last administered on 04/19/19at 12:39; Start 04/14/19 at 15:45 Enoxaparin Sodium (Lovenox 40mg Syringe) 40 mg Q24H SQ ; Start 04/14/19 at 18:00; Status Cancel Heparin Sodium (Porcine) (Heparin Sodium) 5,000 unit Q8HRS SQ Last administered on 04/17/19 14:16; Start 04/14/19 at 22:00; Stop 04/17/19 at 20:21; Status DC Amlodipine Besylate (Norvasc) 5 mg DAILY PO Last administered on 04/16/19 11:42; Start 04/14/19 at 17:30; Stop 04/17/19 at 10:28; Status DC Aspirin (Ecotrin) 81 mg DAILY PO Last administered on 04/26/19 09:18; Start 04/14/19 at 17:30 Cinacalcet (Sensipar) 30 mg DAILY PO Last administered on 04/26/19 09:18; Start 04/14/19 at 17:30 Fluticasone Propionate (Flonase) 2 spray DAILY NS Last administered on 04/26/19 09:18; Start 04/14/19 at 17:30 Vitamin B Complex/ Vitamin C (Sandra-Donovan) 1 tab DAILY PO Last administered on 04/26/19 09:18; Start 04/14/19 at 17:30 Gabapentin (Neurontin) 300 mg QHS PO Last administered on 04/25/19 20:36; Start 04/14/19 at 21:00 Levothyroxine Sodium (Synthroid) 50 mcg DAILY PO ; Start 04/14/19 at 17:00; Stop 04/15/19 at 08:38; Status DC Midodrine (Proamatine) 5 mg [id number] PO Last administered on 04/26/19 03:22; Start 04/14/19 at 18:00 Sevelamer Carbonate (Renvela) 800 mg TIDWMEALS PO Last administered on 04/26/19 09:17; Start 04/14/19 at 17:30 Warfarin Sodium (Coumadin) 7.5 mg DAILY16 PO Last administered on 04/14/19at 17:35; Start 04/14/19 at 17:11; Stop 04/15/19 at 10:15; Status DC Albuterol Sulfate (Ventolin Neb Soln) 2.5 mg RTBID NEB Last administered on 04/26/19 08:38; Start 04/14/19 at 20:00 Famotidine (Pepcid) 20 mg Q48H PO Last administered on 04/24/19 20:18; Start 04/14/19 at 21:00 Warfarin Sodium (Coumadin Per Pharmacy) 1 each PRN DAILY PRN MC SEE COMMENTS Last administered on 04/16/19 09:08; Start 04/14/19 at 17:15; Stop 04/16/19 at 12:48; Status DC Dextrose (Dextrose 50%-Water Syringe) 12.5 gm PRN Q15MIN PRN IV SEE COMMENTS Last administered on 04/15/19 14:10; Start 04/14/19 at 17:15 Vancomycin HCl (Vancomycin Random Level) 1 each 1X ONCE MC ; Start 04/17/19 at 06:00; Stop 04/16/19 at 14:47; Status DC Sodium Bicarbonate (Sodium Bicarb Adult 8.4% Syr) 100 meq 1X ONCE IV Last administered on 04/14/19at 20:09; Start 04/14/19 at 20:00; Stop 04/14/19 at 20:05; Status DC Sodium Chloride 1,000 ml @ 1,000 mls/hr Q1H PRN IV hypotension; Start 04/15/19 at 07:35; Stop 04/15/19 at 13:34; Status DC Albumin Human 200 ml @ 200 mls/hr 1X PRN PRN IV Hypotension; Start 04/15/19 at 07:45; Stop 04/15/19 at 13:44; Status DC Acetaminophen (Tylenol) 500 mg 1X PRN PRN PO MILD PAIN / TEMP; Start 04/15/19 at 07:45; Stop 04/16/19 at 07:44; Status DC Diphenhydramine HCl (Benadryl) 25 mg 1X PRN PRN IV ITCHING; Start 04/15/19 at 07:45; Stop 04/16/19 at 07:44; Status DC Diphenhydramine HCl (Benadryl) 25 mg 1X PRN PRN IV ITCHING; Start 04/15/19 at 0 7:45; Stop 04/16/19 at 07:44; Status DC Sodium Chloride 1,000 ml @ 400 mls/hr Q2H30M PRN IV PATENCY; Start 04/15/19 at 07:35; Stop 04/15/19 at 19:34; Status DC Info (PHARMACY MONITORING -- do not chart) 1 each PRN DAILY PRN MC SEE COMMENTS; Start 04/15/19 at 07:45; Status Cancel Info (PHARMACY MONITORING -- do not chart) 1 each PRN DAILY PRN MC SEE COMMENTS; Start 04/15/19 at 07:45; Status UNV Lidocaine HCl (Xylocaine-Mpf 1% 2ml Vial) 2 ml 1X ONCE INJ ; Start 04/15/19 at 07:45; Stop 04/15/19 at 07:52; Status DC Levothyroxine Sodium (Synthroid) 100 mcg DAILY06 PO Last administered on 04/26/19at 03:23; Start 04/15/19 at 09:00 Piperacillin Sod/ Tazobactam Sod 2.25 gm/Sodium Chloride 50 ml @ 100 mls/hr Q8HRS IV ; Start 04/15/19 at 12:00; Status Cancel Piperacillin Sod/ Tazobactam Sod (Zosyn Per Pharmacy) 1 each PRN DAILY PRN MC SEE COMMENTS; Start 04/15/19 at 10:30; Stop 04/16/19 at 14:44; Status DC Piperacillin Sod/ Tazobactam Sod 2.25 gm/Sodium Chloride 50 ml @ 100 mls/hr Q8H IV Last administered on 04/16/19at 11:42; Start 04/15/19 at 11:00; Stop 04/16/19 at 14:44; Status DC Amoxicillin/ Clavulanate Potassium (Augmentin 500/ 125mg) 1 tab DAILY PO ; Start 04/16/19 at 14:45; Stop 04/16/19 at 15:23; Status DC Piperacillin Sod/ Tazobactam Sod 2.25 gm/Sodium Chloride 50 ml @ 100 mls/hr Q8HRS IV Last administered on 04/21/19at 05:02; Start 04/16/19 at 16:00; Stop 04/21/19 at 07:10; Status DC Vancomycin HCl (Vanco Per Pharmacy) 1 each PRN DAILY PRN MC SEE COMMENTS Last administered on 04/20/19at 11:28; Start 04/16/19 at 15:30; Stop 04/21/19 at 07:10; Status DC Vancomycin HCl (Vancomycin Random Level) 1 each 1X ONCE MC Last administered on 04/17/19at 06:00; Start 04/17/19 at 06:00; Stop 04/17/19 at 06:01; Status DC Lactobacillus Rhamnosus (Culturelle) 1 cap BID PO Last administered on 04/26/19at 09:18; Start 04/16/19 at 21:00 Sodium Chloride 1,000 ml @ 1,000 mls/hr Q1H PRN IV hypotension; Start 04/17/19 at 07:15; Stop 04/17/19 at 13:14; Status DC Acetaminophen (Tylenol) 500 mg 1X PRN PRN PO MILD PAIN / TEMP; Start 04/17/19 at 07:15; Stop 04/18/19 at 07:14; Status DC Sodium Chloride 1,000 ml @ 400 mls/hr Q2H30M PRN IV PATENCY; Start 04/17/19 at 07:15; Stop 04/17/19 at 19:14; Status DC Info (PHARMACY MONITORING -- do not chart) 1 each PRN DAILY PRN MC SEE COMMENTS; Start 04/17/19 at 07:15; Status UNV Info (PHARMACY MONITORING -- do not chart) 1 each PRN DAILY PRN MC SEE COMMENTS; Start 04/17/19 at 07:15 Vancomycin HCl 500 mg/Sodium Chloride 100 ml @ 100 mls/hr QTUTHSA IV Last administered on 04/20/19at 18:22; Start 04/20/19 at 16:00; Stop 04/21/19 at 07:10; Status DC Vancomycin HCl 1 gm/Sodium Chloride 250 ml @ 250 mls/hr 1X ONCE IV Last administered on 04/17/19at 14:50; Start 04/17/19 at 15:00; Stop 04/17/19 at 15:59; Status DC Darbepoetin Andriy (ARANESP for DIALYSIS PTS) 60 mcg Sa SQ Last administered on 04/24/19at 20:18; Start 04/17/19 at 21:00 Phytonadione (Vitamin K Ampule) 10 mg 1X ONCE SQ Last administered on 04/18/19at 11:50; Start 04/18/19 at 10:00; Stop 04/18/19 at 15:10; Status DC Phytonadione 10 mg/Dextrose 51 ml @ 102 mls/hr 1X ONCE IV ; Start 04/18/19 at 13:45; Stop 04/18/19 at 15:10; Status DC Warfarin Sodium (Coumadin Per Pharmacy) 1 each PRN DAILY PRN MC SEE COMMENTS Last administered on 04/26/19at 07:56; Start 04/19/19 at 16:00 Warfarin Sodium (Coumadin) 7.5 mg 1X WARF ONCE PO Last administered on 04/19/19at 17:42; Start 04/19/19 at 16:30; Stop 04/19/19 at 16:31; Status DC Heparin Sodium (Porcine) (Heparin Sodium) 5,000 unit Q8HRS SQ Last administered on 04/25/19at 13:32; Start 04/20/19 at 14:00; Stop 04/25/19 at 16:41; Status DC Sodium Chloride 250 ml @ 250 mls/hr 1X ONCE IV Last administered on 04/20/19at 11:57; Start 04/20/19 at 11:30; Stop 04/20/19 at 12:29; Status DC Warfarin Sodium (Coumadin) 7.5 mg 1X WARF ONCE PO Last administered on 04/20/19at 17:25; Start 04/20/19 at 16:00; Stop 04/20/19 at 16:01; Status DC Sodium Chloride 1,000 ml @ 1,000 mls/hr Q1H PRN IV hypotension; Start 04/20/19 at 12:39; Stop 04/20/19 at 18:38; Status DC Sodium Chloride 1,000 ml @ 400 mls/hr Q2H30M PRN IV PATENCY; Start 04/20/19 at 12:39; Stop 04/21/19 at 00:38; Status DC Info (PHARMACY MONITORING -- do not chart) 1 each PRN DAILY PRN MC SEE COMMENTS; Start 04/20/19 at 12:45; Status UNV Info (PHARMACY MONITORING -- do not chart) 1 each PRN DAILY PRN MC SEE COMMENTS; Start 04/20/19 at 12:45; Status UNV Lidocaine HCl (Xylocaine-Mpf 1% 2ml Vial) 2 ml 1X ONCE ID Last administered on 04/20/19at 13:02; Start 04/20/19 at 12:45; Stop 04/20/19 at 12:48; Status DC Topiramate (Topamax) 25 mg DAILY PO Last administered on 04/26/19at 09:18; Start 04/20/19 at 17:00 Warfarin Sodium (Coumadin) 7.5 mg 1X WARF ONCE PO Last administered on 04/21/19at 17:48; Start 04/21/19 at 16:00; Stop 04/21/19 at 16:01; Status DC Calcium Gluconate 1000 mg/Dextrose 110 ml @ 220 mls/hr 1X ONCE IV Last administered on 04/21/19at 13:19; Start 04/21/19 at 13:00; Stop 04/21/19 at 13 :29; Status DC Sodium Chloride 250 ml @ 250 mls/hr 1X ONCE IV Last administered on 04/21/19at 14:16; Start 04/21/19 at 14:00; Stop 04/21/19 at 14:59; Status DC Sodium Chloride 1,000 ml @ 1,000 mls/hr Q1H PRN IV hypotension; Start 04/22/19 at 07:11; Stop 04/22/19 at 13:10; Status DC Albumin Human 200 ml @ 200 mls/hr 1X PRN PRN IV Hypotension; Start 04/22/19 at 07:15; Stop 04/22/19 at 13:14; Status DC Sodium Chloride 1,000 ml @ 400 mls/hr Q2H30M PRN IV PATENCY; Start 04/22/19 at 07:11; Stop 04/22/19 at 19:10; Status DC Info (PHARMACY MONITORING -- do not chart) 1 each PRN DAILY PRN MC SEE COMMENTS; Start 04/22/19 at 07:15; Status UNV Info (PHARMACY MONITORING -- do not chart) 1 each PRN DAILY PRN MC SEE COMMENTS; Start 04/22/19 at 07:15; Status Cancel Polyethylene Glycol (miraLAX PACKET) 17 gm PRN DAILY PRN PO CONSTIPATION Last administered on 04/23/19at 10:50; Start 04/22/19 at 13:15 Docusate Sodium (Colace) 100 mg DAILY PO Last administered on 04/26/19at 09:18; Start 04/23/19 at 09:00 Warfarin Sodium (Coumadin) 10 mg 1X WARF ONCE PO Last administered on 04/22/19at 16:57; Start 04/22/19 at 16:00; Stop 04/22/19 at 16:01; Status DC Warfarin Sodium (Coumadin) 10 mg 1X WARF ONCE PO Last administered on 04/23/19at 15:40; Start 04/23/19 at 16:00; Stop 04/23/19 at 16:01; Status DC Lidocaine/ Prilocaine (Emla) 1 candice 1X PRN TP PAIN; Start 04/23/19 at 13:00; Stop 04/23/19 at 23:59; Status DC Sodium Chloride 1,000 ml @ 1,000 mls/hr Q1H PRN IV hypotension; Start 04/24/19 at 08:30; Stop 04/24/19 at 18:00; Status DC Diphenhydramine HCl (Benadryl) 25 mg 1X PRN PRN IV ITCHING; Start 04/24/19 at 08:30; Stop 04/24/19 at 18:00; Status DC Diphenhydramine HCl (Benadryl) 25 mg 1X PRN PRN IV ITCHING; Start 04/24/19 at 08:30; Stop 04/24/19 at 18:00; Status DC Sodium Chloride 1,000 ml @ 400 mls/hr Q2H30M PRN IV PATENCY; Start 04/24/19 at 08:30; Stop 04/24/19 at 18:00; Status DC Info (PHARMACY MONITORING -- do not chart) 1 each PRN DAILY PRN MC SEE COMMENTS; Start 04/24/19 at 08:30; Status UNV Lidocaine HCl (Xylocaine-Mpf 1% 2ml Vial) 0.5 ml 1X STAT ID Last administered on 04/24/19at 08:32; Start 04/24/19 at 08:20; Stop 04/24/19 at 08:30; Status DC Warfarin Sodium (Coumadin) 7.5 mg 1X WARF ONCE PO Last administered on at 16:38; Start 04/24/19 at 16:00; Stop 04/24/19 at 16:01; Status DC Warfarin Sodium (Coumadin) 7.5 mg 1X WARF ONCE PO Last administered on 04/25/19at 18:06; Start 04/25/19 at 17:00; Stop 04/25/19 at 17:01; Status DC Warfarin Sodium (Coumadin) 7.5 mg 1X WARF ONCE PO ; Start 04/26/19 at 16:00; Stop 04/26/19 at 16:01 Active Scripts Active Catapres (Clonidine Hcl) 0.1 Mg Tablet 0.1 Mg PO PRN Q6HRS PRN 30 Days Topamax (Topiramate) 25 Mg Tablet 25 Mg PO DAILY 30 Days Polyethylene Glycol 3350 17 Gm Powd.pack 17 Gm PO PRN DAILY PRN 30 Days Gabapentin 300 Mg Capsule 300 Mg PO QHS 30 Days Reported Coumadin (Warfarin Sodium) 7.5 Mg Tablet 1 Tab PO DAILY Hydrocodone-Apap 7.5-325 (Hydrocodone Bit/Acetaminophen) 1 Each Tablet 1 Tab PO BID PRN Fluticasone Propionate Nasal [place] (Fluticasone Propionate) 16 Gm [place].susp 2 [place] NS DAILY Renvela (Sevelamer Carbonate) 800 Mg Tablet 800 Mg PO TIDWMEALS Ibuprofen 800 Mg Tablet 800 Mg PO PRN Q6HRS PRN Vitamin D3 (Cholecalciferol (Vitamin D3)) 2,000 Unit Tab.chew 1,000 Unit PO Ventolin Hfa Inhaler (Albuterol Sulfate) 18 Gm Hfa.aer.ad 2 Puff INH BID Amlodipine Besylate 5 Mg Tablet 5 Mg PO DAILY Nephro-Donovan Tablet (Folic Acid/Vitamin B Comp W-C) 0.8 Mg Tablet 0.8 Mg PO DAILY Sensipar (Cinacalcet Hcl) 30 Mg Tablet 30 Mg PO DAILY Low Dose Aspirin Ec (Aspirin) 81 Mg Tablet.dr 1 Tab PO DAILY Midodrine Hcl 5 Mg Tablet 5 Mg PO PRN PRN Levothyroxine Sodium 50 Mcg Tablet 50 Mcg PO DAILY Ranitidine Hcl 300 Mg Capsule 300 Mg PO BID Vitals/I & O Vital Sign - Last 24 Hours 10/13/04/25/19 04/25/19 04/25/19 12:28 15:09 18:06 19:00 Temp 97.8 97.8 Pulse 55 74 70 Resp 20 B/P (MAP) 103/48 133/42 (72) Pulse Ox 97 O2 Delivery Nasal Cannula Nasal Cannula O2 Flow Rate 2.0 2.0 04/25/19 04/25/19 04/25/19 04/26/19 19:35 20:01 22:30 03:10 Temp 98.1 98.0 97.9 98.1 98.0 97.9 Pulse 62 61 74 Resp 20 20 18 B/P (MAP) 116/51 (72) 90/41 (57) 64/32 (43) Pulse Ox 96 95 96 97 O2 Delivery Nasal Cannula Nasal Cannula Nasal Cannula Nasal Cannula O2 Flow Rate 2.0 2.0 2.0 2.0 04/26/19 04/26/19 04/26/19 04/26/19 03:22 03:30 04:00 07:00 Temp 97.7 97.7 Pulse 58 74 74 74 Resp 20 B/P (MAP) 72/25 90/30 (50) 92/37 (55) 99/34 (55) Pulse Ox 94 O2 Delivery Nasal Cannula O2 Flow Rate 2.0 04/26/19 04/26/19 04/26/19 08:00 08:38 10:23 Temp 98.2 98.2 Pulse 75 Resp 20 B/P (MAP) 113/49 (70) Pulse Ox 98 96 O2 Delivery Nasal Cannula Nasal Cannula Nasal Cannula O2 Flow Rate 2.0 2.0 2.0 Intake and Output 04/25/19 04/25/19 04/26/19 15:00 23:00 07:00 Intake Total 200 ml Balance 200 ml TYSON HUANG MD Apr 26, 2019 12:08
--- NOTE | 2019-04-26 12:19 | PDOC3 ---
Discharge Summary [facility] Date of Admission: Apr 14, 2019 Discharge Date: Apr 26, 2019 Admitting Diagnosis possible pneumonia Final Diagnosis sepsis encephalopathy from infection ESRD on dialysis acute respiratory failure from pleural effusion CONSULTS renal, ID, neurology, pulm, cardiology, IR Procedures thoracentesis, hemodialysis Brief Hospital Course Ms. 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 Bradycardia - HR better- checked EKG & troponin which were unremarkable, Cardiology consult, continue tele right pleural effusion - thoracentesis done 04/19 with 950 cc removed - transudate, resumed warfarin after holding it 3 days prior coagulopathy - covered with subQ heparin until INR therapeutic with warfarin HTN - overtreated - Norvasc stopped - monitoring anemia of chronic renal disease - Aranesp hematuria x 1 episode when on heparin and warfarin anticoagulants, heparin held and no recurrence so resumed bacteremia - 07/16 bottles, lactobacillus per C&S - ID following and now completed IV abx tremor - essential type- Neuro consult, start low dose topiramate and titrate debility - now needing Dominique lift - PT/OT and SNU eval hypocalcemia - replace with IV calcium gluconate, normal phosphorus and magnesium levels though Patient History: Diabetes mellitus type II G8 BROTHER G8 SISTER G8 SISTER FH: asthma G8 SON G8 SON FH: hypertension G8 DAUGHTER G8 SON G8 SON G8 SISTER Unknown Disposition SNU CONDITION AT DISCHARGE: Improved, Stable Diet renal Scheduled Albuterol Sulfate (Ventolin Hfa Inhaler), 2 PUFF INH BID, (Reported) Amlodipine Besylate (Amlodipine Besylate), 5 MG PO DAILY, (Reported) Aspirin (Low Dose Aspirin Ec), 1 TAB PO DAILY, (Reported) Cinacalcet Hcl (Sensipar), 30 MG PO DAILY, (Reported) Fluticasone Propionate (Fluticasone Propionate Nasal [place]), 2 SPRAY NS DAILY, (Reported) Folic Acid/Vitamin B Comp W-C (Nephro-Donovan Tablet), 0.8 MG PO DAILY, (Reported) Gabapentin (Gabapentin), 300 MG PO QHS Levothyroxine Sodium (Levothyroxine Sodium), 50 MCG PO DAILY, (Reported) Ranitidine Hcl (Ranitidine Hcl), 300 MG PO BID, (Reported) Sevelamer Carbonate (Renvela), 800 MG PO TIDWMEALS, (Reported) Topiramate (Topamax), 25 MG PO DAILY Warfarin Sodium (Coumadin), 1 TAB PO DAILY, (Reported) Scheduled PRN Clonidine Hcl (Catapres), 0.1 MG PO PRN Q6HRS PRN for SBP>160 OR DBP>90 Hydrocodone Bit/Acetaminophen (Hydrocodone-Apap 7.5-325 ), 1 TAB PO BID PRN for PAIN, (Reported) Ibuprofen (Ibuprofen), 800 MG PO PRN Q6HRS PRN for INFLAMMATION, (Reported) Midodrine Hcl (Midodrine Hcl), 5 MG PO PRN PRN for PER PROTOCOL, (Reported) Polyethylene Glycol 3350 (Polyethylene Glycol 3350), 17 GM PO PRN DAILY PRN for CONSTIPATION Miscellaneous Medications Cholecalciferol (Vitamin D3) (Vitamin D3), 1,000 UNIT PO, (Reported) Follow Up 1-2 weeks Patient Instructions continue June Del [facility], [facility] dialysis Joanne HUFF MD Apr 26, 2019 12:19
--- NOTE | 2019-04-26 13:30 | NUR ---
SS following up with discharge planning. Pt accepted at [facility], ; fax [phone]. Discharge orders received and phoned and faxed to [facility]. Pt will discharge today and go to [facility] at 1500 via [facility] ambulance, . Pt, pt's son, and pt's RN notified.
[2019-04-26 14:30] VITALS: BP 113/51
[2019-04-26] MEDS ORDERED: WARFARIN 7.5 MG TABLET. PO ONE (16:00)
== END 2019-04-26 16:05 | DRG 871 ==
LOC: ER 11:08 → ED HOLD 13:20 → 6 SOUTH 15:34 → 2 NORTH 18:27
PROVIDERS: ADMIT Family Medicine; ATTEND Family Medicine
PROC: 5A09357 Assistance with Respiratory Ventilation, Less than 24 Consecutive Hours, Continuous Positive Airway Pressure (ICD-10-PCS; 2019-04-14)
PROC: 5A1D70Z Performance of Urinary Filtration, Intermittent, Less than 6 Hours Per Day (ICD-10-PCS; 2019-04-14)
PROC: 5A1D70Z Performance of Urinary Filtration, Intermittent, Less than 6 Hours Per Day (ICD-10-PCS; 2019-04-15)
PROC: 5A1D70Z Performance of Urinary Filtration, Intermittent, Less than 6 Hours Per Day (ICD-10-PCS; 2019-04-17)
PROC: 0W993ZZ Drainage of Right Pleural Cavity, Percutaneous Approach (ICD-10-PCS; principal; 2019-04-19)
PROC: 5A1D70Z Performance of Urinary Filtration, Intermittent, Less than 6 Hours Per Day (ICD-10-PCS; 2019-04-20)
PROC: 5A1D70Z Performance of Urinary Filtration, Intermittent, Less than 6 Hours Per Day (ICD-10-PCS; 2019-04-22)
PROC: 5A1D70Z Performance of Urinary Filtration, Intermittent, Less than 6 Hours Per Day (ICD-10-PCS; 2019-04-24)
DX: A41.9 Sepsis, unspecified organism (principal); J69.0 Pneumonitis due to inhalation of food and vomit; I50.33 Acute on chronic diastolic (congestive) heart failure; J96.02 Acute respiratory failure with hypercapnia; N18.6 End stage renal disease; G92 Toxic encephalopathy; D61.818 Other pancytopenia; D68.9 Coagulation defect, unspecified; E87.4 Mixed disorder of acid-base balance; I13.2 Hypertensive heart and chronic kidney disease with heart failure and with stage 5 chronic kidney disease, or end stage renal disease; C55 Malignant neoplasm of uterus, part unspecified; D63.1 Anemia in chronic kidney disease; E03.9 Hypothyroidism, unspecified; E11.22 Type 2 diabetes mellitus with diabetic chronic kidney disease; E11.51 Type 2 diabetes mellitus with diabetic peripheral angiopathy without gangrene; E66.01 Morbid (severe) obesity due to excess calories; E78.00 Pure hypercholesterolemia, unspecified; E78.5 Hyperlipidemia, unspecified; E83.51 Hypocalcemia; G25.0 Essential tremor; G89.29 Other chronic pain; I25.10 Atherosclerotic heart disease of native coronary artery without angina pectoris; J45.909 Unspecified asthma, uncomplicated; K21.9 Gastro-esophageal reflux disease without esophagitis; K44.9 Diaphragmatic hernia without obstruction or gangrene; K59.00 Constipation, unspecified; J32.3 Chronic sphenoidal sinusitis; Z79.891 Long term (current) use of opiate analgesic; Z79.899 Other long term (current) drug therapy; Z82.49 Family history of ischemic heart disease and other diseases of the circulatory system; Z85.42 Personal history of malignant neoplasm of other parts of uterus; Z83.3 Family history of diabetes mellitus; Z86.718 Personal history of other venous thrombosis and embolism; Z90.710 Acquired absence of both cervix and uterus; Z99.2 Dependence on renal dialysis; Z99.3 Dependence on wheelchair; F41.9 Anxiety disorder, unspecified; M19.90 Unspecified osteoarthritis, unspecified site
CPT/HCPCS: 32555; 36415; 36600; 70450; 70551; 71045; 71250; 74022; 80048; 80053; 80061; 80202; 80329; 82550; 82607; 82805; 82962; 83605; 83615; 83690; 83735; 83880; 84100; 84145; 84157; 84439; 84443; 84481; 84484; 85025; 85610; 87040; 87071; 87075; 87077; 87205; 88112; 88305; 93005; 94640; 94660; 94760; 95816; G0480; J0610; J0882; J1644; J1956; J2543; J3370; J3430; J7040; J7042; J7050; J7613; 97110; 97530; 97535; G0378; J7030

== ENCOUNTER → 2019-05-28 | Outpatient (CLI) | payer MEDICARE, OTHER ==
[~2019-05-28] MED LIST changes: +CLON0.1T12 PO; +POLY17PO28 PO; +TOPI25TA52 PO
[2019-05-28 09:34] LABS: PROTHROMBIN TIME PATIENT 15.8 SEC (11.7-14.0)
== END | disposition home or self-care (01) ==
LOC: SPEC 01:13 → EDSTATUS 11:49
PROVIDERS: ATTEND Family Medicine
DX: J98.2 Interstitial emphysema (principal); Z79.01 Long term (current) use of anticoagulants
CPT/HCPCS: 36415; 85610

== ENCOUNTER 2019-07-06 11:24 | Inpatient (IN) | payer MEDICARE, OTHER ==
[~2019-07-06] VITALS: Ht 167.6 cm; Wt 117.1 kg
[2019-07-06] MEDS ORDERED: FAMOTIDINE 20 MG/2 ML VIAL IVP ONE (11:45)
--- NOTE | 2019-07-06 11:47 | PHYS DOC ---
Past Medical History Past Medical History: Anemia, CAD, Cancer, Diabetes-Type II, High Cholesterol, Heart Disease, Hypertension, Renal Failure, Other Additional Past Medical Histor: uterine cancer Past Surgical History: Hysterectomy, Other Additional Past Surgical Histo: FISTULA- L upper arm Alcohol Use: None Drug Use: None Adult General Chief Complaint Chief Complaint: RECTAL BLEED HPI HPI Patient is a 73 year old female with history of multiple medical conditions including renal failure on dialysis, diabetes, hypertension, high cholesterol, CAD, anemia, currently on Coumadin but states she doesn't know why but reports takes 5 mg daily who presents to the ED today complaining of bloody stools that were noted yesterday. Patient reports she was constipated for one week, she reports she was seen by Dr. Huff for constipation, she states she was given 2 tablets of constipation medicine which she took, she states she had successful bowel movements including yesterday, she states yesterday's to was bloody. She states the daughter requested her to come to the ED to be evaluated. Patient denies any abdominal pain, denies any nausea or vomiting. Review of Systems Review of Systems Constitutional: Denies fever or chills [] Eyes: Denies change in visual acuity, redness, or eye pain [] HENT: Denies nasal congestion or sore throat [] Respiratory: Denies cough or shortness of breath [] Cardiovascular: No additional information not addressed in HPI [] GI: Reports bloody stools. Denies abdominal pain, nausea, vomiting, bloody stools or diarrhea [] : Denies dysuria or hematuria [] Musculoskeletal: Denies back pain or joint pain [] Integument: Denies rash or skin lesions [] Neurologic: Denies headache, focal weakness or sensory changes [] All other systems were reviewed and found to be within normal limits, except as documented in this note. Current Medications Current Medications Current Medications Medications (Trade) Dose Ordered Sig/Kenney Start Time Stop Time Status Last Admin Dose Admin Acetaminophen (Tylenol) 650 mg PRN Q4HRS PRN 07/06/19 16:00 Acetaminophen/ Hydrocodone Bitart (Lortab 7.5/325) 1 tab PRN BID PRN 07/06/19 16:15 Albuterol Sulfate (Ventolin Neb Soln) 2.5 mg PRN Q4HRS PRN 07/06/19 16:00 Amlodipine Besylate (Norvasc) 5 mg DAILY 07/07/19 09:00 UNV Cinacalcet (Sensipar) 30 mg DAILY 07/07/19 09:00 UNV Clonidine HCl (Catapres) 0.1 mg PRN Q6HRS PRN 07/06/19 16:15 Docusate Sodium (Colace) 100 mg PRN BID PRN 07/06/19 16:00 Famotidine (Pepcid Vial) 20 mg 1X ONCE 07/06/19 11:45 07/06/19 11:46 DC 07/06/19 14:29 20 MG Fluticasone Propionate (Flonase) 2 spray DAILY 07/07/19 09:00 UNV Gabapentin (Neurontin) 300 mg QHS 07/06/19 21:00 UNV Guaifenesin (Robitussin) 200 mg PRN Q4HRS PRN 07/06/19 16:00 UNV Levothyroxine Sodium (Synthroid) 50 mcg DAILY 07/07/19 09:00 UNV Lorazepam (Ativan) 0.5 mg PRN Q4HRS PRN 07/06/19 16:00 Midodrine (Proamatine) 5 mg TID 07/06/19 21:00 UNV Morphine Sulfate (Morphine Sulfate) 4 mg PRN Q2HR PRN 07/06/19 16:15 07/07/19 16:14 Non-Formulary Medication (Albuterol Sulfate (Ventolin Hfa Inhaler)) 2 puff BID 07/06/19 21:00 UNV Non-Formulary Medication (Ranitidine Hcl ) 300 mg BID 07/06/19 21:00 UNV Ondansetron HCl (Zofran) 4 mg PRN Q8HRS PRN 07/06/19 16:15 07/07/19 16:14 Polyethylene Glycol (miraLAX PACKET) 17 gm PRN DAILY PRN 07/06/19 16:15 UNV Sevelamer Carbonate (Renvela) 800 mg TIDWMEALS 07/06/19 17:00 UNV Sodium Chloride (Normal Saline Flush) 3 ml QSHIFT PRN 07/06/19 16:00 UNV Topiramate (Topamax) 25 mg DAILY 07/07/19 09:00 UNV Vitamin B Complex/ Vitamin C (Sandra-Donovan) 1 tab DAILY 07/07/19 09:00 UNV Allergies Allergies Allergies Coded Allergies Type Severity Reaction Last Updated Verified No Known Medication Allergies Allergy Unknown 05/07/17 Yes Physical Exam Physical Exam Constitutional: Well developed, well nourished, no acute distress, non-toxic appearance. [] HENT: Normocephalic, atraumatic, bilateral external ears normal, oropharynx moist, no oral exudates, nose normal. [] Eyes: PERRLA, EOMI, conjunctiva normal, no discharge. [] Neck: Normal range of motion, no tenderness, supple, no stridor. [] Cardiovascular:Heart rate regular rhythm, no murmur [] Lungs & Thorax: Bilateral breath sounds clear to auscultation [] Abdomen: Bowel sounds normal, soft, no tenderness, no masses, no pulsatile masses. [] Skin: Warm, dry, no erythema, no rash. [] Back: No tenderness, no CVA tenderness. [] Extremities: No tenderness, no cyanosis, no clubbing, ROM intact, no edema. [] Neurologic: Alert and oriented X 3, normal motor function, normal sensory function, no focal deficits noted. [] Psychologic: Affect normal, judgement normal, mood normal. [] Current Patient Data Vital Signs Vital Signs Date Time Temp Pulse Resp B/P (MAP) Pulse Ox O2 Delivery O2 Flow Rate FiO2 07/06/19 16:01 64 16 184/75 (111) 97 Room Air 07/06/19 11:37 99.0 99.0 Lab Values Laboratory Tests Test 07/06/19 13:23 07/06/19 14:07 Stool Occult Blood Positive (NEG) White Blood Count 4.5 x10^3/uL (4.0-11.0) Red Blood Count 3.76 x10^6/uL (3.50-5.40) Hemoglobin 12.5 g/dL (12.0-15.5) Hematocrit 39.1 % (36.0-47.0) Mean Corpuscular Volume 104 fL (79-100) H Mean Corpuscular Hemoglobin 33 pg (25-35) Mean Corpuscular Hemoglobin Concent 32 g/dL (31-37) Red Cell Distribution Width 15.2 % (11.5-14.5) H Platelet Count 150 x10^3/uL (140-400) Neutrophils (%) (Auto) 62 % (31-73) Lymphocytes (%) (Auto) 26 % (24-48) Monocytes (%) (Auto) 9 % (0-9) Eosinophils (%) (Auto) 2 % (0-3) Basophils (%) (Auto) 1 % (0-3) Neutrophils # (Auto) 2.8 x10^3/uL (1.8-7.7) Lymphocytes # (Auto) 1.2 x10^3/uL (1.0-4.8) Monocytes # (Auto) 0.4 x10^3/uL (0.0-1.1) Eosinophils # (Auto) 0.1 x10^3/uL (0.0-0.7) Basophils # (Auto) 0.0 x10^3/uL (0.0-0.2) Prothrombin Time 65.0 SEC (11.7-14.0) H Prothrombin Time INR 7.6 (0.8-1.1) *H Activated Partial Thromboplast Time 69 SEC (24-38) H Sodium Level 139 mmol/L (136-145) Potassium Level 4.2 mmol/L (3.5-5.1) Chloride Level 106 mmol/L (98-107) Carbon Dioxide Level 21 mmol/L (21-32) Anion Gap 12 (6-14) Blood Urea Nitrogen 19 mg/dL (7-20) Creatinine 4.3 mg/dL (0.6-1.0) H Estimated GFR (Cockcroft-Gault) 12.1 BUN/Creatinine Ratio 4 (6-20) L Glucose Level 98 mg/dL (70-99) Calcium Level 8.6 mg/dL (8.5-10.1) Total Bilirubin 0.7 mg/dL (0.2-1.0) Aspartate Amino Transferase (AST) 18 U/L (15-37) Alanine Aminotransferase (ALT) 10 U/L (14-59) L Alkaline Phosphatase 362 U/L (46-116) H Total Protein 7.2 g/dL (6.4-8.2) Albumin 3.3 g/dL (3.4-5.0) L Albumin/Globulin Ratio 0.8 (1.0-1.7) L Lipase 51 U/L (73-393) L Laboratory Tests 12/24/19 14:07 Laboratory Tests 07/06/19 14:07 EKG EKG [] Radiology/Procedures Radiology/Procedures [] Course & Med Decision Making Course & Med Decision Making Pertinent Labs and Imaging studies reviewed. (See chart for details) This is a 73-year-old female patient presenting to the ED today complaining of bloody stools noted yesterday. Patient is on Coumadin 5 mg daily. She was constipated and took some medicine for it and had a successful bowel movement yesterday and the stool had blood in it. CBC with a normal WBC, normal hemoglobin and hematocrit, INR 7.6. Positive Hemoccult 15:[address] Mcneal who accepted patient for admission. He requested we give patient FFP. One unit was ordered. Dragon Disclaimer Dragon Disclaimer This electronic medical record was generated, in whole or in part, using a voice recognition dictation system. Departure Departure Impression: Primary Impression: Rectal bleeding Additional Impressions: Elevated INR ESRD (end stage renal disease) on dialysis Disposition: ADMITTED INPATIENT Condition: STABLE Referrals: Joanne HUFF MD (PCP) Problem Qualifiers FAHAD TAYLOR CONSUMER RELATIONS COMPLAINT CLERK Jul 06, 2019 11:47
[2019-07-06 13:53] LABS: FECAL OB PT POSITIVE (NEG)
[2019-07-06 14:19] LABS: BASO % 1 % (0-3); EOS # 0.1 x10^3/uL (0.0-0.7); EOS % 2 % (0-3); HEMATOCRIT 39.1 % (36.0-47.0); HEMOGLOBIN 12.5 g/dL (12.0-15.5); LYMPH # 1.2 x10^3/uL (1.0-4.8); LYMPH % 26 % (24-48); MEAN CORPUSCULAR HEMOGLOBIN 33 pg (25-35); MEAN CORPUSCULAR HGB CONC 32 g/dL (31-37); MEAN CORPUSCULAR VOLUME 104 fL (79-100); MONO # 0.4 x10^3/uL (0.0-1.1); MONO % 9 % (0-9); NEUT # 2.8 x10^3/uL (1.8-7.7); NEUT % 62 % (31-73); PLATELET COUNT 150 x10^3/uL (140-400); RED BLOOD COUNT 3.76 x10^6/uL (3.50-5.40); RED CELL DISTRIBUTION WIDTH 15.2 % (11.5-14.5); WHITE BLOOD COUNT 4.5 x10^3/uL (4.0-11.0)
[2019-07-06 14:45] LABS: CALCIUM 8.6 mg/dL (8.5-10.1); CREATININE 4.3 mg/dL (0.6-1.0); GFR 12.1; POTASSIUM 4.2 mmol/L (3.5-5.1)
[2019-07-06 14:59] LABS: ALBUMIN 3.3 g/dL (3.4-5.0); ALBUMIN/GLOBULIN RATIO 0.8 (1.0-1.7); TOTAL BILIRUBIN 0.7 mg/dL (0.2-1.0); TOTAL PROTEIN 7.2 g/dL (6.4-8.2)
--- NOTE | 2019-07-06 15:16 | PDOC1 ---
History and Physical Date of Admission Date of Admission DATE: 07/06/19 TIME: 15:15 Identification/Chief Complaint Chief Complaint seen in er with inr of [age] year old female with history of multiple medical conditions including renal failure, diabetes, hypertension, high cholesterol, CAD, anemia, currently on Coumadin but states she doesn't know why but reports takes 5 mg daily who presents to the ED today complaining of bloody stools that were noted yesterday. Patient reports she was constipated for one week, she reports she was seen by Dr. Moore DAUGHTER NOTED BLOOD IN STOOL YESTERDAY AND TODAY, INR IS SUPRA-THERAPEUTIC AT 7.6 Past Medical History Past Medical History Past Medical History Past Medical History Past Medical History: Anemia, CAD, Cancer, Diabetes-Type II, High Cholesterol, Heart Disease, Hypertension, Renal Failure, Other Additional Past Medical Histor: uterine cancer Past Surgical History: Hysterectomy, Other Additional Past Surgical Histo: FISTULA- L upper arm Alcohol Use: None Drug Use: None fhx obesity Cardiovascular: HTN, Other Pulmonary: Asthma GI: GERD Heme/Onc: Anemia NOS, Cancer Psych: Anxiety Musculoskeletal: Osteoarthritis Renal/: Chronic renal failure Endocrine: Diabetes, Hypothyroidism Past Surgical History Past Surgical History: Tonsillectomy, Hysterectomy, Other Family History Family History: Diabetes, Hypertension Social History Smoke: No ALCOHOL: none Drugs: None Current Problem List Problem List Problems Medical Problems: (1) Rectal bleeding Status: Acute Current Medications Current Medications Current Medications Famotidine (Pepcid Vial) 20 mg 1X ONCE IVP Last administered on 07/06/19at 14:29; Start 07/06/19 at 11:45; Stop 07/06/19 at 11:46; Status DC Active Scripts Active Catapres (Clonidine Hcl) 0.1 Mg Tablet 0.1 Mg PO PRN Q6HRS PRN 30 Days Topamax (Topiramate) 25 Mg Tablet 25 Mg PO DAILY 30 Days Polyethylene Glycol 3350 17 Gm Powd.pack 17 Gm PO PRN DAILY PRN 30 Days Gabapentin 300 Mg Capsule 300 Mg PO QHS 30 Days Reported Coumadin (Warfarin Sodium) 7.5 Mg Tablet 1 Tab PO DAILY Hydrocodone-Apap 7.5-325 (Hydrocodone Bit/Acetaminophen) 1 Each Tablet 1 Tab PO BID PRN Fluticasone Propionate Nasal [place] (Fluticasone Propionate) 16 Gm [place].susp 2 [place] NS DAILY Renvela (Sevelamer Carbonate) 800 Mg Tablet 800 Mg PO TIDWMEALS Ibuprofen 800 Mg Tablet 800 Mg PO PRN Q6HRS PRN Vitamin D3 (Cholecalciferol (Vitamin D3)) 2,000 Unit Tab.chew 1,000 Unit PO Ventolin Hfa Inhaler (Albuterol Sulfate) 18 Gm Hfa.aer.ad 2 Puff INH BID Amlodipine Besylate 5 Mg Tablet 5 Mg PO DAILY Nephro-Donovan Tablet (Folic Acid/Vitamin B Comp W-C) 0.8 Mg Tablet 0.8 Mg PO DAILY Sensipar (Cinacalcet Hcl) 30 Mg Tablet 30 Mg PO DAILY Low Dose Aspirin Ec (Aspirin) 81 Mg Tablet.dr 1 Tab PO DAILY Midodrine Hcl 5 Mg Tablet 5 Mg PO PRN PRN Levothyroxine Sodium 50 Mcg Tablet 50 Mcg PO DAILY Ranitidine Hcl 300 Mg Capsule 300 Mg PO BID Allergies Allergies: Coded Allergies: No Known Medication Allergies (Verified Allergy, Unknown, 05/07/17) ROS Review of System Review of Systems Review of Systems Constitutional: Denies fever or chills [] Eyes: Denies change in visual acuity, redness, or eye pain [] HENT: Denies nasal congestion or sore throat [] Respiratory: Denies cough or shortness of breath [] Cardiovascular: No additional information not addressed in HPI [] GI: Reports bloody stools. Denies abdominal pain, nausea, vomiting, bloody stools or diarrhea [] : Denies dysuria or hematuria [] Musculoskeletal: Denies back pain or joint pain [] Integument: Denies rash or skin lesions [] Neurologic: Denies headache, focal weakness or sensory changes [] 14 pt systems were reviewed and found to be within normal limits, except as documented Respiratory: No: Cough, Hemoptysis, Orthopnea, Pleuritic Pain, Shortness of breath, SOB with excertion, Sputum Changes, Stridor, Tachypnea, Wheezing, Other Gastrointestinal: Yes Abdominal Pain, Yes Constipation Physical Exam Physical Exam Physical Exam Physical Exam Constitutional: Well developed, well nourished, no acute distress, non-toxic appearance. [] HENT: Normocephalic, atraumatic, bilateral external ears normal, oropharynx moist, no oral exudates, nose normal. [] Eyes: PERRLA, EOMI, conjunctiva normal, no discharge. [] Neck: Normal range of motion, no tenderness, supple, no stridor. [] Cardiovascular:Heart rate regular rhythm, no murmur [] Lungs & Thorax: Bilateral breath sounds clear to auscultation [] Abdomen: Bowel sounds normal, soft, no tenderness, no masses, no pulsatile masses. [] Skin: Warm, dry, no erythema, no rash. [] Back: No tenderness, no CVA tenderness. [] Extremities: No tenderness, no cyanosis, no clubbing, ROM intact, no edema. [] Neurologic: Alert and oriented X 3, normal motor function, normal sensory function, no focal deficits noted. [] Psychologic: Affect normal, judgement normal, mood normal. [] Breasts: Not examined Abdomen: Normal bowel sounds Extremities: No cyanosis Neuro: Normal speech, Cranial nerves 3-12 NL Psych/Mental Status: Mental status NL, Mood NL Vitals Vitals Vital Signs Date Time Temp Pulse Resp B/P (MAP) Pulse Ox O2 Delivery O2 Flow Rate FiO2 07/06/19 11:37 99.0 70 129/82 (98) 97 Room Air 99.0 Labs Labs Laboratory Tests Test 07/06/19 13:23 07/06/19 14:07 Stool Occult Blood Positive (NEG) White Blood Count 4.5 x10^3/uL (4.0-11.0) Red Blood Count 3.76 x10^6/uL (3.50-5.40) Hemoglobin 12.5 g/dL (12.0-15.5) Hematocrit 39.1 % (36.0-47.0) Mean Corpuscular Volume 104 fL (79-100) Mean Corpuscular Hemoglobin 33 pg (25-35) Mean Corpuscular Hemoglobin Concent 32 g/dL (31-37) Red Cell Distribution Width 15.2 % (11.5-14.5) Platelet Count 150 x10^3/uL (140-400) Neutrophils (%) (Auto) 62 % (31-73) Lymphocytes (%) (Auto) 26 % (24-48) Monocytes (%) (Auto) 9 % (0-9) Eosinophils (%) (Auto) 2 % (0-3) Basophils (%) (Auto) 1 % (0-3) Neutrophils # (Auto) 2.8 x10^3/uL (1.8-7.7) Lymphocytes # (Auto) 1.2 x10^3/uL (1.0-4.8) Monocytes # (Auto) 0.4 x10^3/uL (0.0-1.1) Eosinophils # (Auto) 0.1 x10^3/uL (0.0-0.7) Basophils # (Auto) 0.0 x10^3/uL (0.0-0.2) Prothrombin Time 65.0 SEC (11.7-14.0) Prothromb Time International Ratio 7.6 (0.8-1.1) Activated Partial Thromboplast Time 69 SEC (24-38) Sodium Level 139 mmol/L (136-145) Potassium Level 4.2 mmol/L (3.5-5.1) Chloride Level 106 mmol/L (98-107) Carbon Dioxide Level 21 mmol/L (21-32) Anion Gap 12 (6-14) Blood Urea Nitrogen 19 mg/dL (7-20) Creatinine 4.3 mg/dL (0.6-1.0) Estimated GFR (Cockcroft-Gault) 12.1 BUN/Creatinine Ratio 4 (6-20) Glucose Level 98 mg/dL (70-99) Calcium Level 8.6 mg/dL (8.5-10.1) Total Bilirubin 0.7 mg/dL (0.2-1.0) Aspartate Amino Transf (AST/SGOT) 18 U/L (15-37) Alanine Aminotransferase (ALT/SGPT) 10 U/L (14-59) Alkaline Phosphatase 362 U/L (46-116) Total Protein 7.2 g/dL (6.4-8.2) Albumin 3.3 g/dL (3.4-5.0) Albumin/Globulin Ratio 0.8 (1.0-1.7) Lipase 51 U/L (73-393) Laboratory Tests Test 07/06/19 13:23 07/06/19 14:07 Stool Occult Blood Positive (NEG) White Blood Count 4.5 x10^3/uL (4.0-11.0) Red Blood Count 3.76 x10^6/uL (3.50-5.40) Hemoglobin 12.5 g/dL (12.0-15.5) Hematocrit 39.1 % (36.0-47.0) Mean Corpuscular Volume 104 fL (79-100) Mean Corpuscular Hemoglobin 33 pg (25-35) Mean Corpuscular Hemoglobin Concent 32 g/dL (31-37) Red Cell Distribution Width 15.2 % (11.5-14.5) Platelet Count 150 x10^3/uL (140-400) Neutrophils (%) (Auto) 62 % (31-73) Lymphocytes (%) (Auto) 26 % (24-48) Monocytes (%) (Auto) 9 % (0-9) Eosinophils (%) (Auto) 2 % (0-3) Basophils (%) (Auto) 1 % (0-3) Neutrophils # (Auto) 2.8 x10^3/uL (1.8-7.7) Lymphocytes # (Auto) 1.2 x10^3/uL (1.0-4.8) Monocytes # (Auto) 0.4 x10^3/uL (0.0-1.1) Eosinophils # (Auto) 0.1 x10^3/uL (0.0-0.7) Basophils # (Auto) 0.0 x10^3/uL (0.0-0.2) Prothrombin Time 65.0 SEC (11.7-14.0) Prothromb Time International Ratio 7.6 (0.8-1.1) Activated Partial Thromboplast Time 69 SEC (24-38) Sodium Level 139 mmol/L (136-145) Potassium Level 4.2 mmol/L (3.5-5.1) Chloride Level 106 mmol/L (98-107) Carbon Dioxide Level 21 mmol/L (21-32) Anion Gap 12 (6-14) Blood Urea Nitrogen 19 mg/dL (7-20) Creatinine 4.3 mg/dL (0.6-1.0) Estimated GFR (Cockcroft-Gault) 12.1 BUN/Creatinine Ratio 4 (6-20) Glucose Level 98 mg/dL (70-99) Calcium Level 8.6 mg/dL (8.5-10.1) Total Bilirubin 0.7 mg/dL (0.2-1.0) Aspartate Amino Transf (AST/SGOT) 18 U/L (15-37) Alanine Aminotransferase (ALT/SGPT) 10 U/L (14-59) Alkaline Phosphatase 362 U/L (46-116) Total Protein 7.2 g/dL (6.4-8.2) Albumin 3.3 g/dL (3.4-5.0) Albumin/Globulin Ratio 0.8 (1.0-1.7) Lipase 51 U/L (73-393) VTE Prophylaxis Ordered VTE Prophylaxis Devices: Yes VTE Pharmacological Prophylaxi: No Assessment/Plan Assessment/Plan Impression: acute Rectal bleeding supratherapeutic INR ABDOMINAL DISCOMFORT MORBID OBESITY RECENT OBSTIPATION ESRD ON DIALYSIS PLAN ADMIT INR IN AM 1 UNIT FFP SERIAL CBC CONSULT GI CT ABD NO IV CONTRAST NEPHROLOGY CONSULT RAJENDRA SOLARES MD Jul 06, 2019 15:16
[2019-07-06] MEDS ORDERED: guaiFENesin ORAL 200 MG/10 ML LIQUID. PO PRN (16:00)
[2019-07-06] MEDS ORDERED: ALBUTEROL SULFATE 2.5 MG/3 ML NEBU. NEB PRN (16:00)
[2019-07-06] MEDS ORDERED: LORazepam 0.5 MG TABLET PO PRN (16:00)
[2019-07-06] MEDS ORDERED: ONDANSETRON PF 4 MG/2 ML VIAL. IV PRN ×2 (16:00→16:15)
[2019-07-06] MEDS ORDERED: ACETAMINOPHEN 325 MG TABLET. PO PRN (16:00)
[2019-07-06] MEDS ORDERED: 0.9 % SODIUM CHLORIDE 10 ML DISP.SYRIN. IV PRN (16:00)
[2019-07-06] MEDS ORDERED: DOCUSATE SODIUM 100 MG CAPSULE. PO PRN (16:00)
[2019-07-06] MEDS ORDERED: cloNIDine HCL 0.1 MG TABLET PO PRN ×2 (16:00→16:15)
[2019-07-06] MEDS ORDERED: POLYETHYLENE GLYCOL 3350 17 GM PACKET. PO PRN (16:15)
[2019-07-06] MEDS ORDERED: MORPHINE SULFATE 4 MG/ML VIAL. IV PRN (16:15)
[2019-07-06 17:40] VITALS: BP 150/68
[2019-07-06 18:50] VITALS: BP 127/58
[2019-07-06 19:34] VITALS: BP 151/64
[2019-07-06] MEDS: ALBUTEROL SULFATE 2.5 MG/3 ML NEBU. NEB SCH (20:08)
[2019-07-06] MEDS: GABAPENTIN 300 MG CAPSULE. PO SCH (21:13)
[2019-07-06 23:15] VITALS: BP 119/58
[2019-07-07 03:07] VITALS: BP 99/46
[2019-07-07 04:46] LABS: BASO % 1 % (0-3); EOS # 0.1 x10^3/uL (0.0-0.7); EOS % 3 % (0-3); HEMATOCRIT 35.3 % (36.0-47.0); HEMOGLOBIN 11.1 g/dL (12.0-15.5); LYMPH % 31 % (24-48); MEAN CORPUSCULAR HEMOGLOBIN 33 pg (25-35); MEAN CORPUSCULAR HGB CONC 32 g/dL (31-37); MEAN CORPUSCULAR VOLUME 105 fL (79-100); MONO # 0.3 x10^3/uL (0.0-1.1); MONO % 10 % (0-9); NEUT # 1.8 x10^3/uL (1.8-7.7); NEUT % 56 % (31-73); PLATELET COUNT 140 x10^3/uL (140-400); RED BLOOD COUNT 3.37 x10^6/uL (3.50-5.40); RED CELL DISTRIBUTION WIDTH 15.1 % (11.5-14.5); WHITE BLOOD COUNT 3.2 x10^3/uL (4.0-11.0)
[2019-07-07 04:53] LABS: PROTHROMBIN TIME PATIENT 41.9 SEC (11.7-14.0)
[2019-07-07 04:57] LABS: CALCIUM 8.1 mg/dL (8.5-10.1); GFR 10.2; POTASSIUM 4.1 mmol/L (3.5-5.1)
[2019-07-07 05:01] LABS: ALBUMIN 2.9 g/dL (3.4-5.0); PHOSPHORUS 3.2 mg/dL (2.6-4.7)
[2019-07-07] MEDS: MIDODRINE 5 MG TABLET PO SCH ×3 (05:33→17:46)
[2019-07-07 07:05] VITALS: BP 112/45
[2019-07-07] MEDS: ALBUTEROL SULFATE 2.5 MG/3 ML NEBU. NEB SCH ×2 (08:10→21:40)
[2019-07-07] MEDS: FOLIC/VIT B COMP W-C (RENAL) TABLET. PO SCH (10:07)
[2019-07-07] MEDS: TOPIRAMATE 25 MG TABLET. PO SCH (10:07)
[2019-07-07] MEDS: SEVELAMER CARBONATE 800 MG TABLET. PO SCH ×3 (10:08→17:46)
[2019-07-07] MEDS: amLODIPine BESYLATE 5 MG TABLET PO SCH (10:08)
[2019-07-07] MEDS: CINACALCET HCL 30 MG TABLET PO SCH (10:08)
[2019-07-07] MEDS: FAMOTIDINE 20 MG TABLET. PO SCH (10:08)
[2019-07-07] MEDS: FLUTICASONE 50MCG/NASAL SPRAY 16GM BOTTLE. NS SCH (10:09)
[2019-07-07] MEDS: LEVOTHYROXINE 50 MCG TABLET PO SCH (10:11)
[2019-07-07 10:25] VITALS: BP 149/88
--- NOTE | 2019-07-07 11:29 | PDOC2 ---
GI CONSULT Reason For Consult: rectal bleed HPI: HPI: 73 year old female with history of multiple medical conditions including renal failure, diabetes, hypertension, high cholesterol, CAD, anemia, currently on Coumadin with inr of 7.6 but states she doesn't know why but reports takes 5 mg daily who presents to the ED today complaining of bloody stools that were noted yesterday. Patient reports she was constipated for one week, and was given a laxative. She had hard stool and straining followed by [facility]. Inital Hgb was 12.5 with MCV 105 and is now 11.1 with MCV 105. She has never had an EGD or colonoscopy. Currentl INR is 4.4 CT A/P has been ordered by primary. PMH: PMH: Past Medical History Past Medical History Past Medical History Past Medical History Past Medical History: Anemia, CAD, Cancer, Diabetes-Type II, High Cholesterol, Heart Disease, Hypertension, Renal Failure, Other Additional Past Medical Histor: uterine cancer Past Surgical History: Hysterectomy, Other Additional Past Surgical Histo: FISTULA- L upper arm Alcohol Use: None Drug Use: None fhx obesity Cardiovascular: HTN, Other Pulmonary: Asthma GI: GERD Heme/Onc: Anemia NOS, Cancer Psych: Anxiety Musculoskeletal: Osteoarthritis Renal/: Chronic renal failure Endocrine: Diabetes, Hypothyroidism Past Surgical History Past Surgical History: Tonsillectomy, Hysterectomy, Other Family History Family History: Diabetes, Hypertension Social History Smoke: No ALCOHOL: none Drugs: None Current Problem List Problem List Problems Medical Problems: (1) Rectal bleeding Status: Acute Current Medications Current Medications Current Medications Famotidine (Pepcid Vial) 20 mg 1X ONCE IVP Last administered on 07/06/19at 14:29; Start 07/06/19 at 11:45; Stop 07/06/19 at 11:46; Status DC Active Scripts Active Catapres (Clonidine Hcl) 0.1 Mg Tablet 0.1 Mg PO PRN Q6HRS PRN 30 Days Topamax (Topiramate) 25 Mg Tablet 25 Mg PO DAILY 30 Days Polyethylene Glycol 3350 17 Gm Powd.pack 17 Gm PO PRN DAILY PRN 30 Days Gabapentin 300 Mg Capsule 300 Mg PO QHS 30 Days Reported Coumadin (Warfarin Sodium) 7.5 Mg Tablet 1 Tab PO DAILY Hydrocodone-Apap 7.5-325 (Hydrocodone Bit/Acetaminophen) 1 Each Tablet 1 Tab PO BID PRN Fluticasone Propionate Nasal [place] (Fluticasone Propionate) 16 Gm [place].susp 2 [place] NS DAILY Renvela (Sevelamer Carbonate) 800 Mg Tablet 800 Mg PO TIDWMEALS Ibuprofen 800 Mg Tablet 800 Mg PO PRN Q6HRS PRN Vitamin D3 (Cholecalciferol (Vitamin D3)) 2,000 Unit Tab.chew 1,000 Unit PO Ventolin Hfa Inhaler (Albuterol Sulfate) 18 Gm Hfa.aer.ad 2 Puff INH BID Amlodipine Besylate 5 Mg Tablet 5 Mg PO DAILY Nephro-Donovan Tablet (Folic Acid/Vitamin B Comp W-C) 0.8 Mg Tablet 0.8 Mg PO DAILY Sensipar (Cinacalcet Hcl) 30 Mg Tablet 30 Mg PO DAILY Low Dose Aspirin Ec (Aspirin) 81 Mg Tablet.dr 1 Tab PO DAILY Midodrine Hcl 5 Mg Tablet 5 Mg PO PRN PRN Levothyroxine Sodium 50 Mcg Tablet 50 Mcg PO DAILY Ranitidine Hcl 300 Mg Capsule 300 Mg PO BID Allergies Allergies: Coded Allergies: No Known Medication Allergies (Verified Allergy, Unknown, 05/07/17) FH: Family History: No pertinent hx Social History: Smoke: No ALCOHOL: none Drugs: None ROS: GEN: Denies fevers, chills, sweats HEENT: Denies blurred vision, sore throat CV: Denies chest pain RESP: Denies shortness of air, cough GI: Per HPI : Denies hematuria, dysuria ENDO: Denies weight changes NEURO: Denies confusion, dizziness MSK: Denies weakness, joint pain/swelling SKIN: Denies jaundice, pruritus VItals: Vitals: Vital Signs Date Time Temp Pulse Resp B/P (MAP) Pulse Ox O2 Delivery O2 Flow Rate FiO2 07/07/19 10:25 98.0 80 20 149/88 (108) 97 Room Air 98.0 Labs: Labs: Laboratory Tests Test 07/06/19 13:23 07/06/19 14:07 07/06/19 18:02 07/06/19 20:52 Stool Occult Blood Positive (NEG) White Blood Count 4.5 x10^3/uL (4.0-11.0) Red Blood Count 3.76 x10^6/uL (3.50-5.40) Hemoglobin 12.5 g/dL (12.0-15.5) Hematocrit 39.1 % (36.0-47.0) Mean Corpuscular Volume 104 fL (79-100) Mean Corpuscular Hemoglobin 33 pg (25-35) Mean Corpuscular Hemoglobin Concent 32 g/dL (31-37) Red Cell Distribution Width 15.2 % (11.5-14.5) Platelet Count 150 x10^3/uL (140-400) Neutrophils (%) (Auto) 62 % (31-73) Lymphocytes (%) (Auto) 26 % (24-48) Monocytes (%) (Auto) 9 % (0-9) Eosinophils (%) (Auto) 2 % (0-3) Basophils (%) (Auto) 1 % (0-3) Neutrophils # (Auto) 2.8 x10^3/uL (1.8-7.7) Lymphocytes # (Auto) 1.2 x10^3/uL (1.0-4.8) Monocytes # (Auto) 0.4 x10^3/uL (0.0-1.1) Eosinophils # (Auto) 0.1 x10^3/uL (0.0-0.7) Basophils # (Auto) 0.0 x10^3/uL (0.0-0.2) Prothrombin Time 65.0 SEC (11.7-14.0) Prothromb Time International Ratio 7.6 (0.8-1.1) Activated Partial Thromboplast Time 69 SEC (24-38) Sodium Level 139 mmol/L (136-145) Potassium Level 4.2 mmol/L (3.5-5.1) Chloride Level 106 mmol/L (98-107) Carbon Dioxide Level 21 mmol/L (21-32) Anion Gap 12 (6-14) Blood Urea Nitrogen 19 mg/dL (7-20) Creatinine 4.3 mg/dL (0.6-1.0) Estimated GFR (Cockcroft-Gault) 12.1 BUN/Creatinine Ratio 4 (6-20) Glucose Level 98 mg/dL (70-99) Calcium Level 8.6 mg/dL (8.5-10.1) Total Bilirubin 0.7 mg/dL (0.2-1.0) Aspartate Amino Transf (AST/SGOT) 18 U/L (15-37) Alanine Aminotransferase (ALT/SGPT) 10 U/L (14-59) Alkaline Phosphatase 362 U/L (46-116) Total Protein 7.2 g/dL (6.4-8.2) Albumin 3.3 g/dL (3.4-5.0) Albumin/Globulin Ratio 0.8 (1.0-1.7) Lipase 51 U/L (73-393) Glucose (Fingerstick) 93 mg/dL (70-99) 98 mg/dL (70-99) Test 07/07/19 04:00 07/07/19 07:09 White Blood Count 3.2 x10^3/uL (4.0-11.0) Red Blood Count 3.37 x10^6/uL (3.50-5.40) Hemoglobin 11.1 g/dL (12.0-15.5) Hematocrit 35.3 % (36.0-47.0) Mean Corpuscular Volume 105 fL (79-100) Mean Corpuscular Hemoglobin 33 pg (25-35) Mean Corpuscular Hemoglobin Concent 32 g/dL (31-37) Red Cell Distribution Width 15.1 % (11.5-14.5) Platelet Count 140 x10^3/uL (140-400) Neutrophils (%) (Auto) 56 % (31-73) Lymphocytes (%) (Auto) 31 % (24-48) Monocytes (%) (Auto) 10 % (0-9) Eosinophils (%) (Auto) 3 % (0-3) Basophils (%) (Auto) 1 % (0-3) Neutrophils # (Auto) 1.8 x10^3/uL (1.8-7.7) Lymphocytes # (Auto) 1.0 x10^3/uL (1.0-4.8) Monocytes # (Auto) 0.3 x10^3/uL (0.0-1.1) Eosinophils # (Auto) 0.1 x10^3/uL (0.0-0.7) Basophils # (Auto) 0.0 x10^3/uL (0.0-0.2) Prothrombin Time 41.9 SEC (11.7-14.0) Prothromb Time International Ratio 4.4 (0.8-1.1) Sodium Level 141 mmol/L (136-145) Potassium Level 4.1 mmol/L (3.5-5.1) Chloride Level 107 mmol/L (98-107) Carbon Dioxide Level 23 mmol/L (21-32) Anion Gap 11 (6-14) Blood Urea Nitrogen 23 mg/dL (7-20) Creatinine 5.0 mg/dL (0.6-1.0) Estimated GFR (Cockcroft-Gault) 10.2 Glucose Level 81 mg/dL (70-99) Calcium Level 8.1 mg/dL (8.5-10.1) Phosphorus Level 3.2 mg/dL (2.6-4.7) Albumin 2.9 g/dL (3.4-5.0) Glucose (Fingerstick) 67 mg/dL (70-99) Imaging: Imaging: CT A/P pending PE: GEN: NAD HEENT: Atraumatic, PERRLA LUNGS: CTAB HEART: RRR, no murmurs ABD: NABS, S/ND/NT, no masses EXTREMITY: No edema SKIN: No rashes, no jaundice NEURO/PSYCH: A & O 3 A/P: A/P: A 1) Rectal bleed 2) Anemia 3) Macrocytosis P 1) Await imaging 2) Monitor Hgb 3) Check B12 and folic acid given macrocytosis 4) Consider colonoscopy once INR normalizes- unclear why she is on warfarin 5) PPI PHAN ANGEL MD Jul 07, 2019 11:29
--- NOTE | 2019-07-07 12:14 | PDOC ---
[employer] PROGRESS NOTE Chief Complaint Chief Complaint Rectal bleeding Coumadin toxicity ESRD on dialysis Obesity Multiple comorbidities Past Medical History: Anemia, CAD, Cancer, Diabetes-Type II, High Cholesterol, Heart Disease, Hypertension, Renal Failure, Other Additional Past Medical Histor: uterine cancer Past Surgical History: Hysterectomy, Other Additional Past Surgical Histo: FISTULA- L upper arm History of Present Illness History of Present Illness 07/07/19 Patient seen and examined Discussed with RN Reviewed GIs note Vitals/I&O Vitals/I&O: Vital Signs Date Time Temp Pulse Resp B/P (MAP) Pulse Ox O2 Delivery O2 Flow Rate FiO2 07/07/19 10:25 98.0 80 20 149/88 (108) 97 Room Air 98.0 I & O 07/06/19 07/06/19 07/07/19 15:00 23:00 07:00 Intake Total 590 ml 0 ml Output Total 0 ml Balance 590 ml 0 ml Physical Exam General: Alert, Oriented X3 Heart: Regular rate, Normal S1 Lungs: Clear, Other Abdomen: Normal bowel sounds Extremities: No cyanosis Skin: No rashes, No breakdown Labs Labs: Laboratory Tests Test 07/06/19 13:23 07/06/19 14:07 07/06/19 18:02 07/06/19 20:52 Stool Occult Blood Positive (NEG) White Blood Count 4.5 x10^3/uL (4.0-11.0) Red Blood Count 3.76 x10^6/uL (3.50-5.40) Hemoglobin 12.5 g/dL (12.0-15.5) Hematocrit 39.1 % (36.0-47.0) Mean Corpuscular Volume 104 fL (79-100) Mean Corpuscular Hemoglobin 33 pg (25-35) Mean Corpuscular Hemoglobin Concent 32 g/dL (31-37) Red Cell Distribution Width 15.2 % (11.5-14.5) Platelet Count 150 x10^3/uL (140-400) Neutrophils (%) (Auto) 62 % (31-73) Lymphocytes (%) (Auto) 26 % (24-48) Monocytes (%) (Auto) 9 % (0-9) Eosinophils (%) (Auto) 2 % (0-3) Basophils (%) (Auto) 1 % (0-3) Neutrophils # (Auto) 2.8 x10^3/uL (1.8-7.7) Lymphocytes # (Auto) 1.2 x10^3/uL (1.0-4.8) Monocytes # (Auto) 0.4 x10^3/uL (0.0-1.1) Eosinophils # (Auto) 0.1 x10^3/uL (0.0-0.7) Basophils # (Auto) 0.0 x10^3/uL (0.0-0.2) Prothrombin Time 65.0 SEC (11.7-14.0) Prothromb Time International Ratio 7.6 (0.8-1.1) Activated Partial Thromboplast Time 69 SEC (24-38) Sodium Level 139 mmol/L (136-145) Potassium Level 4.2 mmol/L (3.5-5.1) Chloride Level 106 mmol/L (98-107) Carbon Dioxide Level 21 mmol/L (21-32) Anion Gap 12 (6-14) Blood Urea Nitrogen 19 mg/dL (7-20) Creatinine 4.3 mg/dL (0.6-1.0) Estimated GFR (Cockcroft-Gault) 12.1 BUN/Creatinine Ratio 4 (6-20) Glucose Level 98 mg/dL (70-99) Calcium Level 8.6 mg/dL (8.5-10.1) Total Bilirubin 0.7 mg/dL (0.2-1.0) Aspartate Amino Transf (AST/SGOT) 18 U/L (15-37) Alanine Aminotransferase (ALT/SGPT) 10 U/L (14-59) Alkaline Phosphatase 362 U/L (46-116) Total Protein 7.2 g/dL (6.4-8.2) Albumin 3.3 g/dL (3.4-5.0) Albumin/Globulin Ratio 0.8 (1.0-1.7) Lipase 51 U/L (73-393) Glucose (Fingerstick) 93 mg/dL (70-99) 98 mg/dL (70-99) Test 07/07/19 04:00 07/07/19 07:09 07/07/19 11:22 White Blood Count 3.2 x10^3/uL (4.0-11.0) Red Blood Count 3.37 x10^6/uL (3.50-5.40) Hemoglobin 11.1 g/dL (12.0-15.5) Hematocrit 35.3 % (36.0-47.0) Mean Corpuscular Volume 105 fL (79-100) Mean Corpuscular Hemoglobin 33 pg (25-35) Mean Corpuscular Hemoglobin Concent 32 g/dL (31-37) Red Cell Distribution Width 15.1 % (11.5-14.5) Platelet Count 140 x10^3/uL (140-400) Neutrophils (%) (Auto) 56 % (31-73) Lymphocytes (%) (Auto) 31 % (24-48) Monocytes (%) (Auto) 10 % (0-9) Eosinophils (%) (Auto) 3 % (0-3) Basophils (%) (Auto) 1 % (0-3) Neutrophils # (Auto) 1.8 x10^3/uL (1.8-7.7) Lymphocytes # (Auto) 1.0 x10^3/uL (1.0-4.8) Monocytes # (Auto) 0.3 x10^3/uL (0.0-1.1) Eosinophils # (Auto) 0.1 x10^3/uL (0.0-0.7) Basophils # (Auto) 0.0 x10^3/uL (0.0-0.2) Prothrombin Time 41.9 SEC (11.7-14.0) Prothromb Time International Ratio 4.4 (0.8-1.1) Sodium Level 141 mmol/L (136-145) Potassium Level 4.1 mmol/L (3.5-5.1) Chloride Level 107 mmol/L (98-107) Carbon Dioxide Level 23 mmol/L (21-32) Anion Gap 11 (6-14) Blood Urea Nitrogen 23 mg/dL (7-20) Creatinine 5.0 mg/dL (0.6-1.0) Estimated GFR (Cockcroft-Gault) 10.2 Glucose Level 81 mg/dL (70-99) Calcium Level 8.1 mg/dL (8.5-10.1) Phosphorus Level 3.2 mg/dL (2.6-4.7) Albumin 2.9 g/dL (3.4-5.0) Glucose (Fingerstick) 67 mg/dL (70-99) 124 mg/dL (70-99) Assessment and Plan Assessmemt and Plan Problems Medical Problems: (1) Elevated INR Status: Acute (2) ESRD (end stage renal disease) on dialysis Status: Acute (3) Rectal bleeding Status: Acute Rectal bleeding Coumadin toxicity ESRD on dialysis Obesity Multiple comorbidities Past Medical History: Anemia, CAD, Cancer, Diabetes-Type II, High Cholesterol, Heart Disease, Hypertension, Renal Failure, Other Additional Past Medical Histor: uterine cancer Past Surgical History: Hysterectomy, Other Additional Past Surgical Histo: FISTULA- L upper arm Plan Awaiting imaging report GI is following She will need to continue dialysis We have reversed most of the INR from 7.6 down to 4.4 Will trend from here Home meds except for Coumadin for now Frequent labs DVT prophylaxis Full code Comment Review of Relevant I have reviewed the following items gloria (where applicable) has been applied. Medications: Current Medications Medications (Trade) Dose Ordered Sig/Kenney Route PRN Reason Start Time Stop Time Status Last Admin Dose Admin Amlodipine Besylate (Norvasc) 5 mg DAILY PO 07/07/19 09:00 07/07/19 10:08 Cinacalcet (Sensipar) 30 mg DAILY PO 07/07/19 09:00 07/07/19 10:08 Fluticasone Propionate (Flonase) 2 spray DAILY NS 07/07/19 09:00 07/07/19 10:09 Vitamin B Complex/ Vitamin C (Sandra-Donovan) 1 tab DAILY PO 07/07/19 09:00 07/07/19 10:07 Gabapentin (Neurontin) 300 mg QHS PO 07/06/19 21:00 07/06/19 21:13 Levothyroxine Sodium (Synthroid) 50 mcg DAILY PO 07/07/19 09:00 07/07/19 10:11 Midodrine (Proamatine) 5 mg [id number] PO 07/07/19 07:00 07/07/19 05:33 Sevelamer Carbonate (Renvela) 800 mg TIDWMEALS PO 07/07/19 08:00 07/07/19 10:08 Topiramate (Topamax) 25 mg DAILY PO 07/07/19 09:00 07/07/19 10:07 Albuterol Sulfate (Ventolin Neb Soln) 2.5 mg RTBID NEB 07/06/19 20:00 07/07/19 08:10 Famotidine (Pepcid) 20 mg DAILY PO 07/07/19 09:00 07/07/19 10:08 MARTHA MARRUFO III DO Jul 07, 2019 12:14
--- NOTE | 2019-07-07 12:56 | PDOC2 ---
CONSULT Date of Consult Date of Consult DATE: 07/07/19 TIME: 12:55 Reason for Consult Reason for Consult: ESRD Source Source: Chart review, Patient History of Present Illness Reason for Visit: 73 yo AA female with history of multiple medical conditions including esrd on hd , diabetes, hypertension, CAD, anemia, currently on Coumadin but states she doesn't know why presents to the ED today complaining of bloody stools . Patient reports she was constipated for one week, she reports she was seen by Dr. Moore. Currently eating Lunch, denies any complaints. States On HD TTS. Denies any SOB. Past Medical History Cardiovascular: HTN, Other Pulmonary: Asthma GI: GERD Heme/Onc: Anemia NOS, Cancer Psych: Anxiety Musculoskeletal: Osteoarthritis Renal/: Chronic renal failure Endocrine: Diabetes, Hypothyroidism Past Surgical History Past Surgical History: Tonsillectomy, Hysterectomy, Other Family History Family History: Diabetes, Hypertension Social History No ALCOHOL: none Drugs: None Lives: with Family Current Problem List Problem List Problems Medical Problems: (1) Elevated INR Status: Acute (2) ESRD (end stage renal disease) on dialysis Status: Acute (3) Rectal bleeding Status: Acute Current Medications Current Medications Current Medications Famotidine (Pepcid Vial) 20 mg 1X ONCE IVP Last administered on 07/06/19at 14:29; Start 07/06/19 at 11:45; Stop 07/06/19 at 11:46; Status DC Sodium Chloride (Normal Saline Flush) 3 ml QSHIFT PRN IV AFTER MEDS AND BLOOD DRAWS; Start 07/06/19 at 16:00 Ondansetron HCl (Zofran) 4 mg PRN Q4HRS PRN IV NAUSEA/VOMITING; Start 07/06/19 at 16:00 Acetaminophen (Tylenol) 650 mg PRN Q4HRS PRN PO TEMP OVER 100.4F OR MILD PAIN; Start 07/06/19 at 16:00 Clonidine HCl (Catapres) 0.1 mg PRN Q6HRS PRN PO SBP>160 OR DBP>90; Start 07/06/19 at 16:00; Stop 07/06/19 at 17:23; Status DC Docusate Sodium (Colace) 100 mg PRN BID PRN PO CONSTIPATION; Start 07/06/19 at 16:00 Albuterol Sulfate (Ventolin Neb Soln) 2.5 mg PRN Q4HRS PRN NEB SHORTNESS OF BREATH; Start 07/06/19 at 16:00 Guaifenesin (Robitussin) 200 mg PRN Q4HRS PRN PO COUGH; Start 07/06/19 at 16:00 Lorazepam (Ativan) 0.5 mg PRN Q4HRS PRN PO ANXIETY / AGITATION; Start 07/06/19 at 16:00 Amlodipine Besylate (Norvasc) 5 mg DAILY PO Last administered on 07/07/19 10:08; Start 07/07/19 at 09:00 Cinacalcet (Sensipar) 30 mg DAILY PO Last administered on 07/07/19 10:08; Start 07/07/19 at 09:00 Clonidine HCl (Catapres) 0.1 mg PRN Q6HRS PRN PO SBP>160 OR DBP>90; Start 07/06/19 at 16:15 Fluticasone Propionate (Flonase) 2 spray DAILY NS Last administered on 1 09/07/18 10:09; Start 07/07/19 at 09:00 Vitamin B Complex/ Vitamin C (Sandra-Donovan) 1 tab DAILY PO Last administered on 07/07/19 10:07; Start 07/07/19 at 09:00 Gabapentin (Neurontin) 300 mg QHS PO Last administered on 07/06/19 21:13; Start 07/06/19 at 21:00 Acetaminophen/ Hydrocodone Bitart (Lortab 7.5/325) 1 tab PRN BID PRN PO PAIN; Start 07/06/19 at 16:15 Levothyroxine Sodium (Synthroid) 50 mcg DAILY PO Last administered on 07/07/19 10:11; Start 07/07/19 at 09:00 Midodrine (Proamatine) 5 mg [id number] PO Last administered on 07/07/19 05:33; Start 07/07/19 at 07:00 Polyethylene Glycol (miraLAX PACKET) 17 gm PRN DAILY PRN PO CONSTIPATION; Start 07/06/19 at 16:15 Sevelamer Carbonate (Renvela) 800 mg TIDWMEALS PO Last administered on 07/07/19 10:08; Start 07/07/19 at 08:00 Topiramate (Topamax) 25 mg DAILY PO Last administered on 12/25/19at 10:07; Start 07/07/19 at 09:00 Albuterol Sulfate (Ventolin Neb Soln) 2.5 mg RTBID NEB Last administered on 07/07/19at 08:10; Start 07/06/19 at 20:00 Famotidine (Pepcid) 20 mg DAILY PO Last administered on 07/07/19at 10:08; Start 07/07/19 at 09:00 Ondansetron HCl (Zofran) 4 mg PRN Q8HRS PRN IV NAUSEA/VOMITING; Start 07/06/19 at 16:15; Stop 07/07/19 at 16:14 Morphine Sulfate (Morphine Sulfate) 4 mg PRN Q2HR PRN IV PAIN; Start 07/06/19 at 16:15; Stop 07/07/19 at 16:14 Pantoprazole Sodium (Protonix) 40 mg DAILYAC PO ; Start 07/07/19 at 12:00 Active Scripts Active Catapres (Clonidine Hcl) 0.1 Mg Tablet 0.1 Mg PO PRN Q6HRS PRN 30 Days Topamax (Topiramate) 25 Mg Tablet 25 Mg PO DAILY 30 Days Polyethylene Glycol 3350 17 Gm Powd.pack 17 Gm PO PRN DAILY PRN 30 Days Gabapentin 300 Mg Capsule 300 Mg PO QHS 30 Days Reported Coumadin (Warfarin Sodium) 7.5 Mg Tablet 1 Tab PO DAILY Hydrocodone-Apap 7.5-325 (Hydrocodone Bit/Acetaminophen) 1 Each Tablet 1 Tab PO BID PRN Fluticasone Propionate Nasal [place] (Fluticasone Propionate) 16 Gm [place].susp 2 [place] NS DAILY Renvela (Sevelamer Carbonate) 800 Mg Tablet 800 Mg PO TIDWMEALS Ibuprofen 800 Mg Tablet 800 Mg PO PRN Q6HRS PRN Vitamin D3 (Cholecalciferol (Vitamin D3)) 2,000 Unit Tab.chew 1,000 Unit PO Ventolin Hfa Inhaler (Albuterol Sulfate) 18 Gm Hfa.aer.ad 2 Puff INH BID Amlodipine Besylate 5 Mg Tablet 5 Mg PO DAILY Nephro-Donovan Tablet (Folic Acid/Vitamin B Comp W-C) 0.8 Mg Tablet 0.8 Mg PO DAILY Sensipar (Cinacalcet Hcl) 30 Mg Tablet 30 Mg PO DAILY Low Dose Aspirin Ec (Aspirin) 81 Mg Tablet.dr 1 Tab PO DAILY Midodrine Hcl 5 Mg Tablet 5 Mg PO PRN PRN Levothyroxine Sodium 50 Mcg Tablet 50 Mcg PO DAILY Ranitidine Hcl 300 Mg Capsule 300 Mg PO BID Allergies Allergies: Coded Allergies: No Known Medication Allergies (Verified Allergy, Unknown, 05/07/17) ROS Review of System Per HPI Physical Exam Physical Exam GENERAL: NAD HEENT:Oropharynx pink and moist. NECK: Supple. LUNGS: Clear to auscultation. HEART: S1, S2. ABDOMEN: Obese, soft, a EXTREMITIES: No gross edema . LUE-AVF SKIN: No rash. NEUROLOGIC: Awake and answering questions appropriately. No Bonds Vital Signs Vital Signs Date Time Temp Pulse Resp B/P (MAP) Pulse Ox O2 Delivery O2 Flow Rate FiO2 07/07/19 10:25 98.0 80 20 149/88 (108) 97 Room Air 98.0 Assessment & Plan ESRD - On HD TTS No indication for HD today Access- Hx of thrombosed left upper extremity HERO Left upper extremity fistulogram, [employer] mechanical thrombolysis thrombosed Hero graft.,Angioplasty of outflow vein stenosis on 04/01 DM- per primary Rectal bleed- GI consulted CT scan pending Anemia - FRED per protocol to keep Hgb 10-11 Hypotension - On Midodrine Morbid Obesity Bone /Mineral-On Binders and Cinacalcet Labs Labs Laboratory Tests Test 07/06/19 13:23 07/06/19 14:07 07/06/19 18:02 07/06/19 20:52 Stool Occult Blood Positive (NEG) White Blood Count 4.5 x10^3/uL (4.0-11.0) Red Blood Count 3.76 x10^6/uL (3.50-5.40) Hemoglobin 12.5 g/dL (12.0-15.5) Hematocrit 39.1 % (36.0-47.0) Mean Corpuscular Volume 104 fL (79-100) Mean Corpuscular Hemoglobin 33 pg (25-35) Mean Corpuscular Hemoglobin Concent 32 g/dL (31-37) Red Cell Distribution Width 15.2 % (11.5-14.5) Platelet Count 150 x10^3/uL (140-400) Neutrophils (%) (Auto) 62 % (31-73) Lymphocytes (%) (Auto) 26 % (24-48) Monocytes (%) (Auto) 9 % (0-9) Eosinophils (%) (Auto) 2 % (0-3) Basophils (%) (Auto) 1 % (0-3) Neutrophils # (Auto) 2.8 x10^3/uL (1.8-7.7) Lymphocytes # (Auto) 1.2 x10^3/uL (1.0-4.8) Monocytes # (Auto) 0.4 x10^3/uL (0.0-1.1) Eosinophils # (Auto) 0.1 x10^3/uL (0.0-0.7) Basophils # (Auto) 0.0 x10^3/uL (0.0-0.2) Prothrombin Time 65.0 SEC (11.7-14.0) Prothromb Time International Ratio 7.6 (0.8-1.1) Activated Partial Thromboplast Time 69 SEC (24-38) Sodium Level 139 mmol/L (136-145) Potassium Level 4.2 mmol/L (3.5-5.1) Chloride Level 106 mmol/L (98-107) Carbon Dioxide Level 21 mmol/L (21-32) Anion Gap 12 (6-14) Blood Urea Nitrogen 19 mg/dL (7-20) Creatinine 4.3 mg/dL (0.6-1.0) Estimated GFR (Cockcroft-Gault) 12.1 BUN/Creatinine Ratio 4 (6-20) Glucose Level 98 mg/dL (70-99) Calcium Level 8.6 mg/dL (8.5-10.1) Total Bilirubin 0.7 mg/dL (0.2-1.0) Aspartate Amino Transf (AST/SGOT) 18 U/L (15-37) Alanine Aminotransferase (ALT/SGPT) 10 U/L (14-59) Alkaline Phosphatase 362 U/L (46-116) Total Protein 7.2 g/dL (6.4-8.2) Albumin 3.3 g/dL (3.4-5.0) Albumin/Globulin Ratio 0.8 (1.0-1.7) Lipase 51 U/L (73-393) Glucose (Fingerstick) 93 mg/dL (70-99) 98 mg/dL (70-99) Test 07/07/19 04:00 07/07/19 07:09 07/07/19 11:22 White Blood Count 3.2 x10^3/uL (4.0-11.0) Red Blood Count 3.37 x10^6/uL (3.50-5.40) Hemoglobin 11.1 g/dL (12.0-15.5) Hematocrit 35.3 % (36.0-47.0) Mean Corpuscular Volume 105 fL (79-100) Mean Corpuscular Hemoglobin 33 pg (25-35) Mean Corpuscular Hemoglobin Concent 32 g/dL (31-37) Red Cell Distribution Width 15.1 % (11.5-14.5) Platelet Count 140 x10^3/uL (140-400) Neutrophils (%) (Auto) 56 % (31-73) Lymphocytes (%) (Auto) 31 % (24-48) Monocytes (%) (Auto) 10 % (0-9) Eosinophils (%) (Auto) 3 % (0-3) Basophils (%) (Auto) 1 % (0-3) Neutrophils # (Auto) 1.8 x10^3/uL (1.8-7.7) Lymphocytes # (Auto) 1.0 x10^3/uL (1.0-4.8) Monocytes # (Auto) 0.3 x10^3/uL (0.0-1.1) Eosinophils # (Auto) 0.1 x10^3/uL (0.0-0.7) Basophils # (Auto) 0.0 x10^3/uL (0.0-0.2) Prothrombin Time 41.9 SEC (11.7-14.0) Prothromb Time International Ratio 4.4 (0.8-1.1) Sodium Level 141 mmol/L (136-145) Potassium Level 4.1 mmol/L (3.5-5.1) Chloride Level 107 mmol/L (98-107) Carbon Dioxide Level 23 mmol/L (21-32) Anion Gap 11 (6-14) Blood Urea Nitrogen 23 mg/dL (7-20) Creatinine 5.0 mg/dL (0.6-1.0) Estimated GFR (Cockcroft-Gault) 10.2 Glucose Level 81 mg/dL (70-99) Calcium Level 8.1 mg/dL (8.5-10.1) Phosphorus Level 3.2 mg/dL (2.6-4.7) Albumin 2.9 g/dL (3.4-5.0) Glucose (Fingerstick) 67 mg/dL (70-99) 124 mg/dL (70-99) Laboratory Tests Test 07/06/19 13:23 07/06/19 14:07 07/06/19 18:02 07/06/19 20:52 Stool Occult Blood Positive (NEG) White Blood Count 4.5 x10^3/uL (4.0-11.0) Red Blood Count 3.76 x10^6/uL (3.50-5.40) Hemoglobin 12.5 g/dL (12.0-15.5) Hematocrit 39.1 % (36.0-47.0) Mean Corpuscular Volume 104 fL (79-100) Mean Corpuscular Hemoglobin 33 pg (25-35) Mean Corpuscular Hemoglobin Concent 32 g/dL (31-37) Red Cell Distribution Width 15.2 % (11.5-14.5) Platelet Count 150 x10^3/uL (140-400) Neutrophils (%) (Auto) 62 % (31-73) Lymphocytes (%) (Auto) 26 % (24-48) Monocytes (%) (Auto) 9 % (0-9) Eosinophils (%) (Auto) 2 % (0-3) Basophils (%) (Auto) 1 % (0-3) Neutrophils # (Auto) 2.8 x10^3/uL (1.8-7.7) Lymphocytes # (Auto) 1.2 x10^3/uL (1.0-4.8) Monocytes # (Auto) 0.4 x10^3/uL (0.0-1.1) Eosinophils # (Auto) 0.1 x10^3/uL (0.0-0.7) Basophils # (Auto) 0.0 x10^3/uL (0.0-0.2) Prothrombin Time 65.0 SEC (11.7-14.0) Prothromb Time International Ratio 7.6 (0.8-1.1) Activated Partial Thromboplast Time 69 SEC (24-38) Sodium Level 139 mmol/L (136-145) Potassium Level 4.2 mmol/L (3.5-5.1) Chloride Level 106 mmol/L (98-107) Carbon Dioxide Level 21 mmol/L (21-32) Anion Gap 12 (6-14) Blood Urea Nitrogen 19 mg/dL (7-20) Creatinine 4.3 mg/dL (0.6-1.0) Estimated GFR (Cockcroft-Gault) 12.1 BUN/Creatinine Ratio 4 (6-20) Glucose Level 98 mg/dL (70-99) Calcium Level 8.6 mg/dL (8.5-10.1) Total Bilirubin 0.7 mg/dL (0.2-1.0) Aspartate Amino Transf (AST/SGOT) 18 U/L (15-37) Alanine Aminotransferase (ALT/SGPT) 10 U/L (14-59) Alkaline Phosphatase 362 U/L (46-116) Total Protein 7.2 g/dL (6.4-8.2) Albumin 3.3 g/dL (3.4-5.0) Albumin/Globulin Ratio 0.8 (1.0-1.7) Lipase 51 U/L (73-393) Glucose (Fingerstick) 93 mg/dL (70-99) 98 mg/dL (70-99) Test 07/07/19 04:00 07/07/19 07:09 07/07/19 11:22 White Blood Count 3.2 x10^3/uL (4.0-11.0) Red Blood Count 3.37 x10^6/uL (3.50-5.40) Hemoglobin 11.1 g/dL (12.0-15.5) Hematocrit 35.3 % (36.0-47.0) Mean Corpuscular Volume 105 fL (79-100) Mean Corpuscular Hemoglobin 33 pg (25-35) Mean Corpuscular Hemoglobin Concent 32 g/dL (31-37) Red Cell Distribution Width 15.1 % (11.5-14.5) Platelet Count 140 x10^3/uL (140-400) Neutrophils (%) (Auto) 56 % (31-73) Lymphocytes (%) (Auto) 31 % (24-48) Monocytes (%) (Auto) 10 % (0-9) Eosinophils (%) (Auto) 3 % (0-3) Basophils (%) (Auto) 1 % (0-3) Neutrophils # (Auto) 1.8 x10^3/uL (1.8-7.7) Lymphocytes # (Auto) 1.0 x10^3/uL (1.0-4.8) Monocytes # (Auto) 0.3 x10^3/uL (0.0-1.1) Eosinophils # (Auto) 0.1 x10^3/uL (0.0-0.7) Basophils # (Auto) 0.0 x10^3/uL (0.0-0.2) Prothrombin Time 41.9 SEC (11.7-14.0) Prothromb Time International Ratio 4.4 (0.8-1.1) Sodium Level 141 mmol/L (136-145) Potassium Level 4.1 mmol/L (3.5-5.1) Chloride Level 107 mmol/L (98-107) Carbon Dioxide Level 23 mmol/L (21-32) Anion Gap 11 (6-14) Blood Urea Nitrogen 23 mg/dL (7-20) Creatinine 5.0 mg/dL (0.6-1.0) Estimated GFR (Cockcroft-Gault) 10.2 Glucose Level 81 mg/dL (70-99) Calcium Level 8.1 mg/dL (8.5-10.1) Phosphorus Level 3.2 mg/dL (2.6-4.7) Albumin 2.9 g/dL (3.4-5.0) Glucose (Fingerstick) 67 mg/dL (70-99) 124 mg/dL (70-99) Review All relevant outside records, renal labs, imaging studies, telemetry/EKG's were reviewed. MARIO NOVOA MD Jul 07, 2019 12:56
[2019-07-07] MEDS: PANTOPRAZOLE 40 MG TABLET.DR. PO SCH (13:28)
[2019-07-07 14:11] VITALS: BP 105/55
--- NOTE | 2019-07-07 15:02 | RAD ---
Examination: CT abdomen pelvis without contrast HISTORY: History of abdominal pain COMPARISON: 03/08/2014 TECHNIQUE: Axial CT images of the abdomen pelvis were performed without contrast. Coronal and sagittal reformats performed Exposure: One or more of the following individualized dose reduction techniques were utilized for this examination: 1. Automated exposure control 2. Adjustment of the mA and/or kV according to patient size 3. Use of iterative reconstruction technique FINDINGS: Partially visualized moderate right lower lobe lung consolidation likely pneumonia or atelectasis. Moderate right pleural effusion is identified. Probable calcified granuloma identified in the right lower lobe of the lung. Trace left effusion identified. No evidence of free air identified in the abdomen. The evaluation of the solid organs is limited due to lack of IV contrast. The evaluation of bowel is limited due to lack of oral contrast. The visualized noncontrasted liver, spleen, adrenals grossly appears unremarkable. The gallbladder is mildly distended. Probable sludge identified within the gallbladder. The stomach is mildly distended. There is inflammatory fat stranding identified about the pancreas. The pancreas appears atrophic. Small bowel is nondilated. Feces and gas noted in the colon. Few sigmoid colon diverticulosis. Liquid stool identified in the colon. Urinary bladder is mildly distended. Diffuse sclerotic changes identified throughout the visualized skeleton. Atrophic appearing bilateral kidneys Moderate atherosclerotic calcification identified in the origin of the celiac artery. Moderate aortic atherosclerosis. Mild diffuse anasarca. IMPRESSION: 1. Inflammatory fat stranding identified about the pancreas. Correlate for pancreatitis. 2. Probable gallbladder sludge. 3. Moderate right lower lobe lung consolidation likely pneumonia with effusion. 4. Diffuse sclerotic appearance throughout the visualized skeleton could be due to renal disease or secondary hyperparathyroidism or metastasis. Electronically signed by: Vivek Denise MD (07/07/2019 2:59 PM) [facility]
[2019-07-07 16:00] LABS: INFLUENZA A PATIENT NEGATIVE (NEGATIVE); INFLUENZA B PATIENT NEGATIVE (NEGATIVE)
[2019-07-07] MEDS ORDERED: BENZOCAINE/MENTHOL LOZENGE. PO PRN (16:15)
[2019-07-07] MEDS ORDERED: PIP/TAZO PER PHARMACY MC PRN (17:30)
[2019-07-07] MEDS: PIPERACILLIN/TAZOBACTAM 2.25 GM in IV NORMAL SALINE 50ML 50 ML IV SCH ×2 (17:46→21:04)
[2019-07-07 19:00] VITALS: BP 108/49
[2019-07-07] MEDS: GABAPENTIN 300 MG CAPSULE. PO SCH (21:05)
[2019-07-07 23:00] VITALS: BP 98/47
[2019-07-08 03:48] VITALS: BP 97/48
[2019-07-08] MEDS: PIPERACILLIN/TAZOBACTAM 2.25 GM in IV NORMAL SALINE 50ML 50 ML IV SCH ×2 (05:59→14:04)
[2019-07-08 07:00] VITALS: BP 94/45
[2019-07-08] MEDS: SEVELAMER CARBONATE 800 MG TABLET. PO SCH ×3 (08:00→17:00)
[2019-07-08] MEDS: ALBUTEROL SULFATE 2.5 MG/3 ML NEBU. NEB SCH ×2 (08:00→19:14)
[2019-07-08] MEDS: MIDODRINE 5 MG TABLET PO SCH ×3 (08:33→18:00)
[2019-07-08] MEDS ORDERED: IV NORMAL SALINE 1000ML BAG 1,000 ML IV PRN ×2 (08:41)
[2019-07-08] MEDS ORDERED: ALBUMIN HUMAN 25% 200 ML IV PRN (08:45)
[2019-07-08] MEDS ORDERED: diphenhydrAMINE 50 MG/ML VIAL IV PRN ×2 (08:45)
[2019-07-08] MEDS ORDERED: DIALYSIS PATIENT. MC PRN ×2 (08:45)
[2019-07-08] MEDS ORDERED: LIDOCAINE 1% PF 30 ML VIAL. INJ ONE (09:00)
[2019-07-08] MEDS: FAMOTIDINE 20 MG TABLET. PO SCH (09:00)
--- NOTE | 2019-07-08 09:00 | NUR ---
Nursing: Patient off of unit for dialysis. Morning medications held until patient returns.
--- NOTE | 2019-07-08 10:59 | PDOC ---
SUBJECTIVE ROS Seen on HD, tolerating well OBJECTIVE Vital Signs Vital Signs Date Time Temp Pulse Resp B/P (MAP) Pulse Ox O2 Delivery O2 Flow Rate FiO2 07/08/19 08:33 65 07/08/19 07:00 98.2 18 94/45 (61) 94 Room Air 98.2 I & 0 Intake and Output 07/08/19 07:00 Intake Total 1400 ml Output Total 0 ml Balance 1400 ml Intake Oral 1200 ml Other 200 ml Output Urine Total 0 ml PHYSICAL EXAM Physical Exam GENERAL: NAD HEENT:Oropharynx pink and moist. NECK: Supple. LUNGS: Clear to auscultation. HEART: S1, S2. ABDOMEN: Obese, soft, a EXTREMITIES: No gross edema . LUE-AVF SKIN: No rash. NEUROLOGIC: Awake and answering questions appropriately. No Vamshi DIAGNOSIS/ASSESSMENT Assessment & Plan ESRD - On HD TTS Seen on HD , toleraing well, continue as ordered, Truman Bess Access- Hx of thrombosed left upper extremity HERO Left upper extremity fistulogram, [employer] mechanical thrombolysis thrombosed Hero graft.,Angioplasty of outflow vein stenosis on 04/01 DM- per primary Rectal bleed- GI consulted Anemia - FRED per protocol to keep Hgb 10-11 Hypotension - On Midodrine Morbid Obesity Bone /Mineral-On Binders and Cinacalcet COMMENT/RELEVANT DATA Meds Current Medications Medications (Trade) Dose Ordered Sig/Kenney Start Time Stop Time Status Last Admin Dose Admin Acetaminophen (Tylenol) 650 mg PRN Q4HRS PRN 07/06/19 16:00 Acetaminophen/ Hydrocodone Bitart (Lortab 7.5/325) 1 tab PRN BID PRN 07/06/19 16:15 Albumin Human 200 ml @ 200 mls/hr 1X PRN PRN 07/08/19 08:45 07/08/19 14:44 Albuterol Sulfate (Ventolin Neb Soln) 2.5 mg RTBID 07/06/19 20:00 07/07/19 21:40 2.5 MG Amlodipine Besylate (Norvasc) 5 mg DAILY 07/07/19 09:00 07/07/19 10:08 5 MG Cinacalcet (Sensipar) 30 mg DAILY 07/07/19 09:00 07/07/19 10:08 30 MG Clonidine HCl (Catapres) 0.1 mg PRN Q6HRS PRN 07/06/19 16:15 Diphenhydramine HCl (Benadryl) 25 mg 1X PRN PRN 07/08/19 08:45 07/09/19 08:44 Docusate Sodium (Colace) 100 mg PRN BID PRN 07/06/19 16:00 Famotidine (Pepcid Vial) 20 mg 1X ONCE 07/06/19 11:45 07/06/19 11:46 DC 07/06/19 14:29 20 MG Famotidine (Pepcid) 20 mg DAILY 07/07/19 09:00 07/07/19 10:08 20 MG Fluticasone Propionate (Flonase) 2 spray DAILY 07/07/19 09:00 07/07/19 10:09 2 SPRAY Gabapentin (Neurontin) 300 mg QHS 07/06/19 21:00 07/07/19 21:05 300 MG Guaifenesin (Robitussin) 200 mg PRN Q4HRS PRN 07/06/19 16:00 07/07/19 21:05 200 MG Info (PHARMACY MONITORING -- do not chart) 1 each PRN DAILY PRN 07/08/19 08:45 Levothyroxine Sodium (Synthroid) 50 mcg DAILY 07/07/19 09:00 07/07/19 10:11 50 MCG Lidocaine HCl (Xylocaine 1% Pf 30ml Vial) 30 ml 1X ONCE 07/08/19 09:00 07/08/19 09:01 DC Lorazepam (Ativan) 0.5 mg PRN Q4HRS PRN 07/06/19 16:00 Midodrine (Proamatine) 5 mg [id number] 07/07/19 07:00 07/08/19 08:33 5 MG Morphine Sulfate (Morphine Sulfate) 4 mg PRN Q2HR PRN 07/06/19 16:15 07/07/19 16:14 DC Ondansetron HCl (Zofran) 4 mg PRN Q8HRS PRN 07/06/19 16:15 07/07/19 16:14 DC Pantoprazole Sodium (Protonix) 40 mg DAILYAC 07/07/19 12:00 07/07/19 13:28 40 MG Piperacillin Sod/ Tazobactam Sod (Zosyn Per Pharmacy) 1 each PRN DAILY PRN 07/07/19 17:30 Piperacillin Sod/ Tazobactam Sod 2.25 gm/Sodium Chloride 50 ml @ 100 mls/hr Q8HRS 07/07/19 16:00 07/08/19 05:59 100 MLS/HR Polyethylene Glycol (miraLAX PACKET) 17 gm PRN DAILY PRN 07/06/19 16:15 Sevelamer Carbonate (Renvela) 800 mg TIDWMEALS 07/07/19 08:00 07/07/19 17:46 800 MG Sodium Chloride 1,000 ml @ 400 mls/hr Q2H30M PRN 07/08/19 08:41 07/08/19 20:40 Sodium Chloride (Normal Saline Flush) 3 ml QSHIFT PRN 07/06/19 16:00 Throat Lozenges (Cepacol Sore Throat Lozenge) 1 ericka PRN Q2HRS PRN 07/07/19 16:15 07/07/19 21:06 1 ERICKA Topiramate (Topamax) 25 mg DAILY 07/07/19 09:00 07/07/19 10:07 25 MG Vitamin B Complex/ Vitamin C (Sandra-Donovan) 1 tab DAILY 07/07/19 09:00 07/07/19 10:07 1 TAB Lab Laboratory Tests Test 07/07/19 11:22 07/07/19 15:30 07/07/19 16:23 07/07/19 21:35 Glucose (Fingerstick) 124 mg/dL (70-99) 134 mg/dL (70-99) 125 mg/dL (70-99) Influenza Type A Antigen Negative (NEGATIVE) Influenza Type B Antigen Negative (NEGATIVE) Test 07/08/19 07:51 Glucose (Fingerstick) 75 mg/dL (70-99) Results All relevant outside records, renal labs, imaging studies, telemetry/EKG's were reviewed. MARIO NOVOA MD Jul 08, 2019 10:59
--- NOTE | 2019-07-08 12:19 | PDOC ---
[facility] PROGRESS NOTE Chief Complaint Chief Complaint Rectal bleeding Coumadin toxicity ESRD on dialysis Obesity Multiple comorbidities Past Medical History: Anemia, CAD, Cancer, Diabetes-Type II, High Cholesterol, Heart Disease, Hypertension, Renal Failure, Other Additional Past Medical Histor: uterine cancer Past Surgical History: Hysterectomy, Other Additional Past Surgical Histo: FISTULA- L upper arm History of Present Illness History of Present Illness 07/07/19 Patient seen and examined Discussed with RN Reviewed GIs note 07/08/19 Pt not in room Vitals/I&O Vitals/I&O: Vital Signs Date Time Temp Pulse Resp B/P (MAP) Pulse Ox O2 Delivery O2 Flow Rate FiO2 07/08/19 08:33 65 07/08/19 07:00 98.2 18 94/45 (61) 94 Room Air 98.2 I & O 07/07/19 07/07/19 07/08/19 15:00 23:00 07:00 Intake Total 500 ml 700 ml 200 ml Output Total 0 ml 0 ml Balance 500 ml 700 ml 200 ml Physical Exam Physical Exam: NA Labs Labs: Laboratory Tests Test 07/07/19 15:30 07/07/19 16:23 07/07/19 21:35 07/08/19 07:51 Influenza Type A Antigen Negative (NEGATIVE) Influenza Type B Antigen Negative (NEGATIVE) Glucose (Fingerstick) 134 mg/dL (70-99) 125 mg/dL (70-99) 75 mg/dL (70-99) Assessment and Plan Assessmemt and Plan Problems Medical Problems: (1) Elevated INR Status: Acute (2) ESRD (end stage renal disease) on dialysis Status: Acute (3) Rectal bleeding Status: Acute Rectal bleeding Coumadin toxicity ESRD on dialysis Obesity Multiple comorbidities Past Medical History: Anemia, CAD, Cancer, Diabetes-Type II, High Cholesterol, Heart Disease, Hypertension, Renal Failure, Other Additional Past Medical Histor: uterine cancer Past Surgical History: Hysterectomy, Other Additional Past Surgical Histo: FISTULA- L upper arm Comment Review of Relevant I have reviewed the following items gloria (where applicable) has been applied. Medications: Current Medications Medications (Trade) Dose Ordered Sig/Kenney Route PRN Reason Start Time Stop Time Status Last Admin Dose Admin Throat Lozenges (Cepacol Sore Throat Lozenge) 1 leandra PRN Q2HRS PRN PO SORE THROAT 07/07/19 16:15 07/07/19 21:06 Piperacillin Sod/ Tazobactam Sod 2.25 gm/Sodium Chloride 50 ml @ 100 mls/hr Q8HRS IV 07/07/19 16:00 07/08/19 05:59 MARTHA MARRUFO III DO Jul 08, 2019 12:19
--- NOTE | 2019-07-08 13:09 | NUR ---
WILMER consulted for AD. Chart reviewed and discussed with RN. Pt lives at home and has dialysis at [facility], phone: [phone], fax: [phone]. WILMER attempted to meet with pt to assist with AD but pt was out of room. WILMER will attempt to meet with pt again in the next 24hrs. Addendum: 07/08/19 at 1311 by MADHU GUILLEN Pt has been to [facility] in April 2019.
--- NOTE | 2019-07-08 13:43 | PDOC ---
GI PROGRESS NOTES Date Date/Time DATE: 07/08/19 TIME: 13:41 Subjective Subjective Seen in dialysis- bleeding appears to have stopped as INR has normalized- no prior colonoscopy- she would like us to proceed Objective Vitals Vital Signs Date Time Temp Pulse Resp B/P (MAP) Pulse Ox O2 Delivery O2 Flow Rate FiO2 07/08/19 08:33 65 07/08/19 08:05 Room Air 07/08/19 07:00 98.2 60 18 94/45 (61) 94 Room Air 98.2 07/08/19 03:48 98.5 62 18 97/48 (64) 100 Room Air 98.5 07/07/19 23:00 99.1 68 20 98/47 (64) 100 Room Air 99.1 07/07/19 21:40 94 Room Air 07/07/19 20:00 Room Air 07/07/19 19:00 99.4 67 20 108/49 (68) 99 Room Air 99.4 07/07/19 17:46 74 105/55 07/07/19 14:11 98.3 74 20 105/55 (72) 100 Room Air 98.3 Labs Labs Laboratory Tests Test 07/07/19 15:30 07/07/19 16:23 07/07/19 21:35 07/08/19 07:51 Influenza Type A Antigen Negative (NEGATIVE) Influenza Type B Antigen Negative (NEGATIVE) Glucose (Fingerstick) 134 mg/dL (70-99) 125 mg/dL (70-99) 75 mg/dL (70-99) Physical Exam Physical Exam chest- clear\ abd- soft non tender Assessment Assessment rectal bleeding- red blood suggesting colon origin- likely enhanced by high INR- now resolving and Hgb stable- discussed EGD and colonoscopy- she is agreeable Plan Plan CLD bowel prep today and EGD and colonoscopy tomorrow MARY RUBIN MD Jul 08, 2019 13:43
[2019-07-08] MEDS: CINACALCET HCL 30 MG TABLET PO SCH (13:57)
[2019-07-08] MEDS: PANTOPRAZOLE 40 MG TABLET.DR. PO SCH (13:58)
[2019-07-08] MEDS: TOPIRAMATE 25 MG TABLET. PO SCH (13:58)
[2019-07-08] MEDS: FOLIC/VIT B COMP W-C (RENAL) TABLET. PO SCH (13:58)
[2019-07-08] MEDS: LEVOTHYROXINE 50 MCG TABLET PO SCH (13:58)
[2019-07-08] MEDS: FLUTICASONE 50MCG/NASAL SPRAY 16GM BOTTLE. NS SCH (13:59)
[2019-07-08] MEDS: amLODIPine BESYLATE 5 MG TABLET PO SCH (14:00)
[2019-07-08 15:00] VITALS: BP 149/75
[2019-07-08] MEDS ORDERED: PEG 3350/NA SULF,BICARB,CL/KCL 4,000 ML SOLUTION. PO ONE (18:00)
[2019-07-08 19:00] VITALS: BP 145/65
[2019-07-08] MEDS: GABAPENTIN 300 MG CAPSULE. PO SCH (20:38)
[2019-07-08 23:00] VITALS: BP 137/63
[2019-07-09] MEDS: HYDROcodone/APAP 7.5/325MG 1 TAB TABLET PO PRN ×2 (00:31→08:47)
[2019-07-09] MEDS: PIPERACILLIN/TAZOBACTAM 2.25 GM in IV NORMAL SALINE 50ML 50 ML IV SCH ×3 (00:40→17:01)
[2019-07-09 03:00] VITALS: BP 116/58
[2019-07-09] MEDS: MIDODRINE 5 MG TABLET PO SCH ×3 (07:00→18:00)
[2019-07-09 07:10] VITALS: BP 121/56
[2019-07-09] MEDS: SEVELAMER CARBONATE 800 MG TABLET. PO SCH ×3 (08:00→17:01)
[2019-07-09] MEDS: ALBUTEROL SULFATE 2.5 MG/3 ML NEBU. NEB SCH (08:02)
[2019-07-09] MEDS: PANTOPRAZOLE 40 MG TABLET.DR. PO SCH (08:38)
[2019-07-09] MEDS: CINACALCET HCL 30 MG TABLET PO SCH (08:38)
[2019-07-09] MEDS: LEVOTHYROXINE 50 MCG TABLET PO SCH (08:38)
[2019-07-09] MEDS: TOPIRAMATE 25 MG TABLET. PO SCH (08:38)
[2019-07-09] MEDS: FOLIC/VIT B COMP W-C (RENAL) TABLET. PO SCH (08:38)
[2019-07-09] MEDS: FAMOTIDINE 20 MG TABLET. PO SCH (09:00)
[2019-07-09] MEDS: amLODIPine BESYLATE 5 MG TABLET PO SCH (09:00)
[2019-07-09] MEDS: FLUTICASONE 50MCG/NASAL SPRAY 16GM BOTTLE. NS SCH (09:00)
[2019-07-09 10:19] VITALS: BP_SYST 103; BP_SYST 182; BP_DIAS 49; BP_DIAS 73
[2019-07-09 11:13] LABS: PROTHROMBIN TIME PATIENT 24.8 SEC (11.7-14.0)
--- NOTE | 2019-07-09 11:36 | PDOC ---
[facility] [facility] PROGRESS NOTE Chief Complaint Chief Complaint Rectal bleeding Coumadin toxicity ESRD on dialysis Obesity Multiple comorbidities Past Medical History: Anemia, CAD, Cancer, Diabetes-Type II, High Cholesterol, Heart Disease, Hypertension, Renal Failure, Other Additional Past Medical Histor: uterine cancer Past Surgical History: Hysterectomy, Other Additional Past Surgical Histo: FISTULA- L upper arm History of Present Illness History of Present Illness 07/07/19 Patient seen and examined Discussed with RN Reviewed GIs note 07/08/19 Pt not in room 07/09/19 patient seen and examined Discussed with RN Chart reviewed Basically the patient seems to be at her baseline clinically She is scheduled for an EGD and colonoscopy today If those are within normal limits we'll go ahead and discharge after the above endoscopies Vitals/I&O Vitals/I&O: Vital Signs Date Time Temp Pulse Resp B/P (MAP) Pulse Ox O2 Delivery O2 Flow Rate FiO2 07/09/19 10: 98.8 59 24 103/49 (67) 96 Room Air 98.8 I & O 07/08/19 07/08/19 07/09/19 15:00 23:00 07:00 Intake Total 100 ml 900 ml 3000 ml Output Total 0 ml 801 ml Balance 100 ml 900 ml 2199 ml Physical Exam Physical Exam: NA General: Alert, Oriented X3, Cooperative Heart: Regular rate, Normal S1, Normal S2 Lungs: Clear Abdomen: Normal bowel sounds, Soft Extremities: No clubbing, No cyanosis Skin: No rashes, No breakdown Labs Labs: Laboratory Tests Test 07/08/19 13:59 07/08/19 16:56 07/08/19 19:43 07/09/19 07:14 Glucose (Fingerstick) 70 mg/dL (70-99) 128 mg/dL (70-99) 96 mg/dL (70-99) 83 mg/dL (70-99) Test 07/09/19 10:50 Prothrombin Time 24.8 SEC (11.7-14.0) Prothromb Time International Ratio 2.3 (0.8-1.1) Assessment and Plan Assessmemt and Plan Problems Medical Problems: (1) Elevated INR Status: Acute (2) ESRD (end stage renal disease) on dialysis Status: Acute (3) Rectal bleeding Status: Acute Rectal bleeding Coumadin toxicity ESRD on dialysis Obesity Multiple comorbidities Past Medical History: Anemia, CAD, Cancer, Diabetes-Type II, High Cholesterol, Heart Disease, Hypertension, Renal Failure, Other Additional Past Medical Histor: uterine cancer Past Surgical History: Hysterectomy, Other Additional Past Surgical Histo: FISTULA- L upper arm Plan After her EGD and colonoscopy if she is stable we'll discharge Follow-up PCP when necessary Follow up for dialysis as scheduled Appreciate subspecialist input Comment Review of Relevant I have reviewed the following items gloria (where applicable) has been applied. Medications: Current Medications Medications (Trade) Dose Ordered Sig/Kenney Route PRN Reason Start Time Stop Time Status Last Admin Dose Admin Sodium Cl/Sod Bicarb/Potass Cl/ PEG (Golytely) 4,000 ml 1X ONCE PO 07/08/19 18:00 07/08/19 18:01 DC 07/08/19 17:59 MARTHA MARRUFO III DO Jul 09, 2019 11:36
[2019-07-09] MEDS ORDERED: IV NORMAL SALINE 1000ML BAG 1,000 ML IV ONE (14:00)
[2019-07-09] MEDS ORDERED: LIDOCAINE 2% PF 5 ML VIAL. ONE (14:45)
[2019-07-09] MEDS ORDERED: PROPOFOL 20 ML IV ONE ×2 (14:45)
[2019-07-09] MEDS ORDERED: ePHEDrine PF IN SALINE 50 MG/10 ML SYRINGE. IV ONE (14:45)
--- NOTE | 2019-07-09 15:09 | PDOC4 ---
PROCEDURE Procedure EGD GI bleed Anesthesia with propofol Findings E- normal G- gastritis in antrum with a few erosions, no ulcers no bleeding (bx) D- duodenitis without ulceration or bleeding Plan- PPI check bx results proceed with colonoscopy MARY RUBIN MD Jul 09, 2019 15:09
--- NOTE | 2019-07-09 15:35 | PDOC4 ---
PROCEDURE Procedure Colonoscopy bleeding Anesthesia with propofol Findings a few diverticulae, NO bleeding, no polyps or ulcers - no source for bleeding seen Avoid excessive anti-coagulation Resume diet MARY RUBIN MD Jul 09, 2019 15:35
--- NOTE | 2019-07-09 15:57 | NUR ---
Nursing: Zosyn given late. Patient was off of unit for EGD and colonoscopy when antibiotic was due.
[2019-07-09 17:30] VITALS: BP 119/55
--- NOTE | 2019-07-09 18:05 | NUR ---
Frequent vial signs stable. See paper chart
--- NOTE | 2019-07-09 18:08 | NUR ---
Discharge teaching verbal and written. Reviewed orders, medication, follow-up, INR, nausea, EGD, colonoscopy, ect. IV removed without complications, dressing applied. All belongings with patient. Waiting on [facility] transport. Patient notified gamily of discharge.
--- NOTE | 2019-07-13 09:22 | DS ---
DATE OF DISCHARGE: 07/09/2019 ADMISSION DIAGNOSIS: Gastrointestinal bleed. DISCHARGE DIAGNOSES: Resolving gastrointestinal bleed and resolving elevated INR. HOSPITAL COURSE: The patient is a pleasant 73-year-old female, who came in with rectal bleeding. She had an elevated INR. She was admitted, we transfused and we consulted GI. She went for an EGD and colonoscopy. On 07/09/2019, she was at her baseline, we discharged her home. DISPOSITION: Home. ACTIVITY: As tolerated. DIET: Low sodium. MEDICATIONS: Please see MRAD. TOTAL TIME: 34 minutes. MARTHA MARRUFO DO DR: BENNIE/jen JOB#: [id number] / [id number]
--- NOTE | 2019-07-13 18:06 | PATHOLOGY ---
[facility] Accession Number: [id number] . 01 Material submitted: . stomach - GASTRIC ANTRUM BIOPSY . 01 Clinical history: . Rectal bleed Rule out gastritis, H. pylori . 02 Diagnosis: Gastric biopsies, antrum: - Chronic gastritis, moderate, with rare Helicobacter organism identified. LBQ 07/13/2019 1711 Local . 02 Comment: Sections of the gastric biopsy reveal segments of gastric antral and gastric body mucosa showing congestion and focally active, moderate chronic inflammation. A properly controlled immunoperoxidase stain for Helicobacter reveals a rare Helicobacter organism. There is no evidence of malignancy. (JPM/db; 07/13/2019) . Special stain performed: Immunoperoxidase stain for Helicobacter . 02 Electronically signed: . Beny Nelson MD, Pathologist NPI- [id number] . 01 Gross description: . The specimen is received in formalin, labeled "Wilkerson, Roxanne, gastric antrum BX" and consists of 3 fragments of pink-castro tissue measuring between 0.3 x 0.1 cm and 0.5 x 0.1 cm which are entirely submitted in A1. (SDY; 07/12/2019) SYU/SYU 07/12/2019 1621 Local . 02 Pathologist provided ICD-10: K29.50, B96.81 . 02 CPT . 485483, [id number] Specimen Comment: A courtesy copy of this report has been sent to [phone], [phone] Specimen Comment: [id number], Specimen Comment: Report sent to ,DR SOLARES / DR HUFF Performed at: 01 [facility] [address], [place], [place] [id number] MD Jose Alberto Burnham MD Phone: [phone] Performed at: 02 [facility] [address], [place] [id number] MD Beny Nelson MD Phone: [phone]
== END 2019-07-09 18:30 | disposition home or self-care (01) | DRG 377 ==
LOC: ER 11:24 → ED HOLD 13:15 → 2 NORTH 17:35
PROVIDERS: ADMIT Family Medicine; ATTEND Family Medicine
PROC: 30233K1 Transfusion of Nonautologous Frozen Plasma into Peripheral Vein, Percutaneous Approach (ICD-10-PCS; principal; 2019-07-06)
PROC: 0DJD8ZZ Inspection of Lower Intestinal Tract, Via Natural or Artificial Opening Endoscopic (ICD-10-PCS; 2019-07-09)
PROC: 0DB68ZX Excision of Stomach, Via Natural or Artificial Opening Endoscopic, Diagnostic (ICD-10-PCS; 2019-07-09 15:00)
DX: K62.5 Hemorrhage of anus and rectum (principal); N18.6 End stage renal disease; I12.0 Hypertensive chronic kidney disease with stage 5 chronic kidney disease or end stage renal disease; Z68.41 Body mass index [BMI] 40.0-44.9, adult; E66.01 Morbid (severe) obesity due to excess calories; E03.9 Hypothyroidism, unspecified; E11.22 Type 2 diabetes mellitus with diabetic chronic kidney disease; E78.00 Pure hypercholesterolemia, unspecified; I25.10 Atherosclerotic heart disease of native coronary artery without angina pectoris; I70.0 Atherosclerosis of aorta; J45.909 Unspecified asthma, uncomplicated; J84.10 Pulmonary fibrosis, unspecified; K29.70 Gastritis, unspecified, without bleeding; K57.30 Diverticulosis of large intestine without perforation or abscess without bleeding; K59.00 Constipation, unspecified; T45.515A Adverse effect of anticoagulants, initial encounter; Z79.01 Long term (current) use of anticoagulants; Z82.49 Family history of ischemic heart disease and other diseases of the circulatory system; Z83.3 Family history of diabetes mellitus; Z85.42 Personal history of malignant neoplasm of other parts of uterus; Z90.710 Acquired absence of both cervix and uterus; Z99.2 Dependence on renal dialysis; D64.9 Anemia, unspecified; F41.9 Anxiety disorder, unspecified; K21.9 Gastro-esophageal reflux disease without esophagitis; M19.90 Unspecified osteoarthritis, unspecified site
CPT/HCPCS: 36415; 36430; 43239; 45378; 74176; 80053; 80069; 82274; 82607; 82962; 83690; 85025; 85610; 85730; 86850; 86900; 86901; 86927; 87804; 94640; 96374; J0171; J2001; J2405; J2543; J2704; J3490; J7030; J7613; P9017; 99285-25; G0378

== ENCOUNTER → 2019-12-29 | Outpatient (CLI) | payer MEDICARE, OTHER ==
[~2019-12-29] MED LIST changes: +LEVO75TA5 PO; +MIDO2.5T PO
[2019-12-29 13:06] LABS: BASO % 1 % (0-3); EOS # 0.1 x10^3/uL (0.0-0.7); EOS % 3 % (0-3); HEMATOCRIT 32.4 % (36.0-47.0); HEMOGLOBIN 10.4 g/dL (12.0-15.5); LYMPH # 0.8 x10^3/uL (1.0-4.8); LYMPH % 24 % (24-48); MEAN CORPUSCULAR HEMOGLOBIN 36 pg (25-35); MEAN CORPUSCULAR HGB CONC 32 g/dL (31-37); MEAN CORPUSCULAR VOLUME 113 fL (79-100); MONO # 0.4 x10^3/uL (0.0-1.1); MONO % 12 % (0-9); NEUT # 2.1 x10^3/uL (1.8-7.7); NEUT % 61 % (31-73); PLATELET COUNT 188 x10^3/uL (140-400); RED BLOOD COUNT 2.88 x10^6/uL (3.50-5.40); RED CELL DISTRIBUTION WIDTH 16.6 % (11.5-14.5); WHITE BLOOD COUNT 3.4 x10^3/uL (4.0-11.0)
[2019-12-29 13:14] LABS: PROTHROMBIN TIME PATIENT 16.6 SEC (11.7-14.0)
[2019-12-29 13:20] LABS: ALBUMIN/GLOBULIN RATIO 1.1 (1.0-1.7); CALCIUM 7.2 mg/dL (8.5-10.1); CREATININE 5.2 mg/dL (0.6-1.0); GFR 9.7; POTASSIUM 5.2 mmol/L (3.5-5.1); TOTAL BILIRUBIN 0.5 mg/dL (0.2-1.0); TOTAL PROTEIN 7.7 g/dL (6.4-8.2)
[2019-12-29 14:51] LABS: OVALOCYTES FEW; PLT ESTIMATE ADEQUATE (ADEQUATE); POLYCHROMASIA SLIGHT
[2019-12-30 01:08] LABS: HEMOGLOBIN A1C 4.7 % (4.8-5.6)
== END ==
LOC: LAB 12:20
PROVIDERS: ATTEND Family Medicine
DX: E11.22 Type 2 diabetes mellitus with diabetic chronic kidney disease (principal); N18.6 End stage renal disease; E11.59 Type 2 diabetes mellitus with other circulatory complications; D64.9 Anemia, unspecified; E03.9 Hypothyroidism, unspecified; Z99.2 Dependence on renal dialysis
CPT/HCPCS: 36415; 80053; 83036; 84443; 85025; 85610

== ENCOUNTER 2020-03-13 16:20 | Emergency (ER) | payer MEDICARE, OTHER ==
[~2020-03-13] VITALS: Ht 167.6 cm; Wt 112.7 kg
[~2020-03-13 16:20] MED LIST changes: -LEVO75TA5 PO; -MIDO2.5T PO
--- NOTE | 2020-03-13 16:25 | PHYS DOC ---
Past Medical History Past Medical History: Anemia, CAD, Cancer, Diabetes-Type II, High Cholesterol, Heart Disease, Hypertension, Renal Failure, Other Additional Past Medical Histor: uterine cancer Past Surgical History: Hysterectomy, Other Additional Past Surgical Histo: FISTULA- L upper arm Smoking Status: Never Smoker Alcohol Use: None Drug Use: None General Adult HPI: HPI: Patient is a 74 year old [f__sex] who presents with [] Review of Systems: Review of Systems: Constitutional: Denies fever or chills. [] Eyes: Denies change in visual acuity. [] HENT: Denies nasal congestion or sore throat. [] Respiratory: Denies cough or shortness of breath. [] Cardiovascular: Denies chest pain or edema. [] GI: Denies abdominal pain, nausea, vomiting, bloody stools or diarrhea. [] : Denies dysuria. [] Musculoskeletal: Denies back pain or joint pain. [] Integument: Denies rash. [] Neurologic: Denies headache, focal weakness or sensory changes. [] Endocrine: Denies polyuria or polydipsia. [] Lymphatic: Denies swollen glands. [] Psychiatric: Denies depression or anxiety. [] Heart Score: Risk Factors: Risk Factors: DM, Current or recent (<one month) smoker, HTN, HLP, family history of CAD, obesity. Risk Scores: Score 0 - 3: 2.5% MACE over next 6 weeks - Discharge Home Score 4 - 6: 20.3% MACE over next 6 weeks - Admit for Clinical Observation Score 7 - 10: 72.7% MACE over next 6 weeks - Early Invasive Strategies Allergies: Allergies: Allergies Coded Allergies Type Severity Reaction Last Updated Verified No Known Medication Allergies Allergy Unknown 07/09/19 Yes Physical Exam: PE: Constitutional: Well developed, well nourished, no acute distress, non-toxic appearance. [] HENT: Normocephalic, atraumatic, bilateral external ears normal, oropharynx moist, no oral exudates, nose normal. [] Eyes: PERRLA, EOMI, conjunctiva normal, no discharge. [] Neck: Normal range of motion, no tenderness, supple, no stridor. [] Cardiovascular:Heart rate regular rhythm, no murmur [] Lungs & Thorax: Bilateral breath sounds clear to auscultation [] Abdomen: Bowel sounds normal, soft, no tenderness, no masses, no pulsatile masses. [] Skin: Warm, dry, no erythema, no rash. [] Back: No tenderness, no CVA tenderness. [] Extremities: No tenderness, no cyanosis, no clubbing, ROM intact, no edema. [] Neurologic: Alert and oriented X 3, normal motor function, normal sensory function, no focal deficits noted. [] Psychologic: Affect normal, judgement normal, mood normal. [] EKG: EKG: [] Radiology/Procedures: Radiology/Procedures: [] Course & Med Decision Making: Course & Med Decision Making Pertinent Labs and Imaging studies reviewed. (See chart for details) [] Dragon Disclaimer: Dragon Disclaimer: This electronic medical record was generated, in whole or in part, using a voice recognition dictation system. Departure Departure Referrals: Joanne HUFF MD (PCP) IVORY TONY DO Mar 13, 2020 16:25
--- NOTE | 2020-03-13 16:51 | PHYS DOC ---
Past Medical History Past Medical History: Anemia, CAD, Cancer, Diabetes-Type II, High Cholesterol, Heart Disease, Hypertension, Renal Failure (on / HD), Other Additional Past Medical Histor: uterine cancer (IVORY TONY DO) Past Surgical History: Hysterectomy, Other Additional Past Surgical Histo: FISTULA- L upper arm, dialysis catheter to right groin (IVORY TONY DO) Smoking Status: Never Smoker Alcohol Use: None Drug Use: None (IVORY TONY DO) General Adult EDM: Chief Complaint: Edema HPI: HPI: Patient is a 74-year-old female presenting to the ED with worsening edema due to her end-stage renal disease. Patient states she is noticed increased swelling in her right breast right flank and lower extremities. Patient states she is having some shortness of breath and is "feeling heavy". Patient receives dialysis Tuesdays, , Saturdays and states she thinks she needs more dialysis. Patient denies any COVID contacts and subjective fever. Denies trauma. Reports she is currently on coumadin. Reports some right lower extremity pain and swelling. Reports history of HD catheter to right groin. (IVORY TONY DO) Review of Systems: Review of Systems: Constitutional: Denies fever or chills Eyes: Denies redness or eye pain HENT: Denies nasal congestion or sore throat Respiratory: Denies cough; endorses shortness of breath Cardiovascular: Denies chest pain; reports right breast swelling GI: Reports right lower quadrant abdominal pain; denies nausea or vomiting Musculoskeletal: Denies back pain; reports RLE pain and edema Integument: Denies rash or laceration Neurologic: Denies headache, focal weakness or sensory changes Complete systems were reviewed and found to be within normal limits, except as documented in this note. (IVORY TONY DO) Allergies: Allergies: Allergies Coded Allergies Type Severity Reaction Last Updated Verified No Known Medication Allergies Allergy Unknown 07/09/19 Yes (IVORY TONY DO) Physical Exam: PE: Constitutional: Well developed, well nourished, no acute distress, non-toxic appearance HENT: Normocephalic, atraumatic Eyes: Conjunctiva normal, no discharge Neck: Normal range of motion, no tenderness, supple Lungs & Thorax: Soft bilateral crackles to auscultation, no wheezing, right breast is markedly swollen compared to right she states is edema Abdomen: Soft, right upper and lower quadrant tender to palpation and right lower panniculus with increased edema in comparison to left side Skin: Warm, dry, no erythema, no rash Extremities: Tenderness to palpation of calves bilaterally, ROM intact, 1+ edema to RLE and trace edema to LLE, right femoral dialysis catheter noted, left calf circumference 15-1/8 inches, right calf circumference 17-1/4 inches Neurologic: Alert to history taking, normal motor function, normal sensory function, no focal deficits noted Psychologic: Affect normal, judgment normal (IVORY TONY DO) EKG: EK03/13/2020 @ 16:41:22 heart rate 61 bpm, normal sinus rhythm, QRS 114 ms, QT/QTc 474/479 ms, low voltage ECG (IVORY TONY DO) Radiology/Procedures: Radiology/Procedures: PROCEDURE: PORTABLE CHEST 1V EXAM: PORTABLE CHEST 1V INDICATION: Reason: edema / Spl. Instructions: / History: . TECHNIQUE: Single view COMPARISON: Abdomen pelvis CT without IV contrast 04/16/2019, chest x-ray 04/19/2019. FINDINGS: Similar appearance to the left jugular approach large bore central venous catheter, terminating near the cavoatrial junction. Heart is moderately enlarged, similar to prior. Great vessels again show aortic calcification and a stent in a left-sided mediastinal vessel, possibly representing a persistent left SVC. There is no hilar or mediastinal mass. Lungs show mild atelectatic changes in the right lower lobe, similar to prior. No pneumothorax. Persistent or recurrent small right pleural effusion. There are no significant osseous abnormalities. IMPRESSION: Similar right basilar atelectasis or consolidation with a small right pleural effusion. No new superimposed acute cardiopulmonary process otherwise noted. (IVORY TONY DO) Radiology/Procedures: IMAGING REPORT Signed PATIENT: ROSE CAMPOS GACCOUNT: [id number] : 1945 LOCATION: ER AGE: 74 SEX: F EXAM STATUS: REG ER ORD. PHYSICIAN: IVORY TONY DO REASON: RLE pain and swelling, eval for DVT PROCEDURE: VENOUS LOWER EXTREMITY RIGHT Exam: Right lower extremity venous duplex study INDICATION: Leg swelling TECHNIQUE: Using a combination of real-time ultrasound imaging and color-flow and pulse Doppler imaging techniques along with graded compression and augmentation, duplex evaluation of the deep venous systems of rightlower extremity was performed. Multiple images were obtained. Findings: There is no sonographic evidence for deep venous thrombosis involving the visualized deep venous structures of the right lower extremity. 3.3 cm simple appearing fluid collection in the right groin. IMPRESSION: 1. No acute DVT in the right lower extremities. 2. Simple appearing fluid collection the right groin measuring 3.3 cm. Electronically signed by: Delroy Menard MD (03/13/2020 6:28 PM) [id number] DICTATED and SIGNED BY: DELROY MENARD MD DATE: 03/13/201827 IMAGING REPORT Signed PATIENT: ROSE CAMPOS GACCOUNT: [id number] : 1945 LOCATION: ER AGE: 74 SEX: F EXAM STATUS: REG ER ORD. PHYSICIAN: IVORY TONY DO REASON: RLQ pain/swelling, eval for infectious process PROCEDURE: CT ABDOMEN PELVIS WO CONTRAST Study: CT abdomen/pelvis without intravenous contrast Indication: Right lower quadrant pain and swelling. Comparison: 07/07/2019 Technique: Helical CT imaging performed of the abdomen and pelvis without the use of intravenous contrast. Sagittal and coronal reformats were obtained. One or more of the following individualized dose reduction techniques were utilized for this examination: 1. Automated exposure control 2. Adjustment of the mA and/or kV according to patient size 3. Use of iterative reconstruction technique. Findings: Inherently limited evaluation without intravenous contrast. The study is also limited from streak artifact and portions of the patient's body wall soft tissues are excluded from the [id number]. Chest: What is seen of the anterior and right lateral chest wall is asymmetrically edematous relative to the left. A similar appearance was present in 2019. Partially imaged moderate right pleural effusion similar to slightly smaller from the comparison. Overlying volume loss and a prominent focus of mineralization. Calcific coronary artery disease. Liver: No newly seen parenchymal abnormality. Gallbladder/Biliary Tree: No significant change from the prior. Pancreas: Redemonstration of fatty infiltration. Spleen: Within normal limits for size. Adrenal Glands: No newly seen mass. Kidneys/Ureters/Bladder: Severely atrophic kidneys. A low-attenuation focus exophytic off the right kidney, image 31 series 2, is unchanged. A few smaller low-attenuation foci elsewhere are unchanged as well. Mostly collapsed urinary bladder limiting evaluation. Reproductive Organs: Unchanged. Colon: Nonspecific soft tissue prominence surrounding the anus without localized surrounding inflammatory changes or an obvious fluid collection. Mild degree of constipation. Appendix: No inflammatory changes at its expected location. Small Bowel: No pathologic dilatation to suggest obstruction. Stomach: No discrete abnormality. Vasculature: Extensive calcific atherosclerosis with notable involvement at the celiac origin that was present previously. Central venous catheter via a left common femoral vein approach terminating within the most inferior aspect of the IVC. Partially imaged vascular graft extending towards the right common/superficial femoral artery/vein. Lymph Nodes: No significant interval change. Peritoneum and Body Wall: Generalized subcutaneous edema again most pronounced at the partially imaged anterior and right lateral chest wall. Partially imaged hypoattenuating collection at the right groin, image 92 series 2, better seen on the same day ultrasound. No similar collection seen elsewhere. No pneumoperitoneum. No large volume ascites. Bones: Multifocal degenerative changes. Redemonstration of osseous findings often seen with renal osteodystrophy unless there is a history of malignancy. Miscellaneous: None. Impression: 1. Partially imaged hypoattenuating fluid collection at the right groin which is better seen on the same day ultrasound. No acute abnormality involving the superficial soft tissues or within the abdomen/pelvis at the right lower quadrant to account for reported pain and swelling. 2. Generalized body wall edema/anasarca, again most notably at the anterior and right lateral chest, which is similar to the 07/07/2019 comparison. 3. Similar to slightly smaller moderate right pleural effusion. 4. Several additional chronic findings not significantly changed since 07/07/2019 are detailed in the body report. Electronically signed by: CLAUDIA ASCENCIO MD (03/13/2020 6:26 PM) [id number] DICTATED and SIGNED BY: CLAUDIA ASCENCIO MD DATE: 03/13/20 182 ([facility]) Course & Med Decision Making: Course & Med Decision Making Pertinent Labs and Imaging studies reviewed. (See chart for details) Patient is a 74-year-old female presenting with report of edema primarily to right breast, RLQ, and RLE. Patient with dialysis catheters to bilateral groins. RLE with increased diameter and pain on palpation. Concern for possible DVT. Patient on coumadin. Labs obtained and posted to chart. INR subtheraputic. CXR without acute process. EKG stable. Venous doppler to RLE and CT abd/pelvis pending at this time. Sign out given to Dr. Miranda for further evaluation and final disposition. Discussed current findings and plan with patient, who acknowledges understanding and agreement. (IVORY TONY DO) Course & Med Decision Making On reevaluation patient states she has had right breast, right lower abdomen and right lower extremity swelling for the past 5 to 6 months and states her dialy sis is no longer working. Patient is receiving dialysis from right femoral subcutaneous access -Suspect this is the fluid collection was seen on right lower extremity ultrasound that shows no DVT. Patient is unsure why she is on Coumadin. INR 1.5 - h/o thrombosed LUE HeRO graft. There is no abscess palpated on physical exam. CT abdomen pelvis is showing anasarca that is evident on physical exam. Labs with chronic macrocytic anemia and leukopenia.K 5.2. Patient reports she has had a mammogram in the past year-has been told her swelling is all related to her kidney disease. Pts' daughter cares for her at home. Pt does not want and LTC facility placement. Pt HD stable with asymptomatic bradycardia (cp is related to her right breast swelling). No indication for admission. Strict ED return precautions were given for typical cardiac chest pain, difficulties breathing or fever. Encouraged urgent outpatient follow-up with PMD and nephrology. Life-threatening processes were considered but are low suspicion at this time, given history and physical exam. Pt was educated on all prescription medications and adverse effects. All patient's questions were answered and pt was stable at time of discharge. Differential includes aortic dissection, aortic aneurysm, acute coronary syndrome, surgical abdomen (appendicitis, cholecystitis, ischemic bowel, strangulated hernia, etc), bowel obstruction or volvulus, bladder outlet obstruction, gastrointestinal bleeding, inflammatory bowel disease, peptic ulcer disease, sepsis, diverticular disease, ureterolithiasis, nephrolithiasis, ovarian or testicular torsion, ectopic I spoken with the patient and her caregivers. I explained the patient's condition, diagnoses and treatment plan based on the information available to me at this time. I have answered the patient and her caregiver's questions and addressed any concerns. The patient and her caregivers have a good understanding of patient's diagnosis, condition and treatment plan as can be expected at this point. Vital signs have been stable. Patient's condition is stable and appropriate for discharge from the emergency department. Patient will pursue further outpatient evaluation with primary care physician or other designated or consulting physician as outlined in the discharge instructions. The patient and/or caregivers are agreeable to this plan of care and follow-up instructions have been explained in detail. The patient and/or caregivers have received these instructions in written form and have expressed an understanding of the discharge instructions. The patient and/or caregivers are aware that any significant change of condition or worsening of symptoms should prompt immediate return to this or the closest emergency department or call to 911. (MELISSA MIRANDA DO) Dragon Disclaimer: Dragon Disclaimer: This electronic medical record was generated, in whole or in part, using a voice recognition dictation system. (IVORY TONY DO) Departure Departure Impression: Primary Impression: Abdominal pain Qualified Codes: R10.11 - Right upper quadrant pain Additional Impressions: ESRD (end stage renal disease) Swelling of right lower extremity Anasarca associated with disorder of kidney Disposition: HOME, SELF-CARE Condition: STABLE Referrals: Joanne HUFF MD (PCP) Patient Instructions: Peripheral Edema Scripts Hydrocodone/Apap 5-325 (NORCO 5-325 TABLET) 1 Each Tablet 1 TAB PO PRN Q6HRS PRN for PAIN, #10 TAB 0 Refills Prov: MELISSA MIRANDA DO 03/13/20 Justicifation of Admission Dx: Justifications for Admission: Justification of Admission Dx: N/A (IVORY TONY DO) Justification of Admission Dx: N/A (MELISSA MIRANDA DO) IVORY TONY DO Mar 13, 2020 16:51 MELISSA MIRANDA DO Mar 13, 2020 18:50
[2020-03-13 17:09] LABS: BASO # 0.1 x10^3/uL (0.0-0.2); BASO % 2 % (0-3); EOS # 0.1 x10^3/uL (0.0-0.7); EOS % 3 % (0-3); HEMOGLOBIN 10.4 g/dL (12.0-15.5); LYMPH # 0.9 x10^3/uL (1.0-4.8); LYMPH % 28 % (24-48); MEAN CORPUSCULAR HEMOGLOBIN 34 pg (25-35); MEAN CORPUSCULAR HGB CONC 31 g/dL (31-37); MEAN CORPUSCULAR VOLUME 111 fL (79-100); MONO # 0.5 x10^3/uL (0.0-1.1); MONO % 14 % (0-9); NEUT # 1.8 x10^3/uL (1.8-7.7); NEUT % 53 % (31-73); PLATELET COUNT 161 x10^3/uL (140-400); RED BLOOD COUNT 3.07 x10^6/uL (3.50-5.40); RED CELL DISTRIBUTION WIDTH 15.8 % (11.5-14.5); WHITE BLOOD COUNT 3.4 x10^3/uL (4.0-11.0)
--- NOTE | 2020-03-13 17:13 | EKG ---
[facility] [address] [place] [address] Test Date: 2020-03-13 Test Time: 16:41:22 Pat Name: ROSE CAMPOS Department: Room: Gender: F Applications Support Lead: KULDIP : 1945 Requested By: IVORY TONY Order Number: [id number] Reading MD: Measurements Intervals [place] Rate: 61 P: ID: QRS: 141 QRSD: 114 T: 17 QT: 474 QTc: 479 Interpretive Statements IRREGULAR RHYTHM, NO P-WAVE FOUND ABNORMAL RIGHT AXIS DEVIATION LOW LIMB LEAD VOLTAGE RIGHT VENTRICULAR HYPERTROPHY PROLONGED QT ABNORMAL ECG RI6.02 No previous ECG available for comparison
[2020-03-13 17:17] LABS: PROTHROMBIN TIME PATIENT 17.6 SEC (11.7-14.0)
[2020-03-13 17:23] LABS: CALCIUM 7.3 mg/dL (8.5-10.1); GFR 6.9; POTASSIUM 5.2 mmol/L (3.5-5.1)
[2020-03-13 17:28] LABS: ALBUMIN 3.3 g/dL (3.4-5.0); ALBUMIN/GLOBULIN RATIO 0.8 (1.0-1.7); MAGNESIUM 2.1 mg/dL (1.8-2.4); TOTAL BILIRUBIN 0.4 mg/dL (0.2-1.0); TOTAL PROTEIN 7.2 g/dL (6.4-8.2)
--- NOTE | 2020-03-13 17:42 | RAD ---
EXAM: PORTABLE CHEST 1V INDICATION: Reason: edema / Spl. Instructions: / History: . TECHNIQUE: Single view COMPARISON: Abdomen pelvis CT without IV contrast 04/16/2019, chest x-ray 04/19/2019. FINDINGS: Similar appearance to the left jugular approach large bore central venous catheter, terminating near the cavoatrial junction. Heart is moderately enlarged, similar to prior. Great vessels again show aortic calcification and a stent in a left-sided mediastinal vessel, possibly representing a persistent left SVC. There is no hilar or mediastinal mass. Lungs show mild atelectatic changes in the right lower lobe, similar to prior. No pneumothorax. Persistent or recurrent small right pleural effusion. There are no significant osseous abnormalities. IMPRESSION: Similar right basilar atelectasis or consolidation with a small right pleural effusion. No new superimposed acute cardiopulmonary process otherwise noted. Electronically signed by: Ramses Hutchinson MD (03/13/2020 5:40 PM) [id number]
--- NOTE | 2020-03-13 18:29 | RAD ---
Study: CT abdomen/pelvis without intravenous contrast Indication: Right lower quadrant pain and swelling. Comparison: 07/07/2019 Technique: Helical CT imaging performed of the abdomen and pelvis without the use of intravenous contrast. Sagittal and coronal reformats were obtained. One or more of the following individualized dose reduction techniques were utilized for this examination: 1. Automated exposure control 2. Adjustment of the mA and/or kV according to patient size 3. Use of iterative reconstruction technique. Findings: Inherently limited evaluation without intravenous contrast. The study is also limited from streak artifact and portions of the patient's body wall soft tissues are excluded from the [id number]. Chest: What is seen of the anterior and right lateral chest wall is asymmetrically edematous relative to the left. A similar appearance was present in 2019. Partially imaged moderate right pleural effusion similar to slightly smaller from the comparison. Overlying volume loss and a prominent focus of mineralization. Calcific coronary artery disease. Liver: No newly seen parenchymal abnormality. Gallbladder/Biliary Tree: No significant change from the prior. Pancreas: Redemonstration of fatty infiltration. Spleen: Within normal limits for size. Adrenal Glands: No newly seen mass. Kidneys/Ureters/Bladder: Severely atrophic kidneys. A low-attenuation focus exophytic off the right kidney, image 31 series 2, is unchanged. A few smaller low-attenuation foci elsewhere are unchanged as well. Mostly collapsed urinary bladder limiting evaluation. Reproductive Organs: Unchanged. Colon: Nonspecific soft tissue prominence surrounding the anus without localized surrounding inflammatory changes or an obvious fluid collection. Mild degree of constipation. Appendix: No inflammatory changes at its expected location. Small Bowel: No pathologic dilatation to suggest obstruction. Stomach: No discrete abnormality. Vasculature: Extensive calcific atherosclerosis with notable involvement at the celiac origin that was present previously. Central venous catheter via a left common femoral vein approach terminating within the most inferior aspect of the IVC. Partially imaged vascular graft extending towards the right common/superficial femoral artery/vein. Lymph Nodes: No significant interval change. Peritoneum and Body Wall: Generalized subcutaneous edema again most pronounced at the partially imaged anterior and right lateral chest wall. Partially imaged hypoattenuating collection at the right groin, image 92 series 2, better seen on the same day ultrasound. No similar collection seen elsewhere. No pneumoperitoneum. No large volume ascites. Bones: Multifocal degenerative changes. Redemonstration of osseous findings often seen with renal osteodystrophy unless there is a history of malignancy. Miscellaneous: None. Impression: 1. Partially imaged hypoattenuating fluid collection at the right groin which is better seen on the same day ultrasound. No acute abnormality involving the superficial soft tissues or within the abdomen/pelvis at the right lower quadrant to account for reported pain and swelling. 2. Generalized body wall edema/anasarca, again most notably at the anterior and right lateral chest, which is similar to the 07/07/2019 comparison. 3. Similar to slightly smaller moderate right pleural effusion. 4. Several additional chronic findings not significantly changed since 07/07/2019 are detailed in the body report. Electronically signed by: CLAUDIA ASCENCIO MD (03/13/2020 6:26 PM) [id number]
--- NOTE | 2020-03-13 18:31 | RAD ---
Exam: Right lower extremity venous duplex study INDICATION: Leg swelling TECHNIQUE: Using a combination of real-time ultrasound imaging and color-flow and pulse Doppler imaging techniques along with graded compression and augmentation, duplex evaluation of the deep venous systems of rightlower extremity was performed. Multiple images were obtained. Findings: There is no sonographic evidence for deep venous thrombosis involving the visualized deep venous structures of the right lower extremity. 3.3 cm simple appearing fluid collection in the right groin. IMPRESSION: 1. No acute DVT in the right lower extremities. 2. Simple appearing fluid collection the right groin measuring 3.3 cm. Electronically signed by: Delroy Cruz MD (03/13/2020 6:28 PM) [id number]
[2020-03-13] MEDS ORDERED: HYDR-3164 PO ×2 (19:40→19:41)
[2020-03-13] MEDS ORDERED: ACETAMINOPHEN 325 MG TABLET. PO ONE (20:00)
[2020-03-13 20:38] VITALS: BP 144/77
== END 2020-03-13 21:48 | disposition home or self-care (01) ==
LOC: ER 16:20
DX: N18.6 End stage renal disease (principal); R10.11 Right upper quadrant pain; R06.02 Shortness of breath; N28.9 Disorder of kidney and ureter, unspecified; R60.0 Localized edema; I11.9 Hypertensive heart disease without heart failure; E11.9 Type 2 diabetes mellitus without complications; Z85.9 Personal history of malignant neoplasm, unspecified; Z90.710 Acquired absence of both cervix and uterus; Z98.890 Other specified postprocedural states
CPT/HCPCS: 36415; 71045; 74176; 80053; 83605; 83690; 83735; 83880; 84484; 85025; 85610; 85730; 93005; 93971; 99285

== ENCOUNTER 2020-03-19 12:17 | Inpatient (IN) | payer MEDICARE, OTHER ==
[~2020-03-19] VITALS: Ht 167.6 cm; Wt 116.8 kg
[2020-03-19] MEDS ORDERED: MORPHINE SULFATE 10 MG/ML VIAL. IV ONE (13:15)
--- NOTE | 2020-03-19 13:20 | RAD ---
AP chest x-ray HISTORY: Shortness of breath. COMPARISON: Chest x-ray March 13, 2020. FINDINGS: Left jugular large bore catheter presumably for hemodialysis or cardiopulmonary support tip at the proximal right atrium stable. There is a metallic stent at the left mediastinum which could be within a venous structure including a left-sided or duplicated SVC, stable. Cardiomegaly stable. No pneumothorax. Mild right pleural effusion has increased along the lateral lung base. Mild basilar right lower lobe atelectasis/infiltrate is stable. IMPRESSION: Mild right pleural effusion has increased in size a mild degree. Basal right lower lobe atelectasis/infiltrate is stable. Catheters and stents as described above. Electronically signed by: Lse Santacruz MD (03/19/2020 1:17 PM) [id number]
[2020-03-19 13:58] LABS: BASO % 1 % (0-3); EOS # 0.1 x10^3/uL (0.0-0.7); EOS % 3 % (0-3); HEMATOCRIT 32.7 % (36.0-47.0); HEMOGLOBIN 10.2 g/dL (12.0-15.5); LYMPH # 0.7 x10^3/uL (1.0-4.8); LYMPH % 25 % (24-48); MEAN CORPUSCULAR HEMOGLOBIN 34 pg (25-35); MEAN CORPUSCULAR HGB CONC 31 g/dL (31-37); MEAN CORPUSCULAR VOLUME 110 fL (79-100); MONO # 0.4 x10^3/uL (0.0-1.1); MONO % 14 % (0-9); NEUT # 1.7 x10^3/uL (1.8-7.7); NEUT % 58 % (31-73); PLATELET COUNT 124 x10^3/uL (140-400); RED BLOOD COUNT 2.97 x10^6/uL (3.50-5.40); RED CELL DISTRIBUTION WIDTH 15.9 % (11.5-14.5)
[2020-03-19 14:08] LABS: PROTHROMBIN TIME PATIENT 15.5 SEC (11.7-14.0)
[2020-03-19 14:13] LABS: CALCIUM 8.5 mg/dL (8.5-10.1); CREATININE 5.5 mg/dL (0.6-1.0); GFR 9.1; POTASSIUM 5.2 mmol/L (3.5-5.1)
[2020-03-19 14:18] LABS: ALBUMIN 3.1 g/dL (3.4-5.0); ALBUMIN/GLOBULIN RATIO 0.9 (1.0-1.7); MAGNESIUM 2.1 mg/dL (1.8-2.4); TOTAL BILIRUBIN 0.4 mg/dL (0.2-1.0); TOTAL PROTEIN 6.7 g/dL (6.4-8.2)
[2020-03-19 14:37] LABS: CREATINE KINASE 41 U/L (26-192)
--- NOTE | 2020-03-19 17:18 | PDOC1 ---
History and Physical Date of Admission Date of Admission DATE: 03/19/20 TIME: 17:18 Identification/Chief Complaint Chief Complaint Shortness of breath, abdominal pain History of Present Illness History of Present Illness Patient is a 74 yo female with with PMHx ESRD on HD, who presents to the ER with complaint of shortness of breath and abdominal pain for the past week. She denies missing any episodes of dialysis, and states her shortness of breath is worse with exertion. She reports upper abdominal pain, 6/10. Patient was seen in the ER one week ago for similar complaints. She also notes that she is too weak to go home and is largely bedbound. She denies fever, chills, nausea, or vomiting. Past Medical History Cardiovascular: HTN, Other Pulmonary: Asthma GI: GERD Heme/Onc: Anemia NOS, Cancer Psych: Anxiety Musculoskeletal: Osteoarthritis Renal/: Chronic renal failure Endocrine: Diabetes, Hypothyroidism Past Surgical History Past Surgical History: Tonsillectomy, Hysterectomy, Other Family History Family History: Diabetes, Hypertension Social History Smoke: No ALCOHOL: none Drugs: None Current Medications Current Medications Current Medications Morphine Sulfate (Morphine Sulfate) 5 mg 1X ONCE IV Last administered on 03/19/20at 14:30; Start 03/19/20 at 13:15; Stop 03/19/20 at 13:16; Status DC Active Scripts Active Geneva 5-325 Tablet (Acetaminophen/Hydrocodone Bitart) 1 Each Tablet 1 Tab PO PRN Q6HRS PRN Catapres (Clonidine Hcl) 0.1 Mg Tablet 0.1 Mg PO PRN Q6HRS PRN 30 Days Topamax (Topiramate) 25 Mg Tablet 25 Mg PO DAILY 30 Days Polyethylene Glycol 3350 17 Gm Powd.pack 17 Gm PO PRN DAILY PRN 30 Days Gabapentin 300 Mg Capsule 300 Mg PO QHS 30 Days Reported Hydrocodone-Apap 7.5-325 (Hydrocodone Bit/Acetaminophen) 1 Each Tablet 1 Tab PO BID PRN Fluticasone Propionate Nasal Elvast[place] (Fluticasone Propionate) 16 Gm Elvaston.susp 2 Elvaston NS DAILY Renvela (Sevelamer Carbonate) 800 Mg Tablet 800 Mg PO TIDWMEALS Vitamin D3 (Cholecalciferol (Vitamin D3)) 2,000 Unit Tab.chew 1,000 Unit PO Ventolin Hfa Inhaler (Albuterol Sulfate) 18 Gm Hfa.aer.ad 2 Puff INH BID Amlodipine Besylate 5 Mg Tablet 5 Mg PO DAILY Nephro-Donovan Tablet (Folic Acid/Vitamin B Comp W-C) 0.8 Mg Tablet 0.8 Mg PO DAILY Sensipar (Cinacalcet Hcl) 30 Mg Tablet 30 Mg PO DAILY Low Dose Aspirin Ec (Aspirin) 81 Mg Tablet.dr 1 Tab PO DAILY Midodrine Hcl 5 Mg Tablet 5 Mg PO PRN PRN Levothyroxine Sodium 50 Mcg Tablet 50 Mcg PO DAILY Ranitidine Hcl 300 Mg Capsule 300 Mg PO BID Allergies Allergies: Coded Allergies: No Known Medication Allergies (Verified Allergy, Unknown, 07/09/19) ROS General: No: Chills, Night Sweats PSYCHOLOGICAL ROS: No: Depression, Hallucinations Eyes: No Double vision, No Loss of vision HEENT: No: Sinus pain, Sore Throat ALLERGY AND IMMUNOLOGY: No: Itchy/Watery Eyes, Nasal Congestion Respiratory: YES: Shortness of breath; No: Cough Cardiovascular: No Chest Pain Gastrointestinal: Yes Abdominal Pain; No Nausea, No Vomiting Genitourinary: No Dysuria, No Frequency Musculoskeletal: Yes Muscular Weakness Neurological: Yes Weakness; No Confusion, No Headaches Skin: No Pruritus, No Rash Physical Exam General: Alert, Oriented X3, Cooperative, mild distress HEENT: Atraumatic, PERRLA Lungs: Other (Bibasilar rales) Heart: RRR, no murmurs Cardiovascular: S1, S2 Abdomen: Normal bowel sounds, No masses, Other (Obese abdomen) Extremities: No clubbing, No cyanosis, Other (+1 pitting edema to bilateral lower extremities) Skin: No rashes, No significant lesion Neuro: Normal speech, Sensation intact Psych/Mental Status: Mood NL Vitals Vitals Vital Signs Date Time Temp Pulse Resp B/P (MAP) Pulse Ox O2 Delivery O2 Flow Rate FiO2 03/19/20 12:24 98.8 63 18 127/53 (77) 98 Room Air 98.8 Labs Labs Laboratory Tests Test 03/19/20 13:35 White Blood Count 3.0 x10^3/uL (4.0-11.0) Red Blood Count 2.97 x10^6/uL (3.50-5.40) Hemoglobin 10.2 g/dL (12.0-15.5) Hematocrit 32.7 % (36.0-47.0) Mean Corpuscular Volume 110 fL (79-100) Mean Corpuscular Hemoglobin 34 pg (25-35) Mean Corpuscular Hemoglobin Concent 31 g/dL (31-37) Red Cell Distribution Width 15.9 % (11.5-14.5) Platelet Count 124 x10^3/uL (140-400) Neutrophils (%) (Auto) 58 % (31-73) Lymphocytes (%) (Auto) 25 % (24-48) Monocytes (%) (Auto) 14 % (0-9) Eosinophils (%) (Auto) 3 % (0-3) Basophils (%) (Auto) 1 % (0-3) Neutrophils # (Auto) 1.7 x10^3/uL (1.8-7.7) Lymphocytes # (Auto) 0.7 x10^3/uL (1.0-4.8) Monocytes # (Auto) 0.4 x10^3/uL (0.0-1.1) Eosinophils # (Auto) 0.1 x10^3/uL (0.0-0.7) Basophils # (Auto) 0.0 x10^3/uL (0.0-0.2) Prothrombin Time 15.5 SEC (11.7-14.0) Prothromb Time International Ratio 1.3 (0.8-1.1) Activated Partial Thromboplast Time 32 SEC (24-38) Sodium Level 141 mmol/L (136-145) Potassium Level 5.2 mmol/L (3.5-5.1) Chloride Level 108 mmol/L (98-107) Carbon Dioxide Level 25 mmol/L (21-32) Anion Gap 8 (6-14) Blood Urea Nitrogen 34 mg/dL (7-20) Creatinine 5.5 mg/dL (0.6-1.0) Estimated GFR (Cockcroft-Gault) 9.1 BUN/Creatinine Ratio 6 (6-20) Glucose Level 90 mg/dL (70-99) Lactic Acid Level 0.7 mmol/L (0.4-2.0) Calcium Level 8.5 mg/dL (8.5-10.1) Magnesium Level 2.1 mg/dL (1.8-2.4) Total Bilirubin 0.4 mg/dL (0.2-1.0) Aspartate Amino Transf (AST/SGOT) 21 U/L (15-37) Alanine Aminotransferase (ALT/SGPT) 21 U/L (14-59) Alkaline Phosphatase 301 U/L (46-116) Creatine Kinase 41 U/L (26-192) Creatine Kinase MB (Mass) 0.7 ng/mL (0.0-3.6) Creatine Kinase MB Relative Index % (0-4) Troponin I Quantitative < 0.017 ng/mL (0.000-0.055) Total Protein 6.7 g/dL (6.4-8.2) Albumin 3.1 g/dL (3.4-5.0) Albumin/Globulin Ratio 0.9 (1.0-1.7) Lipase 71 U/L (73-393) Procalcitonin 0.84 ng/mL (0.00-0.10) Thyroid Stimulating Hormone (TSH) 3.214 uIU/mL (0.358-3.74) Laboratory Tests Test 03/19/20 13:35 White Blood Count 3.0 x10^3/uL (4.0-11.0) Red Blood Count 2.97 x10^6/uL (3.50-5.40) Hemoglobin 10.2 g/dL (12.0-15.5) Hematocrit 32.7 % (36.0-47.0) Mean Corpuscular Volume 110 fL (79-100) Mean Corpuscular Hemoglobin 34 pg (25-35) Mean Corpuscular Hemoglobin Concent 31 g/dL (31-37) Red Cell Distribution Width 15.9 % (11.5-14.5) Platelet Count 124 x10^3/uL (140-400) Neutrophils (%) (Auto) 58 % (31-73) Lymphocytes (%) (Auto) 25 % (24-48) Monocytes (%) (Auto) 14 % (0-9) Eosinophils (%) (Auto) 3 % (0-3) Basophils (%) (Auto) 1 % (0-3) Neutrophils # (Auto) 1.7 x10^3/uL (1.8-7.7) Lymphocytes # (Auto) 0.7 x10^3/uL (1.0-4.8) Monocytes # (Auto) 0.4 x10^3/uL (0.0-1.1) Eosinophils # (Auto) 0.1 x10^3/uL (0.0-0.7) Basophils # (Auto) 0.0 x10^3/uL (0.0-0.2) Prothrombin Time 15.5 SEC (11.7-14.0) Prothromb Time International Ratio 1.3 (0.8-1.1) Activated Partial Thromboplast Time 32 SEC (24-38) Sodium Level 141 mmol/L (136-145) Potassium Level 5.2 mmol/L (3.5-5.1) Chloride Level 108 mmol/L (98-107) Carbon Dioxide Level 25 mmol/L (21-32) Anion Gap 8 (6-14) Blood Urea Nitrogen 34 mg/dL (7-20) Creatinine 5.5 mg/dL (0.6-1.0) Estimated GFR (Cockcroft-Gault) 9.1 BUN/Creatinine Ratio 6 (6-20) Glucose Level 90 mg/dL (70-99) Lactic Acid Level 0.7 mmol/L (0.4-2.0) Calcium Level 8.5 mg/dL (8.5-10.1) Magnesium Level 2.1 mg/dL (1.8-2.4) Total Bilirubin 0.4 mg/dL (0.2-1.0) Aspartate Amino Transf (AST/SGOT) 21 U/L (15-37) Alanine Aminotransferase (ALT/SGPT) 21 U/L (14-59) Alkaline Phosphatase 301 U/L (46-116) Creatine Kinase 41 U/L (26-192) Creatine Kinase MB (Mass) 0.7 ng/mL (0.0-3.6) Creatine Kinase MB Relative Index % (0-4) Troponin I Quantitative < 0.017 ng/mL (0.000-0.055) Total Protein 6.7 g/dL (6.4-8.2) Albumin 3.1 g/dL (3.4-5.0) Albumin/Globulin Ratio 0.9 (1.0-1.7) Lipase 71 U/L (73-393) Procalcitonin 0.84 ng/mL (0.00-0.10) Thyroid Stimulating Hormone (TSH) 3.214 uIU/mL (0.358-3.74) Images Images AP chest x-ray HISTORY: Shortness of breath. COMPARISON: Chest x-ray March 13, 2020. FINDINGS: Left jugular large bore catheter presumably for hemodialysis or cardiopulmonary support tip at the proximal right atrium stable. There is a metallic stent at the left mediastinum which could be within a venous structure including a left-sided or duplicated SVC, stable. Cardiomegaly stable. No pneumothorax. Mild right pleural effusion has increased along the lateral lung base. Mild basilar right lower lobe atelectasis/infiltrate is stable. IMPRESSION: Mild right pleural effusion has increased in size a mild degree. Basal right lower lobe atelectasis/infiltrate is stable. Catheters and stents as described above. VTE Prophylaxis Ordered VTE Prophylaxis Devices: No VTE Pharmacological Prophylaxi: Yes Assessment/Plan Assessment/Plan Pleural effusion Shortness of breath Volume overload ESRD on HD Malnutrition Generalized abdominal pain Plan: Consult to Nephrology for hemodialysis, renal diet. CT abdomen (03/13/20) showed extensive calcific atherosclerosis concerning for possible ischemic bowel. Permissive hypertension with goal BP 150/90 mmHg. Hold amlodipine due to borderline hypotension (105/29). Obtain Echocardiogram. Stool occult blood pending. PT/OT. VTE prophylaxis. Full Code. Justifications for Admission Other Justification ZAFAR CABRERA MD Mar 19, 2020 17:18
--- NOTE | 2020-03-19 17:43 | PHYS DOC ---
Past Medical History Past Medical History: Anemia, CAD, Cancer, Diabetes-Type II, High Cholesterol, Heart Disease, Hypertension, Renal Failure, Other Additional Past Medical Histor: History of cancer in her female parts unsure of which (FAHAD TAYLOR APRN) Past Surgical History: Cancer Surgery, Hysterectomy, Tonsillectomy Additional Past Surgical Histo: FISTULA- L upper arm, dialysis catheter to right groin (FAHAD TAYLOR APRN) Smoking Status: Never Smoker Alcohol Use: None Drug Use: None (FAHAD TAYLOR APRN) General Adult EDM: Chief Complaint: ABDOMINAL PAIN HPI: HPI: Patient is a 74 year old female with history of diabetes, hypertension, high cholesterol, end-stage kidney disease on dialysis Friday last dialyzed on Friday who presents to the ED today complaining of shortness of breath that began today as well as abdominal swelling that has been going on since last week. Patient reports she was seen in the ED at the end of February for the same complaint. She states she was told she could have been admitted but she left. She states her symptoms have not improved and she wants to be admitted. She states she is currently bedbound. (FAHAD TAYLOR APRN) Review of Systems: Review of Systems: Constitutional: Denies fever or chills. [] Eyes: Denies change in visual acuity. [] HENT: Denies nasal congestion or sore throat. [] Respiratory: Reports shortness of breath. Denies cough Cardiovascular: Denies chest pain or edema. [] GI: Reports abdominal pain generalized with swelling, denies nausea, vomiting, bloody stools or diarrhea. [] : Denies dysuria. [] Musculoskeletal: Denies back pain or joint pain. [] Integument: Denies rash. [] Neurologic: Denies headache, focal weakness or sensory changes. [] Psychiatric: Denies depression or anxiety. [] (FAHAD TAYLOR APRN) Heart Score: Risk Factors: Risk Factors: DM, Current or recent (<one month) smoker, HTN, HLP, family history of CAD, obesity. Risk Scores: Score 0 - 3: 2.5% MACE over next 6 weeks - Discharge Home Score 4 - 6: 20.3% MACE over next 6 weeks - Admit for Clinical Observation Score 7 - 10: 72.7% MACE over next 6 weeks - Early Invasive Strategies (CARMENFAHAD LARSON APRN) Current Medications: Current Medications Medications (Trade) Dose Ordered Sig/Kenney Start Time Stop Time Status Last Admin Dose Admin Morphine Sulfate (Morphine Sulfate) 5 mg 1X ONCE 03/19/20 13:15 03/19/20 13:16 DC 03/19/20 14:30 5 MG (FAHAD TAYLOR GRAVITY PROSPECTING OPERATOR) Allergies: Allergies: Allergies Coded Allergies Type Severity Reaction Last Updated Verified No Known Medication Allergies Allergy Unknown 07/09/19 Yes (FAHAD TAYLOR GRAVITY PROSPECTING OPERATOR) Physical Exam: PE: Constitutional: Well developed, well nourished, no acute distress, non-toxic appearance. [] HENT: Normocephalic, atraumatic, bilateral external ears normal, oropharynx moist, no oral exudates, nose normal. [] Eyes: PERRLA, EOMI, conjunctiva normal, no discharge. [] Neck: Normal range of motion, no tenderness, supple, no stridor. [] Cardiovascular:Heart rate regular rhythm, no murmur [] Lungs & Thorax: Bilateral breath sounds clear to auscultation [] Abdomen: Rounded abdomen, anascara noted to the abdomen, bowel sounds normal, soft, no tenderness, no masses, no pulsatile masses. [] Skin: Warm, dry, no erythema, no rash. [] Back: No tenderness, no CVA tenderness. [] Extremities: No tenderness, no cyanosis, no clubbing, ROM intact, +1 edema noted to bilateral lower extremities. Neurologic: Alert and oriented X 3, normal motor function, normal sensory function, no focal deficits noted. [] Psychologic: Affect normal, judgement normal, mood normal. [] (CLAUDIAFAHAD GRAVITY PROSPECTING OPERATOR) Current Patient Data: Labs: Laboratory Tests Test 03/19/20 13:35 White Blood Count 3.0 x10^3/uL (4.0-11.0) L Red Blood Count 2.97 x10^6/uL (3.50-5.40) L Hemoglobin 10.2 g/dL (12.0-15.5) L Hematocrit 32.7 % (36.0-47.0) L Mean Corpuscular Volume 110 fL (79-100) H Mean Corpuscular Hemoglobin 34 pg (25-35) Mean Corpuscular Hemoglobin Concent 31 g/dL (31-37) Red Cell Distribution Width 15.9 % (11.5-14.5) H Platelet Count 124 x10^3/uL (140-400) L Neutrophils (%) (Auto) 58 % (31-73) Lymphocytes (%) (Auto) 25 % (24-48) Monocytes (%) (Auto) 14 % (0-9) H Eosinophils (%) (Auto) 3 % (0-3) Basophils (%) (Auto) 1 % (0-3) Neutrophils # (Auto) 1.7 x10^3/uL (1.8-7.7) L Lymphocytes # (Auto) 0.7 x10^3/uL (1.0-4.8) L Monocytes # (Auto) 0.4 x10^3/uL (0.0-1.1) Eosinophils # (Auto) 0.1 x10^3/uL (0.0-0.7) Basophils # (Auto) 0.0 x10^3/uL (0.0-0.2) Prothrombin Time 15.5 SEC (11.7-14.0) H Prothrombin Time INR 1.3 (0.8-1.1) H Activated Partial Thromboplast Time 32 SEC (24-38) Sodium Level 141 mmol/L (136-145) Potassium Level 5.2 mmol/L (3.5-5.1) H Chloride Level 108 mmol/L (98-107) H Carbon Dioxide Level 25 mmol/L (21-32) Anion Gap 8 (6-14) Blood Urea Nitrogen 34 mg/dL (7-20) H Creatinine 5.5 mg/dL (0.6-1.0) H Estimated GFR (Cockcroft-Gault) 9.1 BUN/Creatinine Ratio 6 (6-20) Glucose Level 90 mg/dL (70-99) Lactic Acid Level 0.7 mmol/L (0.4-2.0) Calcium Level 8.5 mg/dL (8.5-10.1) Magnesium Level 2.1 mg/dL (1.8-2.4) Total Bilirubin 0.4 mg/dL (0.2-1.0) Aspartate Amino Transferase (AST) 21 U/L (15-37) Alanine Aminotransferase (ALT) 21 U/L (14-59) Alkaline Phosphatase 301 U/L (46-116) H Creatine Kinase 41 U/L (26-192) Creatine Kinase MB (Mass) 0.7 ng/mL (0.0-3.6) Creatine Kinase MB Relative Index % (0-4) Troponin I Quantitative < 0.017 ng/mL (0.000-0.055) Total Protein 6.7 g/dL (6.4-8.2) Albumin 3.1 g/dL (3.4-5.0) L Albumin/Globulin Ratio 0.9 (1.0-1.7) L Lipase 71 U/L (73-393) L Procalcitonin 0.84 ng/mL (0.00-0.10) H Thyroid Stimulating Hormone (TSH) 3.214 uIU/mL (0.358-3.74) Laboratory Tests 03/19/20 13:35 Laboratory Tests 03/19/20 13:35 Vital Signs: Vital Signs Date Time Temp Pulse Resp B/P (MAP) Pulse Ox O2 Delivery O2 Flow Rate FiO2 03/19/20 12:24 98.8 63 18 127/53 (77) 98 Room Air 98.8 (FAHAD TAYLOR APRN) EKG: EK interpreted by Dr. Tony sinus rhythm HR 60 no STEMI[] (FAHAD TAYLOR APRN) Radiology/Procedures: Radiology/Procedures: []PROCEDURE: PORTABLE CHEST 1V AP chest x-ray HISTORY: Shortness of breath. COMPARISON: Chest x-ray March 13, 2020. FINDINGS: Left jugular large bore catheter presumably for hemodialysis or cardiopulmonary support tip at the proximal right atrium stable. There is a metallic stent at the left mediastinum which could be within a venous structure including a left-sided or duplicated SVC, stable. Cardiomegaly stable. No pneumothorax. Mild right pleural effusion has increased along the lateral lung base. Mild basilar right lower lobe atelectasis/infiltrate is stable. IMPRESSION: Mild right pleural effusion has increased in size a mild degree. Basal right lower lobe atelectasis/infiltrate is stable. Catheters and stents as described above. Electronically signed by: Femi Santacruz MD (03/19/2020 1:17 PM) [id number] DICTATED and SIGNED BY: FEMI SANTACRUZ MD DATE: 03/19/20 1317 (FAHAD TAYLOR APRN) Course & Med Decision Making: Course & Med Decision Making Pertinent Labs and Imaging studies reviewed. (See chart for details) This is a 74-year-old female patient presenting to the ED today complaining of generalized abdominal pain with that began last week as well as shortness of breath that began today. Vitals on arrival to the ED temperature 98.8, heart rate 63, respiration 18 on room air, O2 sats 98%, blood pressure 127/53. Chest x-ray is negative. Patient's labs are negative for any acute findings. Results were communicated to her. She states she is bedbound and not able to go home. She also states she still feels short of air on exertion. Spoke with Dr. Valles who accepted patient for admission. Nephrology consult placed. (FAHAD TAYLOR APRN) Dragon Disclaimer: Stewart Disclaimer: This electronic medical record was generated, in whole or in part, using a voice recognition dictation system. (FAHAD TAYLOR APRN) Departure Departure Impression: Primary Impression: ESRD (end stage renal disease) Additional Impressions: Shortness of breath Abdominal pain Qualified Codes: R10.84 - Generalized abdominal pain Disposition: ADMITTED INPATIENT Condition: STABLE Referrals: Joanne HUFF MD (PCP) Scripts Midodrine Hcl (MIDODRINE HCL) 2.5 Mg Tablet 2.5 MG PO [id number] for low bp for 30 Days, #90 TAB Prov: GILBERT SUNG MD 03/23/20 Justicifation of Admission Dx: Justifications for Admission: Justification of Admission Dx: Yes (worsening SOA) (FAHAD TAYLOR APRN) Attending Signature Attending Signature I have reviewed the PA/RAILWAY SIGNAL TECHNICIAN's note and plan of care. I was available for consultation as needed during the patient's visit in the emergency department. I agree with the clinical impression, plan, and disposition. (IVORY TONY DO) FAHAD TAYLOR APRN Mar 19, 2020 17:43 IVORY TONY DO Mar 27, 2020 01:46
[2020-03-19 18:00] VITALS: BP 124/42
[2020-03-19] MEDS ORDERED: ONDANSETRON PF 4 MG/2 ML VIAL. IV PRN (18:00)
[2020-03-19] MEDS ORDERED: LEVO75TA5 PO (20:34)
--- NOTE | 2020-03-19 21:30 | NUR ---
Patient refused dressing to left heel. Area left open to air. Patient stated that any type of dressing on her heel causes her pain.
--- NOTE | 2020-03-19 21:30 | NUR ---
Patient admitted from ER to room 434 at 1825 tonight per cart. Admitting diagnosis: intermittent SOA, abdominal pain and swelling to stomach. Patient is an ESRD patient and does dialysis on Tuesdays, and Saturdays. Patient is alert and oriented X4 with mid [place]. Patient lives in an apartment and states she is bedbound. Patient has a hospital bed, lift and wheelchair at home. Patient c/o abdominal pain and back pain which is chronic. Patient states she hasn't been able to walk for a long time. Patient has a non-functioning AV shunt in her left upper arm and an AV shunt in her right thigh. Patient also has a permacath in her left groin. Patient has NKA. Dr. Wellington notified of consult for dialysis. In no acute distress at this time. Will continue to monitor. Patient also has a trapeze over her bed.
[2020-03-19] MEDS: MORPHINE SULFATE 4 MG/ML VIAL. IV PRN (21:33)
[2020-03-19 23:00] VITALS: BP 105/29
[2020-03-20] MEDS: MORPHINE SULFATE 4 MG/ML VIAL. IV PRN (01:06)
[2020-03-20 03:00] VITALS: BP 95/50
[2020-03-20] MEDS ORDERED: POLYETHYLENE GLYCOL 3350 17 GM PACKET. PO PRN (03:00)
[2020-03-20] MEDS ORDERED: cloNIDine HCL 0.1 MG TABLET PO PRN (03:00)
[2020-03-20] MEDS: LEVOTHYROXINE 75 MCG TABLET PO SCH (06:04)
[2020-03-20 07:00] VITALS: BP 96/32
[2020-03-20] MEDS: ALBUTEROL SULFATE 2.5 MG/3 ML NEBU. NEB SCH ×4 (07:18→19:59)
[2020-03-20 09:00] LABS: BASO % 1 % (0-3); EOS # 0.1 x10^3/uL (0.0-0.7); EOS % 3 % (0-3); HEMATOCRIT 31.9 % (36.0-47.0); HEMOGLOBIN 9.8 g/dL (12.0-15.5); LYMPH # 0.8 x10^3/uL (1.0-4.8); LYMPH % 33 % (24-48); MEAN CORPUSCULAR HEMOGLOBIN 34 pg (25-35); MEAN CORPUSCULAR HGB CONC 31 g/dL (31-37); MEAN CORPUSCULAR VOLUME 112 fL (79-100); MONO # 0.3 x10^3/uL (0.0-1.1); MONO % 12 % (0-9); NEUT # 1.3 x10^3/uL (1.8-7.7); NEUT % 51 % (31-73); PLATELET COUNT 124 x10^3/uL (140-400); RED BLOOD COUNT 2.86 x10^6/uL (3.50-5.40); RED CELL DISTRIBUTION WIDTH 16.3 % (11.5-14.5); WHITE BLOOD COUNT 2.5 x10^3/uL (4.0-11.0)
[2020-03-20] MEDS ORDERED: NON FORMULARY ITEM (Albuterol Sulfate (Ventolin Hfa Inhaler) 2 PUFF) INH SCH (09:00)
[2020-03-20 09:21] LABS: CALCIUM 7.8 mg/dL (8.5-10.1); GFR 8.2; POTASSIUM 5.6 mmol/L (3.5-5.1)
[2020-03-20 09:24] LABS: CHOLESTEROL/HDL RATIO 2.7
[2020-03-20] MEDS: ASPIRIN ENTERIC COATED 81 MG TABLET.DR. PO SCH (10:40)
[2020-03-20] MEDS: TOPIRAMATE 25 MG TABLET. PO SCH (10:40)
[2020-03-20] MEDS: DOCUSATE SODIUM 100 MG CAPSULE. PO SCH ×2 (10:40→21:52)
[2020-03-20] MEDS: SEVELAMER CARBONATE 800 MG TABLET. PO SCH ×3 (10:40→18:34)
[2020-03-20] MEDS: HEPARIN for SUB-Q USE 5,000 UNIT/ML VIAL. SQ SCH ×2 (10:48→21:56)
[2020-03-20 11:15] VITALS: BP 86/34
[2020-03-20 13:50] LABS: ANISOCYTOSIS MOD; HYPOCHROMIA SLIGHT; PLT ESTIMATE ADEQUATE (ADEQUATE); POIKILOCYTOSIS SLIGHT
[2020-03-20] MEDS ORDERED: SODIUM POLYSTYRENE SULFON/SORB 15 GM/60 ML ORAL.SUSP. PO ONE (14:30)
--- NOTE | 2020-03-20 14:51 | PDOC ---
[facility] PROGRESS NOTE Date of Service DOS: DATE: 03/20/20 TIME: 14:47 Chief Complaint Chief Complaint Right pleural effusion Shortness of breath Volume overload ESRD on HD Malnutrition Generalized abdominal pain Plan: Consult to Nephrology for hemodialysis, renal diet. CT abdomen (03/13/20) showed extensive calcific atherosclerosis concerning for possible ischemic bowel. Permissive hypertension with goal BP 150/90 mmHg. Hold amlodipine due to borderline hypotension (105/29). Obtain Echocardiogram. Stool occult blood pending. PT/OT. VTE prophylaxis. Full Code. Pending pulmonology consult Heparin for DVT prophylaxis MPOA not designated at this time History of Present Illness History of Present Illness 74 yo female with with PMHx ESRD on HD, who presents to the ER with complaint of shortness of breath and abdominal pain for the past week. She denies missing any episodes of dialysis, and states her shortness of breath is worse with exertion. She reports upper abdominal pain, 6/10. Patient was seen in the ER one week ago for similar complaints. She also notes that she is too weak to go home and is largely bedbound. She denies fever, chills, nausea, or vomiting. 03/20/2020 No acute events overnight. Patient continues to complain of right-sided discomfort and shortness of breath. Patient states she was part of the hospital mainly because while her sister was helping her get up out of bed she became very short of breath. Patient endorsed that she has been treated for pleural effusion in the past a couple years ago and she had a thoracentesis as well. For this reason I will consult pulmonology for possible thoracentesis. Likely her dialysis will not be able to diurese her pleural effusion. Patient was seen and examined bedside. Patient's chart, labs, images were reviewed and discussed with RN Vitals/I&O Vitals/I&O: Vital Signs Date Time Temp Pulse Resp B/P (MAP) Pulse Ox O2 Delivery O2 Flow Rate FiO2 03/20/20 12:04 Room Air 03/20/20 11:15 98.3 61 18 86/34 (51) 95 98.3 I & O 03/19/20 03/19/20 03/20/20 15:00 23:00 07:00 Intake Total 320 ml Output Total 0 ml Balance 320 ml Physical Exam Physical Exam: GEN: No apparent distress. Alert and oriented HEENT: Normal cephalic, atraumatic, external auditory canals are patent NECK: Supple, no JVD, no thyromegaly was noted LUNGS: Bilateral bibasilar crackles HEART: RRR, S1, S2 present. Peripheral pulses intact, no obvious murmurs noted ABDOMEN: Obese, soft, nontender. Positive bowel sounds, no organomegaly, normal bowel sounds EXTREMITIES: +1 pedal edema General: Alert, Oriented X3, Cooperative, mild distress Lungs: Clear Abdomen: Normal bowel sounds, No masses, Other (Obese abdomen) Extremities: No clubbing, No cyanosis, Other (+1 pitting edema to bilateral lower extremities) Skin: No rashes, No significant lesion Labs Labs: Laboratory Tests Test 03/20/20 08:15 White Blood Count 2.5 x10^3/uL (4.0-11.0) Red Blood Count 2.86 x10^6/uL (3.50-5.40) Hemoglobin 9.8 g/dL (12.0-15.5) Hematocrit 31.9 % (36.0-47.0) Mean Corpuscular Volume 112 fL (79-100) Mean Corpuscular Hemoglobin 34 pg (25-35) Mean Corpuscular Hemoglobin Concent 31 g/dL (31-37) Red Cell Distribution Width 16.3 % (11.5-14.5) Platelet Count 124 x10^3/uL (140-400) Neutrophils (%) (Auto) 51 % (31-73) Lymphocytes (%) (Auto) 33 % (24-48) Monocytes (%) (Auto) 12 % (0-9) Eosinophils (%) (Auto) 3 % (0-3) Basophils (%) (Auto) 1 % (0-3) Neutrophils # (Auto) 1.3 x10^3/uL (1.8-7.7) Lymphocytes # (Auto) 0.8 x10^3/uL (1.0-4.8) Monocytes # (Auto) 0.3 x10^3/uL (0.0-1.1) Eosinophils # (Auto) 0.1 x10^3/uL (0.0-0.7) Basophils # (Auto) 0.0 x10^3/uL (0.0-0.2) Platelet Estimate Adequate (ADEQUATE) Hypochromasia Slight Poikilocytosis Slight Anisocytosis Mod Macrocytosis Mod Sodium Level 141 mmol/L (136-145) Potassium Level 5.6 mmol/L (3.5-5.1) Chloride Level 108 mmol/L (98-107) Carbon Dioxide Level 23 mmol/L (21-32) Anion Gap 10 (6-14) Blood Urea Nitrogen 46 mg/dL (7-20) Creatinine 6.0 mg/dL (0.6-1.0) Estimated GFR (Cockcroft-Gault) 8.2 Glucose Level 79 mg/dL (70-99) Calcium Level 7.8 mg/dL (8.5-10.1) Triglycerides Level 34 mg/dL (0-150) Cholesterol Level 142 mg/dL (0-200) LDL Cholesterol, Calculated 82 mg/dL (0-100) VLDL Cholesterol, Calculated 7 mg/dL (0-40) Non-HDL Cholesterol Calculated 89 mg/dL (0-129) HDL Cholesterol 53 mg/dL (40-60) Cholesterol/HDL Ratio 2.7 Assessment and Plan Assessmemt and Plan Problems Medical Problems: (1) Abdominal pain Status: Acute (2) ESRD (end stage renal disease) on dialysis Status: Acute (3) Shortness of breath Status: Acute Comment Review of Relevant I have reviewed the following items gloria (where applicable) has been applied. Medications: Current Medications Medications (Trade) Dose Ordered Sig/Kenney Route PRN Reason Start Time Stop Time Status Last Admin Dose Admin Morphine Sulfate (Morphine Sulfate) 4 mg PRN Q2HR PRN IV PAIN 03/19/20 18:00 03/20/20 17:59 03/20/20 01:06 Aspirin (Ecotrin) 81 mg DAILYWBKFT PO 03/20/20 08:00 03/20/20 10:40 Levothyroxine Sodium (Synthroid) 75 mcg DAILY06 PO 03/20/20 06:00 03/20/20 06:04 Sevelamer Carbonate (Renvela) 800 mg TIDWMEALS PO 03/20/20 08:00 03/20/20 14:08 Topiramate (Topamax) 25 mg DAILY PO 03/20/20 09:00 03/20/20 10:40 Docusate Sodium (Colace) 100 mg BID PO 03/20/20 09:00 03/20/20 10:40 Heparin Sodium (Porcine) (Heparin Sodium) 5,000 unit Q12HR SQ 03/20/20 09:00 03/20/20 10:48 Albuterol Sulfate (Ventolin Neb Soln) 2.5 mg RTQID NEB 03/20/20 08:00 03/20/20 12:03 Justifications for Admission Other Justification GILBERT SUNG MD Mar 20, 2020 14:51
[2020-03-20 15:22] VITALS: BP 93/29
--- NOTE | 2020-03-20 15:27 | NUR ---
Dr. Dias in room while 1100 vital signs were being taken. Dr. Dias informed of pt blood pressure being low and stated to monitor it. will continue to monitor.
[2020-03-20 19:10] VITALS: BP 96/32
--- NOTE | 2020-03-20 19:32 | CONS ---
DATE OF CONSULTATION: REQUESTING PHYSICIAN: Dr. Alex Valles. REASON FOR CONSULTATION: Renal failure. HISTORY OF PRESENT ILLNESS: A 74-year-old female well known to this physician with history of end-stage renal disease, hemodialysis dependent. Her end-stage renal disease is secondary to diabetic nephropathy and hypertensive nephrosclerosis. She is admitted now with complaints of upper abdominal pain, weakness and some shortness of breath. She will need ongoing dialysis and management of comorbidities associated with the same and as such, Nephrology evaluation requested. PAST MEDICAL HISTORY: Diabetes mellitus, hypertension, end-stage renal disease, hemodialysis dependent on Friday, and Friday, anemia of chronic kidney disease, secondary hyperparathyroidism, renal disease, hypothyroidism, osteoarthritis, depression, anxiety, GE reflux disease. PAST SURGICAL HISTORY: Hysterectomy, tonsillectomy. ALLERGIES: None noted. MEDICATIONS: Reviewed per medication list. FAMILY HISTORY: Noncontributory. SOCIAL HISTORY: The patient resides with assistance from family. REVIEW OF SYSTEMS: No headache, sinus problem, nasal drainage, epistaxis, change in vision or hearing. No difficulty swallowing. No fever, chills, cough, sputum production, or hemoptysis. No chest pain. No shortness of breath at this time. No further abdominal pain. No nausea, vomiting, diarrhea. No seizures. She does have history of malignancy. PHYSICAL EXAMINATION: GENERAL APPEARANCE: The patient is awake, conversant, appropriate. She is in a supine position with no shortness of breath. HEENT: Clear. NECK: No increased JVD. No thyromegaly, mass or adenopathy. LUNGS: Clear. CARDIAC: Without S3 or rub. ABDOMEN: Soft, nontender, no bruits. She is obese. EXTREMITIES: 1+ lower extremity edema. NEUROLOGIC: Nonfocal, nonlocalizing. PSYCHIATRIC: Fair attention to detail, appropriate affect. LABORATORY DATA: Hemoglobin 9.8, hematocrit 31.9. Sodium 141, potassium 5.6, chloride 108, CO2 of 23, BUN 46, creatinine 6.0, calcium 7.8. IMPRESSION: 1. End-stage renal disease secondary to diabetic nephropathy and hypertensive nephrosclerosis -- hemodialysis dependent, Friday, and Friday. 2. Anemia of chronic kidney disease. 3. Diabetes mellitus. 4. Hypertension. 5. Abdominal discomfort -- appears to have improved. PLAN: 1. Ongoing dialysis Friday, and Friday. Kayexalate 1 dose today for potassium 5.6. 2. Epogen for anemia of chronic kidney disease. We will follow. IVORY MAYNARD MD DR: MICKEY/jen JOB#: [id number] / [id number]
[2020-03-20] MEDS: GABAPENTIN 300 MG CAPSULE. PO SCH (21:52)
[2020-03-20 22:45] VITALS: BP 86/35
[2020-03-21 03:30] VITALS: BP 91/32
[2020-03-21] MEDS: LEVOTHYROXINE 75 MCG TABLET PO SCH (06:07)
[2020-03-21 07:00] VITALS: BP 105/27
[2020-03-21] MEDS: ALBUTEROL SULFATE 2.5 MG/3 ML NEBU. NEB SCH ×4 (07:36→20:05)
[2020-03-21] MEDS: DOCUSATE SODIUM 100 MG CAPSULE. PO SCH ×2 (08:14→21:04)
[2020-03-21] MEDS: TOPIRAMATE 25 MG TABLET. PO SCH (08:14)
[2020-03-21] MEDS: SEVELAMER CARBONATE 800 MG TABLET. PO SCH ×3 (08:14→17:00)
[2020-03-21] MEDS: HYDROcodone/APAP 5/325MG 1 TAB TABLET PO PRN ×2 (08:15→21:06)
[2020-03-21] MEDS: ASPIRIN ENTERIC COATED 81 MG TABLET.DR. PO SCH (08:15)
[2020-03-21 08:19] VITALS: BP 125/37
[2020-03-21] MEDS: HEPARIN for SUB-Q USE 5,000 UNIT/ML VIAL. SQ SCH ×2 (08:19→21:09)
[2020-03-21 11:00] VITALS: BP 84/24
[2020-03-21] MEDS ORDERED: LIDOCAINE 1% PF 2 ML VIAL. ONE ×2 (11:00→11:06)
[2020-03-21] MEDS ORDERED: ALBUMIN HUMAN 25% 100 ML IV ONE (11:00)
[2020-03-21] MEDS ORDERED: LIDOCAINE 1% Multi-Dose 20 ML VIAL. INJ ONE (11:00)
[2020-03-21 11:10] LABS: BASO # 0.1 x10^3/uL (0.0-0.2); BASO % 2 % (0-3); EOS # 0.1 x10^3/uL (0.0-0.7); EOS % 3 % (0-3); HEMATOCRIT 29.1 % (36.0-47.0); LYMPH # 0.8 x10^3/uL (1.0-4.8); LYMPH % 27 % (24-48); MEAN CORPUSCULAR HEMOGLOBIN 34 pg (25-35); MEAN CORPUSCULAR HGB CONC 31 g/dL (31-37); MEAN CORPUSCULAR VOLUME 110 fL (79-100); MONO # 0.3 x10^3/uL (0.0-1.1); MONO % 10 % (0-9); NEUT # 1.7 x10^3/uL (1.8-7.7); NEUT % 57 % (31-73); PLATELET COUNT 120 x10^3/uL (140-400); RED BLOOD COUNT 2.64 x10^6/uL (3.50-5.40); RED CELL DISTRIBUTION WIDTH 15.8 % (11.5-14.5)
[2020-03-21] MEDS ORDERED: IV NORMAL SALINE 1000ML BAG 1,000 ML IV PRN ×2 (12:37)
[2020-03-21] MEDS ORDERED: DIALYSIS PATIENT. MC PRN ×2 (12:45)
[2020-03-21 13:35] LABS: ALBUMIN 2.8 g/dL (3.4-5.0); ALBUMIN/GLOBULIN RATIO 0.8 (1.0-1.7); CALCIUM 7.3 mg/dL (8.5-10.1); CREATININE 7.2 mg/dL (0.6-1.0); GFR 6.7; POTASSIUM 5.8 mmol/L (3.5-5.1); TOTAL BILIRUBIN 0.3 mg/dL (0.2-1.0); TOTAL PROTEIN 6.1 g/dL (6.4-8.2)
--- NOTE | 2020-03-21 13:46 | PDOC ---
[facility] PROGRESS NOTE Date of Service DOS: DATE: 03/21/20 TIME: 13:45 Chief Complaint Chief Complaint Right pleural effusion Shortness of breath Volume overload ESRD on HD Malnutrition Generalized abdominal pain Plan: Consult to Nephrology for hemodialysis, renal diet. CT abdomen (03/13/20) showed extensive calcific atherosclerosis concerning for possible ischemic bowel. Permissive hypertension with goal BP 150/90 mmHg. Hold amlodipine due to borderline hypotension (105/29). Obtain Echocardiogram. Stool occult blood pending. PT/OT. VTE prophylaxis. Full Code. Pending pulmonology consult Heparin for DVT prophylaxis MPOA not designated at this time History of Present Illness History of Present Illness 74 yo female with with PMHx ESRD on HD, who presents to the ER with complaint of shortness of breath and abdominal pain for the past week. She denies missing any episodes of dialysis, and states her shortness of breath is worse with exertion. She reports upper abdominal pain, 6/10. Patient was seen in the ER one week ago for similar complaints. She also notes that she is too weak to go home and is largely bedbound. She denies fever, chills, nausea, or vomiting. 03/20/2020 No acute events overnight. Patient continues to complain of right-sided discomfort and shortness of breath. Patient states she was part of the hospital mainly because while her sister was helping her get up out of bed she became very short of breath. Patient endorsed that she has been treated for pleural effusion in the past a couple years ago and she had a thoracentesis as well. For this reason I will consult pulmonology for possible thoracentesis. Likely her dialysis will not be able to diurese her pleural effusion. Patient was seen and examined bedside. Patient's chart, labs, images were reviewed and discussed with RN 03/21/2020 No acute events overnight. Patient seen and examined bedside. In route to hemodialysis this morning. Patient's chart, labs, images were reviewed and discussed with RN Vitals/I&O Vitals/I&O: Vital Signs Date Time Temp Pulse Resp B/P (MAP) Pulse Ox O2 Delivery O2 Flow Rate FiO2 03/21/20 11:48 96 Room Air 03/21/20 11:00 97.8 59 18 84/24 (44) 97.8 I & O 03/20/20 03/20/20 03/21/20 15:00 23:00 07:00 Intake Total 560 ml Balance 560 ml Physical Exam Physical Exam: GEN: No apparent distress. Alert and oriented HEENT: Normal cephalic, atraumatic, external auditory canals are patent NECK: Supple, no JVD, no thyromegaly was noted LUNGS: Bilateral bibasilar crackles HEART: RRR, S1, S2 present. Peripheral pulses intact, no obvious murmurs noted ABDOMEN: Obese, soft, nontender. Positive bowel sounds, no organomegaly, normal bowel sounds EXTREMITIES: +1 pedal edema General: Alert, Oriented X3, Cooperative, mild distress Lungs: Clear Abdomen: Normal bowel sounds, No masses, Other (Obese abdomen) Extremities: No clubbing, No cyanosis, Other (+1 pitting edema to bilateral lower extremities) Skin: No rashes, No significant lesion Labs Labs: Laboratory Tests Test 03/21/20 10:50 White Blood Count 3.0 x10^3/uL (4.0-11.0) Red Blood Count 2.64 x10^6/uL (3.50-5.40) Hemoglobin 9.0 g/dL (12.0-15.5) Hematocrit 29.1 % (36.0-47.0) Mean Corpuscular Volume 110 fL (79-100) Mean Corpuscular Hemoglobin 34 pg (25-35) Mean Corpuscular Hemoglobin Concent 31 g/dL (31-37) Red Cell Distribution Width 15.8 % (11.5-14.5) Platelet Count 120 x10^3/uL (140-400) Neutrophils (%) (Auto) 57 % (31-73) Lymphocytes (%) (Auto) 27 % (24-48) Monocytes (%) (Auto) 10 % (0-9) Eosinophils (%) (Auto) 3 % (0-3) Basophils (%) (Auto) 2 % (0-3) Neutrophils # (Auto) 1.7 x10^3/uL (1.8-7.7) Lymphocytes # (Auto) 0.8 x10^3/uL (1.0-4.8) Monocytes # (Auto) 0.3 x10^3/uL (0.0-1.1) Eosinophils # (Auto) 0.1 x10^3/uL (0.0-0.7) Basophils # (Auto) 0.1 x10^3/uL (0.0-0.2) Sodium Level 138 mmol/L (136-145) Potassium Level 5.8 mmol/L (3.5-5.1) Chloride Level 106 mmol/L (98-107) Carbon Dioxide Level 22 mmol/L (21-32) Anion Gap 10 (6-14) Blood Urea Nitrogen 61 mg/dL (7-20) Creatinine 7.2 mg/dL (0.6-1.0) Estimated GFR (Cockcroft-Gault) 6.7 BUN/Creatinine Ratio 8 (6-20) Glucose Level 118 mg/dL (70-99) Calcium Level 7.3 mg/dL (8.5-10.1) Total Bilirubin 0.3 mg/dL (0.2-1.0) Aspartate Amino Transf (AST/SGOT) 29 U/L (15-37) Alanine Aminotransferase (ALT/SGPT) 19 U/L (14-59) Alkaline Phosphatase 266 U/L (46-116) Total Protein 6.1 g/dL (6.4-8.2) Albumin 2.8 g/dL (3.4-5.0) Albumin/Globulin Ratio 0.8 (1.0-1.7) Assessment and Plan Assessmemt and Plan Problems Medical Problems: (1) Abdominal pain Status: Acute (2) ESRD (end stage renal disease) on dialysis Status: Acute (3) Shortness of breath Status: Acute Comment Review of Relevant I have reviewed the following items gloria (where applicable) has been applied. Medications: Current Medications Medications (Trade) Dose Ordered Sig/Kenney Route PRN Reason Start Time Stop Time Status Last Admin Dose Admin Gabapentin (Neurontin) 300 mg QHS PO 03/20/20 21:00 03/20/20 21:52 Sodium Polystyrene Sulfonate (Kayexalate) 15 gm 1X ONCE PO 03/20/20 14:30 03/20/20 14:35 DC 03/20/20 18:34 Justifications for Admission Other Justification GILBERT SUNG MD Mar 21, 2020 13:46
--- NOTE | 2020-03-21 15:35 | PDOC ---
Renal-Progress Notes Subjective Notes Notes NO NEW COMPLAINTS History of Present Illness Hx of present illness STABLE Vitals Vitals Vital Signs Date Time Temp Pulse Resp B/P (MAP) Pulse Ox O2 Delivery O2 Flow Rate FiO2 03/21/20 11:48 96 Room Air 03/21/20 11:00 97.8 59 18 84/24 (44) 97.8 Weight Weight [ ] I.O. Intake and Output Intake and Output 03/21/20 07:00 Intake Total 560 ml Balance 560 ml Intake Oral 560 ml # Bowel Movements 1 Labs Labs Laboratory Tests Test 03/21/20 10:50 White Blood Count 3.0 x10^3/uL (4.0-11.0) Red Blood Count 2.64 x10^6/uL (3.50-5.40) Hemoglobin 9.0 g/dL (12.0-15.5) Hematocrit 29.1 % (36.0-47.0) Mean Corpuscular Volume 110 fL (79-100) Mean Corpuscular Hemoglobin 34 pg (25-35) Mean Corpuscular Hemoglobin Concent 31 g/dL (31-37) Red Cell Distribution Width 15.8 % (11.5-14.5) Platelet Count 120 x10^3/uL (140-400) Neutrophils (%) (Auto) 57 % (31-73) Lymphocytes (%) (Auto) 27 % (24-48) Monocytes (%) (Auto) 10 % (0-9) Eosinophils (%) (Auto) 3 % (0-3) Basophils (%) (Auto) 2 % (0-3) Neutrophils # (Auto) 1.7 x10^3/uL (1.8-7.7) Lymphocytes # (Auto) 0.8 x10^3/uL (1.0-4.8) Monocytes # (Auto) 0.3 x10^3/uL (0.0-1.1) Eosinophils # (Auto) 0.1 x10^3/uL (0.0-0.7) Basophils # (Auto) 0.1 x10^3/uL (0.0-0.2) Sodium Level 138 mmol/L (136-145) Potassium Level 5.8 mmol/L (3.5-5.1) Chloride Level 106 mmol/L (98-107) Carbon Dioxide Level 22 mmol/L (21-32) Anion Gap 10 (6-14) Blood Urea Nitrogen 61 mg/dL (7-20) Creatinine 7.2 mg/dL (0.6-1.0) Estimated GFR (Cockcroft-Gault) 6.7 BUN/Creatinine Ratio 8 (6-20) Glucose Level 118 mg/dL (70-99) Calcium Level 7.3 mg/dL (8.5-10.1) Total Bilirubin 0.3 mg/dL (0.2-1.0) Aspartate Amino Transf (AST/SGOT) 29 U/L (15-37) Alanine Aminotransferase (ALT/SGPT) 19 U/L (14-59) Alkaline Phosphatase 266 U/L (46-116) Total Protein 6.1 g/dL (6.4-8.2) Albumin 2.8 g/dL (3.4-5.0) Albumin/Globulin Ratio 0.8 (1.0-1.7) Review of Systems Constitutional: yes: alert, oriented Ears/Nose/Throat: Yes: no symptom reported Eyes: Yes: no symptom reported Pulmonary: Yes no symptom reported Cardiovascular: Yes no symptom reported Gastrointestional: Yes: no symptom reported Genitourinary: Yes: no symptom reported Musculoskeletal: Yes: no symptom reported Skin: Yes no symptom reported Psychiatric/Neurological: Yes: no symptom reported Endocrine: Yes: no symptom reported Physical Exam General Appearance: no apparent distress Skin: warm Respiratory: bilateral CTA, decreased breath sounds Heart: S1S2 Abdomen: soft, bowel sounds present Genitourinary: bladder flat Extremities: pulses present Neurology: alert, oriented Musculoskeletal: Osteoarthritis Assessment Assessment IMP ESRD ANEMIA DYSPNEA R PLEURAL EFFUSION HYPOTENSION PLAN FRED HD TODAY UF TO DW AGREE WITH HOLD SOME BP MEDS USE RIGHT FEM THIGH GRAFT REMOVE HIS LEFT FEM TUNNELED HD REECE ANN MD Mar 21, 2020 15:35
--- NOTE | 2020-03-21 15:43 | EKG ---
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
--- NOTE | 2020-03-21 16:30 | NUR ---
Wound Care: Patient seen per wound care consult. There are no open wounds at this time. Patient coccyx and left heel are now closed. A foam is placed on the left heel for protection and calazime cream placed on coccyx. No other areas noted. Patient repositioned in bed and turned to back side. Patient is on a P-500 bed. Bed lowered and call light in reach. Wound care will reassess on 03/29/20 to make sure wounds remain closed.
--- NOTE | 2020-03-21 17:49 | PDOC ---
PULMONARY PROGRESS NOTES DATE: 03/21/20 TIME: 17:48 Vitals Vital Signs Date Time Temp Pulse Resp B/P (MAP) Pulse Ox O2 Delivery O2 Flow Rate FiO2 03/21/20 16:39 98 Room Air 03/21/20 11:00 97.8 59 18 84/24 (44) 97.8 General: Alert, No acute distress Lungs: Clear Cardiovascular: S1, S2 Abdomen: Soft, Other Extremities: Other Labs Laboratory Tests Test 03/20/20 08:15 03/21/20 10:50 White Blood Count 2.5 x10^3/uL (4.0-11.0) 3.0 x10^3/uL (4.0-11.0) Red Blood Count 2.86 x10^6/uL (3.50-5.40) 2.64 x10^6/uL (3.50-5.40) Hemoglobin 9.8 g/dL (12.0-15.5) 9.0 g/dL (12.0-15.5) Hematocrit 31.9 % (36.0-47.0) 29.1 % (36.0-47.0) Mean Corpuscular Volume 112 fL (79-100) 110 fL (79-100) Mean Corpuscular Hemoglobin 34 pg (25-35) 34 pg (25-35) Mean Corpuscular Hemoglobin Concent 31 g/dL (31-37) 31 g/dL (31-37) Red Cell Distribution Width 16.3 % (11.5-14.5) 15.8 % (11.5-14.5) Platelet Count 124 x10^3/uL (140-400) 120 x10^3/uL (140-400) Neutrophils (%) (Auto) 51 % (31-73) 57 % (31-73) Lymphocytes (%) (Auto) 33 % (24-48) 27 % (24-48) Monocytes (%) (Auto) 12 % (0-9) 10 % (0-9) Eosinophils (%) (Auto) 3 % (0-3) 3 % (0-3) Basophils (%) (Auto) 1 % (0-3) 2 % (0-3) Neutrophils # (Auto) 1.3 x10^3/uL (1.8-7.7) 1.7 x10^3/uL (1.8-7.7) Lymphocytes # (Auto) 0.8 x10^3/uL (1.0-4.8) 0.8 x10^3/uL (1.0-4.8) Monocytes # (Auto) 0.3 x10^3/uL (0.0-1.1) 0.3 x10^3/uL (0.0-1.1) Eosinophils # (Auto) 0.1 x10^3/uL (0.0-0.7) 0.1 x10^3/uL (0.0-0.7) Basophils # (Auto) 0.0 x10^3/uL (0.0-0.2) 0.1 x10^3/uL (0.0-0.2) Platelet Estimate Adequate (ADEQUATE) Hypochromasia Slight Poikilocytosis Slight Anisocytosis Mod Macrocytosis Mod Sodium Level 141 mmol/L (136-145) 138 mmol/L (136-145) Potassium Level 5.6 mmol/L (3.5-5.1) 5.8 mmol/L (3.5-5.1) Chloride Level 108 mmol/L (98-107) 106 mmol/L (98-107) Carbon Dioxide Level 23 mmol/L (21-32) 22 mmol/L (21-32) Anion Gap 10 (6-14) 10 (6-14) Blood Urea Nitrogen 46 mg/dL (7-20) 61 mg/dL (7-20) Creatinine 6.0 mg/dL (0.6-1.0) 7.2 mg/dL (0.6-1.0) Estimated GFR (Cockcroft-Gault) 8.2 6.7 Glucose Level 79 mg/dL (70-99) 118 mg/dL (70-99) Calcium Level 7.8 mg/dL (8.5-10.1) 7.3 mg/dL (8.5-10.1) Triglycerides Level 34 mg/dL (0-150) Cholesterol Level 142 mg/dL (0-200) LDL Cholesterol, Calculated 82 mg/dL (0-100) VLDL Cholesterol, Calculated 7 mg/dL (0-40) Non-HDL Cholesterol Calculated 89 mg/dL (0-129) HDL Cholesterol 53 mg/dL (40-60) Cholesterol/HDL Ratio 2.7 BUN/Creatinine Ratio 8 (6-20) Total Bilirubin 0.3 mg/dL (0.2-1.0) Aspartate Amino Transf (AST/SGOT) 29 U/L (15-37) Alanine Aminotransferase (ALT/SGPT) 19 U/L (14-59) Alkaline Phosphatase 266 U/L (46-116) Total Protein 6.1 g/dL (6.4-8.2) Albumin 2.8 g/dL (3.4-5.0) Albumin/Globulin Ratio 0.8 (1.0-1.7) Laboratory Tests Test 03/21/20 10:50 White Blood Count 3.0 x10^3/uL (4.0-11.0) Red Blood Count 2.64 x10^6/uL (3.50-5.40) Hemoglobin 9.0 g/dL (12.0-15.5) Hematocrit 29.1 % (36.0-47.0) Mean Corpuscular Volume 110 fL (79-100) Mean Corpuscular Hemoglobin 34 pg (25-35) Mean Corpuscular Hemoglobin Concent 31 g/dL (31-37) Red Cell Distribution Width 15.8 % (11.5-14.5) Platelet Count 120 x10^3/uL (140-400) Neutrophils (%) (Auto) 57 % (31-73) Lymphocytes (%) (Auto) 27 % (24-48) Monocytes (%) (Auto) 10 % (0-9) Eosinophils (%) (Auto) 3 % (0-3) Basophils (%) (Auto) 2 % (0-3) Neutrophils # (Auto) 1.7 x10^3/uL (1.8-7.7) Lymphocytes # (Auto) 0.8 x10^3/uL (1.0-4.8) Monocytes # (Auto) 0.3 x10^3/uL (0.0-1.1) Eosinophils # (Auto) 0.1 x10^3/uL (0.0-0.7) Basophils # (Auto) 0.1 x10^3/uL (0.0-0.2) Sodium Level 138 mmol/L (136-145) Potassium Level 5.8 mmol/L (3.5-5.1) Chloride Level 106 mmol/L (98-107) Carbon Dioxide Level 22 mmol/L (21-32) Anion Gap 10 (6-14) Blood Urea Nitrogen 61 mg/dL (7-20) Creatinine 7.2 mg/dL (0.6-1.0) Estimated GFR (Cockcroft-Gault) 6.7 BUN/Creatinine Ratio 8 (6-20) Glucose Level 118 mg/dL (70-99) Calcium Level 7.3 mg/dL (8.5-10.1) Total Bilirubin 0.3 mg/dL (0.2-1.0) Aspartate Amino Transf (AST/SGOT) 29 U/L (15-37) Alanine Aminotransferase (ALT/SGPT) 19 U/L (14-59) Alkaline Phosphatase 266 U/L (46-116) Total Protein 6.1 g/dL (6.4-8.2) Albumin 2.8 g/dL (3.4-5.0) Albumin/Globulin Ratio 0.8 (1.0-1.7) Medications Active Scripts Medications Dose Route/Sig Max Daily Dose Days Date Category Levothyroxine Sodium 75 Mcg Tablet 1 Tab PO DAILY 03/19/20 Reported [place] 5-325 Tablet (Acetaminophen/Hydrocodone Bitart) 1 Each Tablet 1 Tab PO PRN Q6HRS PRN 03/13/20 Rx Catapres (Clonidine Hcl) 0.1 Mg Tablet 0.1 Mg PO PRN Q6HRS PRN 30 04/23/19 Rx Topamax (Topiramate) 25 Mg Tablet 25 Mg PO DAILY 30 04/23/19 Rx Polyethylene Glycol 3350 17 Gm Powd.pack 17 Gm PO PRN DAILY PRN 30 04/23/19 Rx Gabapentin 300 Mg Capsule 300 Mg PO QHS 30 01/25/19 Rx Fluticasone Propionate Nasal [place] (Fluticasone Propionate) 16 Gm [place].susp 2 [place] NS DAILY 05/06/17 Reported Renvela (Sevelamer Carbonate) 800 Mg Tablet 800 Mg PO TIDWMEALS 05/06/17 Reported Vitamin D3 (Cholecalciferol (Vitamin D3)) 2,000 Unit Tab.chew 1,000 Unit PO 05/06/17 Reported Ventolin Hfa Inhaler (Albuterol Sulfate) 18 Gm Hfa.aer.ad 2 Puff INH BID 05/06/17 Reported Amlodipine Besylate 5 Mg Tablet 5 Mg PO DAILY 05/06/17 Reported Nephro-Donovan Tablet (Folic Acid/Vitamin B Comp W-C) 0.8 Mg Tablet 0.8 Mg PO DAILY 12/20/16 Reported Low Dose Aspirin Ec (Aspirin) 81 Mg Tablet. 1 Tab PO DAILY 03/09/14 Reported Impression . Full consult dictated, thoracentesis not warranted pleural effusion on the right is very small RANDALL SNIDER MD Mar 21, 2020 17:49
--- NOTE | 2020-03-21 18:08 | CONS ---
DATE OF CONSULTATION: 03/21/2020 ATTENDING PHYSICIAN: Alex Valles MD REASON FOR CONSULTATION: The patient is seen in pulmonary consultation at the request of Dr. Dias for abnormal x-ray. HISTORY OF PRESENT ILLNESS: The patient is a 74-year-old female with comorbidities of end-stage renal disease on hemodialysis, cardiomyopathy, hypothyroidism, previous pleural effusion, undergoing thoracentesis, presented to the Emergency Room with complaints of shortness of breath, abdominal discomfort and some swelling of her chest underneath her left breast. She denies missing dialysis. She was admitted. Part of her workup included a chest x-ray. I personally reviewed the x-ray, there is slight increase in pleural fluid on the right, not enough to warrant a thoracentesis. The patient was seen in consultation for further evaluation and management. PAST MEDICAL HISTORY: She has had previous hypercapnic respiratory failure, previous thoracentesis was performed back in 04/2019. At that time, she had 1 liter of fluid removed. It was related to a transudative process. She is status post incisional hernia repair. She has a history of COPD, morbid obesity, tobacco dependence in remission, history of colon cancer. SOCIAL HISTORY: She quit tobacco many years ago. She does not smoke now. PAST SURGICAL HISTORY: Hysterectomy, tonsillectomy, previous thoracentesis. FAMILY HISTORY: Hypertension and kidney disease. REVIEW OF SYSTEMS: As indicated above, otherwise, a 10-point system was reviewed and negative. PHYSICAL EXAMINATION: GENERAL: Morbid obese individual in no respiratory distress. VITAL SIGNS: Currently on room air. HEENT: Eyes, the sclerae were nonicteric. NECK: Jugular venous distention was not elevated. No lymphadenopathy. CHEST: Full expansion. LUNGS: Adequate air flow, no wheezes. CARDIOVASCULAR: Regular rate and rhythm with S1, S2, no S3. ABDOMEN: Soft, nontender, nondistended. ABDOMEN: Obese. EXTREMITIES: Marked edema. NEUROLOGICAL: The patient was awake, alert, following commands. A detailed neuro exam was not performed. LABORATORY DATA: White count was low at 3.0, hemoglobin and hematocrit were noted. Electrolytes were noted. BUN and creatinine elevated. INR was 1.3. RADIOLOGICAL DATA: Chest x-ray as indicated above. IMPRESSION: 1. Abnormal chest x-ray with mild right sided pleural effusion, not enough to warrant a thoracentesis. 2. Acute respiratory insufficiency, multifactorial secondary to morbid obesity, deconditioning, chronic diastolic heart failure, pulmonary hypertension. 3. End-stage renal disease. 4. Malnutrition. 5. Anemia. 6. Hypotension. PLAN: From a respiratory standpoint of view, pleural effusion is too small to warrant a thoracentesis. I recommend continue hemodialysis per Nephrology. No further workup needed. I do appreciate the privilege in sharing in the patient's care. RANDALL SNIDER MD DR: SANJU/jen JOB#: [id number] / [id number]
[2020-03-21 20:00] VITALS: BP 100/60
[2020-03-21] MEDS ORDERED: DARBEPOETIN ALFA 60 MCG/0.3 ML DISP.SYRIN. SQ SCH (21:00)
[2020-03-21] MEDS: GABAPENTIN 300 MG CAPSULE. PO SCH (21:04)
[2020-03-21 23:30] VITALS: BP 105/37
[2020-03-22] VITALS (7 sets, daily range): BP systolic 66–129; BP diastolic 22–98
[2020-03-22 05:13] LABS: GFR 10.2; POTASSIUM 4.8 mmol/L (3.5-5.1)
[2020-03-22] MEDS: LEVOTHYROXINE 75 MCG TABLET PO SCH (06:00)
[2020-03-22] MEDS: ALBUTEROL SULFATE 2.5 MG/3 ML NEBU. NEB SCH ×4 (07:23→19:55)
[2020-03-22] MEDS: SEVELAMER CARBONATE 800 MG TABLET. PO SCH ×3 (08:00→17:13)
[2020-03-22] MEDS ORDERED: LIDOCAINE 1%/EPI 1:100,000 20 ML VIAL. ONE (08:38)
[2020-03-22] MEDS ORDERED: MIDAZOLAM HCL/PF 2 MG/2 ML VIAL. ONE (08:42)
[2020-03-22] MEDS ORDERED: fentaNYL PF VIAL 100 MCG/2 ML VIAL ONE (08:42)
--- NOTE | 2020-03-22 08:43 | PDOC ---
PULMONARY PROGRESS NOTES DATE: 03/22/20 TIME: 08:43 Subjective Patient not more short of air Vitals Vital Signs Date Time Temp Pulse Resp B/P (MAP) Pulse Ox O2 Delivery O2 Flow Rate FiO2 03/22/20 07:23 97 Room Air 03/22/20 07:00 97.7 59 18 129/37 (67) 97.7 ROS: No Nausea, No Chest Pain, No Abdominal Pain, No Increase Cough General: Alert, No acute distress Lungs: Clear Cardiovascular: S1, S2 Abdomen: Soft, Other Neuro Exam: Alert Extremities: Other Skin: Warm Labs Laboratory Tests Test 03/21/20 10:50 03/22/20 04:05 White Blood Count 3.0 x10^3/uL (4.0-11.0) Red Blood Count 2.64 x10^6/uL (3.50-5.40) Hemoglobin 9.0 g/dL (12.0-15.5) Hematocrit 29.1 % (36.0-47.0) Mean Corpuscular Volume 110 fL (79-100) Mean Corpuscular Hemoglobin 34 pg (25-35) Mean Corpuscular Hemoglobin Concent 31 g/dL (31-37) Red Cell Distribution Width 15.8 % (11.5-14.5) Platelet Count 120 x10^3/uL (140-400) Neutrophils (%) (Auto) 57 % (31-73) Lymphocytes (%) (Auto) 27 % (24-48) Monocytes (%) (Auto) 10 % (0-9) Eosinophils (%) (Auto) 3 % (0-3) Basophils (%) (Auto) 2 % (0-3) Neutrophils # (Auto) 1.7 x10^3/uL (1.8-7.7) Lymphocytes # (Auto) 0.8 x10^3/uL (1.0-4.8) Monocytes # (Auto) 0.3 x10^3/uL (0.0-1.1) Eosinophils # (Auto) 0.1 x10^3/uL (0.0-0.7) Basophils # (Auto) 0.1 x10^3/uL (0.0-0.2) Sodium Level 138 mmol/L (136-145) 137 mmol/L (136-145) Potassium Level 5.8 mmol/L (3.5-5.1) 4.8 mmol/L (3.5-5.1) Chloride Level 106 mmol/L (98-107) 102 mmol/L (98-107) Carbon Dioxide Level 22 mmol/L (21-32) 23 mmol/L (21-32) Anion Gap 10 (6-14) 12 (6-14) Blood Urea Nitrogen 61 mg/dL (7-20) 39 mg/dL (7-20) Creatinine 7.2 mg/dL (0.6-1.0) 5.0 mg/dL (0.6-1.0) Estimated GFR (Cockcroft-Gault) 6.7 10.2 BUN/Creatinine Ratio 8 (6-20) Glucose Level 118 mg/dL (70-99) 116 mg/dL (70-99) Calcium Level 7.3 mg/dL (8.5-10.1) 8.0 mg/dL (8.5-10.1) Total Bilirubin 0.3 mg/dL (0.2-1.0) Aspartate Amino Transf (AST/SGOT) 29 U/L (15-37) Alanine Aminotransferase (ALT/SGPT) 19 U/L (14-59) Alkaline Phosphatase 266 U/L (46-116) Total Protein 6.1 g/dL (6.4-8.2) Albumin 2.8 g/dL (3.4-5.0) Albumin/Globulin Ratio 0.8 (1.0-1.7) Laboratory Tests Test 03/21/20 10:50 03/22/20 04:05 White Blood Count 3.0 x10^3/uL (4.0-11.0) Red Blood Count 2.64 x10^6/uL (3.50-5.40) Hemoglobin 9.0 g/dL (12.0-15.5) Hematocrit 29.1 % (36.0-47.0) Mean Corpuscular Volume 110 fL (79-100) Mean Corpuscular Hemoglobin 34 pg (25-35) Mean Corpuscular Hemoglobin Concent 31 g/dL (31-37) Red Cell Distribution Width 15.8 % (11.5-14.5) Platelet Count 120 x10^3/uL (140-400) Neutrophils (%) (Auto) 57 % (31-73) Lymphocytes (%) (Auto) 27 % (24-48) Monocytes (%) (Auto) 10 % (0-9) Eosinophils (%) (Auto) 3 % (0-3) Basophils (%) (Auto) 2 % (0-3) Neutrophils # (Auto) 1.7 x10^3/uL (1.8-7.7) Lymphocytes # (Auto) 0.8 x10^3/uL (1.0-4.8) Monocytes # (Auto) 0.3 x10^3/uL (0.0-1.1) Eosinophils # (Auto) 0.1 x10^3/uL (0.0-0.7) Basophils # (Auto) 0.1 x10^3/uL (0.0-0.2) Sodium Level 138 mmol/L (136-145) 137 mmol/L (136-145) Potassium Level 5.8 mmol/L (3.5-5.1) 4.8 mmol/L (3.5-5.1) Chloride Level 106 mmol/L (98-107) 102 mmol/L (98-107) Carbon Dioxide Level 22 mmol/L (21-32) 23 mmol/L (21-32) Anion Gap 10 (6-14) 12 (6-14) Blood Urea Nitrogen 61 mg/dL (7-20) 39 mg/dL (7-20) Creatinine 7.2 mg/dL (0.6-1.0) 5.0 mg/dL (0.6-1.0) Estimated GFR (Cockcroft-Gault) 6.7 10.2 BUN/Creatinine Ratio 8 (6-20) Glucose Level 118 mg/dL (70-99) 116 mg/dL (70-99) Calcium Level 7.3 mg/dL (8.5-10.1) 8.0 mg/dL (8.5-10.1) Total Bilirubin 0.3 mg/dL (0.2-1.0) Aspartate Amino Transf (AST/SGOT) 29 U/L (15-37) Alanine Aminotransferase (ALT/SGPT) 19 U/L (14-59) Alkaline Phosphatase 266 U/L (46-116) Total Protein 6.1 g/dL (6.4-8.2) Albumin 2.8 g/dL (3.4-5.0) Albumin/Globulin Ratio 0.8 (1.0-1.7) Medications Active Scripts Medications Dose Route/Sig Max Daily Dose Days Date Category Levothyroxine Sodium 75 Mcg Tablet 1 Tab PO DAILY 03/19/20 Reported [place] 5-325 Tablet (Acetaminophen/Hydrocodone Bitart) 1 Each Tablet 1 Tab PO PRN Q6HRS PRN 03/13/20 Rx Catapres (Clonidine Hcl) 0.1 Mg Tablet 0.1 Mg PO PRN Q6HRS PRN 30 04/23/19 Rx Topamax (Topiramate) 25 Mg Tablet 25 Mg PO DAILY 30 04/23/19 Rx Polyethylene Glycol 3350 17 Gm Powd.pack 17 Gm PO PRN DAILY PRN 30 04/23/19 Rx Gabapentin 300 Mg Capsule 300 Mg PO QHS 30 01/25/19 Rx Fluticasone Propionate Nasal [place] (Fluticasone Propionate) 16 Gm [place].susp 2 [place] NS DAILY 05/06/17 Reported Renvela (Sevelamer Carbonate) 800 Mg Tablet 800 Mg PO TIDWMEALS 05/06/17 Reported Vitamin D3 (Cholecalciferol (Vitamin D3)) 2,000 Unit Tab.chew 1,000 Unit PO 05/06/17 Reported Ventolin Hfa Inhaler (Albuterol Sulfate) 18 Gm Hfa.aer.ad 2 Puff INH BID 05/06/17 Reported Amlodipine Besylate 5 Mg Tablet 5 Mg PO DAILY 05/06/17 Reported Nephro-Donovan Tablet (Folic Acid/Vitamin B Comp W-C) 0.8 Mg Tablet 0.8 Mg PO DAILY 12/20/16 Reported Low Dose Aspirin Ec (Aspirin) 81 Mg Tablet.dr 1 Tab PO DAILY 03/09/14 Reported Impression . IMPRESSION: 1. Abnormal chest x-ray with mild right sided pleural effusion, not enough to warrant a thoracentesis. 2. Acute respiratory insufficiency, multifactorial secondary to morbid obesity, deconditioning, chronic diastolic heart failure, pulmonary hypertension. 3. End-stage renal disease. 4. Malnutrition. 5. Anemia. 6. Hypotension. Plan . I will sign off call if needed : From a respiratory standpoint of view, pleural effusion is too small to warrant a thoracentesis. I recommend continue hemodialysis per Nephrology. No further workup needed. I do appreciate the privilege in sharing in the patient's care. RANDALL SNIDER MD Mar 22, 2020 08:43
[2020-03-22] MEDS: HEPARIN for SUB-Q USE 5,000 UNIT/ML VIAL. SQ SCH ×2 (09:00→20:42)
[2020-03-22] MEDS: DOCUSATE SODIUM 100 MG CAPSULE. PO SCH ×2 (09:00→20:35)
[2020-03-22] MEDS ORDERED: LIDOCAINE 1%/EPI 1:100,000 20 ML VIAL. INJ ONE (09:00)
[2020-03-22] MEDS ORDERED: fentaNYL PF VIAL 100 MCG/2 ML VIAL IV ONE (09:00)
--- NOTE | 2020-03-22 09:15 | PDOC ---
BRIEF OPERATIVE NOTE Pre-Op Diagnosis CRF Post-Op Diagnosis same Procedure Performed Tunnelled HD removal Surgeon Manuel Anesthesia Type: Local Findings left groin tunnelled HD catheter removal Complications No immediate MENG RAMOS MD Mar 22, 2020 09:15
--- NOTE | 2020-03-22 11:01 | NUR ---
Patient underwent removal of dialysis catheter in her left groin this morning. She came back to the unit at 0940, VSS, awake, alert, oriented x 4. Dressing on her left groin is clean, dry, and intact.
[2020-03-22] MEDS: TOPIRAMATE 25 MG TABLET. PO SCH (11:52)
[2020-03-22] MEDS: ASPIRIN ENTERIC COATED 81 MG TABLET.DR. PO SCH (11:52)
[2020-03-22 12:19] LABS: BASO % 1 % (0-3); EOS # 0.1 x10^3/uL (0.0-0.7); EOS % 2 % (0-3); HEMATOCRIT 34.1 % (36.0-47.0); HEMOGLOBIN 10.7 g/dL (12.0-15.5); LYMPH # 0.8 x10^3/uL (1.0-4.8); LYMPH % 28 % (24-48); MEAN CORPUSCULAR HEMOGLOBIN 34 pg (25-35); MEAN CORPUSCULAR HGB CONC 31 g/dL (31-37); MEAN CORPUSCULAR VOLUME 108 fL (79-100); MONO # 0.3 x10^3/uL (0.0-1.1); MONO % 11 % (0-9); NEUT # 1.7 x10^3/uL (1.8-7.7); NEUT % 58 % (31-73); PLATELET COUNT 115 x10^3/uL (140-400); RED BLOOD COUNT 3.15 x10^6/uL (3.50-5.40); RED CELL DISTRIBUTION WIDTH 15.9 % (11.5-14.5); WHITE BLOOD COUNT 2.8 x10^3/uL (4.0-11.0)
--- NOTE | 2020-03-22 13:47 | PDOC ---
[facility] PROGRESS NOTE Date of Service DOS: DATE: 03/22/20 TIME: 13:46 Chief Complaint Chief Complaint Right pleural effusion Shortness of breath Volume overload ESRD on HD Malnutrition Generalized abdominal pain PUI for COVID-19 before transfer to SNF Plan: Consult to Nephrology for hemodialysis, renal diet. CT abdomen (03/13/20) showed extensive calcific atherosclerosis concerning for possible ischemic bowel. Permissive hypertension with goal BP 150/90 mmHg. Hold amlodipine due to borderline hypotension (105/29). Obtain Echocardiogram. Stool occult blood pending. PT/OT. VTE prophylaxis. Full Code. Appreciate pulmonary recommendationsno thoracentesis at this time we will shun nue with hemodialysis Pending COVID testing Heparin for DVT prophylaxis MPOA not designated at this time History of Present Illness History of Present Illness 74 yo female with with PMHx ESRD on HD, who presents to the ER with complaint of shortness of breath and abdominal pain for the past week. She denies missing any episodes of dialysis, and states her shortness of breath is worse with exertion. She reports upper abdominal pain, 6/10. Patient was seen in the ER one week ago for similar complaints. She also notes that she is too weak to go home and is largely bedbound. She denies fever, chills, nausea, or vomiting. 03/20/2020 No acute events overnight. Patient continues to complain of right-sided discomfort and shortness of breath. Patient states she was part of the hospital mainly because while her sister was helping her get up out of bed she became very short of breath. Patient endorsed that she has been treated for pleural effusion in the past a couple years ago and she had a thoracentesis as well. For this reason I will consult pulmonology for possible thoracentesis. Likely her dialysis will not be able to diurese her pleural effusion. Patient was seen and examined bedside. Patient's chart, labs, images were reviewed and discussed with RN 03/21/2020 No acute events overnight. Patient seen and examined bedside. In route to hemodialysis this morning. Patient's chart, labs, images were reviewed and discussed with RN 03/22/2020 No acute events overnight. Patient breathing status has improved. Does complain of slight musculoskeletal tenderness in her right side abdominal area. She says that she usually lies on her right side and this may be contributing to her pain. Patient's chart, labs, images were reviewed and discussed with RN Vitals/I&O Vitals/I&O: Vital Signs Date Time Temp Pulse Resp B/P (MAP) Pulse Ox O2 Delivery O2 Flow Rate FiO2 03/22/20 11:27 97 Room Air 03/22/20 11:00 97.8 69 18 105/39 (61) 97.8 I & O 03/21/20 03/21/20 03/22/20 15:00 23:00 07:00 Intake Total 360 ml Output Total 0 ml Balance 360 ml Physical Exam Physical Exam: GEN: No apparent distress. Alert and oriented HEENT: Normal cephalic, atraumatic, external auditory canals are patent NECK: Supple, no JVD, no thyromegaly was noted LUNGS: Bilateral bibasilar crackles HEART: RRR, S1, S2 present. Peripheral pulses intact, no obvious murmurs noted ABDOMEN: Obese, soft, nontender. Positive bowel sounds, no organomegaly, normal bowel sounds EXTREMITIES: +1 pedal edema General: Alert, Oriented X3, Cooperative, mild distress Lungs: Clear Abdomen: Normal bowel sounds, No masses, Other (Obese abdomen) Extremities: No clubbing, No cyanosis, Other (+1 pitting edema to bilateral lower extremities) Skin: No rashes, No significant lesion Labs Labs: Laboratory Tests Test 03/22/20 04:05 03/22/20 12:05 Sodium Level 137 mmol/L (136-145) Potassium Level 4.8 mmol/L (3.5-5.1) Chloride Level 102 mmol/L (98-107) Carbon Dioxide Level 23 mmol/L (21-32) Anion Gap 12 (6-14) Blood Urea Nitrogen 39 mg/dL (7-20) Creatinine 5.0 mg/dL (0.6-1.0) Estimated GFR (Cockcroft-Gault) 10.2 Glucose Level 116 mg/dL (70-99) Calcium Level 8.0 mg/dL (8.5-10.1) White Blood Count 2.8 x10^3/uL (4.0-11.0) Red Blood Count 3.15 x10^6/uL (3.50-5.40) Hemoglobin 10.7 g/dL (12.0-15.5) Hematocrit 34.1 % (36.0-47.0) Mean Corpuscular Volume 108 fL (79-100) Mean Corpuscular Hemoglobin 34 pg (25-35) Mean Corpuscular Hemoglobin Concent 31 g/dL (31-37) Red Cell Distribution Width 15.9 % (11.5-14.5) Platelet Count 115 x10^3/uL (140-400) Neutrophils (%) (Auto) 58 % (31-73) Lymphocytes (%) (Auto) 28 % (24-48) Monocytes (%) (Auto) 11 % (0-9) Eosinophils (%) (Auto) 2 % (0-3) Basophils (%) (Auto) 1 % (0-3) Neutrophils # (Auto) 1.7 x10^3/uL (1.8-7.7) Lymphocytes # (Auto) 0.8 x10^3/uL (1.0-4.8) Monocytes # (Auto) 0.3 x10^3/uL (0.0-1.1) Eosinophils # (Auto) 0.1 x10^3/uL (0.0-0.7) Basophils # (Auto) 0.0 x10^3/uL (0.0-0.2) Assessment and Plan Assessmemt and Plan Problems Medical Problems: (1) Abdominal pain Status: Acute (2) ESRD (end stage renal disease) on dialysis Status: Acute (3) Shortness of breath Status: Acute Comment Review of Relevant I have reviewed the following items gloria (where applicable) has been applied. Medications: Current Medications Medications (Trade) Dose Ordered Sig/Ken[place] Route PRN Reason Start Time Stop Time Status Last Admin Dose Admin Darbepoetin Andriy (ARANESP for DIALYSIS PTS) 60 mcg WEEKLYHS SQ 03/21/20 21:00 03/21/20 21:08 Fentanyl Citrate (Fentanyl 2ml Vial) 100 mcg 1X ONCE IV 03/22/20 09:00 03/22/20 09:04 DC 03/22/20 09:00 Lidocaine/ Epinephrine (LIDOCAINE 1%-EPI 1:100,000 Multi-Dose) 20 ml 1X ONCE INJ 03/22/20 09:00 03/22/20 09:04 DC 03/22/20 09:00 Justifications for Admission Other Justification GILBERT SUNG MD Mar 22, 2020 13:47
--- NOTE | 2020-03-22 14:23 | PDOC ---
Renal-Progress Notes Subjective Notes Notes NO NEW COMPLAINTS History of Present Illness Hx of present illness STABLE Vitals Vitals Vital Signs Date Time Temp Pulse Resp B/P (MAP) Pulse Ox O2 Delivery O2 Flow Rate FiO2 03/22/20 11:27 97 Room Air 03/22/20 11:00 97.8 69 18 105/39 (61) 97.8 Weight Weight [ ] I.O. Intake and Output Intake and Output 03/22/20 07:00 Intake Total 360 ml Output Total 0 ml Balance 360 ml Intake Oral 360 ml Output Urine Total 0 ml # Bowel Movements 2 Labs Labs Laboratory Tests Test 03/22/20 04:05 03/22/20 12:05 Sodium Level 137 mmol/L (136-145) Potassium Level 4.8 mmol/L (3.5-5.1) Chloride Level 102 mmol/L (98-107) Carbon Dioxide Level 23 mmol/L (21-32) Anion Gap 12 (6-14) Blood Urea Nitrogen 39 mg/dL (7-20) Creatinine 5.0 mg/dL (0.6-1.0) Estimated GFR (Cockcroft-Gault) 10.2 Glucose Level 116 mg/dL (70-99) Calcium Level 8.0 mg/dL (8.5-10.1) White Blood Count 2.8 x10^3/uL (4.0-11.0) Red Blood Count 3.15 x10^6/uL (3.50-5.40) Hemoglobin 10.7 g/dL (12.0-15.5) Hematocrit 34.1 % (36.0-47.0) Mean Corpuscular Volume 108 fL (79-100) Mean Corpuscular Hemoglobin 34 pg (25-35) Mean Corpuscular Hemoglobin Concent 31 g/dL (31-37) Red Cell Distribution Width 15.9 % (11.5-14.5) Platelet Count 115 x10^3/uL (140-400) Neutrophils (%) (Auto) 58 % (31-73) Lymphocytes (%) (Auto) 28 % (24-48) Monocytes (%) (Auto) 11 % (0-9) Eosinophils (%) (Auto) 2 % (0-3) Basophils (%) (Auto) 1 % (0-3) Neutrophils # (Auto) 1.7 x10^3/uL (1.8-7.7) Lymphocytes # (Auto) 0.8 x10^3/uL (1.0-4.8) Monocytes # (Auto) 0.3 x10^3/uL (0.0-1.1) Eosinophils # (Auto) 0.1 x10^3/uL (0.0-0.7) Basophils # (Auto) 0.0 x10^3/uL (0.0-0.2) Review of Systems Constitutional: yes: alert, oriented Ears/Nose/Throat: Yes: no symptom reported Eyes: Yes: no symptom reported Pulmonary: Yes no symptom reported Cardiovascular: Yes no symptom reported Gastrointestional: Yes: no symptom reported Genitourinary: Yes: no symptom reported Musculoskeletal: Yes: no symptom reported Skin: Yes no symptom reported Psychiatric/Neurological: Yes: no symptom reported Endocrine: Yes: no symptom reported Physical Exam General Appearance: no apparent distress Skin: warm Respiratory: bilateral CTA, decreased breath sounds Heart: S1S2 Abdomen: soft, bowel sounds present Genitourinary: bladder flat Extremities: pulses present Neurology: alert, oriented Musculoskeletal: Osteoarthritis Assessment Assessment IMP ESRD ANEMIA DYSPNEA R PLEURAL EFFUSION HYPOTENSION PLAN FRED HD TOMORROW USE RIGHT FEM THIGH GRAFT LEFT FEM TUNNELED HD CATH OUT REECE ANN MD Mar 22, 2020 14:22
[2020-03-22] MEDS: LIDOCAINE (700MG/PATCH) PATCH. TD SCH (15:11)
[2020-03-22] MEDS: HYDROcodone/APAP 5/325MG 1 TAB TABLET PO PRN ×2 (15:13→21:17)
--- NOTE | 2020-03-22 16:31 | RAD ---
Procedure: Tunneled hemodialysis catheter removal Clinical Indication: Adult female no longer requiring left groin tunneled hemodialysis catheter Sedation: Local anesthesia only Antibiotics: None Exposure: Fluoro Time: 0.4 minutes Images: 1 Contrast: None Sterility: All elements of maximal sterile barrier technique including the use of a cap, mask, sterile gown, sterile gloves, large sterile sheet, appropriate hand hygiene, and 2% chlorhexidine for cutaneous antisepsis (or acceptable alternative antiseptic per current guidelines) were followed for this procedure. Consent: The procedure was explained in its entirety to the patient or the patients designated customer care representative by a member of the treatment team, including a discussion of the risks, benefits and commonly accepted alternatives to the procedure, as well as the expected consequences of no therapy whatsoever. Discussion of the risks included, but was not limited to, those that are most frequent and those that are rare but possibly severe or life-threatening, as well as the possibility of unforeseen complications. Technique and Findings: Following informed consent, the patient was prepped and draped in usual sterile sterile fashion. 1% lidocaine was used to achieve local anesthesia around the existing left groin hemodialysis catheter. Blunt dissection techniques were then used to free the cuff. The catheter was then removed and hemostasis was used to achieve manual compression. Fluoroscopic spot view is obtained demonstrating no residual radiopaque foreign body. Complications: No immediate Impression: 1. Fluoroscopic guided removal of a left tunneled groin hemodialysis catheter as described.
--- NOTE | 2020-03-22 16:58 | NUR ---
This nurse was told by Surgery RN that her IV located in her left EJ doesn't work. IV repositioned and dressing changed; IV access patent.
[2020-03-22] MEDS: GABAPENTIN 300 MG CAPSULE. PO SCH (20:35)
[2020-03-22] MEDS ORDERED: PATCH REMOVAL. MC SCH (21:00)
[2020-03-23 03:00] VITALS: BP 111/42
[2020-03-23] MEDS: LEVOTHYROXINE 75 MCG TABLET PO SCH (06:11)
[2020-03-23] MEDS: HYDROcodone/APAP 5/325MG 1 TAB TABLET PO PRN ×2 (06:13→16:08)
[2020-03-23 07:05] VITALS: BP 94/30
[2020-03-23] MEDS: ALBUTEROL SULFATE 2.5 MG/3 ML NEBU. NEB SCH ×3 (07:54→15:41)
[2020-03-23] MEDS ORDERED: MULTIVITAMIN with MINERAL TABLET. PO SCH (09:00)
[2020-03-23] MEDS ORDERED: ASCORBIC ACID 500 MG TABLET PO SCH (09:00)
[2020-03-23] MEDS: ASPIRIN ENTERIC COATED 81 MG TABLET.DR. PO SCH (09:39)
[2020-03-23] MEDS: DOCUSATE SODIUM 100 MG CAPSULE. PO SCH (09:39)
[2020-03-23] MEDS: SEVELAMER CARBONATE 800 MG TABLET. PO SCH ×2 (09:39→12:00)
[2020-03-23] MEDS: LIDOCAINE (700MG/PATCH) PATCH. TD SCH (09:40)
[2020-03-23] MEDS: TOPIRAMATE 25 MG TABLET. PO SCH (09:40)
--- NOTE | 2020-03-23 09:48 | CARD ---
MR#: [id number] Date of Study: 03/23/2020 Ordering Physician: ZAFAR CABRERA, Referring Physician: ZAFAR CABRERA Tech: Candy Bello RDCS APPROVED REPORT EXAM: Two-dimensional and M-mode echocardiogram with Doppler and color Doppler. Other Information Quality : Fair Technically limited study due to body habitus. INDICATION Peripheral Edema 2D DIMENSIONS Left Atrium(2D)4.5 (1.6-4.0cm)IVSd0.9 (0.7-1.1cm) Aortic Root(2D)2.8 (2.0-3.7cm)LVDd5.0 (3.9-5.9cm) LVOT Diameter2.0 (1.8-2.4cm)PWd0.9 (0.7-1.1cm) LVDs3.2 (2.5-4.0cm)FS (%) 35.2 % SV75.5 mlLVEF(%)60.0 (>50%) Aortic Valve AoV Peak David.152.0cm/sAoV VTI37.5cm AO Peak GR.9.2mmHgLVOT VTI 35.94cm AO Mean GR.5mmHgAVA (VTI)3.10cm2 Mitral Valve MV E Fquxvpmb955.6cm/sMV DECEL [id number] MV A Fjlzqjnf48.7cm/sE/A Ratio1.6 Tricuspid Valve TR P. Yhuexbgb825ih/sRAP QIBPKKBB84zvCd TR Peak Gr.02naOpRTSP23erRz LEFT VENTRICLE The left ventricle is normal size. There is normal left ventricular wall thickness. The left ventricu lar systolic function is normal and the ejection fraction is within normal range. The Ejection Fracti on is 55-60%. Septal motion consistent with conduction abnormality. Otherwise, grossly normal wall mo tion. Transmitral Doppler flow pattern is Grade II-pseudonormal filling dynamics. RIGHT VENTRICLE The right ventricle is moderately dilated. The right ventricular systolic function is normal. ATRIA The left atrium is mildly dilated. The right atrium is mildly dilated. The interatrial septum is inta ct with no evidence for an atrial septal defect or patent foramen ovale as noted on 2-D or Doppler im aging. AORTIC VALVE The aortic valve is calcified and not well visualized. Doppler and Color Flow revealed no significant aortic regurgitation. There is no significant aortic valvular stenosis. MITRAL VALVE The mitral valve is calcified but opens well. Posterior mitral annular calcification is mild to moder ate. There is no evidence of mitral valve prolapse. There is no mitral valve stenosis. Doppler and Co deuce-flow revealed trace mitral regurgitation. TRICUSPID VALVE Not well visualized. Doppler and Color Flow revealed trace tricuspid regurgitation. There is severe p ulmonary hypertension. The PA pressure was estimated at 70 mmHg. There is no tricuspid valve stenosis . PULMONIC VALVE The pulmonic valve is not well visualized. Doppler and Color Flow revealed no pulmonic valvular regur gitation. There is no pulmonic valvular stenosis. GREAT VESSELS The aortic root is normal in size. The ascending aorta is not well seen. The IVC is dilated and colla pses <50% with inspiration. PERICARDIAL EFFUSION There is no evidence of significant pericardial effusion. Critical Notification Critical Value: No <Conclusion> The left ventricular systolic function is normal and the ejection fraction is within normal range. Th e Ejection Fraction is 55-60%. Septal motion consistent with conduction abnormality. Otherwise, grossly normal wall motion. D-shaped septum suggestive of increased RV pressure. The right ventricle is moderately dilated. Doppler and Color Flow revealed trace tricuspid regurgitation. There is severe pulmonary hypertension . The PA pressure was estimated at 70 mmHg. Signed by : Praveen Hall, Electronically Approved : 03/23/2020 09:48:05
[2020-03-23] MEDS ORDERED: IV NORMAL SALINE 1000ML BAG 1,000 ML IV PRN ×2 (09:57)
[2020-03-23] MEDS: HEPARIN for SUB-Q USE 5,000 UNIT/ML VIAL. SQ SCH (09:59)
[2020-03-23] MEDS ORDERED: ACETAMINOPHEN 500 MG TABLET PO PRN (10:00)
[2020-03-23] MEDS ORDERED: DIALYSIS PATIENT. MC PRN (10:00)
[2020-03-23] MEDS ORDERED: ALBUMIN HUMAN 25% 200 ML IV PRN (10:00)
[2020-03-23] MEDS ORDERED: diphenhydrAMINE 50 MG/ML VIAL IV PRN ×2 (10:00)
[2020-03-23 10:52] LABS: BASO % 1 % (0-3); EOS % 2 % (0-3); HEMATOCRIT 29.5 % (36.0-47.0); HEMOGLOBIN 9.6 g/dL (12.0-15.5); LYMPH # 0.8 x10^3/uL (1.0-4.8); LYMPH % 29 % (24-48); MEAN CORPUSCULAR HEMOGLOBIN 35 pg (25-35); MEAN CORPUSCULAR HGB CONC 32 g/dL (31-37); MEAN CORPUSCULAR VOLUME 107 fL (79-100); MONO # 0.2 x10^3/uL (0.0-1.1); MONO % 8 % (0-9); NEUT # 1.6 x10^3/uL (1.8-7.7); NEUT % 60 % (31-73); PLATELET COUNT 114 x10^3/uL (140-400); RED BLOOD COUNT 2.76 x10^6/uL (3.50-5.40); RED CELL DISTRIBUTION WIDTH 15.5 % (11.5-14.5); WHITE BLOOD COUNT 2.7 x10^3/uL (4.0-11.0)
[2020-03-23 11:09] LABS: CREATININE 5.9 mg/dL (0.6-1.0); GFR 8.4; POTASSIUM 4.9 mmol/L (3.5-5.1)
--- NOTE | 2020-03-23 11:45 | PDOC ---
Renal-Progress Notes Subjective Notes Notes NO NEW COMPLAINTS History of Present Illness Hx of present illness STABLE Vitals Vitals Vital Signs Date Time Temp Pulse Resp B/P (MAP) Pulse Ox O2 Delivery O2 Flow Rate FiO2 03/23/20 07:54 98 Room Air 03/23/20 07:05 98.2 60 19 94/30 (51) 98.2 Weight Weight [ ] I.O. Intake and Output Intake and Output 03/23/20 07:00 Intake Total 960 ml Balance 960 ml Intake Oral 960 ml Labs Labs Laboratory Tests Test 03/22/20 12:05 03/23/20 10:43 White Blood Count 2.8 x10^3/uL (4.0-11.0) 2.7 x10^3/uL (4.0-11.0) Red Blood Count 3.15 x10^6/uL (3.50-5.40) 2.76 x10^6/uL (3.50-5.40) Hemoglobin 10.7 g/dL (12.0-15.5) 9.6 g/dL (12.0-15.5) Hematocrit 34.1 % (36.0-47.0) 29.5 % (36.0-47.0) Mean Corpuscular Volume 108 fL (79-100) 107 fL (79-100) Mean Corpuscular Hemoglobin 34 pg (25-35) 35 pg (25-35) Mean Corpuscular Hemoglobin Concent 31 g/dL (31-37) 32 g/dL (31-37) Red Cell Distribution Width 15.9 % (11.5-14.5) 15.5 % (11.5-14.5) Platelet Count 115 x10^3/uL (140-400) 114 x10^3/uL (140-400) Neutrophils (%) (Auto) 58 % (31-73) 60 % (31-73) Lymphocytes (%) (Auto) 28 % (24-48) 29 % (24-48) Monocytes (%) (Auto) 11 % (0-9) 8 % (0-9) Eosinophils (%) (Auto) 2 % (0-3) 2 % (0-3) Basophils (%) (Auto) 1 % (0-3) 1 % (0-3) Neutrophils # (Auto) 1.7 x10^3/uL (1.8-7.7) 1.6 x10^3/uL (1.8-7.7) Lymphocytes # (Auto) 0.8 x10^3/uL (1.0-4.8) 0.8 x10^3/uL (1.0-4.8) Monocytes # (Auto) 0.3 x10^3/uL (0.0-1.1) 0.2 x10^3/uL (0.0-1.1) Eosinophils # (Auto) 0.1 x10^3/uL (0.0-0.7) 0.0 x10^3/uL (0.0-0.7) Basophils # (Auto) 0.0 x10^3/uL (0.0-0.2) 0.0 x10^3/uL (0.0-0.2) Sodium Level 138 mmol/L (136-145) Potassium Level 4.9 mmol/L (3.5-5.1) Chloride Level 102 mmol/L (98-107) Carbon Dioxide Level 29 mmol/L (21-32) Anion Gap 7 (6-14) Blood Urea Nitrogen 54 mg/dL (7-20) Creatinine 5.9 mg/dL (0.6-1.0) Estimated GFR (Cockcroft-Gault) 8.4 Glucose Level 107 mg/dL (70-99) Calcium Level 8.0 mg/dL (8.5-10.1) Review of Systems Constitutional: yes: alert, oriented Ears/Nose/Throat: Yes: no symptom reported Eyes: Yes: no symptom reported Pulmonary: Yes no symptom reported Cardiovascular: Yes no symptom reported Gastrointestional: Yes: no symptom reported Genitourinary: Yes: no symptom reported Musculoskeletal: Yes: no symptom reported Skin: Yes no symptom reported Psychiatric/Neurological: Yes: no symptom reported Endocrine: Yes: no symptom reported Physical Exam General Appearance: no apparent distress Skin: warm Respiratory: bilateral CTA, decreased breath sounds Heart: S1S2 Abdomen: soft, bowel sounds present Genitourinary: bladder flat Extremities: pulses present Neurology: alert, oriented Musculoskeletal: Osteoarthritis Assessment Assessment IMP ESRD ANEMIA DYSPNEA R PLEURAL EFFUSION HYPOTENSION PLAN FRED HD TODAY UF TO DW RIGHT FEM THIGH GRAFT WORKING WELL LEFT FEM TUNNELED HD CATH OUT REECE ANN MD Mar 23, 2020 11:45
[2020-03-23] MEDS ORDERED: MIDO2.5T PO (14:48)
--- NOTE | 2020-03-23 14:49 | SNU/HH DC ---
DISCHARGE ORDERS DISCHARGE INFORMATION: DISCHARGE DATE: Mar 23, 2020 FINAL DIAGNOSIS Problems Medical Problems: (1) Abdominal pain Status: Acute (2) ESRD (end stage renal disease) on dialysis Status: Acute (3) Shortness of breath Status: Acute CONDITION ON DISCHARGE: Stable CODE STATUS: Code Status: Full FPC: SNF STAY <30 DAYS: Yes POST DISCHARGE ORDERS: ACTIVITY ORDERS: Activity as tolerated WEIGHT BEARING STATUS: As tolerated DIET AFTER DISCHARGE: Renal WOUND/INCISION CARE: No wound care needed CHECKS AFTER DISCHARGE: CHECKS AFTER DISCHARGE: Check blood press - daily, Check blood sugar, ac/hs FOLLOW-UP: PHYSICIAN FOLLOW-UP: PCP within 1 week of discharge ADDITIONAL FOLLOW-UP: Coordinator Of [employer] for your HD LAB ORDERS FOR FOLLOW-UP: Renal panel TREATMENT/EQUIPMENT ORDERS: ADAPTIVE EQUIPMENT NEEDED: None Physical Therapy For: Evalulation/Treatment Occupational Therapy For: Evaluation/Treatment DISCHARGE MEDICATIONS: Home Meds Active Scripts Midodrine Hcl (MIDODRINE HCL) 2.5 Mg Tablet, 2.5 MG PO [id number] for low bp for 30 Days, #90 TAB Prov:GILBERT SUNG MD 03/23/20 Topiramate (TOPAMAX) 25 Mg Tablet, 25 MG PO DAILY for tremor for 30 Days, #30 TAB Prov:Joanne HUFF MD 04/23/19 Polyethylene Glycol 3350 (POLYETHYLENE GLYCOL 3350) 17 Gm Powd.pack, 17 GM PO PRN DAILY PRN for CONSTIPATION for 30 Days, #30 PKT Prov:Joanne HUFF MD 04/23/19 Gabapentin (GABAPENTIN) 300 Mg Capsule, 300 MG PO QHS for neuropathy of feet for 30 Days, #30 CAP 6 Refills Prov:Joanne HUFF MD 01/25/19 Reported Medications Levothyroxine Sodium (LEVOTHYROXINE SODIUM) 75 Mcg Tablet, 1 TAB PO DAILY for thyroid supplement, #30 TAB 5 Refills 03/19/20 Fluticasone Propionate (FLUTICASONE PROPIONATE NASAL SPRAY) 16 Gm [place].susp, 2 SPRAY NS DAILY, EACH 05/06/17 Sevelamer Carbonate (RENVELA) 800 Mg Tablet, 800 MG PO TIDWMEALS, TAB 05/06/17 Cholecalciferol (Vitamin D3) (Vitamin D3) 2,000 Unit Tab.chew, 1000 UNIT PO, T AB.CHEW 05/06/17 Albuterol Sulfate (VENTOLIN HFA INHALER) 18 Gm Hfa.aer.ad, 2 PUFF INH BID for FOR ASTHMA, INHALER 0 Refills 05/06/17 Folic Acid/Vitamin B Comp W-C (NEPHRO-BI TABLET) 0.8 Mg Tablet, 0.8 MG PO DA LENA, TAB 12/20/16 Aspirin (LOW DOSE ASPIRIN EC) 81 Mg Tablet.dr, 1 TAB PO DAILY, #30 TAB 3 Refills 03/09/14 Discontinued Reported Medications Amlodipine Besylate (AMLODIPINE BESYLATE) 5 Mg Tablet, 5 MG PO DAILY, TAB 05/06/17 Discontinued Scripts Hydrocodone/Apap 5-325 (NORCO 5-325 TABLET) 1 Each Tablet, 1 TAB PO PRN Q6HRS PRN for PAIN, #10 TAB 0 Refills Prov:MELISSA MIRANDA DO 03/13/20 Clonidine Hcl (CATAPRES) 0.1 Mg Tablet, 0.1 MG PO PRN Q6HRS PRN for SBP>160 OR DBP>90 for 30 Days, #30 TAB Prov:Joanne HUFF MD 04/23/19 GILBRET SUNG MD Mar 23, 2020 14:49
[2020-03-23 15:05] VITALS: BP 130/50
--- NOTE | 2020-03-23 16:58 | NUR ---
Pt discharged to [facility]. Called and gave report to Ophelia. IV removed. Dressing on left heel and left groin changed. Belongings were packed by [employer]. Pt assisted to stretcher and was taken via transportation.
[2020-03-23] MEDS ORDERED: MIDODRINE 2.5 MG TABLET PO SCH (18:00)
--- NOTE | 2020-03-23 22:06 | PDOC3 ---
[facility]-Discharge Summary Date of Admission: Date of Admission: Mar 19, 2020 Date of Discharge: Date of Discharge: Mar 23, 2020 Admission Diagnosis: Admitting Diagnosis: Pleural effusion Shortness of breath Volume overload ESRD on HD Malnutrition Generalized abdominal pain Discharge Diagnosis: Discharge Diagnosis: Right pleural effusion Shortness of breath Volume overload ESRD on HD Malnutrition Generalized abdominal pain PUI for COVID-19 before transfer to SNF Hospital Course: Hospital Course: 74 yo female with with PMHx ESRD on HD, who presents to the ER with complaint of shortness of breath and abdominal pain for the past week. She denies missing any episodes of dialysis, and states her shortness of breath is worse with exertion. She reports upper abdominal pain, /10. Patient was seen in the ER one week ago for similar complaints. She also notes that she is too weak to go home and is largely bedbound. She denies fever, chills, nausea, or vomiting. Patient was admitted and evaluated by pulmonary and nephrology. Patient did not need any intervention except to continue with her HD sessions. Patient's SOB and ABD pain improved after HD. Her BP was around the 90/60s and midodrine 2.5mg TID was started. Patient remained clinically stable throughout her hospital stay. The rest of her hospital course was uneventful. Disposition: Disposition/Orders: D/C to Another Facility Activity: Activity: Resume previous activity Diet: Diet: Renal Medications: Home Meds Active Scripts Midodrine Hcl (MIDODRINE HCL) 2.5 Mg Tablet, 2.5 MG PO [id number] for low bp for 30 Days, #90 TAB Prov:GILBERT SUNG MD 03/23/20 Topiramate (TOPAMAX) 25 Mg Tablet, 25 MG PO DAILY for tremor for 30 Days, #30 TAB Prov:Joanne HUFF MD 04/23/19 Polyethylene Glycol 3350 (POLYETHYLENE GLYCOL 3350) 17 Gm Powd.pack, 17 GM PO PRN DAILY PRN for CONSTIPATION for 30 Days, #30 PKT Prov:Joanne HUFF MD 04/23/19 Gabapentin (GABAPENTIN) 300 Mg Capsule, 300 MG PO QHS for neuropathy of feet for 30 Days, #30 CAP 6 Refills Prov:Joanne HUFF MD 01/25/19 Reported Medications Levothyroxine Sodium (LEVOTHYROXINE SODIUM) 75 Mcg Tablet, 1 TAB PO DAILY for thyroid supplement, #30 TAB 5 Refills 03/19/20 Fluticasone Propionate (FLUTICASONE PROPIONATE NASAL SPRAY) 16 Gm [place].susp, 2 SPRAY NS DAILY, EACH 05/06/17 Sevelamer Carbonate (RENVELA) 800 Mg Tablet, 800 MG PO TIDWMEALS, TAB 05/06/17 Cholecalciferol (Vitamin D3) (Vitamin D3) 2,000 Unit Tab.chew, 1000 UNIT PO, TAB.CHEW 05/06/17 Albuterol Sulfate (VENTOLIN HFA INHALER) 18 Gm Hfa.aer.ad, 2 PUFF INH BID for FOR ASTHMA, INHALER 0 Refills 05/06/17 Folic Acid/Vitamin B Comp W-C (NEPHRO-BI TABLET) 0.8 Mg Tablet, 0.8 MG PO DAILY, TAB 12/20/16 Aspirin (LOW DOSE ASPIRIN EC) 81 Mg Tablet.dr, 1 TAB PO DAILY, #30 TAB 3 Refills 03/09/14 Discontinued Reported Medications Amlodipine Besylate (AMLODIPINE BESYLATE) 5 Mg Tablet, 5 MG PO DAILY, TAB 05/06/17 Discontinued Scripts Hydrocodone/Apap 5-325 (NORCO 5-325 TABLET) 1 Each Tablet, 1 TAB PO PRN Q6HRS PRN for PAIN, #10 TAB 0 Refills Prov:MELISSA MIRANDA DO 03/13/20 Clonidine Hcl (CATAPRES) 0.1 Mg Tablet, 0.1 MG PO PRN Q6HRS PRN for SBP>160 OR DBP>90 for 30 Days, #30 TAB Prov:Joanne HUFF MD 04/23/19 Scheduled Albuterol Sulfate (Ventolin Hfa Inhaler), 2 PUFF INH BID, (Reported) Aspirin (Low Dose Aspirin Ec), 1 TAB PO DAILY, (Reported) Fluticasone Propionate (Fluticasone Propionate Nasal [place]), 2 SPRAY NS DAILY, (Reported) Folic Acid/Vitamin B Comp W-C (Nephro-Bi Tablet), 0.8 MG PO DAILY, (Reported) Gabapentin (Gabapentin), 300 MG PO QHS Levothyroxine Sodium (Levothyroxine Sodium), 1 TAB PO DAILY, (Reported) Midodrine Hcl (Midodrine Hcl), 2.5 MG PO [id number] Sevelamer Carbonate (Renvela), 800 MG PO TIDWMEALS, (Reported) Topiramate (Topamax), 25 MG PO DAILY Scheduled PRN Polyethylene Glycol 3350 (Polyethylene Glycol 3350), 17 GM PO PRN DAILY PRN for CONSTIPATION Miscellaneous Medications Cholecalciferol (Vitamin D3) (Vitamin D3), 1,000 UNIT PO, (Reported) Discontinued Medications Amlodipine Besylate (Amlodipine Besylate), 5 MG PO DAILY, (Reported) Clonidine Hcl (Catapres), 0.1 MG PO PRN Q6HRS PRN for SBP>160 OR DBP>90 Hydrocodone/Apap 5-325 ([place] 5-325 Tablet), 1 TAB PO PRN Q6HRS PRN for PAIN Total Time: Total Time: Total time spent was 40 minutes in preparing scripts, discharge planning with SW and RN, and preparing this discharge summary. Justicifation of Admission Dx: Justifications for Admission: Justification of Admission Dx: Yes (worsening SOA) GILBERT SUNG MD Mar 23, 2020 22:06
== END 2020-03-23 16:30 | DRG 291 ==
LOC: ER 12:17 → 4 NORTH 15:40
PROVIDERS: ADMIT Family Medicine; ATTEND Family Medicine
PROC: 5A1D70Z Performance of Urinary Filtration, Intermittent, Less than 6 Hours Per Day (ICD-10-PCS; 2020-03-21)
PROC: 0JPT3XZ Removal of Tunneled Vascular Access Device from Trunk Subcutaneous Tissue and Fascia, Percutaneous Approach (ICD-10-PCS; principal; 2020-03-22)
PROC: 02PYX3Z Removal of Infusion Device from Great Vessel, External Approach (ICD-10-PCS; 2020-03-22)
DX: I13.2 Hypertensive heart and chronic kidney disease with heart failure and with stage 5 chronic kidney disease, or end stage renal disease (principal); N18.6 End stage renal disease; E46 Unspecified protein-calorie malnutrition; I50.32 Chronic diastolic (congestive) heart failure; J98.11 Atelectasis; N25.81 Secondary hyperparathyroidism of renal origin; Z68.41 Body mass index [BMI] 40.0-44.9, adult; I42.9 Cardiomyopathy, unspecified; Z20.828 Contact with and (suspected) exposure to other viral communicable diseases; D63.1 Anemia in chronic kidney disease; E03.9 Hypothyroidism, unspecified; E11.22 Type 2 diabetes mellitus with diabetic chronic kidney disease; E66.01 Morbid (severe) obesity due to excess calories; E78.00 Pure hypercholesterolemia, unspecified; I25.10 Atherosclerotic heart disease of native coronary artery without angina pectoris; I27.20 Pulmonary hypertension, unspecified; J44.9 Chronic obstructive pulmonary disease, unspecified; F32.9 Major depressive disorder, single episode, unspecified; F41.9 Anxiety disorder, unspecified; K21.9 Gastro-esophageal reflux disease without esophagitis; M19.90 Unspecified osteoarthritis, unspecified site; I95.9 Hypotension, unspecified; Z74.01 Bed confinement status; Z82.49 Family history of ischemic heart disease and other diseases of the circulatory system; Z83.3 Family history of diabetes mellitus; Z85.038 Personal history of other malignant neoplasm of large intestine; Z87.891 Personal history of nicotine dependence; Z90.710 Acquired absence of both cervix and uterus; Z99.2 Dependence on renal dialysis
CPT/HCPCS: 36415; 36589; 71045; 77001; 80048; 80053; 80061; 82553; 83605; 83690; 83735; 84145; 84443; 84484; 85025; 85610; 85730; 93005; 93306; 94640; 94760; 96374; 99285; J0882; J1644; J2270; J3010; J3490; P9046; 97530-GO; 97530-GP; G0378; J7613; U0003-CS